=== PATIENT | male | born 1950 | race Hispanic/Latino ===

== ENCOUNTER 2018-10-30 19:54 | Emergency (ER) | payer OTHER ==
--- NOTE | 2018-10-30 20:22 | RAD REPORT ---
EXAM DESCRIPTION: CT - CTHCSPWOC - 10/30/2018 8:08 pm CLINICAL HISTORY: Trauma, head and neck injury. Headache, CVA COMPARISON: <Comparisons> TECHNIQUE: Axial 5 mm thick images of the head were obtained. Axial 2 mm thick images of the cervical spine were obtained with sagittal and coronal reconstruction images generated and reviewed. All CT scans are performed using dose optimization technique as appropriate and may include automated exposure control or mA/KV adjustment according to patient size. FINDINGS: CT HEAD WITHOUT CONTRAST: A large area of intermediate diminished density is seen in the distribution of the right middle cereb ral artery compatible with a subacute infarct. 5 mm right to left midline shift is evident. No areas of hemorrhage seen within the infarcted parenchyma.No hydrocephalus. No extra-axial fluid collection. Small amount of mucus is seen in the left sphenoid sinus. The paranasal sinuses and mastoids are othe rwise clear.The calvarium is intact. Discontinuity of the left zygomatic arch is present compatible w ith fracture, age undetermined. CT CERVICAL SPINE WITHOUT CONTRAST: No fracture or subluxation.Disc thinning with small endplate osteophytes seen lower cervical spine.No prevertebral soft tissues swelling is identified. The odontoid is normal and the lateral masses are symmetric. IMPRESSION: Large area of subacute nonhemorrhagic CVA involving the right middle cerebral artery ter ritory.5 mm right to left midline shift. No acute cervical spine fracture. Age undetermined left zygomatic arch fracture. The findings were discussed with Dr. Chicas in the emergency room on 10/30/2018 at 8:16 p.m. by tele phone.
--- NOTE | 2018-10-30 20:27 | RAD REPORT ---
EXAM DESCRIPTION: CT - Pelvis Wo Cont - 10/30/2018 8:10 pm CLINICAL HISTORY: TRAUMA Trauma, pelvic pain COMPARISON: No comparisons TECHNIQUE: All CT scans are performed using dose optimization technique as appropriate and may inclu de automated exposure control or mA/KV adjustment according to patient size. FINDINGS: No acute fracture or subluxation is seen. Symmetric sacroiliac joints are noted. No pelvic ascites or pelvic mass identified. Bilateral fat containing inguinal hernias. IMPRESSION: No acute finding evident.
--- NOTE | 2018-10-30 20:31 | RAD REPORT ---
EXAM DESCRIPTION: RAD - Chest Single View - 10/30/2018 8:26 pm CLINICAL HISTORY: weakness Chest pain. COMPARISON: CHEST SINGLE VIEW dated 07/18/2015; CHEST SINGLE VIEW dated 10/18/2013 FINDINGS: Portable technique limits examination quality. The lungs are grossly clear. The heart is normal in size. No displaced fractures.Sternotomy wires not ed. IMPRESSION: No acute intrathoracic process suspected.
[2018-10-30 20:34] LABS: Absolute Lymphocytes (CBC) 2.1 K/uL (0.7-4.9); Absolute Monocytes 1.8 K/uL (0.1-1.3); Absolute Neutrophil 17.5 K/uL (1.8-8.0); Basophils % 0.4 % (0-1.3); Lymphocytes % 9.6 % (15.3-44.8); MPV 9.3 fL (7.6-11.3); Monocytes % 8.2 % (3.3-12.3); RBC Red Blood Cell Count 5.41 M/uL (4.33-5.43)
[2018-10-30 20:37] LABS: Protime INR 1.04
[2018-10-30 21:00] LABS: Albumin 3.7 g/dL (3.4-5.0); Bilirubin Direct 0.3 mg/dL (0-0.2); Bilirubin Total 1.3 mg/dL (0.2-1.0); CKMB Creatine Kinase MB 10.8 ng/mL (0.3-3.6); Magnesium 2.5 mg/dL (1.8-2.4); Potassium 4.1 mmol/L (3.5-5.1); Protein, Total 7.6 g/dL (6.4-8.2); Troponin (Emerg Dept Use Only) 0.22 ng/mL (0.0-0.045)
[2018-10-30 21:07] LABS: Blood Morphology Comment NOT SEEN (NOT SEEN); Platelet Estimate ADEQ
[2018-10-30] MEDS ORDERED: FENTANYL CITR 100 MCG/2 ML ONE (21:28)
--- NOTE | 2018-10-30 21:39 | ER ---
Nurse's Notes [facility] Name: Zain Hope Age: 67 yrs Sex: Male : 1950 Arrival Date: 10/30/2018 Time: 19:54 Bed 2 Private MD: Diagnosis: Cerebrovascular disorders in diseases classified elsewhere;left sided CVA Presentation: 10/30 19:55 Presenting complaint: EMS states: 2 days ago pt developed a severe headache with aa1 blurred vision and fell and has been on the floor unable to get up for 2 days. Reports pt's family found him today when they came to his home and broke into his house. Pt's speech is slurred with slight droop noted to L side of face. Pt also unable to move LUE \T\ LLE. Pt c/o pain behind L eye. Clothes are saturated with urine and abrasions are noted to chest, L shoulder, and lan knees. Transition of care: patient was not received from another setting of care. Onset of symptoms was October 28, 2018. Risk Assessment: Do you want to hurt yourself or someone else? Patient reports no desire to harm self or others. Initial Sepsis Screen: Does the patient meet any 2 criteria? Altered Mental Status. HR > 90 bpm. Does the patient have a suspected source of infection? No. Patient's initial sepsis screen is negative. Care prior to arrival: Cervical collar in place. IV initiated. 20 GA, in the left antecubital area, Glucose check: 219 Oxygen administered. via nasal cannula. 19:55 Method Of Arrival: EMS: [facility] aa1 19:55 Acuity: BRYANT 1 aa1 19:55 An acute neurological deficit is present. The patients blood glucose was checked prior aa1 to arriving to the hospital and was found to be hyperglycemic. 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 - Social history:: Smoking status: Patient uses tobacco products, smokes one-half pack cigarettes per day. - Ebola Screening: : Patient negative for fever greater than or equal to 101.5 degrees Fahrenheit, and additional compatible Ebola Virus Disease symptoms. Screenin:56 Abuse screen: Denies threats or abuse. Denies injuries from another. Nutritional aa1 screening: Difficulty chewing/swallowing? Yes. Tuberculosis screening: No symptoms or risk factors identified. Fall Risk Fall in past 12 months (25 points). Secondary diagnosis (15 points) impaired mobility, IV access (20 points). Assessment: 19:57 General: Appears in no apparent distress. uncomfortable, slender, unkempt, Behavior is aa1 calm, cooperative, appropriate for age, Reports feeling ill for 2-3 days. Pain: Complains of pain in face, scalp, right leg and left leg Pain currently is 10 out of 10 on a pain scale. Pain began 2-3 days ago. Is continuous. Neuro: Level of Consciousness is awake, alert, obeys commands, Oriented to person, place, time, situation, Assistant Activities Director are weak on left Paralysis in left arm(s) leg(s) Speech is slurred, Facial droop on left, Pupils are PERRLA, Reports blurred vision headache in left since 2 days ago. Cardiovascular: Denies chest pain, palpitations, Heart tones S1 S2 present Rhythm is regular. Respiratory: Airway is patent Respiratory effort is even, unlabored, Respiratory pattern is regular, symmetrical. GI: No signs and/or symptoms were reported involving the gastrointestinal system. : No signs and/or symptoms were reported regarding the genitourinary system. EENT: No signs and/or symptoms were reported regarding the EENT system. Derm: Skin is healthy with good turgor, Skin is pink, warm \T\ dry. Musculoskeletal: Circulation, motion, and sensation intact. Capillary refill < 3 seconds. Injury Description: Abrasion sustained to anterior aspect of left upper chest, anterior aspect of left shoulder, right knee and left knee. 19:58 The patient has not been NPO before screening. The patient is currently on the aa1 following diet: regular diet at home but has not eaten or drank in 2 days The patient is alert, and able to follow commands. The patient exhibits slurred or garbled speech. The patient is exhibiting difficulty speaking. The patient does not exhibit difficulty understanding words. The patient is unable to swallow own secretions without drooling or the need for suction. Bedside swallow screening discontinued. Patient kept NPO until cleared by Speech Therapy or Physician. Provider notified of bedside swallow screening results: Dave Chicas MD. 20:01 Reassessment: Pt taken to CT at this time. aa1 20:13 Reassessment: Pt back from CT at this time. aa1 20:16 T-PA (Activase) Screening: Contraindications: Patient reports onset of signs and aa1 symptoms of stroke greater than 6 hours ago: Yes. 20:16 Reassessment: Dr. Chicas reports pt will not be candidate for TPA due to onset of aa1 symptoms outside of window. 20:39 Reassessment: Dr. Chicas at bedside discussing pt status with his family. aa1 21:15 Reassessment: Patient appears in no apparent distress at this time. No changes from aa1 previously documented assessment. Patient and/or family updated on plan of care and expected duration. Pain level reassessed. Awaiting acceptance for transfer. 22:10 Reassessment: Patient appears in no apparent distress at this time. No changes from aa1 previously documented assessment. Patient and/or family updated on plan of care and expected duration. Pain level reassessed. Attempted to call report to [facility] but transfer center was unable to contact nurse who will be receiving pt and said they will have her call back. 22:35 Reassessment: Report given to Arabella Ortiz RN at [facility]. aa1 23:05 Reassessment: Patient appears in no apparent distress at this time. No changes from aa1 previously documented assessment. [facility] present for transfer Patient states feeling better. Vital Signs: 19:55 BP 185 / 108; Pulse 109; Resp 20; Temp 97.8(A); Pulse Ox 100% on R/A; Weight 77.11 kg; aa1 Height 5 ft. 11 in. (180.34 cm); Pain 10/10; 20:29 BP 181 / 89; Pulse 82; Resp 16; Pulse Ox 99% on 2 lpm NC; aa1 20:40 BP 164 / 102; Pulse 94; Resp 18; Pulse Ox 100% on 2 lpm NC; aa1 21:20 BP 172 / 103; Pulse 95; Resp 16; Temp 97.9; Pulse Ox 100% on R/A; aa1 22:02 BP 145 / 81; Pulse 90; Resp 16; Temp 98.1; Pulse Ox 99% on R/A; Pain 7/10; aa1 22:07 Pain 7/10; aa1 23:05 BP 159 / 74; Pulse 96; Resp 16; Pulse Ox 100% on 2 lpm NC; Pain 7/10; aa1 19:55 Body Mass Index 23.71 (77.11 kg, 180.34 cm) aa1 Tawnya Coma Score: 19:55 Eye Response: spontaneous(4). Verbal Response: oriented(5). Motor Response: obeys aa1 commands(6). Total: 15. 21:20 Eye Response: spontaneous(4). Verbal Response: oriented(5). Motor Response: obeys aa1 commands(6). Total: 15. 22:02 Eye Response: spontaneous(4). Verbal Response: oriented(5). Motor Response: obeys aa1 commands(6). Total: 15. NIH Stroke Scale Scores: 19:59 NIHSS Score: 16 aa1 ED Course: 19:54 Patient arrived in ED. ds1 19:55 Dave Chicas MD is Attending Physician. tw4 19:55 Arm band placed on right wrist. Patient placed in an exam room, on a stretcher. aa1 19:56 Patient has correct armband on for positive identification. Placed in gown. Side rails aa1 up X2. gambling monitor on. Pulse ox on. NIBP on. Warm blanket given. 19:56 Maintain EMS IV. Dressing intact. Site clean \T\ dry. Gauge \T\ site: 20g LAC. aa 1 19:58 Oxygen administration via nasal cannula \T\ 2L/min. aa1 20:08 CT Head C Spine In Process Unspecified. EDMS 20:10 CT Pelvis wo Cont In Process Unspecified. EDMS 20:11 Triage completed. aa1 20:14 EKG done, by ED staff, reviewed by Dave Chicas MD. aa1 20:17 Initial lab(s) drawn, by liaison inspection laboratory assistant, sent to lab. aa1 20:26 Stroke CXR 1 View In Process Unspecified. EDMS 20:28 Nora Naranjo, RN is Primary Nurse. aa1 20:40 Notified ED physician of a critical lab result(s). WBCs 21.5. aa1 21:02 Notified ED physician of a critical lab result(s). cpk of 4013, ckmb 10.8. fc 22:16 No provider procedures requiring assistance completed. Patient transferred, IV remains aa1 in place. Removal of Cervical Collar. 22:18 Pillow given. aa1 Administered Medications: 21:23 Drug: fentaNYL (PF) 25 mcg Route: IVP; Site: left antecubital; lp1 22:07 Follow up: Pain 7/10 Adult; Response: No adverse reaction; Pain is decreased aa1 22:19 Drug: NS 0.9% 1000 ml Route: IV; Rate: 1 bolus; Site: left antecubital; aa1 Point of Care Testing: Blood Glucose: 20:14 Blood Glucose: 180 mg/dL; aa1 Ranges: Outcome: 21:39 ER care complete, transfer ordered by . tw4 23:05 Transferred by ground EMS Transfer form completed. aa1 23:05 Condition: stable 23:05 Discharge instructions given to patient, family, Instructed on the need for transfer, Demonstrated understanding of instructions. 23:10 Patient left the ED. aa1 NIH Stroke Scale - NIH Stroke Score Date: 10/30/2018 Time: 19:59 Total Score = 16 1a. Level of Consciousness (LOC) - 0(Alert) 1b. Level of Consciousness (LOC) (Year \T\ Age) - 0(Both) 1c. LOC Commands (Open \T\ Closes Eyes/Wel[employer] Apprentice [employer]) - 0(Both) 2. Best Gaze (Lateral Gaze Paresis) - 0(Normal) 3. Visual Field Loss - 0(No visual loss) 4. Facial Palsy - 2(Partial paralysis) 5a. Left Arm: Motor (10-second hold) - 4(No movement) 5b. Right Arm: Motor (10-second hold) - 0(No drift) 6a. Left Leg: Motor (5-second hold - always test supine) - 4(No movement) 6b. Right Leg: Motor (5-second hold - always test supine) - 0(No drift) 7. Limb Ataxia (finger/nose \T\ heel/mejias - test with eyes open) - 1(Present in one limb) 8. Sensory Loss (pinprick arms/legs/face) - 1(Mild to moderate loss) 9. Best Language: Aphasia (description/naming/reading) - 1(Mild to moderate aphasia) 10. Dysarthria (speech clarity - read or repeat words) - 1(Mild to Moderate) 11. Extinction and Inattention (visual/tactile/auditory/spatial/personal) - 2(Profound) Initials: aa1 Signatures: Dispatcher [employer] EDNora Meyer RN RN aa1 Sophie Wilkerson RN RN Melissa Bolivar ds1 Roma Mock RN RN lp1 Dave Chicas MD MD tw4 Corrections: (The following items were deleted from the chart) 20:42 19:59 T-PA (Activase) Screening: Contraindications: Patient reports onset of aa1 signs and symptoms of stroke greater than 6 hours ago: Yes. aa1 22:07 22:02 BP 145 / 81; Pulse 90bpm; Resp 16bpm; Pulse Ox 99% RA; aa1 aa 22:17 20:17 by liaison inspection laboratory assistant, sent to lab. aa1 aa1
--- NOTE | 2018-10-30 21:40 | EDPHYS ---
Physician Documentation [facility] Name: Zain Hope Age: 67 yrs Sex: Male : 1950 Arrival Date: 10/30/2018 Time: 19:54 Bed 2 Private MD: ED Physician Dave Chicas HPI: 10/30 21:51 This 67 yrs old Male presents to ER via EMS with complaints of Weakness, tw4 Slurred Speech. 21:51 The patient presents to the emergency department with weakness of the left upper tw4 extremity, that is severe, complete paralysis, left lower extremity, that is severe, complete paralysis, left side of the face, a speech or higher order brain function problem, aphasia. Onset: The symptoms/episode began/occurred 2 day(s) ago. Context: occurred at home. Associated signs and symptoms: The patient has no apparent associated signs or symptoms. Severity of symptoms: At their worst the symptoms were moderate in the emergency department the symptoms are unchanged. Patient's baseline: Neuro: alert and fully oriented, Motor: no deficits, Ambulation: walks without assistance. Current symptoms: Currently, the patient is not experiencing any symptoms. The patient has not experienced similar symptoms in the past. 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 - Social history:: Smoking status: Patient uses tobacco products, smokes one-half pack cigarettes per day. - Ebola Screening: : Patient negative for fever greater than or equal to 101.5 degrees Fahrenheit, and additional compatible Ebola Virus Disease symptoms. ROS: 21:51 Constitutional: Negative for fever, chills, and weight loss, Eyes: Negative for injury, tw4 pain, redness, and discharge, Cardiovascular: Negative for chest pain, palpitations, and edema, Respiratory: Negative for shortness of breath, cough, wheezing, and pleuritic chest pain, Abdomen/GI: Negative for abdominal pain, nausea, vomiting, diarrhea, and constipation, Back: Negative for injury and pain, MS/Extremity: Negative for injury and deformity. 21:51 Neuro: Positive for gait disturbance, numbness, speech changes, weakness. Exam: 21:51 Constitutional: This is a well developed, well nourished patient who is awake, alert, tw4 and in no acute distress. Head/Face: Normocephalic, atraumatic. Chest/axilla: Normal chest wall appearance and motion. Nontender with no deformity. No lesions are appreciated. Cardiovascular: Regular rate and rhythm with a normal S1 and S2. No gallops, murmurs, or rubs. Normal PMI, no JVD. No pulse deficits. Respiratory: Lungs have equal breath sounds bilaterally, clear to auscultation and percussion. No rales, rhonchi or wheezes noted. No increased work of breathing, no retractions or nasal flaring. Abdomen/GI: Soft, non-tender, with normal bowel sounds. No distension or tympany. No guarding or rebound. No evidence of tenderness throughout. Back: No spinal tenderness. No costovertebral tenderness. Full range of motion. MS/ Extremity: Pulses equal, no cyanosis. Neurovascular intact. Full, normal range of motion. 21:51 Neuro: Orientation: is normal, Mentation: is normal, Motor: complete paralysis. Vital Signs: 19:55 BP 185 / 108; Pulse 109; Resp 20; Temp 97.8(A); Pulse Ox 100% on R/A; Weight 77.11 kg; aa1 Height 5 ft. 11 in. (180.34 cm); Pain 10/10; 20:29 BP 181 / 89; Pulse 82; Resp 16; Pulse Ox 99% on 2 lpm NC; aa1 20:40 BP 164 / 102; Pulse 94; Resp 18; Pulse Ox 100% on 2 lpm NC; aa1 21:20 BP 172 / 103; Pulse 95; Resp 16; Temp 97.9; Pulse Ox 100% on R/A; aa1 22:02 BP 145 / 81; Pulse 90; Resp 16; Temp 98.1; Pulse Ox 99% on R/A; Pain 7/10; aa1 22:07 Pain 7/10; aa1 23:05 BP 159 / 74; Pulse 96; Resp 16; Pulse Ox 100% on 2 lpm NC; Pain 7/10; aa1 19:55 Body Mass Index 23.71 (77.11 kg, 180.34 cm) aa1 NIH Stroke Scale Scores: 19:59 NIHSS Score: 16 aa1 Pelham Coma Score: 19:55 Eye Response: spontaneous(4). Verbal Response: oriented(5). Motor Response: obeys aa1 commands(6). Total: 15. 21:20 Eye Response: spontaneous(4). Verbal Response: oriented(5). Motor Response: obeys aa1 commands(6). Total: 15. 22:02 Eye Response: spontaneous(4). Verbal Response: oriented(5). Motor Response: obeys aa1 commands(6). Total: 15. MDM: 19:55 Patient medically screened. tw4 21:51 Data reviewed: vital signs, nurses notes. Data interpreted: Pulse oximetry: tw4 Interpretation: normal. Test interpretation: by ED physician or midlevel provider: ECG. Counseling: I had a detailed discussion with the patient and/or guardian regarding: the historical points, exam findings, and any diagnostic results supporting the discharge/admit diagnosis, the presence of at least one elevated blood pressure reading (>120/80) during this emergency department visit. 10/30 20:00 Order name: Amylase, Serum 10/30 20:00 Order name: Hepatic Function; Complete Time: 21:29 [facility] 10/30 21:29 Interpretation: Normal except: AST 74; BILIT 1.3; BILID 0.3; GLOB 3.9; A/G 0.9. 10/30 20:00 Order name: Magnesium; Complete Time: 21:29 [facility] 10/30 21:29 Interpretation: Normal except: MG 2.5. 10/30 20:00 Order name: Troponin (emerg Dept Use Only); Complete Time: 21:29 [facility] 10/30 21:29 Interpretation: Normal except. 10/30 20:00 Order name: Lipase 10/30 20:00 Order name: CPK; Complete Time: 21:27 [facility] 10/30 20:00 Order name: Ckmb; Complete Time: 21:28 [facility] 10/30 21:28 Interpretation: Normal except: CKMB 10.8. 10/30 20:00 Order name: Basic Metabolic Panel; Complete Time: 21:27 [facility] 10/30 21:28 Interpretation: Normal except: GLUC 182; BUN 35; GFR 59. 10/30 20:00 Order name: CBC with Diff; Complete Time: 21:29 tw4 10/30 21:29 Interpretation: Normal except: WBC 21.5; MCV 85.1. tw4 10/30 20:00 Order name: Protime (+inr); Complete Time: 21:29 tw4 10/30 21:29 Interpretation: Within normal limits. tw4 10/30 20:00 Order name: Ptt, Activated; Complete Time: 21:29 tw4 10/30 21:29 Interpretation: Within normal limits: PTT 29.4. tw4 10/30 21:07 Order name: Manual Differential EDRI 10/30 22:07 Order name: Glucose, Ancillary Testing [facility]RI 10/30 20:00 Order name: Stroke CXR 1 View tw4 10/30 20:00 Order name: Accucheck; Complete Time: 20:29 tw4 10/30 20:00 Order name: Cardiac monitoring; Complete Time: 20:29 4 10/30 20:00 Order name: EKG - Nurse/Tech; Complete Time: 20:29 4 10/30 20:00 Order name: IV Saline Lock; Complete Time: 20:29 tw4 10/30 20:00 Order name: Labs collected and sent; Complete Time: 20:29 4 10/30 20:00 Order name: NPO; Complete Time: 20:29 tw4 10/30 20:00 Order name: O2 Per Protocol; Complete Time: 20:28 tw4 10/30 20:00 Order name: O2 Sat Monitoring; Complete Time: 20:28 4 10/30 20:00 Order name: CT Head C Spine; Complete Time: 20:57 tw4 10/30 20:00 Order name: CT Pelvis wo Cont tw4 10/30 20:00 Order name: Stroke Swallow Screen; Complete Time: 20:28 tw4 EC:51 Rate is 92 beats/min. Rhythm is regular, Normal Sinus Rhythm. QRS Fitzpatrick is Normal. PA tw4 interval is normal. QRS interval is normal. QT interval is normal. No Q waves. No ST changes noted. Clinical impression: NSR w/ Non-specific ST/T Changes. Interpreted by me. Reviewed by me. Administered Medications: 21:23 Drug: fentaNYL (PF) 25 mcg Route: IVP; Site: left antecubital; lp1 22:07 Follow up: Pain 02/06 Adult; Response: No adverse reaction; Pain is decreased aa1 22:19 Drug: NS 0.9% 1000 ml Route: IV; Rate: 1 bolus; Site: left antecubital; aa1 Point of Care Testing: Blood Glucose: 20:14 Blood Glucose: 180 mg/dL; aa1 Ranges: Critical Glucose Levels:Adult <50 mg/dl or >400 mg/dl <40 mg/dl or >180 mg/dl Disposition: 10/30/18 21:[address] [facility]. Diagnosis are Cerebrovascular disorders in diseases classified elsewhere, left sided CVA. - Reason for transfer: Higher level of care. - Accepting physician is Dr Herzog. - Condition is Serious. - Problem is an ongoing problem. - Symptoms are unchanged. NIH Stroke Scale - NIH Stroke Score Date: 10/30/2018 Time: 19:59 Total Score = 16 1a. Level of Consciousness (LOC) - 0(Alert) 1b. Level of Consciousness (LOC) (Year \T\ Age) - 0(Both) 1c. LOC Commands (Open \T\ Closes Eyes/Data Center Project Manager) - 0(Both) 2. Best Gaze (Lateral Gaze Paresis) - 0(Normal) 3. Visual Field Loss - 0(No visual loss) 4. Facial Palsy - 2(Partial paralysis) 5a. Left Arm: Motor (10-second hold) - 4(No movement) 5b. Right Arm: Motor (10-second hold) - 0(No drift) 6a. Left Leg: Motor (5-second hold - always test supine) - 4(No movement) 6b. Right Leg: Motor (5-second hold - always test supine) - 0(No drift) 7. Limb Ataxia (finger/nose \T\ heel/mejias - test with eyes open) - 1(Present in one limb) 8. Sensory Loss (pinprick arms/legs/face) - 1(Mild to moderate loss) 9. Best Language: Aphasia (description/naming/reading) - 1(Mild to moderate aphasia) 10. Dysarthria (speech clarity - read or repeat words) - 1(Mild to Moderate) 11. Extinction and Inattention (visual/tactile/auditory/spatial/personal) - 2(Profound) Initials: aa1 Signatures: Dispatcher [employer] Nora Saravia RN RN aa1 Roma Mock RN RN lp1 aDve Chicas MD MD tw4 Corrections: (The following items were deleted from the chart) 20:05 20:01 CT-STROKE BRAIN W/O CONTRAST+CT.RAD.BRZ ordered. EDRI EDMS 20:52 20:16 CREATINE PHOSPHOKINASE+C.LAB.BRZ ordered. EDRI EDMS 23:10 21:39 10/30/2018 21:[address] [facility]. aa1 Diagnosis is Cerebrovascular disorders in diseases classified elsewhere; left sided CVA. Reason for transfer: Higher level of care. Accepting physician is Dr Herzog. Condition is Serious. Problem is an ongoing problem. Symptoms are unchanged. tw4
== END 2018-10-30 23:10 | disposition short-term general hospital (02) ==
LOC: ER 19:54
DX: I63.9 Cerebral infarction, unspecified (principal); I10 Essential (primary) hypertension; F17.210 Nicotine dependence, cigarettes, uncomplicated; R29.716 NIHSS score 16; Z95.1 Presence of aortocoronary bypass graft
CPT/HCPCS: 85025; 80048; 36415; 82150; 83735; 82550; 85610; 82962; 80076; 85730; 84484; 82553; 83690; 70450; 72125; 72192; 71045; J3010

== ENCOUNTER 2019-04-16 02:54 | Emergency (ER) | payer OTHER ==
--- OUTSIDE RECORDS SUMMARY | 2019-04-16 02:59 | XMS REPORT | Clinical Summary ---
:1950 Author Organization [facility] Address [address] [place] [address] Care Team Providers Name Role Phone Unavailable Primary Care Provider Unavailable Allergies No Known Allergies Medications Medication Sig Dispensed Refills Start End Date Status Date metFORMIN Take 1,000 mg by 0 Active (GLUCOPHAGE) 1000 mouth 2 (two) MG tablet times daily with breakfast and dinner. levothyroxine Take 50 mcg by 0 Active (SYNTHROID, mouth Every LEVOTHROID) 50 MCG morning on an tablet empty stomach. losartan 12.5 MG Take 12.5 mg by 0 Active halftab half mouth daily. tablet rosuvastatin Take 20 mg by 0 Active (CRESTOR) 20 MG mouth daily. tablet metoprolol Take 12.5 mg by 0 Active (LOPRESSOR) 12.5 mouth 2 (two) MG halftab half times daily. tablet acetaminophen Take 2 tablets 30 tablet 0 11/15/19 Active (TYLENOL) 325 MG (650 mg total) by 9 20 tablet mouth every 4 (four) hours as needed for up to 360 days. aspirin 325 MG Take 1 tablet (325 0 11/21/19 Active tablet mg total) by mouth 9 20 daily. fLUoxetine Take 1 capsule (20 30 capsule 0 11/21/19 Active (PROZAC) 20 MG mg total) by mouth 9 20 capsule daily. senna (SENOKOT) 1 tablet (8.6 mg 0 11/20/19 Active 8.6 mg tablet total) by G-tube 9 20 route daily with lunch. ticagrelor Take 1 tablet (90 0 Active (BRILINTA) 90 mg mg total) by mouth 9 Tab tablet 2 (two) times daily. zinc oxide 20 % Apply topically as 56.7 g 0 11/20/19 Active ointment needed. 9 insulin glargine Inject 8 Units 10 mL 0 Active (LANTUS U-100 subcutaneously 2 9 INSULIN) 100 (two) times daily unit/mL injection Use as directed. clopidogrel Take 75 mg by 0 11/21/19 Discontinued (PLAVIX) 75 mg mouth daily. 19 tablet insulin degludec Inject 0 11/21/19 Discontinued 200 unit/mL (3 mL) subcutaneously. [address] 1 patch onto 30 patch 0 12/21/19 (LIDODERM) 5 % the skin daily for 04 18 patch 30 days Remove & Discard patch within 12 hours or as directed by MD. nicotine (NICODERM Place 1 patch onto 28 patch 0 12/22/19 CQ) 21 mg/24 hr the skin daily for 04 18 patch 30 days. traMADol (ULTRAM) Take 2 tablets 30 tablet 0 12/01/19 50 mg tablet (100 mg total) by 04 18 mouth every 6 (six) hours as needed for up to 10 days. Max Daily Amount: 400 mg sulfamethoxazole-t Take 10 mLs by 0 11/21/19 Discontinued rimethoprim mouth 2 (two) 9 (BACTRIM,SEPTRA) times daily for 2 200-40 mg/5 mL days. suspension amoxicillin-clavul Take 6.3 mLs (250 0 11/24/19 anate (AUGMENTIN) mg total) by mouth 04 18 200-28.5 mg/5 mL 2 (two) times suspension daily for 3 days. Active Problems Problem Noted Date Stenosis of right carotid artery 11/08/2018 History of right common carotid artery stent placement 11/08/2018 Essential hypertension 11/08/2018 Acute ischemic stroke 10/31/2018 Encounters Date Type Specialty Care Team Description 11/16/2018 Surgery Kelechi Garcia R & L CATH / MD Mathew CORONARY ANGIOS / PCI 11/16/2018 Orders Only General Internal Medicine 11/09/2018 Anesthesia Event Gastroenterology Scooter Phan 11/09/2018 Surgery Gastroenterology Arely Childs UPPER ENDOSCOPY,BEAN Irving MD 11/07/2018 Surgery Virtual, Surgeon PROCEDURE DONE OUTSIDE OR 11/07/2018 Anesthesia Event Desire Lira MD 11/05/2018 Anesthesia Event Mirlande Gonzalez MD 11/05/2018 Surgery Virtual, Surgeon PROCEDURE DONE OUTSIDE OR 11/02/2018 Anesthesia Event Vanessa Bailey MD 11/02/2018 Surgery Virtual, Surgeon Canceled PROCEDURE DONE OUTSIDE OR 10/31/2018 [facility], Cerebrovascular accident (CVA) due to occlusion of right middle cerebral artery (HCC); - Encounter Medicine Suhail Non-STEMI (non-ST elevated myocardial infarction) ([facility]); 11/20/2018 MD Garry Type 2 diabetes mellitus with complication, unspecified whether chcf insulin use ([facility]); Brooks, Essential hypertension; MD Elmer Coronary artery disease due to lipid rich plaque; Liliana Adame, Stroke due to embolism of right middle cerebral artery ([facility]); Stenosis of right carotid artery; Oropharyngeal dysphagia; Acute ischemic stroke ([facility]); History of right common carotid artery stent placement; Impaired mobility and ADLs; Debility; Physical deconditioning; 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 Last Filed Vital Signs Vital Sign Reading Time Taken Blood Pressure 151/78 11/20/2018 3:32 PM CDT Pulse 84 11/20/2018 3:32 PM CDT Temperature 35.6 C (96.1 F) 11/20/2018 3:32 PM CDT Respiratory Rate 19 11/20/2018 3:32 PM CDT Oxygen Saturation 96% 11/20/2018 3:32 PM CDT Inhaled Oxygen Concentration 21% 11/16/2018 9:22 PM CDT Weight 71 kg (156 lb 8.4 oz) 11/07/2018 8:00 PM CDT Height 180.3 cm (5' 11") 11/07/2018 8:00 PM CDT Body Mass Index 21.83 11/07/2018 8:00 PM CDT Plan of Treatment Not on file Procedures Procedure Name Priority Date/Time Associated Comments Diagnosis REPORT OF PROCEDURE - 11/22/2018 11:40 ENDOSCOPY SCAN AM CDT CARDIAC CATH REPORT - 11/22/2018 11:40 SCAN AM CDT RHYTHM STRIP - SCAN 11/22/2018 11:40 AM CDT POCT-GLUCOSE METER Routine 11/20/2018 5:09 Results for this PM CDT procedure are in the results section. POCT-GLUCOSE METER Routine 11/20/2018 12:35 Results for this PM CDT procedure are in the results section. POCT-GLUCOSE METER Routine 11/20/2018 6:15 Results for this AM CDT procedure are in the results section. CBC (HEMOGRAM ONLY) Routine 11/20/2018 4:53 Results for this AM CDT procedure are in the results section. BASIC METABOLIC PANEL Routine 11/20/2018 4:53 Results for this (7) AM CDT procedure are in the results section. POCT-GLUCOSE METER Routine 11/19/2018 11:35 Results for this PM CDT procedure are in the results section. POCT-GLUCOSE METER Routine 11/19/2018 5:44 Results for this PM CDT procedure are in the results section. URINALYSIS WITH Routine 11/19/2018 1:26 Results for this MICROSCOPIC IF PM CDT procedure are in INDICATED the results section. POCT-GLUCOSE METER Routine 11/19/2018 11:56 Results for this AM CDT procedure are in the results section. POCT-GLUCOSE METER Routine 11/19/2018 6:12 Results for this AM CDT procedure are in the results section. BASIC METABOLIC PANEL Routine 11/19/2018 4:34 Results for this (7) AM CDT procedure are in the results section. CBC (HEMOGRAM ONLY) Routine 11/19/2018 4:34 Results for this AM CDT procedure are in the results section. POCT-GLUCOSE METER Routine 11/18/2018 5:08 Results for this PM CDT procedure are in the results section. URINALYSIS W/ REFLEX Routine 11/18/2018 1:47 Results for this URINE CULTURE PM CDT procedure are in the results section. URINE CULTURE Routine 11/18/2018 1:47 Results for this PM CDT procedure are in the results section. POCT-GLUCOSE METER Routine 11/18/2018 11:33 Results for this AM CDT procedure are in the results section. POCT-GLUCOSE METER Routine 11/18/2018 9:42 Results for this AM CDT procedure are in the results section. ECG 12-LEAD STAT 11/18/2018 4:57 Results for this AM CDT procedure are in the results section. ECG 12-LEAD Routine 11/18/2018 4:56 Results for this AM CDT procedure are in the results section. TROPONIN I Routine 11/18/2018 4:42 Results for this AM CDT procedure are in the results section. BASIC METABOLIC PANEL Routine 11/18/2018 4:42 Results for this (7) AM CDT procedure are in the results section. CBC (HEMOGRAM ONLY) Routine 11/18/2018 4:42 Results for this AM CDT procedure are in the results section. POCT-GLUCOSE METER Routine 11/18/2018 1:40 Results for this AM CDT procedure are in the results section. TROPONIN I Routine 11/17/2018 10:54 Results for this PM CDT procedure are in the results section. URINALYSIS Routine 11/17/2018 10:48 Results for this MICROSCOPIC PM CDT procedure are in the results section. URINALYSIS WITH Routine 11/17/2018 10:48 Results for this MICROSCOPIC IF PM CDT procedure are in INDICATED the results section. BLOOD CULTURE Routine 11/17/2018 5:04 Results for this PM CDT procedure are in the results section. TROPONIN I Routine 11/17/2018 4:58 Results for this PM CDT procedure are in the results section. BLOOD CULTURE Routine 11/17/2018 4:57 Results for this PM CDT procedure are in the results section. POCT-GLUCOSE METER Routine 11/17/2018 4:23 Results for this PM CDT procedure are in the results section. POCT-GLUCOSE METER Routine 11/17/2018 11:18 Results for this AM CDT procedure are in the results section. TROPONIN I Routine 11/17/2018 10:17 Results for this AM CDT procedure are in the results section. POCT-GLUCOSE METER Routine 11/17/2018 5:49 Results for this AM CDT procedure are in the results section. BASIC METABOLIC PANEL Routine 11/17/2018 4:21 Results for this (7) AM CDT procedure are in the results section. CBC (HEMOGRAM ONLY) Routine 11/17/2018 4:21 Results for this AM CDT procedure are in the results section. TROPONIN I Routine 11/17/2018 4:21 Results for this AM CDT procedure are in the results section. POCT-GLUCOSE METER Routine 11/16/2018 11:36 Results for this PM CDT procedure are in the results section. ECG 12-LEAD STAT 11/16/2018 6:36 Results for this PM CDT procedure are in the results section. POCT-GLUCOSE METER Routine 11/16/2018 6:08 Results for this PM CDT procedure are in the results section. TROPONIN I STAT 11/16/2018 6:08 Results for this PM CDT procedure are in the results section. ECG 12-LEAD Routine 11/16/2018 2:24 PM CDT Procedure Note - Interface, External Ris In - 11/16/2018 3:36 PM CDT Ventricular Rate 71 BPM Atrial Rate 71 BPM P-R Interval 148 ms QRS Duration 98 ms Q-T Interval 404 ms QTC Calculation(Bazett) 439 ms P [place] 68 degrees R [place] 26 degrees T [place] 102 degrees Normal sinus rhythm with sinus arrhythmia Possible Inferior infarct (cited on or before 01-NOV-2018) Abnormal ECG When compared with ECG of 01-NOV-2018 15:31, Premature atrial complexes are no longer Present ECG 12-LEAD Routine 11/16/2018 2:24 Results for this PM CDT procedure are in the results section. R & L CATH / CORONARY 11/16/2018 11:40 Chest pain, ANGIOS / PCI AM CDT unspecified type POCT-GLUCOSE METER Routine 11/16/2018 5:52 Results for this AM CDT procedure are in the results section. BASIC METABOLIC PANEL Routine 11/16/2018 5:43 Results for this (7) AM CDT procedure are in the results section. CBC (HEMOGRAM ONLY) Routine 11/16/2018 5:43 Results for this AM CDT procedure are in the results section. POCT-GLUCOSE METER Routine 11/15/2018 11:39 Results for this PM CDT procedure are in the results section. POCT-GLUCOSE METER Routine 11/15/2018 5:32 Results for this PM CDT procedure are in the results section. POCT-GLUCOSE METER Routine 11/15/2018 12:20 Results for this PM CDT procedure are in the results section. POCT-GLUCOSE METER Routine 11/15/2018 6:30 Results for this AM CDT procedure are in the results section. BASIC METABOLIC PANEL Routine 11/15/2018 5:11 Results for this (7) AM CDT procedure are in the results section. CBC (HEMOGRAM ONLY) Routine 11/15/2018 5:11 Results for this AM CDT procedure are in the results section. POCT-GLUCOSE METER Routine 11/15/2018 2:31 Results for this AM CDT procedure are in the results section. POCT-GLUCOSE METER Routine 11/14/2018 4:49 Results for this PM CDT procedure are in the results section. POCT-GLUCOSE METER Routine 11/14/2018 12:07 Results for this PM CDT procedure are in the results section. POCT-GLUCOSE METER Routine 11/14/2018 5:34 Results for this AM CDT procedure are in the results section. CBC (HEMOGRAM ONLY) Routine 11/14/2018 4:50 Results for this AM CDT procedure are in the results section. BASIC METABOLIC PANEL Routine 11/14/2018 4:50 Results for this (7) AM CDT procedure are in the results section. POCT-GLUCOSE METER Routine 11/14/2018 12:09 Results for this AM CDT procedure are in the results section. ECHOCARDIOGRAM REPORT - 11/13/2018 9:22 SCAN PM CDT POCT-GLUCOSE METER Routine 11/13/2018 5:57 Results for this PM CDT procedure are in the results section. CT SPINE CERVICAL Routine 11/13/2018 3:14 Results for this WITHOUT IV CONTRAST PM CDT procedure are in the results section. CT BRAIN WITHOUT IV Routine 11/13/2018 3:13 Results for this CONTRAST PM CDT procedure are in the results section. POCT-GLUCOSE METER Routine 11/13/2018 12:08 Results for this PM CDT procedure are in the results section. CBC W/PLT COUNT & AUTO Routine 11/13/2018 7:21 Results for this DIFFERENTIAL AM CDT procedure are in the results section. BASIC METABOLIC PANEL Routine 11/13/2018 7:21 Results for this (7) AM CDT procedure are in the results section. CBC W/PLT COUNT & AUTO Routine 11/13/2018 7:21 Results for this DIFFERENTIAL AM CDT procedure are in the results section. POCT-GLUCOSE METER Routine 11/13/2018 5:34 Results for this AM CDT procedure are in the results section. POCT-GLUCOSE METER Routine 11/13/2018 12:23 Results for this AM CDT procedure are in the results section. POCT-GLUCOSE METER Routine 11/12/2018 6:07 Results for this PM CDT procedure are in the results section. LIMITED 2D Routine 11/12/2018 2:31 Results for this ECHOCARDIOGRAM PM CDT procedure are in the results section. POCT-GLUCOSE METER Routine 11/12/2018 12:36 Results for this PM CDT procedure are in the results section. POCT-GLUCOSE METER Routine 11/12/2018 6:31 Results for this AM CDT procedure are in the results section. BASIC METABOLIC PANEL Routine 11/12/2018 4:44 Results for this (7) AM CDT procedure are in the results section. CBC (HEMOGRAM ONLY) Routine 11/12/2018 4:44 Results for this AM CDT procedure are in the results section. POCT-GLUCOSE METER Routine 11/12/2018 12:09 Results for this AM CDT procedure are in the results section. POCT-GLUCOSE METER Routine 11/11/2018 5:01 Results for this PM CDT procedure are in the results section. POCT-GLUCOSE METER Routine 11/11/2018 12:39 Results for this PM CDT procedure are in the results section. POCT-GLUCOSE METER Routine 11/11/2018 6:01 Results for this AM CDT procedure are in the results section. BASIC METABOLIC PANEL Routine 11/11/2018 4:23 Results for this (7) AM CDT procedure are in the results section. CBC (HEMOGRAM ONLY) Routine 11/11/2018 4:23 Results for this AM CDT procedure are in the results section. POCT-GLUCOSE METER Routine 11/11/2018 12:10 Results for this AM CDT procedure are in the results section. POCT-GLUCOSE METER Routine 2018 5:42 Results for this PM CDT procedure are in the results section. POCT-GLUCOSE METER Routine 2018 12:02 Results for this PM CDT procedure are in the results section. POCT-GLUCOSE METER Routine 2018 6:06 Results for this AM CDT procedure are in the results section. BASIC METABOLIC PANEL Routine 2018 4:37 Results for this (7) AM CDT procedure are in the results section. CBC (HEMOGRAM ONLY) Routine 2018 4:37 Results for this AM CDT procedure are in the results section. POCT-GLUCOSE METER Routine 2018 1:09 Results for this AM CDT procedure are in the results section. REPORT OF PROCEDURE - 11/09/2018 3:51 ENDOSCOPY URL PM CDT UPPER ENDOSCOPY,PEG 11/09/2018 3:00 Dysphagia, PM CDT unspecified type Special Needs (REG TF) POCT-GLUCOSE METER Routine 11/09/2018 11:46 AM Results for this CDT procedure are in the results section. POCT-GLUCOSE METER Routine 11/09/2018 6:39 AM Results for this CDT procedure are in the results section. BASIC METABOLIC PANEL Routine 11/09/2018 5:14 AM Results for this (7) CDT procedure are in the results section. CBC (HEMOGRAM ONLY) Routine 11/09/2018 5:14 AM Results for this CDT procedure are in the results section. POCT-GLUCOSE METER Routine 11/08/2018 11:56 PM Results for this CDT procedure are in the results section. POCT-GLUCOSE METER Routine 11/08/2018 5:04 PM Results for this CDT procedure are in the results section. POCT-GLUCOSE METER Routine 11/08/2018 11:29 AM Results for this CDT procedure are in the results section. POCT-GLUCOSE METER Routine 11/08/2018 6:35 AM Results for this CDT procedure are in the results section. BASIC METABOLIC PANEL Routine 11/08/2018 5:14 AM Results for this (7) CDT procedure are in the results section. CBC (HEMOGRAM ONLY) Routine 11/08/2018 5:14 AM Results for this CDT procedure are in the results section. POCT-GLUCOSE METER Routine 11/08/2018 1:20 AM Results for this CDT procedure are in the results section. POCT-GLUCOSE METER Routine 11/07/2018 6:11 PM Results for this CDT procedure are in the results section. NV CAROTID ARTERY Routine 11/07/2018 4:48 PM Results for this STENT PLACEMENT W CDT procedure are in PROTECTION the results section. PROCEDURE DONE OUTSIDE 11/07/2018 4:00 PM Carotid stenosis, OR CDT right Special Needs REQ: AFTERNOON POCT-ACT Routine 11/07/2018 3:51 PM Results for this CDT procedure are in the results section. POCT-GLUCOSE METER Routine 11/07/2018 12:40 PM Results for this CDT procedure are in the results section. POCT-P2Y12 PLATELET STAT 11/07/2018 12:09 PM Results for this AGGREGATION CDT procedure are in the results section. CT BRAIN WITHOUT IV Routine 11/07/2018 9:02 AM Results for this CONTRAST CDT procedure are in the results section. POCT-GLUCOSE METER Routine 11/07/2018 6:36 AM Results for this CDT procedure are in the results section. POCT-P2Y12 PLATELET Routine 11/07/2018 5:17 AM Results for this AGGREGATION CDT procedure are in the results section. BASIC METABOLIC PANEL Routine 11/07/2018 5:17 AM Results for this (7) CDT procedure are in the results section. CBC (HEMOGRAM ONLY) Routine 11/07/2018 5:17 AM Results for this CDT procedure are in the results section. POCT-GLUCOSE METER Routine 11/06/2018 11:27 PM Results for this CDT procedure are in the results section. XR ABDOMEN 1 VIEW STAT 11/06/2018 6:45 PM Results for this CDT procedure are in the results section. POCT-GLUCOSE METER Routine 11/06/2018 6:31 PM Results for this CDT procedure are in the results section. POCT-GLUCOSE METER Routine 11/06/2018 2:32 PM Results for this CDT procedure are in the results section. XR ESOPH SWALLOW Routine 11/06/2018 1:35 PM Results for this FUNCTION W/CINE VIDEO CDT procedure are in the results section. POCT-GLUCOSE METER Routine 11/06/2018 6:13 AM Results for this CDT procedure are in the results section. BASIC METABOLIC PANEL Routine 11/06/2018 5:29 AM Results for this (7) CDT procedure are in the results section. CBC (HEMOGRAM ONLY) Routine 11/06/2018 5:29 AM Results for this CDT procedure are in the results section. POCT-GLUCOSE METER Routine 11/06/2018 1:32 AM Results for this CDT procedure are in the results section. POCT-GLUCOSE METER Routine 11/05/2018 7:10 PM Results for this CDT procedure are in the results section. NV CEREBRAL 4 VESSEL Routine 11/05/2018 6:00 PM Results for this ANGIOGRAM CDT procedure are in the results section. PROCEDURE DONE 11/05/2018 2:00 PM Occlusion of right OUTSIDE OR CDT internal carotid artery Special Needs REQ:TF POCT-GLUCOSE METER Routine 11/05/2018 11:03 AM CDT POCT-GLUCOSE METER Routine 11/05/2018 6:35 AM CDT BASIC METABOLIC PANEL (7) Routine 11/05/2018 6:13 AM CDT PT/APTT Routine 11/05/2018 4:57 AM CDT CBC (HEMOGRAM ONLY) Routine 11/05/2018 4:57 AM CDT POCT-GLUCOSE METER Routine 11/04/2018 10:52 PM CDT ECHOCARDIOGRAM REPORT - SCAN 11/04/2018 9:10 PM CDT POCT-GLUCOSE METER Routine 11/04/2018 5:42 PM CDT POCT-GLUCOSE METER Routine 11/04/2018 12:35 PM CDT BASIC METABOLIC PANEL (7) Routine 11/04/2018 7:57 AM CDT CBC (HEMOGRAM ONLY) Routine 11/04/2018 5:15 AM CDT POCT-GLUCOSE METER Routine 11/03/2018 11:41 PM CDT TRANSFUSION SERVICE REPORT - 11/03/2018 5:51 PM CDT SCAN POCT-GLUCOSE METER Routine 11/03/2018 5:28 PM CDT 2D ECHO W/ DOPPLER Routine 11/03/2018 1:30 PM CDT Results for this (CW/PW/COLOR) procedure are in the results section. POCT-GLUCOSE METER Routine 11/03/2018 12:30 PM CDT POCT-GLUCOSE METER Routine 11/03/2018 5:49 AM CDT BASIC METABOLIC PANEL (7) Routine 11/03/2018 4:41 AM CDT CBC (HEMOGRAM ONLY) Routine 11/03/2018 4:41 AM CDT POCT-GLUCOSE METER Routine 11/02/2018 10:55 PM CDT PERIPHERAL VASCULAR REPORT - 11/02/2018 9:10 PM CDT SCAN POCT-GLUCOSE METER Routine 11/02/2018 5:25 PM CDT CAROTID DOPPLER BILATERAL Routine 11/02/2018 10:55 AM CDT POCT-GLUCOSE METER Routine 11/02/2018 8:39 AM CDT ABORH, MANUAL STAT 11/02/2018 6:39 AM CDT POCT-GLUCOSE METER Routine 11/02/2018 5:22 AM CDT TYPE AND SCREEN, AUTOMATED Routine 11/02/2018 5:21 AM CDT PROTHROMBIN TIME/INR Routine 11/02/2018 5:21 AM CDT BASIC METABOLIC PANEL (7) Routine 11/02/2018 5:21 AM CDT CBC (HEMOGRAM ONLY) Routine 11/02/2018 5:21 AM CDT B-TYPE NATRIURETIC FACTOR Routine 11/02/2018 5:21 AM CDT Results for this (BNP) procedure are in the results section. TROPONIN I Routine 11/02/2018 5:21 AM CDT POCT-GLUCOSE METER Routine 11/01/2018 11:11 PM CDT XR ABDOMEN 1 VIEW STAT 11/01/2018 5:46 PM CDT POCT-GLUCOSE METER Routine 11/01/2018 5:39 PM CDT ECG 12-LEAD Routine 11/01/2018 3:31 PM CDT POCT-GLUCOSE METER Routine 11/01/2018 3:04 PM CDT CBC W/PLT COUNT & AUTO Routine 11/01/2018 5:21 AM CDT Results for this DIFFERENTIAL procedure are in the results section. MAGNESIUM Routine 11/01/2018 5:21 AM CDT CBC W/PLT COUNT & AUTO Routine 11/01/2018 5:21 AM CDT Results for this DIFFERENTIAL procedure are in the results section. COMPREHENSIVE METABOLIC Routine 11/01/2018 5:21 AM CDT Results for this PANEL procedure are in the results section. CT BRAIN WITHOUT IV CONTRAST Routine 11/01/2018 4:44 AM CDT POCT-GLUCOSE METER Routine 10/31/2018 11:[address]/CTA CAROTID Routine 10/31/2018 6:[address]/CTA BRAIN Routine 10/31/2018 6:22 PM CDT TROPONIN I Routine 10/31/2018 5:28 AM CDT C-REACTIVE PROTEIN Routine 10/31/2018 5:28 AM CDT VITAMIN B12 Routine 10/31/2018 5:28 AM CDT RPR Routine 10/31/2018 4:23 AM CDT TSH/FREE T4 IF INDICATED Routine 10/31/2018 4:23 AM CDT PT/APTT Routine 10/31/2018 4:23 AM CDT (CELLAVISION MANUAL DIFF) Routine 10/31/2018 4:16 AM CDT CBC W/PLT COUNT & AUTO Routine 10/31/2018 4:16 AM CDT Results for this DIFFERENTIAL procedure are in the results section. HEMOGLOBIN A1C Routine 10/31/2018 4:16 AM CDT LIPID PANEL Routine 10/31/2018 4:16 AM CDT COMPREHENSIVE METABOLIC Routine 10/31/2018 4:16 AM CDT Results for this PANEL procedure are in the results section. CBC W/PLT COUNT & AUTO Routine 10/31/2018 4:16 AM CDT Results for this DIFFERENTIAL procedure are in the results section. after 04/15/2018 Results EKG-SCANNED (11/22/2018 11:40 AM CDT) Narrative Performed At CARDIAC CATH REPORT - SCAN (11/22/2018 11:40 AM CDT) Narrative Performed At RHYTHM STRIP - SCAN (11/22/2018 11:40 AM CDT) Narrative Performed At POC-Glucose meter (11/20/2018 5:09 PM CDT)Only the most recent of75 resultswithin the time period is included. POC-Glucose Meter 212 (H)Comment: TESTED AT 70 - 110 mg/dL [address] [id number] Specimen Blood Performing Organization Address City/State/Zipcode Phone Number [address] [phone] CENTER CBC (Hemogram only) (11/20/2018 4:53 AM CDT)Only the most recent of18 resultswithin the time period is included. WBC 10.6 (H) 3.5 - 10.5 K/L [facility] RBC 4.30 (L) 4.63 - 6.08 M/L [facility] Hemoglobin 12.0 (L) 13.7 - 17.5 GM/DL [facility] Hematocrit 37.9 (L) 40.1 - 51.0 % [facility] MCV 88.1 79.0 - 92.2 fL [facility] MCH 27.9 25.7 - 32.2 pg [facility] MCHC 31.7 (L) 32.3 - 36.5 GM/DL [facility] RDW 15.0 (H) 11.6 - 14.4 % [facility] Platelets 339 150 - 450 K/CU MM [facility] MPV 11.5 9.4 - 12.4 fL [facility] nRBC 0 0 - 0 /100 WBC [facility] Specimen Blood Performing Organization Address City/[facility]/Zipcode Phone Number [facility] [address] [place] [address] CENTER Basic Metabolic Panel (11/20/2018 4:53 AM CDT)Only the most recent of19 resultswithin the time period is included. Sodium 140 136 - 145 meq/L [facility] Potassium 4.3 3.5 - 5.1 meq/L [facility] Chloride 106 98 - 107 meq/L [facility] CO2 27 22 - 29 meq/L [facility] BUN 35 (H) 7 - 21 mg/dL [facility] Creatinine 0.95 0.57 - 1.25 mg/dL [facility] Glucose 200 (H) 70 - 105 mg/dL [facility] Calcium 9.2 8.4 - 10.2 mg/dL [facility] EGFR 78Comment: ESTIMATED GFR IS mL/min/1.73 sq m [facility] NOT ACCURATE CREATININE [facility] CENTER CLEARANCE IN PREDICTING GLOMERULAR FILTRATION RATE. ESTIMATED GFR IS NOT APPLICABLE FOR DIALYSIS PATIENTS. Specimen Blood Performing Organization Address City/[facility]/Zipcode Phone Number [facility] [address] [place] [address] [place] Urinalysis with Microscopic If Indicated (11/19/2018 1:26 PM CDT)Only the most recent of2 resultswithin the time period is included. Color, UA Yellow [facility] Clarity, UA Hazy [facility] Specific [place], UA 1.016 1.001 - 1.035 [facility] pH, UA 7.5 5.0 - 8.0 [facility] Protein, UA Negative Negative [facility] Glucose, UA Negative Negative [facility] Ketones, UA Negative Negative [facility] Bilirubin, UA Negative Negative [facility] Blood, UA Negative Negative [facility] Nitrite, UA Negative Negative [facility] Leukocytes, UA Negative Negative [facility] Urobilinogen, UA 0.2 0.2 - 1.0 mg/dL [facility] Specimen Source [facility] Specimen Urine Performing Organization Address City/State/Zipcode Phone Number [facility] [address] [place] [address] [phone] CENTER Urinalysis w/Microscopic + Reflex to Culture (11/18/2018 1:47 PM CDT) Color, UA Yellow [facility] Clarity, UA Clear [facility] Specific [place], UA 1.018 1.001 - 1.035 [facility] pH, UA 6.5 5.0 - 8.0 [facility] Protein, UA 10 mg/dL (A) Negative [facility] Glucose, UA Negative Negative [facility] Ketones, UA Negative Negative [facility] Bilirubin, UA Negative Negative [facility] Blood, UA Negative Negative [facility] Nitrite, UA Positive (A) Negative [facility] Leukocytes, UA Moderate (A) Negative [facility] Urobilinogen, UA 0.2 0.2 - 1.0 mg/dL [facility] RBC, UA <1 /HPF [facility] WBC, UA 15 /HPF [facility] Bacteria, UA Rare [facility] Mucus Rare [facility] Yeast [facility] Specimen Source [facility] Specimen Urine Performing Organization Address City/State/Zipcode Phone Number [facility] [address] [place] [phone] [place] Urine culture (11/18/2018 1:47 PM CDT) Result 10-19,000 col/mL Enterococcus [facility] species (A) [facility] [place] Specimen Urine Narrative Performed At <10,000 col/mL skin [place] [facility] Organism Antibiotic Method Susceptibility Enterococcus species Ampicillin <=2: Susceptible Enterococcus species Linezolid 2: Susceptible Enterococcus species Nitrofurantoin <=16: Susceptible Enterococcus species Tetracycline >=16: Resistant Enterococcus species Vancomycin 1: Susceptible Performing Organization Address City/[facility] Phone Number [address] [address] [phone] [place] ECG 12 lead (11/18/2018 4:57 AM CDT)Only the most recent of5 resultswithin the time period is included. Specimen Narrative Performed At Ventricular Rate 78 BPM GE MUSE Atrial Rate 78 BPM P-R Interval 142 ms QRS Duration 98 ms Q-T Interval 374 ms QTC Calculation(Bazett) 426 ms P [place] 60 degrees R [place] -6 degrees T [place] 75 degrees Normal sinus rhythm with sinus arrhythmia Left ventricular hypertrophy with repolarization abnormality Inferior infarct , age undetermined Anterior injury pattern Abnormal ECG Confirmed by MD Guzmán Roberto ([id number]) on 11/18/2018 12:08:15 PM Procedure Note Interface, External Ris In - 11/18/2018 12:08 PM CDT Ventricular Rate 78 BPM Atrial Rate 78 BPM P-R Interval 142 ms QRS Duration 98 ms Q-T Interval 374 ms QTC Calculation(Bazett) 426 ms P [place] 60 degrees R [place] -6 degrees T [place] 75 degrees Normal sinus rhythm with sinus arrhythmia Left ventricular hypertrophy with repolarization abnormality Inferior infarct , age undetermined Anterior injury pattern Abnormal ECG Confirmed by MD Arielle, Bill ([id number]) on 11/18/2018 12:08:15 PM Performing Organization Address City/[facility] Phone Number MUSE Troponin I (11/18/2018 4:42 AM CDT)Only the most recent of8 resultswithin the time period is included. Troponin I 1.66 (HH) 0.00 - 0.03 ng/mL [facility] Specimen Blood Narrative Performed At Troponin I (TnI) levels must be interpreted [facility] in the context of the presenting symptoms and the clinical findings. Elevated TnI levels indicate myocardial damage, but are not specific for ischemic heart disease. Elevated TnI levels are seen in patients with other cardiac conditions (including myocarditis and congestive heart failure), and slight TnI elevations occur in patients with other conditions, including sepsis, renal failure, acidosis, acute neurological disease, and persistent tachyarrhythmia. Performing Organization Address [facility] Phone Number [address] [address] [phone] [place] Urinalysis Microscopic Only (11/17/2018 10:48 PM CDT) RBC, UA 1 /HPF [facility] WBC, UA 5 /HPF [facility] Bacteria, UA Rare [facility] Mucus Rare [facility] Specimen Urine Performing Organization Address [facility] Phone Number [address] [address] [place] Blood Culture - Routine (Left Venipuncture) (11/17/2018 5:04 PM CDT)Only the most recent of2 resultswithin the time period is included. Result No growth in 5 days [facility] Specimen Blood Performing Organization Address [facility] Phone Number [place] [phone] [place] [address] [phone] [place] ECHOCARDIOGRAM REPORT - SCAN (11/13/2018 9:22 PM CDT) Narrative Performed At CT spine cervical without IV contrast (11/13/2018 3:14 PM CDT) Specimen Narrative Performed At FINAL REPORT [facility] EXAM: CERVICAL SPINE CT WITHOUT CONTRAST CLINICAL INDICATION:pain COMPARISON: None TECHNIQUE:Axially oriented 3.0 mm thick images were obtained through the entire cervical spine, without contrast.Sagittal and coronal reformations are also provided in osseous and soft tissue algorithms. DOSE REDUCTION: Dose modulation, iterative reconstruction, and/or weight-based adjustment of the mA/kV was utilized to reduce the radiation dose to as low as reasonably achievable. FINDINGS: There is no fracture or traumatic malalignment. The occipital condyles are intact and normally seated. The atlantodental interval is preserved. Mild degenerative changes are present in the endplates and facets. There is no critical canal or foraminal The narrowing. Prevertebral soft tissue structures are unremarkable. Visible portions of the aerodigestive tract are clear. The thyroid gland is unremarkable. There is no apical pneumothorax. Incidental note is made of overlapping right-sided carotid stents. Patency is not assessed in the current exam. IMPRESSION: Mild degenerative changes. No critical canal of foraminal stenosis. No fracture or traumatic malalignment. Signed: JR Emil, Keenan DUKES Report Verified Date/Time:11/13/2018 15:33:48 Reading Location: [facility] Radiology Reading Room Procedure Note Interface, External Ris In - 11/13/2018 3:36 PM CDT FINAL REPORT EXAM: CERVICAL SPINE CT WITHOUT CONTRAST CLINICAL INDICATION: pain COMPARISON: None TECHNIQUE: Axially oriented 3.0 mm thick images were obtained through the entire cervical spine, without contrast. Sagittal and coronal reformations are also provided in osseous and soft tissue algorithms. DOSE REDUCTION: Dose modulation, iterative reconstruction, and/or weight-based adjustment of the mA/kV was utilized to reduce the radiation dose to as low as reasonably achievable. FINDINGS: There is no fracture or traumatic malalignment. The occipital condyles are intact and normally seated. The atlantodental interval is preserved. Mild degenerative changes are present in the endplates and facets. There is no critical canal or foraminal The narrowing. Prevertebral soft tissue structures are unremarkable. Visible portions of the aerodigestive tract are clear. The thyroid gland is unremarkable. There is no apical pneumothorax. Incidental note is made of overlapping right-sided carotid stents. Patency is not assessed in the current exam. IMPRESSION: Mild degenerative changes. No critical canal of foraminal stenosis. No fracture or traumatic malalignment. Signed: JR Stein Robert MD Report Verified Date/Time: 11/13/2018 15:33:48 Reading Location: [facility] Radiology Reading Room Performing Organization Address City/State/Zipcode Phone Number [facility] CT brain without IV contrast (11/13/2018 3:13 PM CDT)Only the most recent of3 resultswithin the time period is included. Specimen Narrative Performed At FINAL REPORT [facility] CT head without contrast. Reason for exam: cva Comparisons: November 07, 2018 Discussion: Multiple axial CT images of the head are provided without contrast evaluated in brain and bone windows. This exam was performed according to our departmental dose optimization program which includes automated exposure control, adjustment of the mA and/or kV according to patient's size and/or use of iterative reconstructive technique. There is an evolving large right MCA territory infarct, containing increased amount of petechial hemorrhage. Regional mass effect causes sulcal effacement, but there is no midline shift. No hydrocephalus, or extra-axial collection. There is mild generalized brain volume loss. The visualized orbital contents, bones and surrounding soft tissues are unremarkable.Air fluid levels in the left sphenoid sinus. Tympanomastoid cavities are clear. Impressions: Evolving large volume right MCA territory infarct, with slightly increased amount of petechial hemorrhage. Signed: Bethany Parker MD Report Verified Date/Time:11/13/2018 15:22:34 Reading Location: [facility] B1 C013W Consult Reading Room Procedure Note Interface, External Ris In - 11/13/2018 3:24 PM CDT FINAL REPORT CT head without contrast. Reason for exam: cva Comparisons: November 07, 2018 Discussion: Multiple axial CT images of the head are provided without contrast evaluated in brain and bone windows. This exam was performed according to our departmental dose optimization program which includes automated exposure control, adjustment of the mA and/or kV according to patient's size and/or use of iterative reconstructive technique. There is an evolving large right MCA territory infarct, containing increased amount of petechial hemorrhage. Regional mass effect causes sulcal effacement, but there is no midline shift. No hydrocephalus, or extra-axial collection. There is mild generalized brain volume loss. The visualized orbital contents, bones and surrounding soft tissues are unremarkable. Air fluid levels in the left sphenoid sinus. Tympanomastoid cavities are clear. Impressions: Evolving large volume right MCA territory infarct, with slightly increased amount of petechial hemorrhage. Signed: Bethany Parker MD Report Verified Date/Time: 11/13/2018 15:22:34 Reading Location: [facility] C013W Consult Reading Room Performing Organization Address City/State/Zipcode Phone Number [facility] CBC with platelet count + automated diff (11/13/2018 7:21 AM CDT)Only the most recent of3 resultswithin the time period is included. WBC 13.4 (H) 3.5 - 10.5 K/L [facility] RBC 4.20 (L) 4.63 - 6.08 M/L [facility] Hemoglobin 11.9 (L) 13.7 - 17.5 GM/DL [facility] Hematocrit 36.1 (L) 40.1 - 51.0 % [facility] MCV 86.0 79.0 - 92.2 fL [facility] MCH 28.3 25.7 - 32.2 pg [facility] MCHC 33.0 32.3 - 36.5 GM/DL [facility] RDW 14.6 (H) 11.6 - 14.4 % [facility] Platelets 333 150 - 450 K/CU MM [facility] MPV 10.3 9.4 - 12.4 fL [facility] nRBC 0 0 - 0 /100 WBC [facility] % Neutros 80 % [facility] % Lymphs 11 % [facility] % Monos 6 % [facility] % Eos 3 % [facility] % Baso 0 % [facility] # Neutros 10.63 (H) 1.78 - 5.38 K/L [facility] # Lymphs 1.52 1.32 - 3.57 K/L [facility] # Monos 0.76 0.30 - 0.82 K/L [facility] # Eos 0.35 0.04 - 0.54 K/L [facility] # Baso 0.04 0.01 - 0.08 K/L [facility] Immature 1 0 - 1 % [facility] Specimen Blood Performing Organization Address City/State/Zipcode Phone Number [address] [address] CENTER Limited 2D Echocardiogram (11/12/2018 2:31 PM CDT) Ejection Fraction [facility]CHO [facility] Specimen Narrative Performed At Transthoracic Echocardiography Report (TTE) [facility] Demographics Patient Name MERCEDEZ FERNANDES Date of Study 11/12/2018 [id number] GenderMale Visit Number [id number] Unknown [id number] Room Number [id number] Number Date of Birth1950Referring Physician Beth Bhakta Age68 year(s)Order Planner BECKI Busch MD Physician Fellow [facility] Procedure Type of Study TTE procedure:2DECHO DOPPLER W/SALINE (Routine) Indications:Shortness of breath. Clinical History CAD DM HTN HGB 11.3 HCT 33.9 % Height: 71 inches Weight: 53.07 kg (117 lbs) BSA: 1.68 m^2 BMI: 16.32 kg/m^2 HR: 66 bpm BP: 114/56 mmHg Summary The left ventricle is chamber size (by vol index) is moderately enlarged. Mild concentric LV hypertrophy. The following segment(s) appear akinetic: basal-mid inferior and inferoseptum . The other segments are mildly hypokinetic. LVEF by Corral's method of disk assessment is moderately reduced (35-39%) . Grade 1 diastolic dysfunction (impaired relaxation and low-normal LA pressure). Unable to estimate peak systolic PA pressure; inadequate TR velocity signal. No significant pericardial effusion is visualized. Signature Findings Rhythm/BPSinus bradycardia during the exam. Left Ventricle The left ventricle is chamber size (by vol index) is moderately enlarged. Mild concentric LV hy pertrophy. The following segment(s) appear ak inetic: basal-mid inferior and inferoseptum . The ot her segments are mildly hypokinetic. LVEF by Si mpson's method of disk assessment is moderately re duced (35-39%) . Grade 1 diastolic dysfunction (i mpaired relaxation and low-normal LA pressure). Left AtriumLA size is hrtkekty-jq-hqgeowp enlarged . Right VentricleRV chamber size is normal . Global RV systolic fu nction is moderately reduced . Right Atrium RA cavity size is normal . Atrial SeptumNormal interatrial septum by available views. Aortic Valve Mild AoV cusp thickening. A trace of aortic re gurgitation. No evidence of aortic stenosis. Mitral Valve Mild MV leaflet thickening. Trace mitral re gurgitation. No evidence of mitral stenosis. Tricuspid ValveNormal TV structure and function. A trace of tr icuspid regurgitation. Unable to estimate peak sy stolic PA pressure; inadequate TR velocity si gnal. Pulmonic Valve Normal PV structure and function by limited views an d Doppler. AortaAortic root size (SInus of Valsalva diameter) is no rmal . PericardiumNo significant pericardial effusion is visualized. IVC/SVC/PA/PV/PleuralPulmonary vein flow is normal . The inferior vena ca va size is normal . Hepatic Vein pulsed Doppler pa ttern is normal . The estimated RA pressure by IV C dynamics 0-5mmHg . Chambers/Structures Left Atrium LA Dimension: 3.68 cmLA Area: 21.72 cm^2 LA Volume: 68.79 ml LA Vol. Index: 41 ml/m^2 Left Ventricle LVIDd: 5.81 cm LVIDs: 4.98 cm LV Septum Diastolic: 1.21 cm LV PW Diastolic: 1.1 cm LV FS: 14.3 % LVEDV Corral's:137.64 ml LVESV Corral's:84.43 mlLVEDVI: 82 ml/m^2 LVEF Corral's: 38.7 %LVESV I: 50 ml/m^2 LVOT Diameter: 2.02 cm Right Atrium RA Vol. (Sngl Plane): 50.83 ml Right Ventricle RV Diast Dim.: 3.96 cmRV Area Systolic: 7.59 cm^2 RV Area Diastolic: 14.88 cm^2 Aorta Ao Root S of Miroslava.: 3.15 cm Doppler/Quantitative Measurements Mitral Valve MV Peak E-Wave: 0.64 m/s MV Peak A-Wave: 0.62 m/s E/A Ratio: 1.02 Peak Gradient: 1.64 mmHg MV Vahe. Peak: Tissue Doppler E' Septal Velocity: 0.05 m/s E/E': 7.52 E' Lateral Velocity: 0.09 m/s LVOT Peak Velocity: 1.22 m/s Peak Gradient: 5.97 mmHg Mean Velocity: 0.78 m/s Mean Gradient: 2.82 mmHg LVOT Diameter: 2.02 cmLVOT VTI: 25.35 cm LVOT Area: 3.2 cm^2 LVOT SV:81.2 ml LVOT CO: 5.36 l/min LVOT CI: 3.19 l/min/m^2 Procedure Note Interface, External Ris In - 11/13/2018 12:44 PM CDT Transthoracic Echocardiography Report (TTE) Demographics Patient Name MERCEDEZ FERNANDES Date of Study 11/12/2018 Gender Male Visit Number [id number] Race Unknown Room Number [id number] Number Date of 1950 Referring Physician Beth Bhakta Age 68 year(s) Order Planner Donna Subramanian, [facility] Interpreting Michael Liao MD Physician Fellow [facility] Procedure Type of Study TTE procedure:2DECHO DOPPLER W/SALINE (Routine) Indications:Shortness of breath. Clinical History CAD DM HTN HGB 11.3 HCT 33.9 % Height: 71 inches Weight: 53.07 kg (117 lbs) BSA: 1.68 m^2 BMI: 16.32 kg/m^2 HR: 66 bpm BP: 114/56 mmHg Summary The left ventricle is chamber size (by vol index) is moderately enlarged. Mild concentric LV hypertrophy. The following segment(s) appear akinetic: basal-mid inferior and inferoseptum . The other segments are mildly hypokinetic. LVEF by Corral's method of disk assessment is moderately reduced (35-39%) . Grade 1 diastolic dysfunction (impaired relaxation and low-normal LA pressure). Unable to estimate peak systolic PA pressure; inadequate TR velocity signal. No significant pericardial effusion is visualized. Signature Findings Rhythm/BP Sinus bradycardia during the exam. Left Ventricle The left ventricle is chamber size (by vol index) is moderately enlarged. Mild concentric LV hypertrophy. The following segment(s) appear akinetic: basal-mid inferior and inferoseptum . The other segments are mildly hypokinetic. LVEF by Corral's method of disk assessment is moderately reduced (35-39%) . Grade 1 diastolic dysfunction (impaired relaxation and low-normal LA pressure). Left Atrium LA size is morzojcj-gq-lgarqhj enlarged . Right Ventricle RV chamber size is normal . Global RV systolic function is moderately reduced . Right Atrium RA cavity size is normal . Atrial Septum Normal interatrial septum by available views. Aortic Valve Mild AoV cusp thickening. A trace of aortic regurgitation. No evidence of aortic stenosis. Mitral Valve Mild MV leaflet thickening. Trace mitral regurgitation. No evidence of mitral stenosis. Tricuspid Valve Normal TV structure and function. A trace of tricuspid regurgitation. Unable to estimate peak systolic PA pressure; inadequate TR velocity signal. Pulmonic Valve Normal PV structure and function by limited views and Doppler. Aorta Aortic root size (SInus of Valsalva diameter) is normal . Pericardium No significant pericardial effusion is visualized. IVC/SVC/PA/PV/Pleural Pulmonary vein flow is normal . The inferior vena cava size is normal . Hepatic Vein pulsed Doppler pattern is normal . The estimated RA pressure by IVC dynamics 0-5mmHg . Chambers/Structures Left Atrium LA Dimension: 3.68 cm LA Area: 21.72 cm^2 LA Volume: 68.79 ml LA Vol. Index: 41 ml/m^2 Left Ventricle LVIDd: 5.81 cm LVIDs: 4.98 cm LV Septum Diastolic: 1.21 cm LV PW Diastolic: 1.1 cm LV FS: 14.3 % LVEDV Corral's:137.64 ml LVESV Corral's:84.43 ml LVEDVI: 82 ml/m^2 LVEF Corral's: 38.7 % LVESVI: 50 ml/m^2 LVOT Diameter: 2.02 cm Right Atrium RA Vol. (Sngl Plane): 50.83 ml Right Ventricle RV Diast Dim.: 3.96 cm RV Area Systolic: 7.59 cm^2 RV Area Diastolic: 14.88 cm^2 Aorta Ao Root S of Miroslava.: 3.15 cm Doppler/Quantitative Measurements Mitral Valve MV Peak E-Wave: 0.64 m/s MV Peak A-Wave: 0.62 m/s E/A Ratio: 1.02 Peak Gradient: 1.64 mmHg MV Vahe. Peak: Tissue Doppler E' Septal Velocity: 0.05 m/s E/E': 7.52 E' Lateral Velocity: 0.09 m/s LVOT Peak Velocity: 1.22 m/s Peak Gradient: 5.97 mmHg Mean Velocity: 0.78 m/s Mean Gradient: 2.82 mmHg LVOT Diameter: 2.02 cm LVOT VTI: 25.35 cm LVOT Area: 3.2 cm^2 LVOT SV:81.2 ml LVOT CO: 5.36 l/min LVOT CI: 3.19 l/min/m^2 Performing Organization Address City/State/Zipcode Phone Number [facility] [place] [facility] REPORT OF PROCEDURE - ENDOSCOPY URL (11/09/2018 3:51 PM CDT) Narrative Performed At [place] Carotid Artery Stent Placement w/Protection (11/07/2018 4:48 PM CDT) Specimen Narrative Performed At FINAL REPORT [facility] DATE OF PROCEDURE: 11/07/2018 SURGEON:Garrett Echevarria M.D. ANY COMMODITY BUYER: Lon Lopez MD PREOPERATIVE DIAGNOSIS: Right hemispheric stroke with severe right carotid artery stenosis POST OPERATIVE DIAGNOSIS: Right hemispheric stroke with severe right carotid artery stenosis OPERATION: 1) Cerebral Angiogram 2) right carotid stent IMPLANTS: Precise Pro Stent 8x40 Xact stent 8-6 x 40 ANESTHESIA:Moderate sedation ESTIMATED BLOOD LOSS: Less than 30 mL COMPLICATIONS: None INDICATIONS:The patient is a 67 years old Male who presented with a right MCA distribution ischemic stroke. He was identified on tomographic imaging to have severe right carotid stenosis. He was loaded on dual antiplatelet therapy and brought back for carotid stent placement. PROCEDURE AND ENDOVASCULAR INTERVENTION:Following explanation of the benefits, risks and alternatives for the procedure, informed consent was obtained from the patient.The risks including but not limited to stroke, intracranial hemorrhage, vascular injury to the cervical or femoral vessels and groin hematoma were discussed with the patient.A time-out was performed.Both groins were prepped in the usual sterile fashion using Chloraprep, and sterilely draped. A standard access was performed using a micropuncture kit on the right side to access the right common femoral artery. Serial dilation was performed and then a 9 [place] short sheath was placed in the right common femoral artery and placed on heparinized flush. Angiography was performed via the sheath confirmed satisfactory placement. A 5 [place] diagnostic glide catheter was then used to catheterize the right common carotid artery. The catheter was then advanced into the distal external carotid artery over a 035 Glidewire. This was then exchanged to a Amplatz stiff 035 wire. The diagnostic catheter was removed and Moma Proximal Cerebral Protection System was advanced over the Amplatz into the external carotid artery and spanning the bifurcation into the common carotid artery. The patient was heparinized. The associated balloon to been a preprepared with 50% contrast in the balloons. The distal balloon was positioned in the external carotid artery near the origin of the superior thyroid artery. The common carotid artery balloon was placed proximal to the bifurcation. The balloons were then inflated under active fluoroscopy. An additional dose of heparin was given. The stenotic segment of the internal carotid artery was identified using angiography. Under roadmap guidance, the lesion was crossed with a Synchro standard wire and an SL 10 microcatheter was used to advance across the plaque and positioned in the petrous segment of the internal carotid artery. The microwire was then exchanged for a balance middleweight wire and the microcatheter was removed. A standard full length exchange was performed to advance the stent over the balance middleweight wire and into the internal carotid artery across the plaque. A Xact 8-6 x 40mm stent was deployed using standard monorail technique. The stent spanned the distal cervical internal carotid artery to the proximal part of the stenotic lesion. Further coverage of the long stenotic segment was desired. Using the maintained wire, a second 8 x 40 precise Pro carotid stent was then deployed from the distal portion of the stenotic lesion to the common carotid artery. Next we inflated a 4 x 20Viatrac 14 Plus balloon within the stent to ensure full deployment and apposition. The patient had been pretreated with glycopyrrolate and the anesthesia team had atropine on standby during this maneuver. The waist of the stenotic segment was now spanned with double coverage of the stent and far more patent following angioplasty. Aspiration was then performed via the Moma system for a total of 30cc. This aspirate was filtered and checked for plaques. Plaque was found on the first two aspirations and the third was found be completely clear. The balloons were then deflated with the external balloon first and then the common carotid artery balloon. Post stenting, an angiogram of the cervical carotid was performed demonstrating mild stenosis on the order of 40% and satisfactory positioning of the stent. A repeat whole head angiogram demonstrated no evidence of branch occlusions or slow filling branches, and no other untoward findings. FINDINGS: RIGHT COMMON FEMORAL ARTERY (DSA - PA, LATERAL - ILIAC) The sheath enters above the femoral bifurcation. There is atherosclerotic disease of the common femoral artery below the level of sheath entry. 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 The dilation measures 2.9 cm. RIGHT COMMON CAROTID ARTERY (DSA - PA, LATERAL - CERVICAL) There is severe stenosis of the right internal carotid artery proximally as well as the dorsal wall of the distal common carotid artery. The irregular segment measures 3.5 cm across. The most stenotic portion results in a string sign, 1.4 cm distal to the bifurcation. Distal to that, there is wall irregularity before reaching a normal vessel caliber. The most stenotic segment is less than 1 mm and the normal distal diameter is 6.48 mm, measuring as 85% stenosis by NASCET technique. RIGHT COMMON CAROTID ARTERY (DSA - PA, LATERAL, OBLIQUE - HEAD) There is a small size posterior communicating artery. There is no anterograde filling through the anterior cerebral artery. No vascular malformation or arteriovenous shunting is noted. No stenosis or vasospasm is observed. No significant abnormalities are seen in the capillary and venous phases. The visualized portions of the external carotid artery and its branches are normal without evidence of ulceration or stenosis. There is preferential filling through the external carotid artery branches with robust opacification of the superficial temporal artery, occipital artery, middle meningeal artery, and others. There is no evidence of arteriovenous shunting. The venous phase is normal. Following stenting, there is improved anterograde flow through the right internal carotid artery with physiological filling of the distal vessels. The small caliber right A1 GUCCI is now opacified with opacification of the right distal GUCCI territory. SUPERVISION AND INTERPRETATION: Angiographic study demonstrates: 1. Severe right carotid stenosis, successfully treated with an 8 x 40mm Precise Pro carotid stent and8-6 x 40 Xact carotid stent No immediate technical or clinical complications. Signed: Garrett Echevarria MD Report Verified Date/Time:11/12/2018 14:42:01 Reading [facility] Procedure Note Interface, External Ris In - 11/12/2018 2:44 PM CDT FINAL REPORT DATE OF PROCEDURE: 11/07/2018 SURGEON: Garrett Echevarria M.D. ANY COMMODITY BUYER: Lon Lopez MD PREOPERATIVE DIAGNOSIS: Right hemispheric stroke with severe right carotid artery stenosis POST OPERATIVE DIAGNOSIS: Right hemispheric stroke with severe right carotid artery stenosis OPERATION: 1) Cerebral Angiogram 2) right carotid stent IMPLANTS: Precise Pro Stent 8x40 Xact stent 8-6 x 40 ANESTHESIA: Moderate sedation ESTIMATED BLOOD LOSS: Less than 30 mL COMPLICATIONS: None INDICATIONS: The patient is a 67 years old Male who presented with a right MCA distribution ischemic stroke. He was identified on tomographic imaging to have severe right carotid stenosis. He was loaded on dual antiplatelet therapy and brought back for carotid stent placement. PROCEDURE AND ENDOVASCULAR INTERVENTION: Following explanation of the benefits, risks and alternatives for the procedure, informed consent was obtained from the patient. The risks including but not limited to stroke, intracranial hemorrhage, vascular injury to the cervical or femoral vessels and groin hematoma were discussed with the patient. A time-out was performed. Both groins were prepped in the usual sterile fashion using Chloraprep, and sterilely draped. A standard access was performed using a micropuncture kit on the right side to access the right common femoral artery. Serial dilation was performed and then a 9 [place] short sheath was placed in the right common femoral artery and placed on heparinized flush. Angiography was performed via the sheath confirmed satisfactory placement. A 5 [place] diagnostic glide catheter was then used to catheterize the right common carotid artery. The catheter was then advanced into the distal external carotid artery over a 035 Glidewire. This was then exchanged to a Amplatz stiff 035 wire. The diagnostic catheter was removed and Moma Proximal Cerebral Protection System was advanced over the Amplatz into the external carotid artery and spanning the bifurcation into the common carotid artery. The patient was heparinized. The associated balloon to been a preprepared with 50% contrast in the balloons. The distal balloon was positioned in the external carotid artery near the origin of the superior thyroid artery. The common carotid artery balloon was placed proximal to the bifurcation. The balloons were then inflated under active fluoroscopy. An additional dose of heparin was given. The stenotic segment of the internal carotid artery was identified using angiography. Under roadmap guidance, the lesion was crossed with a Synchro standard wire and an SL 10 microcatheter was used to advance across the plaque and positioned in the petrous segment of the internal carotid artery. The microwire was then exchanged for a balance middleweight wire and the microcatheter was removed. A standard full length exchange was performed to advance the stent over the balance middleweight wire and into the internal carotid artery across the plaque. A Xact 8-6 x 40mm stent was deployed using standard monorail technique. The stent spanned the distal cervical internal carotid artery to the proximal part of the stenotic lesion. Further coverage of the long stenotic segment was desired. Using the maintained wire, a second 8 x 40 precise Pro carotid stent was then deployed from the distal portion of the stenotic lesion to the common carotid artery. Next we inflated a 4 x 20 Viatrac 14 Plus balloon within the stent to ensure full deployment and apposition. The patient had been pretreated with glycopyrrolate and the anesthesia team had atropine on standby during this maneuver. The waist of the stenotic segment was now spanned with double coverage of the stent and far more patent following angioplasty. Aspiration was then performed via the Moma system for a total of 30cc. This aspirate was filtered and checked for plaques. Plaque was found on the first two aspirations and the third was found be completely clear. The balloons were then deflated with the external balloon first and then the common carotid artery balloon. Post stenting, an angiogram of the cervical carotid was performed demonstrating mild stenosis on the order of 40% and satisfactory positioning of the stent. A repeat whole head angiogram demonstrated no evidence of branch occlusions or slow filling branches, and no other untoward findings. FINDINGS: RIGHT COMMON FEMORAL ARTERY (DSA - PA, LATERAL - ILIAC) The sheath enters above the femoral bifurcation. There is atherosclerotic disease of the common femoral artery below the level of sheath entry. 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 The dilation measures 2.9 cm. RIGHT COMMON CAROTID ARTERY (DSA - PA, LATERAL - CERVICAL) There is severe stenosis of the right internal carotid artery proximally as well as the dorsal wall of the distal common carotid artery. The irregular segment measures 3.5 cm across. The most stenotic portion results in a string sign, 1.4 cm distal to the bifurcation. Distal to that, there is wall irregularity before reaching a normal vessel caliber. The most stenotic segment is less than 1 mm and the normal distal diameter is 6.48 mm, measuring as 85% stenosis by NASCET technique. RIGHT COMMON CAROTID ARTERY (DSA - PA, LATERAL, OBLIQUE - HEAD) There is a small size posterior communicating artery. There is no anterograde filling through the anterior cerebral artery. No vascular malformation or arteriovenous shunting is noted. No stenosis or vasospasm is observed. No significant abnormalities are seen in the capillary and venous phases. The visualized portions of the external carotid artery and its branches are normal without evidence of ulceration or stenosis. There is preferential filling through the external carotid artery branches with robust opacification of the superficial temporal artery, occipital artery, middle meningeal artery, and others. There is no evidence of arteriovenous shunting. The venous phase is normal. Following stenting, there is improved anterograde flow through the right internal carotid artery with physiological filling of the distal vessels. The small caliber right A1 GUCCI is now opacified with opacification of the right distal GUCCI territory. SUPERVISION AND INTERPRETATION: Angiographic study demonstrates: 1. Severe right carotid stenosis, successfully treated with an 8 x 40mm Precise Pro carotid stent and 8-6 x 40 Xact carotid stent No immediate technical or clinical complications. Signed: Garrett Echevarria MD Report Verified Date/Time: 11/12/2018 14:42:01 Reading Location: [facility] Reading Room Performing Organization Address City/[facility]/Zipcode Phone Number GE RIS POC ACTIVATED CLOTTING TIME (11/07/2018 3:51 PM CDT) Activated Clotting Time 252Comment: TESTED AT sec [address] [address] Specimen Blood Performing Organization Address City/[facility]/Zipcode Phone Number [address] [address] CENTER POCT-P2Y12 PLATELET AGGREGATION (11/07/2018 12:09 PM CDT)Only the most recent of2 resultswithin the time period is included. POC-P2Y12 Plt Agg 83 PRU [facility] Specimen Blood Narrative Performed At RANGE INFORMATION: PRU reference range is [facility] 194-418. Post Drug Results: Lower PRU levels are associated with expected antiplatelet effect. Values may be below the stated reference range above. The post-drug PRU values reported in the VerifyNow P2Y12 package insert are [phone]. Performing Organization Address City/[facility]/Zipcode Phone Number [facility] [address] [place], [place] [id number] [phone] CENTER XR abdomen / KUB 1 view (11/06/2018 6:45 PM CDT)Only the most recent of2 resultswithin the time period is included. Specimen Narrative Performed At FINAL REPORT [facility] EXAMINATION: SUPINE ABDOMEN CLINICAL INDICATION:FEEDING TUBE PLACEMENT IMPRESSION: Tip of the feeding tube projects over the right upper abdomen in the region of the gastric pylorus. Bowel gas pattern is overall nonspecific. Moderate to large volume of inspissated stool is noted in the colon which may reflect a component of dysmotility with constipation. Signed: Shruthi Neumann MD Report Verified Date/Time:11/06/2018 19:42:40 Reading Location: [address] Reading Room Procedure Note Interface, External Ris In - 11/06/2018 7:44 PM CDT FINAL REPORT EXAMINATION: SUPINE ABDOMEN CLINICAL INDICATION: FEEDING TUBE PLACEMENT IMPRESSION: Tip of the feeding tube projects over the right upper abdomen in the region of the gastric pylorus. Bowel gas pattern is overall nonspecific. Moderate to large volume of inspissated stool is noted in the colon which may reflect a component of dysmotility with constipation. Signed: Shruthi Neumann MD Report Verified Date/Time: 11/06/2018 19:42:40 Reading Location: [address] Reading Room Performing Organization Address City/[facility]/Zipcode Phone Number [facility] [place] esoph swallow funct with cine video (11/06/2018 1:35 PM CDT) Specimen Narrative Performed At FINAL REPORT [facility] Modified barium swallow with speech pathology History: dysphagia Technique: Modified barium swallow was performed in conjunction with speech pathology. Examination utilized various textures of barium. Fluoroscopic observation was performed during swallowing. Total fluoroscopy time: 4.9 minutes Total number of films: 1 IMPRESSION: There is laryngeal penetration with thin and nectar thick liquid barium. There is one episode of laryngeal aspiration with honey thick barium. Please refer to the speech pathology report for further details. Signed: Everton López MD Report Verified Date/Time:11/06/2018 14:10:54 Reading Location: [address] Ortho Consult Reading Room Procedure Note Interface, External Ris In - 11/06/2018 2:17 PM CDT FINAL REPORT Modified barium swallow with speech pathology History: dysphagia Technique: Modified barium swallow was performed in conjunction with speech pathology. Examination utilized various textures of barium. Fluoroscopic observation was performed during swallowing. Total fluoroscopy time: 4.9 minutes Total number of films: 1 IMPRESSION: There is laryngeal penetration with thin and nectar thick liquid barium. There is one episode of laryngeal aspiration with honey thick barium. Please refer to the speech pathology report for further details. Signed: Everton López MD Report Verified Date/Time: 11/06/2018 14:10:54 Reading Location: [address] Consult Reading Room Performing Organization Address City/State/Zipcode Phone Number [facility] [place] cerebral 4 vessel angiogram (11/05/2018 6:00 PM CDT) Specimen Narrative Performed At FINAL REPORT [facility] DATE OF PROCEDURE: November 05, 2018 SURGEON: Garrett Echevarria M.D. ANY COMMODITY BUYER:Lon Lopez MD PREOPERATIVE DIAGNOSIS: Right carotid stenosis POST OPERATIVE DIAGNOSIS: Severe right carotid stenosis PROCEDURE:Cerebral Angiogram ANESTHESIA: MAC ESTIMATED BLOOD LOSS: Minimal COMPLICATIONS: None INDICATIONS: The patient is a 67 years old Male who presented with a right MCA distribution ischemic stroke. He was identified on tomographic imaging to have severe right carotid stenosis versus occlusion. He was referred for diagnostic angiogram for further evaluation. PROCEDURE: Following explanation of the benefits, risks and alternatives for the procedure, informed consent was obtained from the patient. The risks including but not limited to stroke, intracranial hemorrhage, vascular injury to the cervical or femoral vessels and groin hematoma were discussed with the patient. A time-out was performed. Both groins were prepped in the usual sterile fashion using Chloraprep, and sterilely draped. The skin over the right femoral artery was anesthetized with 1% lidocaine. A single wall puncture of the right femoral artery was performed using a micropuncture set and dilator and a 5-Fr short sheath was inserted into the right common femoral artery and maintained on heparinized flush. Using coaxial technique, a 5-Fr Angled glide catheter was advanced into the descending aorta, back-bled, and flushed in the usual fashion. Using coaxial technique, the catheter was advanced into the aortic arch, and with the aid of the roadmapping, digital fluoroscopy, and careful guidewire manipulation the right and left common carotid arteries, and the left vertebral artery were catheterized. Upon each successive selective catheterization, digital subtraction angiography using the appropriate rate and volume of contrast in multiple projections was performed. Additional diagnostic catheters included use of a VivaRay 2 catheter. 3-dimensional angiogram was performed and processed on an independent workstation. These images were reviewed by Dr. Echevarria separately. The catheter was removed. The femoral sheath was removed and hemostasis was achieved with a 6-[place] AngioSeal closure device. The patient tolerated the procedure well and was taken to recovery in stable condition. FINDINGS: RIGHT COMMON FEMORAL ARTERY (DSA - PA, LATERAL - ILIAC) The sheath enters above the femoral bifurcation. There is atherosclerotic disease of the common femoral artery below the level of sheath entry. 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 The dilation measures 2.9 cm. LEFT VERTEBRAL ARTERY (DSA - PA, LATERAL - HEAD) The left vertebral artery is patent without significant stenotic lesion. There is a stenotic lesion of the mid basilar artery at the level of the anterior inferior cerebellar artery. The stenotic segment measures 3 mm across versus 4.38 mm for the normal distal basilar artery. This measures 30% by WASID criteria. 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 There is contrast reflux into the right vertebral artery with opacification of the right posterior inferior cerebellar artery. No aneurysms, vascular malformations, or stenotic lesions are noted in the vertebrobasilar system. The venous phase shows patent bilateral transverse and sigmoid sinuses. RIGHT COMMON CAROTID ARTERY (DSA - PA, LATERAL - CERVICAL) There is severe stenosis of the right internal carotid artery proximally as well as the dorsal wall of the distal common carotid artery. The irregular segment measures 3.5 cm across. The most stenotic portion results in a string sign, 1.4 cm distal to the bifurcation. Distal to that, there is wall irregularity before reaching a normal vessel caliber. The most stenotic segment is less than 1 mm and the normal distal diameter is 6.48 mm, measuring as 85% stenosis by NASCET technique. RIGHT COMMON CAROTID ARTERY (DSA - PA, LATERAL, OBLIQUE - HEAD) There is a small size posterior communicating artery. There is no anterograde filling through the anterior cerebral artery. No vascular malformation or arteriovenous shunting is noted. No stenosis or vasospasm is observed. No significant abnormalities are seen in the capillary and venous phases. The visualized portions of the external carotid artery and its branches are normal without evidence of ulceration or stenosis. There is preferential filling through the external carotid artery branches with robust opacification of the superficial temporal artery, occipital artery, middle meningeal artery, and others. There is no evidence of arteriovenous shunting. The venous phase is normal. LEFT COMMON CAROTID ARTERY (DSA - PA, LATERAL - CERVICAL) The origins of the left internal and external carotid arteries are widely patent without evidence of ulceration or stenosis. There is a small plaque on the anterior wall of the internal carotid artery 1 cm distal to the bifurcation. LEFT COMMON CAROTID ARTERY (DSA - PA, LATERAL, OBLIQUE - HEAD) There is spontaneous crossfilling across the anterior communicating artery with opacification of the distal right anterior cerebral artery territory. Left side supplies the majority of the right GUCCI territory and cross fills into the MCA as well. There is some antegrade flow with washout of the MCA territory. There is a large size posterior communicating artery. No vascular malformations, stenosis, or vasospasm is observed. No significant abnormalities are seen in the capillary and venous phases. The venous phase demonstrates patent transverse and sigmoid sinuses. The visualized portions of the external carotid artery and its branches are normal without evidence of ulceration or stenosis. There is no evidence of arteriovenous shunting. The venous phase is normal. SUPERVISION AND INTERPRETATION: Angiographic study demonstrates: 1. Severe right carotid stenosis, 85% 2. Collateral circulation to the right internal carotid artery via left ICA and anterior commuting artery. No immediate technical or clinical complications. Signed: Garrett Echevarria MD Report Verified Date/Time:11/12/2018 14:41:58 Reading Location: [facility] B1 [id number] Neuro Angio Reading Room Procedure Note Interface, External Ris In - 11/12/2018 2:44 PM CDT FINAL REPORT DATE OF PROCEDURE: November 05, 2018 SURGEON: Garrett Echevarria M.D. ANY COMMODITY BUYER: Lon Lopez MD PREOPERATIVE DIAGNOSIS: Right carotid stenosis POST OPERATIVE DIAGNOSIS: Severe right carotid stenosis PROCEDURE: Cerebral Angiogram ANESTHESIA: MAC ESTIMATED BLOOD LOSS: Minimal COMPLICATIONS: None INDICATIONS: The patient is a 67 years old Male who presented with a right MCA distribution ischemic stroke. He was identified on tomographic imaging to have severe right carotid stenosis versus occlusion. He was referred for diagnostic angiogram for further evaluation. PROCEDURE: Following explanation of the benefits, risks and alternatives for the procedure, informed consent was obtained from the patient. The risks including but not limited to stroke, intracranial hemorrhage, vascular injury to the cervical or femoral vessels and groin hematoma were discussed with the patient. A time-out was performed. Both groins were prepped in the usual sterile fashion using Chloraprep, and sterilely draped. The skin over the right femoral artery was anesthetized with 1% lidocaine. A single wall puncture of the right femoral artery was performed using a micropuncture set and dilator and a 5-Fr short sheath was inserted into the right common femoral artery and maintained on heparinized flush. Using coaxial technique, a 5-Fr Angled glide catheter was advanced into the descending aorta, back-bled, and flushed in the usual fashion. Using coaxial technique, the catheter was advanced into the aortic arch, and with the aid of the roadmapping, digital fluoroscopy, and careful guidewire manipulation the right and left common carotid arteries, and the left vertebral artery were catheterized. Upon each successive selective catheterization, digital subtraction angiography using the appropriate rate and volume of contrast in multiple projections was performed. Additional diagnostic catheters included use of a Schwarz 2 catheter. 3-dimensional angiogram was performed and processed on an independent workstation. These images were reviewed by Dr. Echevarria separately. The catheter was removed. The femoral sheath was removed and hemostasis was achieved with a 6-[place] AngioSeal closure device. The patient tolerated the procedure well and was taken to recovery in stable condition. FINDINGS: RIGHT COMMON FEMORAL ARTERY (DSA - PA, LATERAL - ILIAC) The sheath enters above the femoral bifurcation. There is atherosclerotic disease of the common femoral artery below the level of sheath entry. 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 The dilation measures 2.9 cm. LEFT VERTEBRAL ARTERY (DSA - PA, LATERAL - HEAD) The left vertebral artery is patent without significant stenotic lesion. There is a stenotic lesion of the mid basilar artery at the level of the anterior inferior cerebellar artery. The stenotic segment measures 3 mm across versus 4.38 mm for the normal distal basilar artery. This measures 30% by WASID criteria. 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 There is contrast reflux into the right vertebral artery with opacification of the right posterior inferior cerebellar artery. No aneurysms, vascular malformations, or stenotic lesions are noted in the vertebrobasilar system. The venous phase shows patent bilateral transverse and sigmoid sinuses. RIGHT COMMON CAROTID ARTERY (DSA - PA, LATERAL - CERVICAL) There is severe stenosis of the right internal carotid artery proximally as well as the dorsal wall of the distal common carotid artery. The irregular segment measures 3.5 cm across. The most stenotic portion results in a string sign, 1.4 cm distal to the bifurcation. Distal to that, there is wall irregularity before reaching a normal vessel caliber. The most stenotic segment is less than 1 mm and the normal distal diameter is 6.48 mm, measuring as 85% stenosis by NASCET technique. RIGHT COMMON CAROTID ARTERY (DSA - PA, LATERAL, OBLIQUE - HEAD) There is a small size posterior communicating artery. There is no anterograde filling through the anterior cerebral artery. No vascular malformation or arteriovenous shunting is noted. No stenosis or vasospasm is observed. No significant abnormalities are seen in the capillary and venous phases. The visualized portions of the external carotid artery and its branches are normal without evidence of ulceration or stenosis. There is preferential filling through the external carotid artery branches with robust opacification of the superficial temporal artery, occipital artery, middle meningeal artery, and others. There is no evidence of arteriovenous shunting. The venous phase is normal. LEFT COMMON CAROTID ARTERY (DSA - PA, LATERAL - CERVICAL) The origins of the left internal and external carotid arteries are widely patent without evidence of ulceration or stenosis. There is a small plaque on the anterior wall of the internal carotid artery 1 cm distal to the bifurcation. LEFT COMMON CAROTID ARTERY (DSA - PA, LATERAL, OBLIQUE - HEAD) There is spontaneous crossfilling across the anterior communicating artery with opacification of the distal right anterior cerebral artery territory. Left side supplies the majority of the right GUCCI territory and cross fills into the MCA as well. There is some antegrade flow with washout of the MCA territory. There is a large size posterior communicating artery. No vascular malformations, stenosis, or vasospasm is observed. No significant abnormalities are seen in the capillary and venous phases. The venous phase demonstrates patent transverse and sigmoid sinuses. The visualized portions of the external carotid artery and its branches are normal without evidence of ulceration or stenosis. There is no evidence of arteriovenous shunting. The venous phase is normal. SUPERVISION AND INTERPRETATION: Angiographic study demonstrates: 1. Severe right carotid stenosis, 85% 2. Collateral circulation to the right internal carotid artery via left ICA and anterior commuting artery. No immediate technical or clinical complications. Signed: Garrett Echevarria MD Report Verified Date/Time: 11/12/2018 14:41:58 Reading Location: [facility] Y02 Neuro Angio Reading Room Performing Organization Address City/[facility] Phone Number GE RIS PT/aPTT (11/05/2018 4:57 AM CDT)Only the most recent of2 resultswithin the time period is included. Protime 12.9 11.7 - 14.7 seconds [facility] INR 1.0 <=5.9 [facility] PTT 35.4 22.5 - 36.0 seconds [facility] Specimen Blood Narrative Performed At RECOMMENDED COUMADIN/WARFARIN INR THERAPY [facility] RANGES STANDARD DOSE: 2.0 - 3.0 Includes: PROPHYLAXIS for venous thrombosis, systemic embolization; TREATMENT for venous thrombosis and/or pulmonary embolus. HIGH RISK: Target INR is 2.5-3.5 for patients with mechanical heart valves. Performing Organization Address [facility]/Zipcode Phone Number [facility] [address] [place] [address] CENTER ECHOCARDIOGRAM REPORT - SCAN (11/04/2018 9:10 PM CDT) Narrative Performed At TRANSFUSION SERVICE REPORT - SCAN (11/03/2018 5:51 PM CDT) Narrative Performed At 2D Echo W/Doppler(CW/PW/Color) (11/03/2018 1:30 PM CDT) Ejection Fraction [facility] ECHO [facility]ART[facility] Specimen Narrative Performed At Transthoracic Echocardiography Report (TTE) [facility]ART[facility] Demographics Patient Name MERECDEZ FERNANDES Date of Study 11/03/2018 [id number] GenderMale Visit Number [id number] Unknown [id number] Room Number 2251 Number Date of Birth1950Referring Physician SUHAIL SMITH Age67 year(s)Order Planner Rhonda Rehman [facility] AnalystIzoAbrahan Mcfadden Physician Procedure Type of Study TTE procedure:2DECHO W DOPPLER(CW/PW/COLOR) (Routine) Indications:Suspected cardiac source of emboli. Clinical History CAD;DM;HTN. HGB 12.1 HCT 37 % Contrast Medium: Bubble Study. Height: 71 inches Weight: 53.07 kg (117 lbs) BSA: 1.68 m^2 BMI: 16.32 kg/m^2 HR: 74 bpm BP: 139/67 mmHg Summary The left ventricle is chamber size (by PSLAX dimension) is normal (male - LVIDd 4.2-5.8cm) . Normal LV wall thickness. The following segment(s) are akinetic: basal -mid inferior, basal inferior septum. The other segments are mildly hypokinetic. Global LV systolic function mildly reduced . LVEF by Corral's method of disk assessment is mildly reduced (40-44%) . The LVEF was measured using Corral's bi-plane method of disk . Degree of diastolic dysfunction (LAP assessment) is inconclusive due to arrhythmia . Normal (cardiac index 2-3 L/min/m2) cardiac output state at rest is noted. No significant pericardial effusion is visualized. The estimated RA pressure by IVC dynamics 5mmHg . Trace TR. Unable to estimate peak systolic PA pressure; inadequate TR velocity signal. IV saline contrast injection was negative for a PFO (patent foramen ovale) at rest and post Valsalva . Previous Study No prior exam available for comparison. Signature Findings Rhythm/BPIrregular rhythm during the exam. Left Ventricle The left ventricle is chamber size (by PSLAX di mension) is normal (male - LVIDd 4.2-5.8cm) . No rmal LV wall thickness. The following segment(s) ar e akinetic: basal -mid inferior, basal inferior se ptum. The other segments are mildly hypokinetic. Gl obal LV systolic function mildly reduced . LVEF by Corral's method of disk assessment is mildly re duced (40-44%) . The LVEF was measured using Si mpson's bi-plane method of disk . Degree of di astolic dysfunction (LAP assessment) is in conclusive due to arrhythmia . Normal (cardiac in dex 2-3 L/min/m2) cardiac output state at rest is no kristyn. Left AtriumLA size is mildly enlarged (35-41 ml/m2) . Right VentricleRV chamber size is normal . Gl obal RV systolic function is low normal . Right Atrium RA cavity size is normal . Atrial SeptumIV saline contrast injection was negative for a PFO (p atent foramen ovale) at rest and post Valsalva . Aortic Valve Mild AoV cusp thickening. A trace of aortic regurgitation. Mitral Valve Mild MV leaflet thickening. Tr latoya mitral regurgitation. Tricuspid ValveTrace TR. Unable to estimate peak systolic PA pr essure; inadequate TR velocity signal. Pulmonic Valve PV is not well visualized; function appears normal by Doppler visualized. AortaAortic root size (SInus of Valsalva diameter) is no rmal . PericardiumNo significant pericardial effusion is visualized. IVC/SVC/PA/PV/PleuralThe estimated RA pressure by IVC dynamics 5mmHg . Chambers/Structures Left Atrium LA Volume: 61.6 mlLA Area: 19.99 cm^2 LA Vol. Index: 37 ml/m^2 Left Ventricle LVIDd: 5.14 cm LV Septum Diastolic: 0.95 cm LV PW Diastolic: 0.88 cm LVEDV Corral's:145.67 ml LVESV Corral's:83.24 ml LVEF Corral's: 42.9 %LVEDV I: 87 ml/m^2 LVESVI: 50 ml/m^2 LVOT Diameter: 2.09 cm Right Atrium RA Vol. (Sngl Plane): 29.63 ml Right Ventricle TAPSE: 1.52 cm Aorta Ao Root S of Miroslava.: 3.17 cm Doppler/Quantitative Measurements Mitral Valve MV Peak E-Wave: 0.86 m/s MV Peak A-Wave: 0.92 m/s E/A Ratio: 0.93 Peak Gradient: 2.95 mmHg Deceleration Time: 178.6 msec MV Vahe. Peak: Aortic Valve Peak Velocity: 1.49 m/sMean Velocity: 1.07 m/s Peak Gradient: 8.93 mmHg Mean Gradient: 5.11 mmHg AV Area (continuity): 2.16 cm^2 AV VTI: 28.27 cm AV DVI: 0.63 LVOT Peak Velocity: 1.04 m/s Peak Gradient: 4.31 mmHg Mean Velocity: 0.67 m/s Mean Gradient: 2.16 mmHg LVOT Diameter: 2.09 cmLVOT VTI: 17.77 cm LVOT Area: 3.43 cm^2LVOT SV:60.93 ml LVOT CO: 4.51 l/min LVOT CI: 2.68 l/min/m^2 Procedure Note Interface, External Ris In - 11/04/2018 6:57 AM CDT Transthoracic Echocardiography Report (TTE) Demographics Patient Name MERCEDEZ FERNANDES Date of Study 11/03/2018 Gender Male Visit Number [id number] Race Unknown Room Number 2251 Number Date of 1950 Referring Physician SUHAIL SMITH Age 67 year(s) Order Planner Rhonda Rehman [facility] Medical Services Coordinator Mike Vargas Interpreting Abrahan Lakhani Physician Procedure Type of Study TTE procedure:2DECHO W DOPPLER(CW/PW/COLOR) (Routine) Indications:Suspected cardiac source of emboli. Clinical History CAD;DM;HTN. HGB 12.1 HCT 37 % Contrast Medium: Bubble Study. Height: 71 inches Weight: 53.07 kg (117 lbs) BSA: 1.68 m^2 BMI: 16.32 kg/m^2 HR: 74 bpm BP: 139/67 mmHg Summary The left ventricle is chamber size (by PSLAX dimension) is normal (male - LVIDd 4.2-5.8cm) . Normal LV wall thickness. The following segment(s) are akinetic: basal -mid inferior, basal inferior septum. The other segments are mildly hypokinetic. Global LV systolic function mildly reduced . LVEF by Corral's method of disk assessment is mildly reduced (40-44%) . The LVEF was measured using Corral's bi-plane method of disk . Degree of diastolic dysfunction (LAP assessment) is inconclusive due to arrhythmia . Normal (cardiac index 2-3 L/min/m2) cardiac output state at rest is noted. No significant pericardial effusion is visualized. The estimated RA pressure by IVC dynamics 5mmHg . Trace TR. Unable to estimate peak systolic PA pressure; inadequate TR velocity signal. IV saline contrast injection was negative for a PFO (patent foramen ovale) at rest and post Valsalva . Previous Study No prior exam available for comparison. Signature Findings Rhythm/BP Irregular rhythm during the exam. Left Ventricle The left ventricle is chamber size (by PSLAX dimension) is normal (male - LVIDd 4.2-5.8cm) . Normal LV wall thickness. The following segment(s) are akinetic: basal -mid inferior, basal inferior septum. The other segments are mildly hypokinetic. Global LV systolic function mildly reduced . LVEF by Corral's method of disk assessment is mildly reduced (40-44%) . The LVEF was measured using Corral's bi-plane method of disk . Degree of diastolic dysfunction (LAP assessment) is inconclusive due to arrhythmia . Normal (cardiac index 2-3 L/min/m2) cardiac output state at rest is noted. Left Atrium LA size is mildly enlarged (35-41 ml/m2) . Right Ventricle RV chamber size is normal . Global RV systolic function is low normal . Right Atrium RA cavity size is normal . Atrial Septum IV saline contrast injection was negative for a PFO (patent foramen ovale) at rest and post Valsalva . Aortic Valve Mild AoV cusp thickening. A trace of aortic regurgitation. Mitral Valve Mild MV leaflet thickening. Trace mitral regurgitation. Tricuspid Valve Trace TR. Unable to estimate peak systolic PA pressure; inadequate TR velocity signal. Pulmonic Valve PV is not well visualized; function appears normal by Doppler visualized. Aorta Aortic root size (SInus of Valsalva diameter) is normal . Pericardium No significant pericardial effusion is visualized. IVC/SVC/PA/PV/Pleural The estimated RA pressure by IVC dynamics 5mmHg . Chambers/Structures Left Atrium LA Volume: 61.6 ml LA Area: 19.99 cm^2 LA Vol. Index: 37 ml/m^2 Left Ventricle LVIDd: 5.14 cm LV Septum Diastolic: 0.95 cm LV PW Diastolic: 0.88 cm LVEDV Corral's:145.67 ml LVESV Corral's:83.24 ml LVEF Corral's: 42.9 % LVEDVI: 87 ml/m^2 LVESVI: 50 ml/m^2 LVOT Diameter: 2.09 cm Right Atrium RA Vol. (Sngl Plane): 29.63 ml Right Ventricle TAPSE: 1.52 cm Aorta Ao Root S of Miroslava.: 3.17 cm Doppler/Quantitative Measurements Mitral Valve MV Peak E-Wave: 0.86 m/s MV Peak A-Wave: 0.92 m/s E/A Ratio: 0.93 Peak Gradient: 2.95 mmHg Deceleration Time: 178.6 msec MV Vahe. Peak: Aortic Valve Peak Velocity: 1.49 m/s Mean Velocity: 1.07 m/s Peak Gradient: 8.93 mmHg Mean Gradient: 5.11 mmHg AV Area (continuity): 2.16 cm^2 AV VTI: 28.27 cm AV DVI: 0.63 LVOT Peak Velocity: 1.04 m/s Peak Gradient: 4.31 mmHg Mean Velocity: 0.67 m/s Mean Gradient: 2.16 mmHg LVOT Diameter: 2.09 cm LVOT VTI: 17.77 cm LVOT Area: 3.43 cm^2 LVOT SV:60.93 ml LVOT CO: 4.51 l/min LVOT CI: 2.68 l/min/m^2 Performing Organization Address City/State/Zipcode Phone Number [facility] PERIPHERAL [facility]ASCULAR REPORT - SCAN (11/02/2018 9:10 PM CDT) Narrative Performed At Carotid doppler bilateral (11/02/2018 10:55 AM CDT) Ejection Fraction [facility] [facility] Specimen Impressions Performed At Right Impression [facility] [employer] [facility] 1. THE DISTAL INTERNAL CAROTID ARTERY IS OCCLUDED. There is 70-99% diameter reduction (approximately 81% by 2-D measurement) in the proximal internal carotid artery and with heterogeneous plaque, a peak velocity of 733/351 cm/sec and an ICA/CCA peak systolic velocity ratio of 16.66. 2. There is non-occluding plaque in the external carotid artery. 3. There is non-occluding plaque in the common carotid artery. 4. The vertebral artery flow is antegrade and normal. 5. The subclavian artery is within normal limits where visualized. Left Impression 1. There is <50% diameter reduction (approximately 42% by 2-D measurement) in the internal carotid artery with a peak velocity of 108/31 cm/sec and heterogeneous plaque. 2. There is non-occluding plaque in the external carotid artery. 3. There is non-occluding plaque in the common carotid artery. 4. The vertebral artery flow is antegrade and normal. 5. The subclavian artery is within normal limits where visualized. Conclusions Summary Carotid duplex scanning and color flow imaging were performed bilaterally. The arteries were adequately visualized. THE RIGHT DISTAL INTERNAL CAROTID ARTERY WAS OCCLUDED. The right proximal internal carotid artery had 70-99% hemodynamically significant stenosis (approximately 81% by 2-D measurement) with heterogeneous plaque. The left internal carotid artery had <50% hemodynamically insignificant stenosis (approximately 42% by 2-D measurement) with heterogeneous plaque. Signature Velocities are measured in cm/s ; Diameters are measured in cm Carotid Right Measurements + +----+----+-----+ +---- + + !Location !PSV !EDV !Angle!%Stenosis 2D!%Stenosis Doppler!Tortuosity ! + +----+----+-----+ +---- + + !Prox CCA !49.2!12.2!58 !! ! ! + +----+----+-----+ +---- + + !Dist CCA !44!9.43!60 !! ! ! + +----+----+-----+ +---- + + !Prox ICA !733 !351 !60 !81% !70-99% ! ! + +----+----+-----+ +---- + + !Dist ICA !!! !100%!100% ! ! + +----+----+-----+ +---- + + !Prox ECA !137 !19.6!60 !! ! ! + +----+----+-----+ +---- + + !Vertebral!40.1!8.64!60 !! ! ! + +----+----+-----+ +---- + + !Prox Subclavian!131 !0 !60 !! ! ! + +----+----+-----+ +---- + + - There is antegrade vertebral flow noted on the right side. - Additional Measurements:ICAPSV/CCAPSV 16.66.ICAEDV/CCAEDV 28.77. Carotid Left Measurements + +----+----+-----+ +---- + + !Location !PSV !EDV !Angle!%Stenosis 2D!%Stenosis Doppler!Tortuosity ! + +----+----+-----+ +---- + + !Prox CCA !106 !17.3!60 !! ! ! + +----+----+-----+ +---- + + !Dist CCA !104 !21.2!60 !! ! ! + +----+----+-----+ +---- + + !Prox ICA !108 !31.4!60 !42% !<50% ! ! + +----+----+-----+ +---- + + !Dist ICA !58!18.2!60 !! ! ! + +----+----+-----+ +---- + + !Prox ECA !156 !22.3!60 !! ! ! + +----+----+-----+ +---- + + !Vertebral!86.8!19.3!60 !! ! ! + +----+----+-----+ +---- + + !Prox Subclavian!207 !15.7!60 !! ! ! + +----+----+-----+ +---- + + - There is antegrade vertebral flow noted on the left side. - Additional Measurements:ICAPSV/CCAPSV 1.04.ICAEDV/CCAEDV 1.82. Narrative Performed At LAB - Carotid Duplex Study [facility] Demographics Patient Name MERCEDEZ FERNANDES Date of Study11/02/2018 [id number] Age[age] Visit Number [id number] Male Accession Number [id number] of Birth1950 [facility] [id number] Physician SonographerMichelle SalazarInterpreting Haseeb Wild RVT PhysicianMD Procedure Type of Study: Cerebral: Carotid, CAROTID DOPPLER, BILATERAL. Indications for Study:Stenosis. Patient Status:Routine. Study Location:Vascular Lab. Technical Quality:Adequate visualization. Risk Factors History of Disease + +--- -+ + !Diagnosis !Date!Comments ! + +--- -+ + !History/Risk Factors: !!CAD, DM, HTN ! + +--- -+ + Procedure Note Interface, External Ris In - 11/02/2018 3:15 PM CDT PV LAB - Carotid Duplex Study Demographics Patient Name MERCEDEZ FERNANDES Date of Study 11/02/2018 Age 67 Visit Number [id number] Gender Male Accession Number [id number] Date of 1950 [facility] Room Number 2251 Physician Order Plannerjosiah Salazar Interpreting Haseeb Wild RVT Physician Procedure Type of Study: Cerebral: Carotid, CAROTID DOPPLER, BILATERAL. Indications for Study:Stenosis. Patient Status:Routine. Study Location:Vascular Lab. Technical Quality:Adequate visualization. Risk Factors History of Disease + +----+ + !Diagnosis !Date!Comments ! + +----+ + !History/Risk Factors: ! !CAD, DM, HTN ! + +----+ + Impressions Right Impression 1. THE DISTAL INTERNAL CAROTID ARTERY IS OCCLUDED. There is 70-99% diameter reduction (approximately 81% by 2-D measurement) in the proximal internal carotid artery and with heterogeneous plaque, a peak velocity of 733/351 cm/sec and an ICA/CCA peak systolic velocity ratio of 16.66. 2. There is non-occluding plaque in the external carotid artery. 3. There is non-occluding plaque in the common carotid artery. 4. The vertebral artery flow is antegrade and normal. 5. The subclavian artery is within normal limits where visualized. Left Impression 1. There is <50% diameter reduction (approximately 42% by 2-D measurement) in the internal carotid artery with a peak velocity of 108/31 cm/sec and heterogeneous plaque. 2. There is non-occluding plaque in the external carotid artery. 3. There is non-occluding plaque in the common carotid artery. 4. The vertebral artery flow is antegrade and normal. 5. The subclavian artery is within normal limits where visualized. Conclusions Summary Carotid duplex scanning and color flow imaging were performed bilaterally. The arteries were adequately visualized. THE RIGHT DISTAL INTERNAL CAROTID ARTERY WAS OCCLUDED. The right proximal internal carotid artery had 70-99% hemodynamically significant stenosis (approximately 81% by 2-D measurement) with heterogeneous plaque. The left internal carotid artery had <50% hemodynamically insignificant stenosis (approximately 42% by 2-D measurement) with heterogeneous plaque. Signature Velocities are measured in cm/s ; Diameters are measured in cm Carotid Right Measurements + +----+----+-----+ + + + !Location !PSV !EDV !Angle!%Stenosis 2D!%Stenosis Doppler!Tortuosity ! + +----+----+-----+ + + + !Prox CCA !49.2!12.2!58 ! ! ! ! + +----+----+-----+ + + + !Dist CCA !44 !9.43!60 ! ! ! ! + +----+----+-----+ + + + !Prox ICA !733 !351 !60 !81% !70-99% ! ! + +----+----+-----+ + + + !Dist ICA ! ! ! !100% !100% ! ! + +----+----+-----+ + + + !Prox ECA !137 !19.6!60 ! ! ! ! + +----+----+-----+ + + + !Vertebral !40.1!8.64!60 ! ! ! ! + +----+----+-----+ + + + !Prox Subclavian!131 !0 !60 ! ! ! ! + +----+----+-----+ + + + - There is antegrade vertebral flow noted on the right side. - Additional Measurements:ICAPSV/CCAPSV 16.66.ICAEDV/CCAEDV 28.77. Carotid Left Measurements + +----+----+-----+ + + + !Location !PSV !EDV !Angle!%Stenosis 2D!%Stenosis Doppler!Tortuosity ! + +----+----+-----+ + + + !Prox CCA !106 !17.3!60 ! ! ! ! + +----+----+-----+ + + + !Dist CCA !104 !21.2!60 ! ! ! ! + +----+----+-----+ + + + !Prox ICA !108 !31.4!60 !42% !<50% ! ! + +----+----+-----+ + + + !Dist ICA !58 !18.2!60 ! ! ! ! + +----+----+-----+ + + + !Prox ECA !156 !22.3!60 ! ! ! ! + +----+----+-----+ + + + !Vertebral !86.8!19.3!60 ! ! ! ! + +----+----+-----+ + + + !Prox Subclavian!207 !15.7!60 ! ! ! ! + +----+----+-----+ + + + - There is antegrade vertebral flow noted on the left side. - Additional Measurements:ICAPSV/CCAPSV 1.04.ICAEDV/CCAEDV 1.82. Performing Organization Address City/State/Zipcode Phone Number [facility], manual (11/02/2018 6:39 AM CDT) ABO Grouping AComment: strong rouleaux [facility] observed in reverse [facility] Rh Factor POS [facility] Specimen Blood Performing Organization Address City/[facility] Phone Number [address] [address] Type and screen, automated (11/02/2018 5:21 AM CDT) ABO/RH AUTOMATED (BEAKER) A POSITIVE [facility] Ab Scrn NEGATIVE [facility] Specimen Blood Performing Organization Address [facility] Phone Number [address] [address] [phone] Prothrombin time/INR (11/02/2018 5:21 AM CDT) Protime 14.3 11.7 - 14.7 seconds [facility] INR 1.1 <=5.9 [facility] Specimen Blood Narrative Performed At RECOMMENDED COUMADIN/WARFARIN INR THERAPY [facility] RANGES STANDARD DOSE: 2.0 - 3.0 Includes: PROPHYLAXIS for venous thrombosis, systemic embolization; TREATMENT for venous thrombosis and/or pulmonary embolus. HIGH RISK: Target INR is 2.5-3.5 for patients with mechanical heart valves. Performing Organization Address City/[facility] Phone Number [address] [address] [phone] CENTER B-type Natriuretic Factor (BNP) (11/02/2018 5:21 AM CDT) BNP 722 (H) 0 - 100 pg/mL [facility] Specimen Blood Performing Organization Address [facility] Phone Number [address] [address] CENTER Magnesium (11/01/2018 5:21 AM CDT) Magnesium 2.3 1.6 - 2.6 mg/dL [facility] Specimen Blood Performing Organization Address City/State/Zipcode Phone Number [facility] [address] [place] [address] CENTER Comprehensive metabolic panel (11/01/2018 5:21 AM CDT)Only the most recent of2 resultswithin the time period is included. Protein, Total 5.9 (L) 6.0 - 8.3 gm/dL [facility] Albumin 3.3 (L) 3.5 - 5.0 g/dL [facility] Alkaline Phosphatase 47 40 - 150 U/L [facility] Total Bilirubin 0.9 0.2 - 1.2 mg/dL [facility] Sodium 143 136 - 145 meq/L [facility] Potassium 3.6 3.5 - 5.1 meq/L [facility] Chloride 109 (H) 98 - 107 meq/L [facility] CO2 27 22 - 29 meq/L [facility] BUN 22 (H) 7 - 21 mg/dL [facility] Creatinine 0.89 0.57 - 1.25 mg/dL [facility] Glucose 152 (H) 70 - 105 mg/dL [facility] Calcium 8.9 8.4 - 10.2 mg/dL [facility] AST 35 (H) 5 - 34 U/L [facility] ALT 28 6 - 55 U/L [facility] EGFR 85Comment: ESTIMATED GFR mL/min/1.73 sq m [facility] IS NOT ACCURATE [facility] CREATININE CLEARANCE IN PREDICTING GLOMERULAR FILTRATION RATE. ESTIMATED GFR IS NOT APPLICABLE FOR DIALYSIS PATIENTS. Specimen Blood Performing Organization Address City/State/Zipcode Phone Number [facility] [address] [place] [address] CENTER CTA carotid (10/31/2018 6:22 PM CDT) Specimen Narrative Performed At FINAL REPORT [employer] [facility] CT, CTANGIOBRAIN, CT, CAROTID, ANGIO BRAIN CT WITHOUT CONTRAST INDICATION: Stroke COMPARISON: CT head of the same date TECHNIQUE: Rapid acquisition spiral images were obtained between the aortic arch and the cranial vertex during intravenous contrast infusion to reconstruct axial images and angiographic 3D maximum intensity projections (MIP). 3-D volumetric reformatted images were created at a dedicated workstation. Precontrast images of the brain were also obtained. Stenosis evaluation reported in compliance with NASCET criteria. DOSE REDUCTION: Dose modulation, iterative reconstruction, and/or weight-based adjustment of the mA/kV was utilized to reduce the radiation dose to as low as reasonably achievable. FINDINGS: CT BRAIN: Evolving ischemic changes in the right middle cerebral artery territory with developing encephalomalacia. No petechial hemorrhaging is evident. There is minimal edema but without mass effect or midline shift. Left hemisphere is unremarkable. Ventricular configuration is grossly normal with a small degree of effacement noted on the right. No entrapment is present. Posterior fossa is unremarkable. Osseous abnormality. Paranasal sinuses reveal polyposis versus layering fluid in the left sphenoid chamber. CTA BRAIN: Although attenuated, the middle cerebral artery branches remain perfused beyond the sylvian segments. Cortical segments are opacified, but to a lesser degree than those seen in the left hemisphere. The basilar structures are unremarkable. Intact anterior and posterior tibial arteries are present. CTA NECK: Arch anatomy is conventional with type I morphology. There is no narrowing at the origins of the great cervical vessels. Origins of the vertebral arteries are patent. The left vertebral artery is dominant throughout the cervical course. There is no flow limitation. Common carotid arteries demonstrate normal caliber. There is marked atherosclerotic disease on the right with near complete occlusion of the right internal carotid artery at the origin. Reconstitution of diminutive caliber is noted at C2 level. Left internal carotid artery is widely patent extracranially. Nonvascular findings: Zvbh-xc-ufikpeqq degenerative changes are present in the cervical spine. The skull base is intact. There is no acute osseous abnormality. No critical canal or foraminal stenosis is present. Prevertebral soft tissue structures are within normal limits. There is no pathologic cervical adenopathy. Thyroid gland is unremarkable. Included portions of the lung apices reveal no focal consolidations or pneumothoraces. 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 Minimal edema without midline shift. Ventricular effacement without entrapment. 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 Distal reconstitution by the C2 level. No occlusion of the intracranial circulation. Attenuated opacification of the distal right middle branches. Signed: JR Stein Robert MD Report Verified Date/Time:10/31/2018 18:44:42 Reading Location: [facility] C013V Neuro Reading Room Procedure Note Interface, External Ris In - 11/06/2018 1:57 PM CDT FINAL REPORT CT, CTANGIO BRAIN, CT, CAROTID, ANGIO BRAIN CT WITHOUT CONTRAST INDICATION: Stroke COMPARISON: CT head of the same date TECHNIQUE: Rapid acquisition spiral images were obtained between the aortic arch and the cranial vertex during intravenous contrast infusion to reconstruct axial images and angiographic 3D maximum intensity projections (MIP). 3-D volumetric reformatted images were created at a dedicated workstation. Precontrast images of the brain were also obtained. Stenosis evaluation reported in compliance with NASCET criteria. DOSE REDUCTION: Dose modulation, iterative reconstruction, and/or weight-based adjustment of the mA/kV was utilized to reduce the radiation dose to as low as reasonably achievable. FINDINGS: CT BRAIN: Evolving ischemic changes in the right middle cerebral artery territory with developing encephalomalacia. No petechial hemorrhaging is evident. There is minimal edema but without mass effect or midline shift. Left hemisphere is unremarkable. Ventricular configuration is grossly normal with a small degree of effacement noted on the right. No entrapment is present. Posterior fossa is unremarkable. Osseous abnormality. Paranasal sinuses reveal polyposis versus layering fluid in the left sphenoid chamber. CTA BRAIN: Although attenuated, the middle cerebral artery branches remain perfused beyond the sylvian segments. Cortical segments are opacified, but to a lesser degree than those seen in the left hemisphere. The basilar structures are unremarkable. Intact anterior and posterior tibial arteries are present. CTA NECK: Arch anatomy is conventional with type I morphology. There is no narrowing at the origins of the great cervical vessels. Origins of the vertebral arteries are patent. The left vertebral artery is dominant throughout the cervical course. There is no flow limitation. Common carotid arteries demonstrate normal caliber. There is marked atherosclerotic disease on the right with near complete occlusion of the right internal carotid artery at the origin. Reconstitution of diminutive caliber is noted at C2 level. Left internal carotid artery is widely patent extracranially. Nonvascular findings: Hsbh-gz-snjnzksf degenerative changes are present in the cervical spine. The skull base is intact. There is no acute osseous abnormality. No critical canal or foraminal stenosis is present. Prevertebral soft tissue structures are within normal limits. There is no pathologic cervical adenopathy. Thyroid gland is unremarkable. Included portions of the lung apices reveal no focal consolidations or pneumothoraces. 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 Minimal edema without midline shift. Ventricular effacement without entrapment. 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 Distal reconstitution by the C2 level. No occlusion of the intracranial circulation. Attenuated opacification of the distal right middle branches. Signed: JR Stein Robert MD Report Verified Date/Time: 10/31/2018 18:44:42 Reading Location: [address] Neuro Reading Room Performing Organization Address City/State/Zipcode Phone Number [facility] CTA brain (10/31/2018 6:22 PM CDT) Specimen Narrative Performed At FINAL REPORT [facility] CT, CTANGIOBRAIN, CT, CAROTID, ANGIO BRAIN CT WITHOUT CONTRAST INDICATION: Stroke COMPARISON: CT head of the same date TECHNIQUE: Rapid acquisition spiral images were obtained between the aortic arch and the cranial vertex during intravenous contrast infusion to reconstruct axial images and angiographic 3D maximum intensity projections (MIP). 3-D volumetric reformatted images were created at a dedicated workstation. Precontrast images of the brain were also obtained. Stenosis evaluation reported in compliance with NASCET criteria. DOSE REDUCTION: Dose modulation, iterative reconstruction, and/or weight-based adjustment of the mA/kV was utilized to reduce the radiation dose to as low as reasonably achievable. FINDINGS: CT BRAIN: Evolving ischemic changes in the right middle cerebral artery territory with developing encephalomalacia. No petechial hemorrhaging is evident. There is minimal edema but without mass effect or midline shift. Left hemisphere is unremarkable. Ventricular configuration is grossly normal with a small degree of effacement noted on the right. No entrapment is present. Posterior fossa is unremarkable. Osseous abnormality. Paranasal sinuses reveal polyposis versus layering fluid in the left sphenoid chamber. CTA BRAIN: Although attenuated, the middle cerebral artery branches remain perfused beyond the sylvian segments. Cortical segments are opacified, but to a lesser degree than those seen in the left hemisphere. The basilar structures are unremarkable. Intact anterior and posterior tibial arteries are present. CTA NECK: Arch anatomy is conventional with type I morphology. There is no narrowing at the origins of the great cervical vessels. Origins of the vertebral arteries are patent. The left vertebral artery is dominant throughout the cervical course. There is no flow limitation. Common carotid arteries demonstrate normal caliber. There is marked atherosclerotic disease on the right with near complete occlusion of the right internal carotid artery at the origin. Reconstitution of diminutive caliber is noted at C2 level. Left internal carotid artery is widely patent extracranially. Nonvascular findings: Yqeo-aj-wgjkjcpd degenerative changes are present in the cervical spine. The skull base is intact. There is no acute osseous abnormality. No critical canal or foraminal stenosis is present. Prevertebral soft tissue structures are within normal limits. There is no pathologic cervical adenopathy. Thyroid gland is unremarkable. Included portions of the lung apices reveal no focal consolidations or pneumothoraces. 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 Minimal edema without midline shift. Ventricular effacement without entrapment. 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 Distal reconstitution by the C2 level. No occlusion of the intracranial circulation. Attenuated opacification of the distal right middle branches. Signed: JR Emil, Keenan DUKES Report Verified Date/Time:10/31/2018 18:44:42 Reading Location: [facility] B1 C013V Neuro Reading Room Procedure Note Interface, External Ris In - 11/06/2018 1:57 PM CDT FINAL REPORT CT, CTANGIO BRAIN, CT, CAROTID, ANGIO BRAIN CT WITHOUT CONTRAST INDICATION: Stroke COMPARISON: CT head of the same date TECHNIQUE: Rapid acquisition spiral images were obtained between the aortic arch and the cranial vertex during intravenous contrast infusion to reconstruct axial images and angiographic 3D maximum intensity projections (MIP). 3-D volumetric reformatted images were created at a dedicated workstation. Precontrast images of the brain were also obtained. Stenosis evaluation reported in compliance with NASCET criteria. DOSE REDUCTION: Dose modulation, iterative reconstruction, and/or weight-based adjustment of the mA/kV was utilized to reduce the radiation dose to as low as reasonably achievable. FINDINGS: CT BRAIN: Evolving ischemic changes in the right middle cerebral artery territory with developing encephalomalacia. No petechial hemorrhaging is evident. There is minimal edema but without mass effect or midline shift. Left hemisphere is unremarkable. Ventricular configuration is grossly normal with a small degree of effacement noted on the right. No entrapment is present. Posterior fossa is unremarkable. Osseous abnormality. Paranasal sinuses reveal polyposis versus layering fluid in the left sphenoid chamber. CTA BRAIN: Although attenuated, the middle cerebral artery branches remain perfused beyond the sylvian segments. Cortical segments are opacified, but to a lesser degree than those seen in the left hemisphere. The basilar structures are unremarkable. Intact anterior and posterior tibial arteries are present. CTA NECK: Arch anatomy is conventional with type I morphology. There is no narrowing at the origins of the great cervical vessels. Origins of the vertebral arteries are patent. The left vertebral artery is dominant throughout the cervical course. There is no flow limitation. Common carotid arteries demonstrate normal caliber. There is marked atherosclerotic disease on the right with near complete occlusion of the right internal carotid artery at the origin. Reconstitution of diminutive caliber is noted at C2 level. Left internal carotid artery is widely patent extracranially. Nonvascular findings: Dlpy-qh-zeylorrm degenerative changes are present in the cervical spine. The skull base is intact. There is no acute osseous abnormality. No critical canal or foraminal stenosis is present. Prevertebral soft tissue structures are within normal limits. There is no pathologic cervical adenopathy. Thyroid gland is unremarkable. Included portions of the lung apices reveal no focal consolidations or pneumothoraces. 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 Minimal edema without midline shift. Ventricular effacement without entrapment. 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 Distal reconstitution by the C2 level. No occlusion of the intracranial circulation. Attenuated opacification of the distal right middle branches. Signed: JR Emil, Keenan DUKES Report Verified Date/Time: 10/31/2018 18:44:42 Reading Location: [facility] B1 C013V Neuro Reading Room Performing Organization Address City/State/Zipcode Phone Number [facility] C-Reactive Protein (10/31/2018 5:28 AM CDT) CRP 4.19 (H) 0.00 - 0.50 mg/dL [facility] Specimen Blood Performing Organization Address City/[facility] Phone Number [address] [address] CENTER Vitamin B12 (10/31/2018 5:28 AM CDT) Vitamin B12 595 213 - 816 pg/mL [facility] Specimen Blood Performing Organization Address [facility] Phone Number [address] [address] [place] TSH/Free T4 If Indicated (10/31/2018 4:23 AM CDT) TSH 2.46 0.35 - 4.94 uIU/mL [facility] Specimen Blood Performing Organization Address [facility] Phone Number [address] [address] CENTER RPR (10/31/2018 4:23 AM CDT) RPR Nonreactive Nonreactive [facility] Specimen Blood Performing Organization Address [facility] Phone Number [address] [address] CENTER Manual Differential (10/31/2018 4:16 AM CDT) % Neutros 77 % [facility] % Lymphs 15 % [facility] % Monos 4 % [facility] % Bands 3 0 - 10 % [facility] % Atypical Lymphs 1 (H) 0 - 0 % [facility] # Neutros 14.86 (H) 1.78 - 5.38 K/ul [facility] # Lymphs 2.90 1.32 - 3.57 K/ul [facility] # Monos 0.77 0.30 - 0.82 K/uL [facility] # Bands 0.58 0.00 - 0.80 K/uL [facility] # Atypical Lymphs 0.19 (H) 0.00 - 0.00 K/uL [facility] Total Counted 100 [facility] Smudge Cells Present [facility] Giant Platelet Present [facility] Polychromasia 1+ few [facility] Anisocytosis 1+ few [facility] Microcytes 1+ few [facility] Artifact Present [facility] Platelet Conc Adequate [facility] Specimen Blood Narrative Performed At Received comment: [facility] User comments: Slide comments: Performing Organization Address City/[facility] Phone Number [facility] [address] [place] [phone] [place] Hemoglobin A1c (10/31/2018 4:16 AM CDT) Hemoglobin A1C 8.4 (H) 4.3 - 6.1 % [facility] Specimen Blood Performing Organization Address City/[facility] Phone Number [facility] [address] [place] [address] [phone] [place] Lipid panel (10/31/2018 4:16 AM CDT) Triglycerides 191 mg/dL [facility] Cholesterol 115 mg/dL [facility] HDL 41 mg/dL [facility] LDL Calculated 36 mg/dL [facility] Specimen Blood Narrative Performed At Triglyceride Reference Range: [facility] Low Risk <150 [id number] High Risk 200-499 Very High Risk>=500 Cholesterol Reference Range: Low Risk <200 [id number] High Risk>240 HDL Cholesterol Reference Range: Low Risk >=60 High Risk <40 LDL Cholesterol Reference Range: Optimal<100 Near [id number] [id number] Very High >=190 Performing Organization Address City/State/Zipcode Phone Number [facility] [address] [place] [address] CENTER after 04/15/2018 Insurance Payer Benefit Plan / Group Subscriber ID Type Phone Address [facility] xxxxxxxx Maps Contracted Advance Directives For more information, please contact:[facility] [place], [place] [phone] Code Status Date Activated Date Inactivated Comments Full Code 11/16/2018 5:00 PM 11/20/2018 8:30 PM This code status was determined by: Patient Full Code 11/07/2018 8:16 PM 11/16/2018 5:00 PM This code status was determined by: Patient Full Code 10/31/2018 3:33 AM 11/07/2018 8:16 PM This code status was determined by: Patient
--- OUTSIDE RECORDS SUMMARY | 2019-04-16 03:01 | XMS REPORT ---
:1950 [facility] Organization [facility] Address [address] [place] [address] [address] [place] [address] Care Team Providers Name Role Phone SARAHELIFPOLLY VILLALBA Unavailable Unavailable Problems This patient has no known problems. Allergies, Adverse Reactions, Alerts This patient has no known allergies or adverse reactions. Medications This patient has no known medications. Results Test Description Test Time Test Comments Text Results Atomic Results Result Comments BLOOD CULTURE 2018-11-23 02:01:00 Test Item Value Reference Range Comments CULTURE (BEAKER) (test xyxz=7196) No growth in 5 days BLOOD [id number] 02:01:00 Test Item Value Reference Range Comments CULTURE (BEAKER) (test crgo=9333) No growth in 5 days POCT-GLUCOSE [id number] 17:22:00 Test Item Value Reference Range Comments POC-GLUCOSE METER (BEAKER) 212 mg/dL 70-110 TESTED AT [address] (test liwy=3856) [place] [id number] POCT-GLUCOSE [id number] 12:44:00 Test Item Value Reference Range Comments POC-GLUCOSE METER (BEAKER) 229 mg/dL 70-110 TESTED AT [address] (test nwvs=0654) [place] [id number] POCT-GLUCOSE [id number] 06:22:00 Test Item Value Reference Range Comments POC-GLUCOSE METER (BEAKER) 211 mg/dL 70-110 TESTED AT [address] (test qdzf=8897) [place] [address] BASIC METABOLIC [id number] 06:20:00 Test Item Value Reference Range Comments SODIUM (BEAKER) (test 140 meq/L 136-145 qczf=561) POTASSIUM (BEAKER) (test 4.3 meq/L 3.5-5.1 buii=018) CHLORIDE (BEAKER) (test 106 meq/L 98-107 mfyz=640) CO2 (BEAKER) (test 27 meq/L 22-29 zazp=988) BLOOD UREA NITROGEN 35 mg/dL 7-21 (BEAKER) (test uxlt=739) CREATININE (BEAKER) (test 0.95 mg/dL 0.57-1.25 mwci=191) GLUCOSE RANDOM (BEAKER) 200 mg/dL 70-105 (test pajt=271) CALCIUM (BEAKER) (test 9.2 mg/dL 8.4-10.2 oqox=795) EGFR (BEAKER) (test 78 mL/min/1.73 sq m ESTIMATED GFR IS NOT sydx=7342) ACCURATE CREATININE CLEARANCE IN PREDICTING GLOMERULAR FILTRATION RATE. ESTIMATED GFR IS NOT APPLICABLE FOR DIALYSIS PATIENTS. CBC (HEMOGRAM ONLY)2018-11-20 05:54:00 Test Item Value Reference Range Comments WHITE BLOOD CELL COUNT (BEAKER) (test htts=540) 10.6 K/ L 3.5-10.5 RED BLOOD CELL COUNT (BEAKER) (test jqar=337) 4.30 M/ L 4.63-6.08 HEMOGLOBIN (BEAKER) (test nmek=542) 12.0 GM/DL 13.7-17.5 HEMATOCRIT (BEAKER) (test lclr=080) 37.9 % 40.1-51.0 MEAN CORPUSCULAR VOLUME (BEAKER) (test rwwg=275) 88.1 fL 79.0-92.2 MEAN CORPUSCULAR HEMOGLOBIN (BEAKER) (test 27.9 pg 25.7-32.2 vbeq=036) MEAN CORPUSCULAR HEMOGLOBIN CONC (BEAKER) (test 31.7 GM/DL 32.3-36.5 voij=504) RED CELL DISTRIBUTION WIDTH (BEAKER) (test 15.0 % 11.6-14.4 fzqr=576) PLATELET COUNT (BEAKER) (test ixki=538) 339 K/CU MM 150-450 MEAN PLATELET VOLUME (BEAKER) (test iing=514) 11.5 fL 9.4-12.4 NUCLEATED RED BLOOD CELLS (BEAKER) (test 0 /100 WBC 0-0 gdeu=825) POCT-GLUCOSE [id number] 23:49:00 Test Item Value Reference Range Comments POC-GLUCOSE METER (BEAKER) 230 mg/dL 70-110 TESTED AT [address] (test efle=9468) [place] [id number] POCT-GLUCOSE [id number] 18:04:00 Test Item Value Reference Range Comments POC-GLUCOSE METER (BEAKER) 256 mg/dL 70-110 TESTED AT [address] (test nuwo=8088) [place] [address] URINALYSIS WITH MICROSCOPIC IF [id number] 14:11:00 Test Item Value Reference Range Comments COLOR (BEAKER) (test ruap=856) Yellow CLARITY (BEAKER) (test ufxn=965) Hazy SPECIFIC GRAVITY UA (BEAKER) (test hncy=302) 1.016 1.001-1.035 PH UA (BEAKER) (test xggb=852) 7.5 5.0-8.0 PROTEIN UA (BEAKER) (test hrsp=847) Negative Negative GLUCOSE UA (BEAKER) (test utpi=104) Negative Negative KETONES UA (BEAKER) (test vnrj=716) Negative Negative BILIRUBIN UA (BEAKER) (test pwzc=388) Negative Negative BLOOD UA (BEAKER) (test dhha=839) Negative Negative NITRITE UA (BEAKER) (test dzqa=879) Negative Negative LEUKOCYTE ESTERASE UA (BEAKER) (test sqfi=885) Negative Negative UROBILINOGEN UA (BEAKER) (test pkvc=326) 0.2 mg/dL 0.2-1.0 SOURCE(BEAKER) (test htzf=6450) POCT-GLUCOSE [id number] 12:12:00 Test Item Value Reference Range Comments POC-GLUCOSE METER (BEAKER) 227 mg/dL 70-110 TESTED AT [address] (test dpdr=3436) [place] [address] POCT-GLUCOSE [id number] 11:58:00 Test Item Value Reference Range Comments POC-GLUCOSE METER (BEAKER) 243 mg/dL 70-110 TESTED AT [address] (test ihqk=1223) [place] [address] BASIC METABOLIC [id number] 05:42:00 Test Item Value Reference Range Comments SODIUM (BEAKER) (test 140 meq/L 136-145 ptcz=600) POTASSIUM (BEAKER) (test 4.5 meq/L 3.5-5.1 idoz=458) CHLORIDE (BEAKER) (test 105 meq/L 98-107 gymf=126) CO2 (BEAKER) (test 27 meq/L 22-29 tuyw=481) BLOOD UREA NITROGEN 40 mg/dL 7-21 (BEAKER) (test qetr=255) CREATININE (BEAKER) (test 1.01 mg/dL 0.57-1.25 pnoe=555) GLUCOSE RANDOM (BEAKER) 231 mg/dL 70-105 (test xdza=905) CALCIUM (BEAKER) (test 9.4 mg/dL 8.4-10.2 zcpu=194) EGFR (BEAKER) (test 73 mL/min/1.73 sq m ESTIMATED GFR IS NOT weny=9613) ACCURATE CREATININE CLEARANCE IN PREDICTING GLOMERULAR FILTRATION RATE. ESTIMATED GFR IS NOT APPLICABLE FOR DIALYSIS PATIENTS. CBC (HEMOGRAM ONLY)2018-11-19 05:23:00 Test Item Value Reference Range Comments WHITE BLOOD CELL COUNT (BEAKER) (test vwtw=918) 11.9 K/ L 3.5-10.5 RED BLOOD CELL COUNT (BEAKER) (test khyt=842) 4.05 M/ L 4.63-6.08 HEMOGLOBIN (BEAKER) (test qnoi=403) 11.5 GM/DL 13.7-17.5 HEMATOCRIT (BEAKER) (test hphr=796) 35.3 % 40.1-51.0 MEAN CORPUSCULAR VOLUME (BEAKER) (test qnbf=326) 87.2 fL 79.0-92.2 MEAN CORPUSCULAR HEMOGLOBIN (BEAKER) (test 28.4 pg 25.7-32.2 gxor=536) MEAN CORPUSCULAR HEMOGLOBIN CONC (BEAKER) (test 32.6 GM/DL 32.3-36.5 odyx=220) RED CELL DISTRIBUTION WIDTH (BEAKER) (test 14.7 % 11.6-14.4 vaav=002) PLATELET COUNT (BEAKER) (test mgzo=900) 354 K/CU MM 150-450 MEAN PLATELET VOLUME (BEAKER) (test udky=812) 11.2 fL 9.4-12.4 NUCLEATED RED BLOOD CELLS (BEAKER) (test 0 /100 WBC 0-0 hiol=188) POCT-GLUCOSE [id number] 17:25:00 Test Item Value Reference Range Comments POC-GLUCOSE METER (BEAKER) 267 mg/dL 70-110 TESTED AT [address] (test dypo=2529) [place] [address] URINALYSIS W/ REFLEX URINE [id number] 14:12:00 Test Item Value Reference Range Comments COLOR (BEAKER) (test plcc=861) Yellow CLARITY (BEAKER) (test ixkq=441) Clear SPECIFIC GRAVITY UA (BEAKER) (test knpx=065) 1.018 1.001-1.035 PH UA (BEAKER) (test exgd=889) 6.5 5.0-8.0 PROTEIN UA (BEAKER) (test kuhi=804) 10 mg/dL Negative GLUCOSE UA (BEAKER) (test gbjx=980) Negative Negative KETONES UA (BEAKER) (test ewtl=901) Negative Negative BILIRUBIN UA (BEAKER) (test ievl=876) Negative Negative BLOOD UA (BEAKER) (test ytho=155) Negative Negative NITRITE UA (BEAKER) (test bggo=573) Positive Negative LEUKOCYTE ESTERASE UA (BEAKER) (test huxe=656) Moderate Negative UROBILINOGEN UA (BEAKER) (test hprz=485) 0.2 mg/dL 0.2-1.0 RBC UA (BEAKER) (test iggb=440) < /HPF WBC UA (BEAKER) (test usjw=745) 15 /HPF BACTERIA (BEAKER) (test fcrl=976) Rare MUCUS (BEAKER) (test dmqx=1022) Rare YEAST (BEAKER) (test ukfh=0816) Rare SOURCE(BEAKER) (test gqny=8608) POCT-GLUCOSE [id number] 11:51:00 Test Item Value Reference Range Comments POC-GLUCOSE METER (BEAKER) 258 mg/dL 70-110 TESTED AT [address] (test fdlk=1138) [place] [address] POCT-GLUCOSE [id number] 09:43:00 Test Item Value Reference Range Comments POC-GLUCOSE METER (BEAKER) 235 mg/dL 70-110 TESTED AT [address] (test xywi=8879) [place] [address] TROPONIN [id number] 05:55:00 Test Item Value Reference Range Comments TROPONIN I (BEAKER) (test lhjb=433) 1.66 ng/mL 0.00-0.03 Troponin I (TnI) levels must be interpreted in the context of the presenting symptoms and the clinical findings. Elevated TnI levels indicate myocardial damage, but are not specific for ischemic heart disease. Elevated TnI levels are seen in patients with other cardiac conditions (including myocarditis and congestive heart failure), and slight TnI elevations occur in patients with other conditions, including sepsis, renal failure, acidosis, acute neurological disease, and persistent tachyarrhythmia.BASIC METABOLIC [id number] 05:53:00 Test Item Value Reference Range Comments SODIUM (BEAKER) (test 139 meq/L 136-145 nflf=792) POTASSIUM (BEAKER) (test 4.5 meq/L 3.5-5.1 Specimen slightly uqlm=448) hemolyzed CHLORIDE (BEAKER) (test 104 meq/L 98-107 wjny=367) CO2 (BEAKER) (test 27 meq/L 22-29 dsys=390) BLOOD UREA NITROGEN 37 mg/dL 7-21 (BEAKER) (test dlef=168) CREATININE (BEAKER) (test 0.98 mg/dL 0.57-1.25 Specimen slightly fdzb=394) hemolyzed GLUCOSE RANDOM (BEAKER) 214 mg/dL 70-105 (test fjsr=207) CALCIUM (BEAKER) (test 9.4 mg/dL 8.4-10.2 tdgu=144) EGFR (BEAKER) (test 76 mL/min/1.73 sq m ESTIMATED GFR IS NOT ueaa=1872) ACCURATE CREATININE CLEARANCE IN PREDICTING GLOMERULAR FILTRATION RATE. ESTIMATED GFR IS NOT APPLICABLE FOR DIALYSIS PATIENTS. CBC (HEMOGRAM ONLY)2018-11-18 05:27:00 Test Item Value Reference Range Comments WHITE BLOOD CELL COUNT (BEAKER) (test fomq=154) 11.7 K/ L 3.5-10.5 RED BLOOD CELL COUNT (BEAKER) (test bggr=382) 4.10 M/ L 4.63-6.08 HEMOGLOBIN (BEAKER) (test skgv=414) 11.7 GM/DL 13.7-17.5 HEMATOCRIT (BEAKER) (test utrb=098) 35.6 % 40.1-51.0 MEAN CORPUSCULAR VOLUME (BEAKER) (test icns=313) 86.8 fL 79.0-92.2 MEAN CORPUSCULAR HEMOGLOBIN (BEAKER) (test 28.5 pg 25.7-32.2 gkbc=228) MEAN CORPUSCULAR HEMOGLOBIN CONC (BEAKER) (test 32.9 GM/DL 32.3-36.5 fafx=605) RED CELL DISTRIBUTION WIDTH (BEAKER) (test 14.6 % 11.6-14.4 pgtx=230) PLATELET COUNT (BEAKER) (test iyff=302) 361 K/CU MM 150-450 MEAN PLATELET VOLUME (BEAKER) (test gqyg=226) 11.1 fL 9.4-12.4 NUCLEATED RED BLOOD CELLS (BEAKER) (test 0 /100 WBC 0-0 kohj=969) POCT-GLUCOSE [id number] 01:42:00 Test Item Value Reference Range Comments POC-GLUCOSE METER (BEAKER) 239 mg/dL 70-110 TESTED AT [facility] [address] [facility] (test sgun=8402) [facility] [address] TROPONIN [id number] 00:15:00 Test Item Value Reference Range Comments TROPONIN I (BEAKER) (test gvfp=576) 1.73 ng/mL 0.00-0.03 Troponin I (TnI) levels must be interpreted in the context of the presenting symptoms and the clinical findings. Elevated TnI levels indicate myocardial damage, but are not specific for ischemic heart disease. Elevated TnI levels are seen in patients with other cardiac conditions (including myocarditis and congestive heart failure), and slight TnI elevations occur in patients with other conditions, including sepsis, renal failure, acidosis, acute neurological disease, and persistent tachyarrhythmia.URINALYSIS WITH MICROSCOPIC IF [id number] 00:06:00 Test Item Value Reference Range Comments COLOR (BEAKER) (test wviy=456) Yellow CLARITY (BEAKER) (test typp=363) Hazy SPECIFIC GRAVITY UA (BEAKER) (test iknz=310) 1.017 1.001-1.035 PH UA (BEAKER) (test ikom=517) 6.5 5.0-8.0 PROTEIN UA (BEAKER) (test panj=073) Negative Negative GLUCOSE UA (BEAKER) (test fjsj=731) Negative Negative KETONES UA (BEAKER) (test twth=253) Trace Negative BILIRUBIN UA (BEAKER) (test zoux=054) Negative Negative BLOOD UA (BEAKER) (test fvwl=400) Negative Negative NITRITE UA (BEAKER) (test mifp=005) Positive Negative LEUKOCYTE ESTERASE UA (BEAKER) (test akaw=046) Small Negative UROBILINOGEN UA (BEAKER) (test atuj=395) 0.2 mg/dL 0.2-1.0 SOURCE(BEAKER) (test khaw=9758) URINALYSIS [id number] 00:06:00 Test Item Value Reference Range Comments RBC UA (BEAKER) (test rfuj=522) 1 /HPF WBC UA (BEAKER) (test auux=846) 5 /HPF BACTERIA (BEAKER) (test yjbe=997) Rare MUCUS (BEAKER) (test dhsr=8837) Rare TROPONIN [id number] 18:49:00 Test Item Value Reference Range Comments TROPONIN I (BEAKER) (test vbpq=968) 1.45 ng/mL 0.00-0.03 Troponin I (TnI) levels must be interpreted in the context of the presenting symptoms and the clinical findings. Elevated TnI levels indicate myocardial damage, but are not specific for ischemic heart disease. Elevated TnI levels are seen in patients with other cardiac conditions (including myocarditis and congestive heart failure), and slight TnI elevations occur in patients with other conditions, including sepsis, renal failure, acidosis, acute neurological disease, and persistent tachyarrhythmia.POCT-GLUCOSE [id number] 16:26:00 Test Item Value Reference Range Comments POC-GLUCOSE METER (BEAKER) 316 mg/dL 70-110 Notified JACLYN DUKES/TESTED AT [facility] (test arwg=6619) [address] [facility] [address] POCT-GLUCOSE [id number] 13:27:00 Test Item Value Reference Range Comments POC-GLUCOSE METER (BEAKER) 272 mg/dL 70-110 TESTED AT [address] (test iuyp=9011) [place] [id number] TROPONIN [id number] 11:19:00 Test Item Value Reference Range Comments TROPONIN I (BEAKER) (test hlml=260) 0.84 ng/mL 0.00-0.03 Troponin I (TnI) levels must be interpreted in the context of the presenting symptoms and the clinical findings. Elevated TnI levels indicate myocardial damage, but are not specific for ischemic heart disease. Elevated TnI levels are seen in patients with other cardiac conditions (including myocarditis and congestive heart failure), and slight TnI elevations occur in patients with other conditions, including sepsis, renal failure, acidosis, acute neurological disease, and persistent tachyarrhythmia.BASIC METABOLIC [id number] 07:39:00 Test Item Value Reference Range Comments SODIUM (BEAKER) (test 137 meq/L 136-145 ryqc=917) POTASSIUM (BEAKER) (test 4.6 meq/L 3.5-5.1 byeb=516) CHLORIDE (BEAKER) (test 104 meq/L 98-107 cwbb=182) CO2 (BEAKER) (test 24 meq/L 22-29 jlwt=047) BLOOD UREA NITROGEN 35 mg/dL 7-21 (BEAKER) (test yeah=119) CREATININE (BEAKER) (test 1.02 mg/dL 0.57-1.25 yrsv=083) GLUCOSE RANDOM (BEAKER) 242 mg/dL 70-105 (test ggik=453) CALCIUM (BEAKER) (test 9.5 mg/dL 8.4-10.2 iuga=248) EGFR (BEAKER) (test 72 mL/min/1.73 sq m ESTIMATED GFR IS NOT oeyp=0459) ACCURATE CREATININE CLEARANCE IN PREDICTING GLOMERULAR FILTRATION RATE. ESTIMATED GFR IS NOT APPLICABLE FOR DIALYSIS PATIENTS. TROPONIN [id number] 06:49:00 Test Item Value Reference Range Comments TROPONIN I (BEAKER) (test tuho=554) 0.23 ng/mL 0.00-0.03 Troponin I (TnI) levels must be interpreted in the context of the presenting symptoms and the clinical findings. Elevated TnI levels indicate myocardial damage, but are not specific for ischemic heart disease. Elevated TnI levels are seen in patients with other cardiac conditions (including myocarditis and congestive heart failure), and slight TnI elevations occur in patients with other conditions, including sepsis, renal failure, acidosis, acute neurological disease, and persistent tachyarrhythmia.POCT-GLUCOSE [id number] 05:50:00 Test Item Value Reference Range Comments POC-GLUCOSE METER (BEAKER) 244 mg/dL 70-110 TESTED AT [facility] [address] [facility] (test qifw=9888) [facility] [address] CBC (HEMOGRAM ONLY)2018-11-17 04:38:00 Test Item Value Reference Range Comments WHITE BLOOD CELL COUNT (BEAKER) (test hehr=427) 13.2 K/ L 3.5-10.5 RED BLOOD CELL COUNT (BEAKER) (test uaeb=573) 4.23 M/ L 4.63-6.08 HEMOGLOBIN (BEAKER) (test rxjt=909) 11.9 GM/DL 13.7-17.5 HEMATOCRIT (BEAKER) (test razz=599) 37.0 % 40.1-51.0 MEAN CORPUSCULAR VOLUME (BEAKER) (test njku=883) 87.5 fL 79.0-92.2 MEAN CORPUSCULAR HEMOGLOBIN (BEAKER) (test 28.1 pg 25.7-32.2 hhem=720) MEAN CORPUSCULAR HEMOGLOBIN CONC (BEAKER) (test 32.2 GM/DL 32.3-36.5 halo=474) RED CELL DISTRIBUTION WIDTH (BEAKER) (test 14.8 % 11.6-14.4 ootk=708) PLATELET COUNT (BEAKER) (test lsmb=312) 391 K/CU MM 150-450 MEAN PLATELET VOLUME (BEAKER) (test qzdw=451) 10.7 fL 9.4-12.4 NUCLEATED RED BLOOD CELLS (BEAKER) (test 0 /100 WBC 0-0 zgui=784) POCT-GLUCOSE [id number] 23:38:00 Test Item Value Reference Range Comments POC-GLUCOSE METER (BEAKER) 232 mg/dL 70-110 TESTED AT [address] (test svwg=9983) [place] [address] TROPONIN [id number] 18:59:00 Test Item Value Reference Range Comments TROPONIN I (BEAKER) (test hwvn=805) 0.02 ng/mL 0.00-0.03 Troponin I (TnI) levels must be interpreted in the context of the presenting symptoms and the clinical findings. Elevated TnI levels indicate myocardial damage, but are not specific for ischemic heart disease. Elevated TnI levels are seen in patients with other cardiac conditions (including myocarditis and congestive heart failure), and slight TnI elevations occur in patients with other conditions, including sepsis, renal failure, acidosis, acute neurological disease, and persistent tachyarrhythmia.POCT-GLUCOSE [id number] 18:22:00 Test Item Value Reference Range Comments POC-GLUCOSE METER (BEAKER) 244 mg/dL 70-110 TESTED AT [address] (test wpqb=8180) [place] [address] BASIC METABOLIC [id number] 06:29:00 Test Item Value Reference Range Comments SODIUM (BEAKER) (test 135 meq/L 136-145 mndr=918) POTASSIUM (BEAKER) (test 4.5 meq/L 3.5-5.1 igyl=478) CHLORIDE (BEAKER) (test 101 meq/L 98-107 tdgi=854) CO2 (BEAKER) (test 26 meq/L 22-29 rssp=002) BLOOD UREA NITROGEN 35 mg/dL 7-21 (BEAKER) (test yjfr=760) CREATININE (BEAKER) (test 1.02 mg/dL 0.57-1.25 oszm=255) GLUCOSE RANDOM (BEAKER) 218 mg/dL 70-105 (test cwjr=021) CALCIUM (BEAKER) (test 9.6 mg/dL 8.4-10.2 hyfl=507) EGFR (BEAKER) (test 72 mL/min/1.73 sq m ESTIMATED GFR IS NOT lrad=4441) ACCURATE CREATININE CLEARANCE IN PREDICTING GLOMERULAR FILTRATION RATE. ESTIMATED GFR IS NOT APPLICABLE FOR DIALYSIS PATIENTS. CBC (HEMOGRAM ONLY)2018-11-16 06:02:00 Test Item Value Reference Range Comments WHITE BLOOD CELL COUNT (BEAKER) (test ymib=793) 11.8 K/ L 3.5-10.5 RED BLOOD CELL COUNT (BEAKER) (test hgmv=030) 4.32 M/ L 4.63-6.08 HEMOGLOBIN (BEAKER) (test fhtm=882) 12.4 GM/DL 13.7-17.5 HEMATOCRIT (BEAKER) (test gvfa=285) 37.3 % 40.1-51.0 MEAN CORPUSCULAR VOLUME (BEAKER) (test aril=477) 86.3 fL 79.0-92.2 MEAN CORPUSCULAR HEMOGLOBIN (BEAKER) (test 28.7 pg 25.7-32.2 nwog=663) MEAN CORPUSCULAR HEMOGLOBIN CONC (BEAKER) (test 33.2 GM/DL 32.3-36.5 bjbi=629) RED CELL DISTRIBUTION WIDTH (BEAKER) (test 14.6 % 11.6-14.4 byjf=010) PLATELET COUNT (BEAKER) (test sias=467) 379 K/CU MM 150-450 MEAN PLATELET VOLUME (BEAKER) (test oyfp=528) 10.6 fL 9.4-12.4 NUCLEATED RED BLOOD CELLS (BEAKER) (test 0 /100 WBC 0-0 hzca=227) POCT-GLUCOSE [id number] 05:53:00 Test Item Value Reference Range Comments POC-GLUCOSE METER (BEAKER) 208 mg/dL 70-110 TESTED AT [address] (test icxz=6602) [facility] [address] POCT-GLUCOSE [id number] 23:49:00 Test Item Value Reference Range Comments POC-GLUCOSE METER (BEAKER) 221 mg/dL 70-110 TESTED AT [address] (test ylqo=0721) [facility] [address] POCT-GLUCOSE [id number] 17:37:00 Test Item Value Reference Range Comments POC-GLUCOSE METER (BEAKER) 237 mg/dL 70-110 TESTED AT [address] (test rmyw=8076) [place] [id number] POCT-GLUCOSE [id number] 12:33:00 Test Item Value Reference Range Comments POC-GLUCOSE METER (BEAKER) 223 mg/dL 70-110 TESTED AT [address] (test fpcx=2047) [facility] [address] POCT-GLUCOSE [id number] 06:38:00 Test Item Value Reference Range Comments POC-GLUCOSE METER (BEAKER) 247 mg/dL 70-110 TESTED AT [address] (test vppi=3004) [facility] [address] BASIC METABOLIC [id number] 06:01:00 Test Item Value Reference Range Comments SODIUM (BEAKER) (test 135 meq/L 136-145 fdpf=623) POTASSIUM (BEAKER) (test 4.7 meq/L 3.5-5.1 ypvu=877) CHLORIDE (BEAKER) (test 100 meq/L 98-107 vaxz=835) CO2 (BEAKER) (test 25 meq/L 22-29 mijz=719) BLOOD UREA NITROGEN 29 mg/dL 7-21 (BEAKER) (test njvq=274) CREATININE (BEAKER) (test 0.97 mg/dL 0.57-1.25 ckcz=855) GLUCOSE RANDOM (BEAKER) 217 mg/dL 70-105 (test igav=856) CALCIUM (BEAKER) (test 9.6 mg/dL 8.4-10.2 jjgh=761) EGFR (BEAKER) (test 77 mL/min/1.73 sq m ESTIMATED GFR IS NOT bpdu=0589) ACCURATE CREATININE CLEARANCE IN PREDICTING GLOMERULAR FILTRATION RATE. ESTIMATED GFR IS NOT APPLICABLE FOR DIALYSIS PATIENTS. CBC (HEMOGRAM ONLY)2018-11-15 05:41:00 Test Item Value Reference Range Comments WHITE BLOOD CELL COUNT (BEAKER) (test uuyo=460) 12.0 K/ L 3.5-10.5 RED BLOOD CELL COUNT (BEAKER) (test hchq=916) 4.34 M/ L 4.63-6.08 HEMOGLOBIN (BEAKER) (test idkr=740) 12.4 GM/DL 13.7-17.5 HEMATOCRIT (BEAKER) (test qotz=963) 37.5 % 40.1-51.0 MEAN CORPUSCULAR VOLUME (BEAKER) (test oehv=066) 86.4 fL 79.0-92.2 MEAN CORPUSCULAR HEMOGLOBIN (BEAKER) (test 28.6 pg 25.7-32.2 jghp=586) MEAN CORPUSCULAR HEMOGLOBIN CONC (BEAKER) (test 33.1 GM/DL 32.3-36.5 iklb=238) RED CELL DISTRIBUTION WIDTH (BEAKER) (test 14.6 % 11.6-14.4 kgtx=270) PLATELET COUNT (BEAKER) (test swnr=715) 373 K/CU MM 150-450 MEAN PLATELET VOLUME (BEAKER) (test rgdg=402) 10.8 fL 9.4-12.4 NUCLEATED RED BLOOD CELLS (BEAKER) (test 0 /100 WBC 0-0 ctrb=122) POCT-GLUCOSE [id number] 02:35:00 Test Item Value Reference Range Comments POC-GLUCOSE METER (BEAKER) 220 mg/dL 70-110 TESTED AT [address] (test plrv=3942) [facility] [address] POCT-GLUCOSE [id number] 16:55:00 Test Item Value Reference Range Comments POC-GLUCOSE METER (BEAKER) 239 mg/dL 70-110 TESTED AT [address] (test egyx=0722) [facility] [address] POCT-GLUCOSE [id number] 12:09:00 Test Item Value Reference Range Comments POC-GLUCOSE METER (BEAKER) 246 mg/dL 70-110 TESTED AT [address] (test qqdi=6502) [place] [id number] BASIC METABOLIC [id number] 05:52:00 Test Item Value Reference Range Comments SODIUM (BEAKER) (test 137 meq/L 136-145 wfrm=516) POTASSIUM (BEAKER) (test 4.2 meq/L 3.5-5.1 ngos=218) CHLORIDE (BEAKER) (test 101 meq/L 98-107 wjag=512) CO2 (BEAKER) (test 29 meq/L 22-29 qxml=257) BLOOD UREA NITROGEN 26 mg/dL 7-21 (BEAKER) (test wmbj=185) CREATININE (BEAKER) (test 0.93 mg/dL 0.57-1.25 ufdf=187) GLUCOSE RANDOM (BEAKER) 209 mg/dL 70-105 (test qwho=787) CALCIUM (BEAKER) (test 9.7 mg/dL 8.4-10.2 yetw=166) EGFR (BEAKER) (test 80 mL/min/1.73 sq m ESTIMATED GFR IS NOT bhwl=2148) ACCURATE CREATININE CLEARANCE IN PREDICTING GLOMERULAR FILTRATION RATE. ESTIMATED GFR IS NOT APPLICABLE FOR DIALYSIS PATIENTS. POCT-GLUCOSE [id number] 05:37:00 Test Item Value Reference Range Comments POC-GLUCOSE METER (BEAKER) 181 mg/dL 70-110 TESTED AT [address] (test mlbu=8873) [place] [address] CBC (HEMOGRAM ONLY)2018-11-14 05:37:00 Test Item Value Reference Range Comments WHITE BLOOD CELL COUNT (BEAKER) (test fjvm=969) 10.7 K/ L 3.5-10.5 RED BLOOD CELL COUNT (BEAKER) (test wfey=834) 4.16 M/ L 4.63-6.08 HEMOGLOBIN (BEAKER) (test txqc=019) 11.8 GM/DL 13.7-17.5 HEMATOCRIT (BEAKER) (test pzom=161) 36.1 % 40.1-51.0 MEAN CORPUSCULAR VOLUME (BEAKER) (test ldea=774) 86.8 fL 79.0-92.2 MEAN CORPUSCULAR HEMOGLOBIN (BEAKER) (test 28.4 pg 25.7-32.2 ldxy=359) MEAN CORPUSCULAR HEMOGLOBIN CONC (BEAKER) (test 32.7 GM/DL 32.3-36.5 letm=428) RED CELL DISTRIBUTION WIDTH (BEAKER) (test 14.6 % 11.6-14.4 fckp=953) PLATELET COUNT (BEAKER) (test vcfo=177) 331 K/CU MM 150-450 MEAN PLATELET VOLUME (BEAKER) (test ecln=414) 10.5 fL 9.4-12.4 NUCLEATED RED BLOOD CELLS (BEAKER) (test 0 /100 WBC 0-0 wlni=145) POCT-GLUCOSE [id number] 00:10:00 Test Item Value Reference Range Comments POC-GLUCOSE METER (BEAKER) 225 mg/dL 70-110 TESTED AT [address] (test crdu=2411) [place] [address] POCT-GLUCOSE [id number] 17:58:00 Test Item Value Reference Range Comments POC-GLUCOSE METER (BEAKER) 221 mg/dL 70-110 TESTED AT [address] (test ohfx=9958) [place] [address] CT, SPINE, CERVICAL, WO [id number] 15:33:00FINAL REPORT EXAM: CERVICAL SPINE CT WITHOUT CONTRAST [...] dose to as low as reasonably achievable. FINDINGS:There is no fracture or traumatic malalignment. The occipital condyles are intact andnormally seated. The atlantodental interval is preserved. Mild [...] stenosis. No fracture or traumatic malalignment. Signed: Klinglesmith, JR, Keenan MDReport Verified Date/ Time: 11/13/2018 15:33:48 [facility] [place] [facility] Reading Room CT, BRAIN, WITHOUT [id number] 15:22:00FINAL REPORT CT head without contrast. Reason for [...] amount of petechial hemorrhage. Signed: Bethany Parker MDReport Verified Date/Time: 11/13/2018 15:22:34 Reading Location: [facility] [id number] Consult Reading Room POCT-GLUCOSE [id number] 12:10:00 Test Item Value Reference Range Comments POC-GLUCOSE METER (BEAKER) 218 mg/dL 70-110 TESTED AT [address] (test ramn=8236) [facility] [address] BASIC METABOLIC [id number] 08:05:00 Test Item Value Reference Range Comments SODIUM (BEAKER) (test 135 meq/L 136-145 vthi=078) POTASSIUM (BEAKER) (test 4.7 meq/L 3.5-5.1 qyuy=399) CHLORIDE (BEAKER) (test 101 meq/L 98-107 jdsr=810) CO2 (BEAKER) (test 28 meq/L 22-29 ohlz=360) BLOOD UREA NITROGEN 21 mg/dL 7-21 (BEAKER) (test wqqi=619) CREATININE (BEAKER) (test 0.87 mg/dL 0.57-1.25 siaf=049) GLUCOSE RANDOM (BEAKER) 206 mg/dL 70-105 (test cotx=957) CALCIUM (BEAKER) (test 9.8 mg/dL 8.4-10.2 adgw=367) EGFR (BEAKER) (test 87 mL/min/1.73 sq m ESTIMATED GFR IS NOT xoco=9916) ACCURATE CREATININE CLEARANCE IN PREDICTING GLOMERULAR FILTRATION RATE. ESTIMATED GFR IS NOT APPLICABLE FOR DIALYSIS PATIENTS. CBC W/PLT COUNT & AUTO [id number] 08:02:00 Test Item Value Reference Range Comments WHITE BLOOD CELL COUNT (BEAKER) (test dulj=949) 13.4 K/ L 3.5-10.5 RED BLOOD CELL COUNT (BEAKER) (test nebf=831) 4.20 M/ L 4.63-6.08 HEMOGLOBIN (BEAKER) (test kgoz=750) 11.9 GM/DL 13.7-17.5 HEMATOCRIT (BEAKER) (test gaay=436) 36.1 % 40.1-51.0 MEAN CORPUSCULAR VOLUME (BEAKER) (test hdag=915) 86.0 fL 79.0-92.2 MEAN CORPUSCULAR HEMOGLOBIN (BEAKER) (test 28.3 pg 25.7-32.2 xfyx=029) MEAN CORPUSCULAR HEMOGLOBIN CONC (BEAKER) (test 33.0 GM/DL 32.3-36.5 wulj=704) RED CELL DISTRIBUTION WIDTH (BEAKER) (test 14.6 % 11.6-14.4 lnaf=418) PLATELET COUNT (BEAKER) (test hpvp=582) 333 K/CU MM 150-450 MEAN PLATELET VOLUME (BEAKER) (test hrca=934) 10.3 fL 9.4-12.4 NUCLEATED RED BLOOD CELLS (BEAKER) (test 0 /100 WBC 0-0 pvae=662) NEUTROPHILS RELATIVE PERCENT (BEAKER) (test 80 % kkyj=812) LYMPHOCYTES RELATIVE PERCENT (BEAKER) (test 11 % uqsn=876) MONOCYTES RELATIVE PERCENT (BEAKER) (test 6 % klix=231) EOSINOPHILS RELATIVE PERCENT (BEAKER) (test 3 % vdmn=653) BASOPHILS RELATIVE PERCENT (BEAKER) (test 0 % uhte=790) NEUTROPHILS ABSOLUTE COUNT (BEAKER) (test 10.63 K/ L 1.78-5.38 wuil=107) LYMPHOCYTES ABSOLUTE COUNT (BEAKER) (test 1.52 K/ L 1.32-3.57 qmmd=747) MONOCYTES ABSOLUTE COUNT (BEAKER) (test 0.76 K/ L 0.30-0.82 jefv=080) EOSINOPHILS ABSOLUTE COUNT (BEAKER) (test 0.35 K/ L 0.04-0.54 iuec=315) BASOPHILS ABSOLUTE COUNT (BEAKER) (test 0.04 K/ L 0.01-0.08 paor=087) IMMATURE GRANULOCYTES-RELATIVE PERCENT (BEAKER) 1 % 0-1 (test esdm=3125) POCT-GLUCOSE [id number] 05:35:00 Test Item Value Reference Range Comments POC-GLUCOSE METER (BEAKER) 190 mg/dL 70-110 TESTED AT [address] (test cyaa=2102) [place] [id number] POCT-GLUCOSE [id number] 00:25:00 Test Item Value Reference Range Comments POC-GLUCOSE METER (BEAKER) 193 mg/dL 70-110 TESTED AT [address] (test wopi=7002) [facility] [address] POCT-GLUCOSE [id number] 18:09:00 Test Item Value Reference Range Comments POC-GLUCOSE METER (BEAKER) 204 mg/dL 70-110 TESTED AT [address] (test geap=8962) [place] [address] CORDELIA, CAROTID STENT W [id number] 14:42:00Reason for exam:->R carotid stent for carotid stenosisFINAL REPORT DATE OF PROCEDURE: 11/07/2018 SURGEON: Garrett Echevarria M.D. CONVEYOR MAN: Lon Lopez MD PREOPERATIVE DIAGNOSIS: Right hemispheric stroke with severe right carotid artery stenosis POST OPERATIVE DIAGNOSIS: Right hemispheric stroke with severe right carotid artery stenosis OPERATION: 1) Cerebral Angiogram2) right carotid stent IMPLANTS: Precise Pro Stent [id number] stent 8-6 x 40 ANESTHESIA: Moderate sedation ESTIMATED BLOOD LOSS: Less than 30 mL COMPLICATIONS: None INDICATIONS: The patient is a 67 years old Male who presented with a right MCA distribution ischemic stroke. He was identified on tomographic imaging to have severe right carotid stenosis. Hewas loaded on dual antiplatelet therapy and brought back for carotid stent placement. PROCEDURE AND ENDOVASCULAR INTERVENTION: Following explanation of the benefits, risks and alternatives for the procedure, informed consent was obtained from the patient. The risks including but not limited to stroke, intracranial hemorrhage , vascular injury to the cervical or femoral vessels and groin hematoma were discussed with the patient. A time-out was performed. Both groins were prepped in the usual sterile fashion using Chloraprep, and sterilely draped. A standard access was performed using a micropuncture kit on the right side to access the right common femoral artery. Serial dilation was performedand then a 9 Spanish short sheath was placed in the right common femoral artery and placed on heparinized flush. Angiography was performed via the sheath confirmed satisfactory placement. A 5 Spanish diagnostic glide catheter was then used to catheterize the right common carotid artery. The catheter wasthen advanced into the distal external carotid artery [...] then inflated under active fluoroscopy. An additional doseof heparin was given. The stenotic segment of the internal carotid artery was identified using angiography. Under roadmap guidance, the lesion was crossed with a Synchro standard wire and an SL 10 microcatheter was used to advance across the plaque and positioned in the petrous segment of the internalcarotid artery. The microwire was then exchanged for [...] Moma system for a total of 30cc. Thisaspirate was filtered and checked for plaques. Plaque was found on the first two aspirations and thethird was found be completely clear. The balloons were then deflated with the external balloon firstand then the common carotid artery balloon. Post stenting, an angiogram of the cervical carotid was performed demonstrating mild stenosis on the order of 40% and satisfactory positioning of the stent. A repeat whole head angiogram demonstrated no evidence of branch occlusions or slow filling branches,and no other untoward findings. FINDINGS: RIGHT COMMON FEMORAL ARTERY (DSA - PA, LATERAL - ILIAC)The sheath enters above the femoral bifurcation. There is atherosclerotic disease of the common femoral artery below the level of sheath entry. 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 The dilation measures 2.9 cm. RIGHT COMMON CAROTID ARTERY (DSA - PA, LATERAL - CERVICAL) There is severe stenosis of the right internal carotid artery proximally aswell as the dorsal wall of the distal common carotid artery. The irregular segment measures 3.5 cm across. The most stenotic portion results in a string sign, 1.4 cm distal to the bifurcation. Distal to that, there is wall irregularity before reaching a normal vessel caliber. The most stenotic segmentis less than 1 mm and the normal [...] without evidence of ulceration or stenosis. There ispreferential filling through the external carotid artery branches [...] and 8-6 x 40 Xact carotid stent Noimmediate technical or clinical complications. Signed: Garrett Echevarria MDReport Verified Date/Time: 2018 14:42:01 Reading Location: [place] [address] Neuro Angio Reading Room NV, ANGIOGRAM, [id number] 14:41:00Reason for exam:->right ICA stenosisFINAL REPORT DATE OF PROCEDURE: November 05, 2018 SURGEON: Garrett Echevarria M.D. FIRSTASSISTANT: Lon Lopez MD PREOPERATIVE DIAGNOSIS: Right carotid [...] were prepped in the usual sterile fashion usingChloraprep, and sterilely draped. The skin over the [...] carotid arteries, and the left vertebral artery werecatheterized. Upon each successive selective catheterization, digital subtraction [...] removed and hemostasis was achieved with a 6-Spanish AngioSeal closuredevice. The patient tolerated the procedure well and [...] dilation measures 2.9 cm. LEFT VERTEBRAL ARTERY ( DSA - PA, LATERAL - HEAD) The left vertebral artery is patent without significant stenotic lesion. There is a stenotic lesion of the mid basilar arteryat the level of the anterior inferior cerebellar [...] the vertebrobasilar system. The venous phase shows patentbilateral transverse and sigmoid sinuses. RIGHT COMMON CAROTID [...] There is a small size posterior communicating artery.There is no anterograde filling through the anterior cerebral artery. No vascular malformation or arteriovenous shunting is noted. No stenosis or vasospasm is observed. No significant abnormalities areseen in the capillary and venous phases. The [...] arteries are widely patent without evidence of ulcerationor stenosis. There is a small plaque on the anterior wall of the internal carotid artery 1 cm distalto the bifurcation. LEFT COMMON CAROTID ARTERY (DSA [...] phase is normal. SUPERVISION AND INTERPRETATION: Angiographic studydemonstrates: 1. Severe right carotid stenosis, 85% 2. Collateral circulation to the right internal carotid artery via left ICA and anterior commuting artery. No immediate technical or clinical complications. Signed: Garrett Echevarria MDReport Verified Date/Time: 11/12/2018 14:41 :58 Reading Location: [facility] [id number] Neuro Angio Reading Room POCT-GLUCOSE [id number] 12:37:00 Test Item Value Reference Range Comments POC-GLUCOSE METER (BEAKER) 157 mg/dL 70-110 TESTED AT [address] (test ogih=5063) [facility] [address] POCT-GLUCOSE [id number] 06:41:00 Test Item Value Reference Range Comments POC-GLUCOSE METER (BEAKER) 176 mg/dL 70-110 TESTED AT [address] (test pwac=3633) [facility] [address] BASIC METABOLIC [id number] 06:30:00 Test Item Value Reference Range Comments SODIUM (BEAKER) (test 133 meq/L 136-145 xymh=177) POTASSIUM (BEAKER) (test 4.3 meq/L 3.5-5.1 eoef=188) CHLORIDE (BEAKER) (test 101 meq/L 98-107 txax=656) CO2 (BEAKER) (test 25 meq/L 22-29 rmct=756) BLOOD UREA NITROGEN 18 mg/dL 7-21 (BEAKER) (test wmiu=877) CREATININE (BEAKER) (test 0.81 mg/dL 0.57-1.25 chsv=057) GLUCOSE RANDOM (BEAKER) 180 mg/dL 70-105 (test sgol=730) CALCIUM (BEAKER) (test 9.4 mg/dL 8.4-10.2 mdkm=828) EGFR (BEAKER) (test 94 mL/min/1.73 sq m ESTIMATED GFR IS NOT nlbh=3501) ACCURATE CREATININE CLEARANCE IN PREDICTING GLOMERULAR FILTRATION RATE. ESTIMATED GFR IS NOT APPLICABLE FOR DIALYSIS PATIENTS. CBC (HEMOGRAM ONLY)2018-11-12 05:08:00 Test Item Value Reference Range Comments WHITE BLOOD CELL COUNT (BEAKER) (test exmk=118) 13.4 K/ L 3.5-10.5 RED BLOOD CELL COUNT (BEAKER) (test pjiu=012) 3.94 M/ L 4.63-6.08 HEMOGLOBIN (BEAKER) (test wpxq=590) 11.3 GM/DL 13.7-17.5 HEMATOCRIT (BEAKER) (test xjzl=502) 33.9 % 40.1-51.0 MEAN CORPUSCULAR VOLUME (BEAKER) (test aeap=396) 86.0 fL 79.0-92.2 MEAN CORPUSCULAR HEMOGLOBIN (BEAKER) (test 28.7 pg 25.7-32.2 mgog=451) MEAN CORPUSCULAR HEMOGLOBIN CONC (BEAKER) (test 33.3 GM/DL 32.3-36.5 kyim=892) RED CELL DISTRIBUTION WIDTH (BEAKER) (test 14.6 % 11.6-14.4 ihjn=899) PLATELET COUNT (BEAKER) (test yjpt=270) 298 K/CU MM 150-450 MEAN PLATELET VOLUME (BEAKER) (test ryiv=673) 10.1 fL 9.4-12.4 NUCLEATED RED BLOOD CELLS (BEAKER) (test 0 /100 WBC 0-0 ubsv=279) POCT-GLUCOSE [id number] 00:14:00 Test Item Value Reference Range Comments POC-GLUCOSE METER (BEAKER) 199 mg/dL 70-110 TESTED AT [address] (test ybgf=2950) [place] [address] POCT-GLUCOSE [id number] 17:13:00 Test Item Value Reference Range Comments POC-GLUCOSE METER (BEAKER) 221 mg/dL 70-110 TESTED AT [address] (test wseh=7349) [place] [address] POCT-GLUCOSE [id number] 12:47:00 Test Item Value Reference Range Comments POC-GLUCOSE METER (BEAKER) 184 mg/dL 70-110 TESTED AT [address] (test klcn=2177) [place] [address] BASIC METABOLIC [id number] 06:22:00 Test Item Value Reference Range Comments SODIUM (BEAKER) (test 137 meq/L 136-145 npyh=521) POTASSIUM (BEAKER) (test 4.3 meq/L 3.5-5.1 cbua=871) CHLORIDE (BEAKER) (test 103 meq/L 98-107 pgmk=884) CO2 (BEAKER) (test 25 meq/L 22-29 fzap=244) BLOOD UREA NITROGEN 22 mg/dL 7-21 (BEAKER) (test pxyo=042) CREATININE (BEAKER) (test 0.82 mg/dL 0.57-1.25 kjlg=647) GLUCOSE RANDOM (BEAKER) 168 mg/dL 70-105 (test qrly=052) CALCIUM (BEAKER) (test 9.3 mg/dL 8.4-10.2 rtuv=815) EGFR (BEAKER) (test 93 mL/min/1.73 sq m ESTIMATED GFR IS NOT jles=2513) ACCURATE CREATININE CLEARANCE IN PREDICTING GLOMERULAR FILTRATION RATE. ESTIMATED GFR IS NOT APPLICABLE FOR DIALYSIS PATIENTS. POCT-GLUCOSE [id number] 06:07:00 Test Item Value Reference Range Comments POC-GLUCOSE METER (BEAKER) 183 mg/dL 70-110 TESTED AT [address] (test kdve=8042) [place] [address] CBC (HEMOGRAM ONLY)2018-11-11 05:13:00 Test Item Value Reference Range Comments WHITE BLOOD CELL COUNT (BEAKER) (test etse=979) 15.3 K/ L 3.5-10.5 RED BLOOD CELL COUNT (BEAKER) (test lmsv=627) 4.19 M/ L 4.63-6.08 HEMOGLOBIN (BEAKER) (test nvqs=551) 12.0 GM/DL 13.7-17.5 HEMATOCRIT (BEAKER) (test ypxm=672) 36.2 % 40.1-51.0 MEAN CORPUSCULAR VOLUME (BEAKER) (test dzhw=201) 86.4 fL 79.0-92.2 MEAN CORPUSCULAR HEMOGLOBIN (BEAKER) (test 28.6 pg 25.7-32.2 mace=541) MEAN CORPUSCULAR HEMOGLOBIN CONC (BEAKER) (test 33.1 GM/DL 32.3-36.5 rpji=236) RED CELL DISTRIBUTION WIDTH (BEAKER) (test 14.7 % 11.6-14.4 xrba=337) PLATELET COUNT (BEAKER) (test fgps=185) 287 K/CU MM 150-450 MEAN PLATELET VOLUME (BEAKER) (test vpfl=182) 10.5 fL 9.4-12.4 NUCLEATED RED BLOOD CELLS (BEAKER) (test 0 /100 WBC 0-0 vnkh=647) POCT-GLUCOSE [id number] 00:14:00 Test Item Value Reference Range Comments POC-GLUCOSE METER (BEAKER) 176 mg/dL 70-110 TESTED AT [address] (test uple=1623) [place] [id number] POCT-GLUCOSE [id number] 17:43:00 Test Item Value Reference Range Comments POC-GLUCOSE METER (BEAKER) 195 mg/dL 70-110 TESTED AT [address] (test utgh=0347) [facility] [address] POCT-GLUCOSE [id number] 12:08:00 Test Item Value Reference Range Comments POC-GLUCOSE METER (BEAKER) 170 mg/dL 70-110 TESTED AT [address] (test glot=3853) [facility] [address] BASIC METABOLIC [id number] 07:13:00 Test Item Value Reference Range Comments SODIUM (BEAKER) (test 135 meq/L 136-145 yody=526) POTASSIUM (BEAKER) (test 4.0 meq/L 3.5-5.1 dyfa=637) CHLORIDE (BEAKER) (test 105 meq/L 98-107 eypf=595) CO2 (BEAKER) (test 22 meq/L 22-29 tpie=422) BLOOD UREA NITROGEN 18 mg/dL 7-21 (BEAKER) (test uofy=077) CREATININE (BEAKER) (test 0.82 mg/dL 0.57-1.25 aeni=994) GLUCOSE RANDOM (BEAKER) 163 mg/dL 70-105 (test xccf=582) CALCIUM (BEAKER) (test 9.4 mg/dL 8.4-10.2 yaul=642) EGFR (BEAKER) (test 93 mL/min/1.73 sq m ESTIMATED GFR IS NOT nbpg=1685) ACCURATE CREATININE CLEARANCE IN PREDICTING GLOMERULAR FILTRATION RATE. ESTIMATED GFR IS NOT APPLICABLE FOR DIALYSIS PATIENTS. POCT-GLUCOSE [id number] 06:08:00 Test Item Value Reference Range Comments POC-GLUCOSE METER (BEAKER) 178 mg/dL 70-110 TESTED AT [address] (test mljz=3348) [facility] [address] CBC (HEMOGRAM ONLY)2018 05:55:00 Test Item Value Reference Range Comments WHITE BLOOD CELL COUNT (BEAKER) (test tptg=855) 15.6 K/ L 3.5-10.5 RED BLOOD CELL COUNT (BEAKER) (test mhrw=196) 4.18 M/ L 4.63-6.08 HEMOGLOBIN (BEAKER) (test kcah=887) 11.9 GM/DL 13.7-17.5 HEMATOCRIT (BEAKER) (test aehd=058) 35.8 % 40.1-51.0 MEAN CORPUSCULAR VOLUME (BEAKER) (test jtnp=500) 85.6 fL 79.0-92.2 MEAN CORPUSCULAR HEMOGLOBIN (BEAKER) (test 28.5 pg 25.7-32.2 uovc=423) MEAN CORPUSCULAR HEMOGLOBIN CONC (BEAKER) (test 33.2 GM/DL 32.3-36.5 dnnf=848) RED CELL DISTRIBUTION WIDTH (BEAKER) (test 14.6 % 11.6-14.4 ijnt=737) PLATELET COUNT (BEAKER) (test vrby=922) 292 K/CU MM 150-450 MEAN PLATELET VOLUME (BEAKER) (test buwg=934) 10.5 fL 9.4-12.4 NUCLEATED RED BLOOD CELLS (BEAKER) (test 0 /100 WBC 0-0 myhi=247) POCT-GLUCOSE [id number] 01:11:00 Test Item Value Reference Range Comments POC-GLUCOSE METER (BEAKER) 160 mg/dL 70-110 TESTED AT [address] (test bgud=9413) [facility] [address] POCT-GLUCOSE [id number] 12:18:00 Test Item Value Reference Range Comments POC-GLUCOSE METER (BEAKER) 147 mg/dL 70-110 TESTED AT [address] (test yvkd=5539) [facility] [address] POCT-GLUCOSE [id number] 08:20:00 Test Item Value Reference Range Comments POC-GLUCOSE METER (BEAKER) 155 mg/dL 70-110 TESTED AT [address] (test asvz=4117) [facility] [address] BASIC METABOLIC [id number] 06:07:00 Test Item Value Reference Range Comments SODIUM (BEAKER) (test 135 meq/L 136-145 bqmu=223) POTASSIUM (BEAKER) (test 4.3 meq/L 3.5-5.1 jbmm=746) CHLORIDE (BEAKER) (test 106 meq/L 98-107 ofwa=744) CO2 (BEAKER) (test 20 meq/L 22-29 fnkm=972) BLOOD UREA NITROGEN 18 mg/dL 7-21 (BEAKER) (test drzy=743) CREATININE (BEAKER) (test 0.82 mg/dL 0.57-1.25 vggw=784) GLUCOSE RANDOM (BEAKER) 161 mg/dL 70-105 (test vlcd=082) CALCIUM (BEAKER) (test 9.1 mg/dL 8.4-10.2 tfks=328) EGFR (BEAKER) (test 93 mL/min/1.73 sq m ESTIMATED GFR IS NOT cook=2211) ACCURATE CREATININE CLEARANCE IN PREDICTING GLOMERULAR FILTRATION RATE. ESTIMATED GFR IS NOT APPLICABLE FOR DIALYSIS PATIENTS. CBC (HEMOGRAM ONLY)2018-11-09 05:28:00 Test Item Value Reference Range Comments WHITE BLOOD CELL COUNT (BEAKER) (test bhef=538) 12.9 K/ L 3.5-10.5 RED BLOOD CELL COUNT (BEAKER) (test pony=418) 3.99 M/ L 4.63-6.08 HEMOGLOBIN (BEAKER) (test znby=318) 11.5 GM/DL 13.7-17.5 HEMATOCRIT (BEAKER) (test awqk=898) 33.8 % 40.1-51.0 MEAN CORPUSCULAR VOLUME (BEAKER) (test imyj=401) 84.7 fL 79.0-92.2 MEAN CORPUSCULAR HEMOGLOBIN (BEAKER) (test 28.8 pg 25.7-32.2 kzfw=545) MEAN CORPUSCULAR HEMOGLOBIN CONC (BEAKER) (test 34.0 GM/DL 32.3-36.5 zpeq=681) RED CELL DISTRIBUTION WIDTH (BEAKER) (test 14.3 % 11.6-14.4 qekh=202) PLATELET COUNT (BEAKER) (test dpwo=182) 252 K/CU MM 150-450 MEAN PLATELET VOLUME (BEAKER) (test xuqn=449) 10.0 fL 9.4-12.4 NUCLEATED RED BLOOD CELLS (BEAKER) (test 0 /100 WBC 0-0 nobh=248) POCT-GLUCOSE [id number] 23:57:00 Test Item Value Reference Range Comments POC-GLUCOSE METER (BEAKER) 140 mg/dL 70-110 TESTED AT [address] (test jymg=9889) [place] [id number] POCT-GLUCOSE [id number] 17:30:00 Test Item Value Reference Range Comments POC-GLUCOSE METER (BEAKER) 127 mg/dL 70-110 TESTED AT [address] (test lknw=0551) [place] [id number] POCT-GLUCOSE [id number] 11:54:00 Test Item Value Reference Range Comments POC-GLUCOSE METER (BEAKER) 133 mg/dL 70-110 TESTED AT [address] (test ciwx=8438) [place] [address] POCT-GLUCOSE [id number] 06:37:00 Test Item Value Reference Range Comments POC-GLUCOSE METER (BEAKER) 110 mg/dL 70-110 TESTED AT [address] (test ibyu=3043) [facility] [address] BASIC METABOLIC [id number] 06:28:00 Test Item Value Reference Range Comments SODIUM (BEAKER) (test 136 meq/L 136-145 qsdo=435) POTASSIUM (BEAKER) (test 4.4 meq/L 3.5-5.1 oqrb=677) CHLORIDE (BEAKER) (test 110 meq/L 98-107 fbie=043) CO2 (BEAKER) (test 20 meq/L 22-29 tfpj=929) BLOOD UREA NITROGEN 15 mg/dL 7-21 (BEAKER) (test nigk=009) CREATININE (BEAKER) (test 0.74 mg/dL 0.57-1.25 mzer=628) GLUCOSE RANDOM (BEAKER) 112 mg/dL 70-105 (test edxk=930) CALCIUM (BEAKER) (test 8.5 mg/dL 8.4-10.2 byfi=690) EGFR (BEAKER) (test 105 mL/min/1.73 sq m ESTIMATED GFR IS NOT uoyx=5026) ACCURATE CREATININE CLEARANCE IN PREDICTING GLOMERULAR FILTRATION RATE. ESTIMATED GFR IS NOT APPLICABLE FOR DIALYSIS PATIENTS. CBC (HEMOGRAM ONLY)2018-11-08 05:44:00 Test Item Value Reference Range Comments WHITE BLOOD CELL COUNT (BEAKER) (test uzlx=152) 11.0 K/ L 3.5-10.5 RED BLOOD CELL COUNT (BEAKER) (test afgl=493) 3.99 M/ L 4.63-6.08 HEMOGLOBIN (BEAKER) (test hotw=292) 11.5 GM/DL 13.7-17.5 HEMATOCRIT (BEAKER) (test yjfe=658) 34.2 % 40.1-51.0 MEAN CORPUSCULAR VOLUME (BEAKER) (test jiva=206) 85.7 fL 79.0-92.2 MEAN CORPUSCULAR HEMOGLOBIN (BEAKER) (test 28.8 pg 25.7-32.2 ajqs=472) MEAN CORPUSCULAR HEMOGLOBIN CONC (BEAKER) (test 33.6 GM/DL 32.3-36.5 eodc=197) RED CELL DISTRIBUTION WIDTH (BEAKER) (test 14.6 % 11.6-14.4 ylvg=517) PLATELET COUNT (BEAKER) (test odki=814) 256 K/CU MM 150-450 MEAN PLATELET VOLUME (BEAKER) (test feis=994) 10.4 fL 9.4-12.4 NUCLEATED RED BLOOD CELLS (BEAKER) (test 0 /100 WBC 0-0 pbej=442) POCT-GLUCOSE [id number] 01:21:00 Test Item Value Reference Range Comments POC-GLUCOSE METER (BEAKER) 131 mg/dL 70-110 TESTED AT [address] (test ufib=3538) [place] [address] POCT-GLUCOSE [id number] 18:16:00 Test Item Value Reference Range Comments POC-GLUCOSE METER (AKER) 159 mg/dL 70-110 TESTED AT [address] (test mdin=4576) [place] [address] [id number] 15:58:00 Test Item Value Reference Range Comments ACTIVATED CLOTTING TIME 252 sec TESTED AT [address] ([facility]) (test mmcp=964) [place] [address] POCT-GLUCOSE [id number] 13:49:00 Test Item Value Reference Range Comments POC-GLUCOSE METER (BEAKER) 155 mg/dL 70-110 TESTED AT [address] (test tfwq=8762) [place] [address] POCT-P2Y12 PLATELET [id number] 12:44:00 Test Item Value Reference Range Comments POC-P2Y12 PLATELET AGG (BEAKER) (test aucc=1516) 83 PRU RANGE INFORMATION: PRU reference range is 194-418. Post Drug Results: Lower PRU levels are associated with expected antiplatelet effect. Values may be below the stated reference range above. The post-drug PRU values reported in the [employer] P2Y12 package insert are [id number].CT, BRAIN, WITHOUT [id number] 09:26:00FINAL REPORT CT, BRAIN, WITHOUT CONTRAST CLINICAL INDICATION: Neuro deficit(s), subacuteafter starting DAPT in setting of acute large territory stroke - only to be done on 4/10 AM COMPARISON: October TECHNIQUE: Noncontrast axial CT imaging of the brain and skull. DOSE REDUCTION: Dose modulation, iterative reconstruction, and/or weight-based adjustment of the mA/kV was utilized to reduce the radiation dose to as low as reasonably achievable. 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 There is a moderate high degree of edema in the affected sulci creating hyperattenuation along the sulcal surfaces. Appearance is compatible with pseudosubarachnoid hemorrhage. Petechial hemorrhages are not excluded, but not definitely identified. Small right temporal hemorrhagic lesion has decreased in conspicuity since the prior examination (annotated on image 11). No new hemorrhages developed. There is no midline shift or hydrocephalus. Osseous structures are intact. IMPRESSION: Involving right MCA territory infarct. Diffuse edema with pseudocyst subarachnoidhemorrhage. Hemorrhages are not excluded. Short-term follow-up is advised. Continuing evolution of hemorrhagic lesion in the right temporal lobe without extension or expansion. If there is persistent clinical concern for intracranial pathology, MR examination is recommended for further characterization. Signed: JR Stein Robert MDReport Verified Date/Time: 11/07/2018 09:26:55 Reading Location: [address] Neuro Reading Room POCT-GLUCOSE [id number] 06:41:00 Test Item Value Reference Range Comments POC-GLUCOSE METER (BEAKER) 186 mg/dL 70-110 TESTED AT [address] (test koqc=[id number]) [facility] [address] POCT-P2Y12 PLATELET [id number] 06:16:00 Test Item Value Reference Range Comments POC-P2Y12 PLATELET AGG (BEAKER) (test cnni=9393) 247 PRU RANGE INFORMATION: PRU reference range is 194-418. Post Drug Results: Lower PRU levels are associated with expected antiplatelet effect. Values may be below the stated reference range above. The post-drug PRU values reported in the [employer] P2Y12 package insert are [id number].BASIC METABOLIC [id number] 06:01: 00 Test Item Value Reference Range Comments SODIUM (BEAKER) (test 134 meq/L 136-145 tgnb=002) POTASSIUM (BEAKER) (test 4.3 meq/L 3.5-5.1 fqxz=007) CHLORIDE (BEAKER) (test 108 meq/L 98-107 hgaf=558) CO2 (BEAKER) (test 19 meq/L 22-29 rwkd=394) BLOOD UREA NITROGEN 15 mg/dL 7-21 (BEAKER) (test yepb=343) CREATININE (BEAKER) (test 0.82 mg/dL 0.57-1.25 hvpj=453) GLUCOSE RANDOM (BEAKER) 200 mg/dL 70-105 (test pyqr=410) CALCIUM (BEAKER) (test 9.1 mg/dL 8.4-10.2 qeny=565) EGFR (BEAKER) (test 93 mL/min/1.73 sq m ESTIMATED GFR IS NOT bgvx=2655) ACCURATE CREATININE CLEARANCE IN PREDICTING GLOMERULAR FILTRATION RATE. ESTIMATED GFR IS NOT APPLICABLE FOR DIALYSIS PATIENTS. CBC (HEMOGRAM ONLY)2018-11-07 05:38:00 Test Item Value Reference Range Comments WHITE BLOOD CELL COUNT (BEAKER) (test mvma=864) 9.3 K/ L 3.5-10.5 RED BLOOD CELL COUNT (BEAKER) (test aonq=293) 4.28 M/ L 4.63-6.08 HEMOGLOBIN (BEAKER) (test afna=958) 12.3 GM/DL 13.7-17.5 HEMATOCRIT (BEAKER) (test oyht=322) 37.2 % 40.1-51.0 MEAN CORPUSCULAR VOLUME (BEAKER) (test wdtc=370) 86.9 fL 79.0-92.2 MEAN CORPUSCULAR HEMOGLOBIN (BEAKER) (test 28.7 pg 25.7-32.2 pbuh=454) MEAN CORPUSCULAR HEMOGLOBIN CONC (BEAKER) (test 33.1 GM/DL 32.3-36.5 eumq=198) RED CELL DISTRIBUTION WIDTH (BEAKER) (test 14.6 % 11.6-14.4 yyqy=040) PLATELET COUNT (BEAKER) (test cinl=404) 218 K/CU MM 150-450 MEAN PLATELET VOLUME (BEAKER) (test cmjs=114) 10.5 fL 9.4-12.4 NUCLEATED RED BLOOD CELLS (BEAKER) (test 0 /100 WBC 0-0 ckps=032) POCT-GLUCOSE [id number] 23:34:00 Test Item Value Reference Range Comments POC-GLUCOSE METER (BEAKER) 173 mg/dL 70-110 TESTED AT [facility] [address] [facility] (test uujk=0228) [place] [address] RAD, ABDOMEN/KUB, 1 VIEW [id number] 19:42:00Reason for exam:->verify corpak placementShould this be performed at the bedside?->YesFINAL REPORT EXAMINATION: SUPINE ABDOMEN CLINICAL INDICATION: FEEDING TUBE PLACEMENT IMPRESSION: Tip of the feeding tube projects over the right upper abdomen in the region of the gastric pylorus. Bowel gas pattern is overall nonspecific. Moderate to large volume of inspissatedstool is noted in the colon which may reflect a component of dysmotility with constipation. Signed : Shruthi Neumann MDReport Verified Date/Time: 11/06/2018 19:42:40 Reading Location: [address] Reading Room POCT-GLUCOSE [id number] 18:59:00 Test Item Value Reference Range Comments POC-GLUCOSE METER (BEAKER) 143 mg/dL 70-110 TESTED AT [address] (test poqh=3378) [place] [address] POCT-GLUCOSE [id number] 14:46:00 Test Item Value Reference Range Comments POC-GLUCOSE METER (BEAKER) 169 mg/dL 70-110 TESTED AT [address] (test uahi=7995) [place] [address] FL, ESOPH, SWALLOW FUNCTION, WITH CINE OR [id number] 14:10:00Reason for exam:->dysphagiaFINAL REPORT Modified barium swallow with speech pathology History: dysphagiaTechnique: Modified barium swallow was performed in conjunction with speech pathology. Examination utilized various textures of barium. Fluoroscopic observation was performed during swallowing. Total fluoroscopy time: 4.9 minutes Total number of films: 1 IMPRESSION: There is laryngeal penetration withthin and nectar thick liquid barium. There is one episode of laryngeal aspiration with honey thick barium. Please refer to the speech pathology report for further details. Signed: Everton Garces MDReport Verified Date/Time: 11/06/2018 14:10:54 Reading Location: [facility] [id number] [facility] Reading Room [facility] METABOLIC [id number] 06:28:00 Test Item Value Reference Range Comments SODIUM (BEAKER) (test 136 meq/L 136-145 qsid=829) POTASSIUM (BEAKER) (test 4.1 meq/L 3.5-5.1 gfor=741) CHLORIDE (BEAKER) (test 106 meq/L 98-107 ifge=289) CO2 (BEAKER) (test 23 meq/L 22-29 xhmr=217) BLOOD UREA NITROGEN 17 mg/dL 7-21 (BEAKER) (test bjzo=472) CREATININE (BEAKER) (test 0.77 mg/dL 0.57-1.25 lpmy=216) GLUCOSE RANDOM (BEAKER) 215 mg/dL 70-105 (test tkkj=140) CALCIUM (BEAKER) (test 8.9 mg/dL 8.4-10.2 gpff=578) EGFR (BEAKER) (test 100 mL/min/1.73 sq m ESTIMATED GFR IS NOT yekt=2249) ACCURATE CREATININE CLEARANCE IN PREDICTING GLOMERULAR FILTRATION RATE. ESTIMATED GFR IS NOT APPLICABLE FOR DIALYSIS PATIENTS. POCT-GLUCOSE [id number] 06:19:00 Test Item Value Reference Range Comments POC-GLUCOSE METER (BEAKER) 216 mg/dL 70-110 TESTED AT [facility] [address] [facility] (test rknm=1828) [facility] [address] CBC (HEMOGRAM ONLY)2018-11-06 05:54:00 Test Item Value Reference Range Comments WHITE BLOOD CELL COUNT (BEAKER) (test skqh=300) 8.1 K/ L 3.5-10.5 RED BLOOD CELL COUNT (BEAKER) (test zrah=351) 4.33 M/ L 4.63-6.08 HEMOGLOBIN (BEAKER) (test nrjt=985) 12.5 GM/DL 13.7-17.5 HEMATOCRIT (BEAKER) (test fisz=567) 37.2 % 40.1-51.0 MEAN CORPUSCULAR VOLUME (BEAKER) (test ncwr=347) 85.9 fL 79.0-92.2 MEAN CORPUSCULAR HEMOGLOBIN (BEAKER) (test 28.9 pg 25.7-32.2 jwjz=947) MEAN CORPUSCULAR HEMOGLOBIN CONC (BEAKER) (test 33.6 GM/DL 32.3-36.5 lyiv=934) RED CELL DISTRIBUTION WIDTH (BEAKER) (test 14.6 % 11.6-14.4 ulfo=644) PLATELET COUNT (BEAKER) (test qado=471) 215 K/CU MM 150-450 MEAN PLATELET VOLUME (BEAKER) (test wpdl=696) 10.7 fL 9.4-12.4 NUCLEATED RED BLOOD CELLS (BEAKER) (test 0 /100 WBC 0-0 jnqc=599) POCT-GLUCOSE [id number] 01:34:00 Test Item Value Reference Range Comments POC-GLUCOSE METER (BEAKER) 175 mg/dL 70-110 TESTED AT [address] (test yiob=5323) [place] [address] POCT-GLUCOSE [id number] 19:12:00 Test Item Value Reference Range Comments POC-GLUCOSE METER (BEAKER) 150 mg/dL 70-110 TESTED AT [address] (test gzek=3941) [place] [address] POCT-GLUCOSE [id number] 11:28:00 Test Item Value Reference Range Comments POC-GLUCOSE METER (BEAKER) 169 mg/dL 70-110 TESTED AT [address] (test krtb=9393) [place] [address] BASIC METABOLIC [id number] 07:23:00 Test Item Value Reference Range Comments SODIUM (BEAKER) (test 140 meq/L 136-145 klot=211) POTASSIUM (BEAKER) (test 4.1 meq/L 3.5-5.1 pfyl=134) CHLORIDE (BEAKER) (test 105 meq/L 98-107 txal=132) CO2 (BEAKER) (test 27 meq/L 22-29 nnse=675) BLOOD UREA NITROGEN 15 mg/dL 7-21 (BEAKER) (test okya=298) CREATININE (BEAKER) (test 0.78 mg/dL 0.57-1.25 cvby=779) GLUCOSE RANDOM (BEAKER) 156 mg/dL 70-105 (test rfuk=809) CALCIUM (BEAKER) (test 9.3 mg/dL 8.4-10.2 ysey=767) EGFR (BEAKER) (test 99 mL/min/1.73 sq m ESTIMATED GFR IS NOT brxc=1977) ACCURATE CREATININE CLEARANCE IN PREDICTING GLOMERULAR FILTRATION RATE. ESTIMATED GFR IS NOT APPLICABLE FOR DIALYSIS PATIENTS. POCT-GLUCOSE [id number] 06:37:00 Test Item Value Reference Range Comments POC-GLUCOSE METER (BEAKER) 158 mg/dL 70-110 TESTED AT [address] (test zwmz=6532) [place] [id number] 05:42:00 Test Item Value Reference Range Comments PROTIME (BEAKER) (test uczs=064) 12.9 seconds 11.7-14.7 INR (BEAKER) (test qqvf=467) 1.0 <=5.9 PARTIAL THROMBOPLASTIN TIME (BEAKER) (test 35.4 seconds 22.5-36.0 cqcg=075) RECOMMENDED COUMADIN/WARFARIN INR THERAPY RANGESSTANDARD DOSE: 2.0 - 3.0 Includes: PROPHYLAXIS forvenous thrombosis, systemic embolization; TREATMENT for venous thrombosis and/or pulmonary embolus.HIGH RISK: Target INR is 2.5-3.5 for patients with mechanical heart valves.CBC (HEMOGRAM ONLY)2018-11-05 05:29:00 Test Item Value Reference Range Comments WHITE BLOOD CELL COUNT (BEAKER) (test udfp=697) 13.2 K/ L 3.5-10.5 RED BLOOD CELL COUNT (BEAKER) (test krkv=131) 4.77 M/ L 4.63-6.08 HEMOGLOBIN (BEAKER) (test rxmz=149) 13.6 GM/DL 13.7-17.5 HEMATOCRIT (BEAKER) (test rkca=920) 41.6 % 40.1-51.0 MEAN CORPUSCULAR VOLUME (BEAKER) (test lgbf=861) 87.2 fL 79.0-92.2 MEAN CORPUSCULAR HEMOGLOBIN (BEAKER) (test 28.5 pg 25.7-32.2 jiyx=597) MEAN CORPUSCULAR HEMOGLOBIN CONC (BEAKER) (test 32.7 GM/DL 32.3-36.5 hrsu=115) RED CELL DISTRIBUTION WIDTH (BEAKER) (test 14.8 % 11.6-14.4 fmrw=829) PLATELET COUNT (BEAKER) (test yofm=865) 218 K/CU MM 150-450 MEAN PLATELET VOLUME (BEAKER) (test kbmq=461) 11.6 fL 9.4-12.4 NUCLEATED RED BLOOD CELLS (BEAKER) (test 0 /100 WBC 0-0 cuhe=974) POCT-GLUCOSE [id number] 23:19:00 Test Item Value Reference Range Comments POC-GLUCOSE METER (BEAKER) 231 mg/dL 70-110 TESTED AT [facility] [address] [facility] (test kppx=5753) [facility] [address] POCT-GLUCOSE [id number] 18:05:00 Test Item Value Reference Range Comments POC-GLUCOSE METER (BEAKER) 245 mg/dL 70-110 TESTED AT [place] [id number] [facility] (test einl=7953) [facility] [address] POCT-GLUCOSE [id number] 12:49:00 Test Item Value Reference Range Comments POC-GLUCOSE METER (BEAKER) 197 mg/dL 70-110 TESTED AT [address] (test hlqz=4019) [facility] [address] BASIC METABOLIC [id number] 09:31:00 Test Item Value Reference Range Comments SODIUM (BEAKER) (test 137 meq/L 136-145 szsk=997) POTASSIUM (BEAKER) (test 4.2 meq/L 3.5-5.1 ytbl=921) CHLORIDE (BEAKER) (test 104 meq/L 98-107 qurf=483) CO2 (BEAKER) (test 26 meq/L 22-29 uyuk=947) BLOOD UREA NITROGEN 20 mg/dL 7-21 (BEAKER) (test ydpc=574) CREATININE (BEAKER) (test 0.81 mg/dL 0.57-1.25 sadi=168) GLUCOSE RANDOM (BEAKER) 199 mg/dL 70-105 (test blcn=321) CALCIUM (BEAKER) (test 9.0 mg/dL 8.4-10.2 oeph=577) EGFR (BEAKER) (test 94 mL/min/1.73 sq m ESTIMATED GFR IS NOT gmbq=9124) ACCURATE CREATININE CLEARANCE IN PREDICTING GLOMERULAR FILTRATION RATE. ESTIMATED GFR IS NOT APPLICABLE FOR DIALYSIS PATIENTS. CBC (HEMOGRAM ONLY)2018-11-04 06:48:00 Test Item Value Reference Range Comments WHITE BLOOD CELL COUNT (BEAKER) (test deqy=689) 15.7 K/ L 3.5-10.5 RED BLOOD CELL COUNT (BEAKER) (test rsig=725) 4.69 M/ L 4.63-6.08 HEMOGLOBIN (BEAKER) (test kwej=439) 13.4 GM/DL 13.7-17.5 HEMATOCRIT (BEAKER) (test fwfp=170) 41.3 % 40.1-51.0 MEAN CORPUSCULAR VOLUME (BEAKER) (test btyr=737) 88.1 fL 79.0-92.2 MEAN CORPUSCULAR HEMOGLOBIN (BEAKER) (test 28.6 pg 25.7-32.2 dfdb=764) MEAN CORPUSCULAR HEMOGLOBIN CONC (BEAKER) (test 32.4 GM/DL 32.3-36.5 jzmv=023) RED CELL DISTRIBUTION WIDTH (BEAKER) (test 15.1 % 11.6-14.4 ixjx=987) PLATELET COUNT (BEAKER) (test ykjm=393) 180 K/CU MM 150-450 MEAN PLATELET VOLUME (BEAKER) (test uvpf=157) 11.7 fL 9.4-12.4 NUCLEATED RED BLOOD CELLS (BEAKER) (test 0 /100 WBC 0-0 dmuc=255) POCT-GLUCOSE [id number] 23:44:00 Test Item Value Reference Range Comments POC-GLUCOSE METER (BEAKER) 187 mg/dL 70-110 TESTED AT [address] (test bskl=7395) [place] [id number] POCT-GLUCOSE [id number] 17:30:00 Test Item Value Reference Range Comments POC-GLUCOSE METER (BEAKER) 231 mg/dL 70-110 TESTED AT [address] (test ijsy=7069) [facility] [address] POCT-GLUCOSE [id number] 12:40:00 Test Item Value Reference Range Comments POC-GLUCOSE METER (BEAKER) 205 mg/dL 70-110 TESTED AT [address] (test srzp=9114) [facility] [address] BASIC METABOLIC [id number] 08:48:00 Test Item Value Reference Range Comments SODIUM (BEAKER) (test 138 meq/L 136-145 qeou=461) POTASSIUM (BEAKER) (test 3.9 meq/L 3.5-5.1 rfou=071) CHLORIDE (BEAKER) (test 107 meq/L 98-107 xkbt=529) CO2 (BEAKER) (test 24 meq/L 22-29 jpaw=417) BLOOD UREA NITROGEN 19 mg/dL 7-21 (BEAKER) (test yyez=148) CREATININE (BEAKER) (test 0.80 mg/dL 0.57-1.25 hdqh=118) GLUCOSE RANDOM (BEAKER) 149 mg/dL 70-105 (test ugcp=741) CALCIUM (BEAKER) (test 8.8 mg/dL 8.4-10.2 rwue=193) EGFR (BEAKER) (test 96 mL/min/1.73 sq m ESTIMATED GFR IS NOT kbtw=1394) ACCURATE CREATININE CLEARANCE IN PREDICTING GLOMERULAR FILTRATION RATE. ESTIMATED GFR IS NOT APPLICABLE FOR DIALYSIS PATIENTS. POCT-GLUCOSE [id number] 06:30:00 Test Item Value Reference Range Comments POC-GLUCOSE METER (BEAKER) 153 mg/dL 70-110 TESTED AT [address] (test shfw=1373) [facility] [address] CBC (HEMOGRAM ONLY)2018-11-03 05:19:00 Test Item Value Reference Range Comments WHITE BLOOD CELL COUNT (BEAKER) (test pkji=587) 12.3 K/ L 3.5-10.5 RED BLOOD CELL COUNT (BEAKER) (test hrtp=548) 4.24 M/ L 4.63-6.08 HEMOGLOBIN (BEAKER) (test dgzm=415) 12.1 GM/DL 13.7-17.5 HEMATOCRIT (BEAKER) (test ogqb=322) 37.0 % 40.1-51.0 MEAN CORPUSCULAR VOLUME (BEAKER) (test nhib=610) 87.3 fL 79.0-92.2 MEAN CORPUSCULAR HEMOGLOBIN (BEAKER) (test 28.5 pg 25.7-32.2 fzzy=489) MEAN CORPUSCULAR HEMOGLOBIN CONC (BEAKER) (test 32.7 GM/DL 32.3-36.5 vjqr=381) RED CELL DISTRIBUTION WIDTH (BEAKER) (test 14.8 % 11.6-14.4 xxfx=293) PLATELET COUNT (BEAKER) (test fydn=727) 175 K/CU MM 150-450 MEAN PLATELET VOLUME (BEAKER) (test noki=941) 11.3 fL 9.4-12.4 NUCLEATED RED BLOOD CELLS (BEAKER) (test 0 /100 WBC 0-0 qspk=857) POCT-GLUCOSE [id number] 23:20:00 Test Item Value Reference Range Comments POC-GLUCOSE METER (BEAKER) 133 mg/dL 70-110 TESTED AT [address] (test edgw=0866) [place] [id number] POCT-GLUCOSE [id number] 17:27:00 Test Item Value Reference Range Comments POC-GLUCOSE METER (BEAKER) 107 mg/dL 70-110 TESTED AT [facility] [address] [facility] (test aaqs=4276) [facility] [address] POCT-GLUCOSE [id number] 09:07:00 Test Item Value Reference Range Comments POC-GLUCOSE METER (BEAKER) 101 mg/dL 70-110 TESTED AT [facility] [address] [facility] (test faro=1820) [facility] [address] TROPONIN [id number] 07:02:00 Test Item Value Reference Range Comments TROPONIN I (BEAKER) (test rrry=858) 0.04 ng/mL 0.00-0.03 Troponin I (TnI) levels must be interpreted in the context of the presenting symptoms and the clinical findings. Elevated TnI levels indicate myocardial damage, but are not specific for ischemic heart disease. Elevated TnI levels are seen in patients with other cardiac conditions (including myocarditis and congestive heart failure), and slight TnI elevations occur in patients with other conditions, including sepsis, renal failure, acidosis, acute neurological disease, and persistent tachyarrhythmia.BASIC METABOLIC [id number] 06:55:00 Test Item Value Reference Range Comments SODIUM (BEAKER) (test 142 meq/L 136-145 nokq=129) POTASSIUM (BEAKER) (test 3.7 meq/L 3.5-5.1 qent=994) CHLORIDE (BEAKER) (test 110 meq/L 98-107 zngb=855) CO2 (BEAKER) (test 23 meq/L 22-29 ceyu=709) BLOOD UREA NITROGEN 17 mg/dL 7-21 (BEAKER) (test khnj=499) CREATININE (BEAKER) (test 0.77 mg/dL 0.57-1.25 ondq=431) GLUCOSE RANDOM (BEAKER) 114 mg/dL 70-105 (test viea=391) CALCIUM (BEAKER) (test 9.1 mg/dL 8.4-10.2 tmel=911) EGFR (BEAKER) (test 100 mL/min/1.73 sq m ESTIMATED GFR IS NOT nowp=0112) ACCURATE CREATININE CLEARANCE IN PREDICTING GLOMERULAR FILTRATION RATE. ESTIMATED GFR IS NOT APPLICABLE FOR DIALYSIS PATIENTS. B-TYPE NATRIURETIC FACTOR (BNP)2018-11-02 06:46:00 Test Item Value Reference Range Comments B-TYPE NATRIURETIC PEPTIDE (BEAKER) (test 722 pg/mL 0-100 yjqr=222) PROTHROMBIN [id number] 06:35:00 Test Item Value Reference Range Comments PROTIME (BEAKER) (test ybth=056) 14.3 seconds 11.7-14.7 INR (BEAKER) (test poci=204) 1.1 <=5.9 RECOMMENDED COUMADIN/WARFARIN INR THERAPY RANGESSTANDARD DOSE: 2.0 - 3.0 Includes: PROPHYLAXIS forvenous thrombosis, systemic embolization; TREATMENT for venous thrombosis and/or pulmonary embolus.HIGH RISK: Target INR is 2.5-3.5 for patients with mechanical heart valves.CBC (HEMOGRAM ONLY)2018-11-02 06:30:00 Test Item Value Reference Range Comments WHITE BLOOD CELL COUNT (BEAKER) (test qion=385) 11.4 K/ L 3.5-10.5 RED BLOOD CELL COUNT (BEAKER) (test pwjn=149) 4.29 M/ L 4.63-6.08 HEMOGLOBIN (BEAKER) (test tbch=253) 12.2 GM/DL 13.7-17.5 HEMATOCRIT (BEAKER) (test tnwy=783) 37.9 % 40.1-51.0 MEAN CORPUSCULAR VOLUME (BEAKER) (test gkyl=937) 88.3 fL 79.0-92.2 MEAN CORPUSCULAR HEMOGLOBIN (BEAKER) (test 28.4 pg 25.7-32.2 ycld=860) MEAN CORPUSCULAR HEMOGLOBIN CONC (BEAKER) (test 32.2 GM/DL 32.3-36.5 smhu=477) RED CELL DISTRIBUTION WIDTH (BEAKER) (test 15.2 % 11.6-14.4 ftlu=121) PLATELET COUNT (BEAKER) (test chaw=074) 161 K/CU MM 150-450 MEAN PLATELET VOLUME (BEAKER) (test lfii=831) 11.4 fL 9.4-12.4 NUCLEATED RED BLOOD CELLS (BEAKER) (test 0 /100 WBC 0-0 gsil=759) POCT-GLUCOSE [id number] 05:55:00 Test Item Value Reference Range Comments POC-GLUCOSE METER (BEAKER) 114 mg/dL 70-110 TESTED AT [facility] [address] [facility] (test uiom=2500) [facility] [address] POCT-GLUCOSE [id number] 23:27:00 Test Item Value Reference Range Comments POC-GLUCOSE METER (BEAKER) 133 mg/dL 70-110 TESTED AT [address] (test ixug=1072) [facility] [address] RAD, ABDOMEN/KUB, 1 VIEW [id number] 18:35:00Reason for exam:->To check NG TUbe positionFINAL REPORT INDICATION:Confirm feeding tube placement. TECHNIQUE: Abdomen radiograph one view. FINDINGS / IMPRESSION: There is a feeding tube that follows the course of the stomach with the tip projecting over the gastric antrum. Visualized bowel gas pattern is unremarkable. Osseous structures unremarkable. Signed: Bora Hawk MDReport Verified Date/Time: 11/01/2018 18:35:02 Reading Location: [facility] C013 Consult Reading Room POCT-GLUCOSE [id number] 17:52:00 Test Item Value Reference Range Comments POC-GLUCOSE METER (BEAKER) 134 mg/dL 70-110 TESTED AT [address] (test cgbg=6959) [place] [id number] POCT-GLUCOSE [id number] 15:42:00 Test Item Value Reference Range Comments POC-GLUCOSE METER (BEAKER) 135 mg/dL 70-110 TESTED AT [address] (test vhbi=2807) [place] [id number] 06:25:00 Test Item Value Reference Range Comments MAGNESIUM (BEAKER) (test jrrz=488) 2.3 mg/dL 1.6-2.6 COMPREHENSIVE METABOLIC [id number] 06:25:00 Test Item Value Reference Range Comments TOTAL PROTEIN (BEAKER) 5.9 gm/dL 6.0-8.3 (test kgbd=814) ALBUMIN (BEAKER) (test 3.3 g/dL 3.5-5.0 hhlh=9874) ALKALINE PHOSPHATASE 47 U/L 40-150 (BEAKER) (test thdp=430) BILIRUBIN TOTAL (BEAKER) 0.9 mg/dL 0.2-1.2 (test jvwl=267) SODIUM (BEAKER) (test 143 meq/L 136-145 yiwy=368) POTASSIUM (BEAKER) (test 3.6 meq/L 3.5-5.1 xiat=349) CHLORIDE (BEAKER) (test 109 meq/L 98-107 nmum=420) CO2 (BEAKER) (test 27 meq/L 22-29 ncsk=070) BLOOD UREA NITROGEN 22 mg/dL 7-21 (BEAKER) (test ffsk=259) CREATININE (BEAKER) (test 0.89 mg/dL 0.57-1.25 ibkb=779) GLUCOSE RANDOM (BEAKER) 152 mg/dL 70-105 (test tlrl=392) CALCIUM (BEAKER) (test 8.9 mg/dL 8.4-10.2 ktrc=859) AST (SGOT) (BEAKER) (test 35 U/L 5-34 nnkf=864) ALT (SGPT) (BEAKER) (test 28 U/L 6-55 bnoc=333) EGFR (BEAKER) (test 85 mL/min/1.73 sq m ESTIMATED GFR IS NOT vzxs=5075) ACCURATE CREATININE CLEARANCE IN PREDICTING GLOMERULAR FILTRATION RATE. ESTIMATED GFR IS NOT APPLICABLE FOR DIALYSIS PATIENTS. CBC W/PLT COUNT & AUTO [id number] 06:11:00 Test Item Value Reference Range Comments WHITE BLOOD CELL COUNT (BEAKER) (test wpac=924) 11.8 K/ L 3.5-10.5 RED BLOOD CELL COUNT (BEAKER) (test afpp=933) 4.35 M/ L 4.63-6.08 HEMOGLOBIN (BEAKER) (test ehlb=530) 12.2 GM/DL 13.7-17.5 HEMATOCRIT (BEAKER) (test lpsd=261) 38.4 % 40.1-51.0 MEAN CORPUSCULAR VOLUME (BEAKER) (test nazj=202) 88.3 fL 79.0-92.2 MEAN CORPUSCULAR HEMOGLOBIN (BEAKER) (test 28.0 pg 25.7-32.2 cgud=174) MEAN CORPUSCULAR HEMOGLOBIN CONC (BEAKER) (test 31.8 GM/DL 32.3-36.5 aity=232) RED CELL DISTRIBUTION WIDTH (BEAKER) (test 15.3 % 11.6-14.4 cnza=122) PLATELET COUNT (BEAKER) (test tgev=879) 165 K/CU MM 150-450 MEAN PLATELET VOLUME (BEAKER) (test ilof=007) 11.1 fL 9.4-12.4 NUCLEATED RED BLOOD CELLS (BEAKER) (test 0 /100 WBC 0-0 gknu=940) NEUTROPHILS RELATIVE PERCENT (BEAKER) (test 74 % mgre=254) LYMPHOCYTES RELATIVE PERCENT (BEAKER) (test 17 % oybc=180) MONOCYTES RELATIVE PERCENT (BEAKER) (test 7 % htsq=170) EOSINOPHILS RELATIVE PERCENT (BEAKER) (test 1 % gmcv=000) BASOPHILS RELATIVE PERCENT (BEAKER) (test 0 % rdik=507) NEUTROPHILS ABSOLUTE COUNT (BEAKER) (test 8.68 K/ L 1.78-5.38 emvf=413) LYMPHOCYTES ABSOLUTE COUNT (BEAKER) (test 2.02 K/ L 1.32-3.57 zyaq=261) MONOCYTES ABSOLUTE COUNT (BEAKER) (test 0.87 K/ L 0.30-0.82 wkar=823) EOSINOPHILS ABSOLUTE COUNT (BEAKER) (test 0.15 K/ L 0.04-0.54 ooju=390) BASOPHILS ABSOLUTE COUNT (BEAKER) (test 0.03 K/ L 0.01-0.08 oagn=549) IMMATURE GRANULOCYTES-RELATIVE PERCENT (BEAKER) 0 % 0-1 (test bclv=9851) CT, BRAIN, WITHOUT [id number] 05:58:00FINAL REPORT EXAM: CT head without contrast. CLINICAL HISTORY: Stroke COMPARISON: TECHNIQUE: CT images of the head were obtained without intravenous contrast. This exam was performed according to our departmental dose optimization program which includes automated exposure control, adjustment of the mA and/or kV according to patient's size and/or use of iterative reconstructive technique. FINDINGS:There is mild generalized parenchymal atrophy. There is an evolving demarcated acute infarct in the right frontal and right temporal lobes and right putamen. There is mildassociated parenchymal mass effect. There is a small acute parenchymal hemorrhage with surrounding edema but no significant mass effect in the right inferior temporal lobe measuring 1.4 x 1.3 cm (image13). There is mild prominence of the left frontotemporal extra-axial space which may be due to volume loss however a thin underlying subdural hygroma or chronic subdural hematoma cannot be excluded. There is no herniation or hydrocephalus. The basal cisterns are patent. The visualized orbits are normal. The visualized paranasal sinuses and tympanomastoid cavities are clear. The skull base and calvarium are intact. IMPRESSION: Evolving right MCA territory infarct. No acute hemorrhage within the infarct core. 1.4 x 1.3 cm acute parenchymal hemorrhage in the right inferior temporal lobe in a peripheral distribution which may represent a hemorrhagic contusion. Correlate with history of recent trauma. Short-term follow-up CT is recommended. Mild prominence of the left frontotemporal extra- axial space which may be due to volume loss however a thin underlying subdural hygroma or chronic subdural hematoma cannot be excluded Signed: Brenda Pandya MDReport Verified Date/Time: 11/01/2018 05:58:05 Reading Location: [address] Body Reading Room Electronically signed by: Eugenia GLEZ 11/01/2018 05:58 AMPOCT-GLUCOSE [id number] 23:14:00 Test Item Value Reference Range Comments POC-GLUCOSE METER (BEAKER) 165 mg/dL 70-110 TESTED AT [address] (test heso=[id number]) [facility] [id number] [address], CTANGIO [id number] 18:44:00FINAL REPORT CT, CTANGIO BRAIN, CT, CAROTID, ANGIOBRAIN CT WITHOUT CONTRAST INDICATION: Stroke COMPARISON: CT head of the same date TECHNIQUE:Rapid acquisition spiral images were obtained between the aortic arch and the cranial vertex during intravenous contrast infusion to reconstruct axial images and angiographic 3D maximum intensity projections (MIP). 3-D volumetric reformatted images were created at a dedicated workstation. Precontrast images of the brain were also obtained. Stenosis evaluation reported in compliance with NASCET criteria. DOSE REDUCTION : Dose modulation, iterative reconstruction, and/or weight-based adjustment of the mA/kV was utilized to reduce the radiation dose to as low as reasonably achievable. FINDINGS:CT BRAIN: Evolving ischemic changes in the right middle cerebral artery territory with developing encephalomalacia. No petechial hemorrhaging isevident. There is minimal edema but without mass effect or midline shift. Left hemisphere is unremarkable. Ventricular configuration is grossly normal with a small degree of effacement noted on the right. No entrapment is present. Posterior fossa is unremarkable. Osseous abnormality. Paranasal sinusesreveal polyposis versus layering fluid in the left sphenoid chamber. CTA BRAIN:Although attenuated, the middle cerebral artery branches remain perfused beyond the sylvian segments. Cortical segments are opacified, but to a lesser degree than those seen in the left hemisphere. The basilar structures are unremarkable. Intact anterior and posterior tibial arteries are present. CTA NECK:Arch anatomy is conventional with type I morphology. There is no narrowing at the origins of the great cervical vessels. Origins of the vertebral arteries are patent. The left vertebral artery is dominant throughout thecervical course. There is no flow limitation. Common carotid arteries demonstrate normal caliber. There is marked atherosclerotic disease on the right with near complete occlusion of the right internalcarotid artery at the origin. Reconstitution of diminutive caliber is noted at C2 level. Left internal carotid artery is widely patent extracranially. Nonvascular findings: [id number] degenerative changes are present in the cervical [...] effacement without entrapment. Near-complete occlusion of the rightinternal carotid artery at the bifurcation. Distal reconstitution by the C2 level. No occlusion of the intracranial circulation. Attenuated opacification of the distal right middle branches. Signed: JR Stein Robert MDReport Verified Date/Time: 10/31/2018 18:44:42 Reading Location: [address] Neuro Reading Room CT, CAROTID, [id number] 18:44: 00FINAL REPORT CT, CTANGIO BRAIN, CT, CAROTID, ANGIOBRAIN CT WITHOUT CONTRAST INDICATION: Stroke COMPARISON: CT head of the same date TECHNIQUE:Rapid acquisition spiral images were obtained between the aortic arch and the cranial vertex during intravenous contrast infusion to reconstruct axial images and angiographic 3D maximum intensity projections (MIP) . 3-D volumetric reformatted images were created at a dedicated workstation. Precontrast images of the brain were also obtained. Stenosis evaluation reported in compliance with NASCET criteria. DOSE REDUCTION: Dose modulation, iterative reconstruction, and/or weight-based adjustment of the mA/kV was utilized to reduce the radiation dose to as low as reasonably achievable. FINDINGS:CT BRAIN: Evolving ischemic changes in the right middle cerebral artery territory with developing encephalomalacia. No petechial hemorrhaging isevident. There is minimal edema but without mass effect or midline shift. Left hemisphere is unremarkable. Ventricular configuration is grossly normal with a small degree of effacement noted on the right. No entrapment is present. Posterior fossa is unremarkable. Osseous abnormality. Paranasal sinusesreveal polyposis versus layering fluid in the left sphenoid chamber. CTA BRAIN: Although attenuated, the middle cerebral artery branches remain perfused beyond the sylvian segments. Cortical segments are opacified, but to a lesser degree than those seen in the left hemisphere. The basilar structures are unremarkable. Intact anterior and posterior tibial arteries are present. CTA NECK:Arch anatomy is conventional with type I morphology. There is no narrowing at the origins of the great cervical vessels. Origins of the vertebral arteries are patent. The left vertebral artery is dominant throughout thecervical course. There is no flow limitation. Common carotid arteries demonstrate normal caliber. There is marked atherosclerotic disease on the right with near complete occlusion of the right internalcarotid artery at the origin. Reconstitution of diminutive caliber is noted at C2 level. Left internal carotid artery is widely patent extracranially. Nonvascular findings:Mild-to- moderate degenerative changes are present in the cervical [...] effacement without entrapment. Near-complete occlusion of the rightinternal carotid artery at the bifurcation. Distal reconstitution by the C2 level. No occlusion of the intracranial circulation. Attenuated opacification of the distal right middle branches. Signed: JR Stein Robert MDReport Verified Date/Time: 10/31/2018 18:44:42 Reading Location: [facility] Neuro Reading Room [id number] 14:17:00 Test Item Value Reference Range Comments RPR SCREEN (BEAKER) (test yxva=517) Nonreactive Nonreactive CBC W/PLT COUNT & AUTO [id number] 12:54:00 Test Item Value Reference Range Comments WHITE BLOOD CELL COUNT (BEAKER) (test zumn=012) 19.3 K/ L 3.5-10.5 RED BLOOD CELL COUNT (BEAKER) (test shhk=428) 4.94 M/ L 4.63-6.08 HEMOGLOBIN (BEAKER) (test ufgw=097) 14.2 GM/DL 13.7-17.5 HEMATOCRIT (BEAKER) (test gfca=440) 42.3 % 40.1-51.0 MEAN CORPUSCULAR VOLUME (BEAKER) (test wnrn=111) 85.6 fL 79.0-92.2 MEAN CORPUSCULAR HEMOGLOBIN (BEAKER) (test 28.7 pg 25.7-32.2 pcku=997) MEAN CORPUSCULAR HEMOGLOBIN CONC (BEAKER) (test 33.6 GM/DL 32.3-36.5 exhr=768) RED CELL DISTRIBUTION WIDTH (BEAKER) (test 15.0 % 11.6-14.4 eqfz=608) PLATELET COUNT (BEAKER) (test atse=116) 197 K/CU MM 150-450 MEAN PLATELET VOLUME (BEAKER) (test tagm=563) 11.0 fL 9.4-12.4 NUCLEATED RED BLOOD CELLS (BEAKER) (test 0 /100 WBC 0-0 ehgq=641) (CELLAVISION MANUAL DIFF)2018-10-31 12:54:00 Test Item Value Reference Range Comments NEUTROPHILS - REL (CELLAVISION)(BEAKER) (test 77 % ffko=5148) LYMPHOCYTES - REL (CELLAVISION)(BEAKER) (test 15 % ixnp=2847) MONOCYTES - REL (CELLAVISION)(BEAKER) (test 4 % ullq=1623) BANDS - REL (CELLAVISION)(BEAKER) (test 3 % 0-10 ocib=0007) ATYPICAL LYMPHOCYTES - REL (CELLAVISION)(BEAKER) 1 % 0-0 (test yuqa=8960) NEUTROPHILS - ABS (CELLAVISION)(BEAKER) (test 14.86 K/ul 1.78-5.38 nxur=7592) LYMPHOCYTES - ABS (CELLAVISION)(BEAKER) (test 2.90 K/ul 1.32-3.57 fsky=0901) MONOCYTES - ABS (CELLAVISION)(BEAKER) (test 0.77 K/uL 0.30-0.82 ynxk=2317) BANDS - ABS (CELLAVISION)(BEAKER) (test 0.58 K/uL 0.00-0.80 wfgn=5638) ATYPICAL LYMPHOCYTES - ABS (CELLAVISION)(BEAKER) 0.19 K/uL 0.00-0.00 (test kmvl=8780) TOTAL COUNTED (BEAKER) (test jrji=9401) 100 SMUDGE CELLS (BEAKER) (test qszf=6250) Present GIANT PLATELETS (BEAKER) (test fewh=997) Present POLYCHROMATOPHILLIC RBCS(BEAKER) (test ddfs=897) 1+ few ANISOCYTOSIS (BEAKER) (test ioyh=787) 1+ few MICROCYTES (BEAKER) (test fjyb=619) 1+ few ARTIFACT (CELLAVISION)(BEAKER) (test qrnj=8437) Present PLATELET CONCENTRATION (CELLAVISION)(BEAKER) Adequate (test jpsp=5890) Received comment: User comments: Slide comments:HEMOGLOBIN [id number] 11:05: 00 Test Item Value Reference Range Comments HEMOGLOBIN A1C (BEAKER) (test gmql=555) 8.4 % 4.3-6.1 VITAMIN [id number] 07:43:00 Test Item Value Reference Range Comments VITAMIN B12 (BEAKER) (test lzto=081) 595 pg/mL 213-816 TROPONIN [id number] 07:21:00 Test Item Value Reference Range Comments TROPONIN I (BEAKER) (test oqrn=390) 0.13 ng/mL 0.00-0.03 Troponin I (TnI) levels must be interpreted in the context of the presenting symptoms and the clinical findings. Elevated TnI levels indicate myocardial damage, but are not specific for ischemic heart disease. Elevated TnI levels are seen in patients with other cardiac conditions (including myocarditis and congestive heart failure), and slight TnI elevations occur in patients with other conditions, including sepsis, renal failure, acidosis, acute neurological disease, and persistent tachyarrhythmia.C-REACTIVE [id number] 07:16:00 Test Item Value Reference Range Comments C-REACTIVE PROTEIN (BEAKER) (test elfm=995) 4.19 mg/dL 0.00-0.50 TSH/FREE T4 IF [id number] 06:15:00 Test Item Value Reference Range Comments THYROID STIMULATING HORMONE (BEAKER) (test 2.46 uIU/mL 0.35-4.94 oiyp=538) [id number] 05:54:00 Test Item Value Reference Range Comments PROTIME (BEAKER) (test uxuo=936) 14.3 seconds 11.7-14.7 INR (BEAKER) (test dxcg=898) 1.1 <=5.9 PARTIAL THROMBOPLASTIN TIME (BEAKER) (test 29.4 seconds 22.5-36.0 lchj=292) RECOMMENDED COUMADIN/WARFARIN INR THERAPY RANGESSTANDARD DOSE: 2.0 - 3.0 Includes: PROPHYLAXIS forvenous thrombosis, systemic embolization; TREATMENT for venous thrombosis and/or pulmonary embolus.HIGH RISK: Target INR is 2.5-3.5 for patients with mechanical heart valves.LIPID [id number] 05:51:00 Test Item Value Reference Range Comments TRIGLYCERIDES (BEAKER) (test qabg=966) 191 mg/dL CHOLESTEROL (BEAKER) (test vdww=519) 115 mg/dL HDL CHOLESTEROL (BEAKER) (test ypnw=182) 41 mg/dL LDL CHOLESTEROL CALCULATED (BEAKER) (test 36 mg/dL hmpa=197) Triglyceride Reference Range: Low Risk <150 Borderline 150- 199 High Risk 200-499 Very High Risk >=500Cholesterol Reference Range: Low Risk <200 Borderline 200-239 High Risk > 240HDL Cholesterol Reference Range: Low Risk >=60 High Risk <40LDL Cholesterol Reference Range: Optimal <100 Near Optimal 100-129 Borderline 130-159 High 160-189 Very High >=190COMPREHENSIVE METABOLIC [id number] 05:51:00 Test Item Value Reference Range Comments TOTAL PROTEIN (BEAKER) 6.6 gm/dL 6.0-8.3 (test oytc=354) ALBUMIN (BEAKER) (test 3.7 g/dL 3.5-5.0 gtjg=7711) ALKALINE PHOSPHATASE 51 U/L 40-150 (BEAKER) (test ryto=146) BILIRUBIN TOTAL (BEAKER) 1.5 mg/dL 0.2-1.2 (test fpyf=564) SODIUM (BEAKER) (test 141 meq/L 136-145 stca=409) POTASSIUM (BEAKER) (test 4.3 meq/L 3.5-5.1 nzas=502) CHLORIDE (BEAKER) (test 108 meq/L 98-107 uqua=853) CO2 (BEAKER) (test 25 meq/L 22-29 xpdt=372) BLOOD UREA NITROGEN 33 mg/dL 7-21 (BEAKER) (test wbyg=548) CREATININE (BEAKER) (test 1.02 mg/dL 0.57-1.25 apyk=328) GLUCOSE RANDOM (BEAKER) 160 mg/dL 70-105 (test svou=769) CALCIUM (BEAKER) (test 9.0 mg/dL 8.4-10.2 esrk=100) AST (SGOT) (BEAKER) (test 54 U/L 5-34 vouo=051) ALT (SGPT) (BEAKER) (test 32 U/L 6-55 mnga=699) EGFR (BEAKER) (test 72 mL/min/1.73 sq m ESTIMATED GFR IS NOT maju=0890) ACCURATE CREATININE CLEARANCE IN PREDICTING GLOMERULAR FILTRATION RATE. ESTIMATED GFR IS NOT APPLICABLE FOR DIALYSIS PATIENTS.
[2019-04-16 03:31] LABS: Absolute Lymphocytes (CBC) 2.8 K/uL (0.7-4.9); Basophils % 0.3 % (0-1.3); Hematocrit 34.9 % (39.6-49.0); Lymphocytes % 31.3 % (15.3-44.8); MPV 8.5 fL (7.6-11.3); RBC Red Blood Cell Count 4.15 M/uL (4.33-5.43)
[2019-04-16 03:38] LABS: Protime INR 0.93
[2019-04-16 03:50] LABS: Potassium 3.7 mmol/L (3.5-5.1)
--- NOTE | 2019-04-16 05:22 | EDPHYS ---
Physician Documentation [facility] Name: Zain Hope Age: 68 yrs Sex: Male : 1950 Arrival Date: 04/16/2019 Time: 02:57 Bed 3 Private MD: ED Physician Dave Chicas HPI: 04/16 05:41 This 68 yrs old Male presents to ER via EMS with complaints of Probable tw4 Seizure. 05:41 The patient presents after having a single isolated seizure, that lasted an unknown tw4 period of time. Character of seizure(s): Loss of consciousness: it is not known if the patient experienced loss of consciousness, Motor activity: blank stare, the motor activity is unknown. Seizure onset: just prior to arrival. Context: the seizure(s) was witnessed, by the detention staff. Seizure Hx: the patient has no previous seizure history. Associated injury: The patient did not suffer any apparent associated injury. EMS care: none. The patient has not experienced similar symptoms in the past. Historical: - Allergies: 03:11 No Known Allergies; lp1 - Home Meds: 03:11 Arginaid 4.5 gram-156 mg/9.2 gram oral pwpk twice a day [Active]; ascorbic acid lp1 (vitamin C) 500 mg tab twice a day [Active]; aspirin 81 mg Oral TbEC 1 tab once daily [Active]; fluoxetine 20 mg Oral cap 1 cap once daily [Active]; Lantus 100 unit/mL Sub-Q soln 10 unit twice a day [Active]; levothyroxine 50 mcg tab 1 tab once daily [Active]; atorvastatin 80 mg oral tab 1 tab once daily [Active]; acetaminophen 325 mg Oral tab 2 tabs every 4 hours [Active]; lidocaine 5 % topical ptmd 1 patch once daily [Active]; losartan 25 mg oral tab 0.5 tab once daily [Active]; metformin 1,000 mg Oral tab 1 tab 2 times per day [Active]; metoprolol tartrate 25 mg Oral tab 0.5 tab 2 times per day [Active]; senna 8.6 mg oral tab once daily [Active]; ticagrelor oral 90 mg oral 1 tab 2 times per day [Active]; tramadol 50 mg Oral tab 2 tabs every 6 hours [Active]; Zantac 150 mg Oral tab 1 tab once daily [Active]; - PMHx: 03:11 CVA; Hypothyroidism; Diabetes - NIDDM; Hyperlipidemia; Depression; Hypertension; GERD; lp1 Dysphagia; - PSHx: 03:11 PEG tube; lp1 - Immunization history:: Adult Immunizations unknown, Adult Immunizations up to date. - Social history:: Smoking status: Patient/guardian denies using tobacco, Smoking status: unknown. - Ebola Screening: : No symptoms or risks identified at this time No symptoms or risks identified at this time. ROS: 05:41 Constitutional: Negative for fever, chills, and weight loss, Eyes: Negative for injury, tw4 pain, redness, and discharge, Cardiovascular: Negative for chest pain, palpitations, and edema, Respiratory: Negative for shortness of breath, cough, wheezing, and pleuritic chest pain, Back: Negative for injury and pain, MS/Extremity: Negative for injury and deformity. 05:41 Neuro: Positive for altered mental status, seizure activity, Negative for dizziness, gait disturbance, headache, hearing loss, numbness, speech changes, syncope, near syncope, tinnitus, tremor, visual changes. Exam: 05:41 Constitutional: This is a well developed, well nourished patient who is awake, alert, tw4 and in no acute distress. Head/Face: Normocephalic, atraumatic. Chest/axilla: Normal chest wall appearance and motion. Nontender with no deformity. No lesions are appreciated. Cardiovascular: Regular rate and rhythm with a normal S1 and S2. No gallops, murmurs, or rubs. Normal PMI, no JVD. No pulse deficits. Respiratory: Lungs have equal breath sounds bilaterally, clear to auscultation and percussion. No rales, rhonchi or wheezes noted. No increased work of breathing, no retractions or nasal flaring. Abdomen/GI: Soft, non-tender, with normal bowel sounds. No distension or tympany. No guarding or rebound. No evidence of tenderness throughout. Back: No spinal tenderness. No costovertebral tenderness. Full range of motion. MS/ Extremity: Pulses equal, no cyanosis. Neurovascular intact. Full, normal range of motion. Neuro: Awake and alert, GCS 15, oriented to person, place, time, and situation. Cranial nerves II-XII grossly intact. Motor strength 5/5 in all extremities. Sensory grossly intact. Cerebellar exam normal. Normal gait. Vital Signs: 03:01 BP 135 / 86; Pulse 72; Resp 12; Temp 97(TE); Pulse Ox 96% on R/A; Weight 52.16 kg; Pain lp1 0/10; 04:00 BP 151 / 80; Pulse 62; Resp 12; Pulse Ox 97% on R/A; lp1 05:32 BP 177 / 97; Pulse 61; Resp 16; Temp 97.7; Pulse Ox 97% on R/A; Pain 0/10; ak1 06:08 BP 158 / 83; Pulse 57; Resp 16; Pulse Ox 97% on R/A; ak1 Tawnya Coma Score: 03:08 Eye Response: spontaneous(4). Verbal Response: oriented(5). Motor Response: obeys ak1 commands(6). Total: 15. MDM: 02:59 Patient medically screened. tw4 05:41 Differential diagnosis: cardiac arrhythmia, seizure, TIA. Data reviewed: vital signs, tw4 nurses notes, lab test result(s), CBC, white blood cell count, hemoglobin, hematocrit, platelets, electrolytes, sodium, potassium, chloride, serum bicarbonate, BUN, creatinine, serum glucose. Counseling: I had a detailed discussion with the patient and/or guardian regarding: the historical points, exam findings, and any diagnostic results supporting the discharge/admit diagnosis, lab results, radiology results. 04/16 03:04 Order name: Basic Metabolic Panel; Complete Time: 05:15 04/16 05:16 Interpretation: Normal except: GLUC 146; GFR 54; CRE 1.31. 04/16 03:04 Order name: CBC with Diff; Complete Time: 05:16 04/16 05:16 Interpretation: Normal except: RBC 4.15; HGB 11.9; HCT 34.9; RDW 18.6. 04/16 03:04 Order name: Protime (+inr); Complete Time: 05:16 04/16 05:16 Interpretation: Within normal limits: PT 11.0. 04/16 03:04 Order name: Ptt, Activated; Complete Time: 05:16 04/16 05:16 Interpretation: Within normal limits: PTT 31.3. 04/16 03:21 Order name: CT Head Brain wo Cont tw4 04/16 03:04 Order name: Cardiac monitoring; Complete Time: 03:12 04/16 03:04 Order name: IV Saline Lock; Complete Time: 03:12 04/16 03:04 Order name: Labs collected and sent; Complete Time: 03:23 4 04/16 03:04 Order name: NPO; Complete Time: 03:23 04/16 03:04 Order name: O2 Per Protocol; Complete Time: 03:12 04/16 03:04 Order name: O2 Sat Monitoring; Complete Time: 03:12 tw04/16 03:13 Order name: EKG; Complete Time: 03:13 lp1 04/16 03:13 Order name: EKG - Nurse/Tech; Complete Time: 03:24 lp1 EC:41 Rate is 72 beats/min. Rhythm is regular, Normal Sinus Rhythm. QRS [place] is Normal. QRS tw4 interval is normal. QT interval is normal. T waves are Inverted in leads II, III, aVF. ST Segment is depressed in leads I, aVL, V3, V4, V5, <1mm. Clinical impression: NSR w/ Non-specific ST/T Changes. Interpreted by me. Reviewed by me. Administered Medications: 05:32 Drug: Keppra 500 mg Route: PO; ak1 05:32 Follow up: Response: No adverse reaction ak1 Disposition: 04/16/19 05:21 Discharged to Home. Impression: Epileptic seizures related to external causes, not intractable. - Condition is Stable. - Discharge Instructions: Seizure, Adult, [id number]. - Prescriptions for Keppra 500 mg Oral Tablet - take 1 tablet by ORAL route every 12 hours; 20 tablet. - Medication Reconciliation Form, Thank You Letter, Antibiotic Education, Prescription Opioid Use form. - Follow up: Private Physician; When: Upon discharge from the Emergency Department; Reason: If symptoms return, Recheck today's complaints, Continuance of care. Follow up: Deondre Ovalles MD; When: Today; Reason: If symptoms return, Recheck today's complaints, Continuance of care. Follow up: Jeanmarie Patton MD; When: Upon discharge from the Emergency Department; Reason: If symptoms return, Recheck today's complaints, Continuance of care. - Problem is new. - Symptoms have improved. Signatures: Dispatcher [employer] EDMS Roma Mock, RN RN lp1 Cindy Red, RN RN ak1 Fan Doshi RN RN jl7 Dave Chicas MD MD tw4 Corrections: (The following items were deleted from the chart) 10:02 05:21 04/16/2019 05:21 Discharged to Home. Impression: Epileptic seizures related to jl7 external causes, not intractable. Condition is Stable. Forms are Medication Reconciliation Form, Thank You Letter, Antibiotic Education, Prescription Opioid Use. Follow up: Private Physician; When: Upon discharge from the Emergency Department; Reason: If symptoms return, Recheck today's complaints, Continuance of care. Follow up: Deondre Ovalles; When: Today; Reason: If symptoms return, Recheck today's complaints, Continuance of care. Follow up: Jeanmarie Patton; When: Upon discharge from the Emergency Department; Reason: If symptoms return, Recheck today's complaints, Continuance of care. Problem is new. Symptoms have improved. tw4
--- NOTE | 2019-04-16 05:22 | ER ---
Nurse's Notes [facility] Name: Zain Hope Age: 68 yrs Sex: Male : 1950 Arrival Date: 04/16/2019 Time: 02:57 Bed 3 Private MD: Diagnosis: Epileptic seizures related to external causes, not intractable Presentation: 04/16 02:58 Presenting complaint: EMS states: Called for patient with probable seizure like lp1 activity, lasting about 5 minutes; No history of seizures; Patient A\\T\\O x2 on arrival of EMS; Denies pain. Transition of care: patient was received from another setting of care ([facility]), [facility]. Onset of symptoms was April 16, 2019 at 02:00. Risk Assessment: Do you want to hurt yourself or someone else? Patient reports no desire to harm self or others. Initial Sepsis Screen: Does the patient meet any 2 criteria? No. Patient's initial sepsis screen is negative. Does the patient have a suspected source of infection? No. Patient's initial sepsis screen is negative. Care prior to arrival: IV initiated. 20 GA, in the left forearm, Glucose check: 151. 02:58 Method Of Arrival: EMS: [facility] lp1 02:58 Acuity: BRYANT 2 lp1 Triage Assessment: 03:08 General: Appears in no apparent distress. ak1 Historical: - Allergies: 03:11 No Known Allergies; lp1 - Home Meds: 03:11 Arginaid 4.5 gram-156 mg/9.2 gram oral pwpk twice a day [Active]; ascorbic acid lp1 (vitamin C) 500 mg tab twice a day [Active]; aspirin 81 mg Oral TbEC 1 tab once daily [Active]; fluoxetine 20 mg Oral cap 1 cap once daily [Active]; Lantus 100 unit/mL Sub-Q soln 10 unit twice a day [Active]; levothyroxine 50 mcg tab 1 tab once daily [Active]; atorvastatin 80 mg oral tab 1 tab once daily [Active]; acetaminophen 325 mg Oral tab 2 tabs every 4 hours [Active]; lidocaine 5 % topical ptmd 1 patch once daily [Active]; losartan 25 mg oral tab 0.5 tab once daily [Active]; metformin 1,000 mg Oral tab 1 tab 2 times per day [Active]; metoprolol tartrate 25 mg Oral tab 0.5 tab 2 times per day [Active]; senna 8.6 mg oral tab once daily [Active]; ticagrelor oral 90 mg oral 1 tab 2 times per day [Active]; tramadol 50 mg Oral tab 2 tabs every 6 hours [Active]; Zantac 150 mg Oral tab 1 tab once daily [Active]; - PMHx: 03:11 CVA; Hypothyroidism; Diabetes - NIDDM; Hyperlipidemia; Depression; Hypertension; GERD; lp1 Dysphagia; - PSHx: 03:11 PEG tube; lp1 - Immunization history:: Adult Immunizations unknown, Adult Immunizations up to date. - Social history:: Smoking status: Patient/guardian denies using tobacco, Smoking status: unknown. - Ebola Screening: : No symptoms or risks identified at this time No symptoms or risks identified at this time. Screenin:03 Abuse screen: Denies threats or abuse. Denies injuries from another. Nutritional ak1 screening: No deficits noted. Tuberculosis screening: No symptoms or risk factors identified. Fall Risk Ambulatory Aid- None/Bed Rest/Nurse Assist (0 pts). Assessment: 03:03 General: Appears in no apparent distress. slender, well groomed, Behavior is calm. ak1 Pain: Denies pain. Neuro: Level of Consciousness is awake, alert, obeys commands, Oriented to pt is non verbal. Gait is pt is non ambulatory due to past CVA. Speech pt is non verbal s/p CVA history. . Cardiovascular: Heart tones S1 S2 Chest pain is denied. Respiratory: Airway is patent Trachea midline Respiratory effort is even, unlabored, Respiratory pattern is regular. GI: PEG tube in place, clamped. Site clean. Bowel sounds present X 4 quads. : pt with brief in place. EENT: No signs and/or symptoms were reported regarding the EENT system. Derm: No signs and/or symptoms reported regarding the dermatologic system. Musculoskeletal: Range of motion: limited in all extremities, pt with history of CVA. 03:15 Reassessment: Patient states feeling dizzy; "What happened to me?"; Patient reoriented lp1 to time and place; Denies pain. 04:14 Reassessment: Patient appears in no apparent distress at this time. Patient resting, lp1 eyes closed, respirations unlabored. 05:24 Reassessment: Patient appears in no apparent distress at this time. No changes from ak1 previously documented assessment. Patient and/or family updated on plan of care and expected duration. Pain level reassessed. Patient is alert, oriented x 3, equal unlabored respirations, skin warm/dry/pink. pt A\\T\\OX3. pt family at bedside. care tech to contact Chandrika about transportation back to their facility. 05:30 Reassessment: Jaja Cobos contacted by [employer]. Jaja stated she called [employer], left a voicemail due to no answer. Will check back with Jaja in 30 minuets. 05:32 Reassessment: pt has not had any seizure activity while in ER3. ak1 06:07 Reassessment: Jaja with [facility] contacted again. Jaja stated she has not heard anything ak1 back from [employer] but has not attempted to contact them again. 07:19 Reassessment: Tsering at [facility] states "I didn't know he needed a ride, this is a new jl7 shift. I'll have to find out and call you back.". 08:51 Reassessment: Chandrika reports [facility]OH[facility] will be right here to pick him up. jl7 09:48 Reassessment: MANOHAR at bedside to transport pt. jl7 Vital Signs: 03:01 BP 135 / 86; Pulse 72; Resp 12; Temp 97(TE); Pulse Ox 96% on R/A; Weight 52.16 kg; Pain lp1 0/10; 04:00 BP 151 / 80; Pulse 62; Resp 12; Pulse Ox 97% on R/A; lp1 05:32 BP 177 / 97; Pulse 61; Resp 16; Temp 97.7; Pulse Ox 97% on R/A; Pain 0/10; ak1 06:08 BP 158 / 83; Pulse 57; Resp 16; Pulse Ox 97% on R/A; ak1 Tawnya Coma Score: 03:08 Eye Response: spontaneous(4). Verbal Response: oriented(5). Motor Response: obeys ak1 commands(6). Total: 15. ED Course: 02:57 Patient arrived in ED. lp1 02:59 Dave Chicas MD is Attending Physician. tw4 03:00 Triage completed. lp1 03:00 Arm band placed on left wrist. lp1 03:01 Maintain EMS IV. Dressing intact. Site clean \\T\\ dry. Gauge \\T\\ site: 20g to L FA. lp 1 03:03 Cindy Red, RN is Primary Nurse. ak1 03:03 Patient has correct armband on for positive identification. Bed in low position. Call ak1 light in reach. Side rails up X2. Seizure precautions initiated. monitor technician on. Pulse ox on. NIBP on. Visitors limited. Warm blanket given. 03:23 Initial lab(s) drawn, by me, sent to lab. lp1 03:58 CT Head Brain wo Cont In Process Unspecified. EDMS 05:20 Deondre Ovalles MD is Referral Physician. tw4 05:20 Jeanmarie Patton MD is Referral Physician. tw4 05:23 No provider procedures requiring assistance completed. ak1 09:57 IV discontinued, intact, bleeding controlled, No redness/swelling at site. Pressure jl7 dressing applied. Administered Medications: 05:32 Drug: Keppra 500 mg Route: PO; ak1 05:32 Follow up: Response: No adverse reaction ak1 Outcome: 05:21 Discharge ordered by . tw4 05:23 Condition: stable ak1 05:23 Discharge instructions given to patient, family, Instructed on discharge instructions, follow up and referral plans. Demonstrated understanding of instructions, follow-up care, medications. 05:24 Prescriptions given X 1. ak1 09:55 Discharged to senior care. [facility]OH[facility] here to transport jl7 10:02 Patient left the ED. jl7 Signatures: Dispatcher [employer] EDMO Roma Mock, JACLYN RN lp1 Cindy Red, RN JACLYN ak1 Fan Doshi RN RN jl7 Dave Chicas MD MD tw4 Corrections: (The following items were deleted from the chart) 09:57 09:55 Transferred [facility]. Note: [facility] jl7 jl7
[2019-04-16] MEDS ORDERED: levETIRAcetam 500 MG TAB ONE (05:23)
[2019-04-16 10:09] VITALS: O2SAT 97
[2019-04-16 10:10] VITALS: TEMP 97.7
[2019-04-16 10:12] VITALS: BP 158/83
--- NOTE | 2019-04-16 10:53 | RAD REPORT ---
EXAM DESCRIPTION: CT HEAD WITHOUT CONTRAST CLINICAL HISTORY: SEIZURE COMPARISON: None. TECHNIQUE: Axial [address] imaging of the brain. Reformatted coronal and sagittal images ob tained. This examination was performed according to our departmental dose optimization program, which include s automated exposure control, adjustment of the mA and/or kV according to patient size and/or use of iterative reconstruction technique. FINDINGS: There is significant right frontal temporal and parietal encephalomalacia due to remote ri ght middle cerebral artery territory infarct. There is mild generalized cortical atrophy. There is no hemorrhage, mass, or midline shift. No large acute territorial infarction. The cerebellum and vermis appear normal. Fourth ventricle is midline. Normal sella contents. Imaged facial bones are intact. Intact skull base and calvarium. Clear paranasal sinuses and mastoid air cells. The visualized intraorbital contents appear normal. Right posterior occipital mild skin th ickening with an area of soft tissue induration suggestive of remote scarring. IMPRESSION: 1. Remote right middle cerebral artery territorial infarction. No intracranial acute fin ding. 2. Mild generalized atrophy. Electronically signed by: Priya Fernandez DO 04/16/2019 4:27 AM CDT Due to temporary technical issues with the PACS/Fluency reporting system, reports are being signed by the in house radiologist as a courtesy to ensure prompt reporting. The interpreting radiologist is f amelialy responsible for the content of the report.
--- NOTE | 2019-04-16 11:34 | EKG ---
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
== END 2019-04-16 10:02 | disposition home or self-care (01) ==
LOC: ER 02:54
DX: G40.509 Epileptic seizures related to external causes, not intractable, without status epilepticus (principal); E03.9 Hypothyroidism, unspecified; E11.9 Type 2 diabetes mellitus without complications; E78.5 Hyperlipidemia, unspecified; I10 Essential (primary) hypertension; K21.9 Gastro-esophageal reflux disease without esophagitis
CPT/HCPCS: 36415; 70450; 80048; 85025; 85610; 85730; 93005; 99284

== ENCOUNTER 2019-07-18 12:54 | Emergency (ER) | payer OTHER ==
--- OUTSIDE RECORDS SUMMARY | 2019-07-18 12:59 | XMS REPORT ---
:1950 [facility] Jeff Blue [address] [place] [id number] Care Team Providers Name Role Phone SARAHDALLASLISA VILLALBA Unavailable Unavailable Problems This patient has no known problems. Allergies, Adverse Reactions, Alerts This patient has no known allergies or adverse reactions. Medications This patient has no known medications. Results Test Description Test Time Test Comments Text Results Atomic Results Result Comments BLOOD CULTURE 2018-11-23 02:01:00 Test Item Value Reference Range Comments CULTURE (BEAKER) (test xgkg=6233) No growth in 5 days BLOOD [id number] 02:01:00 Test Item Value Reference Range Comments CULTURE (BEAKER) (test ritc=6574) No growth in 5 days POCT-GLUCOSE [id number] 17:22:00 Test Item Value Reference Range Comments POC-GLUCOSE METER (BEAKER) 212 mg/dL 70-110 TESTED AT [address] (test vhnz=3111) [place] [address] POCT-GLUCOSE [id number] 12:44:00 Test Item Value Reference Range Comments POC-GLUCOSE METER (BEAKER) 229 mg/dL 70-110 TESTED AT [address] (test sypf=1535) [place] [address] POCT-GLUCOSE [id number] 06:22:00 Test Item Value Reference Range Comments POC-GLUCOSE METER (BEAKER) 211 mg/dL 70-110 TESTED AT [address] (test zjwc=7749) [place] [address] BASIC METABOLIC [id number] 06:20:00 Test Item Value Reference Range Comments SODIUM (BEAKER) (test 140 meq/L 136-145 qxwv=569) POTASSIUM (BEAKER) (test 4.3 meq/L 3.5-5.1 pmwr=297) CHLORIDE (BEAKER) (test 106 meq/L 98-107 gcpx=013) CO2 (BEAKER) (test 27 meq/L 22-29 efww=250) BLOOD UREA NITROGEN 35 mg/dL 7-21 (BEAKER) (test ecpx=195) CREATININE (BEAKER) (test 0.95 mg/dL 0.57-1.25 uydt=706) GLUCOSE RANDOM (BEAKER) 200 mg/dL 70-105 (test owjy=841) CALCIUM (BEAKER) (test 9.2 mg/dL 8.4-10.2 avna=087) EGFR (BEAKER) (test 78 mL/min/1.73 sq m ESTIMATED GFR IS NOT sezn=2448) ACCURATE CREATININE CLEARANCE IN PREDICTING GLOMERULAR FILTRATION RATE. ESTIMATED GFR IS NOT APPLICABLE FOR DIALYSIS PATIENTS. CBC (HEMOGRAM ONLY)2018-11-20 05:54:00 Test Item Value Reference Range Comments WHITE BLOOD CELL COUNT (BEAKER) (test ytyc=147) 10.6 K/ L 3.5-10.5 RED BLOOD CELL COUNT (BEAKER) (test cpdv=455) 4.30 M/ L 4.63-6.08 HEMOGLOBIN (BEAKER) (test cwyd=390) 12.0 GM/DL 13.7-17.5 HEMATOCRIT (BEAKER) (test puwg=056) 37.9 % 40.1-51.0 MEAN CORPUSCULAR VOLUME (BEAKER) (test qayv=502) 88.1 fL 79.0-92.2 MEAN CORPUSCULAR HEMOGLOBIN (BEAKER) (test 27.9 pg 25.7-32.2 xcts=824) MEAN CORPUSCULAR HEMOGLOBIN CONC (BEAKER) (test 31.7 GM/DL 32.3-36.5 fuzf=724) RED CELL DISTRIBUTION WIDTH (BEAKER) (test 15.0 % 11.6-14.4 zvhx=330) PLATELET COUNT (BEAKER) (test ztdp=633) 339 K/CU MM 150-450 MEAN PLATELET VOLUME (BEAKER) (test kduv=134) 11.5 fL 9.4-12.4 NUCLEATED RED BLOOD CELLS (BEAKER) (test 0 /100 WBC 0-0 zojs=751) POCT-GLUCOSE [id number] 23:49:00 Test Item Value Reference Range Comments POC-GLUCOSE METER (BEAKER) 230 mg/dL 70-110 TESTED AT [address] (test urwl=0556) [place] [id number] POCT-GLUCOSE [id number] 18:04:00 Test Item Value Reference Range Comments POC-GLUCOSE METER (BEAKER) 256 mg/dL 70-110 TESTED AT [address] (test nzzq=3420) [place] [address] URINALYSIS WITH MICROSCOPIC IF [id number] 14:11:00 Test Item Value Reference Range Comments COLOR (BEAKER) (test qgzd=982) Yellow CLARITY (BEAKER) (test aeyg=276) Hazy SPECIFIC GRAVITY UA (BEAKER) (test afgv=359) 1.016 1.001-1.035 PH UA (BEAKER) (test xnbi=721) 7.5 5.0-8.0 PROTEIN UA (BEAKER) (test qimv=015) Negative Negative GLUCOSE UA (BEAKER) (test netl=791) Negative Negative KETONES UA (BEAKER) (test qiea=989) Negative Negative BILIRUBIN UA (BEAKER) (test hebl=522) Negative Negative BLOOD UA (BEAKER) (test ybnt=857) Negative Negative NITRITE UA (BEAKER) (test wycr=690) Negative Negative LEUKOCYTE ESTERASE UA (BEAKER) (test sfmp=215) Negative Negative UROBILINOGEN UA (BEAKER) (test gpbh=984) 0.2 mg/dL 0.2-1.0 SOURCE(BEAKER) (test vist=9541) POCT-GLUCOSE [id number] 12:12:00 Test Item Value Reference Range Comments POC-GLUCOSE METER (BEAKER) 227 mg/dL 70-110 TESTED AT [address] (test osfb=0818) [place] [id number] POCT-GLUCOSE [id number] 11:58:00 Test Item Value Reference Range Comments POC-GLUCOSE METER (BEAKER) 243 mg/dL 70-110 TESTED AT [address] (test uehs=2858) [place] [address] BASIC METABOLIC [id number] 05:42:00 Test Item Value Reference Range Comments SODIUM (BEAKER) (test 140 meq/L 136-145 dirb=861) POTASSIUM (BEAKER) (test 4.5 meq/L 3.5-5.1 vufk=856) CHLORIDE (BEAKER) (test 105 meq/L 98-107 vdha=915) CO2 (BEAKER) (test 27 meq/L 22-29 lrvo=706) BLOOD UREA NITROGEN 40 mg/dL 7-21 (BEAKER) (test xhuv=478) CREATININE (BEAKER) (test 1.01 mg/dL 0.57-1.25 sxko=218) GLUCOSE RANDOM (BEAKER) 231 mg/dL 70-105 (test zyzb=311) CALCIUM (BEAKER) (test 9.4 mg/dL 8.4-10.2 jhoy=816) EGFR (BEAKER) (test 73 mL/min/1.73 sq m ESTIMATED GFR IS NOT pgdu=4252) ACCURATE CREATININE CLEARANCE IN PREDICTING GLOMERULAR FILTRATION RATE. ESTIMATED GFR IS NOT APPLICABLE FOR DIALYSIS PATIENTS. CBC (HEMOGRAM ONLY)2018-11-19 05:23:00 Test Item Value Reference Range Comments WHITE BLOOD CELL COUNT (BEAKER) (test tcpa=448) 11.9 K/ L 3.5-10.5 RED BLOOD CELL COUNT (BEAKER) (test wtbe=222) 4.05 M/ L 4.63-6.08 HEMOGLOBIN (BEAKER) (test xldm=983) 11.5 GM/DL 13.7-17.5 HEMATOCRIT (BEAKER) (test jpkf=459) 35.3 % 40.1-51.0 MEAN CORPUSCULAR VOLUME (BEAKER) (test rzug=347) 87.2 fL 79.0-92.2 MEAN CORPUSCULAR HEMOGLOBIN (BEAKER) (test 28.4 pg 25.7-32.2 wwaj=659) MEAN CORPUSCULAR HEMOGLOBIN CONC (BEAKER) (test 32.6 GM/DL 32.3-36.5 muib=975) RED CELL DISTRIBUTION WIDTH (BEAKER) (test 14.7 % 11.6-14.4 rjee=781) PLATELET COUNT (BEAKER) (test rfpi=600) 354 K/CU MM 150-450 MEAN PLATELET VOLUME (BEAKER) (test lpgs=753) 11.2 fL 9.4-12.4 NUCLEATED RED BLOOD CELLS (BEAKER) (test 0 /100 WBC 0-0 wqrd=971) POCT-GLUCOSE [id number] 17:25:00 Test Item Value Reference Range Comments POC-GLUCOSE METER (BEAKER) 267 mg/dL 70-110 TESTED AT [address] (test sjhc=7442) [place] [address] URINALYSIS W/ REFLEX URINE [id number] 14:12:00 Test Item Value Reference Range Comments COLOR (BEAKER) (test ftmz=748) Yellow CLARITY (BEAKER) (test agiq=193) Clear SPECIFIC GRAVITY UA (BEAKER) (test mnio=821) 1.018 1.001-1.035 PH UA (BEAKER) (test yyjm=225) 6.5 5.0-8.0 PROTEIN UA (BEAKER) (test mewa=343) 10 mg/dL Negative GLUCOSE UA (BEAKER) (test qeyo=899) Negative Negative KETONES UA (BEAKER) (test wret=962) Negative Negative BILIRUBIN UA (BEAKER) (test uoyi=520) Negative Negative BLOOD UA (BEAKER) (test hqsz=717) Negative Negative NITRITE UA (BEAKER) (test cbln=104) Positive Negative LEUKOCYTE ESTERASE UA (BEAKER) (test zkfg=929) Moderate Negative UROBILINOGEN UA (BEAKER) (test slpj=431) 0.2 mg/dL 0.2-1.0 RBC UA (BEAKER) (test qszc=069) < /HPF WBC UA (BEAKER) (test tkyc=059) 15 /HPF BACTERIA (BEAKER) (test amqp=504) Rare MUCUS (BEAKER) (test rmvu=4800) Rare YEAST (BEAKER) (test jpks=2827) Rare SOURCE(BEAKER) (test lmbe=5269) POCT-GLUCOSE [id number] 11:51:00 Test Item Value Reference Range Comments POC-GLUCOSE METER (BEAKER) 258 mg/dL 70-110 TESTED AT [address] (test eepb=1186) [place] [address] POCT-GLUCOSE [id number] 09:43:00 Test Item Value Reference Range Comments POC-GLUCOSE METER (BEAKER) 235 mg/dL 70-110 TESTED AT [address] (test vyfh=3681) [place] [address] TROPONIN [id number] 05:55:00 Test Item Value Reference Range Comments TROPONIN I (BEAKER) (test vvjw=010) 1.66 ng/mL 0.00-0.03 Troponin I (TnI) levels [...] acute neurological disease, and persistent tachyarrhythmia.BASIC METABOLIC [id number] 05:53:00 Test Item Value Reference Range Comments SODIUM (BEAKER) (test 139 meq/L 136-145 ofpc=888) POTASSIUM (BEAKER) (test 4.5 meq/L 3.5-5.1 Specimen slightly tuxt=055) hemolyzed CHLORIDE (BEAKER) (test 104 meq/L 98-107 abah=169) CO2 (BEAKER) (test 27 meq/L 22-29 lprp=811) BLOOD UREA NITROGEN 37 mg/dL 7-21 (BEAKER) (test kxvw=275) CREATININE (BEAKER) (test 0.98 mg/dL 0.57-1.25 Specimen slightly zutp=197) hemolyzed GLUCOSE RANDOM (BEAKER) 214 mg/dL 70-105 (test jors=592) CALCIUM (BEAKER) (test 9.4 mg/dL 8.4-10.2 qhal=897) EGFR (BEAKER) (test 76 mL/min/1.73 sq m ESTIMATED GFR IS NOT wzjf=9255) ACCURATE CREATININE CLEARANCE IN PREDICTING GLOMERULAR FILTRATION RATE. ESTIMATED GFR IS NOT APPLICABLE FOR DIALYSIS PATIENTS. CBC (HEMOGRAM ONLY)2018-11-18 05:27:00 Test Item Value Reference Range Comments WHITE BLOOD CELL COUNT (BEAKER) (test mpnj=296) 11.7 K/ L 3.5-10.5 RED BLOOD CELL COUNT (BEAKER) (test cohq=184) 4.10 M/ L 4.63-6.08 HEMOGLOBIN (BEAKER) (test eohs=647) 11.7 GM/DL 13.7-17.5 HEMATOCRIT (BEAKER) (test uqec=656) 35.6 % 40.1-51.0 MEAN CORPUSCULAR VOLUME (BEAKER) (test cwve=383) 86.8 fL 79.0-92.2 MEAN CORPUSCULAR HEMOGLOBIN (BEAKER) (test 28.5 pg 25.7-32.2 brbp=976) MEAN CORPUSCULAR HEMOGLOBIN CONC (BEAKER) (test 32.9 GM/DL 32.3-36.5 gynj=084) RED CELL DISTRIBUTION WIDTH (BEAKER) (test 14.6 % 11.6-14.4 zmft=962) PLATELET COUNT (BEAKER) (test auvn=489) 361 K/CU MM 150-450 MEAN PLATELET VOLUME (BEAKER) (test zntv=898) 11.1 fL 9.4-12.4 NUCLEATED RED BLOOD CELLS (BEAKER) (test 0 /100 WBC 0-0 mvvu=896) POCT-GLUCOSE [id number] 01:42:00 Test Item Value Reference Range Comments POC-GLUCOSE METER (BEAKER) 239 mg/dL 70-110 TESTED AT [facility] [address] [facility] (test cbvl=4560) [employer] [address] TROPONIN [id number] 00:15:00 Test Item Value Reference Range Comments TROPONIN I (BEAKER) (test owap=982) 1.73 ng/mL 0.00-0.03 Troponin I (TnI) levels [...] disease, and persistent tachyarrhythmia.URINALYSIS WITH MICROSCOPIC IF [id number] 00:06:00 Test Item Value Reference Range Comments COLOR (BEAKER) (test khsa=699) Yellow CLARITY (BEAKER) (test vxpg=804) Hazy SPECIFIC GRAVITY UA (BEAKER) (test lfca=317) 1.017 1.001-1.035 PH UA (BEAKER) (test fhzz=758) 6.5 5.0-8.0 PROTEIN UA (BEAKER) (test mseb=443) Negative Negative GLUCOSE UA (BEAKER) (test psag=895) Negative Negative KETONES UA (BEAKER) (test xlmi=574) Trace Negative BILIRUBIN UA (BEAKER) (test gsbr=682) Negative Negative BLOOD UA (BEAKER) (test clow=275) Negative Negative NITRITE UA (BEAKER) (test vwxj=361) Positive Negative LEUKOCYTE ESTERASE UA (BEAKER) (test bhjs=312) Small Negative UROBILINOGEN UA (BEAKER) (test osmw=550) 0.2 mg/dL 0.2-1.0 SOURCE(BEAKER) (test ooei=6694) URINALYSIS [id number] 00:06:00 Test Item Value Reference Range Comments RBC UA (BEAKER) (test qelk=955) 1 /HPF WBC UA (BEAKER) (test oxyn=621) 5 /HPF BACTERIA (BEAKER) (test szqk=503) Rare MUCUS (BEAKER) (test pwah=8463) Rare TROPONIN [id number] 18:49:00 Test Item Value Reference Range Comments TROPONIN I (BEAKER) (test kfar=155) 1.45 ng/mL 0.00-0.03 Troponin I (TnI) levels [...] acidosis, acute neurological disease, and persistent tachyarrhythmia.POCT-GLUCOSE [id number] 16:26:00 Test Item Value Reference Range Comments POC-GLUCOSE METER (BEAKER) 316 mg/dL 70-110 Notified JACLYN DUKES/TESTED AT [facility] (test kcji=4441) [address] [facility] [address] POCT-GLUCOSE [id number] 13:27:00 Test Item Value Reference Range Comments POC-GLUCOSE METER (BEAKER) 272 mg/dL 70-110 TESTED AT [address] (test wgvd=9609) [employer] [address] TROPONIN [id number] 11:19:00 Test Item Value Reference Range Comments TROPONIN I (BEAKER) (test desy=990) 0.84 ng/mL 0.00-0.03 Troponin I (TnI) levels [...] acute neurological disease, and persistent tachyarrhythmia.BASIC METABOLIC [id number] 07:39:00 Test Item Value Reference Range Comments SODIUM (BEAKER) (test 137 meq/L 136-145 vlwq=141) POTASSIUM (BEAKER) (test 4.6 meq/L 3.5-5.1 ewfw=193) CHLORIDE (BEAKER) (test 104 meq/L 98-107 sooa=842) CO2 (BEAKER) (test 24 meq/L 22-29 zegh=456) BLOOD UREA NITROGEN 35 mg/dL 7-21 (BEAKER) (test rxkj=797) CREATININE (BEAKER) (test 1.02 mg/dL 0.57-1.25 ttvl=295) GLUCOSE RANDOM (BEAKER) 242 mg/dL 70-105 (test sivb=437) CALCIUM (BEAKER) (test 9.5 mg/dL 8.4-10.2 oqov=135) EGFR (BEAKER) (test 72 mL/min/1.73 sq m ESTIMATED GFR IS NOT xoot=0124) ACCURATE CREATININE CLEARANCE IN PREDICTING GLOMERULAR FILTRATION RATE. ESTIMATED GFR IS NOT APPLICABLE FOR DIALYSIS PATIENTS. TROPONIN [id number] 06:49:00 Test Item Value Reference Range Comments TROPONIN I (BEAKER) (test ryfd=408) 0.23 ng/mL 0.00-0.03 Troponin I (TnI) levels [...] acidosis, acute neurological disease, and persistent tachyarrhythmia.POCT-GLUCOSE [id number] 05:50:00 Test Item Value Reference Range Comments POC-GLUCOSE METER (BEAKER) 244 mg/dL 70-110 TESTED AT [facility] [address] [facility] (test gddg=9697) [employer] [address] CBC (HEMOGRAM ONLY)2018-11-17 04:38:00 Test Item Value Reference Range Comments WHITE BLOOD CELL COUNT (BEAKER) (test xawx=264) 13.2 K/ L 3.5-10.5 RED BLOOD CELL COUNT (BEAKER) (test pfur=829) 4.23 M/ L 4.63-6.08 HEMOGLOBIN (BEAKER) (test lnpn=847) 11.9 GM/DL 13.7-17.5 HEMATOCRIT (BEAKER) (test fhau=948) 37.0 % 40.1-51.0 MEAN CORPUSCULAR VOLUME (BEAKER) (test mdnl=810) 87.5 fL 79.0-92.2 MEAN CORPUSCULAR HEMOGLOBIN (BEAKER) (test 28.1 pg 25.7-32.2 hmni=524) MEAN CORPUSCULAR HEMOGLOBIN CONC (BEAKER) (test 32.2 GM/DL 32.3-36.5 aafc=122) RED CELL DISTRIBUTION WIDTH (BEAKER) (test 14.8 % 11.6-14.4 dhfe=233) PLATELET COUNT (BEAKER) (test ehcm=893) 391 K/CU MM 150-450 MEAN PLATELET VOLUME (BEAKER) (test jdty=481) 10.7 fL 9.4-12.4 NUCLEATED RED BLOOD CELLS (BEAKER) (test 0 /100 WBC 0-0 uiou=957) POCT-GLUCOSE [id number] 23:38:00 Test Item Value Reference Range Comments POC-GLUCOSE METER (BEAKER) 232 mg/dL 70-110 TESTED AT [address] (test qsaf=6401) [place] [address] TROPONIN [id number] 18:59:00 Test Item Value Reference Range Comments TROPONIN I (BEAKER) (test udyy=480) 0.02 ng/mL 0.00-0.03 Troponin I (TnI) levels [...] acidosis, acute neurological disease, and persistent tachyarrhythmia.POCT-GLUCOSE [id number] 18:22:00 Test Item Value Reference Range Comments POC-GLUCOSE METER (BEAKER) 244 mg/dL 70-110 TESTED AT [address] (test xusa=0910) [place] [address] BASIC METABOLIC [id number] 06:29:00 Test Item Value Reference Range Comments SODIUM (BEAKER) (test 135 meq/L 136-145 gtgc=957) POTASSIUM (BEAKER) (test 4.5 meq/L 3.5-5.1 yhwg=903) CHLORIDE (BEAKER) (test 101 meq/L 98-107 uhfu=941) CO2 (BEAKER) (test 26 meq/L 22-29 ygcz=522) BLOOD UREA NITROGEN 35 mg/dL 7-21 (BEAKER) (test tnpw=859) CREATININE (BEAKER) (test 1.02 mg/dL 0.57-1.25 cuiy=772) GLUCOSE RANDOM (BEAKER) 218 mg/dL 70-105 (test vrzp=573) CALCIUM (BEAKER) (test 9.6 mg/dL 8.4-10.2 cwfe=542) EGFR (BEAKER) (test 72 mL/min/1.73 sq m ESTIMATED GFR IS NOT bdvl=8598) ACCURATE CREATININE CLEARANCE IN PREDICTING GLOMERULAR FILTRATION RATE. ESTIMATED GFR IS NOT APPLICABLE FOR DIALYSIS PATIENTS. CBC (HEMOGRAM ONLY)2018-11-16 06:02:00 Test Item Value Reference Range Comments WHITE BLOOD CELL COUNT (BEAKER) (test ucch=973) 11.8 K/ L 3.5-10.5 RED BLOOD CELL COUNT (BEAKER) (test ghiq=202) 4.32 M/ L 4.63-6.08 HEMOGLOBIN (BEAKER) (test dulr=813) 12.4 GM/DL 13.7-17.5 HEMATOCRIT (BEAKER) (test osxx=786) 37.3 % 40.1-51.0 MEAN CORPUSCULAR VOLUME (BEAKER) (test xbld=156) 86.3 fL 79.0-92.2 MEAN CORPUSCULAR HEMOGLOBIN (BEAKER) (test 28.7 pg 25.7-32.2 tmzv=191) MEAN CORPUSCULAR HEMOGLOBIN CONC (BEAKER) (test 33.2 GM/DL 32.3-36.5 kihn=070) RED CELL DISTRIBUTION WIDTH (BEAKER) (test 14.6 % 11.6-14.4 hzih=539) PLATELET COUNT (BEAKER) (test eiug=689) 379 K/CU MM 150-450 MEAN PLATELET VOLUME (BEAKER) (test weqj=970) 10.6 fL 9.4-12.4 NUCLEATED RED BLOOD CELLS (BEAKER) (test 0 /100 WBC 0-0 dbyz=173) POCT-GLUCOSE [id number] 05:53:00 Test Item Value Reference Range Comments POC-GLUCOSE METER (BEAKER) 208 mg/dL 70-110 TESTED AT [address] (test hamw=0183) [employer] [address] POCT-GLUCOSE [id number] 23:49:00 Test Item Value Reference Range Comments POC-GLUCOSE METER (BEAKER) 221 mg/dL 70-110 TESTED AT [address] (test mrwo=4255) [employer] [address] POCT-GLUCOSE [id number] 17:37:00 Test Item Value Reference Range Comments POC-GLUCOSE METER (BEAKER) 237 mg/dL 70-110 TESTED AT [address] (test sqez=0895) [employer] [address] POCT-GLUCOSE [id number] 12:33:00 Test Item Value Reference Range Comments POC-GLUCOSE METER (BEAKER) 223 mg/dL 70-110 TESTED AT [address] (test mwxg=7399) [employer] [address] POCT-GLUCOSE [id number] 06:38:00 Test Item Value Reference Range Comments POC-GLUCOSE METER (BEAKER) 247 mg/dL 70-110 TESTED AT [address] (test dnnz=4982) [employer] [address] BASIC METABOLIC [id number] 06:01:00 Test Item Value Reference Range Comments SODIUM (BEAKER) (test 135 meq/L 136-145 wndv=662) POTASSIUM (BEAKER) (test 4.7 meq/L 3.5-5.1 vbtf=100) CHLORIDE (BEAKER) (test 100 meq/L 98-107 gbdq=478) CO2 (BEAKER) (test 25 meq/L 22-29 tqrg=563) BLOOD UREA NITROGEN 29 mg/dL 7-21 (BEAKER) (test araa=429) CREATININE (BEAKER) (test 0.97 mg/dL 0.57-1.25 mzns=363) GLUCOSE RANDOM (BEAKER) 217 mg/dL 70-105 (test efiz=873) CALCIUM (BEAKER) (test 9.6 mg/dL 8.4-10.2 yqko=724) EGFR (BEAKER) (test 77 mL/min/1.73 sq m ESTIMATED GFR IS NOT cotl=7190) ACCURATE CREATININE CLEARANCE IN PREDICTING GLOMERULAR FILTRATION RATE. ESTIMATED GFR IS NOT APPLICABLE FOR DIALYSIS PATIENTS. CBC (HEMOGRAM ONLY)2018-11-15 05:41:00 Test Item Value Reference Range Comments WHITE BLOOD CELL COUNT (BEAKER) (test vetw=300) 12.0 K/ L 3.5-10.5 RED BLOOD CELL COUNT (BEAKER) (test gapp=228) 4.34 M/ L 4.63-6.08 HEMOGLOBIN (BEAKER) (test wvdv=755) 12.4 GM/DL 13.7-17.5 HEMATOCRIT (BEAKER) (test midv=531) 37.5 % 40.1-51.0 MEAN CORPUSCULAR VOLUME (BEAKER) (test xirb=996) 86.4 fL 79.0-92.2 MEAN CORPUSCULAR HEMOGLOBIN (BEAKER) (test 28.6 pg 25.7-32.2 zfso=006) MEAN CORPUSCULAR HEMOGLOBIN CONC (BEAKER) (test 33.1 GM/DL 32.3-36.5 rdrk=606) RED CELL DISTRIBUTION WIDTH (BEAKER) (test 14.6 % 11.6-14.4 gpmj=050) PLATELET COUNT (BEAKER) (test refv=342) 373 K/CU MM 150-450 MEAN PLATELET VOLUME (BEAKER) (test cjcp=166) 10.8 fL 9.4-12.4 NUCLEATED RED BLOOD CELLS (BEAKER) (test 0 /100 WBC 0-0 ezay=546) POCT-GLUCOSE [id number] 02:35:00 Test Item Value Reference Range Comments POC-GLUCOSE METER (BEAKER) 220 mg/dL 70-110 TESTED AT [address] (test mdxl=3811) [employer] [address] POCT-GLUCOSE [id number] 16:55:00 Test Item Value Reference Range Comments POC-GLUCOSE METER (BEAKER) 239 mg/dL 70-110 TESTED AT [address] (test cesy=6511) [employer] [address] POCT-GLUCOSE [id number] 12:09:00 Test Item Value Reference Range Comments POC-GLUCOSE METER (BEAKER) 246 mg/dL 70-110 TESTED AT [address] (test oxhg=9652) [place] [id number] BASIC METABOLIC [id number] 05:52:00 Test Item Value Reference Range Comments SODIUM (BEAKER) (test 137 meq/L 136-145 agvj=577) POTASSIUM (BEAKER) (test 4.2 meq/L 3.5-5.1 hllx=065) CHLORIDE (BEAKER) (test 101 meq/L 98-107 uenc=663) CO2 (BEAKER) (test 29 meq/L 22-29 mnvy=061) BLOOD UREA NITROGEN 26 mg/dL 7-21 (BEAKER) (test yhfu=555) CREATININE (BEAKER) (test 0.93 mg/dL 0.57-1.25 ymvh=522) GLUCOSE RANDOM (BEAKER) 209 mg/dL 70-105 (test bzwe=440) CALCIUM (BEAKER) (test 9.7 mg/dL 8.4-10.2 teqz=626) EGFR (BEAKER) (test 80 mL/min/1.73 sq m ESTIMATED GFR IS NOT ubrq=2114) ACCURATE CREATININE CLEARANCE IN PREDICTING GLOMERULAR FILTRATION RATE. ESTIMATED GFR IS NOT APPLICABLE FOR DIALYSIS PATIENTS. POCT-GLUCOSE [id number] 05:37:00 Test Item Value Reference Range Comments POC-GLUCOSE METER (BEAKER) 181 mg/dL 70-110 TESTED AT [address] (test jjrc=9917) [place] [address] CBC (HEMOGRAM ONLY)2018-11-14 05:37:00 Test Item Value Reference Range Comments WHITE BLOOD CELL COUNT (BEAKER) (test odnm=830) 10.7 K/ L 3.5-10.5 RED BLOOD CELL COUNT (BEAKER) (test napq=724) 4.16 M/ L 4.63-6.08 HEMOGLOBIN (BEAKER) (test agoh=846) 11.8 GM/DL 13.7-17.5 HEMATOCRIT (BEAKER) (test kcpz=116) 36.1 % 40.1-51.0 MEAN CORPUSCULAR VOLUME (BEAKER) (test hnkg=232) 86.8 fL 79.0-92.2 MEAN CORPUSCULAR HEMOGLOBIN (BEAKER) (test 28.4 pg 25.7-32.2 lfxg=806) MEAN CORPUSCULAR HEMOGLOBIN CONC (BEAKER) (test 32.7 GM/DL 32.3-36.5 rmvm=310) RED CELL DISTRIBUTION WIDTH (BEAKER) (test 14.6 % 11.6-14.4 nofw=054) PLATELET COUNT (BEAKER) (test qgbx=968) 331 K/CU MM 150-450 MEAN PLATELET VOLUME (BEAKER) (test cdki=784) 10.5 fL 9.4-12.4 NUCLEATED RED BLOOD CELLS (BEAKER) (test 0 /100 WBC 0-0 dxrj=450) POCT-GLUCOSE [id number] 00:10:00 Test Item Value Reference Range Comments POC-GLUCOSE METER (BEAKER) 225 mg/dL 70-110 TESTED AT [address] (test wtid=6455) [place] [address] POCT-GLUCOSE [id number] 17:58:00 Test Item Value Reference Range Comments POC-GLUCOSE METER (BEAKER) 221 mg/dL 70-110 TESTED AT [address] (test dmjt=8777) [place] [address] CT, SPINE, CERVICAL, WO [id number] 15:33:00FINAL REPORT EXAM: CERVICAL SPINE CT WITHOUT [...] or traumatic malalignment. Signed: JR Stein Robert MDReport Verified Date/ Time: 11/13/2018 15:33:48 Reading Location: [facility] Radiology Reading Room CT, BRAIN, WITHOUT [id number] 15:22:00FINAL REPORT CT head without contrast. Reason [...] amount of petechial hemorrhage. Signed: Bethany Parker Verified Date/Time: 11/13/2018 15:22:34 Reading Location: [facility] [id number] Consult Reading Room POCT-GLUCOSE [id number] 12:10:00 Test Item Value Reference Range Comments POC-GLUCOSE METER (BEAKER) 218 mg/dL 70-110 TESTED AT [address] (test appn=6563) [employer] [address] BASIC METABOLIC [id number] 08:05:00 Test Item Value Reference Range Comments SODIUM (BEAKER) (test 135 meq/L 136-145 gxek=168) POTASSIUM (BEAKER) (test 4.7 meq/L 3.5-5.1 oaws=579) CHLORIDE (BEAKER) (test 101 meq/L 98-107 ltlg=680) CO2 (BEAKER) (test 28 meq/L 22-29 okgx=838) BLOOD UREA NITROGEN 21 mg/dL 7-21 (BEAKER) (test wtpz=399) CREATININE (BEAKER) (test 0.87 mg/dL 0.57-1.25 zrxb=451) GLUCOSE RANDOM (BEAKER) 206 mg/dL 70-105 (test rpnp=355) CALCIUM (BEAKER) (test 9.8 mg/dL 8.4-10.2 hgsy=888) EGFR (BEAKER) (test 87 mL/min/1.73 sq m ESTIMATED GFR IS NOT hafc=0188) ACCURATE CREATININE CLEARANCE IN PREDICTING GLOMERULAR FILTRATION RATE. ESTIMATED GFR IS NOT APPLICABLE FOR DIALYSIS PATIENTS. CBC W/PLT COUNT & AUTO [id number] 08:02:00 Test Item Value Reference Range Comments WHITE BLOOD CELL COUNT (BEAKER) (test chja=912) 13.4 K/ L 3.5-10.5 RED BLOOD CELL COUNT (BEAKER) (test pixu=398) 4.20 M/ L 4.63-6.08 HEMOGLOBIN (BEAKER) (test nnrm=723) 11.9 GM/DL 13.7-17.5 HEMATOCRIT (BEAKER) (test sxpg=751) 36.1 % 40.1-51.0 MEAN CORPUSCULAR VOLUME (BEAKER) (test wgut=068) 86.0 fL 79.0-92.2 MEAN CORPUSCULAR HEMOGLOBIN (BEAKER) (test 28.3 pg 25.7-32.2 rcti=300) MEAN CORPUSCULAR HEMOGLOBIN CONC (BEAKER) (test 33.0 GM/DL 32.3-36.5 twjc=545) RED CELL DISTRIBUTION WIDTH (BEAKER) (test 14.6 % 11.6-14.4 lrmd=042) PLATELET COUNT (BEAKER) (test lbmu=748) 333 K/CU MM 150-450 MEAN PLATELET VOLUME (BEAKER) (test nizu=868) 10.3 fL 9.4-12.4 NUCLEATED RED BLOOD CELLS (BEAKER) (test 0 /100 WBC 0-0 onvo=922) NEUTROPHILS RELATIVE PERCENT (BEAKER) (test 80 % kgpl=032) LYMPHOCYTES RELATIVE PERCENT (BEAKER) (test 11 % eava=229) MONOCYTES RELATIVE PERCENT (BEAKER) (test 6 % kjea=013) EOSINOPHILS RELATIVE PERCENT (BEAKER) (test 3 % ogmh=058) BASOPHILS RELATIVE PERCENT (BEAKER) (test 0 % wsuk=826) NEUTROPHILS ABSOLUTE COUNT (BEAKER) (test 10.63 K/ L 1.78-5.38 ozoj=456) LYMPHOCYTES ABSOLUTE COUNT (BEAKER) (test 1.52 K/ L 1.32-3.57 axwv=396) MONOCYTES ABSOLUTE COUNT (BEAKER) (test 0.76 K/ L 0.30-0.82 dada=303) EOSINOPHILS ABSOLUTE COUNT (BEAKER) (test 0.35 K/ L 0.04-0.54 dsly=554) BASOPHILS ABSOLUTE COUNT (BEAKER) (test 0.04 K/ L 0.01-0.08 pbzb=286) IMMATURE GRANULOCYTES-RELATIVE PERCENT (BEAKER) 1 % 0-1 (test uocr=2329) POCT-GLUCOSE [id number] 05:35:00 Test Item Value Reference Range Comments POC-GLUCOSE METER (BEAKER) 190 mg/dL 70-110 TESTED AT [address] (test klfx=4401) [employer] [address] POCT-GLUCOSE [id number] 00:25:00 Test Item Value Reference Range Comments POC-GLUCOSE METER (BEAKER) 193 mg/dL 70-110 TESTED AT [address] [address] (test qifz=4306) [employer] [address] POCT-GLUCOSE [id number] 18:09:00 Test Item Value Reference Range Comments POC-GLUCOSE METER (BEAKER) 204 mg/dL 70-110 TESTED AT [address] (test kpbx=1135) [employer] [address] CORDELIA, CAROTID STENT W [id number] 14:42:00Reason for exam:->R carotid stent for carotid stenosisFINAL REPORT DATE OF PROCEDURE: 11/07/2018 SURGEON: Garrett Echevarria M.D. TREATING AND PUMPING SUPERVISOR: Lon Lopez MD PREOPERATIVE DIAGNOSIS: Right hemispheric stroke with severe right carotid artery stenosis POST OPERATIVE DIAGNOSIS: Right hemispheric stroke with severe right carotid artery stenosis OPERATION: 1) Cerebral Angiogram2) right carotid stent IMPLANTS: Precise Pro Stent [id number] stent 8-6 x 40 ANESTHESIA: Moderate sedation [...] Serial dilation was performedand then a 9 Wallisian short sheath was placed in the right common femoral artery and placed on heparinized flush. Angiography was performed via the sheath confirmed satisfactory placement. A 5 Wallisian diagnostic glide catheter was then used to [...] MDReport Verified Date/Time: 2018 14:42:01 Reading Location: [place] [address] Neuro Angio Reading Room NV, ANGIOGRAM, [id number] 14:41:00Reason for exam:->right ICA stenosisFINAL REPORT DATE [...] removed and hemostasis was achieved with a 6-Wallisian AngioSeal closuredevice. The patient tolerated the procedure [...] Verified Date/Time: 11/12/2018 14:41 :58 [facility] POCT-GLUCOSE [id number] 12:37:00 Test Item Value Reference Range Comments POC-GLUCOSE METER (BEAKER) 157 mg/dL 70-110 TESTED AT [address] (test nazo=2288) [employer] [address] POCT-GLUCOSE [id number] 06:41:00 Test Item Value Reference Range Comments POC-GLUCOSE METER (BEAKER) 176 mg/dL 70-110 TESTED AT [address] (test oddc=0407) [place] [id number] BASIC METABOLIC [id number] 06:30:00 Test Item Value Reference Range Comments SODIUM (BEAKER) (test 133 meq/L 136-145 qoau=696) POTASSIUM (BEAKER) (test 4.3 meq/L 3.5-5.1 zbys=313) CHLORIDE (BEAKER) (test 101 meq/L 98-107 cjqq=789) CO2 (BEAKER) (test 25 meq/L 22-29 naxe=685) BLOOD UREA NITROGEN 18 mg/dL 7-21 (BEAKER) (test rsnv=257) CREATININE (BEAKER) (test 0.81 mg/dL 0.57-1.25 ynng=925) GLUCOSE RANDOM (BEAKER) 180 mg/dL 70-105 (test slvs=705) CALCIUM (BEAKER) (test 9.4 mg/dL 8.4-10.2 nudk=326) EGFR (BEAKER) (test 94 mL/min/1.73 sq m ESTIMATED GFR IS NOT hlsa=9398) ACCURATE CREATININE CLEARANCE IN PREDICTING GLOMERULAR FILTRATION RATE. ESTIMATED GFR IS NOT APPLICABLE FOR DIALYSIS PATIENTS. CBC (HEMOGRAM ONLY)2018-11-12 05:08:00 Test Item Value Reference Range Comments WHITE BLOOD CELL COUNT (BEAKER) (test kvnx=406) 13.4 K/ L 3.5-10.5 RED BLOOD CELL COUNT (BEAKER) (test baav=299) 3.94 M/ L 4.63-6.08 HEMOGLOBIN (BEAKER) (test cxak=421) 11.3 GM/DL 13.7-17.5 HEMATOCRIT (BEAKER) (test kale=444) 33.9 % 40.1-51.0 MEAN CORPUSCULAR VOLUME (BEAKER) (test fzkz=151) 86.0 fL 79.0-92.2 MEAN CORPUSCULAR HEMOGLOBIN (BEAKER) (test 28.7 pg 25.7-32.2 xlsr=988) MEAN CORPUSCULAR HEMOGLOBIN CONC (BEAKER) (test 33.3 GM/DL 32.3-36.5 pgdf=684) RED CELL DISTRIBUTION WIDTH (BEAKER) (test 14.6 % 11.6-14.4 rrso=877) PLATELET COUNT (BEAKER) (test bfvs=142) 298 K/CU MM 150-450 MEAN PLATELET VOLUME (BEAKER) (test csbb=867) 10.1 fL 9.4-12.4 NUCLEATED RED BLOOD CELLS (BEAKER) (test 0 /100 WBC 0-0 sbub=038) POCT-GLUCOSE [id number] 00:14:00 Test Item Value Reference Range Comments POC-GLUCOSE METER (BEAKER) 199 mg/dL 70-110 TESTED AT [address] (test nhvy=1054) [place] [address] POCT-GLUCOSE [id number] 17:13:00 Test Item Value Reference Range Comments POC-GLUCOSE METER (BEAKER) 221 mg/dL 70-110 TESTED AT [address] (test xzlz=6352) [place] [address] POCT-GLUCOSE [id number] 12:47:00 Test Item Value Reference Range Comments POC-GLUCOSE METER (BEAKER) 184 mg/dL 70-110 TESTED AT [address] (test tpvn=0305) [place] [address] BASIC METABOLIC [id number] 06:22:00 Test Item Value Reference Range Comments SODIUM (BEAKER) (test 137 meq/L 136-145 ihsf=608) POTASSIUM (BEAKER) (test 4.3 meq/L 3.5-5.1 sggo=522) CHLORIDE (BEAKER) (test 103 meq/L 98-107 ffzq=225) CO2 (BEAKER) (test 25 meq/L 22-29 tuwr=547) BLOOD UREA NITROGEN 22 mg/dL 7-21 (BEAKER) (test fatl=662) CREATININE (BEAKER) (test 0.82 mg/dL 0.57-1.25 uqpj=913) GLUCOSE RANDOM (BEAKER) 168 mg/dL 70-105 (test fpij=437) CALCIUM (BEAKER) (test 9.3 mg/dL 8.4-10.2 ziww=907) EGFR (BEAKER) (test 93 mL/min/1.73 sq m ESTIMATED GFR IS NOT uwnk=1594) ACCURATE CREATININE CLEARANCE IN PREDICTING GLOMERULAR FILTRATION RATE. ESTIMATED GFR IS NOT APPLICABLE FOR DIALYSIS PATIENTS. POCT-GLUCOSE [id number] 06:07:00 Test Item Value Reference Range Comments POC-GLUCOSE METER (BEAKER) 183 mg/dL 70-110 TESTED AT [address] (test ukfb=0461) [place] [id number] CBC (HEMOGRAM ONLY)2018-11-11 05:13:00 Test Item Value Reference Range Comments WHITE BLOOD CELL COUNT (BEAKER) (test sjxo=162) 15.3 K/ L 3.5-10.5 RED BLOOD CELL COUNT (BEAKER) (test vkes=506) 4.19 M/ L 4.63-6.08 HEMOGLOBIN (BEAKER) (test lvub=483) 12.0 GM/DL 13.7-17.5 HEMATOCRIT (BEAKER) (test gwdy=546) 36.2 % 40.1-51.0 MEAN CORPUSCULAR VOLUME (BEAKER) (test ojce=235) 86.4 fL 79.0-92.2 MEAN CORPUSCULAR HEMOGLOBIN (BEAKER) (test 28.6 pg 25.7-32.2 zllx=510) MEAN CORPUSCULAR HEMOGLOBIN CONC (BEAKER) (test 33.1 GM/DL 32.3-36.5 kbgc=182) RED CELL DISTRIBUTION WIDTH (BEAKER) (test 14.7 % 11.6-14.4 gcyb=943) PLATELET COUNT (BEAKER) (test jtww=300) 287 K/CU MM 150-450 MEAN PLATELET VOLUME (BEAKER) (test tgjy=454) 10.5 fL 9.4-12.4 NUCLEATED RED BLOOD CELLS (BEAKER) (test 0 /100 WBC 0-0 gzfw=215) POCT-GLUCOSE [id number] 00:14:00 Test Item Value Reference Range Comments POC-GLUCOSE METER (BEAKER) 176 mg/dL 70-110 TESTED AT [address] (test hmws=2197) [place] [id number] POCT-GLUCOSE [id number] 17:43:00 Test Item Value Reference Range Comments POC-GLUCOSE METER (BEAKER) 195 mg/dL 70-110 TESTED AT [address] (test ewfp=1942) [place] [id number] POCT-GLUCOSE [id number] 12:08:00 Test Item Value Reference Range Comments POC-GLUCOSE METER (BEAKER) 170 mg/dL 70-110 TESTED AT [address] (test zrix=8770) [employer] [address] BASIC METABOLIC [id number] 07:13:00 Test Item Value Reference Range Comments SODIUM (BEAKER) (test 135 meq/L 136-145 hbjh=886) POTASSIUM (BEAKER) (test 4.0 meq/L 3.5-5.1 ovtp=552) CHLORIDE (BEAKER) (test 105 meq/L 98-107 liir=362) CO2 (BEAKER) (test 22 meq/L 22-29 vgph=985) BLOOD UREA NITROGEN 18 mg/dL 7-21 (BEAKER) (test egcd=393) CREATININE (BEAKER) (test 0.82 mg/dL 0.57-1.25 hgvn=657) GLUCOSE RANDOM (BEAKER) 163 mg/dL 70-105 (test nzyy=828) CALCIUM (BEAKER) (test 9.4 mg/dL 8.4-10.2 xuap=541) EGFR (BEAKER) (test 93 mL/min/1.73 sq m ESTIMATED GFR IS NOT tckt=8449) ACCURATE CREATININE CLEARANCE IN PREDICTING GLOMERULAR FILTRATION RATE. ESTIMATED GFR IS NOT APPLICABLE FOR DIALYSIS PATIENTS. POCT-GLUCOSE [id number] 06:08:00 Test Item Value Reference Range Comments POC-GLUCOSE METER (BEAKER) 178 mg/dL 70-110 TESTED AT [address] (test lsyy=7752) [employer] [address] CBC (HEMOGRAM ONLY)2018 05:55:00 Test Item Value Reference Range Comments WHITE BLOOD CELL COUNT (BEAKER) (test qljt=523) 15.6 K/ L 3.5-10.5 RED BLOOD CELL COUNT (BEAKER) (test wsgn=811) 4.18 M/ L 4.63-6.08 HEMOGLOBIN (BEAKER) (test cltf=398) 11.9 GM/DL 13.7-17.5 HEMATOCRIT (BEAKER) (test islw=413) 35.8 % 40.1-51.0 MEAN CORPUSCULAR VOLUME (BEAKER) (test zqco=564) 85.6 fL 79.0-92.2 MEAN CORPUSCULAR HEMOGLOBIN (BEAKER) (test 28.5 pg 25.7-32.2 kftj=460) MEAN CORPUSCULAR HEMOGLOBIN CONC (BEAKER) (test 33.2 GM/DL 32.3-36.5 dwis=911) RED CELL DISTRIBUTION WIDTH (BEAKER) (test 14.6 % 11.6-14.4 pusm=753) PLATELET COUNT (BEAKER) (test unor=937) 292 K/CU MM 150-450 MEAN PLATELET VOLUME (BEAKER) (test fvcb=046) 10.5 fL 9.4-12.4 NUCLEATED RED BLOOD CELLS (BEAKER) (test 0 /100 WBC 0-0 rdiy=642) POCT-GLUCOSE [id number] 01:11:00 Test Item Value Reference Range Comments POC-GLUCOSE METER (BEAKER) 160 mg/dL 70-110 TESTED AT [place] [id number] [facility] (test iawm=1771) [place] [address] POCT-GLUCOSE [id number] 12:18:00 Test Item Value Reference Range Comments POC-GLUCOSE METER (BEAKER) 147 mg/dL 70-110 TESTED AT [address] (test cdro=8396) [place] [address] POCT-GLUCOSE [id number] 08:20:00 Test Item Value Reference Range Comments POC-GLUCOSE METER (BEAKER) 155 mg/dL 70-110 TESTED AT [address] (test ifsk=1350) [employer] [address] BASIC METABOLIC [id number] 06:07:00 Test Item Value Reference Range Comments SODIUM (BEAKER) (test 135 meq/L 136-145 cemr=459) POTASSIUM (BEAKER) (test 4.3 meq/L 3.5-5.1 ztcl=112) CHLORIDE (BEAKER) (test 106 meq/L 98-107 bzrl=922) CO2 (BEAKER) (test 20 meq/L 22-29 xhep=337) BLOOD UREA NITROGEN 18 mg/dL 7-21 (BEAKER) (test fmzr=435) CREATININE (BEAKER) (test 0.82 mg/dL 0.57-1.25 ztym=822) GLUCOSE RANDOM (BEAKER) 161 mg/dL 70-105 (test hgtt=445) CALCIUM (BEAKER) (test 9.1 mg/dL 8.4-10.2 mxpy=131) EGFR (BEAKER) (test 93 mL/min/1.73 sq m ESTIMATED GFR IS NOT zgqe=1032) ACCURATE CREATININE CLEARANCE IN PREDICTING GLOMERULAR FILTRATION RATE. ESTIMATED GFR IS NOT APPLICABLE FOR DIALYSIS PATIENTS. CBC (HEMOGRAM ONLY)2018-11-09 05:28:00 Test Item Value Reference Range Comments WHITE BLOOD CELL COUNT (BEAKER) (test drbq=094) 12.9 K/ L 3.5-10.5 RED BLOOD CELL COUNT (BEAKER) (test yvnw=012) 3.99 M/ L 4.63-6.08 HEMOGLOBIN (BEAKER) (test nnmo=773) 11.5 GM/DL 13.7-17.5 HEMATOCRIT (BEAKER) (test bbqb=164) 33.8 % 40.1-51.0 MEAN CORPUSCULAR VOLUME (BEAKER) (test lmdh=537) 84.7 fL 79.0-92.2 MEAN CORPUSCULAR HEMOGLOBIN (BEAKER) (test 28.8 pg 25.7-32.2 qyxj=605) MEAN CORPUSCULAR HEMOGLOBIN CONC (BEAKER) (test 34.0 GM/DL 32.3-36.5 otxx=358) RED CELL DISTRIBUTION WIDTH (BEAKER) (test 14.3 % 11.6-14.4 vmdy=943) PLATELET COUNT (BEAKER) (test lwar=676) 252 K/CU MM 150-450 MEAN PLATELET VOLUME (BEAKER) (test kdnm=049) 10.0 fL 9.4-12.4 NUCLEATED RED BLOOD CELLS (BEAKER) (test 0 /100 WBC 0-0 eiey=020) POCT-GLUCOSE [id number] 23:57:00 Test Item Value Reference Range Comments POC-GLUCOSE METER (BEAKER) 140 mg/dL 70-110 TESTED AT [address] (test mqqo=9291) [place] [address] POCT-GLUCOSE [id number] 17:30:00 Test Item Value Reference Range Comments POC-GLUCOSE METER (BEAKER) 127 mg/dL 70-110 TESTED AT [address] (test puaf=8131) [place] [address] POCT-GLUCOSE [id number] 11:54:00 Test Item Value Reference Range Comments POC-GLUCOSE METER (BEAKER) 133 mg/dL 70-110 TESTED AT [address] (test idfp=1470) [place] [address] POCT-GLUCOSE [id number] 06:37:00 Test Item Value Reference Range Comments POC-GLUCOSE METER (BEAKER) 110 mg/dL 70-110 TESTED AT [address] (test ubjx=6748) [employer] [address] BASIC METABOLIC [id number] 06:28:00 Test Item Value Reference Range Comments SODIUM (BEAKER) (test 136 meq/L 136-145 cjlo=320) POTASSIUM (BEAKER) (test 4.4 meq/L 3.5-5.1 hrah=347) CHLORIDE (BEAKER) (test 110 meq/L 98-107 xaxr=647) CO2 (BEAKER) (test 20 meq/L 22-29 upce=067) BLOOD UREA NITROGEN 15 mg/dL 7-21 (BEAKER) (test frkf=571) CREATININE (BEAKER) (test 0.74 mg/dL 0.57-1.25 psuy=811) GLUCOSE RANDOM (BEAKER) 112 mg/dL 70-105 (test tbng=746) CALCIUM (BEAKER) (test 8.5 mg/dL 8.4-10.2 ybut=931) EGFR (BEAKER) (test 105 mL/min/1.73 sq m ESTIMATED GFR IS NOT xrxg=1031) ACCURATE CREATININE CLEARANCE IN PREDICTING GLOMERULAR FILTRATION RATE. ESTIMATED GFR IS NOT APPLICABLE FOR DIALYSIS PATIENTS. CBC (HEMOGRAM ONLY)2018-11-08 05:44:00 Test Item Value Reference Range Comments WHITE BLOOD CELL COUNT (BEAKER) (test mmdd=457) 11.0 K/ L 3.5-10.5 RED BLOOD CELL COUNT (BEAKER) (test qutb=626) 3.99 M/ L 4.63-6.08 HEMOGLOBIN (BEAKER) (test yizp=040) 11.5 GM/DL 13.7-17.5 HEMATOCRIT (BEAKER) (test euba=761) 34.2 % 40.1-51.0 MEAN CORPUSCULAR VOLUME (BEAKER) (test vjvz=962) 85.7 fL 79.0-92.2 MEAN CORPUSCULAR HEMOGLOBIN (BEAKER) (test 28.8 pg 25.7-32.2 lyyd=278) MEAN CORPUSCULAR HEMOGLOBIN CONC (BEAKER) (test 33.6 GM/DL 32.3-36.5 rehn=860) RED CELL DISTRIBUTION WIDTH (BEAKER) (test 14.6 % 11.6-14.4 pdxa=092) PLATELET COUNT (BEAKER) (test sqbp=177) 256 K/CU MM 150-450 MEAN PLATELET VOLUME (BEAKER) (test nqti=307) 10.4 fL 9.4-12.4 NUCLEATED RED BLOOD CELLS (BEAKER) (test 0 /100 WBC 0-0 pahj=330) POCT-GLUCOSE [id number] 01:21:00 Test Item Value Reference Range Comments POC-GLUCOSE METER (BEAKER) 131 mg/dL 70-110 TESTED AT [address] (test cwwz=3533) [place] [address] POCT-GLUCOSE [id number] 18:16:00 Test Item Value Reference Range Comments POC-GLUCOSE METER (BEAKER) 159 mg/dL 70-110 TESTED AT [address] (test jiav=8049) [place] [address] [id number] 15:58:00 Test Item Value Reference Range Comments ACTIVATED CLOTTING TIME 252 sec TESTED AT [address] (BEAKER) (test bmpl=886) [place] [address] POCT-GLUCOSE [id number] 13:49:00 Test Item Value Reference Range Comments POC-GLUCOSE METER (BEAKER) 155 mg/dL 70-110 TESTED AT [address] (test fsdh=0345) [place] [address] POCT-P2Y12 PLATELET [id number] 12:44:00 Test Item Value Reference Range Comments POC-P2Y12 PLATELET AGG (BEAKER) (test efpq=6320) 83 PRU RANGE INFORMATION: PRU reference range is 194-418. Post Drug Results: Lower PRU levels are associated with expected antiplatelet effect. Values may be below the stated reference range above. The post-drug PRU values reported in the Ver[employer]Now P2Y12 package insert are [id number].CT, BRAIN, WITHOUT [id number] 09:26:00FINAL REPORT CT, BRAIN, WITHOUT CONTRAST CLINICAL [...] is recommended for further characterization. Signed: JR Emil, Keenan Navarro Verified Date/Time: 11/07/2018 09:26:55 Reading Location: [address] Neuro Reading Room POCT-GLUCOSE [id number] 06:41:00 Test Item Value Reference Range Comments POC-GLUCOSE METER (BEAKER) 186 mg/dL 70-110 TESTED AT [address] (test rkom=3759) [employer] [address] POCT-P2Y12 PLATELET [id number] 06:16:00 Test Item Value Reference Range Comments POC-P2Y12 PLATELET AGG (BEAKER) (test fuwy=9198) 247 PRU RANGE INFORMATION: PRU reference range is 194-418. Post Drug Results: Lower PRU levels are associated with expected antiplatelet effect. Values may be below the stated reference range above. The post-drug PRU values reported in the Ver[employer]Now P2Y12 package insert are [id number].BASIC METABOLIC [id number] 06:01: 00 Test Item Value Reference Range Comments SODIUM (BEAKER) (test 134 meq/L 136-145 xshu=293) POTASSIUM (BEAKER) (test 4.3 meq/L 3.5-5.1 dder=866) CHLORIDE (BEAKER) (test 108 meq/L 98-107 emiq=038) CO2 (BEAKER) (test 19 meq/L 22-29 ldvg=594) BLOOD UREA NITROGEN 15 mg/dL 7-21 (BEAKER) (test fuqt=680) CREATININE (BEAKER) (test 0.82 mg/dL 0.57-1.25 zjpf=620) GLUCOSE RANDOM (BEAKER) 200 mg/dL 70-105 (test qfnl=052) CALCIUM (BEAKER) (test 9.1 mg/dL 8.4-10.2 ehbi=847) EGFR (BEAKER) (test 93 mL/min/1.73 sq m ESTIMATED GFR IS NOT gghq=7304) ACCURATE CREATININE CLEARANCE IN PREDICTING GLOMERULAR FILTRATION RATE. ESTIMATED GFR IS NOT APPLICABLE FOR DIALYSIS PATIENTS. CBC (HEMOGRAM ONLY)2018-11-07 05:38:00 Test Item Value Reference Range Comments WHITE BLOOD CELL COUNT (BEAKER) (test qmug=935) 9.3 K/ L 3.5-10.5 RED BLOOD CELL COUNT (BEAKER) (test somw=860) 4.28 M/ L 4.63-6.08 HEMOGLOBIN (BEAKER) (test zufj=735) 12.3 GM/DL 13.7-17.5 HEMATOCRIT (BEAKER) (test joya=015) 37.2 % 40.1-51.0 MEAN CORPUSCULAR VOLUME (BEAKER) (test vnck=134) 86.9 fL 79.0-92.2 MEAN CORPUSCULAR HEMOGLOBIN (BEAKER) (test 28.7 pg 25.7-32.2 nbez=152) MEAN CORPUSCULAR HEMOGLOBIN CONC (BEAKER) (test 33.1 GM/DL 32.3-36.5 rkqi=635) RED CELL DISTRIBUTION WIDTH (BEAKER) (test 14.6 % 11.6-14.4 bubr=255) PLATELET COUNT (BEAKER) (test odis=615) 218 K/CU MM 150-450 MEAN PLATELET VOLUME (BEAKER) (test jnzp=022) 10.5 fL 9.4-12.4 NUCLEATED RED BLOOD CELLS (BEAKER) (test 0 /100 WBC 0-0 vtoq=201) POCT-GLUCOSE [id number] 23:34:00 Test Item Value Reference Range Comments POC-GLUCOSE METER (BEAKER) 173 mg/dL 70-110 TESTED AT [facility] [address] [facility] (test npfm=4568) [employer] [address] RAD, ABDOMEN/KUB, 1 VIEW [id number] 19:42:00Reason for exam:->verify corpak placementShould this be [...] MDReport Verified Date/Time: 11/06/2018 19:42:40 Reading Location: [address] Reading Room POCT-GLUCOSE [id number] 18:59:00 Test Item Value Reference Range Comments POC-GLUCOSE METER (BEAKER) 143 mg/dL 70-110 TESTED AT [address] (test dzio=0219) [place] [address] POCT-GLUCOSE [id number] 14:46:00 Test Item Value Reference Range Comments POC-GLUCOSE METER (BEAKER) 169 mg/dL 70-110 TESTED AT [address] (test emxo=9258) [place] [address] FL, ESOPH, SWALLOW FUNCTION, WITH CINE OR [id number] 14:10:00Reason for exam:->dysphagiaFINAL REPORT Modified barium swallow [...] MDReport Verified Date/Time: 11/06/2018 14:10:54 Reading Location: [facility] C013X [facility] Reading Room [facility] METABOLIC [id number] 06:28:00 Test Item Value Reference Range Comments SODIUM (BEAKER) (test 136 meq/L 136-145 hbqe=429) POTASSIUM (BEAKER) (test 4.1 meq/L 3.5-5.1 bctd=075) CHLORIDE (BEAKER) (test 106 meq/L 98-107 hamp=697) CO2 (BEAKER) (test 23 meq/L 22-29 hyxs=355) BLOOD UREA NITROGEN 17 mg/dL 7-21 (BEAKER) (test tzkx=558) CREATININE (BEAKER) (test 0.77 mg/dL 0.57-1.25 iazr=038) GLUCOSE RANDOM (BEAKER) 215 mg/dL 70-105 (test ptcy=759) CALCIUM (BEAKER) (test 8.9 mg/dL 8.4-10.2 zuah=709) EGFR (BEAKER) (test 100 mL/min/1.73 sq m ESTIMATED GFR IS NOT jwsx=6754) ACCURATE CREATININE CLEARANCE IN PREDICTING GLOMERULAR FILTRATION RATE. ESTIMATED GFR IS NOT APPLICABLE FOR DIALYSIS PATIENTS. POCT-GLUCOSE [id number] 06:19:00 Test Item Value Reference Range Comments POC-GLUCOSE METER (BEAKER) 216 mg/dL 70-110 TESTED AT [facility] [address] [facility] (test dums=2331) [employer] [address] CBC (HEMOGRAM ONLY)2018-11-06 05:54:00 Test Item Value Reference Range Comments WHITE BLOOD CELL COUNT (BEAKER) (test saov=980) 8.1 K/ L 3.5-10.5 RED BLOOD CELL COUNT (BEAKER) (test bhot=829) 4.33 M/ L 4.63-6.08 HEMOGLOBIN (BEAKER) (test sxuw=055) 12.5 GM/DL 13.7-17.5 HEMATOCRIT (BEAKER) (test zjse=047) 37.2 % 40.1-51.0 MEAN CORPUSCULAR VOLUME (BEAKER) (test vfcr=655) 85.9 fL 79.0-92.2 MEAN CORPUSCULAR HEMOGLOBIN (BEAKER) (test 28.9 pg 25.7-32.2 wryk=467) MEAN CORPUSCULAR HEMOGLOBIN CONC (BEAKER) (test 33.6 GM/DL 32.3-36.5 dkkt=076) RED CELL DISTRIBUTION WIDTH (BEAKER) (test 14.6 % 11.6-14.4 mfur=367) PLATELET COUNT (BEAKER) (test uwiy=723) 215 K/CU MM 150-450 MEAN PLATELET VOLUME (BEAKER) (test zmks=145) 10.7 fL 9.4-12.4 NUCLEATED RED BLOOD CELLS (BEAKER) (test 0 /100 WBC 0-0 zyyd=576) POCT-GLUCOSE [id number] 01:34:00 Test Item Value Reference Range Comments POC-GLUCOSE METER (BEAKER) 175 mg/dL 70-110 TESTED AT [address] (test eopd=4881) [place] [id number] POCT-GLUCOSE [id number] 19:12:00 Test Item Value Reference Range Comments POC-GLUCOSE METER (BEAKER) 150 mg/dL 70-110 TESTED AT [address] (test uoce=7612) [place] [id number] POCT-GLUCOSE [id number] 11:28:00 Test Item Value Reference Range Comments POC-GLUCOSE METER (BEAKER) 169 mg/dL 70-110 TESTED AT [address] (test abqu=1984) [place] [id number] BASIC METABOLIC [id number] 07:23:00 Test Item Value Reference Range Comments SODIUM (BEAKER) (test 140 meq/L 136-145 rsyg=090) POTASSIUM (BEAKER) (test 4.1 meq/L 3.5-5.1 yqke=366) CHLORIDE (BEAKER) (test 105 meq/L 98-107 odpz=130) CO2 (BEAKER) (test 27 meq/L 22-29 ydas=569) BLOOD UREA NITROGEN 15 mg/dL 7-21 (BEAKER) (test hwmp=952) CREATININE (BEAKER) (test 0.78 mg/dL 0.57-1.25 yrjn=323) GLUCOSE RANDOM (BEAKER) 156 mg/dL 70-105 (test iwon=542) CALCIUM (BEAKER) (test 9.3 mg/dL 8.4-10.2 orml=825) EGFR (BEAKER) (test 99 mL/min/1.73 sq m ESTIMATED GFR IS NOT odpx=7829) ACCURATE CREATININE CLEARANCE IN PREDICTING GLOMERULAR FILTRATION RATE. ESTIMATED GFR IS NOT APPLICABLE FOR DIALYSIS PATIENTS. POCT-GLUCOSE [id number] 06:37:00 Test Item Value Reference Range Comments POC-GLUCOSE METER (BEAKER) 158 mg/dL 70-110 TESTED AT [address] (test fhwp=0315) [place] [id number] 05:42:00 Test Item Value Reference Range Comments PROTIME (BEAKER) (test hmxt=356) 12.9 seconds 11.7-14.7 INR (BEAKER) (test nkbi=381) 1.0 <=5.9 PARTIAL THROMBOPLASTIN TIME (BEAKER) (test 35.4 seconds 22.5-36.0 yhfc=439) RECOMMENDED COUMADIN/WARFARIN INR THERAPY RANGESSTANDARD DOSE: 2.0 - 3.0 Includes: PROPHYLAXIS forvenous thrombosis, systemic embolization; TREATMENT for venous thrombosis and/or pulmonary embolus.HIGH RISK: Target INR is 2.5-3.5 for patients with mechanical heart valves.CBC (HEMOGRAM ONLY)2018-11-05 05:29:00 Test Item Value Reference Range Comments WHITE BLOOD CELL COUNT (BEAKER) (test blcg=484) 13.2 K/ L 3.5-10.5 RED BLOOD CELL COUNT (BEAKER) (test rayk=072) 4.77 M/ L 4.63-6.08 HEMOGLOBIN (BEAKER) (test mxgg=189) 13.6 GM/DL 13.7-17.5 HEMATOCRIT (BEAKER) (test gogg=522) 41.6 % 40.1-51.0 MEAN CORPUSCULAR VOLUME (BEAKER) (test sfrv=791) 87.2 fL 79.0-92.2 MEAN CORPUSCULAR HEMOGLOBIN (BEAKER) (test 28.5 pg 25.7-32.2 ifez=761) MEAN CORPUSCULAR HEMOGLOBIN CONC (BEAKER) (test 32.7 GM/DL 32.3-36.5 evgm=898) RED CELL DISTRIBUTION WIDTH (BEAKER) (test 14.8 % 11.6-14.4 puky=113) PLATELET COUNT (BEAKER) (test kgiz=359) 218 K/CU MM 150-450 MEAN PLATELET VOLUME (BEAKER) (test dotp=360) 11.6 fL 9.4-12.4 NUCLEATED RED BLOOD CELLS (BEAKER) (test 0 /100 WBC 0-0 kpgy=486) POCT-GLUCOSE [id number] 23:19:00 Test Item Value Reference Range Comments POC-GLUCOSE METER (BEAKER) 231 mg/dL 70-110 TESTED AT [facility] [address] (test pzcs=8548) [employer] [address] POCT-GLUCOSE [id number] 18:05:00 Test Item Value Reference Range Comments POC-GLUCOSE METER (BEAKER) 245 mg/dL 70-110 TESTED AT [facility] [address] [facility] (test apfn=4168) [employer] [address] POCT-GLUCOSE [id number] 12:49:00 Test Item Value Reference Range Comments POC-GLUCOSE METER (BEAKER) 197 mg/dL 70-110 TESTED AT [place] [id number] [facility] (test yvox=5264) [employer] [address] BASIC METABOLIC [id number] 09:31:00 Test Item Value Reference Range Comments SODIUM (BEAKER) (test 137 meq/L 136-145 mcpw=455) POTASSIUM (BEAKER) (test 4.2 meq/L 3.5-5.1 anud=604) CHLORIDE (BEAKER) (test 104 meq/L 98-107 crvt=522) CO2 (BEAKER) (test 26 meq/L 22-29 vmtc=814) BLOOD UREA NITROGEN 20 mg/dL 7-21 (BEAKER) (test bfme=184) CREATININE (BEAKER) (test 0.81 mg/dL 0.57-1.25 dcdj=112) GLUCOSE RANDOM (BEAKER) 199 mg/dL 70-105 (test qwks=707) CALCIUM (BEAKER) (test 9.0 mg/dL 8.4-10.2 vcpb=094) EGFR (BEAKER) (test 94 mL/min/1.73 sq m ESTIMATED GFR IS NOT mfra=3209) ACCURATE CREATININE CLEARANCE IN PREDICTING GLOMERULAR FILTRATION RATE. ESTIMATED GFR IS NOT APPLICABLE FOR DIALYSIS PATIENTS. CBC (HEMOGRAM ONLY)2018-11-04 06:48:00 Test Item Value Reference Range Comments WHITE BLOOD CELL COUNT (BEAKER) (test trwx=270) 15.7 K/ L 3.5-10.5 RED BLOOD CELL COUNT (BEAKER) (test jvft=920) 4.69 M/ L 4.63-6.08 HEMOGLOBIN (BEAKER) (test iyqo=572) 13.4 GM/DL 13.7-17.5 HEMATOCRIT (BEAKER) (test nkmc=100) 41.3 % 40.1-51.0 MEAN CORPUSCULAR VOLUME (BEAKER) (test zhxf=586) 88.1 fL 79.0-92.2 MEAN CORPUSCULAR HEMOGLOBIN (BEAKER) (test 28.6 pg 25.7-32.2 qdek=489) MEAN CORPUSCULAR HEMOGLOBIN CONC (BEAKER) (test 32.4 GM/DL 32.3-36.5 yqzg=593) RED CELL DISTRIBUTION WIDTH (BEAKER) (test 15.1 % 11.6-14.4 lcwl=702) PLATELET COUNT (BEAKER) (test nqxg=732) 180 K/CU MM 150-450 MEAN PLATELET VOLUME (BEAKER) (test gdib=719) 11.7 fL 9.4-12.4 NUCLEATED RED BLOOD CELLS (BEAKER) (test 0 /100 WBC 0-0 jnyi=104) POCT-GLUCOSE [id number] 23:44:00 Test Item Value Reference Range Comments POC-GLUCOSE METER (BEAKER) 187 mg/dL 70-110 TESTED AT [address] (test nefv=8686) [employer] [address] POCT-GLUCOSE [id number] 17:30:00 Test Item Value Reference Range Comments POC-GLUCOSE METER (BEAKER) 231 mg/dL 70-110 TESTED AT [address] [address] (test docg=4182) [employer] [address] POCT-GLUCOSE [id number] 12:40:00 Test Item Value Reference Range Comments POC-GLUCOSE METER (BEAKER) 205 mg/dL 70-110 TESTED AT [address] (test dgca=8469) [employer] [address] BASIC METABOLIC [id number] 08:48:00 Test Item Value Reference Range Comments SODIUM (BEAKER) (test 138 meq/L 136-145 vadi=535) POTASSIUM (BEAKER) (test 3.9 meq/L 3.5-5.1 bwwk=169) CHLORIDE (BEAKER) (test 107 meq/L 98-107 hews=238) CO2 (BEAKER) (test 24 meq/L 22-29 twrs=567) BLOOD UREA NITROGEN 19 mg/dL 7-21 (BEAKER) (test cbdq=961) CREATININE (BEAKER) (test 0.80 mg/dL 0.57-1.25 ztgc=309) GLUCOSE RANDOM (BEAKER) 149 mg/dL 70-105 (test loqp=610) CALCIUM (BEAKER) (test 8.8 mg/dL 8.4-10.2 istr=864) EGFR (BEAKER) (test 96 mL/min/1.73 sq m ESTIMATED GFR IS NOT xkir=1782) ACCURATE CREATININE CLEARANCE IN PREDICTING GLOMERULAR FILTRATION RATE. ESTIMATED GFR IS NOT APPLICABLE FOR DIALYSIS PATIENTS. POCT-GLUCOSE [id number] 06:30:00 Test Item Value Reference Range Comments POC-GLUCOSE METER (BEAKER) 153 mg/dL 70-110 TESTED AT [address] (test lcao=8942) [employer] [address] CBC (HEMOGRAM ONLY)2018-11-03 05:19:00 Test Item Value Reference Range Comments WHITE BLOOD CELL COUNT (BEAKER) (test lmsj=428) 12.3 K/ L 3.5-10.5 RED BLOOD CELL COUNT (BEAKER) (test edfm=298) 4.24 M/ L 4.63-6.08 HEMOGLOBIN (BEAKER) (test vqry=141) 12.1 GM/DL 13.7-17.5 HEMATOCRIT (BEAKER) (test mqqe=211) 37.0 % 40.1-51.0 MEAN CORPUSCULAR VOLUME (BEAKER) (test iuvd=152) 87.3 fL 79.0-92.2 MEAN CORPUSCULAR HEMOGLOBIN (BEAKER) (test 28.5 pg 25.7-32.2 fhke=058) MEAN CORPUSCULAR HEMOGLOBIN CONC (BEAKER) (test 32.7 GM/DL 32.3-36.5 dotd=819) RED CELL DISTRIBUTION WIDTH (BEAKER) (test 14.8 % 11.6-14.4 zitk=006) PLATELET COUNT (BEAKER) (test pkdw=131) 175 K/CU MM 150-450 MEAN PLATELET VOLUME (BEAKER) (test gbis=743) 11.3 fL 9.4-12.4 NUCLEATED RED BLOOD CELLS (BEAKER) (test 0 /100 WBC 0-0 mgqw=212) POCT-GLUCOSE [id number] 23:20:00 Test Item Value Reference Range Comments POC-GLUCOSE METER (BEAKER) 133 mg/dL 70-110 TESTED AT [address] (test qrqr=5624) [place] [id number] POCT-GLUCOSE [id number] 17:27:00 Test Item Value Reference Range Comments POC-GLUCOSE METER (BEAKER) 107 mg/dL 70-110 TESTED AT [facility] [address] [facility] (test yvsz=3840) [employer] [address] POCT-GLUCOSE [id number] 09:07:00 Test Item Value Reference Range Comments POC-GLUCOSE METER (BEAKER) 101 mg/dL 70-110 TESTED AT [facility] [address] [facility] (test arjy=2990) [employer] [address] TROPONIN [id number] 07:02:00 Test Item Value Reference Range Comments TROPONIN I (BEAKER) (test gtpm=014) 0.04 ng/mL 0.00-0.03 Troponin I (TnI) levels [...] acute neurological disease, and persistent tachyarrhythmia.BASIC METABOLIC [id number] 06:55:00 Test Item Value Reference Range Comments SODIUM (BEAKER) (test 142 meq/L 136-145 xnek=223) POTASSIUM (BEAKER) (test 3.7 meq/L 3.5-5.1 brfp=651) CHLORIDE (BEAKER) (test 110 meq/L 98-107 dekh=363) CO2 (BEAKER) (test 23 meq/L 22-29 yxwi=072) BLOOD UREA NITROGEN 17 mg/dL 7-21 (BEAKER) (test bbvx=612) CREATININE (BEAKER) (test 0.77 mg/dL 0.57-1.25 zpvc=111) GLUCOSE RANDOM (BEAKER) 114 mg/dL 70-105 (test qpol=691) CALCIUM (BEAKER) (test 9.1 mg/dL 8.4-10.2 jxvt=391) EGFR (BEAKER) (test 100 mL/min/1.73 sq m ESTIMATED GFR IS NOT gyzj=4290) ACCURATE CREATININE CLEARANCE IN PREDICTING GLOMERULAR FILTRATION RATE. ESTIMATED GFR IS NOT APPLICABLE FOR DIALYSIS PATIENTS. B-TYPE NATRIURETIC FACTOR (BNP)2018-11-02 06:46:00 Test Item Value Reference Range Comments B-TYPE NATRIURETIC PEPTIDE (BEAKER) (test 722 pg/mL 0-100 fygn=408) PROTHROMBIN [id number] 06:35:00 Test Item Value Reference Range Comments PROTIME (BEAKER) (test yknr=161) 14.3 seconds 11.7-14.7 INR (BEAKER) (test epuo=210) 1.1 <=5.9 RECOMMENDED COUMADIN/WARFARIN INR THERAPY RANGESSTANDARD DOSE: 2.0 - 3.0 Includes: PROPHYLAXIS forvenous thrombosis, systemic embolization; TREATMENT for venous thrombosis and/or pulmonary embolus.HIGH RISK: Target INR is 2.5-3.5 for patients with mechanical heart valves.CBC (HEMOGRAM ONLY)2018-11-02 06:30:00 Test Item Value Reference Range Comments WHITE BLOOD CELL COUNT (BEAKER) (test giax=941) 11.4 K/ L 3.5-10.5 RED BLOOD CELL COUNT (BEAKER) (test plpp=035) 4.29 M/ L 4.63-6.08 HEMOGLOBIN (BEAKER) (test cbpq=365) 12.2 GM/DL 13.7-17.5 HEMATOCRIT (BEAKER) (test jaej=240) 37.9 % 40.1-51.0 MEAN CORPUSCULAR VOLUME (BEAKER) (test mfci=950) 88.3 fL 79.0-92.2 MEAN CORPUSCULAR HEMOGLOBIN (BEAKER) (test 28.4 pg 25.7-32.2 acnh=095) MEAN CORPUSCULAR HEMOGLOBIN CONC (BEAKER) (test 32.2 GM/DL 32.3-36.5 efnk=890) RED CELL DISTRIBUTION WIDTH (BEAKER) (test 15.2 % 11.6-14.4 surl=353) PLATELET COUNT (BEAKER) (test xwyu=177) 161 K/CU MM 150-450 MEAN PLATELET VOLUME (BEAKER) (test osle=563) 11.4 fL 9.4-12.4 NUCLEATED RED BLOOD CELLS (BEAKER) (test 0 /100 WBC 0-0 rbel=867) POCT-GLUCOSE [id number] 05:55:00 Test Item Value Reference Range Comments POC-GLUCOSE METER (BEAKER) 114 mg/dL 70-110 TESTED AT [facility] [address] [facility] (test fvfg=8283) [employer] [address] POCT-GLUCOSE [id number] 23:27:00 Test Item Value Reference Range Comments POC-GLUCOSE METER (BEAKER) 133 mg/dL 70-110 TESTED AT [address] (test vasj=7084) [employer] [address] RAD, ABDOMEN/KUB, 1 VIEW [id number] 18:35:00Reason for exam:->To check NG TUbe positionFINAL REPORT INDICATION:Confirm feeding tube placement. TECHNIQUE: Abdomen radiograph one view. FINDINGS / IMPRESSION: There is a feeding tube that follows the course of the stomach with the tip projecting over the gastric antrum. Visualized bowel gas pattern is unremarkable. Osseous structures unremarkable. Signed: Bora Hawk MDReport Verified Date/Time: 11/01/2018 18:35:02 Reading Location: [address] Consult Reading Room POCT-GLUCOSE [id number] 17:52:00 Test Item Value Reference Range Comments POC-GLUCOSE METER (BEAKER) 134 mg/dL 70-110 TESTED AT [address] (test bzlx=9478) [place] [id number] POCT-GLUCOSE [id number] 15:42:00 Test Item Value Reference Range Comments POC-GLUCOSE METER (BEAKER) 135 mg/dL 70-110 TESTED AT [address] (test zurw=6365) [employer] [address] [id number] 06:25:00 Test Item Value Reference Range Comments MAGNESIUM (BEAKER) (test hmrn=926) 2.3 mg/dL 1.6-2.6 COMPREHENSIVE METABOLIC [id number] 06:25:00 Test Item Value Reference Range Comments TOTAL PROTEIN (BEAKER) 5.9 gm/dL 6.0-8.3 (test zyfg=030) ALBUMIN (BEAKER) (test 3.3 g/dL 3.5-5.0 qebp=7282) ALKALINE PHOSPHATASE 47 U/L 40-150 (BEAKER) (test pcxh=325) BILIRUBIN TOTAL (BEAKER) 0.9 mg/dL 0.2-1.2 (test lctg=206) SODIUM (BEAKER) (test 143 meq/L 136-145 obwf=483) POTASSIUM (BEAKER) (test 3.6 meq/L 3.5-5.1 rzjj=547) CHLORIDE (BEAKER) (test 109 meq/L 98-107 axup=073) CO2 (BEAKER) (test 27 meq/L 22-29 zoua=111) BLOOD UREA NITROGEN 22 mg/dL 7-21 (BEAKER) (test cvib=599) CREATININE (BEAKER) (test 0.89 mg/dL 0.57-1.25 btap=053) GLUCOSE RANDOM (BEAKER) 152 mg/dL 70-105 (test mmsu=584) CALCIUM (BEAKER) (test 8.9 mg/dL 8.4-10.2 qrwx=991) AST (SGOT) (BEAKER) (test 35 U/L 5-34 uudm=372) ALT (SGPT) (BEAKER) (test 28 U/L 6-55 vqno=512) EGFR (BEAKER) (test 85 mL/min/1.73 sq m ESTIMATED GFR IS NOT htnr=1777) ACCURATE CREATININE CLEARANCE IN PREDICTING GLOMERULAR FILTRATION RATE. ESTIMATED GFR IS NOT APPLICABLE FOR DIALYSIS PATIENTS. CBC W/PLT COUNT & AUTO [id number] 06:11:00 Test Item Value Reference Range Comments WHITE BLOOD CELL COUNT (BEAKER) (test wnyq=606) 11.8 K/ L 3.5-10.5 RED BLOOD CELL COUNT (BEAKER) (test kzde=006) 4.35 M/ L 4.63-6.08 HEMOGLOBIN (BEAKER) (test xysh=753) 12.2 GM/DL 13.7-17.5 HEMATOCRIT (BEAKER) (test mqqo=006) 38.4 % 40.1-51.0 MEAN CORPUSCULAR VOLUME (BEAKER) (test yyki=553) 88.3 fL 79.0-92.2 MEAN CORPUSCULAR HEMOGLOBIN (BEAKER) (test 28.0 pg 25.7-32.2 ohnc=729) MEAN CORPUSCULAR HEMOGLOBIN CONC (BEAKER) (test 31.8 GM/DL 32.3-36.5 hisy=257) RED CELL DISTRIBUTION WIDTH (BEAKER) (test 15.3 % 11.6-14.4 rznv=687) PLATELET COUNT (BEAKER) (test tkbe=383) 165 K/CU MM 150-450 MEAN PLATELET VOLUME (BEAKER) (test izik=675) 11.1 fL 9.4-12.4 NUCLEATED RED BLOOD CELLS (BEAKER) (test 0 /100 WBC 0-0 asiv=291) NEUTROPHILS RELATIVE PERCENT (BEAKER) (test 74 % jzps=947) LYMPHOCYTES RELATIVE PERCENT (BEAKER) (test 17 % dsib=910) MONOCYTES RELATIVE PERCENT (BEAKER) (test 7 % ebjo=094) EOSINOPHILS RELATIVE PERCENT (BEAKER) (test 1 % mnsi=410) BASOPHILS RELATIVE PERCENT (BEAKER) (test 0 % hazx=469) NEUTROPHILS ABSOLUTE COUNT (BEAKER) (test 8.68 K/ L 1.78-5.38 gjqa=198) LYMPHOCYTES ABSOLUTE COUNT (BEAKER) (test 2.02 K/ L 1.32-3.57 xpol=541) MONOCYTES ABSOLUTE COUNT (BEAKER) (test 0.87 K/ L 0.30-0.82 fqlc=511) EOSINOPHILS ABSOLUTE COUNT (BEAKER) (test 0.15 K/ L 0.04-0.54 wogd=126) BASOPHILS ABSOLUTE COUNT (BEAKER) (test 0.03 K/ L 0.01-0.08 ksew=157) IMMATURE GRANULOCYTES-RELATIVE PERCENT (BEAKER) 0 % 0-1 (test dbwp=3264) CT, BRAIN, WITHOUT [id number] 05:58:00FINAL REPORT EXAM: CT head without contrast. [...] MDReport Verified Date/Time: 11/01/2018 05:58:05 Reading Location: [address] Body Reading Room Electronically signed by: Eugenia GLEZ 11/01/2018 05:58 AMPOCT-GLUCOSE [id number] 23:14:00 Test Item Value Reference Range Comments POC-GLUCOSE METER (BEAKER) 165 mg/dL 70-110 TESTED AT [address] (test qkpp=2048) [employer] [address] CT, CTANGIO [id number] 18:44:00FINAL REPORT CT, CTANGIO BRAIN, CT, CAROTID, [...] artery is widely patent extracranially. Nonvascular findings: Qshm-lh-hrvhgwec degenerative changes are present in the cervical [...] MDReport Verified Date/Time: 10/31/2018 18:44:42 Reading Location: [facility] C0[facility] Neuro Reading Room CT, CAROTID, [id number] 18:44: 00FINAL REPORT CT, CTANGIO BRAIN, CT, [...] MDReport Verified Date/Time: 10/31/2018 18:44:42 Reading Location: [facility] C013 Neuro Reading Room [id number] 14:17:00 Test Item Value Reference Range Comments RPR SCREEN (BEAKER) (test zcwz=782) Nonreactive Nonreactive CBC W/PLT COUNT & AUTO [id number] 12:54:00 Test Item Value Reference Range Comments WHITE BLOOD CELL COUNT (BEAKER) (test vaqo=735) 19.3 K/ L 3.5-10.5 RED BLOOD CELL COUNT (BEAKER) (test svwo=256) 4.94 M/ L 4.63-6.08 HEMOGLOBIN (BEAKER) (test kujc=106) 14.2 GM/DL 13.7-17.5 HEMATOCRIT (BEAKER) (test vrgv=193) 42.3 % 40.1-51.0 MEAN CORPUSCULAR VOLUME (BEAKER) (test ymxb=061) 85.6 fL 79.0-92.2 MEAN CORPUSCULAR HEMOGLOBIN (BEAKER) (test 28.7 pg 25.7-32.2 pwso=652) MEAN CORPUSCULAR HEMOGLOBIN CONC (BEAKER) (test 33.6 GM/DL 32.3-36.5 lwyk=485) RED CELL DISTRIBUTION WIDTH (BEAKER) (test 15.0 % 11.6-14.4 iokn=688) PLATELET COUNT (BEAKER) (test kfey=329) 197 K/CU MM 150-450 MEAN PLATELET VOLUME (BEAKER) (test irvx=312) 11.0 fL 9.4-12.4 NUCLEATED RED BLOOD CELLS (BEAKER) (test 0 /100 WBC 0-0 utrm=814) (CELLAVISION MANUAL DIFF)2018-10-31 12:54:00 Test Item Value Reference Range Comments NEUTROPHILS - REL (CELLAVISION)(BEAKER) (test 77 % jobb=0158) LYMPHOCYTES - REL (CELLAVISION)(BEAKER) (test 15 % lczb=4360) MONOCYTES - REL (CELLAVISION)(BEAKER) (test 4 % odkp=9592) BANDS - REL (CELLAVISION)(BEAKER) (test 3 % 0-10 toaj=0553) ATYPICAL LYMPHOCYTES - REL (CELLAVISION)(BEAKER) 1 % 0-0 (test wrhf=1209) NEUTROPHILS - ABS (CELLAVISION)(BEAKER) (test 14.86 K/ul 1.78-5.38 mvae=1755) LYMPHOCYTES - ABS (CELLAVISION)(BEAKER) (test 2.90 K/ul 1.32-3.57 lwca=3895) MONOCYTES - ABS (CELLAVISION)(BEAKER) (test 0.77 K/uL 0.30-0.82 yxpr=0886) BANDS - ABS (CELLAVISION)(BEAKER) (test 0.58 K/uL 0.00-0.80 vuzf=8368) ATYPICAL LYMPHOCYTES - ABS (CELLAVISION)(BEAKER) 0.19 K/uL 0.00-0.00 (test page=9015) TOTAL COUNTED (BEAKER) (test fmid=9780) 100 SMUDGE CELLS (BEAKER) (test mkaw=3129) Present GIANT PLATELETS (BEAKER) (test iomg=619) Present POLYCHROMATOPHILLIC RBCS(BEAKER) (test kvlj=181) 1+ few ANISOCYTOSIS (BEAKER) (test zdml=814) 1+ few MICROCYTES (BEAKER) (test nmpw=787) 1+ few ARTIFACT (CELLAVISION)(BEAKER) (test vfdt=5247) Present PLATELET CONCENTRATION (CELLAVISION)(BEAKER) Adequate (test wcns=4938) Received comment: User comments: Slide comments:HEMOGLOBIN [id number] 11:05: 00 Test Item Value Reference Range Comments HEMOGLOBIN A1C (BEAKER) (test qdhp=478) 8.4 % 4.3-6.1 VITAMIN [id number] 07:43:00 Test Item Value Reference Range Comments VITAMIN B12 (BEAKER) (test wtot=785) 595 pg/mL 213-816 TROPONIN [id number] 07:21:00 Test Item Value Reference Range Comments TROPONIN I (BEAKER) (test juuf=349) 0.13 ng/mL 0.00-0.03 Troponin I (TnI) levels [...] acidosis, acute neurological disease, and persistent tachyarrhythmia.C-REACTIVE [id number] 07:16:00 Test Item Value Reference Range Comments C-REACTIVE PROTEIN (BEAKER) (test vdtm=601) 4.19 mg/dL 0.00-0.50 TSH/FREE T4 IF [id number] 06:15:00 Test Item Value Reference Range Comments THYROID STIMULATING HORMONE (BEAKER) (test 2.46 uIU/mL 0.35-4.94 btdk=642) [id number] 05:54:00 Test Item Value Reference Range Comments PROTIME (BEAKER) (test tpgu=629) 14.3 seconds 11.7-14.7 INR (BEAKER) (test hzrp=276) 1.1 <=5.9 PARTIAL THROMBOPLASTIN TIME (BEAKER) (test 29.4 seconds 22.5-36.0 lpjs=161) RECOMMENDED COUMADIN/WARFARIN INR THERAPY RANGESSTANDARD DOSE: 2.0 - 3.0 Includes: PROPHYLAXIS forvenous thrombosis, systemic embolization; TREATMENT for venous thrombosis and/or pulmonary embolus.HIGH RISK: Target INR is 2.5-3.5 for patients with mechanical heart valves.LIPID [id number] 05:51:00 Test Item Value Reference Range Comments TRIGLYCERIDES (BEAKER) (test rsbv=519) 191 mg/dL CHOLESTEROL (BEAKER) (test nhjl=805) 115 mg/dL HDL CHOLESTEROL (BEAKER) (test qnql=188) 41 mg/dL LDL CHOLESTEROL CALCULATED (BEAKER) (test 36 mg/dL fscj=193) Triglyceride Reference Range: Low Risk <150 Borderline 150- 199 High Risk 200-499 Very High Risk >=500Cholesterol Reference Range: Low Risk <200 Borderline 200-239 High Risk > 240HDL Cholesterol Reference Range: Low Risk >=60 High Risk <40LDL Cholesterol Reference Range: Optimal <100 Near Optimal 100-129 Borderline 130-159 High 160-189 Very High >=190COMPREHENSIVE METABOLIC [id number] 05:51:00 Test Item Value Reference Range Comments TOTAL PROTEIN (BEAKER) 6.6 gm/dL 6.0-8.3 (test vfzr=236) ALBUMIN (BEAKER) (test 3.7 g/dL 3.5-5.0 tubg=5922) ALKALINE PHOSPHATASE 51 U/L 40-150 (BEAKER) (test saux=779) BILIRUBIN TOTAL (BEAKER) 1.5 mg/dL 0.2-1.2 (test hlqm=886) SODIUM (BEAKER) (test 141 meq/L 136-145 ncim=327) POTASSIUM (BEAKER) (test 4.3 meq/L 3.5-5.1 ifsz=675) CHLORIDE (BEAKER) (test 108 meq/L 98-107 suer=765) CO2 (BEAKER) (test 25 meq/L 22-29 bymo=655) BLOOD UREA NITROGEN 33 mg/dL 7-21 (BEAKER) (test psoi=910) CREATININE (BEAKER) (test 1.02 mg/dL 0.57-1.25 cbjb=447) GLUCOSE RANDOM (BEAKER) 160 mg/dL 70-105 (test meqm=479) CALCIUM (BEAKER) (test 9.0 mg/dL 8.4-10.2 uzga=447) AST (SGOT) (BEAKER) (test 54 U/L 5-34 stfr=783) ALT (SGPT) (BEAKER) (test 32 U/L 6-55 khpg=911) EGFR (BEAKER) (test 72 mL/min/1.73 sq m ESTIMATED GFR IS NOT uwri=7361) ACCURATE CREATININE CLEARANCE IN PREDICTING GLOMERULAR FILTRATION RATE. ESTIMATED GFR IS NOT APPLICABLE FOR DIALYSIS PATIENTS.
[2019-07-18 13:26] LABS: Basophils % 0.5 % (0-1.3); Hematocrit 33.7 % (39.6-49.0); Lymphocytes % 23.1 % (15.3-44.8); MPV 9.2 fL (7.6-11.3); RBC Red Blood Cell Count 3.93 M/uL (4.33-5.43)
[2019-07-18 13:37] LABS: Protime INR 0.96
[2019-07-18 13:41] LABS: Potassium 4.3 mmol/L (3.5-5.1)
--- NOTE | 2019-07-18 13:41 | RAD REPORT ---
EXAM DESCRIPTION: CT - Head C Spine Mpr Wo Con - 07/18/2019 1:23 pm CLINICAL HISTORY: Head and neck injury status post fall. Head and neck pain COMPARISON: October 2018 TECHNIQUE: Computed axial tomography of the head and cervical spine was obtained. Sagittal and coronal reconstruction was performed. All CT scans are performed using dose optimization technique as appropriate and may include automated exposure control or mA/KV adjustment according to patient size. 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 An intracranial bleed is not seen. The ventricles are normal in caliber. An extra-axial fluid collect ion is not noted.Fluid within the visualized sinuses and mastoids is not seen. Cerebral atrophy is no kristyn. Right carotid stent in place. A cervical fracture is not visualized. No dislocation is noted. IMPRESSION: No acute intracranial abnormality is seen. A cervical fracture is not visualized. If the patient continues to have symptoms to suggest intracra nial /spinal cord pathology then MRI would be recommended
--- NOTE | 2019-07-18 14:21 | RAD REPORT ---
EXAM DESCRIPTION: RAD - Forearm Left - 07/18/2019 2:10 pm CLINICAL HISTORY: Left forearm pain status post injury FINDINGS: No fracture is seen
--- NOTE | 2019-07-18 14:23 | RAD REPORT ---
EXAM DESCRIPTION: RAD - Elbow Left 2 View - 07/18/2019 2:10 pm CLINICAL HISTORY: Left elbow pain status fall. FINDINGS: A limited two view series A small bony/ calcific density along the medial aspect of the elbow probably chronic No acute fracture or dislocation seen
--- NOTE | 2019-07-18 14:24 | RAD REPORT ---
EXAM DESCRIPTION: RAD - Hip Left 2 View - 07/18/2019 2:10 pm CLINICAL HISTORY: Left hip pain status post injury FINDINGS: No fracture or dislocation is seen. Osteoporosis
--- NOTE | 2019-07-18 14:24 | RAD REPORT ---
EXAM DESCRIPTION: RAD - Pelvis - 07/18/2019 2:10 pm CLINICAL HISTORY: Pelvic pain status post injury FINDINGS: No fracture or dislocation is seen. Osteoporosis
--- NOTE | 2019-07-18 14:40 | RAD REPORT ---
EXAM DESCRIPTION: RAD - Humerus Left - 07/18/2019 2:10 pm CLINICAL HISTORY: Left arm pain status post fall FINDINGS: The humeral head is high riding probably secondary to a chronic rotator cuff tear Bony/calcific density lies lateral to the humeral head on one view. It is uncertain if this is a spur from the acromion, calcification or fracture fragment. If the patient has pain in this region then d edicated plain films of the left shoulder would be recommended including an axillary view. Osteoporosis Remainder the exam is unremarkable
--- NOTE | 2019-07-18 15:05 | EDPHYS ---
Physician Documentation [facility] Name: Zain Hope Age: 68 yrs Sex: Male : 1950 Arrival Date: 07/18/2019 Time: 12:57 Bed 6 Private MD: ED Physician Deejay Bazzi HPI: 07/18 13:07 This 68 yrs old Male presents to ER via EMS with complaints of Hip Pain, Neck rn Pain, <24hrs Old. 13:08 Trauma demographics: Location of Injury: The injury occurred at home. Mechanism of rn injury: Fall:. Associated injuries: The patient sustained neck injury, left hip, left arm. The patient has not experienced similar symptoms in the past. The patient has not recently seen a physician. Reports fall, trouble getting into wheelchair, reports neck hurts, left arm hurts, and left hip hurts. No LOC. . Historical: - Allergies: 13:03 No Known Allergies; ss - Home Meds: 13:03 acetaminophen 325 mg Oral tab 2 tabs every 4 hours [Active]; Arginaid 4.5 gram-156 ss mg/9.2 gram Oral pwpk twice a day [Active]; ascorbic acid (vitamin C) 500 mg tab twice a day [Active]; aspirin 81 mg Oral TbEC 1 tab once daily [Active]; atorvastatin 80 mg Oral tab 1 tab once daily [Active]; fluoxetine 20 mg Oral cap 1 cap once daily [Active]; Lantus 100 unit/mL Sub-Q soln 10 unit twice a day [Active]; levothyroxine 50 mcg tab 1 tab once daily [Active]; lidocaine 5 % Topical ptmd 1 patch once daily [Active]; losartan 25 mg Oral tab 0.5 tab once daily [Active]; metformin 1,000 mg Oral tab 1 tab 2 times per day [Active]; metoprolol tartrate 25 mg Oral tab 0.5 tab 2 times per day [Active]; senna 8.6 mg Oral tab once daily [Active]; ticagrelor 90 mg Oral 1 tab 2 times per day [Active]; tramadol 50 mg Oral tab 2 tabs every 6 hours [Active]; Zantac 150 mg Oral tab 1 tab once daily [Active]; - PMHx: 13:03 CVA; Depression; DYSPHAGIA; Diabetes - NIDDM; GERD; Hyperlipidemia; Hypertension; ss Hypothyroidism; - PSHx: 13:03 PEG tube; ss - Immunization history:: Adult Immunizations up to date. - Social history:: Smoking status: Patient/guardian denies using tobacco, the patient reports quitting approximately 1 years ago. - Ebola Screening: : Patient denies exposure to infectious person Patient denies travel to an Ebola-affected area in the 21 days before illness onset. - Family history:: not pertinent. - Hospitalizations: : No recent hospitalization is reported. ROS: 13:08 Constitutional: Negative for fever, chills, and weight loss, Eyes: Negative for injury, rn pain, redness, and discharge, ENT: Negative for injury, pain, and discharge, Neck: + mild neck pain Cardiovascular: Negative for chest pain, palpitations, and edema, Respiratory: Negative for shortness of breath, cough, wheezing, and pleuritic chest pain, Abdomen/GI: Negative for abdominal pain, nausea, vomiting, diarrhea, and constipation, Back: Negative for injury and pain, MS/Extremity: + left hip pain, left arm pain Neuro: Negative for new weakness, numbness, tingling, and seizure. Exam: 13:08 Constitutional: This is a well developed, well nourished patient who is awake, alert, rn and in no acute distress. Head/Face: Normocephalic, atraumatic. Neck: In ccollar, no midline tenderness Cardiovascular: Regular rate and rhythm. No pulse deficits. Respiratory: No increased work of breathing, no retractions or nasal flaring. Abdomen/GI: soft, non-tender Back: No spinal tenderness. MS/ Extremity: Pulses equal, no cyanosis. + mild tenderness diffuse left arm without focal point tenderness, + mild painful ROm left hip but able to range without assistance. Neuro: Awake and alert, GCS 15, oriented to person, place, time, and situation. Vital Signs: 13:03 BP 157 / 91; Pulse 85; Resp 16; Temp 98.2(TE); Pulse Ox 99% on R/A; Weight 77.11 kg; ss 14:09 BP 164 / 88; Pulse 84; Resp 16; Pulse Ox 100% ; sv MDM: 12:59 Patient medically screened. rn 15:04 Differential diagnosis: extremity fracture, C spine fracture. Data reviewed: vital rn signs, nurses notes, radiologic studies, CT scan, plain films, and as a result, I will discharge patient. Counseling: I had a detailed discussion with the patient and/or guardian regarding: the historical points, exam findings, and any diagnostic results supporting the discharge/admit diagnosis, lab results, radiology results, the need for outpatient follow up, to return to the emergency department if symptoms worsen or persist or if there are any questions or concerns that arise at home. Special discussion: I discussed with the patient/guardian in detail that at this point there is no indication for admission to the hospital. It is understood, however, that if the symptoms persist or worsen the patient needs to return immediately for re-evaluation. 07/18 13:06 Order name: CBC with Diff; Complete Time: 14:58 rn 07/18 13:06 Order name: Basic Metabolic Panel; Complete Time: 14:58 rn 07/18 13:06 Order name: CT Head C Spine; Complete Time: 14:58 rn 07/18 13:06 Order name: Protime (+inr); Complete Time: 14:58 rn 07/18 13:06 Order name: Ptt, Activated; Complete Time: 14:58 rn 07/18 13:06 Order name: XRAY Humerus LEFT; Complete Time: 14:58 rn 07/18 13:06 Order name: IV Start; Complete Time: 13:34 rn 07/18 13:06 Order name: XRAY Elbow LEFT 2 view; Complete Time: 14:58 rn 07/18 13:06 Order name: XRAY Forearm LEFT; Complete Time: 14:58 rn 07/18 13:06 Order name: XRAY Hip LEFT 2 view; Complete Time: 14:58 rn 07/18 13:06 Order name: XRAY Pelvis; Complete Time: 14:58 rn Administered Medications: No medications were administered Disposition: 07/18/19 15:04 Discharged to Home. Impression: Contusion of left upper arm, Contusion of right forearm, Strain of muscle, fascia and tendon at neck level, Contusion of left hip. - Condition is Stable. - Discharge Instructions: Contusion, Cervical Sprain, [id number]. - Medication Reconciliation Form, Thank You Letter, Antibiotic Education, Prescription Opioid Use form. - Follow up: Private Physician; When: As needed; Reason: Recheck today's complaints, Re-evaluation by your physician. - Problem is new. - Symptoms have improved. Signatures: Dispatcher [employer] Sara Pickens RN RN sv Deejay Bazzi MD MD rn Smirch, Shelby, RN RN ss Corrections: (The following items were deleted from the chart) 15:19 15:04 07/18/2019 15:04 Discharged to Home. Impression: Contusion of left upper arm; sv Contusion of right forearm; Strain of muscle, fascia and tendon at neck level; Contusion of left hip. Condition is Stable. Forms are Medication Reconciliation Form, Thank You Letter, Antibiotic Education, Prescription Opioid Use. Follow up: Private Physician; When: As needed; Reason: Recheck today's complaints, Re-evaluation by your physician. Problem is new. Symptoms have improved. rn
--- NOTE | 2019-07-18 15:05 | ER ---
Nurse's Notes [facility] Name: Zain Hope Age: 68 yrs Sex: Male : 1950 Arrival Date: 07/18/2019 Time: 12:57 Bed 6 Private MD: Diagnosis: Contusion of left upper arm;Contusion of right forearm;Strain of muscle, fascia and tendon at neck level;Contusion of left hip Presentation: 07/18 12:57 Presenting complaint: Patient states: L hip pain and neck pain after falling out of bed ss while attempting to transfer into wheelchair. Denies LOC. 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 Transition of care: [facility]. Onset of symptoms was July 18, 2019. Risk Assessment: Do you want to hurt yourself or someone else? Patient reports no desire to harm self or others. Initial Sepsis Screen: Does the patient meet any 2 criteria? No. Patient's initial sepsis screen is negative. Does the patient have a suspected source of infection? No. Patient's initial sepsis screen is negative. Care prior to arrival: Cervical collar in place. IV initiated. 20 GA, in the right antecubital area, Glucose check: 160. 12:57 Method Of Arrival: EMS: [facility] 12:57 Acuity: BRYANT 3 ss Historical: - Allergies: 13:03 No Known Allergies; ss - Home Meds: 13:03 acetaminophen 325 mg Oral tab 2 tabs every 4 hours [Active]; Arginaid 4.5 gram-156 ss mg/9.2 gram Oral pwpk twice a day [Active]; ascorbic acid (vitamin C) 500 mg tab twice a day [Active]; aspirin 81 mg Oral TbEC 1 tab once daily [Active]; atorvastatin 80 mg Oral tab 1 tab once daily [Active]; fluoxetine 20 mg Oral cap 1 cap once daily [Active]; Lantus 100 unit/mL Sub-Q soln 10 unit twice a day [Active]; levothyroxine 50 mcg tab 1 tab once daily [Active]; lidocaine 5 % Topical ptmd 1 patch once daily [Active]; losartan 25 mg Oral tab 0.5 tab once daily [Active]; metformin 1,000 mg Oral tab 1 tab 2 times per day [Active]; metoprolol tartrate 25 mg Oral tab 0.5 tab 2 times per day [Active]; senna 8.6 mg Oral tab once daily [Active]; ticagrelor 90 mg Oral 1 tab 2 times per day [Active]; tramadol 50 mg Oral tab 2 tabs every 6 hours [Active]; Zantac 150 mg Oral tab 1 tab once daily [Active]; - PMHx: 13:03 CVA; Depression; DYSPHAGIA; Diabetes - NIDDM; GERD; Hyperlipidemia; Hypertension; ss Hypothyroidism; - PSHx: 13:03 PEG tube; ss - Immunization history:: Adult Immunizations up to date. - Social history:: Smoking status: Patient/guardian denies using tobacco, the patient reports quitting approximately 1 years ago. - Ebola Screening: : Patient denies exposure to infectious person Patient denies travel to an Ebola-affected area in the 21 days before illness onset. - Family history:: not pertinent. - Hospitalizations: : No recent hospitalization is reported. Screenin:15 Abuse screen: Denies threats or abuse. Denies injuries from another. Nutritional sv screening: No deficits noted. Tuberculosis screening: No symptoms or risk factors identified. Fall Risk None identified. Assessment: 13:15 General: Appears in no apparent distress. uncomfortable, Behavior is cooperative, sv appropriate for age. Pain: Complains of pain in left hip and back of neck. Neuro: Level of Consciousness is awake, alert, obeys commands, Moves all extremities. Respiratory: Airway is patent Respiratory effort is even, unlabored, Respiratory pattern is regular, symmetrical. GI: PEG tube in place, clamped. Derm: Skin is normal. 13:34 Reassessment: Pt currently in radiology. sv 14:08 Reassessment: Patient appears in no apparent distress at this time. No changes from sv previously documented assessment. Patient and/or family updated on plan of care and expected duration. Pain level reassessed. 15:05 Reassessment: Attempted to call report, placed on hold and then phone kept ringing. sv 15:11 Reassessment: Pt's spouse taking pt back to the [place]. sv Vital Signs: 13:03 BP 157 / 91; Pulse 85; Resp 16; Temp 98.2(TE); Pulse Ox 99% on R/A; Weight 77.11 kg; ss 14:09 BP 164 / 88; Pulse 84; Resp 16; Pulse Ox 100% ; sv ED Course: 12:57 Patient arrived in ED. ss 12:58 Deejay Bazzi MD is Attending Physician. rn 12:59 Triage completed. ss 13:00 Maintain EMS IV. Dressing intact. Good blood return noted. Site clean \T\ dry. Gauge \T\ sv site: 20G R AC. 13:03 Arm band placed on right wrist. ss 13:14 Sara Méndez RN is Primary Nurse. sv 13:15 Patient has correct armband on for positive identification. Bed in low position. Call sv light in reach. Side rails up X2. Pulse ox on. NIBP on. Door closed. Head of bed elevated. 13:15 Initial lab(s) drawn, by me, sent to lab. sv 13:23 CT Head C Spine In Process Unspecified. EDMS 13:52 Patient moved back from radiology. sg 14:12 XRAY Humerus LEFT In Process Unspecified. EDMS 14:12 XRAY Elbow LEFT 2 view In Process Unspecified. EDMS 14:12 XRAY Forearm LEFT In Process Unspecified. EDMS 14:12 XRAY Hip LEFT 2 view In Process Unspecified. EDMS 14:12 XRAY Pelvis In Process Unspecified. EDMS 15:10 No provider procedures requiring assistance completed. IV discontinued, intact, sv bleeding controlled, No redness/swelling at site. Pressure dressing applied. Administered Medications: No medications were administered Outcome: 15:04 Discharge ordered by . rn 15:[facility] Report called to Cindy ANAYA sv 15:10 Condition: stable 15:10 Discharge instructions given to family, jail, Instructed on discharge instructions, follow up and referral plans. Demonstrated understanding of instructions, follow-up care. 15:19 Patient left the ED. sv Signatures: Dispatcher [employer] EDSD Sara Méndez, Humberto Diana RN, RN RN Deejay Bazzi MD MD rn Smirch, Shelby, RN RN Corrections: (The following items were deleted from the chart) 13:06 12:57 Care prior to arrival: IV initiated. 20 GA, in the right antecubital area, ss Glucose check: 160 ss 15:19 15:10 Discharged to jail. sv sv 15:19 15:10 Discharge instructions given to family, jail, Instructed on discharge sv instructions, follow up and referral plans. Demonstrated understanding of instructions, follow-up care, sv
[2019-07-18 17:04] VITALS: BP 164/88; O2SAT 100
[2019-07-18 17:06] VITALS: TEMP 98.2
== END 2019-07-18 15:19 | disposition home or self-care (01) ==
LOC: ER 12:54
DX: S16.1XXA Strain of muscle, fascia and tendon at neck level, initial encounter (principal); S70.02XA Contusion of left hip, initial encounter; S40.022A Contusion of left upper arm, initial encounter; S50.11XA Contusion of right forearm, initial encounter; W05.0XXA Fall from non-moving wheelchair, initial encounter; Y93.89 Activity, other specified; Y92.009 Unspecified place in unspecified non-institutional (private) residence as the place of occurrence of the external cause; Z79.82 Long term (current) use of aspirin; Z79.4 Long term (current) use of insulin; I10 Essential (primary) hypertension; E11.9 Type 2 diabetes mellitus without complications
CPT/HCPCS: 36415; 70450; 72125; 72170; 80048; 85025; 85610; 85730; 99284

== ENCOUNTER 2019-08-28 17:26 | Emergency (ER) | payer OTHER ==
--- OUTSIDE RECORDS SUMMARY | 2019-08-28 17:33 | XMS REPORT ---
:1950 [facility] Jeff Blue [address] [place] [id number] Care Team Providers Name Role Phone SARAHDALLASLISA VILLALBA Unavailable Unavailable Problems This patient has no known problems. Allergies, Adverse Reactions, Alerts This patient has no known allergies or adverse reactions. Medications This patient has no known medications. Results Test Description Test Time Test Comments Text Results Atomic Results Result Comments BLOOD CULTURE 2018-11-23 02:01:00 Test Item Value Reference Range Comments CULTURE (BEAKER) (test thxe=4862) No growth in 5 days BLOOD [id number] 02:01:00 Test Item Value Reference Range Comments CULTURE (BEAKER) (test cjkx=4999) No growth in 5 days POCT-GLUCOSE [id number] 17:22:00 Test Item Value Reference Range Comments POC-GLUCOSE METER (BEAKER) 212 mg/dL 70-110 TESTED AT [address] (test azgj=3539) [place] [address] POCT-GLUCOSE [id number] 12:44:00 Test Item Value Reference Range Comments POC-GLUCOSE METER (BEAKER) 229 mg/dL 70-110 TESTED AT [address] (test iqrv=0892) [place] [address] POCT-GLUCOSE [id number] 06:22:00 Test Item Value Reference Range Comments POC-GLUCOSE METER (BEAKER) 211 mg/dL 70-110 TESTED AT [address] (test chjt=4898) [place] [address] BASIC METABOLIC [id number] 06:20:00 Test Item Value Reference Range Comments SODIUM (BEAKER) (test 140 meq/L 136-145 smtw=897) POTASSIUM (BEAKER) (test 4.3 meq/L 3.5-5.1 bmcb=960) CHLORIDE (BEAKER) (test 106 meq/L 98-107 nzqo=706) CO2 (BEAKER) (test 27 meq/L 22-29 ehed=757) BLOOD UREA NITROGEN 35 mg/dL 7-21 (BEAKER) (test uclx=862) CREATININE (BEAKER) (test 0.95 mg/dL 0.57-1.25 cabk=724) GLUCOSE RANDOM (BEAKER) 200 mg/dL 70-105 (test xyyv=957) CALCIUM (BEAKER) (test 9.2 mg/dL 8.4-10.2 wewv=571) EGFR (BEAKER) (test 78 mL/min/1.73 sq m ESTIMATED GFR IS NOT cjqn=1397) ACCURATE CREATININE CLEARANCE IN PREDICTING GLOMERULAR FILTRATION RATE. ESTIMATED GFR IS NOT APPLICABLE FOR DIALYSIS PATIENTS. CBC (HEMOGRAM ONLY)2018-11-20 05:54:00 Test Item Value Reference Range Comments WHITE BLOOD CELL COUNT (BEAKER) (test qtvf=921) 10.6 K/ L 3.5-10.5 RED BLOOD CELL COUNT (BEAKER) (test spev=824) 4.30 M/ L 4.63-6.08 HEMOGLOBIN (BEAKER) (test obja=448) 12.0 GM/DL 13.7-17.5 HEMATOCRIT (BEAKER) (test ethb=004) 37.9 % 40.1-51.0 MEAN CORPUSCULAR VOLUME (BEAKER) (test bvhx=450) 88.1 fL 79.0-92.2 MEAN CORPUSCULAR HEMOGLOBIN (BEAKER) (test 27.9 pg 25.7-32.2 nrkg=518) MEAN CORPUSCULAR HEMOGLOBIN CONC (BEAKER) (test 31.7 GM/DL 32.3-36.5 xfnl=598) RED CELL DISTRIBUTION WIDTH (BEAKER) (test 15.0 % 11.6-14.4 kloa=624) PLATELET COUNT (BEAKER) (test eoqn=198) 339 K/CU MM 150-450 MEAN PLATELET VOLUME (BEAKER) (test zzjy=389) 11.5 fL 9.4-12.4 NUCLEATED RED BLOOD CELLS (BEAKER) (test 0 /100 WBC 0-0 wgwe=320) POCT-GLUCOSE [id number] 23:49:00 Test Item Value Reference Range Comments POC-GLUCOSE METER (BEAKER) 230 mg/dL 70-110 TESTED AT [address] (test jckr=0587) [place] [id number] POCT-GLUCOSE [id number] 18:04:00 Test Item Value Reference Range Comments POC-GLUCOSE METER (BEAKER) 256 mg/dL 70-110 TESTED AT [address] (test gyml=9719) [place] [address] URINALYSIS WITH MICROSCOPIC IF [id number] 14:11:00 Test Item Value Reference Range Comments COLOR (BEAKER) (test zqhf=504) Yellow CLARITY (BEAKER) (test piux=157) Hazy SPECIFIC GRAVITY UA (BEAKER) (test fakt=930) 1.016 1.001-1.035 PH UA (BEAKER) (test cdwe=799) 7.5 5.0-8.0 PROTEIN UA (BEAKER) (test ajrb=904) Negative Negative GLUCOSE UA (BEAKER) (test wkcd=359) Negative Negative KETONES UA (BEAKER) (test bxvb=964) Negative Negative BILIRUBIN UA (BEAKER) (test papo=586) Negative Negative BLOOD UA (BEAKER) (test emlw=981) Negative Negative NITRITE UA (BEAKER) (test yedq=298) Negative Negative LEUKOCYTE ESTERASE UA (BEAKER) (test ismv=424) Negative Negative UROBILINOGEN UA (BEAKER) (test rgfu=391) 0.2 mg/dL 0.2-1.0 SOURCE(BEAKER) (test guzo=9283) POCT-GLUCOSE [id number] 12:12:00 Test Item Value Reference Range Comments POC-GLUCOSE METER (BEAKER) 227 mg/dL 70-110 TESTED AT [address] (test htym=1118) [place] [id number] POCT-GLUCOSE [id number] 11:58:00 Test Item Value Reference Range Comments POC-GLUCOSE METER (BEAKER) 243 mg/dL 70-110 TESTED AT [address] (test ozvx=8383) [place] [address] BASIC METABOLIC [id number] 05:42:00 Test Item Value Reference Range Comments SODIUM (BEAKER) (test 140 meq/L 136-145 ipwo=180) POTASSIUM (BEAKER) (test 4.5 meq/L 3.5-5.1 jsyi=512) CHLORIDE (BEAKER) (test 105 meq/L 98-107 hvri=805) CO2 (BEAKER) (test 27 meq/L 22-29 bcgk=059) BLOOD UREA NITROGEN 40 mg/dL 7-21 (BEAKER) (test lnqm=674) CREATININE (BEAKER) (test 1.01 mg/dL 0.57-1.25 hiab=506) GLUCOSE RANDOM (BEAKER) 231 mg/dL 70-105 (test ytkv=216) CALCIUM (BEAKER) (test 9.4 mg/dL 8.4-10.2 ilbz=702) EGFR (BEAKER) (test 73 mL/min/1.73 sq m ESTIMATED GFR IS NOT fvcp=3326) ACCURATE CREATININE CLEARANCE IN PREDICTING GLOMERULAR FILTRATION RATE. ESTIMATED GFR IS NOT APPLICABLE FOR DIALYSIS PATIENTS. CBC (HEMOGRAM ONLY)2018-11-19 05:23:00 Test Item Value Reference Range Comments WHITE BLOOD CELL COUNT (BEAKER) (test agtl=525) 11.9 K/ L 3.5-10.5 RED BLOOD CELL COUNT (BEAKER) (test qswe=350) 4.05 M/ L 4.63-6.08 HEMOGLOBIN (BEAKER) (test lrdm=444) 11.5 GM/DL 13.7-17.5 HEMATOCRIT (BEAKER) (test tprp=960) 35.3 % 40.1-51.0 MEAN CORPUSCULAR VOLUME (BEAKER) (test blrp=432) 87.2 fL 79.0-92.2 MEAN CORPUSCULAR HEMOGLOBIN (BEAKER) (test 28.4 pg 25.7-32.2 jixr=014) MEAN CORPUSCULAR HEMOGLOBIN CONC (BEAKER) (test 32.6 GM/DL 32.3-36.5 rqtg=105) RED CELL DISTRIBUTION WIDTH (BEAKER) (test 14.7 % 11.6-14.4 zoon=001) PLATELET COUNT (BEAKER) (test tzqs=975) 354 K/CU MM 150-450 MEAN PLATELET VOLUME (BEAKER) (test ouni=844) 11.2 fL 9.4-12.4 NUCLEATED RED BLOOD CELLS (BEAKER) (test 0 /100 WBC 0-0 mens=012) POCT-GLUCOSE [id number] 17:25:00 Test Item Value Reference Range Comments POC-GLUCOSE METER (BEAKER) 267 mg/dL 70-110 TESTED AT [address] (test zmwi=7842) [place] [address] URINALYSIS W/ REFLEX URINE [id number] 14:12:00 Test Item Value Reference Range Comments COLOR (BEAKER) (test nnxx=032) Yellow CLARITY (BEAKER) (test lder=981) Clear SPECIFIC GRAVITY UA (BEAKER) (test hisd=227) 1.018 1.001-1.035 PH UA (BEAKER) (test gsnh=656) 6.5 5.0-8.0 PROTEIN UA (BEAKER) (test nfnq=593) 10 mg/dL Negative GLUCOSE UA (BEAKER) (test pyjt=896) Negative Negative KETONES UA (BEAKER) (test lsmm=381) Negative Negative BILIRUBIN UA (BEAKER) (test kixf=678) Negative Negative BLOOD UA (BEAKER) (test mwch=165) Negative Negative NITRITE UA (BEAKER) (test lcrp=223) Positive Negative LEUKOCYTE ESTERASE UA (BEAKER) (test dtzv=540) Moderate Negative UROBILINOGEN UA (BEAKER) (test aent=617) 0.2 mg/dL 0.2-1.0 RBC UA (BEAKER) (test vswa=447) < /HPF WBC UA (BEAKER) (test gbij=244) 15 /HPF BACTERIA (BEAKER) (test ezak=829) Rare MUCUS (BEAKER) (test kmsm=4372) Rare YEAST (BEAKER) (test olof=8778) Rare SOURCE(BEAKER) (test bfop=4549) POCT-GLUCOSE [id number] 11:51:00 Test Item Value Reference Range Comments POC-GLUCOSE METER (BEAKER) 258 mg/dL 70-110 TESTED AT [address] (test ctin=5034) [place] [address] POCT-GLUCOSE [id number] 09:43:00 Test Item Value Reference Range Comments POC-GLUCOSE METER (BEAKER) 235 mg/dL 70-110 TESTED AT [address] (test vlwe=9502) [place] [address] TROPONIN [id number] 05:55:00 Test Item Value Reference Range Comments TROPONIN I (BEAKER) (test sxph=094) 1.66 ng/mL 0.00-0.03 Troponin I (TnI) levels [...] acute neurological disease, and persistent tachyarrhythmia.BASIC METABOLIC [id number] 05:53:00 Test Item Value Reference Range Comments SODIUM (BEAKER) (test 139 meq/L 136-145 tjih=182) POTASSIUM (BEAKER) (test 4.5 meq/L 3.5-5.1 Specimen slightly vnoo=525) hemolyzed CHLORIDE (BEAKER) (test 104 meq/L 98-107 nryf=192) CO2 (BEAKER) (test 27 meq/L 22-29 rsxp=636) BLOOD UREA NITROGEN 37 mg/dL 7-21 (BEAKER) (test oxtu=757) CREATININE (BEAKER) (test 0.98 mg/dL 0.57-1.25 Specimen slightly qtow=538) hemolyzed GLUCOSE RANDOM (BEAKER) 214 mg/dL 70-105 (test wgej=126) CALCIUM (BEAKER) (test 9.4 mg/dL 8.4-10.2 sleq=920) EGFR (BEAKER) (test 76 mL/min/1.73 sq m ESTIMATED GFR IS NOT hlkp=8670) ACCURATE CREATININE CLEARANCE IN PREDICTING GLOMERULAR FILTRATION RATE. ESTIMATED GFR IS NOT APPLICABLE FOR DIALYSIS PATIENTS. CBC (HEMOGRAM ONLY)2018-11-18 05:27:00 Test Item Value Reference Range Comments WHITE BLOOD CELL COUNT (BEAKER) (test rdht=302) 11.7 K/ L 3.5-10.5 RED BLOOD CELL COUNT (BEAKER) (test slrt=614) 4.10 M/ L 4.63-6.08 HEMOGLOBIN (BEAKER) (test fflj=039) 11.7 GM/DL 13.7-17.5 HEMATOCRIT (BEAKER) (test tvgt=263) 35.6 % 40.1-51.0 MEAN CORPUSCULAR VOLUME (BEAKER) (test dgzw=829) 86.8 fL 79.0-92.2 MEAN CORPUSCULAR HEMOGLOBIN (BEAKER) (test 28.5 pg 25.7-32.2 kazh=483) MEAN CORPUSCULAR HEMOGLOBIN CONC (BEAKER) (test 32.9 GM/DL 32.3-36.5 idpz=504) RED CELL DISTRIBUTION WIDTH (BEAKER) (test 14.6 % 11.6-14.4 siev=355) PLATELET COUNT (BEAKER) (test jeps=521) 361 K/CU MM 150-450 MEAN PLATELET VOLUME (BEAKER) (test tnwu=737) 11.1 fL 9.4-12.4 NUCLEATED RED BLOOD CELLS (BEAKER) (test 0 /100 WBC 0-0 wquf=609) POCT-GLUCOSE [id number] 01:42:00 Test Item Value Reference Range Comments POC-GLUCOSE METER (BEAKER) 239 mg/dL 70-110 TESTED AT [facility] [address] [facility] (test otws=8430) [facility] [address] TROPONIN [id number] 00:15:00 Test Item Value Reference Range Comments TROPONIN I (BEAKER) (test qhdy=262) 1.73 ng/mL 0.00-0.03 Troponin I (TnI) levels [...] disease, and persistent tachyarrhythmia.URINALYSIS WITH MICROSCOPIC IF [id number] 00:06:00 Test Item Value Reference Range Comments COLOR (BEAKER) (test xcfp=432) Yellow CLARITY (BEAKER) (test szqx=064) Hazy SPECIFIC GRAVITY UA (BEAKER) (test yzvy=438) 1.017 1.001-1.035 PH UA (BEAKER) (test dlao=781) 6.5 5.0-8.0 PROTEIN UA (BEAKER) (test hvfg=269) Negative Negative GLUCOSE UA (BEAKER) (test szlf=877) Negative Negative KETONES UA (BEAKER) (test njix=816) Trace Negative BILIRUBIN UA (BEAKER) (test mndc=629) Negative Negative BLOOD UA (BEAKER) (test char=291) Negative Negative NITRITE UA (BEAKER) (test wjns=848) Positive Negative LEUKOCYTE ESTERASE UA (BEAKER) (test pncw=854) Small Negative UROBILINOGEN UA (BEAKER) (test yjjy=088) 0.2 mg/dL 0.2-1.0 SOURCE(BEAKER) (test nmwy=3205) URINALYSIS [id number] 00:06:00 Test Item Value Reference Range Comments RBC UA (BEAKER) (test yspd=508) 1 /HPF WBC UA (BEAKER) (test juna=171) 5 /HPF BACTERIA (BEAKER) (test rmir=470) Rare MUCUS (BEAKER) (test trig=5831) Rare TROPONIN [id number] 18:49:00 Test Item Value Reference Range Comments TROPONIN I (BEAKER) (test cqih=638) 1.45 ng/mL 0.00-0.03 Troponin I (TnI) levels [...] acidosis, acute neurological disease, and persistent tachyarrhythmia.POCT-GLUCOSE [id number] 16:26:00 Test Item Value Reference Range Comments POC-GLUCOSE METER (BEAKER) 316 mg/dL 70-110 Notified JACLYN DUKES/TESTED AT [facility] (test loyy=1848) [address] [facility] [address] POCT-GLUCOSE [id number] 13:27:00 Test Item Value Reference Range Comments POC-GLUCOSE METER (BEAKER) 272 mg/dL 70-110 TESTED AT [address] (test ujyc=8593) [facility] [address] TROPONIN [id number] 11:19:00 Test Item Value Reference Range Comments TROPONIN I (BEAKER) (test ubfi=176) 0.84 ng/mL 0.00-0.03 Troponin I (TnI) levels [...] acute neurological disease, and persistent tachyarrhythmia.BASIC METABOLIC [id number] 07:39:00 Test Item Value Reference Range Comments SODIUM (BEAKER) (test 137 meq/L 136-145 qswh=499) POTASSIUM (BEAKER) (test 4.6 meq/L 3.5-5.1 amoj=304) CHLORIDE (BEAKER) (test 104 meq/L 98-107 ymea=092) CO2 (BEAKER) (test 24 meq/L 22-29 euqj=286) BLOOD UREA NITROGEN 35 mg/dL 7-21 (BEAKER) (test kyzh=648) CREATININE (BEAKER) (test 1.02 mg/dL 0.57-1.25 rlwl=944) GLUCOSE RANDOM (BEAKER) 242 mg/dL 70-105 (test prvk=011) CALCIUM (BEAKER) (test 9.5 mg/dL 8.4-10.2 rvzd=697) EGFR (BEAKER) (test 72 mL/min/1.73 sq m ESTIMATED GFR IS NOT iqox=9852) ACCURATE CREATININE CLEARANCE IN PREDICTING GLOMERULAR FILTRATION RATE. ESTIMATED GFR IS NOT APPLICABLE FOR DIALYSIS PATIENTS. TROPONIN [id number] 06:49:00 Test Item Value Reference Range Comments TROPONIN I (BEAKER) (test wcnq=852) 0.23 ng/mL 0.00-0.03 Troponin I (TnI) levels [...] acidosis, acute neurological disease, and persistent tachyarrhythmia.POCT-GLUCOSE [id number] 05:50:00 Test Item Value Reference Range Comments POC-GLUCOSE METER (BEAKER) 244 mg/dL 70-110 TESTED AT [facility] [address] [facility] (test rvwg=9764) [facility] [address] CBC (HEMOGRAM ONLY)2018-11-17 04:38:00 Test Item Value Reference Range Comments WHITE BLOOD CELL COUNT (BEAKER) (test ezaz=617) 13.2 K/ L 3.5-10.5 RED BLOOD CELL COUNT (BEAKER) (test iuwq=946) 4.23 M/ L 4.63-6.08 HEMOGLOBIN (BEAKER) (test xoqy=568) 11.9 GM/DL 13.7-17.5 HEMATOCRIT (BEAKER) (test ijib=593) 37.0 % 40.1-51.0 MEAN CORPUSCULAR VOLUME (BEAKER) (test aavk=243) 87.5 fL 79.0-92.2 MEAN CORPUSCULAR HEMOGLOBIN (BEAKER) (test 28.1 pg 25.7-32.2 rpey=251) MEAN CORPUSCULAR HEMOGLOBIN CONC (BEAKER) (test 32.2 GM/DL 32.3-36.5 gisw=233) RED CELL DISTRIBUTION WIDTH (BEAKER) (test 14.8 % 11.6-14.4 jqcl=960) PLATELET COUNT (BEAKER) (test uvxm=020) 391 K/CU MM 150-450 MEAN PLATELET VOLUME (BEAKER) (test yrbv=679) 10.7 fL 9.4-12.4 NUCLEATED RED BLOOD CELLS (BEAKER) (test 0 /100 WBC 0-0 cudm=559) POCT-GLUCOSE [id number] 23:38:00 Test Item Value Reference Range Comments POC-GLUCOSE METER (BEAKER) 232 mg/dL 70-110 TESTED AT [address] (test wvcz=8355) [place] [address] TROPONIN [id number] 18:59:00 Test Item Value Reference Range Comments TROPONIN I (BEAKER) (test xehj=898) 0.02 ng/mL 0.00-0.03 Troponin I (TnI) levels [...] acidosis, acute neurological disease, and persistent tachyarrhythmia.POCT-GLUCOSE [id number] 18:22:00 Test Item Value Reference Range Comments POC-GLUCOSE METER (BEAKER) 244 mg/dL 70-110 TESTED AT [address] (test ewoq=9742) [place] [address] BASIC METABOLIC [id number] 06:29:00 Test Item Value Reference Range Comments SODIUM (BEAKER) (test 135 meq/L 136-145 pofo=976) POTASSIUM (BEAKER) (test 4.5 meq/L 3.5-5.1 xwrq=109) CHLORIDE (BEAKER) (test 101 meq/L 98-107 akgf=441) CO2 (BEAKER) (test 26 meq/L 22-29 lilk=870) BLOOD UREA NITROGEN 35 mg/dL 7-21 (BEAKER) (test reqh=655) CREATININE (BEAKER) (test 1.02 mg/dL 0.57-1.25 gtoc=922) GLUCOSE RANDOM (BEAKER) 218 mg/dL 70-105 (test blxb=562) CALCIUM (BEAKER) (test 9.6 mg/dL 8.4-10.2 knip=566) EGFR (BEAKER) (test 72 mL/min/1.73 sq m ESTIMATED GFR IS NOT lovl=7144) ACCURATE CREATININE CLEARANCE IN PREDICTING GLOMERULAR FILTRATION RATE. ESTIMATED GFR IS NOT APPLICABLE FOR DIALYSIS PATIENTS. CBC (HEMOGRAM ONLY)2018-11-16 06:02:00 Test Item Value Reference Range Comments WHITE BLOOD CELL COUNT (BEAKER) (test nzsi=653) 11.8 K/ L 3.5-10.5 RED BLOOD CELL COUNT (BEAKER) (test rfep=768) 4.32 M/ L 4.63-6.08 HEMOGLOBIN (BEAKER) (test akaa=171) 12.4 GM/DL 13.7-17.5 HEMATOCRIT (BEAKER) (test ivag=546) 37.3 % 40.1-51.0 MEAN CORPUSCULAR VOLUME (BEAKER) (test xike=002) 86.3 fL 79.0-92.2 MEAN CORPUSCULAR HEMOGLOBIN (BEAKER) (test 28.7 pg 25.7-32.2 qxdz=949) MEAN CORPUSCULAR HEMOGLOBIN CONC (BEAKER) (test 33.2 GM/DL 32.3-36.5 aylh=164) RED CELL DISTRIBUTION WIDTH (BEAKER) (test 14.6 % 11.6-14.4 ehxs=141) PLATELET COUNT (BEAKER) (test mrzr=668) 379 K/CU MM 150-450 MEAN PLATELET VOLUME (BEAKER) (test qwlq=322) 10.6 fL 9.4-12.4 NUCLEATED RED BLOOD CELLS (BEAKER) (test 0 /100 WBC 0-0 lkyh=198) POCT-GLUCOSE [id number] 05:53:00 Test Item Value Reference Range Comments POC-GLUCOSE METER (BEAKER) 208 mg/dL 70-110 TESTED AT [address] (test urvn=1069) [facility] [address] POCT-GLUCOSE [id number] 23:49:00 Test Item Value Reference Range Comments POC-GLUCOSE METER (BEAKER) 221 mg/dL 70-110 TESTED AT [address] (test mpko=1629) [facility] [address] POCT-GLUCOSE [id number] 17:37:00 Test Item Value Reference Range Comments POC-GLUCOSE METER (BEAKER) 237 mg/dL 70-110 TESTED AT [address] (test frhr=1711) [facility] [address] POCT-GLUCOSE [id number] 12:33:00 Test Item Value Reference Range Comments POC-GLUCOSE METER (BEAKER) 223 mg/dL 70-110 TESTED AT [address] (test rumk=9853) [facility] [address] POCT-GLUCOSE [id number] 06:38:00 Test Item Value Reference Range Comments POC-GLUCOSE METER (BEAKER) 247 mg/dL 70-110 TESTED AT [address] (test lseu=5789) [facility] [address] BASIC METABOLIC [id number] 06:01:00 Test Item Value Reference Range Comments SODIUM (BEAKER) (test 135 meq/L 136-145 nhoa=214) POTASSIUM (BEAKER) (test 4.7 meq/L 3.5-5.1 cqpu=643) CHLORIDE (BEAKER) (test 100 meq/L 98-107 sylx=820) CO2 (BEAKER) (test 25 meq/L 22-29 ydxg=370) BLOOD UREA NITROGEN 29 mg/dL 7-21 (BEAKER) (test peor=074) CREATININE (BEAKER) (test 0.97 mg/dL 0.57-1.25 vrnf=562) GLUCOSE RANDOM (BEAKER) 217 mg/dL 70-105 (test qdbl=650) CALCIUM (BEAKER) (test 9.6 mg/dL 8.4-10.2 ixue=064) EGFR (BEAKER) (test 77 mL/min/1.73 sq m ESTIMATED GFR IS NOT nwwx=2554) ACCURATE CREATININE CLEARANCE IN PREDICTING GLOMERULAR FILTRATION RATE. ESTIMATED GFR IS NOT APPLICABLE FOR DIALYSIS PATIENTS. CBC (HEMOGRAM ONLY)2018-11-15 05:41:00 Test Item Value Reference Range Comments WHITE BLOOD CELL COUNT (BEAKER) (test zbfj=310) 12.0 K/ L 3.5-10.5 RED BLOOD CELL COUNT (BEAKER) (test bvwu=555) 4.34 M/ L 4.63-6.08 HEMOGLOBIN (BEAKER) (test jyqo=697) 12.4 GM/DL 13.7-17.5 HEMATOCRIT (BEAKER) (test hpjk=757) 37.5 % 40.1-51.0 MEAN CORPUSCULAR VOLUME (BEAKER) (test vodx=413) 86.4 fL 79.0-92.2 MEAN CORPUSCULAR HEMOGLOBIN (BEAKER) (test 28.6 pg 25.7-32.2 alvg=003) MEAN CORPUSCULAR HEMOGLOBIN CONC (BEAKER) (test 33.1 GM/DL 32.3-36.5 hdob=835) RED CELL DISTRIBUTION WIDTH (BEAKER) (test 14.6 % 11.6-14.4 eohj=166) PLATELET COUNT (BEAKER) (test jliu=570) 373 K/CU MM 150-450 MEAN PLATELET VOLUME (BEAKER) (test owfz=993) 10.8 fL 9.4-12.4 NUCLEATED RED BLOOD CELLS (BEAKER) (test 0 /100 WBC 0-0 wrjc=137) POCT-GLUCOSE [id number] 02:35:00 Test Item Value Reference Range Comments POC-GLUCOSE METER (BEAKER) 220 mg/dL 70-110 TESTED AT [address] (test uugo=4661) [facility] [address] POCT-GLUCOSE [id number] 16:55:00 Test Item Value Reference Range Comments POC-GLUCOSE METER (BEAKER) 239 mg/dL 70-110 TESTED AT [address] (test rfeh=5539) [facility] [address] POCT-GLUCOSE [id number] 12:09:00 Test Item Value Reference Range Comments POC-GLUCOSE METER (BEAKER) 246 mg/dL 70-110 TESTED AT [address] (test tmix=7400) [place] [id number] BASIC METABOLIC [id number] 05:52:00 Test Item Value Reference Range Comments SODIUM (BEAKER) (test 137 meq/L 136-145 vaxn=063) POTASSIUM (BEAKER) (test 4.2 meq/L 3.5-5.1 xcbl=945) CHLORIDE (BEAKER) (test 101 meq/L 98-107 iyex=550) CO2 (BEAKER) (test 29 meq/L 22-29 lcsi=406) BLOOD UREA NITROGEN 26 mg/dL 7-21 (BEAKER) (test zwex=532) CREATININE (BEAKER) (test 0.93 mg/dL 0.57-1.25 twdc=453) GLUCOSE RANDOM (BEAKER) 209 mg/dL 70-105 (test ugzk=475) CALCIUM (BEAKER) (test 9.7 mg/dL 8.4-10.2 mzgo=148) EGFR (BEAKER) (test 80 mL/min/1.73 sq m ESTIMATED GFR IS NOT avms=6872) ACCURATE CREATININE CLEARANCE IN PREDICTING GLOMERULAR FILTRATION RATE. ESTIMATED GFR IS NOT APPLICABLE FOR DIALYSIS PATIENTS. POCT-GLUCOSE [id number] 05:37:00 Test Item Value Reference Range Comments POC-GLUCOSE METER (BEAKER) 181 mg/dL 70-110 TESTED AT [address] (test ibuf=1634) [place] [address] CBC (HEMOGRAM ONLY)2018-11-14 05:37:00 Test Item Value Reference Range Comments WHITE BLOOD CELL COUNT (BEAKER) (test nhmk=866) 10.7 K/ L 3.5-10.5 RED BLOOD CELL COUNT (BEAKER) (test lkrc=151) 4.16 M/ L 4.63-6.08 HEMOGLOBIN (BEAKER) (test sxuz=303) 11.8 GM/DL 13.7-17.5 HEMATOCRIT (BEAKER) (test vupg=272) 36.1 % 40.1-51.0 MEAN CORPUSCULAR VOLUME (BEAKER) (test kxdk=061) 86.8 fL 79.0-92.2 MEAN CORPUSCULAR HEMOGLOBIN (BEAKER) (test 28.4 pg 25.7-32.2 swqy=362) MEAN CORPUSCULAR HEMOGLOBIN CONC (BEAKER) (test 32.7 GM/DL 32.3-36.5 bvox=724) RED CELL DISTRIBUTION WIDTH (BEAKER) (test 14.6 % 11.6-14.4 mcyo=851) PLATELET COUNT (BEAKER) (test pooe=462) 331 K/CU MM 150-450 MEAN PLATELET VOLUME (BEAKER) (test nbgr=088) 10.5 fL 9.4-12.4 NUCLEATED RED BLOOD CELLS (BEAKER) (test 0 /100 WBC 0-0 balr=458) POCT-GLUCOSE [id number] 00:10:00 Test Item Value Reference Range Comments POC-GLUCOSE METER (BEAKER) 225 mg/dL 70-110 TESTED AT [address] (test nkhh=6152) [place] [address] POCT-GLUCOSE [id number] 17:58:00 Test Item Value Reference Range Comments POC-GLUCOSE METER (BEAKER) 221 mg/dL 70-110 TESTED AT [address] (test ydni=4257) [place] [address] CT, SPINE, CERVICAL, WO [id number] 15:33:00FINAL REPORT EXAM: CERVICAL SPINE CT WITHOUT [...] Verified Date/ Time: 11/13/2018 15:33:48 Reading Location: [facility] Radiology Reading Room CT, BRAIN, WITHOUT [id number] 15:22:00FINAL REPORT CT head without contrast. Reason [...] Parker Verified Date/Time: 11/13/2018 15:22:34 Reading Location: [facility] [id number] Consult Reading Room POCT-GLUCOSE [id number] 12:10:00 Test Item Value Reference Range Comments POC-GLUCOSE METER (BEAKER) 218 mg/dL 70-110 TESTED AT [address] (test gghl=5717) [facility] [address] BASIC METABOLIC [id number] 08:05:00 Test Item Value Reference Range Comments SODIUM (BEAKER) (test 135 meq/L 136-145 iend=557) POTASSIUM (BEAKER) (test 4.7 meq/L 3.5-5.1 hsdc=164) CHLORIDE (BEAKER) (test 101 meq/L 98-107 hlcw=226) CO2 (BEAKER) (test 28 meq/L 22-29 flvk=809) BLOOD UREA NITROGEN 21 mg/dL 7-21 (BEAKER) (test sdao=773) CREATININE (BEAKER) (test 0.87 mg/dL 0.57-1.25 khbf=927) GLUCOSE RANDOM (BEAKER) 206 mg/dL 70-105 (test qciw=665) CALCIUM (BEAKER) (test 9.8 mg/dL 8.4-10.2 dzty=035) EGFR (BEAKER) (test 87 mL/min/1.73 sq m ESTIMATED GFR IS NOT abey=5512) ACCURATE CREATININE CLEARANCE IN PREDICTING GLOMERULAR FILTRATION RATE. ESTIMATED GFR IS NOT APPLICABLE FOR DIALYSIS PATIENTS. CBC W/PLT COUNT & AUTO [id number] 08:02:00 Test Item Value Reference Range Comments WHITE BLOOD CELL COUNT (BEAKER) (test snms=666) 13.4 K/ L 3.5-10.5 RED BLOOD CELL COUNT (BEAKER) (test xniz=375) 4.20 M/ L 4.63-6.08 HEMOGLOBIN (BEAKER) (test qeli=487) 11.9 GM/DL 13.7-17.5 HEMATOCRIT (BEAKER) (test aixa=158) 36.1 % 40.1-51.0 MEAN CORPUSCULAR VOLUME (BEAKER) (test gmpr=798) 86.0 fL 79.0-92.2 MEAN CORPUSCULAR HEMOGLOBIN (BEAKER) (test 28.3 pg 25.7-32.2 joxg=441) MEAN CORPUSCULAR HEMOGLOBIN CONC (BEAKER) (test 33.0 GM/DL 32.3-36.5 fyrp=004) RED CELL DISTRIBUTION WIDTH (BEAKER) (test 14.6 % 11.6-14.4 dmus=728) PLATELET COUNT (BEAKER) (test ccoz=204) 333 K/CU MM 150-450 MEAN PLATELET VOLUME (BEAKER) (test kekm=387) 10.3 fL 9.4-12.4 NUCLEATED RED BLOOD CELLS (BEAKER) (test 0 /100 WBC 0-0 ndrx=726) NEUTROPHILS RELATIVE PERCENT (BEAKER) (test 80 % pfwn=996) LYMPHOCYTES RELATIVE PERCENT (BEAKER) (test 11 % cwul=549) MONOCYTES RELATIVE PERCENT (BEAKER) (test 6 % ibph=230) EOSINOPHILS RELATIVE PERCENT (BEAKER) (test 3 % tjqg=988) BASOPHILS RELATIVE PERCENT (BEAKER) (test 0 % yvou=937) NEUTROPHILS ABSOLUTE COUNT (BEAKER) (test 10.63 K/ L 1.78-5.38 qzzj=453) LYMPHOCYTES ABSOLUTE COUNT (BEAKER) (test 1.52 K/ L 1.32-3.57 esjv=975) MONOCYTES ABSOLUTE COUNT (BEAKER) (test 0.76 K/ L 0.30-0.82 kzay=369) EOSINOPHILS ABSOLUTE COUNT (BEAKER) (test 0.35 K/ L 0.04-0.54 jtry=744) BASOPHILS ABSOLUTE COUNT (BEAKER) (test 0.04 K/ L 0.01-0.08 rrga=839) IMMATURE GRANULOCYTES-RELATIVE PERCENT (BEAKER) 1 % 0-1 (test asxm=3843) POCT-GLUCOSE [id number] 05:35:00 Test Item Value Reference Range Comments POC-GLUCOSE METER (BEAKER) 190 mg/dL 70-110 TESTED AT [address] (test rqpn=3270) [facility] [facility] [address] POCT-GLUCOSE [id number] 00:25:00 Test Item Value Reference Range Comments POC-GLUCOSE METER (BEAKER) 193 mg/dL 70-110 TESTED AT [address] (test ubac=6196) [facility] [address] POCT-GLUCOSE [id number] 18:09:00 Test Item Value Reference Range Comments POC-GLUCOSE METER (BEAKER) 204 mg/dL 70-110 TESTED AT [address] (test ojmn=3130) [facility] [address] [place], CAROTID STENT W [id number] 14:42:00Reason for exam:->R carotid stent for carotid stenosisFINAL REPORT DATE OF PROCEDURE: 11/07/2018 SURGEON: Garrett Echevarria M.D. KNITTING MACHINE MECHANIC: Lon Lopez MD PREOPERATIVE DIAGNOSIS: Right hemispheric stroke with severe right carotid artery stenosis POST OPERATIVE DIAGNOSIS: Right hemispheric stroke with severe right carotid artery stenosis OPERATION: 1) Cerebral Angiogram2) right carotid stent IMPLANTS: Precise Pro Stent [id number] stent 8-6 x 40 ANESTHESIA: Moderate sedation [...] Serial dilation was performedand then a 9 [place] short sheath was placed in the right common femoral artery and placed on heparinized flush. Angiography was performed via the sheath confirmed satisfactory placement. A 5 [place] diagnostic glide catheter was then used to [...] MDReport Verified Date/Time: 2018 14:42:01 Reading Location: [place] [address] Neuro Angio Reading Room [place], ANGIOGRAM, [id number] 14:41:00Reason for exam:->right ICA stenosisFINAL REPORT DATE [...] removed and hemostasis was achieved with a 6-[place] AngioSeal closuredevice. The patient tolerated the procedure [...] Verified Date/Time: 11/12/2018 14:41 :58 [facility] POCT-GLUCOSE [id number] 12:37:00 Test Item Value Reference Range Comments POC-GLUCOSE METER (BEAKER) 157 mg/dL 70-110 TESTED AT [address] (test hzxk=6277) [facility] [address] POCT-GLUCOSE [id number] 06:41:00 Test Item Value Reference Range Comments POC-GLUCOSE METER (BEAKER) 176 mg/dL 70-110 TESTED AT [address] (test lkta=4473) [place] [id number] BASIC METABOLIC [id number] 06:30:00 Test Item Value Reference Range Comments SODIUM (BEAKER) (test 133 meq/L 136-145 xcnh=555) POTASSIUM (BEAKER) (test 4.3 meq/L 3.5-5.1 wwzh=800) CHLORIDE (BEAKER) (test 101 meq/L 98-107 xvom=553) CO2 (BEAKER) (test 25 meq/L 22-29 qxut=777) BLOOD UREA NITROGEN 18 mg/dL 7-21 (BEAKER) (test ucuv=516) CREATININE (BEAKER) (test 0.81 mg/dL 0.57-1.25 djkq=665) GLUCOSE RANDOM (BEAKER) 180 mg/dL 70-105 (test vigh=754) CALCIUM (BEAKER) (test 9.4 mg/dL 8.4-10.2 stlc=408) EGFR (BEAKER) (test 94 mL/min/1.73 sq m ESTIMATED GFR IS NOT ofzo=2723) ACCURATE CREATININE CLEARANCE IN PREDICTING GLOMERULAR FILTRATION RATE. ESTIMATED GFR IS NOT APPLICABLE FOR DIALYSIS PATIENTS. CBC (HEMOGRAM ONLY)2018-11-12 05:08:00 Test Item Value Reference Range Comments WHITE BLOOD CELL COUNT (BEAKER) (test zwga=659) 13.4 K/ L 3.5-10.5 RED BLOOD CELL COUNT (BEAKER) (test znsd=474) 3.94 M/ L 4.63-6.08 HEMOGLOBIN (BEAKER) (test hlvj=522) 11.3 GM/DL 13.7-17.5 HEMATOCRIT (BEAKER) (test thqq=747) 33.9 % 40.1-51.0 MEAN CORPUSCULAR VOLUME (BEAKER) (test jhry=381) 86.0 fL 79.0-92.2 MEAN CORPUSCULAR HEMOGLOBIN (BEAKER) (test 28.7 pg 25.7-32.2 siqt=686) MEAN CORPUSCULAR HEMOGLOBIN CONC (BEAKER) (test 33.3 GM/DL 32.3-36.5 jucr=526) RED CELL DISTRIBUTION WIDTH (BEAKER) (test 14.6 % 11.6-14.4 eqjf=066) PLATELET COUNT (BEAKER) (test hjzq=434) 298 K/CU MM 150-450 MEAN PLATELET VOLUME (BEAKER) (test jzzy=665) 10.1 fL 9.4-12.4 NUCLEATED RED BLOOD CELLS (BEAKER) (test 0 /100 WBC 0-0 hfap=535) POCT-GLUCOSE [id number] 00:14:00 Test Item Value Reference Range Comments POC-GLUCOSE METER (BEAKER) 199 mg/dL 70-110 TESTED AT [address] (test iwnm=6320) [place] [address] POCT-GLUCOSE [id number] 17:13:00 Test Item Value Reference Range Comments POC-GLUCOSE METER (BEAKER) 221 mg/dL 70-110 TESTED AT [address] (test fmqg=0968) [place] [address] POCT-GLUCOSE [id number] 12:47:00 Test Item Value Reference Range Comments POC-GLUCOSE METER (BEAKER) 184 mg/dL 70-110 TESTED AT [address] (test cjjq=1676) [place] [address] BASIC METABOLIC [id number] 06:22:00 Test Item Value Reference Range Comments SODIUM (BEAKER) (test 137 meq/L 136-145 esuq=491) POTASSIUM (BEAKER) (test 4.3 meq/L 3.5-5.1 xfad=329) CHLORIDE (BEAKER) (test 103 meq/L 98-107 rafg=704) CO2 (BEAKER) (test 25 meq/L 22-29 uuqg=424) BLOOD UREA NITROGEN 22 mg/dL 7-21 (BEAKER) (test fbly=075) CREATININE (BEAKER) (test 0.82 mg/dL 0.57-1.25 vrto=451) GLUCOSE RANDOM (BEAKER) 168 mg/dL 70-105 (test clgb=870) CALCIUM (BEAKER) (test 9.3 mg/dL 8.4-10.2 eegm=772) EGFR (BEAKER) (test 93 mL/min/1.73 sq m ESTIMATED GFR IS NOT ahrq=7143) ACCURATE CREATININE CLEARANCE IN PREDICTING GLOMERULAR FILTRATION RATE. ESTIMATED GFR IS NOT APPLICABLE FOR DIALYSIS PATIENTS. POCT-GLUCOSE [id number] 06:07:00 Test Item Value Reference Range Comments POC-GLUCOSE METER (BEAKER) 183 mg/dL 70-110 TESTED AT [address] (test exha=4225) [place] [id number] CBC (HEMOGRAM ONLY)2018-11-11 05:13:00 Test Item Value Reference Range Comments WHITE BLOOD CELL COUNT (BEAKER) (test dfpt=024) 15.3 K/ L 3.5-10.5 RED BLOOD CELL COUNT (BEAKER) (test onln=758) 4.19 M/ L 4.63-6.08 HEMOGLOBIN (BEAKER) (test ycts=829) 12.0 GM/DL 13.7-17.5 HEMATOCRIT (BEAKER) (test ugbk=558) 36.2 % 40.1-51.0 MEAN CORPUSCULAR VOLUME (BEAKER) (test aqon=808) 86.4 fL 79.0-92.2 MEAN CORPUSCULAR HEMOGLOBIN (BEAKER) (test 28.6 pg 25.7-32.2 qhub=744) MEAN CORPUSCULAR HEMOGLOBIN CONC (BEAKER) (test 33.1 GM/DL 32.3-36.5 wykb=988) RED CELL DISTRIBUTION WIDTH (BEAKER) (test 14.7 % 11.6-14.4 azsb=834) PLATELET COUNT (BEAKER) (test tqgq=793) 287 K/CU MM 150-450 MEAN PLATELET VOLUME (BEAKER) (test bgun=583) 10.5 fL 9.4-12.4 NUCLEATED RED BLOOD CELLS (BEAKER) (test 0 /100 WBC 0-0 drmw=599) POCT-GLUCOSE [id number] 00:14:00 Test Item Value Reference Range Comments POC-GLUCOSE METER (BEAKER) 176 mg/dL 70-110 TESTED AT [address] (test hvth=3535) [place] [id number] POCT-GLUCOSE [id number] 17:43:00 Test Item Value Reference Range Comments POC-GLUCOSE METER (BEAKER) 195 mg/dL 70-110 TESTED AT [address] (test wpfb=2690) [place] [id number] POCT-GLUCOSE [id number] 12:08:00 Test Item Value Reference Range Comments POC-GLUCOSE METER (BEAKER) 170 mg/dL 70-110 TESTED AT [address] (test vezo=5994) [facility] [address] BASIC METABOLIC [id number] 07:13:00 Test Item Value Reference Range Comments SODIUM (BEAKER) (test 135 meq/L 136-145 wgjo=179) POTASSIUM (BEAKER) (test 4.0 meq/L 3.5-5.1 flaq=576) CHLORIDE (BEAKER) (test 105 meq/L 98-107 sija=213) CO2 (BEAKER) (test 22 meq/L 22-29 pruh=050) BLOOD UREA NITROGEN 18 mg/dL 7-21 (BEAKER) (test irwd=629) CREATININE (BEAKER) (test 0.82 mg/dL 0.57-1.25 udbm=751) GLUCOSE RANDOM (BEAKER) 163 mg/dL 70-105 (test xauu=034) CALCIUM (BEAKER) (test 9.4 mg/dL 8.4-10.2 dvjd=392) EGFR (BEAKER) (test 93 mL/min/1.73 sq m ESTIMATED GFR IS NOT ymkp=6872) ACCURATE CREATININE CLEARANCE IN PREDICTING GLOMERULAR FILTRATION RATE. ESTIMATED GFR IS NOT APPLICABLE FOR DIALYSIS PATIENTS. POCT-GLUCOSE [id number] 06:08:00 Test Item Value Reference Range Comments POC-GLUCOSE METER (BEAKER) 178 mg/dL 70-110 TESTED AT [address] (test hrjv=9762) [facility] [address] CBC (HEMOGRAM ONLY)2018 05:55:00 Test Item Value Reference Range Comments WHITE BLOOD CELL COUNT (BEAKER) (test wuym=570) 15.6 K/ L 3.5-10.5 RED BLOOD CELL COUNT (BEAKER) (test xssi=158) 4.18 M/ L 4.63-6.08 HEMOGLOBIN (BEAKER) (test qxpe=401) 11.9 GM/DL 13.7-17.5 HEMATOCRIT (BEAKER) (test yvtb=605) 35.8 % 40.1-51.0 MEAN CORPUSCULAR VOLUME (BEAKER) (test kxcq=033) 85.6 fL 79.0-92.2 MEAN CORPUSCULAR HEMOGLOBIN (BEAKER) (test 28.5 pg 25.7-32.2 mqva=824) MEAN CORPUSCULAR HEMOGLOBIN CONC (BEAKER) (test 33.2 GM/DL 32.3-36.5 vsok=980) RED CELL DISTRIBUTION WIDTH (BEAKER) (test 14.6 % 11.6-14.4 jlfs=179) PLATELET COUNT (BEAKER) (test tien=615) 292 K/CU MM 150-450 MEAN PLATELET VOLUME (BEAKER) (test duxh=994) 10.5 fL 9.4-12.4 NUCLEATED RED BLOOD CELLS (BEAKER) (test 0 /100 WBC 0-0 pnwv=395) POCT-GLUCOSE [id number] 01:11:00 Test Item Value Reference Range Comments POC-GLUCOSE METER (BEAKER) 160 mg/dL 70-110 TESTED AT [place] [id number] [facility] (test xzev=7633) [place] [address] POCT-GLUCOSE [id number] 12:18:00 Test Item Value Reference Range Comments POC-GLUCOSE METER (BEAKER) 147 mg/dL 70-110 TESTED AT [address] (test xoiw=9978) [place] [address] POCT-GLUCOSE [id number] 08:20:00 Test Item Value Reference Range Comments POC-GLUCOSE METER (BEAKER) 155 mg/dL 70-110 TESTED AT [address] (test fuxo=1612) [facility] [address] BASIC METABOLIC [id number] 06:07:00 Test Item Value Reference Range Comments SODIUM (BEAKER) (test 135 meq/L 136-145 ifef=160) POTASSIUM (BEAKER) (test 4.3 meq/L 3.5-5.1 zamz=175) CHLORIDE (BEAKER) (test 106 meq/L 98-107 gojm=993) CO2 (BEAKER) (test 20 meq/L 22-29 krmf=223) BLOOD UREA NITROGEN 18 mg/dL 7-21 (BEAKER) (test unuc=463) CREATININE (BEAKER) (test 0.82 mg/dL 0.57-1.25 hhve=743) GLUCOSE RANDOM (BEAKER) 161 mg/dL 70-105 (test eiig=707) CALCIUM (BEAKER) (test 9.1 mg/dL 8.4-10.2 gqye=240) EGFR (BEAKER) (test 93 mL/min/1.73 sq m ESTIMATED GFR IS NOT kspo=8877) ACCURATE CREATININE CLEARANCE IN PREDICTING GLOMERULAR FILTRATION RATE. ESTIMATED GFR IS NOT APPLICABLE FOR DIALYSIS PATIENTS. CBC (HEMOGRAM ONLY)2018-11-09 05:28:00 Test Item Value Reference Range Comments WHITE BLOOD CELL COUNT (BEAKER) (test cwkv=310) 12.9 K/ L 3.5-10.5 RED BLOOD CELL COUNT (BEAKER) (test afmo=820) 3.99 M/ L 4.63-6.08 HEMOGLOBIN (BEAKER) (test cxvj=715) 11.5 GM/DL 13.7-17.5 HEMATOCRIT (BEAKER) (test gcig=616) 33.8 % 40.1-51.0 MEAN CORPUSCULAR VOLUME (BEAKER) (test vtps=813) 84.7 fL 79.0-92.2 MEAN CORPUSCULAR HEMOGLOBIN (BEAKER) (test 28.8 pg 25.7-32.2 tnxl=084) MEAN CORPUSCULAR HEMOGLOBIN CONC (BEAKER) (test 34.0 GM/DL 32.3-36.5 kfbh=522) RED CELL DISTRIBUTION WIDTH (BEAKER) (test 14.3 % 11.6-14.4 dimd=882) PLATELET COUNT (BEAKER) (test sjyn=917) 252 K/CU MM 150-450 MEAN PLATELET VOLUME (BEAKER) (test lfjr=372) 10.0 fL 9.4-12.4 NUCLEATED RED BLOOD CELLS (BEAKER) (test 0 /100 WBC 0-0 zgok=112) POCT-GLUCOSE [id number] 23:57:00 Test Item Value Reference Range Comments POC-GLUCOSE METER (BEAKER) 140 mg/dL 70-110 TESTED AT [address] (test tuxw=4010) [place] [address] POCT-GLUCOSE [id number] 17:30:00 Test Item Value Reference Range Comments POC-GLUCOSE METER (BEAKER) 127 mg/dL 70-110 TESTED AT [address] (test lzvb=1529) [place] [address] POCT-GLUCOSE [id number] 11:54:00 Test Item Value Reference Range Comments POC-GLUCOSE METER (BEAKER) 133 mg/dL 70-110 TESTED AT [address] (test bdvr=2471) [place] [address] POCT-GLUCOSE [id number] 06:37:00 Test Item Value Reference Range Comments POC-GLUCOSE METER (BEAKER) 110 mg/dL 70-110 TESTED AT [address] (test cboa=8888) [facility] [address] BASIC METABOLIC [id number] 06:28:00 Test Item Value Reference Range Comments SODIUM (BEAKER) (test 136 meq/L 136-145 bbrn=811) POTASSIUM (BEAKER) (test 4.4 meq/L 3.5-5.1 xtip=968) CHLORIDE (BEAKER) (test 110 meq/L 98-107 edzo=668) CO2 (BEAKER) (test 20 meq/L 22-29 ivli=659) BLOOD UREA NITROGEN 15 mg/dL 7-21 (BEAKER) (test avyg=381) CREATININE (BEAKER) (test 0.74 mg/dL 0.57-1.25 npko=356) GLUCOSE RANDOM (BEAKER) 112 mg/dL 70-105 (test kxhy=286) CALCIUM (BEAKER) (test 8.5 mg/dL 8.4-10.2 otrb=850) EGFR (BEAKER) (test 105 mL/min/1.73 sq m ESTIMATED GFR IS NOT sgxz=2817) ACCURATE CREATININE CLEARANCE IN PREDICTING GLOMERULAR FILTRATION RATE. ESTIMATED GFR IS NOT APPLICABLE FOR DIALYSIS PATIENTS. CBC (HEMOGRAM ONLY)2018-11-08 05:44:00 Test Item Value Reference Range Comments WHITE BLOOD CELL COUNT (BEAKER) (test nxdq=507) 11.0 K/ L 3.5-10.5 RED BLOOD CELL COUNT (BEAKER) (test zhxw=573) 3.99 M/ L 4.63-6.08 HEMOGLOBIN (BEAKER) (test kpwr=289) 11.5 GM/DL 13.7-17.5 HEMATOCRIT (BEAKER) (test xsbf=993) 34.2 % 40.1-51.0 MEAN CORPUSCULAR VOLUME (BEAKER) (test gvou=037) 85.7 fL 79.0-92.2 MEAN CORPUSCULAR HEMOGLOBIN (BEAKER) (test 28.8 pg 25.7-32.2 lfvo=684) MEAN CORPUSCULAR HEMOGLOBIN CONC (BEAKER) (test 33.6 GM/DL 32.3-36.5 qxce=987) RED CELL DISTRIBUTION WIDTH (BEAKER) (test 14.6 % 11.6-14.4 caoj=983) PLATELET COUNT (BEAKER) (test jarx=543) 256 K/CU MM 150-450 MEAN PLATELET VOLUME (BEAKER) (test kxjy=011) 10.4 fL 9.4-12.4 NUCLEATED RED BLOOD CELLS (BEAKER) (test 0 /100 WBC 0-0 fhdv=358) POCT-GLUCOSE [id number] 01:21:00 Test Item Value Reference Range Comments POC-GLUCOSE METER (BEAKER) 131 mg/dL 70-110 TESTED AT [address] (test aahd=4919) [place] [address] POCT-GLUCOSE [id number] 18:16:00 Test Item Value Reference Range Comments POC-GLUCOSE METER (BEAKER) 159 mg/dL 70-110 TESTED AT [address] (test txlx=6458) [place] [address] [id number] 15:58:00 Test Item Value Reference Range Comments ACTIVATED CLOTTING TIME 252 sec TESTED AT [address] (BEAKER) (test lnbp=493) [place] [address] POCT-GLUCOSE [id number] 13:49:00 Test Item Value Reference Range Comments POC-GLUCOSE METER (BEAKER) 155 mg/dL 70-110 TESTED AT [address] (test djjs=2938) [place] [address] POCT-P2Y12 PLATELET [id number] 12:44:00 Test Item Value Reference Range Comments POC-P2Y12 PLATELET AGG (BEAKER) (test okrn=8644) 83 PRU RANGE INFORMATION: PRU reference range is 194-418. Post Drug Results: Lower PRU levels are associated with expected antiplatelet effect. Values may be below the stated reference range above. The post-drug PRU values reported in the [employer] P2Y12 package insert are [id number].CT, BRAIN, WITHOUT [id number] 09:26:00FINAL REPORT CT, BRAIN, WITHOUT CONTRAST CLINICAL [...] Navarro Verified Date/Time: 11/07/2018 09:26:55 Reading Location: [address] Neuro Reading Room POCT-GLUCOSE [id number] 06:41:00 Test Item Value Reference Range Comments POC-GLUCOSE METER (BEAKER) 186 mg/dL 70-110 TESTED AT [address] (test ymzt=7066) [facility] [address] POCT-P2Y12 PLATELET [id number] 06:16:00 Test Item Value Reference Range Comments POC-P2Y12 PLATELET AGG (BEAKER) (test wivv=5869) 247 PRU RANGE INFORMATION: PRU reference range is 194-418. Post Drug Results: Lower PRU levels are associated with expected antiplatelet effect. Values may be below the stated reference range above. The post-drug PRU values reported in the [employer] P2Y12 package insert are [id number].BASIC METABOLIC [id number] 06:01: 00 Test Item Value Reference Range Comments SODIUM (BEAKER) (test 134 meq/L 136-145 frsn=753) POTASSIUM (BEAKER) (test 4.3 meq/L 3.5-5.1 rnqj=690) CHLORIDE (BEAKER) (test 108 meq/L 98-107 pvui=864) CO2 (BEAKER) (test 19 meq/L 22-29 dwjv=654) BLOOD UREA NITROGEN 15 mg/dL 7-21 (BEAKER) (test qnau=610) CREATININE (BEAKER) (test 0.82 mg/dL 0.57-1.25 izeu=128) GLUCOSE RANDOM (BEAKER) 200 mg/dL 70-105 (test edmp=036) CALCIUM (BEAKER) (test 9.1 mg/dL 8.4-10.2 cajb=712) EGFR (BEAKER) (test 93 mL/min/1.73 sq m ESTIMATED GFR IS NOT gyaq=9637) ACCURATE CREATININE CLEARANCE IN PREDICTING GLOMERULAR FILTRATION RATE. ESTIMATED GFR IS NOT APPLICABLE FOR DIALYSIS PATIENTS. CBC (HEMOGRAM ONLY)2018-11-07 05:38:00 Test Item Value Reference Range Comments WHITE BLOOD CELL COUNT (BEAKER) (test gasx=158) 9.3 K/ L 3.5-10.5 RED BLOOD CELL COUNT (BEAKER) (test plac=672) 4.28 M/ L 4.63-6.08 HEMOGLOBIN (BEAKER) (test ydcf=307) 12.3 GM/DL 13.7-17.5 HEMATOCRIT (BEAKER) (test wkud=022) 37.2 % 40.1-51.0 MEAN CORPUSCULAR VOLUME (BEAKER) (test mgae=707) 86.9 fL 79.0-92.2 MEAN CORPUSCULAR HEMOGLOBIN (BEAKER) (test 28.7 pg 25.7-32.2 mrxx=981) MEAN CORPUSCULAR HEMOGLOBIN CONC (BEAKER) (test 33.1 GM/DL 32.3-36.5 zrcp=192) RED CELL DISTRIBUTION WIDTH (BEAKER) (test 14.6 % 11.6-14.4 illq=420) PLATELET COUNT (BEAKER) (test ozzr=025) 218 K/CU MM 150-450 MEAN PLATELET VOLUME (BEAKER) (test cwxs=215) 10.5 fL 9.4-12.4 NUCLEATED RED BLOOD CELLS (BEAKER) (test 0 /100 WBC 0-0 zltj=842) POCT-GLUCOSE [id number] 23:34:00 Test Item Value Reference Range Comments POC-GLUCOSE METER (BEAKER) 173 mg/dL 70-110 TESTED AT [facility] [address] [facility] (test kehu=0209) [facility] [address] RAD, ABDOMEN/KUB, [id number] 19:42:00Reason for exam:->verify corpak placementShould this be [...] MDReport Verified Date/Time: 11/06/2018 19:42:40 Reading Location: [address] Reading Room POCT-GLUCOSE [id number] 18:59:00 Test Item Value Reference Range Comments POC-GLUCOSE METER (BEAKER) 143 mg/dL 70-110 TESTED AT [address] (test kmld=5012) [place] [address] POCT-GLUCOSE [id number] 14:46:00 Test Item Value Reference Range Comments POC-GLUCOSE METER (BEAKER) 169 mg/dL 70-110 TESTED AT [address] (test iwnb=3178) [place] [address] FL, ESOPH, SWALLOW FUNCTION, WITH CINE OR [id number] 14:10:00Reason for exam:->dysphagiaFINAL REPORT Modified barium swallow [...] MDReport Verified Date/Time: 11/06/2018 14:10:54 Reading Location: [facility] [id number] [facility] Reading Room [facility] METABOLIC [id number] 06:28:00 Test Item Value Reference Range Comments SODIUM (BEAKER) (test 136 meq/L 136-145 byku=458) POTASSIUM (BEAKER) (test 4.1 meq/L 3.5-5.1 ilfi=194) CHLORIDE (BEAKER) (test 106 meq/L 98-107 mznr=283) CO2 (BEAKER) (test 23 meq/L 22-29 cbln=864) BLOOD UREA NITROGEN 17 mg/dL 7-21 (BEAKER) (test csri=636) CREATININE (BEAKER) (test 0.77 mg/dL 0.57-1.25 ggcp=465) GLUCOSE RANDOM (BEAKER) 215 mg/dL 70-105 (test dwru=828) CALCIUM (BEAKER) (test 8.9 mg/dL 8.4-10.2 gepn=199) EGFR (BEAKER) (test 100 mL/min/1.73 sq m ESTIMATED GFR IS NOT dqxk=7020) ACCURATE CREATININE CLEARANCE IN PREDICTING GLOMERULAR FILTRATION RATE. ESTIMATED GFR IS NOT APPLICABLE FOR DIALYSIS PATIENTS. POCT-GLUCOSE [id number] 06:19:00 Test Item Value Reference Range Comments POC-GLUCOSE METER (BEAKER) 216 mg/dL 70-110 TESTED AT [facility] [address] [facility] (test rera=4566) [facility] [address] CBC (HEMOGRAM ONLY)2018-11-06 05:54:00 Test Item Value Reference Range Comments WHITE BLOOD CELL COUNT (BEAKER) (test bqne=439) 8.1 K/ L 3.5-10.5 RED BLOOD CELL COUNT (BEAKER) (test amgh=568) 4.33 M/ L 4.63-6.08 HEMOGLOBIN (BEAKER) (test nhxq=987) 12.5 GM/DL 13.7-17.5 HEMATOCRIT (BEAKER) (test rsdi=752) 37.2 % 40.1-51.0 MEAN CORPUSCULAR VOLUME (BEAKER) (test uteh=430) 85.9 fL 79.0-92.2 MEAN CORPUSCULAR HEMOGLOBIN (BEAKER) (test 28.9 pg 25.7-32.2 qyxw=440) MEAN CORPUSCULAR HEMOGLOBIN CONC (BEAKER) (test 33.6 GM/DL 32.3-36.5 xsjg=322) RED CELL DISTRIBUTION WIDTH (BEAKER) (test 14.6 % 11.6-14.4 tbnh=029) PLATELET COUNT (BEAKER) (test piqz=537) 215 K/CU MM 150-450 MEAN PLATELET VOLUME (BEAKER) (test zyqi=004) 10.7 fL 9.4-12.4 NUCLEATED RED BLOOD CELLS (BEAKER) (test 0 /100 WBC 0-0 lsnz=920) POCT-GLUCOSE [id number] 01:34:00 Test Item Value Reference Range Comments POC-GLUCOSE METER (BEAKER) 175 mg/dL 70-110 TESTED AT [address] (test uzfm=2091) [place] [id number] POCT-GLUCOSE [id number] 19:12:00 Test Item Value Reference Range Comments POC-GLUCOSE METER (BEAKER) 150 mg/dL 70-110 TESTED AT [address] (test msqb=9863) [place] [id number] POCT-GLUCOSE [id number] 11:28:00 Test Item Value Reference Range Comments POC-GLUCOSE METER (BEAKER) 169 mg/dL 70-110 TESTED AT [address] (test bcbg=6933) [place] [id number] BASIC METABOLIC [id number] 07:23:00 Test Item Value Reference Range Comments SODIUM (BEAKER) (test 140 meq/L 136-145 onjr=600) POTASSIUM (BEAKER) (test 4.1 meq/L 3.5-5.1 xbtv=356) CHLORIDE (BEAKER) (test 105 meq/L 98-107 nxbs=786) CO2 (BEAKER) (test 27 meq/L 22-29 rfeq=806) BLOOD UREA NITROGEN 15 mg/dL 7-21 (BEAKER) (test hupq=073) CREATININE (BEAKER) (test 0.78 mg/dL 0.57-1.25 pgqi=422) GLUCOSE RANDOM (BEAKER) 156 mg/dL 70-105 (test cocp=031) CALCIUM (BEAKER) (test 9.3 mg/dL 8.4-10.2 hutg=657) EGFR (BEAKER) (test 99 mL/min/1.73 sq m ESTIMATED GFR IS NOT qrla=0353) ACCURATE CREATININE CLEARANCE IN PREDICTING GLOMERULAR FILTRATION RATE. ESTIMATED GFR IS NOT APPLICABLE FOR DIALYSIS PATIENTS. POCT-GLUCOSE [id number] 06:37:00 Test Item Value Reference Range Comments POC-GLUCOSE METER (BEAKER) 158 mg/dL 70-110 TESTED AT [address] (test pemb=3001) [place] [id number] 05:42:00 Test Item Value Reference Range Comments PROTIME (BEAKER) (test coop=748) 12.9 seconds 11.7-14.7 INR (BEAKER) (test hwsp=638) 1.0 <=5.9 PARTIAL THROMBOPLASTIN TIME (BEAKER) (test 35.4 seconds 22.5-36.0 trlf=575) RECOMMENDED COUMADIN/WARFARIN INR THERAPY RANGESSTANDARD DOSE: 2.0 - 3.0 Includes: PROPHYLAXIS forvenous thrombosis, systemic embolization; TREATMENT for venous thrombosis and/or pulmonary embolus.HIGH RISK: Target INR is 2.5-3.5 for patients with mechanical heart valves.CBC (HEMOGRAM ONLY)2018-11-05 05:29:00 Test Item Value Reference Range Comments WHITE BLOOD CELL COUNT (BEAKER) (test qwax=046) 13.2 K/ L 3.5-10.5 RED BLOOD CELL COUNT (BEAKER) (test psry=238) 4.77 M/ L 4.63-6.08 HEMOGLOBIN (BEAKER) (test texa=981) 13.6 GM/DL 13.7-17.5 HEMATOCRIT (BEAKER) (test ujes=493) 41.6 % 40.1-51.0 MEAN CORPUSCULAR VOLUME (BEAKER) (test lkpu=465) 87.2 fL 79.0-92.2 MEAN CORPUSCULAR HEMOGLOBIN (BEAKER) (test 28.5 pg 25.7-32.2 lknq=820) MEAN CORPUSCULAR HEMOGLOBIN CONC (BEAKER) (test 32.7 GM/DL 32.3-36.5 vuzx=881) RED CELL DISTRIBUTION WIDTH (BEAKER) (test 14.8 % 11.6-14.4 qbcv=107) PLATELET COUNT (BEAKER) (test isbb=299) 218 K/CU MM 150-450 MEAN PLATELET VOLUME (BEAKER) (test hlbl=967) 11.6 fL 9.4-12.4 NUCLEATED RED BLOOD CELLS (BEAKER) (test 0 /100 WBC 0-0 hdsq=199) POCT-GLUCOSE [id number] 23:19:00 Test Item Value Reference Range Comments POC-GLUCOSE METER (BEAKER) 231 mg/dL 70-110 TESTED AT [facility] [address] (test xvax=7345) [facility] [address] POCT-GLUCOSE [id number] 18:05:00 Test Item Value Reference Range Comments POC-GLUCOSE METER (BEAKER) 245 mg/dL 70-110 TESTED AT [facility] [address] [facility] (test jgst=5651) [facility] [address] POCT-GLUCOSE [id number] 12:49:00 Test Item Value Reference Range Comments POC-GLUCOSE METER (BEAKER) 197 mg/dL 70-110 TESTED AT [place] [id number] [facility] (test zzjs=6722) [facility] [address] BASIC METABOLIC [id number] 09:31:00 Test Item Value Reference Range Comments SODIUM (BEAKER) (test 137 meq/L 136-145 bhxd=332) POTASSIUM (BEAKER) (test 4.2 meq/L 3.5-5.1 qacs=133) CHLORIDE (BEAKER) (test 104 meq/L 98-107 kdmm=747) CO2 (BEAKER) (test 26 meq/L 22-29 hyfa=813) BLOOD UREA NITROGEN 20 mg/dL 7-21 (BEAKER) (test apbk=049) CREATININE (BEAKER) (test 0.81 mg/dL 0.57-1.25 nrqn=780) GLUCOSE RANDOM (BEAKER) 199 mg/dL 70-105 (test nfjb=297) CALCIUM (BEAKER) (test 9.0 mg/dL 8.4-10.2 hmhk=543) EGFR (BEAKER) (test 94 mL/min/1.73 sq m ESTIMATED GFR IS NOT rebc=0556) ACCURATE CREATININE CLEARANCE IN PREDICTING GLOMERULAR FILTRATION RATE. ESTIMATED GFR IS NOT APPLICABLE FOR DIALYSIS PATIENTS. CBC (HEMOGRAM ONLY)2018-11-04 06:48:00 Test Item Value Reference Range Comments WHITE BLOOD CELL COUNT (BEAKER) (test uorw=509) 15.7 K/ L 3.5-10.5 RED BLOOD CELL COUNT (BEAKER) (test lhag=632) 4.69 M/ L 4.63-6.08 HEMOGLOBIN (BEAKER) (test ivds=669) 13.4 GM/DL 13.7-17.5 HEMATOCRIT (BEAKER) (test enon=762) 41.3 % 40.1-51.0 MEAN CORPUSCULAR VOLUME (BEAKER) (test nrej=208) 88.1 fL 79.0-92.2 MEAN CORPUSCULAR HEMOGLOBIN (BEAKER) (test 28.6 pg 25.7-32.2 ubde=131) MEAN CORPUSCULAR HEMOGLOBIN CONC (BEAKER) (test 32.4 GM/DL 32.3-36.5 rhor=129) RED CELL DISTRIBUTION WIDTH (BEAKER) (test 15.1 % 11.6-14.4 qhza=222) PLATELET COUNT (BEAKER) (test fkcr=256) 180 K/CU MM 150-450 MEAN PLATELET VOLUME (BEAKER) (test wovb=197) 11.7 fL 9.4-12.4 NUCLEATED RED BLOOD CELLS (BEAKER) (test 0 /100 WBC 0-0 jand=801) POCT-GLUCOSE [id number] 23:44:00 Test Item Value Reference Range Comments POC-GLUCOSE METER (BEAKER) 187 mg/dL 70-110 TESTED AT [address] (test fwrt=4877) [facility] [address] POCT-GLUCOSE [id number] 17:30:00 Test Item Value Reference Range Comments POC-GLUCOSE METER (BEAKER) 231 mg/dL 70-110 TESTED AT [address] (test umsy=6860) [facility] [address] POCT-GLUCOSE [id number] 12:40:00 Test Item Value Reference Range Comments POC-GLUCOSE METER (BEAKER) 205 mg/dL 70-110 TESTED AT [address] (test ghki=9084) [facility] [address] BASIC METABOLIC [id number] 08:48:00 Test Item Value Reference Range Comments SODIUM (BEAKER) (test 138 meq/L 136-145 pgkr=427) POTASSIUM (BEAKER) (test 3.9 meq/L 3.5-5.1 iiiu=869) CHLORIDE (BEAKER) (test 107 meq/L 98-107 ewhe=760) CO2 (BEAKER) (test 24 meq/L 22-29 yrnb=002) BLOOD UREA NITROGEN 19 mg/dL 7-21 (BEAKER) (test jmvn=676) CREATININE (BEAKER) (test 0.80 mg/dL 0.57-1.25 wizk=084) GLUCOSE RANDOM (BEAKER) 149 mg/dL 70-105 (test whvc=267) CALCIUM (BEAKER) (test 8.8 mg/dL 8.4-10.2 enaz=706) EGFR (BEAKER) (test 96 mL/min/1.73 sq m ESTIMATED GFR IS NOT kfbh=5653) ACCURATE CREATININE CLEARANCE IN PREDICTING GLOMERULAR FILTRATION RATE. ESTIMATED GFR IS NOT APPLICABLE FOR DIALYSIS PATIENTS. POCT-GLUCOSE [id number] 06:30:00 Test Item Value Reference Range Comments POC-GLUCOSE METER (BEAKER) 153 mg/dL 70-110 TESTED AT [address] (test tssh=0639) [facility] [address] CBC (HEMOGRAM ONLY)2018-11-03 05:19:00 Test Item Value Reference Range Comments WHITE BLOOD CELL COUNT (BEAKER) (test brkb=088) 12.3 K/ L 3.5-10.5 RED BLOOD CELL COUNT (BEAKER) (test pacv=256) 4.24 M/ L 4.63-6.08 HEMOGLOBIN (BEAKER) (test wqlo=398) 12.1 GM/DL 13.7-17.5 HEMATOCRIT (BEAKER) (test aegt=551) 37.0 % 40.1-51.0 MEAN CORPUSCULAR VOLUME (BEAKER) (test qqcx=329) 87.3 fL 79.0-92.2 MEAN CORPUSCULAR HEMOGLOBIN (BEAKER) (test 28.5 pg 25.7-32.2 klhe=041) MEAN CORPUSCULAR HEMOGLOBIN CONC (BEAKER) (test 32.7 GM/DL 32.3-36.5 nssb=088) RED CELL DISTRIBUTION WIDTH (BEAKER) (test 14.8 % 11.6-14.4 myxd=500) PLATELET COUNT (BEAKER) (test ikrf=587) 175 K/CU MM 150-450 MEAN PLATELET VOLUME (BEAKER) (test ouys=725) 11.3 fL 9.4-12.4 NUCLEATED RED BLOOD CELLS (BEAKER) (test 0 /100 WBC 0-0 ujww=945) POCT-GLUCOSE [id number] 23:20:00 Test Item Value Reference Range Comments POC-GLUCOSE METER (BEAKER) 133 mg/dL 70-110 TESTED AT [address] (test iyma=8279) [place] [id number] POCT-GLUCOSE [id number] 17:27:00 Test Item Value Reference Range Comments POC-GLUCOSE METER (BEAKER) 107 mg/dL 70-110 TESTED AT [facility] [address] [facility] (test xmta=9841) [facility] [address] POCT-GLUCOSE [id number] 09:07:00 Test Item Value Reference Range Comments POC-GLUCOSE METER (BEAKER) 101 mg/dL 70-110 TESTED AT [facility] [address] [facility] (test mhig=4535) [facility] [address] TROPONIN [id number] 07:02:00 Test Item Value Reference Range Comments TROPONIN I (BEAKER) (test lprt=150) 0.04 ng/mL 0.00-0.03 Troponin I (TnI) levels [...] acute neurological disease, and persistent tachyarrhythmia.BASIC METABOLIC [id number] 06:55:00 Test Item Value Reference Range Comments SODIUM (BEAKER) (test 142 meq/L 136-145 ikiz=194) POTASSIUM (BEAKER) (test 3.7 meq/L 3.5-5.1 grno=067) CHLORIDE (BEAKER) (test 110 meq/L 98-107 xmkr=297) CO2 (BEAKER) (test 23 meq/L 22-29 wmzt=614) BLOOD UREA NITROGEN 17 mg/dL 7-21 (BEAKER) (test xxhm=942) CREATININE (BEAKER) (test 0.77 mg/dL 0.57-1.25 yofv=817) GLUCOSE RANDOM (BEAKER) 114 mg/dL 70-105 (test anso=085) CALCIUM (BEAKER) (test 9.1 mg/dL 8.4-10.2 cahs=667) EGFR (BEAKER) (test 100 mL/min/1.73 sq m ESTIMATED GFR IS NOT hado=9211) ACCURATE CREATININE CLEARANCE IN PREDICTING GLOMERULAR FILTRATION RATE. ESTIMATED GFR IS NOT APPLICABLE FOR DIALYSIS PATIENTS. B-TYPE NATRIURETIC FACTOR (BNP)2018-11-02 06:46:00 Test Item Value Reference Range Comments B-TYPE NATRIURETIC PEPTIDE (BEAKER) (test 722 pg/mL 0-100 skdi=798) PROTHROMBIN [id number] 06:35:00 Test Item Value Reference Range Comments PROTIME (BEAKER) (test puks=656) 14.3 seconds 11.7-14.7 INR (BEAKER) (test mhsn=624) 1.1 <=5.9 RECOMMENDED COUMADIN/WARFARIN INR THERAPY RANGESSTANDARD DOSE: 2.0 - 3.0 Includes: PROPHYLAXIS forvenous thrombosis, systemic embolization; TREATMENT for venous thrombosis and/or pulmonary embolus.HIGH RISK: Target INR is 2.5-3.5 for patients with mechanical heart valves.CBC (HEMOGRAM ONLY)2018-11-02 06:30:00 Test Item Value Reference Range Comments WHITE BLOOD CELL COUNT (BEAKER) (test fmll=966) 11.4 K/ L 3.5-10.5 RED BLOOD CELL COUNT (BEAKER) (test mvbr=462) 4.29 M/ L 4.63-6.08 HEMOGLOBIN (BEAKER) (test utvd=383) 12.2 GM/DL 13.7-17.5 HEMATOCRIT (BEAKER) (test uckt=454) 37.9 % 40.1-51.0 MEAN CORPUSCULAR VOLUME (BEAKER) (test fqpo=731) 88.3 fL 79.0-92.2 MEAN CORPUSCULAR HEMOGLOBIN (BEAKER) (test 28.4 pg 25.7-32.2 svta=322) MEAN CORPUSCULAR HEMOGLOBIN CONC (BEAKER) (test 32.2 GM/DL 32.3-36.5 eiit=511) RED CELL DISTRIBUTION WIDTH (BEAKER) (test 15.2 % 11.6-14.4 hosh=152) PLATELET COUNT (BEAKER) (test qgbu=158) 161 K/CU MM 150-450 MEAN PLATELET VOLUME (BEAKER) (test qise=954) 11.4 fL 9.4-12.4 NUCLEATED RED BLOOD CELLS (BEAKER) (test 0 /100 WBC 0-0 asxq=836) POCT-GLUCOSE [id number] 05:55:00 Test Item Value Reference Range Comments POC-GLUCOSE METER (BEAKER) 114 mg/dL 70-110 TESTED AT [facility] [address] [facility] (test nequ=0172) [facility] [address] POCT-GLUCOSE [id number] 23:27:00 Test Item Value Reference Range Comments POC-GLUCOSE METER (BEAKER) 133 mg/dL 70-110 TESTED AT [address] (test jven=8400) [facility] [address] RAD, ABDOMEN/KUB, 1 VIEW [id number] 18:35:00Reason for exam:->To check NG TUbe positionFINAL REPORT INDICATION:Confirm feeding tube placement. TECHNIQUE: Abdomen radiograph one view. FINDINGS / IMPRESSION: There is a feeding tube that follows the course of the stomach with the tip projecting over the gastric antrum. Visualized bowel gas pattern is unremarkable. Osseous structures unremarkable. Signed: Bora Hawk MDReport Verified Date/Time: 11/01/2018 18:35:02 Reading Location: [address] Consult Reading Room POCT-GLUCOSE [id number] 17:52:00 Test Item Value Reference Range Comments POC-GLUCOSE METER (BEAKER) 134 mg/dL 70-110 TESTED AT [address] (test hmfi=2831) [place] [id number] POCT-GLUCOSE [id number] 15:42:00 Test Item Value Reference Range Comments POC-GLUCOSE METER (BEAKER) 135 mg/dL 70-110 TESTED AT [address] (test uxcq=1470) [facility] [address] [id number] 06:25:00 Test Item Value Reference Range Comments MAGNESIUM (BEAKER) (test orsv=738) 2.3 mg/dL 1.6-2.6 COMPREHENSIVE METABOLIC [id number] 06:25:00 Test Item Value Reference Range Comments TOTAL PROTEIN (BEAKER) 5.9 gm/dL 6.0-8.3 (test eevn=964) ALBUMIN (BEAKER) (test 3.3 g/dL 3.5-5.0 gart=3368) ALKALINE PHOSPHATASE 47 U/L 40-150 (BEAKER) (test qzcn=361) BILIRUBIN TOTAL (BEAKER) 0.9 mg/dL 0.2-1.2 (test ydfb=051) SODIUM (BEAKER) (test 143 meq/L 136-145 vdjv=835) POTASSIUM (BEAKER) (test 3.6 meq/L 3.5-5.1 cryc=664) CHLORIDE (BEAKER) (test 109 meq/L 98-107 gtxs=954) CO2 (BEAKER) (test 27 meq/L 22-29 yysp=963) BLOOD UREA NITROGEN 22 mg/dL 7-21 (BEAKER) (test adrt=866) CREATININE (BEAKER) (test 0.89 mg/dL 0.57-1.25 ddws=255) GLUCOSE RANDOM (BEAKER) 152 mg/dL 70-105 (test zxjn=871) CALCIUM (BEAKER) (test 8.9 mg/dL 8.4-10.2 fvvd=653) AST (SGOT) (BEAKER) (test 35 U/L 5-34 yean=155) ALT (SGPT) (BEAKER) (test 28 U/L 6-55 nean=118) EGFR (BEAKER) (test 85 mL/min/1.73 sq m ESTIMATED GFR IS NOT dsig=2801) ACCURATE CREATININE CLEARANCE IN PREDICTING GLOMERULAR FILTRATION RATE. ESTIMATED GFR IS NOT APPLICABLE FOR DIALYSIS PATIENTS. CBC W/PLT COUNT & AUTO [id number] 06:11:00 Test Item Value Reference Range Comments WHITE BLOOD CELL COUNT (BEAKER) (test rfse=105) 11.8 K/ L 3.5-10.5 RED BLOOD CELL COUNT (BEAKER) (test cdqc=622) 4.35 M/ L 4.63-6.08 HEMOGLOBIN (BEAKER) (test kngo=481) 12.2 GM/DL 13.7-17.5 HEMATOCRIT (BEAKER) (test atby=649) 38.4 % 40.1-51.0 MEAN CORPUSCULAR VOLUME (BEAKER) (test gtea=535) 88.3 fL 79.0-92.2 MEAN CORPUSCULAR HEMOGLOBIN (BEAKER) (test 28.0 pg 25.7-32.2 sigd=852) MEAN CORPUSCULAR HEMOGLOBIN CONC (BEAKER) (test 31.8 GM/DL 32.3-36.5 wted=393) RED CELL DISTRIBUTION WIDTH (BEAKER) (test 15.3 % 11.6-14.4 enms=846) PLATELET COUNT (BEAKER) (test qwgv=679) 165 K/CU MM 150-450 MEAN PLATELET VOLUME (BEAKER) (test gkbh=434) 11.1 fL 9.4-12.4 NUCLEATED RED BLOOD CELLS (BEAKER) (test 0 /100 WBC 0-0 uuoj=681) NEUTROPHILS RELATIVE PERCENT (BEAKER) (test 74 % yprn=870) LYMPHOCYTES RELATIVE PERCENT (BEAKER) (test 17 % yeps=628) MONOCYTES RELATIVE PERCENT (BEAKER) (test 7 % knjz=435) EOSINOPHILS RELATIVE PERCENT (BEAKER) (test 1 % zjes=082) BASOPHILS RELATIVE PERCENT (BEAKER) (test 0 % fhgo=814) NEUTROPHILS ABSOLUTE COUNT (BEAKER) (test 8.68 K/ L 1.78-5.38 fcnp=043) LYMPHOCYTES ABSOLUTE COUNT (BEAKER) (test 2.02 K/ L 1.32-3.57 ekwa=818) MONOCYTES ABSOLUTE COUNT (BEAKER) (test 0.87 K/ L 0.30-0.82 eudi=450) EOSINOPHILS ABSOLUTE COUNT (BEAKER) (test 0.15 K/ L 0.04-0.54 abrn=741) BASOPHILS ABSOLUTE COUNT (BEAKER) (test 0.03 K/ L 0.01-0.08 rtmw=678) IMMATURE GRANULOCYTES-RELATIVE PERCENT (BEAKER) 0 % 0-1 (test ohhv=6878) CT, BRAIN, WITHOUT [id number] 05:58:00FINAL REPORT EXAM: CT head without contrast. [...] MDReport Verified Date/Time: 11/01/2018 05:58:05 Reading Location: [address] Body Reading Room Electronically signed by: Eugenia GLEZ 11/01/2018 05:58 AMPOCT-GLUCOSE [id number] 23:14:00 Test Item Value Reference Range Comments POC-GLUCOSE METER (BEAKER) 165 mg/dL 70-110 TESTED AT [address] (test zmsm=6007) [facility] [address] CT, CTANGIO [id number] 18:44:00FINAL REPORT CT, CTANGIO BRAIN, CT, CAROTID, [...] artery is widely patent extracranially. Nonvascular findings: Nhdh-ms-jyfapknq degenerative changes are present in the cervical [...] MDReport Verified Date/Time: 10/31/2018 18:44:42 Reading Location: [facility] C0[facility] Neuro Reading Room CT, CAROTID, [id number] 18:44: 00FINAL REPORT CT, CTANGIO BRAIN, CT, [...] MDReport Verified Date/Time: 10/31/2018 18:44:42 Reading Location: [facility] C013 Neuro Reading Room [id number] 14:17:00 Test Item Value Reference Range Comments RPR SCREEN (BEAKER) (test plax=437) Nonreactive Nonreactive CBC W/PLT COUNT & AUTO [id number] 12:54:00 Test Item Value Reference Range Comments WHITE BLOOD CELL COUNT (BEAKER) (test beue=132) 19.3 K/ L 3.5-10.5 RED BLOOD CELL COUNT (BEAKER) (test ymoj=102) 4.94 M/ L 4.63-6.08 HEMOGLOBIN (BEAKER) (test hsmj=290) 14.2 GM/DL 13.7-17.5 HEMATOCRIT (BEAKER) (test pdjp=178) 42.3 % 40.1-51.0 MEAN CORPUSCULAR VOLUME (BEAKER) (test zdlq=332) 85.6 fL 79.0-92.2 MEAN CORPUSCULAR HEMOGLOBIN (BEAKER) (test 28.7 pg 25.7-32.2 pxhp=601) MEAN CORPUSCULAR HEMOGLOBIN CONC (BEAKER) (test 33.6 GM/DL 32.3-36.5 teif=472) RED CELL DISTRIBUTION WIDTH (BEAKER) (test 15.0 % 11.6-14.4 kgdf=196) PLATELET COUNT (BEAKER) (test ubxe=403) 197 K/CU MM 150-450 MEAN PLATELET VOLUME (BEAKER) (test uaho=252) 11.0 fL 9.4-12.4 NUCLEATED RED BLOOD CELLS (BEAKER) (test 0 /100 WBC 0-0 qbcs=583) (CELLAVISION MANUAL DIFF)2018-10-31 12:54:00 Test Item Value Reference Range Comments NEUTROPHILS - REL (CELLAVISION)(BEAKER) (test 77 % pqwf=3756) LYMPHOCYTES - REL (CELLAVISION)(BEAKER) (test 15 % pqic=0707) MONOCYTES - REL (CELLAVISION)(BEAKER) (test 4 % mjqj=2715) BANDS - REL (CELLAVISION)(BEAKER) (test 3 % 0-10 wsyu=1104) ATYPICAL LYMPHOCYTES - REL (CELLAVISION)(BEAKER) 1 % 0-0 (test ntvb=6285) NEUTROPHILS - ABS (CELLAVISION)(BEAKER) (test 14.86 K/ul 1.78-5.38 qgqm=7151) LYMPHOCYTES - ABS (CELLAVISION)(BEAKER) (test 2.90 K/ul 1.32-3.57 llon=8227) MONOCYTES - ABS (CELLAVISION)(BEAKER) (test 0.77 K/uL 0.30-0.82 oxai=9865) BANDS - ABS (CELLAVISION)(BEAKER) (test 0.58 K/uL 0.00-0.80 ysjm=2194) ATYPICAL LYMPHOCYTES - ABS (CELLAVISION)(BEAKER) 0.19 K/uL 0.00-0.00 (test fyiw=0072) TOTAL COUNTED (BEAKER) (test food=2123) 100 SMUDGE CELLS (BEAKER) (test iafc=9518) Present GIANT PLATELETS (BEAKER) (test hbdk=847) Present POLYCHROMATOPHILLIC RBCS(BEAKER) (test lyii=336) 1+ few ANISOCYTOSIS (BEAKER) (test smtq=915) 1+ few MICROCYTES (BEAKER) (test pdae=815) 1+ few ARTIFACT (CELLAVISION)(BEAKER) (test ginl=1975) Present PLATELET CONCENTRATION (CELLAVISION)(BEAKER) Adequate (test myis=2790) Received comment: User comments: Slide comments:HEMOGLOBIN [id number] 11:05: 00 Test Item Value Reference Range Comments HEMOGLOBIN A1C (BEAKER) (test fkvd=746) 8.4 % 4.3-6.1 VITAMIN [id number] 07:43:00 Test Item Value Reference Range Comments VITAMIN B12 (BEAKER) (test loky=474) 595 pg/mL 213-816 TROPONIN [id number] 07:21:00 Test Item Value Reference Range Comments TROPONIN I (BEAKER) (test utvq=138) 0.13 ng/mL 0.00-0.03 Troponin I (TnI) levels [...] acidosis, acute neurological disease, and persistent tachyarrhythmia.C-REACTIVE [id number] 07:16:00 Test Item Value Reference Range Comments C-REACTIVE PROTEIN (BEAKER) (test fgmn=920) 4.19 mg/dL 0.00-0.50 TSH/FREE T4 IF [id number] 06:15:00 Test Item Value Reference Range Comments THYROID STIMULATING HORMONE (BEAKER) (test 2.46 uIU/mL 0.35-4.94 oasp=350) [id number] 05:54:00 Test Item Value Reference Range Comments PROTIME (BEAKER) (test weja=938) 14.3 seconds 11.7-14.7 INR (BEAKER) (test syfj=134) 1.1 <=5.9 PARTIAL THROMBOPLASTIN TIME (BEAKER) (test 29.4 seconds 22.5-36.0 hlyq=182) RECOMMENDED COUMADIN/WARFARIN INR THERAPY RANGESSTANDARD DOSE: 2.0 - 3.0 Includes: PROPHYLAXIS forvenous thrombosis, systemic embolization; TREATMENT for venous thrombosis and/or pulmonary embolus.HIGH RISK: Target INR is 2.5-3.5 for patients with mechanical heart valves.LIPID [id number] 05:51:00 Test Item Value Reference Range Comments TRIGLYCERIDES (BEAKER) (test ceot=291) 191 mg/dL CHOLESTEROL (BEAKER) (test aycs=708) 115 mg/dL HDL CHOLESTEROL (BEAKER) (test xfhx=664) 41 mg/dL LDL CHOLESTEROL CALCULATED (BEAKER) (test 36 mg/dL msoh=076) Triglyceride Reference Range: Low Risk <150 Borderline 150- 199 High Risk 200-499 Very High Risk >=500Cholesterol Reference Range: Low Risk <200 Borderline 200-239 High Risk > 240HDL Cholesterol Reference Range: Low Risk >=60 High Risk <40LDL Cholesterol Reference Range: Optimal <100 Near Optimal 100-129 Borderline 130-159 High 160-189 Very High >=190COMPREHENSIVE METABOLIC [id number] 05:51:00 Test Item Value Reference Range Comments TOTAL PROTEIN (BEAKER) 6.6 gm/dL 6.0-8.3 (test fwlp=342) ALBUMIN (BEAKER) (test 3.7 g/dL 3.5-5.0 tsyi=0706) ALKALINE PHOSPHATASE 51 U/L 40-150 (BEAKER) (test ysay=325) BILIRUBIN TOTAL (BEAKER) 1.5 mg/dL 0.2-1.2 (test lgvz=027) SODIUM (BEAKER) (test 141 meq/L 136-145 xnyn=460) POTASSIUM (BEAKER) (test 4.3 meq/L 3.5-5.1 eqxf=642) CHLORIDE (BEAKER) (test 108 meq/L 98-107 klkh=161) CO2 (BEAKER) (test 25 meq/L 22-29 qeld=783) BLOOD UREA NITROGEN 33 mg/dL 7-21 (BEAKER) (test kvje=626) CREATININE (BEAKER) (test 1.02 mg/dL 0.57-1.25 ckbk=143) GLUCOSE RANDOM (BEAKER) 160 mg/dL 70-105 (test xvgw=261) CALCIUM (BEAKER) (test 9.0 mg/dL 8.4-10.2 joab=622) AST (SGOT) (BEAKER) (test 54 U/L 5-34 yjpa=076) ALT (SGPT) (BEAKER) (test 32 U/L 6-55 tfpo=839) EGFR (BEAKER) (test 72 mL/min/1.73 sq m ESTIMATED GFR IS NOT twye=4932) ACCURATE CREATININE CLEARANCE IN PREDICTING GLOMERULAR FILTRATION RATE. ESTIMATED GFR IS NOT APPLICABLE FOR DIALYSIS PATIENTS.
[2019-08-28 17:55] LABS: Absolute Lymphocytes (CBC) 2.7 K/uL (0.7-4.9); Basophils % 0.4 % (0-1.3); Hematocrit 33.3 % (39.6-49.0); Lymphocytes % 27.1 % (15.3-44.8); MPV 8.6 fL (7.6-11.3); RBC Red Blood Cell Count 3.87 M/uL (4.33-5.43)
[2019-08-28 18:16] LABS: Albumin 3.6 g/dL (3.4-5.0); Bilirubin Direct 0.2 mg/dL (0-0.2); Bilirubin Total 0.5 mg/dL (0.2-1.0); Potassium 4.6 mmol/L (3.5-5.1); Protein, Total 7.3 g/dL (6.4-8.2)
--- NOTE | 2019-08-28 19:01 | RAD REPORT ---
EXAM DESCRIPTION: CT - Abdomen Pelvis Wo Contrast - 08/28/2019 6:44 pm CLINICAL HISTORY: Abdominal pain. ABD PAIN COMPARISON: No comparisons TECHNIQUE: CT imaging of the abdomen and pelvis was performed without contrast. Solid organ, bowel a nd vascular assessment is limited due to lack of IV and oral contrast. All CT scans are performed using dose optimization technique as appropriate and may include automated exposure control or mA/KV adjustment according to patient size. FINDINGS: The lower lung hill are clear.Gastrostomy tube. The liver, spleen, pancreas, adrenal glands and kidneys are within normal limits for a limited non-co ntrast examination.Small benign right renal cyst. No bowel obstruction, free air, free fluid or abscess. Sigmoid diverticulosis without diverticulitis. The appendix is normal. The osseous structures are within normal limits.Small bilateral fat containing inguinal hernias. IMPRESSION: No acute intra-abdominal or pelvic findings. A limited non-contrast examination was performed as detailed.
--- NOTE | 2019-08-28 19:10 | EDPHYS ---
Physician Documentation [facility] Name: Zain Hope Age: 68 yrs Sex: Male : 1950 Arrival Date: 08/28/2019 Time: 17:28 Bed 15 Private MD: MARYAN Physician John Cline HPI: 08/28 17:54 This 68 yrs old Male presents to ER via EMS with complaints of abdominal pain. jr8 17:54 The patient presents with abdominal pain in the upper abdomen. Onset: The jr8 symptoms/episode began/occurred gradually, 1 day(s) ago. The symptoms do not radiate. Associated signs and symptoms: none. The symptoms are described as vague. Modifying factors: The symptoms are alleviated by nothing, the symptoms are aggravated by nothing. Severity of pain: At its worst the pain was mild. The patient has not experienced similar symptoms in the past. The patient has not recently seen a physician. Patient stated that he has had abdominal pain since yesterday. While getting changed accidently tugged on G-tube. Now it feels worse. No longer using gastrostomy tube though since he has been able to eat by mouth . Historical: - Allergies: 17:36 No Known Allergies; ca1 - PMHx: 17:36 CVA; Depression; Diabetes - NIDDM; DYSPHAGIA; GERD; Hyperlipidemia; Hypertension; ca1 Hypothyroidism; CAD; - PSHx: 17:36 PEG tube; G tube; CABG; ca1 - Immunization history:: Adult Immunizations up to date. - Coronavirus screen:: The patient has NOT traveled to [place], [place], or [place] in the past 14 days. The patient has NOT had contact with known/suspected case of Coronavirus?. - Social history:: Smoking status: Patient/guardian denies using tobacco, the patient reports quitting approximately 1 years ago. - Ebola Screening: : Patient negative for fever greater than or equal to 101.5 degrees Fahrenheit, and additional compatible Ebola Virus Disease symptoms Patient denies exposure to infectious person Patient denies travel to an Ebola-affected area in the 21 days before illness onset No symptoms or risks identified at this time. ROS: 18:05 Eyes: Negative for injury, pain, redness, and discharge, ENT: Negative for injury, jr8 pain, and discharge, Neck: Negative for injury, pain, and swelling, Cardiovascular: Negative for chest pain, palpitations, and edema, Respiratory: Negative for shortness of breath, cough, wheezing, and pleuritic chest pain, Back: Negative for injury and pain, MS/Extremity: Negative for injury and deformity, Skin: Negative for injury, rash, and discoloration, Neuro: Negative for headache, weakness, numbness, tingling, and seizure. 18:05 Abdomen/GI: Positive for abdominal pain, Negative for nausea, vomiting, and diarrhea, abdominal cramps, abdominal distension, hematemesis, black/tarry stool, rectal bleeding, bowel incontinence, flatulence. Exam: 18:05 Eyes: Pupils equal round and reactive to light, extra-ocular motions intact. Lids and jr8 lashes normal. Conjunctiva and sclera are non-icteric and not injected. Cornea within normal limits. Periorbital areas with no swelling, redness, or edema. ENT: Nares patent. No nasal discharge, no septal abnormalities noted. Tympanic membranes are normal and external auditory canals are clear. Oropharynx with no redness, swelling, or masses, exudates, or evidence of obstruction, uvula midline. Mucous membranes moist. Neck: Trachea midline, no thyromegaly or masses palpated, and no cervical lymphadenopathy. Supple, full range of motion without nuchal rigidity, or vertebral point tenderness. No Meningismus. Cardiovascular: Regular rate and rhythm with a normal S1 and S2. No gallops, murmurs, or rubs. Normal PMI, no JVD. No pulse deficits. Respiratory: Lungs have equal breath sounds bilaterally, clear to auscultation and percussion. No rales, rhonchi or wheezes noted. No increased work of breathing, no retractions or nasal flaring. Back: No spinal tenderness. No costovertebral tenderness. Full range of motion. Skin: Warm, dry with normal turgor. Normal color with no rashes, no lesions, and no evidence of cellulitis. MS/ Extremity: Pulses equal, no cyanosis. Neurovascular intact. Full, normal range of motion. Neuro: Awake and alert, GCS 15, oriented to person, place, time, and situation. Cranial nerves II-XII grossly intact. Motor strength 5/5 in all extremities. Sensory grossly intact. Cerebellar exam normal. Normal gait. 18:05 Abdomen/GI: Inspection: gastrostomy stoma noted with mild erythema surrounding it. Tube in place. No discharge noted at this time , Bowel sounds: active, all quadrants, Palpation: soft, in all quadrants, mild abdominal tenderness, in the mid abdomen, mass, is not appreciated, rebound tenderness, is not appreciated, voluntary guarding, is not appreciated, involuntary guarding, is not appreciated, no appreciated organomegaly, Indicators: McBurney's point is not tender, Meléndez's sign is negative, Rovsing's sign is negative, Liver: no appreciated palpable abnormalities, tenderness, is not appreciated. Vital Signs: 17:36 BP 150 / 78; Pulse 77; Resp 14 S; Temp 98.6(O); Pulse Ox 99% on R/A; Weight 57.61 kg ca1 (R); Height 5 ft. 11 in. (180.34 cm) (R); Pain 9/10; 18:09 BP 124 / 72; Pulse 75; Resp 15 S; Pulse Ox 100% on R/A; ca1 19:00 BP 134 / 79; Pulse 73; Resp 16; Pulse Ox 100% on R/A; jb4 17:36 Body Mass Index 17.71 (57.61 kg, 180.34 cm) ca1 MDM: 17:28 Patient medically screened. jr8 19:08 Differential diagnosis: bowel obstruction, gastritis, gastroesophageal reflux disease, jr8 GI Bleed, non-specific abd pain, pancreatitis, Peptic Ulcer Disease. Data reviewed: vital signs, nurses notes, lab test result(s), radiologic studies, CT scan. Data interpreted: Pulse oximetry: on room air is 100 %. Interpretation: normal. Counseling: I had a detailed discussion with the patient and/or guardian regarding: the historical points, exam findings, and any diagnostic results supporting the discharge/admit diagnosis, lab results, radiology results, the need for outpatient follow up, a family practitioner, a fish hatchery inspector, to return to the emergency department if symptoms worsen or persist or if there are any questions or concerns that arise at home. Special discussion: Based on the patient's Hx, exam, and Dx evaluation, there is no indication for emergent surgery or inpatient Tx. It is understood by the patient/guardian that if the Sx's persist or worsen they need to return immediately for re-evaluation. ED course: No specific cause for abdominal pain. Does have local skin infection around gastrostomy site. Will put on Abx for that and to f/u with FM and GI . 08/28 17:29 Order name: Basic Metabolic Panel; Complete Time: 18:25 08/28 17: Order name: CBC with Diff; Complete Time: 18:07 08/28 17:29 Order name: Creatinine for Radiology; Complete Time: 18:25 08/28 17:29 Order name: Hepatic Function; Complete Time: 18:25 08/28 17:29 Order name: Lipase; Complete Time: 18:25 08/28 18:25 Order name: CT Abd/Pelvis - Without Contrast; Complete Time: 19:06 08/28 17:29 Order name: IV Saline Lock; Complete Time: 17:50 08/28 17: Order name: Labs collected and sent; Complete Time: 17:51 Administered Medications: No medications were administered Disposition: 08/29 07:37 Co-signature as Attending Physician, John Cline MD I agree with the assessment and agapito plan of care. Disposition: 08/28/19 19:10 Discharged to Home. Impression: Local infection of the skin and subcutaneous tissue, unspecified, Unspecified abdominal pain. - Condition is Stable. - Discharge Instructions: Abdominal Pain, Adult, Cellulitis, Adult. - Prescriptions for Keflex 500 mg Oral Capsule - take 1 capsule by ORAL route every 6 hours for 7 days; 28 capsule. - Medication Reconciliation Form, Thank You Letter, Antibiotic Education, Prescription Opioid Use form. - Follow up: Private Physician; When: 2 - 3 days; Reason: Wound Recheck, Recheck today's complaints, Continuance of care, Re-evaluation by your physician. - Problem is new. - Symptoms are unchanged. Signatures: Dispatcher [employer] [facility] John Cline MD MD cha Roszak, Josh, PA PA jr8 Erik Wise RN RN jb4 Lesly Hall RN RN ca1 Corrections: (The following items were deleted from the chart) 08/28 19:38 19:10 08/28/2019 19:10 Discharged to Home. Impression: Local infection of the skin and jb4 subcutaneous tissue, unspecified; Unspecified abdominal pain. Condition is Stable. Forms are Medication Reconciliation Form, Thank You Letter, Antibiotic Education, Prescription Opioid Use. Follow up: Private Physician; When: 2 - 3 days; Reason: Wound Recheck, Recheck today's complaints, Continuance of care, Re-evaluation by your physician. Problem is new. Symptoms are unchanged. jr8
--- NOTE | 2019-08-28 19:10 | ER ---
Nurse's Notes [facility] Name: Zain Hope Age: 68 yrs Sex: Male : 1950 Arrival Date: 08/28/2019 Time: 17:28 Bed 15 Private MD: Diagnosis: Local infection of the skin and subcutaneous tissue, unspecified;Unspecified abdominal pain Presentation: 08/28 17:30 Presenting complaint: EMS states: Pt is from [facility], c/o abdominal pain. Pt has a G ca1 tube and reports that it has been accidentally yanked last night. They said this G tube hasn't been used anymore and that pt takes meds and food by mouth. Denies N/V at this time. Denies fever. Transition of care: patient was received from another setting of care (long-term care facility), [facility]. Onset of symptoms was August 28, 2019. Risk Assessment: Do you want to hurt yourself or someone else? Patient reports no desire to harm self or others. Initial Sepsis Screen: Does the patient meet any 2 criteria? No. Patient's initial sepsis screen is negative. Does the patient have a suspected source of infection? No. Patient's initial sepsis screen is negative. Care prior to arrival: None. 17:30 Method Of Arrival: EMS: [facility] ca1 17:30 Acuity: BRYANT 3 ca1 Historical: - Allergies: 17:36 No Known Allergies; ca1 - PMHx: 17:36 CVA; Depression; Diabetes - NIDDM; DYSPHAGIA; GERD; Hyperlipidemia; Hypertension; ca1 Hypothyroidism; CAD; - PSHx: 17:36 PEG tube; G tube; CABG; ca1 - Immunization history:: Adult Immunizations up to date. - Coronavirus screen:: The patient has NOT traveled to [place], [place], or [place] in the past 14 days. The patient has NOT had contact with known/suspected case of Coronavirus?. - Social history:: Smoking status: Patient/guardian denies using tobacco, the patient reports quitting approximately 1 years ago. - Ebola Screening: : Patient negative for fever greater than or equal to 101.5 degrees Fahrenheit, and additional compatible Ebola Virus Disease symptoms Patient denies exposure to infectious person Patient denies travel to an Ebola-affected area in the 21 days before illness onset No symptoms or risks identified at this time. Screenin:35 Abuse screen: Denies threats or abuse. Denies injuries from another. Nutritional ca1 screening: No deficits noted. Tuberculosis screening: No symptoms or risk factors identified. Fall Risk Fall in past 12 months (25 points). Secondary diagnosis (15 points) CVA, IV access (20 points). Ambulatory Aid- Crutches/Cane/Walker (15 pts). Total Chandler Fall Scale indicates High Risk Score (45 or more points). Fall prevention measures have been instituted. Side Rails Up X 2 Frequent Obs/Assessments Occuring Family Present and informed to notify staff if the need to leave the bedside As available patient and family educated on Fall Prevention Program and Strategies. Assessment: 17:35 General: Appears in no apparent distress. comfortable, Behavior is calm, cooperative, ca1 appropriate for age. Pain: Complains of pain in epigastric area Pain does not radiate. Pain currently is 9 out of 10 on a pain scale. Pain began 1 day ago. Neuro: Level of Consciousness is awake, alert, obeys commands, Oriented to person, place, time, situation, Appropriate for age. Cardiovascular: Heart tones S1 S2 present Capillary refill < 3 seconds Patient's skin is warm and dry. Respiratory: Airway is patent Respiratory effort is even, unlabored, Respiratory pattern is regular, symmetrical, Breath sounds are clear bilaterally. GI: Abdomen is flat, non-distended, Enteral feeding tube in place, clamped. Site with drainage. Bowel sounds present X 4 quads. Abd is soft and non tender X 4 quads. : No signs and/or symptoms were reported regarding the genitourinary system. EENT: No signs and/or symptoms were reported regarding the EENT system. Derm: Skin is intact, is healthy with good turgor, Skin is pink, warm \T\ dry. Musculoskeletal: Capillary refill < 3 seconds. 19:30 Reassessment: Patient appears in no apparent distress at this time. Patient and/or jb4 family updated on plan of care and expected duration. Pain level reassessed. Patient is alert, oriented x 3, equal unlabored respirations, skin warm/dry/pink. Report called to receiving nurse at [facility]. Vital Signs: 17:36 BP 150 / 78; Pulse 77; Resp 14 S; Temp 98.6(O); Pulse Ox 99% on R/A; Weight 57.61 kg ca1 (R); Height 5 ft. 11 in. (180.34 cm) (R); Pain 9/10; 18:09 BP 124 / 72; Pulse 75; Resp 15 S; Pulse Ox 100% on R/A; ca1 19:00 BP 134 / 79; Pulse 73; Resp 16; Pulse Ox 100% on R/A; jb4 17:36 Body Mass Index 17.71 (57.61 kg, 180.34 cm) ca1 ED Course: 17:28 Patient arrived in ED. bd 17:28 Sunil Camacho PA is PHCP. jr8 17:28 John Cline MD is Attending Physician. jr8 17:30 Lesly Hall, RN is Primary Nurse. ca1 17:34 Triage completed. ca1 17:36 Arm band placed on right wrist. ca1 17:36 Patient has correct armband on for positive identification. Placed in gown. Bed in low ca1 position. Call light in reach. Side rails up X2. 17:36 monitoring engineer on. Pulse ox on. NIBP on. Warm blanket given. ca1 17:36 No provider procedures requiring assistance completed. ca1 17:45 Initial lab(s) drawn, by me, sent to lab. Inserted saline lock: 20 gauge in right dh3 antecubital area, using aseptic technique. Blood collected. 18:44 CT Abd/Pelvis - Without Contrast In Process Unspecified. EDMS 19:37 IV discontinued, intact, bleeding controlled, No redness/swelling at site. Pressure jb4 dressing applied. Administered Medications: No medications were administered Outcome: 19:10 Discharge ordered by . jr8 19:37 [facility] to prison. jb4 19:37 Condition: stable 19:37 Discharge instructions given to patient, family, prison, Instructed on discharge instructions, follow up and referral plans. medication usage, Demonstrated understanding of instructions, follow-up care, medications, Prescriptions given X 1. 19:38 Patient left the ED. jb4 Signatures: Dispatcher [employer] EDMS Lyndsay Wallace Sunil Camacho PA PA jr8 Erik Wise, RN RN jb4 Landy Patel [facility] Lesly Hall RN RN ca1
[2019-08-29 09:55] VITALS: O2SAT 100
[2019-08-29 09:57] VITALS: TEMP 98.6
[2019-08-29 09:58] VITALS: BP 134/79
== END 2019-08-28 19:38 | disposition home or self-care (01) ==
LOC: ER 17:26
DX: L08.9 Local infection of the skin and subcutaneous tissue, unspecified (principal); I10 Essential (primary) hypertension; Z95.1 Presence of aortocoronary bypass graft
CPT/HCPCS: 36415; 74176; 80048; 80076; 83690; 85025; 99284

== ENCOUNTER 2020-12-17 20:18 | Inpatient (IN) | payer OTHER ==
--- OUTSIDE RECORDS SUMMARY | 2020-12-17 20:22 | XMS REPORT | Continuity of Care Document ---
:1950 Author Organization [facility] t Address [address] [place] [address] Care Team Providers Name Role Phone ORLY SMITH Attending Clinician Unavailable ORLY SMITH Admitting Clinician Unavailable Problems Condition Condition Condition Status Onset Resolution Last Treating Co mments Source Name Details Category Date Date Treatment Clinician Date Stenosis Stenosis Disease [facility] - carotid carotid 00:00: Medical artery artery 00 Center History of History of Disease Active [facility] common common 00:00: Medical carotid carotid 00 Center artery artery stent stent placement placement Essential Essential Disease Active [facility] hypertensi hypertensi 4-11 [facility] - on on 00:00: Medical 00 [place] Acute Acute Disease Active [facility] ischemic ischemic 4-03 [facility] - stroke stroke 00:00: Medical 00 [place] Allergies, Adverse Reactions, Alerts This patient has no known allergies or adverse reactions. Social History Social Habit Start Date Stop Date Quantity Comments Source Sex Assigned At [facility] Smoking Status Start Date Stop Date Source Current every day smoker 2018-11-19 00:00:00 [facility] Medications Ordered Filled Start Stop Current Ordering Indication Dosage Frequency Signature Comments Components Source Medication Medication Date Date Medication? Clinician (SIG) Name Name levothyroxi Yes 50ug Take 50 [facility] ne 4-23 mcg by [facility] - (SYNTHROID, 18:30: mouth Medic al LEVOTHROID) 02 Every Center 50 MCG morning on tablet an empty stomach. losartan Yes 12.5mg QD Take 12.[address] 12.5 MG 4-23 mg by [facility] - halftab 18:30: mouth Medical half tablet 02 daily. Center rosuvastati Yes 20mg QD Take [address] [facility] (CRESTOR) 4-23 by mouth Luke s - 20 MG 18:30: daily. Medical tablet 02 Center metoprolol Yes 12.5mg Q.5D Take 12.[address] (LOPRESSOR) 4-23 mg by [facility] - 12.5 MG 18:30: mouth 2 Medical halftab 02 (two) Center half tablet times daily. metFORMIN Yes 1000mg Take 1,[address] (GLUCOPHAGE 4-23 mg by [facility] - ) 1000 MG 18:30: mouth 2 Medic al tablet 02 (two) Center times daily with breakfast and dinner. ticagrelor Yes 90mg Q.5D Take 1 [facility] (BRILINTA) 4-23 tablet (90 Ree es - 90 mg Tab 00:00: mg total) Med ical tablet 00 by mouth 2 Center (two) times daily. insulin Yes 8U Q.5D Inject [address] glargine 4-23 Units [facility] - (LANTUS 00:00: subcutaneo Medi arabella U-100 00 usly 2 Center INSULIN) (two) 100 unit/mL times injection daily Use as directed. Procedures This patient has no known procedures. Plan of Care Planned Activity Planned Date Details Comments Source Future Scheduled 2020-03-31 INFLUENZA VACCINE (#1) [facility] Test 00:00:00 [code = INFLUENZA Medical Ce nter VACCINE (#1)] Future Scheduled 2019-05-[address] [address] [facility] - Test 00:00:00 [facility] Center (procedure) [code = 04912506] Future Scheduled 2014-10-[address] [facility] - Test 00:00:00 WELLNESS (YEAR 2 or Medical Center FIRST YEAR if no IPPE) [code = MEDICARE ANNUAL WELLNESS (YEAR 2 or FIRST YEAR if no IPPE)] Future Scheduled 2013 PNEUMOCOCCAL 65+ YRS [facility] - Test 00:00:00 (1 of 1 - Medical Center [id number] PCV13) [code = PNEUMOCOCCAL 65+ YRS (1 of 1 - [id number] PCV13)] Future Scheduled 1958 DIABETIC EYE EXAM [facility] - Test 00:00:00 [code = DIABETIC EYE Medical Center EXAM] Future Scheduled 1958 Urine screening for [facility] - Test 00:00:00 protein (procedure) Medical Center [code = 975309775] Future Scheduled [address] [facility] - Test 00:00:00 malignant neoplasm of Medica l Center colon (procedure) [code = 633981113] Results Test Description Test Time Test Comments Results Result Comments Source BLOOD CULTURE 2018-11-23 02:01:00 Test Item Value Reference Range Interpretation Comme nts CULTURE (BEAKER) (test code = 1095) No growth in 5 days BLOOD [id number] 02:01:00 Test Item Value Reference Range Interpretation Comments CULTURE (BEAKER) (test No growth in 5 days code = 1095) POCT-GLUCOSE [id number] 17:22:00 Test Item Value Reference Range Interpretation Comments POC-GLUCOSE METER 212 mg/dL 70-110 H TESTED AT [place] [id number] (BEAKER) (test code = [facility] 1538) [address] POCT-GLUCOSE [id number] 12:44:00 Test Item Value Reference Range Interpretation Comments POC-GLUCOSE METER 229 mg/dL 70-110 H TESTED AT [place] [address] [facility] (test code = [facility] 1538) [address] POCT-GLUCOSE [id number] 06:22:00 Test Item Value Reference Range Interpretation Comments POC-GLUCOSE METER 211 mg/dL 70-110 H TESTED AT [place] [address] ([facility] (test code = [facility] 1538) [address] BASIC METABOLIC [id number] 06:20:00 Test Item Value Reference Range Interpretation Comments SODIUM (BEAKER) 140 meq/L 136-145 (test code = 381) POTASSIUM (BEAKER) 4.3 meq/L 3.5-5.1 (test code = 379) CHLORIDE (BEAKER) 106 meq/L 98-107 (test code = 382) CO2 (BEAKER) (test 27 meq/L 22-29 code = 355) BLOOD UREA NITROGEN 35 mg/dL 7-21 H (BEAKER) (test code = 354) CREATININE (BEAKER) 0.95 mg/dL 0.57-1.25 (test code = 358) GLUCOSE RANDOM 200 mg/dL 70-105 H (BEAKER) (test code = 652) CALCIUM (BEAKER) 9.2 mg/dL 8.4-10.2 (test code = 697) EGFR (BEAKER) (test 78 mL/min/1.73 ESTIMA CEDRICK GFR IS code = 1092) sq m NOT ACCURATE CREATININE CLEARANCE IN PREDICTING GLOMERULAR FILTRATION RATE . ESTIMATED GFR I S NOT APPLICABLE FOR DIALYSIS PATIEN TS. CBC (HEMOGRAM ONLY)2018-11-20 05:54:00 Test Item Value Reference Range Interpretation Comments WHITE BLOOD CELL COUNT (BEAKER) 10.6 K/ L 3.5-10.5 H (test code = 775) RED BLOOD CELL COUNT (BEAKER) 4.30 M/ L 4.63-6.08 L (test code = 761) HEMOGLOBIN (BEAKER) (test code = 12.0 GM/DL 13.7-17.5 L 410) HEMATOCRIT (BEAKER) (test code = 37.9 % 40.1-51.0 L 411) MEAN CORPUSCULAR VOLUME (BEAKER) 88.1 fL 79.0-92.2 (test code = 753) MEAN CORPUSCULAR HEMOGLOBIN 27.9 pg 25.7-32.2 (BEAKER) (test code = 751) MEAN CORPUSCULAR HEMOGLOBIN CONC 31.7 GM/DL 32.3-36.5 L (BEAKER) (test code = 752) RED CELL DISTRIBUTION WIDTH 15.0 % 11.6-14.4 H (BEAKER) (test code = 412) PLATELET COUNT (BEAKER) (test 339 K/CU MM 150-450 code = 756) MEAN PLATELET VOLUME (BEAKER) 11.5 fL 9.4-12.4 (test code = 754) NUCLEATED RED BLOOD CELLS 0 /100 WBC 0-0 (BEAKER) (test code = 413) POCT-GLUCOSE [id number] 23:49:00 Test Item Value Reference Range Interpretation Comments POC-GLUCOSE METER 230 mg/dL 70-110 H TESTED AT [facility] 6720 (BEAKER) (test code = [facility] 1538) [address] POCT-GLUCOSE [id number] 18:04:00 Test Item Value Reference Range Interpretation Comments POC-GLUCOSE METER 256 mg/dL 70-110 H TESTED AT [place] [address] (BEAKER) (test code = KWASI Rowe [facility] 1538) [address] URINALYSIS WITH MICROSCOPIC IF [id number] 14:11:00 Test Item Value Reference Range Interpretation Comments COLOR (BEAKER) (test code = 470) Yellow CLARITY (BEAKER) (test code = 469) Hazy SPECIFIC GRAVITY UA (BEAKER) (test 1.016 1.001-1.035 code = 468) PH UA (BEAKER) (test code = 467) 7.5 5.0-8.0 PROTEIN UA (BEAKER) (test code = Negative Negative 464) GLUCOSE UA (BEAKER) (test code = Negative Negative 365) KETONES UA (BEAKER) (test code = Negative Negative 371) BILIRUBIN UA (BEAKER) (test code = Negative Negative 462) BLOOD UA (BEAKER) (test code = 461) Negative Negative NITRITE UA (BEAKER) (test code = Negative Negative 465) LEUKOCYTE ESTERASE UA (BEAKER) Negative Negative (test code = 466) UROBILINOGEN UA (BEAKER) (test code 0.2 mg/dL 0.2-1.0 = 463) SOURCE(BEAKER) (test code = 2795) POCT-GLUCOSE [id number] 12:12:00 Test Item Value Reference Range Interpretation Comments POC-GLUCOSE METER 227 mg/dL 70-110 H TESTED AT [place] [address] (BEAKER) (test code = KWASI Rowe [facility] 1538) [address] POCT-GLUCOSE [id number] 11:58:00 Test Item Value Reference Range Interpretation Comments POC-GLUCOSE METER 243 mg/dL 70-110 H TESTED AT [place] [address] (BEAKER) ([facility] = [facility] 1538) [address] BASIC METABOLIC [id number] 05:42:00 Test Item Value Reference Range Interpretation Comments SODIUM (BEAKER) 140 meq/L 136-145 (test code = 381) POTASSIUM (BEAKER) 4.5 meq/L 3.5-5.1 (test code = 379) CHLORIDE (BEAKER) 105 meq/L 98-107 (test code = 382) CO2 (BEAKER) (test 27 meq/L 22-29 code = 355) BLOOD UREA NITROGEN 40 mg/dL 7-21 H (BEAKER) (test code = 354) CREATININE (BEAKER) 1.01 mg/dL 0.57-1.25 (test code = 358) GLUCOSE RANDOM 231 mg/dL 70-105 H (BEAKER) (test code = 652) CALCIUM (BEAKER) 9.4 mg/dL 8.4-10.2 (test code = 697) EGFR (BEAKER) (test 73 mL/min/1.73 ESTIMA CEDRICK GFR IS code = 1092) sq m NOT ACCURATE CREATININE CLEARANCE IN PREDICTING GLOMERULAR FILTRATION RATE . ESTIMATED GFR I S NOT APPLICABLE FOR DIALYSIS PATIEN TS. CBC (HEMOGRAM ONLY)2018-11-19 05:23:00 Test Item Value Reference Range Interpretation Comments WHITE BLOOD CELL COUNT (BEAKER) 11.9 K/ L 3.5-10.5 H (test code = 775) RED BLOOD CELL COUNT (BEAKER) 4.05 M/ L 4.63-6.08 L (test code = 761) HEMOGLOBIN (BEAKER) (test code = 11.5 GM/DL 13.7-17.5 L 410) HEMATOCRIT (BEAKER) (test code = 35.3 % 40.1-51.0 L 411) MEAN CORPUSCULAR VOLUME (BEAKER) 87.2 fL 79.0-92.2 (test code = 753) MEAN CORPUSCULAR HEMOGLOBIN 28.4 pg 25.7-32.2 (BEAKER) (test code = 751) MEAN CORPUSCULAR HEMOGLOBIN CONC 32.6 GM/DL 32.3-36.5 (BEAKER) (test code = 752) RED CELL DISTRIBUTION WIDTH 14.7 % 11.6-14.4 H (BEAKER) (test code = 412) PLATELET COUNT (BEAKER) (test 354 K/CU MM 150-450 code = 756) MEAN PLATELET VOLUME (BEAKER) 11.2 fL 9.4-12.4 (test code = 754) NUCLEATED RED BLOOD CELLS 0 /100 WBC 0-0 (BEAKER) (test code = 413) POCT-GLUCOSE [id number] 17:25:00 Test Item Value Reference Range Interpretation Comments POC-GLUCOSE METER 267 mg/dL 70-110 H TESTED AT [place] [address] (BEAKER) (test code = [facility] Soledad [facility] 1538) [address] URINALYSIS W/ REFLEX URINE [id number] 14:12:00 Test Item Value Reference Range Interpretation Comments COLOR (BEAKER) (test code = 470) Yellow CLARITY (BEAKER) (test code = 469) Clear SPECIFIC GRAVITY UA (BEAKER) (test 1.018 1.001-1.035 code = 468) PH UA (BEAKER) (test code = 467) 6.5 5.0-8.0 PROTEIN UA (BEAKER) (test code = 10 mg/dL Negative A 464) GLUCOSE UA (BEAKER) (test code = Negative Negative 365) KETONES UA (BEAKER) (test code = Negative Negative 371) BILIRUBIN UA (BEAKER) (test code = Negative Negative 462) BLOOD UA (BEAKER) (test code = 461) Negative Negative NITRITE UA (BEAKER) (test code = Positive Negative A 465) LEUKOCYTE ESTERASE UA (BEAKER) Moderate Negative A (test code = 466) UROBILINOGEN UA (BEAKER) (test code 0.2 mg/dL 0.2-1.0 = 463) RBC UA (BEAKER) (test code = 519) < /HPF WBC UA (BEAKER) (test code = 520) 15 /HPF BACTERIA (BEAKER) (test code = 517) Rare MUCUS (BEAKER) (test code = 1574) Rare YEAST (BEAKER) (test code = 1585) Rare SOURCE(BEAKER) (test code = 2795) POCT-GLUCOSE [id number] 11:51:00 Test Item Value Reference Range Interpretation Comments POC-GLUCOSE METER 258 mg/dL 70-110 H TESTED AT [place] [address] (BEAKER) (test code = [facility] 1538) [address] POCT-GLUCOSE [id number] 09:43:00 Test Item Value Reference Range Interpretation Comments POC-GLUCOSE METER 235 mg/dL 70-110 H TESTED AT [place] [address] (BEAKER) (test code = [facility] [place] 1538) [id number] TROPONIN [id number] 05:55:00 Test Item Value Reference Range Interpretation Comments TROPONIN I (BEAKER) (test code = 1.66 ng/mL 0.00-0.03 HH 397) Troponin I (TnI) levels must be interpreted [...] acute neurological disease, and persistent tachyarrhythmia.BASIC METABOLIC [id number] 05:53:00 Test Item Value Reference Range Interpretation Comments SODIUM (BEAKER) 139 meq/L 136-145 (test code = 381) POTASSIUM (BEAKER) 4.5 meq/L 3.5-5.1 Specimen slightly (test code = 379) hemolyzed CHLORIDE (BEAKER) 104 meq/L 98-107 (test code = 382) CO2 (BEAKER) (test 27 meq/L 22-29 code = 355) BLOOD UREA NITROGEN 37 mg/dL 7-21 H (BEAKER) (test code = 354) CREATININE (BEAKER) 0.98 mg/dL 0.57-1.25 Specimen slightly (test code = 358) hemolyzed GLUCOSE RANDOM 214 mg/dL 70-105 H (BEAKER) (test code = 652) CALCIUM (BEAKER) 9.4 mg/dL 8.4-10.2 (test code = 697) EGFR (BEAKER) (test 76 mL/min/1.73 ESTIMA CEDRICK GFR IS code = 1092) sq m NOT ACCURATE CREATININE CLEARANCE IN PREDICTING GLOMERULAR FILTRATION RATE . ESTIMATED GFR I S NOT APPLICABLE FOR DIALYSIS PATIEN TS. CBC (HEMOGRAM ONLY)2018-11-18 05:27:00 Test Item Value Reference Range Interpretation Comments WHITE BLOOD CELL COUNT (BEAKER) 11.7 K/ L 3.5-10.5 H (test code = 775) RED BLOOD CELL COUNT (BEAKER) 4.10 M/ L 4.63-6.08 L (test code = 761) HEMOGLOBIN (BEAKER) (test code = 11.7 GM/DL 13.7-17.5 L 410) HEMATOCRIT (BEAKER) (test code = 35.6 % 40.1-51.0 L 411) MEAN CORPUSCULAR VOLUME (BEAKER) 86.8 fL 79.0-92.2 (test code = 753) MEAN CORPUSCULAR HEMOGLOBIN 28.5 pg 25.7-32.2 (BEAKER) (test code = 751) MEAN CORPUSCULAR HEMOGLOBIN CONC 32.9 GM/DL 32.3-36.5 (BEAKER) (test code = 752) RED CELL DISTRIBUTION WIDTH 14.6 % 11.6-14.4 H (BEAKER) (test code = 412) PLATELET COUNT (BEAKER) (test 361 K/CU MM 150-450 code = 756) MEAN PLATELET VOLUME (BEAKER) 11.1 fL 9.4-12.4 (test code = 754) NUCLEATED RED BLOOD CELLS 0 /100 WBC 0-0 (BEAKER) (test code = 413) POCT-GLUCOSE [id number] 01:42:00 Test Item Value Reference Range Interpretation Comments POC-GLUCOSE METER 239 mg/dL 70-110 H TESTED AT [facility] 6720 (BEAKER) (test code = KWASI Rowe [facility] 1538) [address] TROPONIN [id number] 00:15:00 Test Item Value Reference Range Interpretation Comments TROPONIN I (BEAKER) (test code = 1.73 ng/mL 0.00-0.03 HH 397) Troponin I (TnI) levels must be interpreted [...] disease, and persistent tachyarrhythmia.URINALYSIS WITH MICROSCOPIC IF INDICATED 2018-11-18 00:06:00 Test Item Value Reference Range Interpretation Comments COLOR (BEAKER) (test code = 470) Yellow CLARITY (BEAKER) (test code = 469) Hazy SPECIFIC GRAVITY UA (BEAKER) (test 1.017 1.001-1.035 code = 468) PH UA (BEAKER) (test code = 467) 6.5 5.0-8.0 PROTEIN UA (BEAKER) (test code = Negative Negative 464) GLUCOSE UA (BEAKER) (test code = Negative Negative 365) KETONES UA (BEAKER) (test code = Trace Negative A 371) BILIRUBIN UA (BEAKER) (test code = Negative Negative 462) BLOOD UA (BEAKER) (test code = 461) Negative Negative NITRITE UA (BEAKER) (test code = Positive Negative A 465) LEUKOCYTE ESTERASE UA (BEAKER) Small Negative A (test code = 466) UROBILINOGEN UA (BEAKER) (test code 0.2 mg/dL 0.2-1.0 = 463) SOURCE(BEAKER) (test code = 2795) URINALYSIS [id number] 00:06:00 Test Item Value Reference Range Interpretation Comments RBC UA (BEAKER) (test code = 519) 1 /HPF WBC UA (BEAKER) (test code = 520) 5 /HPF BACTERIA (BEAKER) (test code = 517) Rare MUCUS (BEAKER) (test code = 1574) Rare TROPONIN [id number] 18:49:00 Test Item Value Reference Range Interpretation Comments TROPONIN I (BEAKER) (test code = 1.45 ng/mL 0.00-0.03 397) Troponin I (TnI) levels must be interpreted [...] acidosis, acute neurological disease, and persistent tachyarrhythmia.POCT-GLUCOSE [id number] 16:26:00 Test Item Value Reference Range Interpretation Comments POC-GLUCOSE METER 316 mg/dL 70-110 H Notified R Xenia DUKES/TESTED (EDWIN) (test code = AT [facility] [address] 1538) [facility] 7[address] 0 POCT-GLUCOSE [id number] 13:27:00 Test Item Value Reference Range Interpretation Comments POC-GLUCOSE METER 272 mg/dL 70-110 H TESTED AT [place] [address] (EDWIN) (test code = KWASI Rowe [place] [address]78) [address] TROPONIN [id number] 11:19:00 Test Item Value Reference Range Interpretation Comments TROPONIN I (BEAKER) (test code = 0.84 ng/mL 0.00-0.03 397) Troponin I (TnI) levels must be interpreted [...] acute neurological disease, and persistent tachyarrhythmia.BASIC METABOLIC [id number] 07:39:00 Test Item Value Reference Range Interpretation Comments SODIUM (BEAKER) 137 meq/L 136-145 (test code = 381) POTASSIUM (BEAKER) 4.6 meq/L 3.5-5.1 (test code = 379) CHLORIDE (BEAKER) 104 meq/L 98-107 (test code = 382) CO2 (BEAKER) (test 24 meq/L 22-29 code = 355) BLOOD UREA NITROGEN 35 mg/dL 7-21 H (BEAKER) (test code = 354) CREATININE (BEAKER) 1.02 mg/dL 0.57-1.25 (test code = 358) GLUCOSE RANDOM 242 mg/dL 70-105 H (BEAKER) (test code = 652) CALCIUM (BEAKER) 9.5 mg/dL 8.4-10.2 (test code = 697) EGFR (BEAKER) (test 72 mL/min/1.73 ESTIMA CEDRICK GFR IS code = 1092) sq m NOT ACCURATE CREATININE CLEARANCE IN PREDICTING GLOMERULAR FILTRATION RATE . ESTIMATED GFR I S NOT APPLICABLE FOR DIALYSIS PATIEN TS. TROPONIN [id number] 06:49:00 Test Item Value Reference Range Interpretation Comments TROPONIN I (BEAKER) (test code = 0.23 ng/mL 0.00-0.03 397) Troponin I (TnI) levels must be interpreted [...] acidosis, acute neurological disease, and persistent tachyarrhythmia.POCT-GLUCOSE [id number] 05:50:00 Test Item Value Reference Range Interpretation Comments POC-GLUCOSE METER 244 mg/dL 70-110 H TESTED AT [facility] 6720 (BEAKER) (test code = KWASI Rowe [facility] 1538) [id number] CBC (HEMOGRAM ONLY)2018-11-17 04:38:00 Test Item Value Reference Range Interpretation Comments WHITE BLOOD CELL COUNT (BEAKER) 13.2 K/ L 3.5-10.5 H (test code = 775) RED BLOOD CELL COUNT (BEAKER) 4.23 M/ L 4.63-6.08 L (test code = 761) HEMOGLOBIN (BEAKER) (test code = 11.9 GM/DL 13.7-17.5 L 410) HEMATOCRIT (BEAKER) (test code = 37.0 % 40.1-51.0 L 411) MEAN CORPUSCULAR VOLUME (BEAKER) 87.5 fL 79.0-92.2 (test code = 753) MEAN CORPUSCULAR HEMOGLOBIN 28.1 pg 25.7-32.2 (BEAKER) (test code = 751) MEAN CORPUSCULAR HEMOGLOBIN CONC 32.2 GM/DL 32.3-36.5 L (BEAKER) (test code = 752) RED CELL DISTRIBUTION WIDTH 14.8 % 11.6-14.4 H (BEAKER) (test code = 412) PLATELET COUNT (BEAKER) (test 391 K/CU MM 150-450 code = 756) MEAN PLATELET VOLUME (BEAKER) 10.7 fL 9.4-12.4 (test code = 754) NUCLEATED RED BLOOD CELLS 0 /100 WBC 0-0 (BEAKER) (test code = 413) POCT-GLUCOSE [id number] 23:38:00 Test Item Value Reference Range Interpretation Comments POC-GLUCOSE METER 232 mg/dL 70-110 H TESTED AT [place] [address] ([facility]) (test code = [facility] 1538) [id number] TROPONIN [id number] 18:59:00 Test Item Value Reference Range Interpretation Comments TROPONIN I ([facility]) (test code = 0.02 ng/mL 0.00-0.03 397) Troponin I (TnI) levels must be interpreted [...] acidosis, acute neurological disease, and persistent tachyarrhythmia.POCT-GLUCOSE [id number] 18:22:00 Test Item Value Reference Range Interpretation Comments POC-GLUCOSE METER 244 mg/dL 70-110 H TESTED AT [facility] 6720 (BEAKER) (test code = [facility] [place] 1538) [address] BASIC METABOLIC [id number] 06:29:00 Test Item Value Reference Range Interpretation Comments SODIUM (BEAKER) 135 meq/L 136-145 L (test code = 381) POTASSIUM (BEAKER) 4.5 meq/L 3.5-5.1 (test code = 379) CHLORIDE (BEAKER) 101 meq/L 98-107 (test code = 382) CO2 (BEAKER) (test 26 meq/L 22-29 code = 355) BLOOD UREA NITROGEN 35 mg/dL 7-21 H (BEAKER) (test code = 354) CREATININE (BEAKER) 1.02 mg/dL 0.57-1.25 (test code = 358) GLUCOSE RANDOM 218 mg/dL 70-105 H (BEAKER) (test code = 652) CALCIUM (BEAKER) 9.6 mg/dL 8.4-10.2 (test code = 697) EGFR (BEAKER) (test 72 mL/min/1.73 ESTIMA CEDRICK GFR IS code = 1092) sq m NOT ACCURATE CREATININE CLEARANCE IN PREDICTING GLOMERULAR FILTRATION RATE . ESTIMATED GFR I S NOT APPLICABLE FOR DIALYSIS PATIEN TS. CBC (HEMOGRAM ONLY)2018-11-16 06:02:00 Test Item Value Reference Range Interpretation Comments WHITE BLOOD CELL COUNT (BEAKER) 11.8 K/ L 3.5-10.5 H (test code = 775) RED BLOOD CELL COUNT (BEAKER) 4.32 M/ L 4.63-6.08 L (test code = 761) HEMOGLOBIN (BEAKER) (test code = 12.4 GM/DL 13.7-17.5 L 410) HEMATOCRIT (BEAKER) (test code = 37.3 % 40.1-51.0 L 411) MEAN CORPUSCULAR VOLUME (BEAKER) 86.3 fL 79.0-92.2 (test code = 753) MEAN CORPUSCULAR HEMOGLOBIN 28.7 pg 25.7-32.2 (BEAKER) (test code = 751) MEAN CORPUSCULAR HEMOGLOBIN CONC 33.2 GM/DL 32.3-36.5 ([facility]) (test code = 752) RED CELL DISTRIBUTION WIDTH 14.6 % 11.6-14.4 H ([facility]) (test code = 412) PLATELET COUNT ([facility]) (test 379 K/CU MM 150-450 code = 756) MEAN PLATELET VOLUME (AKER) 10.6 fL 9.4-12.4 (test code = 754) NUCLEATED RED BLOOD CELLS 0 /100 WBC 0-0 ([facility]) (test code = 413) POCT-GLUCOSE [id number] 05:53:00 Test Item Value Reference Range Interpretation Comments POC-GLUCOSE METER 208 mg/dL 70-110 H TESTED AT [place] [address] ([facility]) (test code = [facility] Soledad [facility] 1538) [id number] POCT-GLUCOSE [id number] 23:49:00 Test Item Value Reference Range Interpretation Comments POC-GLUCOSE METER 221 mg/dL 70-110 H TESTED AT [place] [address] ([facility]) (test code = [facility] 1538) [address] POCT-GLUCOSE [id number] 17:37:00 Test Item Value Reference Range Interpretation Comments POC-GLUCOSE METER 237 mg/dL 70-110 H TESTED AT [place] [address] ([facility]) (test code = [facility] 1538) [id number] POCT-GLUCOSE [id number] 12:33:00 Test Item Value Reference Range Interpretation Comments POC-GLUCOSE METER 223 mg/dL 70-110 H TESTED AT [place] [address] ([facility]) (test code = [facility] 1538) [id number] POCT-GLUCOSE [id number] 06:38:00 Test Item Value Reference Range Interpretation Comments POC-GLUCOSE METER 247 mg/dL 70-110 H TESTED AT [place] [address] ([facility]) (test code = [facility] 1538) [id number] BASIC METABOLIC [id number] 06:01:00 Test Item Value Reference Range Interpretation Comments SODIUM ([facility]) 135 meq/L 136-145 L (test code = 381) POTASSIUM (AKER) 4.7 meq/L 3.5-5.1 (test code = 379) CHLORIDE (BEAKER) 100 meq/L 98-107 (test code = 382) CO2 (BEAKER) (test 25 meq/L 22-29 code = 355) BLOOD UREA NITROGEN 29 mg/dL 7-21 H (BEAKER) (test code = 354) CREATININE (BEAKER) 0.97 mg/dL 0.57-1.25 (test code = 358) GLUCOSE RANDOM 217 mg/dL 70-105 H (BEAKER) (test code = 652) CALCIUM (BEAKER) 9.6 mg/dL 8.4-10.2 (test code = 697) EGFR (BEAKER) (test 77 mL/min/1.73 ESTIMA CEDRICK GFR IS code = 1092) sq m NOT ACCURATE CREATININE CLEARANCE IN PREDICTING GLOMERULAR FILTRATION RATE . ESTIMATED GFR I S NOT APPLICABLE FOR DIALYSIS PATIEN TS. CBC (HEMOGRAM ONLY)2018-11-15 05:41:00 Test Item Value Reference Range Interpretation Comments WHITE BLOOD CELL COUNT (BEAKER) 12.0 K/ L 3.5-10.5 H (test code = 775) RED BLOOD CELL COUNT (BEAKER) 4.34 M/ L 4.63-6.08 L (test code = 761) HEMOGLOBIN (BEAKER) (test code = 12.4 GM/DL 13.7-17.5 L 410) HEMATOCRIT (BEAKER) (test code = 37.5 % 40.1-51.0 L 411) MEAN CORPUSCULAR VOLUME (BEAKER) 86.4 fL 79.0-92.2 (test code = 753) MEAN CORPUSCULAR HEMOGLOBIN 28.6 pg 25.7-32.2 (BEAKER) (test code = 751) MEAN CORPUSCULAR HEMOGLOBIN CONC 33.1 GM/DL 32.3-36.5 (BEAKER) (test code = 752) RED CELL DISTRIBUTION WIDTH 14.6 % 11.6-14.4 H (BEAKER) (test code = 412) PLATELET COUNT (BEAKER) (test 373 K/CU MM 150-450 code = 756) MEAN PLATELET VOLUME (BEAKER) 10.8 fL 9.4-12.4 (test code = 754) NUCLEATED RED BLOOD CELLS 0 /100 WBC 0-0 (BEAKER) (test code = 413) POCT-GLUCOSE [id number] 02:35:00 Test Item Value Reference Range Interpretation Comments POC-GLUCOSE METER 220 mg/dL 70-110 H TESTED [place] [place] [address] (BEAKER) (test code = KWASI Rowe [place] 1538) [id number] POCT-GLUCOSE [id number] 16:55:00 Test Item Value Reference Range Interpretation Comments POC-GLUCOSE METER 239 mg/dL 70-110 H TESTED AT [place] [address] (BEAKER) (test code = KWASI Rowe [place] 1538) [id number] POCT-GLUCOSE [id number] 12:09:00 Test Item Value Reference Range Interpretation Comments POC-GLUCOSE METER 246 mg/dL 70-110 H TESTED AT [place] [address] (BEAKER) (test code = KWASI Rowe [facility] 1538) [address] BASIC METABOLIC [id number] 05:52:00 Test Item Value Reference Range Interpretation Comments SODIUM (BEAKER) 137 meq/L 136-145 (test code = 381) POTASSIUM (BEAKER) 4.2 meq/L 3.5-5.1 (test code = 379) CHLORIDE (BEAKER) 101 meq/L 98-107 (test code = 382) CO2 (BEAKER) (test 29 meq/L 22-29 code = 355) BLOOD UREA NITROGEN 26 mg/dL 7-21 H (BEAKER) (test code = 354) CREATININE (BEAKER) 0.93 mg/dL 0.57-1.25 (test code = 358) GLUCOSE RANDOM 209 mg/dL 70-105 H (BEAKER) (test code = 652) CALCIUM (BEAKER) 9.7 mg/dL 8.4-10.2 (test code = 697) EGFR (BEAKER) (test 80 mL/min/1.73 ESTIMA CEDRICK GFR IS code = 1092) sq m NOT ACCURATE CREATININE CLEARANCE IN PREDICTING GLOMERULAR FILTRATION RATE . ESTIMATED GFR I S NOT APPLICABLE FOR DIALYSIS PATIEN TS. POCT-GLUCOSE [id number] 05:37:00 Test Item Value Reference Range Interpretation Comments POC-GLUCOSE METER 181 mg/dL 70-110 H TESTED AT [place] [address] (BEAKER) (test code = [place]ASI Row[place] 1538) [id number] CBC (HEMOGRAM ONLY)2018-11-14 05:37:00 Test Item Value Reference Range Interpretation Comments WHITE BLOOD CELL COUNT (BEAKER) 10.7 K/ L 3.5-10.5 H (test code = 775) RED BLOOD CELL COUNT (BEAKER) 4.16 M/ L 4.63-6.08 L (test code = 761) HEMOGLOBIN (BEAKER) (test code = 11.8 GM/DL 13.7-17.5 L 410) HEMATOCRIT (BEAKER) (test code = 36.1 % 40.1-51.0 L 411) MEAN CORPUSCULAR VOLUME (BEAKER) 86.8 fL 79.0-92.2 (test code = 753) MEAN CORPUSCULAR HEMOGLOBIN 28.4 pg 25.7-32.2 (BEAKER) (test code = 751) MEAN CORPUSCULAR HEMOGLOBIN CONC 32.7 GM/DL 32.3-36.5 (BEAKER) (test code = 752) RED CELL DISTRIBUTION WIDTH 14.6 % 11.6-14.4 H (BEAKER) (test code = 412) PLATELET COUNT (BEAKER) (test 331 K/CU MM 150-450 code = 756) MEAN PLATELET VOLUME (BEAKER) 10.5 fL 9.4-12.4 (test code = 754) NUCLEATED RED BLOOD CELLS 0 /100 WBC 0-0 (BEAKER) (test code = 413) POCT-GLUCOSE [id number] 00:10:00 Test Item Value Reference Range Interpretation Comments POC-GLUCOSE METER 225 mg/dL 70-110 H TESTED [place] [address] ([facility]) (test code = KWASI Rowe [facility] 1538) [address] POCT-GLUCOSE [id number] 17:58:00 Test Item Value Reference Range Interpretation Comments POC-GLUCOSE METER 221 mg/dL 70-110 H TESTED [place] [address] ([facility]) (test code = [facility] [place] [facility] 1538) [address] CT, SPINE, CERVICAL, WO [id number] 15:33:00FINAL REPORT EXAM: CERVICAL SPINE CT WITHOUT [...] malalignment. Signed: JR Stein Robert MDReport Verified Date/Time: 11/13/2018 15:33:48 Reading Location: [facility] Radiology Reading Room CT, BRAIN, WITHOUT [id number] 15:22:00FINAL REPORT CT head without contrast. Reason [...] Parker Verified Date/Time: 11/13/2018 15:22:34 Reading Location: [facility] B1 [id number] Consult Reading Room POCT-GLUCOSE [id number] 12:10:00 Test Item Value Reference Range Interpretation Comments POC-GLUCOSE METER 218 mg/dL 70-110 H TESTED AT [facility] 6720 (BEAKER) (test code = [place] 1538) [address] BASIC METABOLIC [id number] 08:05:00 Test Item Value Reference Range Interpretation Comments SODIUM (BEAKER) 135 meq/L 136-145 L (test code = 381) POTASSIUM (BEAKER) 4.7 meq/L 3.5-5.1 (test code = 379) CHLORIDE (BEAKER) 101 meq/L 98-107 (test code = 382) CO2 (BEAKER) (test 28 meq/L 22-29 code = 355) BLOOD UREA NITROGEN 21 mg/dL 7-21 (BEAKER) (test code = 354) CREATININE (BEAKER) 0.87 mg/dL 0.57-1.25 (test code = 358) GLUCOSE RANDOM 206 mg/dL 70-105 H (BEAKER) (test code = 652) CALCIUM (BEAKER) 9.8 mg/dL 8.4-10.2 (test code = 697) EGFR (BEAKER) (test 87 mL/min/1.73 ESTIMA CEDRICK GFR IS code = 1092) sq m NOT ACCURATE CREATININE CLEARANCE IN PREDICTING GLOMERULAR FILTRATION RATE . ESTIMATED GFR I S NOT APPLICABLE FOR DIALYSIS PATIEN TS. CBC W/PLT COUNT & AUTO [id number] 08:02:00 Test Item Value Reference Range Interpretation Comments WHITE BLOOD CELL COUNT (BEAKER) 13.4 K/ L 3.5-10.5 H (test code = 775) RED BLOOD CELL COUNT (BEAKER) 4.20 M/ L 4.63-6.08 L (test code = 761) HEMOGLOBIN (BEAKER) (test code = 11.9 GM/DL 13.7-17.5 L 410) HEMATOCRIT (BEAKER) (test code = 36.1 % 40.1-51.0 L 411) MEAN CORPUSCULAR VOLUME (BEAKER) 86.0 fL 79.0-92.2 (test code = 753) MEAN CORPUSCULAR HEMOGLOBIN 28.3 pg 25.7-32.2 (BEAKER) (test code = 751) MEAN CORPUSCULAR HEMOGLOBIN CONC 33.0 GM/DL 32.3-36.5 (BEAKER) (test code = 752) RED CELL DISTRIBUTION WIDTH 14.6 % 11.6-14.4 H (BEAKER) (test code = 412) PLATELET COUNT (BEAKER) (test 333 K/CU MM 150-450 code = 756) MEAN PLATELET VOLUME (BEAKER) 10.3 fL 9.4-12.4 (test code = 754) NUCLEATED RED BLOOD CELLS 0 /100 WBC 0-0 (BEAKER) (test code = 413) NEUTROPHILS RELATIVE PERCENT 80 % (BEAKER) (test code = 429) LYMPHOCYTES RELATIVE PERCENT 11 % (BEAKER) (test code = 430) MONOCYTES RELATIVE PERCENT 6 % (BEAKER) (test code = 431) EOSINOPHILS RELATIVE PERCENT 3 % (BEAKER) (test code = 432) BASOPHILS RELATIVE PERCENT 0 % (BEAKER) (test code = 437) NEUTROPHILS ABSOLUTE COUNT 10.63 K/ L 1.78-5.38 H (BEAKER) (test code = 670) LYMPHOCYTES ABSOLUTE COUNT 1.52 K/ L 1.32-3.57 (BEAKER) (test code = 414) MONOCYTES ABSOLUTE COUNT (BEAKER) 0.76 K/ L 0.30-0.82 (test code = 415) EOSINOPHILS ABSOLUTE COUNT 0.35 K/ L 0.04-0.54 (BEAKER) (test code = 416) BASOPHILS ABSOLUTE COUNT (BEAKER) 0.04 K/ L 0.01-0.08 (test code = 417) IMMATURE GRANULOCYTES-RELATIVE 1 % 0-1 PERCENT (BEAKER) (test code = 1201) POCT-GLUCOSE [id number] 05:35:00 Test Item Value Reference Range Interpretation Comments POC-GLUCOSE METER 190 mg/dL 70-110 H TESTED [place] [address] ([facility]) (test code = [facility] 1538) [address] POCT-GLUCOSE [id number] 00:25:00 Test Item Value Reference Range Interpretation Comments POC-GLUCOSE METER 193 mg/dL 70-110 H TESTED AT [place] [address] ([facility]) (test code = [facility] 1538) [address] POCT-GLUCOSE [id number] 18:09:00 Test Item Value Reference Range Interpretation Comments POC-GLUCOSE METER 204 mg/dL 70-110 H TESTED AT [place] [address] ([facility]) (test code = [facility] 1538) [address] CORDELIA, CAROTID STENT W [id number] 14:42:00Reason for exam:->R carotid stent for carotid stenosisFINAL REPORT DATE OF PROCEDURE: 11/07/2018 SURGEON: Garrett Echevarria M.D. CLINICAL TRAINER: Lon Lopez MD PREOPERATIVE DIAGNOSIS: Right hemispheric stroke with severe right carotid artery stenosis POST OPERATIVE DIAGNOSIS: Right hemispheric stroke with severe right carotid artery stenosis OPERATION: 1) Cerebral Angiogram2) right carotid stent IMPLANTS: Precise Pro Stent [id number] stent 8-6 x 40 ANESTHESIA: Moderate sedation ESTIMATED BLOOD LOSS: Less than 30 mL COMPLICATIO NS: None INDICATIONS: The patient is a 67 [...] Both groins were prepped in the usual ster ile fashion using Chloraprep, and sterilely draped. A standard access was performed using a micropuncture kit on the right side to access the right common femoral artery. Serial dilation was performedand then a 9 [place] short sheath was placed in the right common femoral artery and placed on heparinized flush. Angiography was performed via the sheath confirmed satisfactory placement. A 5 [place] diagnostic glide catheter was then used to [...] to advance the stent over the balance mi ddleweight wire and into the internal carotid artery [...] angioplasty. Aspiration was then performed via the [employer] system for a total of 30cc. Thisaspirate [...] Signed: Garrett Echevarria MDReport Verified Date/Time: 11/12/2018 14:42:01 Reading [facility] [place], ANGIOGRAM, [id number] 14:41:00Reason for exam:->right ICA stenosisFINAL REPORT DATE OF PROCEDURE: November 05, 2018 SURGEON: Garrett Echevarria M.D. CLINICAL TRAINER: Lon Lopez MD PREOPERATIVE DIAGNOSIS: Right carotid [...] right femoral artery was anesthetized with 1% lid ocaine. A single wall puncture of the right [...] Additional diagnostic catheters included use of a [employer] 2 catheter. 3-dimensional angiogram was performed and processed on an independent workstation. These images were reviewed by Dr. Echevarria separately. The catheter was removed. The femoral sheath was removed and hemostasis was achieved with a 6- [place] AngioSeal closuredevice. The patient tolerated the procedure [...] anterior cerebral artery. No vascular malformation or art eriovenous shunting is noted. No stenosis or vasospasm is observed. No significant abnormalities areseen in the capillary and venous phases. The visualized portions of the external carotid artery and its branches are normal without evidence of ulceration or stenosis. There is preferential filling thro ugh the external carotid artery branches with robust [...] Signed: Garrett Echevarria MDReport Verified Date/Time: 11/12/2018 14:41:58 Reading Location: [facility] [id number] Neuro Angio Reading Room POCT- GLUCOSE [id number] 12:37:00 Test Item Value Reference Range Interpretation Comments POC-GLUCOSE METER 157 mg/dL 70-110 H TESTED AT [facility] 6720 (BEAKER) (test code = [facility] [place] 1538) [address] POCT-GLUCOSE [id number] 06:41:00 Test Item Value Reference Range Interpretation Comments POC-GLUCOSE METER 176 mg/dL 70-110 H TESTED [place] [address] [facility] (test code = [facility] 1538) [address] BASIC METABOLIC [id number] 06:30:00 Test Item Value Reference Range Interpretation Comments SODIUM (BEAKER) 133 meq/L 136-145 L (test code = 381) POTASSIUM (BEAKER) 4.3 meq/L 3.5-5.1 (test code = 379) CHLORIDE (BEAKER) 101 meq/L 98-107 (test code = 382) CO2 (BEAKER) (test 25 meq/L 22-29 code = 355) BLOOD UREA NITROGEN 18 mg/dL 7-21 (BEAKER) (test code = 354) CREATININE (BEAKER) 0.81 mg/dL 0.57-1.25 (test code = 358) GLUCOSE RANDOM 180 mg/dL 70-105 H (BEAKER) (test code = 652) CALCIUM (BEAKER) 9.4 mg/dL 8.4-10.2 (test code = 697) EGFR (BEAKER) (test 94 mL/min/1.73 ESTIMA CEDRICK GFR IS code = 1092) sq m NOT ACCURATE CREATININE CLEARANCE IN PREDICTING GLOMERULAR FILTRATION RATE . ESTIMATED GFR I S NOT APPLICABLE FOR DIALYSIS PATIEN TS. CBC (HEMOGRAM ONLY)2018-11-12 05:08:00 Test Item Value Reference Range Interpretation Comments WHITE BLOOD CELL COUNT (BEAKER) 13.4 K/ L 3.5-10.5 H (test code = 775) RED BLOOD CELL COUNT (BEAKER) 3.94 M/ L 4.63-6.08 L (test code = 761) HEMOGLOBIN (BEAKER) (test code = 11.3 GM/DL 13.7-17.5 L 410) HEMATOCRIT (BEAKER) (test code = 33.9 % 40.1-51.0 L 411) MEAN CORPUSCULAR VOLUME (BEAKER) 86.0 fL 79.0-92.2 (test code = 753) MEAN CORPUSCULAR HEMOGLOBIN 28.7 pg 25.7-32.2 (BEAKER) (test code = 751) MEAN CORPUSCULAR HEMOGLOBIN CONC 33.3 GM/DL 32.3-36.5 (BEAKER) (test code = 752) RED CELL DISTRIBUTION WIDTH 14.6 % 11.6-14.4 H (BEAKER) (test code = 412) PLATELET COUNT (BEAKER) (test 298 K/CU MM 150-450 code = 756) MEAN PLATELET VOLUME (BEAKER) 10.1 fL 9.4-12.4 (test code = 754) NUCLEATED RED BLOOD CELLS 0 /100 WBC 0-0 (BEAKER) (test code = 413) POCT-GLUCOSE [id number] 00:14:00 Test Item Value Reference Range Interpretation Comments POC-GLUCOSE METER 199 mg/dL 70-110 H TESTED AT [place] [address] ([facility]) (test code = KWASI Rowe [facility] 1538) [address] POCT-GLUCOSE [id number] 17:13:00 Test Item Value Reference Range Interpretation Comments POC-GLUCOSE METER 221 mg/dL 70-110 H TESTED AT [place] [address] ([facility]) (test [facility] = [facility] 1538) [address] POCT-GLUCOSE [id number] 12:47:00 Test Item Value Reference Range Interpretation Comments POC-GLUCOSE METER 184 mg/dL 70-110 H TESTED AT [place] [address] ([facility]) (test code = [facility] 1538) [id number] BASIC METABOLIC [id number] 06:22:00 Test Item Value Reference Range Interpretation Comments SODIUM (BEAKER) 137 meq/L 136-145 (test code = 381) POTASSIUM (BEAKER) 4.3 meq/L 3.5-5.1 (test code = 379) CHLORIDE (BEAKER) 103 meq/L 98-107 (test code = 382) CO2 (BEAKER) (test 25 meq/L 22-29 code = 355) BLOOD UREA NITROGEN 22 mg/dL 7-21 H (BEAKER) (test code = 354) CREATININE (BEAKER) 0.82 mg/dL 0.57-1.25 (test code = 358) GLUCOSE RANDOM 168 mg/dL 70-105 H (BEAKER) (test code = 652) CALCIUM (BEAKER) 9.3 mg/dL 8.4-10.2 (test code = 697) EGFR (BEAKER) (test 93 mL/min/1.73 ESTIMA CEDRICK GFR IS code = 1092) sq m NOT ACCURATE CREATININE CLEARANCE IN PREDICTING GLOMERULAR FILTRATION RATE . ESTIMATED GFR I S NOT APPLICABLE FOR DIALYSIS PATIEN TS. POCT-GLUCOSE [id number] 06:07:00 Test Item Value Reference Range Interpretation Comments POC-GLUCOSE METER 183 mg/dL 70-110 H TESTED AT [facility] 6720 (AKER) (test code = [place] 1538) [id number] CBC (HEMOGRAM ONLY)2018-11-11 05:13:00 Test Item Value Reference Range Interpretation Comments WHITE BLOOD CELL COUNT (BEAKER) 15.3 K/ L 3.5-10.5 H (test code = 775) RED BLOOD CELL COUNT (BEAKER) 4.19 M/ L 4.63-6.08 L (test code = 761) HEMOGLOBIN (BEAKER) (test code = 12.0 GM/DL 13.7-17.5 L 410) HEMATOCRIT (BEAKER) (test code = 36.2 % 40.1-51.0 L 411) MEAN CORPUSCULAR VOLUME (BEAKER) 86.4 fL 79.0-92.2 (test code = 753) MEAN CORPUSCULAR HEMOGLOBIN 28.6 pg 25.7-32.2 (BEAKER) (test code = 751) MEAN CORPUSCULAR HEMOGLOBIN CONC 33.1 GM/DL 32.3-36.5 (BEAKER) (test code = 752) RED CELL DISTRIBUTION WIDTH 14.7 % 11.6-14.4 H (BEAKER) (test code = 412) PLATELET COUNT (BEAKER) (test 287 K/CU MM 150-450 code = 756) MEAN PLATELET VOLUME (BEAKER) 10.5 fL 9.4-12.4 (test code = 754) NUCLEATED RED BLOOD CELLS 0 /100 WBC 0-0 (BEAKER) (test code = 413) POCT-GLUCOSE [id number] 00:14:00 Test Item Value Reference Range Interpretation Comments POC-GLUCOSE METER 176 mg/dL 70-110 H TESTED AT [place] [address] (BEAKER) (test code = [facility] 1538) [address] POCT-GLUCOSE [id number] 17:43:00 Test Item Value Reference Range Interpretation Comments POC-GLUCOSE METER 195 mg/dL 70-110 H TESTED [place] [address] ([facility] (test code = [facility] 1538) [id number] POCT-GLUCOSE [id number] 12:08:00 Test Item Value Reference Range Interpretation Comments POC-GLUCOSE METER 170 mg/dL 70-110 H TESTED AT [place] [address] ([facility] (test code = [facility] 1538) [address] BASIC METABOLIC [id number] 07:13:00 Test Item Value Reference Range Interpretation Comments SODIUM (BEAKER) 135 meq/L 136-145 L (test code = 381) POTASSIUM (BEAKER) 4.0 meq/L 3.5-5.1 (test code = 379) CHLORIDE (BEAKER) 105 meq/L 98-107 (test code = 382) CO2 (BEAKER) (test 22 meq/L 22-29 code = 355) BLOOD UREA NITROGEN 18 mg/dL 7-21 (BEAKER) (test code = 354) CREATININE (BEAKER) 0.82 mg/dL 0.57-1.25 (test code = 358) GLUCOSE RANDOM 163 mg/dL 70-105 H (BEAKER) (test code = 652) CALCIUM (BEAKER) 9.4 mg/dL 8.4-10.2 (test code = 697) EGFR (BEAKER) (test 93 mL/min/1.73 ESTIMA CEDRICK GFR IS code = 1092) sq m NOT ACCURATE CREATININE CLEARANCE IN PREDICTING GLOMERULAR FILTRATION RATE . ESTIMATED GFR I S NOT APPLICABLE FOR DIALYSIS PATIEN TS. POCT-GLUCOSE [id number] 06:08:00 Test Item Value Reference Range Interpretation Comments POC-GLUCOSE METER 178 mg/dL 70-110 H TESTED [place] [address] ([facility] (test code = [facility] 1538) [id number] CBC (HEMOGRAM ONLY)2018 05:55:00 Test Item Value Reference Range Interpretation Comments WHITE BLOOD CELL COUNT (BEAKER) 15.6 K/ L 3.5-10.5 H (test code = 775) RED BLOOD CELL COUNT (BEAKER) 4.18 M/ L 4.63-6.08 L (test code = 761) HEMOGLOBIN (BEAKER) (test code = 11.9 GM/DL 13.7-17.5 L 410) HEMATOCRIT (BEAKER) (test code = 35.8 % 40.1-51.0 L 411) MEAN CORPUSCULAR VOLUME (BEAKER) 85.6 fL 79.0-92.2 (test code = 753) MEAN CORPUSCULAR HEMOGLOBIN 28.5 pg 25.7-32.2 (BEAKER) (test code = 751) MEAN CORPUSCULAR HEMOGLOBIN CONC 33.2 GM/DL 32.3-36.5 (BEAKER) (test code = 752) RED CELL DISTRIBUTION WIDTH 14.6 % 11.6-14.4 H (BEAKER) (test code = 412) PLATELET COUNT (BEAKER) (test 292 K/CU MM 150-450 code = 756) MEAN PLATELET VOLUME (BEAKER) 10.5 fL 9.4-12.4 (test code = 754) NUCLEATED RED BLOOD CELLS 0 /100 WBC 0-0 (BEAKER) (test code = 413) POCT-GLUCOSE [id number] 01:11:00 Test Item Value Reference Range Interpretation Comments POC-GLUCOSE METER 160 mg/dL 70-110 H TESTED AT [place] [address] ([facility]) (test code = [facility] [place] [facility] 1538) [id number] POCT-GLUCOSE [id number] 12:18:00 Test Item Value Reference Range Interpretation Comments POC-GLUCOSE METER 147 mg/dL 70-110 H TESTED AT [place] [address] ([facility]) (test code = [facility] 1538) [address]255 POCT-GLUCOSE [id number] 08:20:00 Test Item Value Reference Range Interpretation Comments POC-GLUCOSE METER 155 mg/dL 70-110 H TESTED AT [place] [address] ([facility]) (test code = [facility] 1538) [address] BASIC METABOLIC [id number] 06:07:00 Test Item Value Reference Range Interpretation Comments SODIUM (BEAKER) 135 meq/L 136-145 L (test code = 381) POTASSIUM (BEAKER) 4.3 meq/L 3.5-5.1 (test code = 379) CHLORIDE (BEAKER) 106 meq/L 98-107 (test code = 382) CO2 (BEAKER) (test 20 meq/L 22-29 L code = 355) BLOOD UREA NITROGEN 18 mg/dL 7-21 (BEAKER) (test code = 354) CREATININE (BEAKER) 0.82 mg/dL 0.57-1.25 (test code = 358) GLUCOSE RANDOM 161 mg/dL 70-105 H (BEAKER) (test code = 652) CALCIUM (BEAKER) 9.1 mg/dL 8.4-10.2 (test code = 697) EGFR (BEAKER) (test 93 mL/min/1.73 ESTIMA CEDRICK GFR IS code = 1092) sq m NOT ACCURATE CREATININE CLEARANCE IN PREDICTING GLOMERULAR FILTRATION RATE . ESTIMATED GFR I S NOT APPLICABLE FOR DIALYSIS PATIEN TS. CBC (HEMOGRAM ONLY)2018-11-09 05:28:00 Test Item Value Reference Range Interpretation Comments WHITE BLOOD CELL COUNT (BEAKER) 12.9 K/ L 3.5-10.5 H (test code = 775) RED BLOOD CELL COUNT (BEAKER) 3.99 M/ L 4.63-6.08 L (test code = 761) HEMOGLOBIN (BEAKER) (test code = 11.5 GM/DL 13.7-17.5 L 410) HEMATOCRIT (BEAKER) (test code = 33.8 % 40.1-51.0 L 411) MEAN CORPUSCULAR VOLUME (BEAKER) 84.7 fL 79.0-92.2 (test code = 753) MEAN CORPUSCULAR HEMOGLOBIN 28.8 pg 25.7-32.2 (BEAKER) (test code = 751) MEAN CORPUSCULAR HEMOGLOBIN CONC 34.0 GM/DL 32.3-36.5 (BEAKER) (test code = 752) RED CELL DISTRIBUTION WIDTH 14.3 % 11.6-14.4 (BEAKER) (test code = 412) PLATELET COUNT (BEAKER) (test 252 K/CU MM 150-450 code = 756) MEAN PLATELET VOLUME (BEAKER) 10.0 fL 9.4-12.4 (test code = 754) NUCLEATED RED BLOOD CELLS 0 /100 WBC 0-0 (AKER) (test code = 413) POCT-GLUCOSE [id number] 23:57:00 Test Item Value Reference Range Interpretation Comments POC-GLUCOSE METER 140 mg/dL 70-110 H TESTED AT [place] [address] ([facility]) (test [facility] = [facility] 1538) [address] POCT-GLUCOSE [id number] 17:30:00 Test Item Value Reference Range Interpretation Comments POC-GLUCOSE METER 127 mg/dL 70-110 H TESTED AT [place] [address] ([facility]) (test code = [facility] 1538) [id number] POCT-GLUCOSE [id number] 11:54:00 Test Item Value Reference Range Interpretation Comments POC-GLUCOSE METER 133 mg/dL 70-110 H TESTED AT [place] [address] ([facility]) (test code = [facility] 1538) [id number] POCT-GLUCOSE [id number] 06:37:00 Test Item Value Reference Range Interpretation Comments POC-GLUCOSE METER 110 mg/dL 70-110 TESTED AT [place] [address] ([facility]) (test code = [facility] 1538) [address] BASIC METABOLIC [id number] 06:28:00 Test Item Value Reference Range Interpretation Comments SODIUM (BEAKER) 136 meq/L 136-145 (test code = 381) POTASSIUM (BEAKER) 4.4 meq/L 3.5-5.1 (test code = 379) CHLORIDE (BEAKER) 110 meq/L 98-107 H (test code = 382) CO2 (BEAKER) (test 20 meq/L 22-29 L code = 355) BLOOD UREA NITROGEN 15 mg/dL 7-21 (BEAKER) (test code = 354) CREATININE (BEAKER) 0.74 mg/dL 0.57-1.25 (test code = 358) GLUCOSE RANDOM 112 mg/dL 70-105 H (BEAKER) (test code = 652) CALCIUM (BEAKER) 8.5 mg/dL 8.4-10.2 (test code = 697) EGFR (BEAKER) (test 105 mL/min/1.73 ESTIM ATED GFR IS code = 1092) sq m NOT ACCURATE CREATININE CLEARANCE IN PREDICTING GLOMERULAR FILTRATION RATE . ESTIMATED GFR I S NOT APPLICABLE FOR DIALYSIS PATIEN TS. CBC (HEMOGRAM ONLY)2018-11-08 05:44:00 Test Item Value Reference Range Interpretation Comments WHITE BLOOD CELL COUNT (BEAKER) 11.0 K/ L 3.5-10.5 H (test code = 775) RED BLOOD CELL COUNT (BEAKER) 3.99 M/ L 4.63-6.08 L (test code = 761) HEMOGLOBIN (BEAKER) (test code = 11.5 GM/DL 13.7-17.5 L 410) HEMATOCRIT (BEAKER) (test code = 34.2 % 40.1-51.0 L 411) MEAN CORPUSCULAR VOLUME (BEAKER) 85.7 fL 79.0-92.2 (test code = 753) MEAN CORPUSCULAR HEMOGLOBIN 28.8 pg 25.7-32.2 (BEAKER) (test code = 751) MEAN CORPUSCULAR HEMOGLOBIN CONC 33.6 GM/DL 32.3-36.5 (BEAKER) (test code = 752) RED CELL DISTRIBUTION WIDTH 14.6 % 11.6-14.4 H (BEAKER) (test code = 412) PLATELET COUNT (BEAKER) (test 256 K/CU MM 150-450 code = 756) MEAN PLATELET VOLUME (BEAKER) 10.4 fL 9.4-12.4 (test code = 754) NUCLEATED RED BLOOD CELLS 0 /100 WBC 0-0 (BEAKER) (test code = 413) POCT-GLUCOSE [id number] 01:21:00 Test Item Value Reference Range Interpretation Comments POC-GLUCOSE METER 131 mg/dL 70-110 H TESTED AT [place] [address] ([facility]) (test code = [place] 1538) [id number] POCT-GLUCOSE [id number] 18:16:00 Test Item Value Reference Range Interpretation Comments POC-GLUCOSE METER 159 mg/dL 70-110 H TESTED AT [place] [address] ([facility]) (test code = [place] 1538) [id number] 15:58:00 Test Item Value Reference Range Interpretation Comments ACTIVATED CLOTTING TIME 252 sec TEST ED AT [place] [address] ([facility]) (test code = [place] 441) [id number] POCT-GLUCOSE [id number] 13:49:00 Test Item Value Reference Range Interpretation Comments POC-GLUCOSE METER 155 mg/dL 70-110 H TESTED AT [facility] 67[facility] ([facility]) (test code = [place] 1538) [address] POCT-P2Y12 PLATELET [id number] 12:44:00 Test Item Value Reference Range Interpretation Comments POC-P2Y12 PLATELET AGG ([facility]) (test 83 PRU code = 2303) RANGE INFORMATION: PRU reference range is 194-418. Post Drug Results: Lower PRU levels are associated with expected antiplatelet effect. Values may be below the stated reference range above. The post-drug PRU values reported in the [employer] P2Y12 package insert are [id number].CT, BRAIN, WITHOUT [id number] 09:26:[address], BRAIN, WITHOUT CONTRAST CLINICAL INDICATION: Neuro deficit(s), subacuteafter starting DAPT in setting of acute large territory stroke - only to be done on 4/10 AM COMPARISON: November 01, 2018 TECHNIQUE: Noncontrast axial CT imaging of the brain and skull. DOSE RE DUCTION: Dose modulation, iterative reconstruction, and/or weight-based adjustment of the mA/kV was utilized to reduce the radiation dose to as low as reasonably achievable. 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 There is a moderate high degree of edema in the affected sulci cr eating hyperattenuation along the sulcal surfaces. Appearance is [...] MDReport Verified Date/Time: 11/07/2018 09:26:55 Reading Location: [facility] C0[facility] Neuro Reading Room POCT-GLUCOSE [id number] 06:41:00 Test Item Value Reference Range Interpretation Comments POC-GLUCOSE METER 186 mg/dL 70-110 H TESTED AT [facility] 6720 (BEAKER) (test code = [place] 1538) [id number] POCT-P2Y12 PLATELET [id number] 06:16:00 Test Item Value Reference Range Interpretation Comments POC-P2Y12 PLATELET AGG (BEAKER) (test 247 PRU code = 2303) RANGE INFORMATION: PRU reference range is 194-418. Post Drug Results: Lower PRU levels are associated with expected antiplatelet effect. Values may be below the stated reference range above. The post-drug PRU values reported in the [employer]Now P2Y12 package insert are [id number].BASIC METABOLIC [id number] 06:01:00 Test Item Value Reference Range Interpretation Comments SODIUM (BEAKER) 134 meq/L 136-145 L (test code = 381) POTASSIUM (BEAKER) 4.3 meq/L 3.5-5.1 (test code = 379) CHLORIDE (BEAKER) 108 meq/L 98-107 H (test code = 382) CO2 (BEAKER) (test 19 meq/L 22-29 L code = 355) BLOOD UREA NITROGEN 15 mg/dL 7-21 (BEAKER) (test code = 354) CREATININE (BEAKER) 0.82 mg/dL 0.57-1.25 (test code = 358) GLUCOSE RANDOM 200 mg/dL 70-105 H (BEAKER) (test code = 652) CALCIUM (BEAKER) 9.1 mg/dL 8.4-10.2 (test code = 697) EGFR (BEAKER) (test 93 mL/min/1.73 ESTIMA CEDRICK GFR IS code = 1092) sq m NOT ACCURATE CREATININE CLEARANCE IN PREDICTING GLOMERULAR FILTRATION RATE . ESTIMATED GFR I S NOT APPLICABLE FOR DIALYSIS PATIEN TS. CBC (HEMOGRAM ONLY)2018-11-07 05:38:00 Test Item Value Reference Range Interpretation Comments WHITE BLOOD CELL COUNT (BEAKER) 9.3 K/ L 3.5-10.5 (test code = 775) RED BLOOD CELL COUNT (BEAKER) 4.28 M/ L 4.63-6.08 L (test code = 761) HEMOGLOBIN (BEAKER) (test code = 12.3 GM/DL 13.7-17.5 L 410) HEMATOCRIT (BEAKER) (test code = 37.2 % 40.1-51.0 L 411) MEAN CORPUSCULAR VOLUME (BEAKER) 86.9 fL 79.0-92.2 (test code = 753) MEAN CORPUSCULAR HEMOGLOBIN 28.7 pg 25.7-32.2 (BEAKER) (test code = 751) MEAN CORPUSCULAR HEMOGLOBIN CONC 33.1 GM/DL 32.3-36.5 (BEAKER) (test code = 752) RED CELL DISTRIBUTION WIDTH 14.6 % 11.6-14.4 H (BEAKER) (test code = 412) PLATELET COUNT (BEAKER) (test 218 K/CU MM 150-450 code = 756) MEAN PLATELET VOLUME (BEAKER) 10.5 fL 9.4-12.4 (test code = 754) NUCLEATED RED BLOOD CELLS 0 /100 WBC 0-0 (BEAKER) (test code = 413) POCT-GLUCOSE [id number] 23:34:00 Test Item Value Reference Range Interpretation Comments POC-GLUCOSE METER 173 mg/dL 70-110 H TESTED AT [facility] 6720 ([facility]) (test code = KWASI [place] 1538) [address] RAD, ABDOMEN/KUB, 1 VIEW [id number] 19:42:00Reason for exam:->verify corpak placementShould this be performed at the bedside?->YesFINAL REPORT EXAMINATION: SUPINE ABDOMEN CLINICAL INDICATION: FEEDING TUBE PL ACEMENT IMPRESSION: Tip of the feeding tube projects over the right upper abdomen in the region of the gastric pylorus. Bowel gas pattern is overall nonspecific. Moderate to large volume of inspissatedstool is noted in the colon which may reflect a component of dysmotility with constipation. Signed: Shruthi Neumann Verified Date/Time: 11/06/2018 19:42:40 Reading Location: [address] Reading Room POCT-GLUCOSE [id number] 18:59:00 Test Item Value Reference Range Interpretation Comments POC-GLUCOSE METER 143 mg/dL 70-110 H TESTED AT [facility] 6720 (BEAKER) (test code = [place] 1538) [id number] POCT-GLUCOSE [id number] 14:46:00 Test Item Value Reference Range Interpretation Comments POC-GLUCOSE METER 169 mg/dL 70-110 H TESTED AT [facility] 6720 (BEAKER) (test code = [place] 1538) [id number] FL, ESOPH, SWALLOW FUNCTION, WITH CINE OR [id number] 14:10:00Reason for exam:->dysphagiaFINAL REPORT Modified barium swallow [...] for further details. Signed: Everton Garces MDReport Ve rified Date/Time: 11/06/2018 14:10:54 Reading Location: [address] Consult Reading Room [facility] METABOLIC [id number] 06:28:00 Test Item Value Reference Range Interpretation Comments SODIUM (BEAKER) 136 meq/L 136-145 (test code = 381) POTASSIUM (BEAKER) 4.1 meq/L 3.5-5.1 (test code = 379) CHLORIDE (BEAKER) 106 meq/L 98-107 (test code = 382) CO2 (BEAKER) (test 23 meq/L 22-29 code = 355) BLOOD UREA NITROGEN 17 mg/dL 7-21 (BEAKER) (test code = 354) CREATININE (BEAKER) 0.77 mg/dL 0.57-1.25 (test code = 358) GLUCOSE RANDOM 215 mg/dL 70-105 H (BEAKER) (test code = 652) CALCIUM (BEAKER) 8.9 mg/dL 8.4-10.2 (test code = 697) EGFR (BEAKER) (test 100 mL/min/1.73 ESTIM ATED GFR IS code = 1092) sq m NOT ACCURATE CREATININE CLEARANCE IN PREDICTING GLOMERULAR FILTRATION RATE . ESTIMATED GFR I S NOT APPLICABLE FOR DIALYSIS PATIEN TS. POCT-GLUCOSE [id number] 06:19:00 Test Item Value Reference Range Interpretation Comments POC-GLUCOSE METER 216 mg/dL 70-110 H TESTED AT [place] [address] ([facility]) (test code = KWASI Row[place] 1538) [id number] CBC (HEMOGRAM ONLY)2018-11-06 05:54:00 Test Item Value Reference Range Interpretation Comments WHITE BLOOD CELL COUNT (BEAKER) 8.1 K/ L 3.5-10.5 (test code = 775) RED BLOOD CELL COUNT (BEAKER) 4.33 M/ L 4.63-6.08 L (test code = 761) HEMOGLOBIN (BEAKER) (test code = 12.5 GM/DL 13.7-17.5 L 410) HEMATOCRIT (BEAKER) (test code = 37.2 % 40.1-51.0 L 411) MEAN CORPUSCULAR VOLUME (BEAKER) 85.9 fL 79.0-92.2 (test code = 753) MEAN CORPUSCULAR HEMOGLOBIN 28.9 pg 25.7-32.2 (BEAKER) (test code = 751) MEAN CORPUSCULAR HEMOGLOBIN CONC 33.6 GM/DL 32.3-36.5 (BEAKER) (test code = 752) RED CELL DISTRIBUTION WIDTH 14.6 % 11.6-14.4 H (BEAKER) (test code = 412) PLATELET COUNT (BEAKER) (test 215 K/CU MM 150-450 code = 756) MEAN PLATELET VOLUME (BEAKER) 10.7 fL 9.4-12.4 (test code = 754) NUCLEATED RED BLOOD CELLS 0 /100 WBC 0-0 (BEAKER) (test code = 413) POCT-GLUCOSE [id number] 01:34:00 Test Item Value Reference Range Interpretation Comments POC-GLUCOSE METER 175 mg/dL 70-110 H TESTED AT [place] [address] ([facility]) (test code = KWASI [place] 1538) [address] POCT-GLUCOSE [id number] 19:12:00 Test Item Value Reference Range Interpretation Comments POC-GLUCOSE METER 150 mg/dL 70-110 H TESTED AT [facility] 6720 [facility] (test code = KWASI [place] 1538) [address] POCT-GLUCOSE [id number] 11:28:00 Test Item Value Reference Range Interpretation Comments POC-GLUCOSE METER 169 mg/dL 70-110 H TESTED AT [facility] 6720 ([facility] (test code = [facility] [place] 1538) [address] BASIC METABOLIC [id number] 07:23:00 Test Item Value Reference Range Interpretation Comments SODIUM (BEAKER) 140 meq/L 136-145 (test code = 381) POTASSIUM (BEAKER) 4.1 meq/L 3.5-5.1 (test code = 379) CHLORIDE (BEAKER) 105 meq/L 98-107 (test code = 382) CO2 (BEAKER) (test 27 meq/L 22-29 code = 355) BLOOD UREA NITROGEN 15 mg/dL 7-21 (BEAKER) (test code = 354) CREATININE (BEAKER) 0.78 mg/dL 0.57-1.25 (test code = 358) GLUCOSE RANDOM 156 mg/dL 70-105 H (BEAKER) (test code = 652) CALCIUM (BEAKER) 9.3 mg/dL 8.4-10.2 (test code = 697) EGFR (BEAKER) (test 99 mL/min/1.73 ESTIMA CEDRICK GFR IS code = 1092) sq m NOT ACCURATE CREATININE CLEARANCE IN PREDICTING GLOMERULAR FILTRATION RATE . ESTIMATED GFR I S NOT APPLICABLE FOR DIALYSIS PATIEN TS. POCT-GLUCOSE [id number] 06:37:00 Test Item Value Reference Range Interpretation Comments POC-GLUCOSE METER 158 mg/dL 70-110 H TESTED AT [facility] 6720 (BEAKER) (test code = [facility] [place] 1538) [id number] 05:42:00 Test Item Value Reference Range Interpretation Comments PROTIME (BEAKER) (test code = 12.9 seconds 11.7-14.7 759) INR (BEAKER) (test code = 370) 1.0 <=5.9 PARTIAL THROMBOPLASTIN TIME 35.4 seconds 22.5-36.0 (BEAKER) (test code = 760) RECOMMENDED COUMADIN/WARFARIN INR THERAPY RANGESSTANDARD DOSE: 2.0 - 3.0 Includes: PROPHYLAXIS forvenous thrombosis, systemic embolization; TREATMENT for venous thrombosis and/or pulmonary embolus.HIGH RISK: Target INR is 2.5-3.5 for patients with mechanical heart valves.CBC (HEMOGRAM ONLY)2018-11-05 05:29:00 Test Item Value Reference Range Interpretation Comments WHITE BLOOD CELL COUNT (BEAKER) 13.2 K/ L 3.5-10.5 H (test code = 775) RED BLOOD CELL COUNT (BEAKER) 4.77 M/ L 4.63-6.08 (test code = 761) HEMOGLOBIN (BEAKER) (test code = 13.6 GM/DL 13.7-17.5 L 410) HEMATOCRIT (BEAKER) (test code = 41.6 % 40.1-51.0 411) MEAN CORPUSCULAR VOLUME (BEAKER) 87.2 fL 79.0-92.2 (test code = 753) MEAN CORPUSCULAR HEMOGLOBIN 28.5 pg 25.7-32.2 (BEAKER) (test code = 751) MEAN CORPUSCULAR HEMOGLOBIN CONC 32.7 GM/DL 32.3-36.5 (BEAKER) (test code = 752) RED CELL DISTRIBUTION WIDTH 14.8 % 11.6-14.4 H (BEAKER) (test code = 412) PLATELET COUNT (BEAKER) (test 218 K/CU MM 150-450 code = 756) MEAN PLATELET VOLUME (BEAKER) 11.6 fL 9.4-12.4 (test code = 754) NUCLEATED RED BLOOD CELLS 0 /100 WBC 0-0 (BEAKER) (test code = 413) POCT-GLUCOSE [id number] 23:19:00 Test Item Value Reference Range Interpretation Comments POC-GLUCOSE METER 231 mg/dL 70-110 H TESTED AT [facility] 6720 ([facility]) (test code = [place] 1538) [id number] POCT-GLUCOSE [id number] 18:05:00 Test Item Value Reference Range Interpretation Comments POC-GLUCOSE METER 245 mg/dL 70-110 H TESTED AT [facility] 6720 ([facility]) (test code = [place] 1538) [address] POCT-GLUCOSE [id number] 12:49:00 Test Item Value Reference Range Interpretation Comments POC-GLUCOSE METER 197 mg/dL 70-110 H TESTED AT [facility] 6720 (BEAKER) (test code = [place] 1536) [address] BASIC METABOLIC [id number] 09:31:00 Test Item Value Reference Range Interpretation Comments SODIUM (BEAKER) 137 meq/L 136-145 (test code = 381) POTASSIUM (BEAKER) 4.2 meq/L 3.5-5.1 (test code = 379) CHLORIDE (BEAKER) 104 meq/L 98-107 (test code = 382) CO2 (BEAKER) (test 26 meq/L 22-29 code = 355) BLOOD UREA NITROGEN 20 mg/dL 7-21 (BEAKER) (test code = 354) CREATININE (BEAKER) 0.81 mg/dL 0.57-1.25 (test code = 358) GLUCOSE RANDOM 199 mg/dL 70-105 H (BEAKER) (test code = 652) CALCIUM (BEAKER) 9.0 mg/dL 8.4-10.2 (test code = 697) EGFR (BEAKER) (test 94 mL/min/1.73 ESTIMA CEDRICK GFR IS code = 1092) sq m NOT ACCURATE CREATININE CLEARANCE IN PREDICTING GLOMERULAR FILTRATION RATE . ESTIMATED GFR I S NOT APPLICABLE FOR DIALYSIS PATIEN TS. CBC (HEMOGRAM ONLY)2018-11-04 06:48:00 Test Item Value Reference Range Interpretation Comments WHITE BLOOD CELL COUNT (BEAKER) 15.7 K/ L 3.5-10.5 H (test code = 775) RED BLOOD CELL COUNT (BEAKER) 4.69 M/ L 4.63-6.08 (test code = 761) HEMOGLOBIN (BEAKER) (test code = 13.4 GM/DL 13.7-17.5 L 410) HEMATOCRIT (BEAKER) (test code = 41.3 % 40.1-51.0 411) MEAN CORPUSCULAR VOLUME (BEAKER) 88.1 fL 79.0-92.2 (test code = 753) MEAN CORPUSCULAR HEMOGLOBIN 28.6 pg 25.7-32.2 (BEAKER) (test code = 751) MEAN CORPUSCULAR HEMOGLOBIN CONC 32.4 GM/DL 32.3-36.5 (BEAKER) (test code = 752) RED CELL DISTRIBUTION WIDTH 15.1 % 11.6-14.4 H (BEAKER) (test code = 412) PLATELET COUNT (BEAKER) (test 180 K/CU MM 150-450 code = 756) MEAN PLATELET VOLUME (BEAKER) 11.7 fL 9.4-12.4 (test code = 754) NUCLEATED RED BLOOD CELLS 0 /100 WBC 0-0 (BEAKER) (test code = 413) POCT-GLUCOSE [id number] 23:44:00 Test Item Value Reference Range Interpretation Comments POC-GLUCOSE METER 187 mg/dL 70-110 H TESTED AT [place] [address] ([facility]) (test code = [facility] [place] [facility] 1538) [id number] POCT-GLUCOSE [id number] 17:30:00 Test Item Value Reference Range Interpretation Comments POC-GLUCOSE METER 231 mg/dL 70-110 H TESTED AT [place] [address] ([facility]) (test code = [facility] [place] [facility] 1538) [address] POCT-GLUCOSE [id number] 12:40:00 Test Item Value Reference Range Interpretation Comments POC-GLUCOSE METER 205 mg/dL 70-110 H TESTED AT [place] [address] ([facility]) (test code = [facility] 1538) [address] BASIC METABOLIC [id number] 08:48:00 Test Item Value Reference Range Interpretation Comments SODIUM (BEAKER) 138 meq/L 136-145 (test code = 381) POTASSIUM (BEAKER) 3.9 meq/L 3.5-5.1 (test code = 379) CHLORIDE (BEAKER) 107 meq/L 98-107 (test code = 382) CO2 (BEAKER) (test 24 meq/L 22-29 code = 355) BLOOD UREA NITROGEN 19 mg/dL 7-21 (BEAKER) (test code = 354) CREATININE (BEAKER) 0.80 mg/dL 0.57-1.25 (test code = 358) GLUCOSE RANDOM 149 mg/dL 70-105 H (BEAKER) (test code = 652) CALCIUM (BEAKER) 8.8 mg/dL 8.4-10.2 (test code = 697) EGFR (BEAKER) (test 96 mL/min/1.73 ESTIMA CEDRCIK GFR IS code = 1092) sq m NOT ACCURATE CREATININE CLEARANCE IN PREDICTING GLOMERULAR FILTRATION RATE . ESTIMATED GFR I S NOT APPLICABLE FOR DIALYSIS PATIEN TS. POCT-GLUCOSE [id number] 06:30:00 Test Item Value Reference Range Interpretation Comments POC-GLUCOSE METER 153 mg/dL 70-110 H TESTED AT [place] [address] ([facility]) (test code = KWASI [place] 1538) [id number] CBC (HEMOGRAM ONLY)2018-11-03 05:19:00 Test Item Value Reference Range Interpretation Comments WHITE BLOOD CELL COUNT (BEAKER) 12.3 K/ L 3.5-10.5 H (test code = 775) RED BLOOD CELL COUNT (BEAKER) 4.24 M/ L 4.63-6.08 L (test code = 761) HEMOGLOBIN (BEAKER) (test code = 12.1 GM/DL 13.7-17.5 L 410) HEMATOCRIT (BEAKER) (test code = 37.0 % 40.1-51.0 L 411) MEAN CORPUSCULAR VOLUME (BEAKER) 87.3 fL 79.0-92.2 (test code = 753) MEAN CORPUSCULAR HEMOGLOBIN 28.5 pg 25.7-32.2 (BEAKER) (test code = 751) MEAN CORPUSCULAR HEMOGLOBIN CONC 32.7 GM/DL 32.3-36.5 (BEAKER) (test code = 752) RED CELL DISTRIBUTION WIDTH 14.8 % 11.6-14.4 H (BEAKER) (test code = 412) PLATELET COUNT (BEAKER) (test 175 K/CU MM 150-450 code = 756) MEAN PLATELET VOLUME (BEAKER) 11.3 fL 9.4-12.4 (test code = 754) NUCLEATED RED BLOOD CELLS 0 /100 WBC 0-0 (BEAKER) (test code = 413) POCT-GLUCOSE [id number] 23:20:00 Test Item Value Reference Range Interpretation Comments POC-GLUCOSE METER 133 mg/dL 70-110 H TESTED AT [place] [address] ([facility]) (test code = [facility] [place] [facility] 1538) [id number] POCT-GLUCOSE [id number] 17:27:00 Test Item Value Reference Range Interpretation Comments POC-GLUCOSE METER 107 mg/dL 70-110 TESTED AT [place] [address] ([facility]) (test code = [facility] [place] 1538) [address] POCT-GLUCOSE [id number] 09:07:00 Test Item Value Reference Range Interpretation Comments POC-GLUCOSE METER 101 mg/dL 70-110 TESTED AT [facility] 6720 (BEAKER) (test code = [place] 1538) [address] TROPONIN [id number] 07:02:00 Test Item Value Reference Range Interpretation Comments TROPONIN I (BEAKER) (test code = 0.04 ng/mL 0.00-0.03 H 397) Troponin I (TnI) levels must be interpreted [...] acute neurological disease, and persistent tachyarrhythmia.BASIC METABOLIC [id number] 06:55:00 Test Item Value Reference Range Interpretation Comments SODIUM (BEAKER) 142 meq/L 136-145 (test code = 381) POTASSIUM (BEAKER) 3.7 meq/L 3.5-5.1 (test code = 379) CHLORIDE (BEAKER) 110 meq/L 98-107 H (test code = 382) CO2 (BEAKER) (test 23 meq/L 22-29 code = 355) BLOOD UREA NITROGEN 17 mg/dL 7-21 (BEAKER) (test code = 354) CREATININE (BEAKER) 0.77 mg/dL 0.57-1.25 (test code = 358) GLUCOSE RANDOM 114 mg/dL 70-105 H (BEAKER) (test code = 652) CALCIUM (BEAKER) 9.1 mg/dL 8.4-10.2 (test code = 697) EGFR (BEAKER) (test 100 mL/min/1.73 ESTIM ATED GFR IS code = 1092) sq m NOT ACCURATE CREATININE CLEARANCE IN PREDICTING GLOMERULAR FILTRATION RATE . ESTIMATED GFR I S NOT APPLICABLE FOR DIALYSIS PATIEN TS. B-TYPE NATRIURETIC FACTOR (BNP)2018-11-02 06:46:00 Test Item Value Reference Range Interpretation Comments B-TYPE NATRIURETIC PEPTIDE (BEAKER) 722 pg/mL 0-100 H (test code = 700) PROTHROMBIN [id number] 06:35:00 Test Item Value Reference Range Interpretation Comments PROTIME (BEAKER) (test code = 14.3 seconds 11.7-14.7 759) INR (BEAKER) (test code = 370) 1.1 <=5.9 RECOMMENDED COUMADIN/WARFARIN INR THERAPY RANGESSTANDARD DOSE: 2.0 - 3.0 Includes: PROPHYLAXIS forvenous thrombosis, systemic embolization; TREATMENT for venous thrombosis and/or pulmonary embolus.HIGH RISK: Target INR is 2.5-3.5 for patients with mechanical heart valves.CBC (HEMOGRAM ONLY)2018-11-02 06:30:00 Test Item Value Reference Range Interpretation Comments WHITE BLOOD CELL COUNT (BEAKER) 11.4 K/ L 3.5-10.5 H (test code = 775) RED BLOOD CELL COUNT (BEAKER) 4.29 M/ L 4.63-6.08 L (test code = 761) HEMOGLOBIN (BEAKER) (test code = 12.2 GM/DL 13.7-17.5 L 410) HEMATOCRIT (BEAKER) (test code = 37.9 % 40.1-51.0 L 411) MEAN CORPUSCULAR VOLUME (BEAKER) 88.3 fL 79.0-92.2 (test code = 753) MEAN CORPUSCULAR HEMOGLOBIN 28.4 pg 25.7-32.2 (BEAKER) (test code = 751) MEAN CORPUSCULAR HEMOGLOBIN CONC 32.2 GM/DL 32.3-36.5 L (BEAKER) (test code = 752) RED CELL DISTRIBUTION WIDTH 15.2 % 11.6-14.4 H (BEAKER) (test code = 412) PLATELET COUNT (BEAKER) (test 161 K/CU MM 150-450 code = 756) MEAN PLATELET VOLUME (BEAKER) 11.4 fL 9.4-12.4 (test code = 754) NUCLEATED RED BLOOD CELLS 0 /100 WBC 0-0 (BEAKER) (test code = 413) POCT-GLUCOSE [id number] 05:55:00 Test Item Value Reference Range Interpretation Comments POC-GLUCOSE METER 114 mg/dL 70-110 H TESTED AT [facility] 6720 (AKER) (test code = KWASI [place] 1538) [id number] POCT-GLUCOSE [id number] 23:27:00 Test Item Value Reference Range Interpretation Comments POC-GLUCOSE METER 133 mg/dL 70-110 H TESTED AT [place] [address] ([facility]) (test code = KWASI Rowe [facility] 1538) [address] RAD, ABDOMEN/KUB, 1 VIEW [id number] 18:35:00Reason for exam:->To check NG TUbe positionFINAL REPORT INDICATION:Confirm feeding tube placement. TECHNIQUE: Abdomen radiograph one view. FINDINGS / IMPRESSION:There is a feeding tube that follows the course of the stomach with the tip projecting over the gastric antrum. Visualized bowel gas pattern is unremarkable. Osseous structures unremarkable. Signed: Bora Hawk MDReport Verified Date/Time: 11/01/2018 18:35:02 Reading Location: [address] Consult Reading Room -GLUCOSE [id number] 17:52:00 Test Item Value Reference Range Interpretation Comments POC-GLUCOSE METER 134 mg/dL 70-110 H TESTED AT [place] [address] ([facility]) (test code = KWASI Rowe [facility] 1538) [id number] POCT-GLUCOSE [id number] 15:42:00 Test Item Value Reference Range Interpretation Comments POC-GLUCOSE METER 135 mg/dL 70-110 H TESTED AT [place] [address] ([facility]) (test code = KWASI Rowe [facility] 1538) [id number] 06:25:00 Test Item Value Reference Range Interpretation Comments MAGNESIUM (BEAKER) (test code = 2.3 mg/dL 1.6-2.6 627) COMPREHENSIVE METABOLIC [id number] 06:25:00 Test Item Value Reference Range Interpretation Comments TOTAL PROTEIN 5.9 gm/dL 6.0-8.3 L (BEAKER) (test code = 770) ALBUMIN (BEAKER) 3.3 g/dL 3.5-5.0 L (test code = 1145) ALKALINE PHOSPHATASE 47 U/L 40-150 (BEAKER) (test code = 346) BILIRUBIN TOTAL 0.9 mg/dL 0.2-1.2 (BEAKER) (test code = 377) SODIUM (BEAKER) (test 143 meq/L 136-145 code = 381) POTASSIUM (BEAKER) 3.6 meq/L 3.5-5.1 (test code = 379) CHLORIDE (BEAKER) 109 meq/L 98-107 H (test code = 382) CO2 (BEAKER) (test 27 meq/L 22-29 code = 355) BLOOD UREA NITROGEN 22 mg/dL 7-21 H (BEAKER) (test code = 354) CREATININE (BEAKER) 0.89 mg/dL 0.57-1.25 (test code = 358) GLUCOSE RANDOM 152 mg/dL 70-105 H (BEAKER) (test code = 652) CALCIUM (BEAKER) 8.9 mg/dL 8.4-10.2 (test code = 697) AST (SGOT) (BEAKER) 35 U/L 5-34 H (test code = 353) ALT (SGPT) (BEAKER) 28 U/L 6-55 (test code = 347) EGFR (BEAKER) (test 85 mL/min/1.73 ESTIMA CEDRICK GFR IS code = 1092) sq m NOT ACCURATE CREATININE CLEARANCE IN PREDICTING GLOMERULAR FILTRATION RATE . ESTIMATED GFR I S NOT APPLICABLE FOR DIALYSIS PATIEN TS. CBC W/PLT COUNT & AUTO [id number] 06:11:00 Test Item Value Reference Range Interpretation Comments WHITE BLOOD CELL COUNT (BEAKER) 11.8 K/ L 3.5-10.5 H (test code = 775) RED BLOOD CELL COUNT (BEAKER) 4.35 M/ L 4.63-6.08 L (test code = 761) HEMOGLOBIN (BEAKER) (test code = 12.2 GM/DL 13.7-17.5 L 410) HEMATOCRIT (BEAKER) (test code = 38.4 % 40.1-51.0 L 411) MEAN CORPUSCULAR VOLUME (BEAKER) 88.3 fL 79.0-92.2 (test code = 753) MEAN CORPUSCULAR HEMOGLOBIN 28.0 pg 25.7-32.2 (BEAKER) (test code = 751) MEAN CORPUSCULAR HEMOGLOBIN CONC 31.8 GM/DL 32.3-36.5 L (BEAKER) (test code = 752) RED CELL DISTRIBUTION WIDTH 15.3 % 11.6-14.4 H (BEAKER) (test code = 412) PLATELET COUNT (BEAKER) (test 165 K/CU MM 150-450 code = 756) MEAN PLATELET VOLUME (BEAKER) 11.1 fL 9.4-12.4 (test code = 754) NUCLEATED RED BLOOD CELLS 0 /100 WBC 0-0 (BEAKER) (test code = 413) NEUTROPHILS RELATIVE PERCENT 74 % (BEAKER) (test code = 429) LYMPHOCYTES RELATIVE PERCENT 17 % (BEAKER) (test code = 430) MONOCYTES RELATIVE PERCENT 7 % (BEAKER) (test code = 431) EOSINOPHILS RELATIVE PERCENT 1 % (BEAKER) (test code = 432) BASOPHILS RELATIVE PERCENT 0 % (BEAKER) (test code = 437) NEUTROPHILS ABSOLUTE COUNT 8.68 K/ L 1.78-5.38 H (BEAKER) (test code = 670) LYMPHOCYTES ABSOLUTE COUNT 2.02 K/ L 1.32-3.57 (BEAKER) (test code = 414) MONOCYTES ABSOLUTE COUNT (BEAKER) 0.87 K/ L 0.30-0.82 H (test code = 415) EOSINOPHILS ABSOLUTE COUNT 0.15 K/ L 0.04-0.54 (BEAKER) (test code = 416) BASOPHILS ABSOLUTE COUNT (BEAKER) 0.03 K/ L 0.01-0.08 (test code = 417) IMMATURE GRANULOCYTES-RELATIVE 0 % 0-1 PERCENT (BEAKER) (test code = 2801) CT, BRAIN, WITHOUT [id number] 05:58:00FINAL REPORT EXAM: CT head without contrast. CLINICAL HISTORY: Stroke COMPARISON: 10/31/2018 TECHNIQUE: CT images of the head were obtained without intravenous contrast. This exam was performed according to our departmental dose optimization program which includes automated exposure control, adjustment of the mA and/or kV according to patient's size and/or use of iterative recon structive technique. FINDINGS:There is mild generalized parenchymal atrophy. [...] is mild prominence of the left frontotemporal extra- axial [...] recommended. Mild prominence of the left frontotemporal extra-axial space which may be due to volume loss however a thin underlying subdural hygroma or chronic subdural hematoma cannot be excluded Signed: Brenda Pandya MDReport Verified Date/Time: 11/01/2018 05:58:05 Reading Location: [facility] C013Y CT Body Reading Room Electronically signed by: Eugenia GLEZ 11/01/2018 05:58 AMPOCT-GLUCOSE [id number] 23:14:00 Test Item Value Reference Range Interpretation Comments POC-GLUCOSE METER 165 mg/dL 70-110 H TESTED AT [place] [address] ([facility]) (test code = KWASI STORM [place] 1538) [id number] CT, CTANGIO [id number] 18:44:00FINAL REPORT CT, CTANGIO BRAIN, CT, CAROTID, [...] carotid artery is widely patent extracranially. Nonvascular findings:Lnho-op-tiwdzlcu degenerative changes are present in the cervical [...] of the distal right middle branches. Signed: Elpidio lynn JR, Robert MDReport Verified Date/Time: 10/31/2018 18:44:42 Reading Location: [facility] C013V Neuro Reading Room CT, CAROTID, [id number] 18:44:00FINAL REPORT CT, CTANGIO BRAIN, CT, CAROTID, [...] carotid artery is widely patent extracranially. Nonvascular findings:Mtcm-ch-dxyewzgi degenerative changes are present in the cervical [...] of the distal right middle branches. Signed: Elpidio lynn JR, Robert MDRsaint [facility] Verified Date/Time: 10/31/2018 18:44:42 Reading Location: [facility] C013V Neuro Reading Room [id number] 14:17:00 Test Item Value Reference Range Interpretation Comments RPR SCREEN (BEAKER) (test code = Nonreactive Nonreactive 420) CBC W/PLT COUNT & AUTO [id number] 12:54:00 Test Item Value Reference Range Interpretation Comments WHITE BLOOD CELL COUNT (BEAKER) 19.3 K/ L 3.5-10.5 H (test code = 775) RED BLOOD CELL COUNT (BEAKER) 4.94 M/ L 4.63-6.08 (test code = 761) HEMOGLOBIN (BEAKER) (test code = 14.2 GM/DL 13.7-17.5 410) HEMATOCRIT (BEAKER) (test code = 42.3 % 40.1-51.0 411) MEAN CORPUSCULAR VOLUME (BEAKER) 85.6 fL 79.0-92.2 (test code = 753) MEAN CORPUSCULAR HEMOGLOBIN 28.7 pg 25.7-32.2 (BEAKER) (test code = 751) MEAN CORPUSCULAR HEMOGLOBIN CONC 33.6 GM/DL 32.3-36.5 (BEAKER) (test code = 752) RED CELL DISTRIBUTION WIDTH 15.0 % 11.6-14.4 H (BEAKER) (test code = 412) PLATELET COUNT (BEAKER) (test 197 K/CU MM 150-450 code = 756) MEAN PLATELET VOLUME (BEAKER) 11.0 fL 9.4-12.4 (test code = 754) NUCLEATED RED BLOOD CELLS 0 /100 WBC 0-0 (BEAKER) (test code = 413) (CELLAVISION MANUAL DIFF)2018-10-31 12:54:00 Test Item Value Reference Range Interpretation Comments NEUTROPHILS - REL 77 % (CELLAVISION)(BEAKER) (test code = 2816) LYMPHOCYTES - REL 15 % (CELLAVISION)(BEAKER) (test code = 2817) MONOCYTES - REL 4 % (CELLAVISION)(BEAKER) (test code = 2818) BANDS - REL (CELLAVISION)(BEAKER) 3 % 0-10 (test code = 2826) ATYPICAL LYMPHOCYTES - REL 1 % 0-0 H (CELLAVISION)(BEAKER) (test code = 2829) NEUTROPHILS - ABS 14.86 K/ul 1.78-5.38 H (CELLAVISION)(BEAKER) (test code = 2830) LYMPHOCYTES - ABS 2.90 K/ul 1.32-3.57 (CELLAVISION)(BEAKER) (test code = 2831) MONOCYTES - ABS 0.77 K/uL 0.30-0.82 (CELLAVISION)(BEAKER) (test code = 2832) BANDS - ABS (CELLAVISION)(BEAKER) 0.58 K/uL 0.00-0.80 (test code = 2840) ATYPICAL LYMPHOCYTES - ABS 0.19 K/uL 0.00-0.00 H (CELLAVISION)(BEAKER) (test code = 2858) TOTAL COUNTED (BEAKER) (test code 100 = 1351) SMUDGE CELLS (BEAKER) (test code = Present 1371) GIANT PLATELETS (BEAKER) (test Present code = 313) POLYCHROMATOPHILLIC RBCS(BEAKER) 1+ few (test code = 478) ANISOCYTOSIS (BEAKER) (test code = 1+ few 961) MICROCYTES (BEAKER) (test code = 1+ few 965) ARTIFACT (CELLAVISION)(BEAKER) Present (test code = 3432) PLATELET CONCENTRATION Adequate (CELLAVISION)(BEAKER) (test code = 3438) Received comment: User comments: Slide comments:HEMOGLOBIN [id number] 11:05:00 Test Item Value Reference Range Interpretation Comments HEMOGLOBIN A1C (BEAKER) (test code = 8.4 % 4.3-6.1 H 368) VITAMIN [id number] 07:43:00 Test Item Value Reference Range Interpretation Comments VITAMIN B12 (BEAKER) (test code = 595 pg/mL 213-816 774) TROPONIN [id number] 07:21:00 Test Item Value Reference Range Interpretation Comments TROPONIN I (BEAKER) (test code = 0.13 ng/mL 0.00-0.03 H 397) Troponin I (TnI) levels must be interpreted [...] acidosis, acute neurological disease, and persistent tachyarrhythmia.C-REACTIVE [id number] 07:16:00 Test Item Value Reference Range Interpretation Comments C-REACTIVE PROTEIN (BEAKER) (test 4.19 mg/dL 0.00-0.50 H code = 676) TSH/FREE T4 IF [id number] 06:15:00 Test Item Value Reference Range Interpretation Comments THYROID STIMULATING HORMONE 2.46 uIU/mL 0.35-4.94 (BEAKER) (test code = 772) [id number] 05:54:00 Test Item Value Reference Range Interpretation Comments PROTIME (BEAKER) (test code = 14.3 seconds 11.7-14.7 759) INR (BEAKER) (test code = 370) 1.1 <=5.9 PARTIAL THROMBOPLASTIN TIME 29.4 seconds 22.5-36.0 (BEAKER) (test code = 760) RECOMMENDED COUMADIN/WARFARIN INR THERAPY RANGESSTANDARD DOSE: 2.0 - 3.0 Includes: PROPHYLAXIS forvenous thrombosis, systemic embolization; TREATMENT for venous thrombosis and/or pulmonary embolus.HIGH RISK: Target INR is 2.5-3.5 for patients with mechanical heart valves.LIPID [id number] 05:51:00 Test Item Value Reference Range Interpretation Comments TRIGLYCERIDES (BEAKER) (test code = 191 mg/dL 540) CHOLESTEROL (BEAKER) (test code = 115 mg/dL 631) HDL CHOLESTEROL (BEAKER) (test code 41 mg/dL = 976) LDL CHOLESTEROL CALCULATED (BEAKER) 36 mg/dL (test code = 633) Triglyceride Reference Range: Low Risk <150 Borderline 150-199 High Risk 200-499 Very High Risk >=500Cholesterol Reference Range: Low Risk <200 Borderline 200-239 High Risk >240HDL Cholesterol Reference Range: Low Risk >=60 High Risk <40LDL Cholesterol Reference Range: Optimal <100 Near Optimal 100-129 Borderline 130-159 High 160-189 Very High >=190COMPREHENSIVE METABOLIC [id number] 05:51:00 Test Item Value Reference Range Interpretation Comments TOTAL PROTEIN 6.6 gm/dL 6.0-8.3 (BEAKER) (test code = 770) ALBUMIN (BEAKER) 3.7 g/dL 3.5-5.0 (test code = 1145) ALKALINE PHOSPHATASE 51 U/L 40-150 (BEAKER) (test code = 346) BILIRUBIN TOTAL 1.5 mg/dL 0.2-1.2 H (BEAKER) (test code = 377) SODIUM (BEAKER) (test 141 meq/L 136-145 code = 381) POTASSIUM (BEAKER) 4.3 meq/L 3.5-5.1 (test code = 379) CHLORIDE (BEAKER) 108 meq/L 98-107 H (test code = 382) CO2 (BEAKER) (test 25 meq/L 22-29 code = 355) BLOOD UREA NITROGEN 33 mg/dL 7-21 H (BEAKER) (test code = 354) CREATININE (BEAKER) 1.02 mg/dL 0.57-1.25 (test code = 358) GLUCOSE RANDOM 160 mg/dL 70-105 H (BEAKER) (test code = 652) CALCIUM (BEAKER) 9.0 mg/dL 8.4-10.2 (test code = 697) AST (SGOT) (BEAKER) 54 U/L 5-34 H (test code = 353) ALT (SGPT) (BEAKER) 32 U/L 6-55 (test code = 347) EGFR (BEAKER) (test 72 mL/min/1.73 ESTIMA CEDRICK GFR IS code = 1092) sq m NOT ACCURATE CREATININE CLEARANCE IN PREDICTING GLOMERULAR FILTRATION RATE . ESTIMATED GFR I S NOT APPLICABLE FOR DIALYSIS PATIEN TS.
[2020-12-17 20:48] LABS: Absolute Lymphocytes (CBC) 1.5 K/uL (0.7-4.9); Basophils % 0.4 % (0-1.3); Hematocrit 36.8 % (39.6-49.0); Lymphocytes % 14.7 % (15.3-44.8); MPV 8.3 fL (7.6-11.3); RBC Red Blood Cell Count 4.21 M/uL (4.33-5.43)
[2020-12-17 20:54] LABS: Protime INR 0.95
--- NOTE | 2020-12-17 21:00 | RAD REPORT ---
EXAM DESCRIPTION: RAD - Chest Single View - 12/17/2020 8:53 pm CLINICAL HISTORY: CHEST PAIN COMPARISON: Portable October 2018 TECHNIQUE: AP portable chest image was obtained 12/17/2020 8:53 pm . FINDINGS: No focal lung parenchymal process. Interstitial pattern matches comparison. Sternotomy wir es are in place. Heart and vasculature are normal. No measurable pleural effusion and no pneumothorax . No acute bony abnormality seen. No acute aortic findings suspected. IMPRESSION: No acute cardiopulmonary process. No significant change from comparison study.
--- NOTE | 2020-12-17 21:07 | EDPHYS ---
Physician Documentation [facility] Name: Zain Hope Age: 70 yrs Sex: Male : 1950 Arrival Date: 12/17/2020 Time: 20:[address] Private MD: ED Physician John Cline HPI: 12/17 20:57 This 70 yrs old Male presents to ER via EMS with complaints of Chest Pain, agapito Nausea, Shortness Of Breath. 20:57 The patient or guardian reports chest pain that is located primarily in the substernal agapito area, anterior chest wall, bilaterally. Onset: this morning. The pain does not radiate. Associated signs and symptoms: Pertinent positives: shortness of breath. The chest pain is described as a pressure. Duration: The patient or guardian reports multiple episodes, with no pattern. Modifying factors: The symptoms are alleviated by nothing. the symptoms are aggravated by nothing. Severity of pain: At its worst the pain was mild in the emergency department the pain has improved mildly. The patient has not experienced similar symptoms in the past. Historical: - Allergies: 20:32 No Known Allergies; zb - Home Meds: 20:32 acetaminophen 325 mg Oral tab 1 tab every 4 hours [Active]; aspirin 81 mg Oral chew 1 zb tab once daily [Active]; atorvastatin 80 mg oral tab 1 tab once daily [Active]; famotidine 20 mg Oral tab [Active]; Keppra 500 mg Oral tab 1 tab 2 times per day [Active]; Lantus 100 unit/mL Sub-Q soln 20 unit [Active]; losartan 25 mg oral tab 1 tab 2 times per day [Active]; metformin 1,000 mg Oral tab 1 tab 2 times per day [Active]; ticagrelor oral oral 1 tab 2 times per day [Active]; tramadol 50 mg Oral tab 2 tabs 12 hours [Active]; Zofran (as hydrochloride) 4 mg Oral tab 1 tabs every 8 hours [Active]; - PMHx: 20:32 CAD; CVA; Depression; Diabetes - NIDDM; DYSPHAGIA; GERD; Hyperlipidemia; Hypertension; zb Hypothyroidism; - PSHx: 20:32 CABG; zb - Immunization history:: Adult Immunizations up to date. - Social history:: Smoking status: Patient/guardian denies using tobacco, but has a distant history of tobacco abuse. - Family history:: not pertinent. ROS: 20:57 Constitutional: Negative for fever, chills, and weight loss, Eyes: Negative for injury, agapito pain, redness, and discharge, ENT: Negative for injury, pain, and discharge, Neck: Negative for injury, pain, and swelling, Respiratory: Negative for shortness of breath, cough, wheezing, and pleuritic chest pain, Abdomen/GI: Negative for abdominal pain, nausea, vomiting, diarrhea, and constipation, Back: Negative for injury and pain, : Negative for injury, bleeding, discharge, and swelling, MS/Extremity: Negative for injury and deformity, Skin: Negative for injury, rash, and discoloration, Neuro: Negative for headache, weakness, numbness, tingling, and seizure, Psych: Negative for depression, anxiety, suicide ideation, homicidal ideation, and hallucinations, Allergy/Immunology: Negative for hives, rash, and allergies, Endocrine: Negative for neck swelling, polydipsia, polyuria, polyphagia, and marked weight changes, Hematologic/Lymphatic: Negative for swollen nodes, abnormal bleeding, and unusual bruising. 20:57 Cardiovascular: Positive for chest pain, of the chest. Exam: 20:57 Constitutional: This is a well developed, well nourished patient who is awake, alert, agapito and in no acute distress. Head/Face: Normocephalic, atraumatic. Eyes: Pupils equal round and reactive to light, extra-ocular motions intact. Lids and lashes normal. Conjunctiva and sclera are non-icteric and not injected. Cornea within normal limits. Periorbital areas with no swelling, redness, or edema. ENT: Nares patent. No nasal discharge, no septal abnormalities noted. Tympanic membranes are normal and external auditory canals are clear. Oropharynx with no redness, swelling, or masses, exudates, or evidence of obstruction, uvula midline. Mucous membranes moist. Neck: Trachea midline, no thyromegaly or masses palpated, and no cervical lymphadenopathy. Supple, full range of motion without nuchal rigidity, or vertebral point tenderness. No Meningismus. Chest/axilla: Normal chest wall appearance and motion. Nontender with no deformity. No lesions are appreciated. Cardiovascular: Regular rate and rhythm with a normal S1 and S2. No gallops, murmurs, or rubs. Normal PMI, no JVD. No pulse deficits. Respiratory: Lungs have equal breath sounds bilaterally, clear to auscultation and percussion. No rales, rhonchi or wheezes noted. No increased work of breathing, no retractions or nasal flaring. Abdomen/GI: Soft, non-tender, with normal bowel sounds. No distension or tympany. No guarding or rebound. No evidence of tenderness throughout. Back: No spinal tenderness. No costovertebral tenderness. Full range of motion. Male : Normal genitalia with no discharge or lesions. Skin: Warm, dry with normal turgor. Normal color with no rashes, no lesions, and no evidence of cellulitis. MS/ Extremity: Pulses equal, no cyanosis. Neurovascular intact. Full, normal range of motion. Neuro: Awake and alert, GCS 15, oriented to person, place, time, and situation. Cranial nerves II-XII grossly intact. Motor strength 5/5 in all extremities. Sensory grossly intact. Cerebellar exam normal. Normal gait. Psych: Awake, alert, with orientation to person, place and time. Behavior, mood, and affect are within normal limits. 21:07 ECG was reviewed by the Attending Physician. [facility] Vital Signs: 20:19 BP 134 / 78; Pulse 72; Resp 18; Temp 98.6(O); Pulse Ox 100% on R/A; Weight 60.78 kg zb (R); Height 5 ft. 11 in. (180.34 cm); Pain 6/10; 21:30 BP 149 / 86; Pulse 65; Resp 16; Pulse Ox 99% on R/A; zb 22:45 BP 156 / 92; Pulse 67; Resp 18; Pulse Ox 99% on R/A; zb 23:30 BP 138 / 88; Pulse 62; Resp 16; Pulse Ox 99% on R/A; zb 12/18 00:08 BP 159 / 85; Pulse 59; Resp 16; Pulse Ox 100% on R/A; zb 01:25 BP 149 / 80; Pulse 62; Resp 18; Pulse Ox 99% on R/A; ea 12/17 20:19 Body Mass Index 18.69 (60.78 kg, 180.34 cm) z MDM: 12/17 20:21 Patient medically screened. [facility] 20:58 Differential diagnosis: abnormal EKG, acute myocardial infarction, chest wall pain, agapito Cholelithiasis esophagitis, hiatal hernia, pancreatitis, pneumonia, stable angina, unstable angina. HEART Score: History: Moderately Suspicious (1), ECG: Non specific repolarization disturbance / LBTB / PM (1), Age: > or = 65 years (2), Risk Factors: > or = 3 Risk factors for atherosclerotic disease (2), [Hypercholesterolemia] [Hypertension] [DM] [+ Family HX] Troponin: < or = 1 x Normal Limit (0). The patient was given aspirin in the Emergency Department. The patient's deep vein thrombosis risk score was calculated as follows: Total Score: 0. This patient was found to be at low risk for a deep vein thrombosis by using the Well's assessment criteria. The patient's pulmonary embolism risk score was calculated as follows: Total Score: 0-2 points. This patient was found to be at low risk for a pulmonary embolism by using the Well's assessment criteria. LORI Risk Score: 1 - patient's age is greater or equal to 65 years, 1 - Three or more CAD risk factors, 1- Known CAD, 1 - ASA use in past 7 days, TOTAL SCORE = 4. Data reviewed: vital signs, nurses notes, lab test result(s), EKG, radiologic studies, plain films. 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 Test interpretation: by ED physician or midlevel provider: ECG, plain radiologic studies. Counseling: I had a detailed discussion with the patient and/or guardian regarding: the historical points, exam findings, and any diagnostic results supporting the discharge/admit diagnosis, lab results, radiology results, the need for further work-up and treatment in the hospital. 12/17 20:29 Order name: Basic Metabolic Panel; Complete Time: 21:37 iw 12/17 20:29 Order name: CBC with Diff; Complete Time: 21:01 iw 12/17 20:29 Order name: LFT's; Complete Time: 21:37 iw 12/17 20:29 Order name: Magnesium; Complete Time: 21:37 iw 12/17 20:29 Order name: NT PRO-BNP; Complete Time: 21:37 iw 12/17 20:29 Order name: PT-INR; Complete Time: 21:22 12/17 20: Order name: Troponin (emerg Dept Use Only); Complete Time: 21:37 iw 12/17 20:29 Order name: XRAY Chest (1 view); Complete Time: 21:22 iw 12/17 23:19 Order name: CT Stone Protocol agapito 12/17 23:24 Order name: SARS-COV-2 RT PCR; Complete Time: 23:40 EDMS 12/17 20:29 Order name: EKG; Complete Time: 20:32 iw 12/17 20:29 Order name: Cardiac monitoring; Complete Time: 20:31 iw 12/17 20:29 Order name: EKG - Nurse/Tech; Complete Time: 20:31 iw 12/17 20:29 Order name: IV Saline Lock; Complete Time: 20:42 iw 12/17 20:29 Order name: Labs collected and sent; Complete Time: 20:42 iw 12/17 20:29 Order name: O2 Per Protocol; Complete Time: 20:42 iw 12/17 20:29 Order name: O2 Sat Monitoring; Complete Time: 20:42 iw 12/17 23:39 Order name: CONS Physician Consult EDMS EC:07 Rate is 79 beats/min. Rhythm is regular. QRS [place] is Normal. [place] interval is normal. QRS agapito interval is normal. QT interval is normal. No Q waves. T waves are Normal. No ST changes noted. Clinical impression: NSR w/ Non-specific ST/T Changes and No evidence of ischemia. Interpreted by me. Reviewed by me. Administered Medications: 21:17 Drug: Lopressor (metoprolol TARTRATE)) 25 mg Route: PO; zb 23:29 Follow up: Response: No adverse reaction zb 21:18 Drug: Pepcid (famotidine) 20 mg Route: IVP; Site: right forearm; zb 23:29 Follow up: Response: No adverse reaction zb 21:18 Drug: Lovenox (enoxaparin) 60 mg Route: Sub-Q; Site: left lower abdomen; zb 23:29 Follow up: Response: No adverse reaction zb 23:44 Drug: Keppra (levETIRAcetam) 500 mg Route: PO; zb 12/18 00:06 Follow up: Response: No adverse reaction zb 00:00 Drug: NS 0.9% 1000 ml Route: IV; Rate: 75 ml/hr; Site: right antecubital; zb 01:39 Follow up: Response: No adverse reaction; IV Status: Infusion continued upon admission ea 00:00 Drug: NS 0.9% 500 ml Route: IV; Rate: bolus; Site: right antecubital; zb 01:30 Follow up: Response: No adverse reaction; IV Status: Completed infusion; IV Intake: ea 500ml Disposition: 12/17/20 21:06 Hospitalization ordered by Cipriano Anaya for Observation. Preliminary diagnosis are Chest pain, unspecified, Type 2 diabetes mellitus, Acute kidney failure - acute on chronic renal insufficency. - Bed requested for Telemetry/MedSurg (observation). - Status is Observation. ea - Condition is Stable. - Problem is new. - Symptoms have improved. Signatures: Dispatcher [employer] EDNJ John Cline MD MD cha Williams, Irene, RN JACLYN iw Veena Hopper RN RN tl1 Mary Watson RN RN ea Brown, Zipporah, RN RN zb Johnson, Evan, PA PA ej Corrections: (The following items were deleted from the chart) 12/17 21:39 21:06 Hospitalization Ordered by Cipriano Anaya MD for Observation. Preliminary agapito diagnosis is Chest pain, unspecified; Type 2 diabetes mellitus. Bed requested for Telemetry/MedSurg (observation). Status is Observation. Condition is Stable. Problem is new. Symptoms have improved. agapito 21:49 21:39 12/17/2020 21:06 Hospitalization Ordered by Cipriano Anaya MD for Observation. agapito Preliminary diagnosis is Chest pain, unspecified; Type 2 diabetes mellitus; Unspecified kidney failure - chronic. Bed requested for Telemetry/MedSurg (observation). Status is Observation. Condition is Stable. Problem is new. Symptoms have improved. agapito 22:29 21:27 CORONAVIRUS+MR.LAB.BRZ ordered. [facility] EDNJ 12/18 01:00 12/17 21:49 12/17/2020 21:06 Hospitalization Ordered by Cipriano Anaya MD for tl1 Observation. Preliminary diagnosis is Chest pain, unspecified; Type 2 diabetes mellitus; Acute kidney failure - acute on chronic renal insufficency. Bed requested for Telemetry/MedSurg (observation). Status is Observation. Condition is Stable. Problem is new. Symptoms have improved. agapito 12/18 01:39 01:00 12/17/2020 21:06 Hospitalization Ordered by Cipriano Anaya MD for Observation. ea Preliminary diagnosis is Chest pain, unspecified; Type 2 diabetes mellitus; Acute kidney failure - acute on chronic renal insufficency. Bed requested for Telemetry/MedSurg (observation). Status is Observation. Condition is Stable. Problem is new. Symptoms have improved. tl1
--- NOTE | 2020-12-17 21:07 | ER ---
Nurse's Notes [facility] Name: Zain Hope Age: 70 yrs Sex: Male : 1950 Arrival Date: 12/17/2020 Time: 20:[address] Private MD: Diagnosis: Chest pain, unspecified;Type 2 diabetes mellitus;Acute kidney failure-acute on chronic renal insufficency Presentation: 12/17 20:19 Chief complaint: EMS states: Pt is coming from [place] reported having chest pain zb earlier this morning. He was given a " heart medication" and some aspirin. When family arrived patient reported he was still having chest pain. Family also stated that patient seemed "loopy " to them. EMS was called.. Coronavirus screen: Client presents with at least one sign or symptom that may indicate coronavirus-19. Ebola Screen: No symptoms or risks identified at this time. Initial Sepsis Screen: Does the patient meet any 2 criteria? No. Patient's initial sepsis screen is negative. Does the patient have a suspected source of infection? No. Patient's initial sepsis screen is negative. Risk Assessment: Do you want to hurt yourself or someone else? Patient reports no desire to harm self or others. Onset of symptoms was December 17, 2020. 20:19 Acuity: BRYANT 2 zb 20:19 Method Of Arrival: EMS: [facility] zb Triage Assessment: 20:38 General: Appears in no apparent distress. uncomfortable, Behavior is calm, cooperative, zb appropriate for age. Pain: Complains of pain in right yarsani, left yarsani, anterior aspect of right upper chest and abdomen Pain does not radiate. Pain currently is 6 out of 10 on a pain scale. Quality of pain is described as aching, throbbing. Neuro: Level of Consciousness is awake, alert, obeys commands, Oriented to person, place, situation, Nutrition Aide are weak on left Weakness in left arm(s) chronic history of CVA . Cardiovascular: Reports chest pain, nausea, shortness of breath, Heart tones S1 S2 present Capillary refill < 3 seconds Patient's skin is warm and dry. Rhythm is irregular. Respiratory: Reports shortness of breath at rest Airway is patent Respiratory effort is even, unlabored, Respiratory pattern is regular, symmetrical, Breath sounds are clear bilaterally. Onset: The symptoms/episode began/occurred today, the patient has mild shortness of breath. GI: Abdomen is flat, Abdomen is tender to palpation X 4 quads. Reports nausea. Derm: Skin is fragile, is thin, Skin is dry, Skin is normal. Musculoskeletal: Range of motion: limited in Left arm. Historical: - Allergies: 20:32 No Known Allergies; zb - Home Meds: 20:32 acetaminophen 325 mg Oral tab 1 tab every 4 hours [Active]; aspirin 81 mg Oral chew 1 zb tab once daily [Active]; atorvastatin 80 mg oral tab 1 tab once daily [Active]; famotidine 20 mg Oral tab [Active]; Keppra 500 mg Oral tab 1 tab 2 times per day [Active]; Lantus 100 unit/mL Sub-Q soln 20 unit [Active]; losartan 25 mg oral tab 1 tab 2 times per day [Active]; metformin 1,000 mg Oral tab 1 tab 2 times per day [Active]; ticagrelor oral oral 1 tab 2 times per day [Active]; tramadol 50 mg Oral tab 2 tabs 12 hours [Active]; Zofran (as hydrochloride) 4 mg Oral tab 1 tabs every 8 hours [Active]; - PMHx: 20:32 CAD; CVA; Depression; Diabetes - NIDDM; DYSPHAGIA; GERD; Hyperlipidemia; Hypertension; zb Hypothyroidism; - PSHx: 20:32 CABG; zb - Immunization history:: Adult Immunizations up to date. - Social history:: Smoking status: Patient/guardian denies using tobacco, but has a distant history of tobacco abuse. - Family history:: not pertinent. Screenin:34 Abuse screen: Denies threats or abuse. Denies injuries from another. Nutritional zb screening: No deficits noted. Tuberculosis screening: No symptoms or risk factors identified. Fall Risk None identified. Assessment: 20:33 Reassessment: See triage assessment ECP at bedside. zb 21:33 Reassessment: Patient appears in no apparent distress at this time. Patient and/or zb family updated on plan of care and expected duration. Pain level reassessed. Patient is alert, oriented x 3, equal unlabored respirations, skin warm/dry/pink. family at bedside. 22:33 Reassessment: Patient appears in no apparent distress at this time. Patient and/or zb family updated on plan of care and expected duration. Pain level reassessed. Patient is alert, oriented x 3, equal unlabored respirations, skin warm/dry/pink. family at bedside. 23:30 Reassessment: Patient appears in no apparent distress at this time. Patient and/or zb family updated on plan of care and expected duration. Pain level reassessed. Patient is alert, oriented x 3, equal unlabored respirations, skin warm/dry/pink. IV fluid infusing. 12/18 00:12 Reassessment: Patient appears in no apparent distress at this time. Patient and/or zb family updated on plan of care and expected duration. Pain level reassessed. Patient is alert, oriented x 3, equal unlabored respirations, skin warm/dry/pink. IV fluid infusing. 01:24 Reassessment: Patient and/or family updated on plan of care and expected duration. Pain ea level reassessed. Patient is alert, oriented x 3, equal unlabored respirations, skin warm/dry/pink. 01:38 Reassessment: Patient and/or family updated on plan of care and expected duration. Pain ea level reassessed. Patient is alert, oriented x 3, equal unlabored respirations, skin warm/dry/pink. Pt admitted to second floor, left ED via stretcher per radiological technician. Pt tolerating well. No s/s of pain or discomfort noted at this time. Vital Signs: 12/17 20:19 BP 134 / 78; Pulse 72; Resp 18; Temp 98.6(O); Pulse Ox 100% on R/A; Weight 60.78 kg zb (R); Height 5 ft. 11 in. (180.34 cm); Pain 6/10; 21:30 BP 149 / 86; Pulse 65; Resp 16; Pulse Ox 99% on R/A; zb 22:45 BP 156 / 92; Pulse 67; Resp 18; Pulse Ox 99% on R/A; zb 23:30 BP 138 / 88; Pulse 62; Resp 16; Pulse Ox 99% on R/A; zb 12/18 00:08 BP 159 / 85; Pulse 59; Resp 16; Pulse Ox 100% on R/A; zb 01:25 BP 149 / 80; Pulse 62; Resp 18; Pulse Ox 99% on R/A; ea 12/17 20:19 Body Mass Index 18.69 (60.78 kg, 180.34 cm) zb ED Course: 12/17 20:19 Patient arrived in ED. zb 20:21 John Cline MD is Attending Physician. [facility] 20:23 Triage completed. zb 20:34 Patient has correct armband on for positive identification. Bed in low position. Call zb light in reach. court monitor on. Pulse ox on. NIBP on. Door closed. Noise minimized. 20:41 Maintain EMS IV. Dressing intact. Site clean \\T\\ dry. Gauge \\T\\ site: 20G RFA . zb 20:42 Lakia Corea RN is Primary Nurse. zb 20:42 Initial lab(s) drawn, by ED staff, sent to lab. EKG done, by ED staff, reviewed by rebeca Cline MD. 20:53 XRAY Chest (1 view) In Process Unspecified. EDMS 21:05 Cipriano Anaya MD is Hospitalizing Provider. [facility] 12/18 01:19 Arm band placed on right wrist. Patient placed in an exam room, on a stretcher, on ea pulse oximetry. 01:19 No provider procedures requiring assistance completed. Patient admitted, IV remains in ea place. Administered Medications: 12/17 21:17 Drug: Lopressor (metoprolol TARTRATE)) 25 mg Route: PO; zb 23:29 Follow up: Response: No adverse reaction zb 21:18 Drug: Pepcid (famotidine) 20 mg Route: IVP; Site: right forearm; zb 23:29 Follow up: Response: No adverse reaction zb 21:18 Drug: Lovenox (enoxaparin) 60 mg Route: Sub-Q; Site: left lower abdomen; zb 23:29 Follow up: Response: No adverse reaction zb 23:44 Drug: Keppra (levETIRAcetam) 500 mg Route: PO; zb 12/18 00:06 Follow up: Response: No adverse reaction zb 00:00 Drug: NS 0.9% 1000 ml Route: IV; Rate: 75 ml/hr; Site: right antecubital; zb 01:39 Follow up: Response: No adverse reaction; IV Status: Infusion continued upon admission ea 00:00 Drug: NS 0.9% 500 ml Route: IV; Rate: bolus; Site: right antecubital; rebeca 01:30 Follow up: Response: No adverse reaction; IV Status: Completed infusion; IV Intake: ea 500ml Intake: 12/17 20:00 IV: 200ml; Total: 200ml. zbabita 12/18 01:30 IV: 500ml; Total: 700ml. ea Outcome: 12/17 21:06 Decision to Hospitalize by Provider. agapito 12/18 01:24 Instructed on the need for admit, Demonstrated understanding of instructions. cirilo 01:37 Admitted to Med/surg accompanied by tech, via stretcher, room 225, with chart, Report ea called to Receiving nurse 01:37 Condition: stable 01:39 Patient left the ED. ea Signatures: Dispatcher [employer] EDJohn Toro MD MD cha Antunez, Elena, RN RN Lakia Dias RN RN zb
[2020-12-17 21:11] LABS: ALT/SGPT 17 U/L (12-78); AST/SGOT 13 U/L (15-37); Albumin 3.8 g/dL (3.4-5.0); Alkaline Phosphatase 75 U/L (45-117); BUN Blood Urea Nitrogen 21 mg/dL (7-18); Bicarbonate 27 mmol/L (21-32); Bilirubin Direct 0.2 mg/dL (0-0.2); Bilirubin Total 0.8 mg/dL (0.2-1.0); Glucose Level 131 mg/dL (74-106); Magnesium 1.9 mg/dL (1.8-2.4); NT PRO-BNP 1261 pg/mL (<125); Protein, Total 7.7 g/dL (6.4-8.2); Sodium Level 136 mmol/L (136-145); Troponin (Emerg Dept Use Only) < 0.02 ng/mL (0.0-0.045)
[2020-12-17] MEDS ORDERED: METOPROLOL TAR 25 MG TAB ONE (21:29)
[2020-12-17] MEDS ORDERED: ENOXAPARIN 60 MG/0.6 ML SQ ONE (21:30)
[2020-12-17] MEDS ORDERED: FAMOTIDINE 20 MG/2 ML VIAL IV ONE (21:30)
[2020-12-18] MEDS ORDERED: levETIRAcetam 500 MG TAB ONE (00:01)
[2020-12-18] MEDS ORDERED: NA CHLORIDE 0.9% 1,000 ML ONE (00:02)
[2020-12-18] MEDS ORDERED: NA CHLORIDE 0.9% 500 ML ONE (00:02)
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
[2020-12-18] MEDS ORDERED: ACETAMINOPHEN 500 MG TAB PO PRN (01:54)
[2020-12-18] MEDS ORDERED: NITROGLYCERIN 0.4 MG/TAB SL PRN (01:54)
[2020-12-18] MEDS: HEPARIN 5000 UNIT/ML 1 ML VIAL SQ SCH ×3 (01:54→17:40)
[2020-12-18] MEDS ORDERED: HYDRALAZINE HCL 20 MG/ML VIAL IV PRN (01:54)
[2020-12-18] MEDS ORDERED: ONDANSETRON 4 MG/2 ML VIAL IV PRN (01:54)
[2020-12-18] MEDS ORDERED: MORPHINE 2 MG/ML SYR IV PRN (01:54)
[2020-12-18] MEDS: NA CHLORIDE 0.9% 1,000 ML IV SCH ×2 (04:15→18:20)
[2020-12-18 05:35] VITALS: BMI 17.8
[2020-12-18] MEDS ORDERED: METOPROLOL TAR 25 MG TAB PO SCH (06:00)
[2020-12-18 06:26] LABS: Absolute Lymphocytes (CBC) 2.3 K/uL (0.7-4.9); Basophils % 0.4 % (0-1.3); Hematocrit 34.6 % (39.6-49.0); Lymphocytes % 28.1 % (15.3-44.8); MPV 8.7 fL (7.6-11.3); RBC Red Blood Cell Count 3.95 M/uL (4.33-5.43)
[2020-12-18 06:47] LABS: Albumin 3.4 g/dL (3.4-5.0); Bilirubin Total 0.7 mg/dL (0.2-1.0); Magnesium 1.9 mg/dL (1.8-2.4); Phosphorus 3.2 mg/dL (2.5-4.9); Potassium 4.6 mmol/L (3.5-5.1); Protein, Total 6.9 g/dL (6.4-8.2); Thyroid Stimulating Hormone 2.6 uIU/mL (0.360-3.740)
[2020-12-18] MEDS: INSULIN -REGULAR HUMAN 50 UNIT/0.5 ML ML SQ SCH ×4 (07:30→20:33)
[2020-12-18] MEDS: ASPIRIN EC 81 MG TAB PO SCH (08:23)
--- NOTE | 2020-12-18 08:54 | P.CNS ---
Date of Consult: 12/18/20 Reason for Consult: evaluation of ckd stage 3 vs VONNIE Requesting Physician: Silviano Ramirez Chief Complaint: ACS r/o History of Present Illness: 70 y o male pt with hx of CABG due to CAD, HTN, DM 2, HLD admitted for work up of chest pain. he had c/ chest pain and he was subsequently admitted for work up. He denies any new symptoms today. he denied any issues with loss of appetite, fevr, chills, rigor, n/v or diarrhea. he had left sided hemiplegia. his creatinine was 1.87 on admission and after hydration, it trended down to 1.60. he does not have a hx of chronic NSAID use. Allergies NK Allergy (Uncoded 07/18/15 07:07) Unknown Home Medications: Acetaminophen 325 mg PO Q4H PRN 12/18/20 Aspirin 81 mg PO DAILY 12/18/20 Atorvastatin Calcium [Lipitor] 80 mg PO BEDTIME 12/18/20 Famotidine 20 mg PO DAILY 12/18/20 Fluoxetine HCl 10 mg PO DAILY 12/18/20 Insulin Glargine,Hum.rec.anlog [Lantus Solostar] 10 units SQ BID 12/18/20 Levetiracetam [Keppra] 1 tab BID 12/18/20 Levothyroxine Sodium [Levothyroxine] 25 mcg PO DAILY 12/18/20 Losartan Potassium 0.5 tab DAILY 12/18/20 Metformin HCl 1 tab DAILY 12/18/20 Ondansetron HCl [Zofran] 1 tab Q8H PRN 12/18/20 Sennosides [Senna] 8.6 mg PO DAILY 12/18/20 Ticagrelor [Brilinta*] 1 tab BID 12/18/20 Tramadol HCl [Ultram] 2 tab Q12H PRN 12/18/20 - Past Medical/Surgical History -: T2DM -: CAD MIx2 -: CVA -: HTN -: HLD -: hypothyroidism -: CABG x 2 - Social History Smoking Status: Former smoker Alcohol use: No CD- Drugs: No Caffeine use: No Place of Residence: Home Review of Systems General: Unremarkable Eyes: Unremarkable ENT: Unremarkable Respiratory: Unremarkable Cardiovascular: Chest Pain Gastrointestinal: Unremarkable Musculoskeletal: Unremarkable Integumentary: Unremarkable Neurological: Unremarkable Physical Examination Temp Pulse Resp BP Pulse Ox 98.4 F 72 16 162/72 H 99 12/18/20 04:00 12/18/20 04:00 12/18/20 04:00 12/18/20 04:00 12/18/20 04:00 General: Alert, Oriented x3 HEENT: Atraumatic, Normocephalic Neck: Supple Respiratory: Normal air movement Cardiovascular: Regular rate/rhythm, Normal S1 S2 Gastrointestinal: Soft and benign Musculoskeletal: No swelling Neurological: Normal speech, Cranial nerves 3-12 intact Laboratory Data (last 24 hrs) 12/17/20 20:37: PT 10.9, INR 0.95 12/17/20 20:37: WBC 10.00, Hgb 12.4 L, Hct 36.8 L, Plt Count 234 12/17/20 20:37: Sodium 136, Potassium 5.0, BUN 21 H, Creatinine 1.82 H, Glucose 131 H, Magnesium 1.9 D, Total Bilirubin 0.8, AST 13 L, ALT 17, Alkaline Lenora sphatase 75 Conclusions/Impression: Chest pain-ACS r/o started. troponin and ckmb trended. aspirin therapy started. Hx of CAD s/p CABG x2 vessel-management as per cardiology. Hypertension-Vitals per unit protocol and antihypertension. hyperlipidemia-statin therapy to be continued. DM type 2-SSI and carb restricted diet to be continued. CKD stage 3a- His creatinine and eGFR puts him at CKD stage 3. we will obtain renal US and urine protein/creatinine. we will follow trend of his renal function and dose meds for eGFR.
--- NOTE | 2020-12-18 09:02 | RAD REPORT ---
EXAM DESCRIPTION: CT Abdomen and Pelvis With Intravenous Contrast CLINICAL HISTORY: The patient is 70 years old and is Male; Abd pain;Flank pain TECHNIQUE: Axial computed tomography images of the abdomen and pelvis with intravenous contrast. S agittal and coronal reformatted images were created and reviewed. This CT exam was performed using one or more of the following dose reduction techniques: automated exposure control, adjustment of t he mA and/or kV according to patient size, and/or use of iterative reconstruction technique. COMPARISON: CT abdomen and pelvis 08/28/2019. FINDINGS: Lung bases: Unremarkable. No mass. No consolidation. ABDOMEN: Liver: Unremarkable. No mass. Gallbladder and bile ducts: Unremarkable. No calcified stones. No ductal dilation. Pancreas: Unremarkable. No mass. No ductal dilation. Spleen: Unremarkable. No splenomegaly. Adrenals: Unremarkable. No mass. Kidneys and ureters: Bilateral perinephric stranding which is likely chronic. 1.5 cm right renal cyst. ACR White Paper guidelines (Herbasia, et al. JACR 2018; 15(2):264-273) suggest no follow-up is necessary. No hydronephrosis. Stomach and bowel: Scattered colonic diverticula without evidence of diverticulitis. No obstruction. PELVIS: Appendix: No findings to suggest acute appendicitis. Bladder: Unremarkable. No mass. Reproductive: Unremarkable as visualized. ABDOMEN and PELVIS: Intraperitoneal space: Unremarkable. No free air. No significant fluid collection. Bones/joints: No acute fracture. No dislocation. Soft tissues: Subcutaneous emphysema and fat stranding along the lower left abdominal wall. Vasculature: Scattered atherosclerotic vascular calcifications. No abdominal aortic aneurysm. Lymph nodes: Unremarkable. No enlarged lymph nodes. IMPRESSION: Subcutaneous emphysema and fat stranding along the lower left abdominal wall. Correlat e with any history of subcutaneous injection, trauma, or surgery. No acute intra-abdominal finding. Electronically signed by: Prabhu Bucio MD 12/18/2020 12:37 AM CDT Due to temporary technical issues with the PACS/Fluency reporting system, reports are being signed by the in house radiologist without review as a courtesy to ensure prompt reporting. The interpreting r adiologist is fully responsible for the content of the report.
[2020-12-18 10:13] LABS: Urine Protein/Creatinine Ratio 0.18 ratio (<0.15)
[2020-12-18 10:50] LABS: Urine Appearance CLEAR (Clear); Urine Bilirubin NEGATIVE (Negative); Urine Blood NEGATIVE (Negative); Urine Color YELLOW (Yellow); Urine Glucose NEGATIVE (Negative); Urine Protein NEGATIVE (Negative); Urine Specific Gravity 1.015 (1.005-1.030); Urine pH 5.5 (5.0-7.0)
[2020-12-18 10:51] LABS: Urine Microscopic Reflex NO UMIC
--- NOTE | 2020-12-18 15:47 | CON ---
Date of Consultation: 12/18/2020 Reason For Consultation: Chest pain. History Of Present Illness: A 70-year-old male with history of coronary artery disease, post 2-vesse l CABG; history of hypertension; CVA; diabetes; and dyslipidemia, presented with chest pain, substern al while he was eating, vomited once with nausea. No shortness of breath. He is chest pain free at the present time. Very poor historian. Past Medical History: As outlined above. Medications: Refer to reconciliation sheet for detailed list. Allergies: NO KNOWN DRUG ALLERGIES. Family History: No premature coronary artery disease or cancer. Social History: He does not smoke or drink. Does not use any drugs. Review of Systems: All systems reviewed and they were negative except for what is mentioned in HPI. Physical Examination: Vital Signs: Temperature is 98.4, pulse 72, breathing at 16, blood pressure is 134/76, satting 97% o n room air. General: Pleasant elderly male, in no apparent distress. Head and Neck: Pupils are equal, reactive to light. Intact eye movements. No JVD. No cervical lym phadenopathy. Neck: Supple. Thyroid is not enlarged. Lungs: Clear to auscultation bilaterally. No rhonchi, rales, or crackles. No accessory muscle use. Heart: Regular rate and rhythm. No extra sounds. Abdomen: Soft, nontender. Bowel sounds positive. No organomegaly. No masses or hernia. No rigidi ty or rebound. Extremities: No edema, clubbing, or cyanosis. Intact pulses. Skin: No rash noted. Neurologic: Alert, awake, oriented x3. No acute focal deficits appreciated. Investigations: Creatinine is 1.62. Troponin less than 0.02. White blood cell count is 8.2, hemogl obin 11.6. CT scan of the abdomen showed subcutaneous emphysema suggestive of possible trauma. Ches t x-ray, no acute abnormalities. Assessment, Plan And Recommendations: Chest pain with known history of coronary artery disease. Car diac enzymes are negative. Please obtain a nuclear stress test and echocardiogram and further recomm endations accordingly. Continue aspirin and high-dose statin and I will follow the patient with you. If the stress test is abnormal, we will plan for further investigations with coronary angiogram. /TEDDY Voice ID: [id number] Report ID: [id number]
--- NOTE | 2020-12-18 17:05 | RAD REPORT ---
EXAM DESCRIPTION: MRI - Brain Wo Cont - 12/18/2020 4:35 pm CLINICAL HISTORY: Vertigo/h/o of CVA COMPARISON: No comparisons TECHNIQUE: Sagittal T1-weighted images were obtained along with axial PD, heavily T2-weighted and T2 -FLAIR images. Axial DWI and ADC mapping sequences were also obtained along with coronal heavily T2-w eighted images. FINDINGS: No intracranial hemorrhage, mass or acute infarction. There is no edema or shift of midlin e structures. There is a large area of encephalomalacia involving the right MCA supply portions of th e frontal and parietal lobes. There remains a thin rim of cortical tissue with gliosis of the subcort ical white matter and some gliosis of the cortex. Hypointense T1 and hyperintense T2 signal present a long the margins of this old CVA. CVA changes involve the external capsule and insular cortex. Huynh m atter - white matter junction is otherwise preserved. Atrophy changes are mild. Ventricles are in pro portion to volume loss. Scattered chronic ischemic changes are present in the cerebral white matter. Signal voids are seen as a normal finding in the major intracranial vessels. Post infarction volume l oss is present in the right cerebral peduncle and there is chronic ischemic signal extending into the right-side of the rod. No globe or orbital content abnormality. No sella or supra sella abnormality. Mastoid air cells and paranasal sinuses are clear. IMPRESSION: Large old right cerebral hemisphere CVA as detailed. No acute infarction changes are present. Patient has underlying mild atrophy and mild chronic ischemi c change.
--- NOTE | 2020-12-18 19:42 | RAD REPORT ---
EXAM DESCRIPTION: US - CP - 12/18/2020 5:59 pm CLINICAL HISTORY: Vertigo COMPARISON: No relevant comparison TECHNIQUE: Real-time sonographic evaluation of bilateral carotid and vertebral systems was performed . Huynh scale and Doppler interrogation were performed with waveform tracing bilaterally. FINDINGS: Normal high resistance waveforms are noted in both external carotid arteries. The common c arotid arteries and internal carotid arteries show normal low resistance waveforms. Mild plaquing changes are present with no significant degree of luminal narrowing seen. Patent stent is present distal CCA/bulb region on the right. Peak systolic and end diastolic velocity values and t he ICA/CCA ratios are in the non-hemodynamically significant range. Antegrade flow seen in the left vertebral artery. Right vertebral artery could not be adequately visu alized to allow assessment. Velocity values and ratios were recorded and are retained in the patient's imaging records. IMPRESSION: Mild plaquing changes are present not resulting in hemodynamically significant stenoses.
--- NOTE | 2020-12-18 19:44 | RAD REPORT ---
EXAM DESCRIPTION: US - Renal Ultrasound-Complete - 12/18/2020 5:59 pm CLINICAL HISTORY: eval of ckd stage 3 COMPARISON: Stone Protocol dated 12/17/2020 FINDINGS: The right kidney measures approximately 10.0 x 4.8. The left kidney measures approximatel y 9.4 x 5.8. Renal cortical thickness and echogenicity are normal. No hydronephrosis or suspicious re nal mass. A 16 millimeter upper pole right renal cyst is present. No bladder wall thickening or mass. No intraluminal stone or mass. IMPRESSION: No hydronephrosis or suspicious renal mass. No other significant findings.
[2020-12-18] MEDS ORDERED: ATORVASTATIN 40 MG TAB PO SCH (21:00)
[2020-12-19] MEDS: NA CHLORIDE 0.9% 1,000 ML IV SCH (00:39)
[2020-12-19] MEDS: HEPARIN 5000 UNIT/ML 1 ML VIAL SQ SCH ×3 (00:40→16:57)
[2020-12-19] MEDS: INSULIN -REGULAR HUMAN 50 UNIT/0.5 ML ML SQ SCH ×3 (07:30→16:57)
[2020-12-19] MEDS: ASPIRIN EC 81 MG TAB PO SCH (09:22)
[2020-12-19 11:17] VITALS: O2SAT 96
[2020-12-19 17:33] VITALS: BP 117/70; TEMP 98.1
--- NOTE | 2020-12-21 02:49 | P.DS ---
Discharge Date: 12/19/20 Disposition: ROUTINE DISCHARGE Discharge Condition: GOOD Reason for Admission: Chest pain rule out acute coronary syndrome Consultations: Cardiology Brief History of Present Illness: Mr. Hope is a 70 yo M with history of CAD (MIx2, s/pCABGx2), CVA, HTN, HLD, T2DM, hypothyroidism here today for 6/10 constant sternal chest pain that began this morning while he was eating. He feels back to baseline now. He reports nausea, vomiting and dizziness. Denies palpitations and vision changes. 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 Initial troponin wnl. BUN 21, Cr 1.82, GFR 37. Glu 131. BNP 1261. Hospital Course: Patient has done well during hospitalization. Patient will be followed by Cardiology. They recommended outpatient workup. Patient is clinically doing well. At this time, patient is stable for discharge home. Patient will follow up as an outpatient. Vital Signs/Physical Exam: Temp Pulse Resp BP Pulse Ox 98.1 F 78 16 117/70 98 12/19/20 16:00 12/19/20 16:00 12/19/20 16:00 12/19/20 16:00 12/19/20 16:00 General: Alert, In no apparent distress, Oriented x3 Laboratory Data at Discharge: WBC 8.20 K/uL (4.3-10.9) D 12/18/20 05:28 Hgb 11.6 g/dL (13.6-17.9) L 12/18/20 05:28 Hct 34.6 % (39.6-49.0) L 12/18/20 05:28 Plt Count 222 K/uL (152-406) 12/18/20 05:28 PT 10.9 SECONDS (9.5-12.5) 12/17/20 20:37 INR 0.95 12/17/20 20:37 Sodium 137 mmol/L (136-145) 12/18/20 05:28 Potassium 4.6 mmol/L (3.5-5.1) 12/18/20 05:28 BUN 22 mg/dL (7-18) H 12/18/20 05:28 Creatinine 1.62 mg/dL (0.55-1.3) H 12/18/20 05:28 Glucose 75 mg/dL (74-106) 12/18/20 05:28 Phosphorus 3.2 mg/dL (2.5-4.9) 12/18/20 05:28 Magnesium 1.9 mg/dL (1.8-2.4) 12/18/20 05:28 Total Bilirubin 0.7 mg/dL (0.2-1.0) 12/18/20 05:28 AST 13 U/L (15-37) L 12/18/20 05:28 ALT 15 U/L (12-78) 12/18/20 05:28 Alkaline Phosphatase 67 U/L (45-117) 12/18/20 05:28 Troponin I 0.02 ng/mL (0.0-0.045) 12/18/20 05:28 Triglycerides 156 mg/dL (<150) H 12/18/20 05:28 Cholesterol 97 mg/dL (<200) 12/18/20 05:28 HDL Cholesterol 48 mg/dL (40-60) 12/18/20 05:28 Cholesterol/HDL Ratio 2.02 12/18/20 05:28 Home Medications: Acetaminophen 325 mg PO Q4H PRN 12/18/20 Aspirin 81 mg PO DAILY 12/18/20 Atorvastatin Calcium [Lipitor] 80 mg PO BEDTIME 12/18/20 Famotidine 20 mg PO DAILY 12/18/20 Fluoxetine HCl 10 mg PO DAILY 12/18/20 Insulin Glargine,Hum.rec.anlog [Lantus Solostar] 10 units SQ BID 12/18/20 Levetiracetam [Keppra] 1 tab BID 12/18/20 Levothyroxine Sodium [Levothyroxine] 25 mcg PO DAILY 12/18/20 Losartan Potassium 0.5 tab DAILY 12/18/20 Metformin HCl 1 tab DAILY 12/18/20 Ondansetron HCl [Zofran] 1 tab Q8H PRN 12/18/20 Sennosides [Senna] 8.6 mg PO DAILY 12/18/20 Ticagrelor [Brilinta*] 1 tab BID 12/18/20 Tramadol HCl [Ultram] 2 tab Q12H PRN 12/18/20 Atorvastatin Calcium [Lipitor] 40 mg PO BEDTIME #30 tab 12/19/20 New Medications: Atorvastatin Calcium [Lipitor] 40 mg PO BEDTIME #30 tab Physician Discharge Instructions: PROBLEM: Acute coronary syndrome GOAL: Clear understanding of disease process INSTRUCTIONS: Diet: heart healthy Activity: Fall precautions OK TO DC IV AND DC HOME FOLLOW-UP WITH PRIMARY CARE PROVIDER IN 1-2 WEEKS FOLLOW-UP WITH CARDIOLOGY IN 1-2 WEEKS RETURN TO THE ER IF symptoms worsens CALL or TEXT DR. LEROY AT [phone] IF ANY QUESTIONS REGARDING HOSPITAL STAY. PLEASE CALL THE FLOOR AT [phone] IF ANY MEDICATION OR NURSING QUESTIONS. Diet: AHA Activity: Fall precautions Followup: Wai Aquino MD [ACTIVE - CAN ADMIT] - Unknown,U [Primary Care Provider] - Time spent managing pt's care (in minutes): 35
== END 2020-12-19 17:57 | disposition home or self-care (01) | DRG 313 ==
LOC: ER 20:18 → ERHOLD 23:41 → 2ND 12-18 01:16 → OBSVTOIN 12-19 10:01
PROVIDERS: ADMIT Hospitalist; ATTEND Hospitalist
DX: R07.9 Chest pain, unspecified (principal); G81.94 Hemiplegia, unspecified affecting left nondominant side; I25.700 Atherosclerosis of coronary artery bypass graft(s), unspecified, with unstable angina pectoris; K21.9 Gastro-esophageal reflux disease without esophagitis; E03.9 Hypothyroidism, unspecified; E78.5 Hyperlipidemia, unspecified; I12.9 Hypertensive chronic kidney disease with stage 1 through stage 4 chronic kidney disease, or unspecified chronic kidney disease; N18.31 Chronic kidney disease, stage 3a; E11.22 Type 2 diabetes mellitus with diabetic chronic kidney disease; I25.2 Old myocardial infarction; Z79.82 Long term (current) use of aspirin; Z79.4 Long term (current) use of insulin; Z79.899 Other long term (current) drug therapy; Z95.1 Presence of aortocoronary bypass graft; Z87.891 Personal history of nicotine dependence; Z79.890 Hormone replacement therapy; Z86.73 Personal history of transient ischemic attack (TIA), and cerebral infarction without residual deficits; Z20.822 Contact with and (suspected) exposure to COVID-19
CPT/HCPCS: 36415; 70551; 71045; 74176; 76377; 76770; 80048; 80053; 80061; 80076; 81003; 82570; 82947; 83036; 83735; 83880; 84100; 84156; 84439; 84443; 84484; 85025; 85610; 93005; 93880; 94760; 96361; 96372; 96374; 99285; G0378; J1644; J1650; J7030; J7040; U0003

== ENCOUNTER 2021-10-06 14:05 | Emergency (ER) | payer OTHER ==
--- OUTSIDE RECORDS SUMMARY | 2021-10-06 14:10 | XMS REPORT | Continuity of Care Document ---
:1950 Author Organization [facility] t Address [address] [place] [address] Care Team Providers Name Role Phone ORLY SMITH Attending Clinician Unavailable ORLY SMITH Admitting Clinician Unavailable Problems This patient has no known problems. Allergies, Adverse Reactions, Alerts Allergy Allergy Status Severity Reaction(s) Onset Inactive Treating Comm ents Source Name Type Date Date Clinician NO KNOWN Allergy Active [facility] Medications This patient has no known medications. Procedures This patient has no known procedures. Results Test Description Test Time Test Comments Results Result Comments Source BLOOD CULTURE 2018-11-23 02:01:00 Test Item Value Reference Range Interpretation Comme nts CULTURE (BEAKER) (test code = 1095) No growth in 5 days BLOOD [id number] 02:01:00 Test Item Value Reference Range Interpretation Comments CULTURE (BEAKER) (test No growth in 5 days code = 1095) POCT-GLUCOSE [id number] 17:22:00 Test Item Value Reference Range Interpretation Comments POC-GLUCOSE METER 212 mg/dL 70-110 H TESTED AT [facility] 6720 ([facility]) (test code = KLARISSAMALCOLM Rowe [facility] 1538) [address] POCT-GLUCOSE [id number] 12:44:00 Test Item Value Reference Range Interpretation Comments POC-GLUCOSE METER 229 mg/dL 70-110 H TESTED AT [facility] 6720 ([facility]) (test code = KWASI Rowe [facility] 1538) [address] POCT-GLUCOSE [id number] 06:22:00 Test Item Value Reference Range Interpretation Comments POC-GLUCOSE METER 211 mg/dL 70-110 H TESTED AT [facility] 6720 ([facility]) (test code = [facility] Soledad [facility] 1538) [address] BASIC METABOLIC [id number] 06:20:00 Test Item Value Reference Range Interpretation [...] 0-0 (BEAKER) (test code = 413) POCT-GLUCOSE [id number] 23:49:00 Test Item Value Reference Range Interpretation Comments POC-GLUCOSE METER 230 mg/dL 70-110 H TESTED AT [place] [address] (BEAKER) (test code = [facility] [place] 1538) [address] POCT-GLUCOSE [id number] 18:04:00 Test Item Value Reference Range Interpretation Comments POC-GLUCOSE METER 256 mg/dL 70-110 H TESTED AT [place] [address] (BEAKER) (test code = [facility] 1538) [address] URINALYSIS WITH MICROSCOPIC IF [id number] 14:11:00 Test Item Value Reference Range Interpretation [...] 463) SOURCE(BEAKER) (test code = 2795) POCT-GLUCOSE [id number] 12:12:00 Test Item Value Reference Range Interpretation Comments POC-GLUCOSE METER 227 mg/dL 70-110 H TESTED AT [place] [address] (BEAKER) (test code = [facility] 1538) [address] POCT-GLUCOSE [id number] 11:58:00 Test Item Value Reference Range Interpretation Comments POC-GLUCOSE METER 243 mg/dL 70-110 H TESTED AT [place] [address] (BEAKER) (test code = [facility] 1538) [address] BASIC METABOLIC [id number] 05:42:00 Test Item Value Reference Range Interpretation [...] 0-0 (BEAKER) (test code = 413) POCT-GLUCOSE [id number] 17:25:00 Test Item Value Reference Range Interpretation Comments POC-GLUCOSE METER 267 mg/dL 70-110 H TESTED AT [place] [address] (BEAKER) (test code = KWASI ACKERMAN 1538) 17483 URINALYSIS W/ REFLEX URINE [id number] 14:12:00 Test Item Value Reference Range Interpretation [...] Rare SOURCE(BEAKER) (test code = 2795) POCT-GLUCOSE [id number] 11:51:00 Test Item Value Reference Range Interpretation Comments POC-GLUCOSE METER 258 mg/dL 70-110 H TESTED AT [place] [address] (BEAKER) (test code = KWASI ACKERMAN 1538) [address] POCT-GLUCOSE [id number] 09:43:00 Test Item Value Reference Range Interpretation Comments POC-GLUCOSE METER 235 mg/dL 70-110 H TESTED AT [facility] [address] [facility] (test code = [place] 1538) [address] TROPONIN [id number] 05:55:00 Test Item Value Reference Range Interpretation Comments TROPONIN I (BEAKER) (test code = 1.66 ng/mL 0.00-0.03 397) Troponin I (TnI) levels [...] acute neurological disease, and persistent tachyarrhythmia.BASIC METABOLIC [id number] 05:53:00 Test Item Value Reference Range Interpretation [...] 0-0 (BEAKER) (test code = 413) POCT-GLUCOSE [id number] 01:42:00 Test Item Value Reference Range Interpretation Comments POC-GLUCOSE METER 239 mg/dL 70-110 H TESTED AT [facility] 6720 ([facility]) (test code = KWASI Rowe [place] 1538) [address] TROPONIN [id number] 00:15:00 Test Item Value Reference Range Interpretation Comments TROPONIN I (BEAKER) (test code = 1.73 ng/mL 0.00-0.03 397) Troponin I (TnI) levels [...] 463) SOURCE(BEAKER) (test code = 2795) URINALYSIS [id number] 00:06:00 Test Item Value Reference Range Interpretation Comments RBC UA (BEAKER) (test code = 519) 1 /HPF WBC UA (BEAKER) (test code = 520) 5 /HPF BACTERIA (BEAKER) (test code = 517) Rare MUCUS (BEAKER) (test code = 1574) Rare TROPONIN [id number] 18:49:00 Test Item Value Reference Range Interpretation Comments TROPONIN I (BEAKER) (test code = 1.45 ng/mL 0.00-0.03 HH 397) Troponin I (TnI) [...] acidosis, acute neurological disease, and persistent tachyarrhythmia.POCT-GLUCOSE [id number] 16:26:00 Test Item Value Reference Range Interpretation Comments POC-GLUCOSE METER 316 mg/dL 70-110 H Notified Soledad Michaels MD/TESTED (BEAKER) (test code = AT [facility] 6720 [place] 1538) [facility] 7703 0 POCT-GLUCOSE [id number] 13:27:00 Test Item Value Reference Range Interpretation Comments POC-GLUCOSE METER 272 mg/dL 70-110 H TESTED AT [facility] 6720 (BEAKER) (test code = [place] 1533) [address] TROPONIN [id number] 11:19:00 Test Item Value Reference Range Interpretation [...] acute neurological disease, and persistent tachyarrhythmia.BASIC METABOLIC [id number] 07:39:00 Test Item Value Reference Range Interpretation [...] NOT APPLICABLE FOR DIALYSIS PATIEN TS. TROPONIN [id number] 06:49:00 Test Item Value Reference Range Interpretation [...] acidosis, acute neurological disease, and persistent tachyarrhythmia.POCT-GLUCOSE [id number] 05:50:00 Test Item Value Reference Range Interpretation Comments POC-GLUCOSE METER 244 mg/dL 70-110 H TESTED AT [place] [address] (BEAKER) (test code = KWASI Rowe [place] 1538) [address] CBC (HEMOGRAM ONLY)2018-11-17 04:38:00 Test Item Value [...] 0-0 (BEAKER) (test code = 413) POCT-GLUCOSE [id number] 23:38:00 Test Item Value Reference Range Interpretation Comments POC-GLUCOSE METER 232 mg/dL 70-110 H TESTED AT [place] [address] (BEAKER) (test code = KWASI Rowe [place] 1538) [address] TROPONIN [id number] 18:59:00 Test Item Value Reference Range Interpretation Comments TROPONIN I (BEAKER) (test code = 0.02 ng/mL 0.00-0.03 397) [...] acidosis, acute neurological disease, and persistent tachyarrhythmia.POCT-GLUCOSE [id number] 18:22:00 Test Item Value Reference Range Interpretation Comments POC-GLUCOSE METER 244 mg/dL 70-110 H TESTED AT [facility] 6720 (BEAKER) (test code = KWASI Rowe [place] 1538) [address] BASIC METABOLIC [id number] 06:29:00 Test Item Value Reference Range Interpretation [...] (BEAKER) (test code = 412) PLATELET COUNT ([facility]) (test 379 K/CU MM 150-450 code = 756) MEAN PLATELET VOLUME (AKER) 10.6 fL 9.4-12.4 (test code = 754) NUCLEATED RED BLOOD CELLS 0 /100 WBC 0-0 ([facility]) (test code = 413) POCT-GLUCOSE [id number] 05:53:00 Test Item Value Reference Range Interpretation Comments POC-GLUCOSE METER 208 mg/dL 70-110 H TESTED AT [place] [address] ([facility]) (test code = KWASI Rowe [place] 1538) [address] POCT-GLUCOSE [id number] 23:49:00 Test Item Value Reference Range Interpretation Comments POC-GLUCOSE METER 221 mg/dL 70-110 H TESTED AT [place] [address] ([facility]) (test code = KWASI Rowe [place] 1538) [address] POCT-GLUCOSE [id number] 17:37:00 Test Item Value Reference Range Interpretation Comments POC-GLUCOSE METER 237 mg/dL 70-110 H TESTED AT [place] [address] ([facility]) (test code = KWASI Rowe [place] 1538) [address] POCT-GLUCOSE [id number] 12:33:00 Test Item Value Reference Range Interpretation Comments POC-GLUCOSE METER 223 mg/dL 70-110 H TESTED AT [place] [address] ([facility]) (test code = KWASI Rowe [place] 1538) [address] POCT-GLUCOSE [id number] 06:38:00 Test Item Value Reference Range Interpretation Comments POC-GLUCOSE METER 247 mg/dL 70-110 H TESTED AT [facility] 6720 (BEAKER) (test code = [place] 1538) [address] BASIC METABOLIC [id number] 06:01:00 Test Item Value Reference Range Interpretation [...] 0-0 (BEAKER) (test code = 413) POCT-GLUCOSE [id number] 02:35:00 Test Item Value Reference Range Interpretation Comments POC-GLUCOSE METER 220 mg/dL 70-110 H TESTED AT [place] [address] (BEAKER) (test code = [facility] 1538) 15812 POCT-GLUCOSE [id number] 16:55:00 Test Item Value Reference Range Interpretation Comments POC-GLUCOSE METER 239 mg/dL 70-110 H TESTED AT [place] [address] ([facility]) (test code = [facility] 1538) [address]36 POCT-GLUCOSE [id number] 12:09:00 Test Item Value Reference Range Interpretation Comments POC-GLUCOSE METER 246 mg/dL 70-110 H TESTED AT [place] [address] ([facility]) (test code = [facility] 1538) 78773 BASIC METABOLIC [id number] 05:52:00 Test Item Value Reference Range Interpretation [...] NOT APPLICABLE FOR DIALYSIS PATIEN TS. POCT-GLUCOSE [id number] 05:37:00 Test Item Value Reference Range Interpretation Comments POC-GLUCOSE METER 181 mg/dL 70-110 H TESTED AT [place] [address] ([facility]) (test code = KWASI Rowe [place] 1538) [address] CBC (HEMOGRAM ONLY)2018-11-14 05:37:00 Test Item Value [...] 0-0 (BEAKER) (test code = 413) POCT-GLUCOSE [id number] 00:10:00 Test Item Value Reference Range Interpretation Comments POC-GLUCOSE METER 225 mg/dL 70-110 H TESTED AT [place] [address] ([facility]) (test code = KWASI Rowe [place] 1538) [address] POCT-GLUCOSE [id number] 17:58:00 Test Item Value Reference Range Interpretation Comments POC-GLUCOSE METER 221 mg/dL 70-110 H TESTED AT [place] [address] ([facility]) (test code = KWASI Rowe [place] 1538) [address] CT, SPINE, CERVICAL, WO [id number] 15:33:00FINAL REPORT EXAM: CERVICAL SPINE CT WITHOUT [...] MDReport Verified Date/Time: 11/13/2018 15:33:48 Reading Location: [facility] Radiology Reading Room CT, BRAIN, WITHOUT [id number] 15:22:00FINAL REPORT CT head without contrast. Reason [...] increased amount of petechial hemorrhage. Signed: Bethany Parkereport Verified Date/Time: 11/13/2018 15:22:34 Reading Location: [address] Consult Reading Room POCT-GLUCOSE [id number] 12:10:00 Test Item Value Reference Range Interpretation Comments POC-GLUCOSE METER 218 mg/dL 70-110 H TESTED AT [facility] 6720 (BEAKER) (test code = [place] 1538) [address] BASIC METABOLIC [id number] 08:05:00 Test Item Value Reference Range Interpretation [...] PATIEN TS. CBC W/PLT COUNT & AUTO [id number] 08:02:00 Test Item Value Reference Range Interpretation [...] % 0-1 PERCENT (BEAKER) (test code = 2805) POCT-GLUCOSE [id number] 05:35:00 Test Item Value Reference Range Interpretation Comments POC-GLUCOSE METER 190 mg/dL 70-110 H TESTED AT [facility] 6720 (BEAKER) (test code = KWASI ACKERMAN 1538) [address] POCT-GLUCOSE [id number] 00:25:00 Test Item Value Reference Range Interpretation Comments POC-GLUCOSE METER 193 mg/dL 70-110 H TESTED AT [facility] 6720 ([facility]) (test code = [place] 1538) [address] POCT-GLUCOSE [id number] 18:09:00 Test Item Value Reference Range Interpretation Comments POC-GLUCOSE METER 204 mg/dL 70-110 H TESTED AT [facility] 6720 ([facility]) (test code = [place] 1538) [address] CORDELIA, CAROTID STENT W [id number] 14:42:00Reason for exam:->R carotid stent for carotid stenosisFINAL REPORT DATE OF PROCEDURE: 11/07/2018 SURGEON: Garrett Echevarria M.D. ART GLASS SETTER: Lon Lopez MD PREOPERATIVE DIAGNOSIS: Right hemispheric stroke with severe right carotid artery stenosis POST OPERATIVE DIAGNOSIS: Right hemispheric stroke with severe right carotid artery stenosis OPERATION: 1) Cerebral Angiogram2) right carotid stent IMPLANTS: Precise Pro Stent 1q73Jsot stent 8-6 x 40 ANESTHESIA: Moderate sedation [...] Serial dilation was performedand then a 9 Samoan short sheath was placed in the right common femoral artery and placed on heparinized flush. Angiography was performed via the sheath confirmed satisfactory placement. A 5 Samoan diagnostic glide catheter was then used to [...] MDReport Verified Date/Time: 11/12/2018 14:42:01 Reading Location: [facility] Y026 Neuro Angio Reading Room [place], ANGIOGRAM, [id number] 14:41:00Reason for exam:->right ICA stenosisFINAL REPORT DATE OF PROCEDURE: November 05, 2018 SURGEON: Garrett Echevarria M.D. ART GLASS SETTER: Lon Lopez MD PREOPERATIVE DIAGNOSIS: Right carotid [...] and hemostasis was achieved with a 6- Samoan AngioSeal closuredevice. The patient tolerated the procedure [...] MDReport Verified Date/Time: 11/12/2018 14:41:58 Reading Location: [facility] [id number] Neuro Angio Reading Room POCT- GLUCOSE [id number] 12:37:00 Test Item Value Reference Range Interpretation Comments POC-GLUCOSE METER 157 mg/dL 70-110 H TESTED AT [place] [address] [facility] (test code = [facility] 1538) [address] POCT-GLUCOSE [id number] 06:41:00 Test Item Value Reference Range Interpretation Comments POC-GLUCOSE METER 176 mg/dL 70-110 H TESTED AT [place] [address] (BEAKER) (test code = [facility] 1538) 14241 BASIC METABOLIC [id number] 06:30:00 Test Item Value Reference Range Interpretation [...] 0-0 (BEAKER) (test code = 413) POCT-GLUCOSE [id number] 00:14:00 Test Item Value Reference Range Interpretation Comments POC-GLUCOSE METER 199 mg/dL 70-110 H TESTED AT [place] [address] ([facility]) ([facility] 1538) [address] POCT-GLUCOSE [id number] 17:13:00 Test Item Value Reference Range Interpretation Comments POC-GLUCOSE METER 221 mg/dL 70-110 H TESTED AT [place] [address] ([facility]) (test code = KWASI Rowe [facility] 1538) [address] POCT-GLUCOSE [id number] 12:47:00 Test Item Value Reference Range Interpretation Comments POC-GLUCOSE METER 184 mg/dL 70-110 H TESTED AT [place] [address] ([facility]) (test code = KWASI Rowe [facility] 1538) [address] BASIC METABOLIC [id number] 06:22:00 Test Item Value Reference Range Interpretation [...] NOT APPLICABLE FOR DIALYSIS PATIEN TS. POCT-GLUCOSE [id number] 06:07:00 Test Item Value Reference Range Interpretation Comments POC-GLUCOSE METER 183 mg/dL 70-110 H TESTED AT [facility] 6720 ([facility]) (test code = [facility] Soledad [facility] 1538) [address]34 CBC (HEMOGRAM ONLY)2018-11-11 05:13:00 Test Item Value [...] MEAN CORPUSCULAR HEMOGLOBIN CONC 33.1 GM/DL 32.3-36.5 (AKER) (test code = 752) RED CELL DISTRIBUTION WIDTH 14.7 % 11.6-14.4 H (BEAKER) (test code = 412) PLATELET COUNT (AKER) (test 287 K/CU MM 150-450 code = 756) MEAN PLATELET VOLUME (AKER) 10.5 fL 9.4-12.4 (test code = 754) NUCLEATED RED BLOOD CELLS 0 /100 WBC 0-0 (BEAKER) (test code = 413) POCT-GLUCOSE [id number] 00:14:00 Test Item Value Reference Range Interpretation Comments POC-GLUCOSE METER 176 mg/dL 70-110 H TESTED AT [place] [address] ([facility]) (test code = [facility] 1538) [address] POCT-GLUCOSE [id number] 17:43:00 Test Item Value Reference Range Interpretation Comments POC-GLUCOSE METER 195 mg/dL 70-110 H TESTED AT [place] [address] ([facility]) (test code = [facility] 1538) [address] POCT-GLUCOSE [id number] 12:08:00 Test Item Value Reference Range Interpretation Comments POC-GLUCOSE METER 170 mg/dL 70-110 H TESTED AT [place] [address] ([facility]) (test code = [facility] 1538) [address] BASIC METABOLIC [id number] 07:13:00 Test Item Value Reference Range Interpretation [...] NOT APPLICABLE FOR DIALYSIS PATIEN TS. POCT-GLUCOSE [id number] 06:08:00 Test Item Value Reference Range Interpretation Comments POC-GLUCOSE METER 178 mg/dL 70-110 H TESTED AT [facility] 67 (BEAKER) (test code = KWASI Rowe [place] 1538) [address] CBC (HEMOGRAM ONLY)2018 05:55:00 Test Item Value [...] 0-0 (BEAKER) (test code = 413) POCT-GLUCOSE [id number] 01:11:00 Test Item Value Reference Range Interpretation Comments POC-GLUCOSE METER 160 mg/dL 70-110 H TESTED AT [facility] 6720 (BEAKER) (test code = KWASI Rowe [place] 1538) [address] POCT-GLUCOSE [id number] 12:18:00 Test Item Value Reference Range Interpretation Comments POC-GLUCOSE METER 147 mg/dL 70-110 H TESTED AT [facility] 6720 (BEAKER) (test code = KWASI Rowe [place] 1538) [address] POCT-GLUCOSE [id number] 08:20:00 Test Item Value Reference Range Interpretation Comments POC-GLUCOSE METER 155 mg/dL 70-110 H TESTED AT [facility] 6720 (BEAKER) (test code = KWASI Rowe [place] 1538) [address] BASIC METABOLIC [id number] 06:07:00 Test Item Value Reference Range Interpretation [...] MEAN CORPUSCULAR HEMOGLOBIN CONC 34.0 GM/DL 32.3-36.5 ([facility]) (test code = 752) RED CELL DISTRIBUTION WIDTH 14.3 % 11.6-14.4 ([facility]) (test code = 412) PLATELET COUNT ([facility]) (test 252 K/CU MM 150-450 code = 756) MEAN PLATELET VOLUME (AKER) 10.0 fL 9.4-12.4 (test code = 754) NUCLEATED RED BLOOD CELLS 0 /100 WBC 0-0 ([facility]) (test code = 413) POCT-GLUCOSE [id number] 23:57:00 Test Item Value Reference Range Interpretation Comments POC-GLUCOSE METER 140 mg/dL 70-110 H TESTED AT [place] [address] ([facility]) (test code = [facility] 1538) 12735 POCT-GLUCOSE [id number] 17:30:00 Test Item Value Reference Range Interpretation Comments POC-GLUCOSE METER 127 mg/dL 70-110 H TESTED AT [place] [address] ([facility]) (test code = [facility] 1538) 39609 POCT-GLUCOSE [id number] 11:54:00 Test Item Value Reference Range Interpretation Comments POC-GLUCOSE METER 133 mg/dL 70-110 H TESTED AT [place] [address] ([facility]) (test code = [facility] 1538) 8[address]73 POCT-GLUCOSE [id number] 06:37:00 Test Item Value Reference Range Interpretation Comments POC-GLUCOSE METER 110 mg/dL 70-110 TESTED AT [place] [address] ([facility]) (test code = [facility] 1538) [address] BASIC METABOLIC [id number] 06:28:00 Test Item Value Reference Range Interpretation Comments SODIUM (BEAKER) 136 meq/L 136-145 (test code = 381) POTASSIUM (BEAKER) 4.4 meq/L 3.5-5.1 (test code = 379) CHLORIDE (BEAKER) 110 meq/L 98-107 H (test code = 382) CO2 (AKER) (test 20 meq/L 22-29 L code = 355) BLOOD UREA NITROGEN 15 mg/dL 7-21 ([facility]) (test code = 354) CREATININE (BEAKER) 0.74 [...] 0-0 (BEAKER) (test code = 413) POCT-GLUCOSE [id number] 01:21:00 Test Item Value Reference Range Interpretation Comments POC-GLUCOSE METER 131 mg/dL 70-110 H TESTED AT [facility] 6720 (BEAKER) (test code = KWASI A[place] 1538) [address] POCT-GLUCOSE [id number] 18:16:00 Test Item Value Reference Range Interpretation Comments POC-GLUCOSE METER 159 mg/dL 70-110 H TESTED AT [place] [address] ([facility]) (test code = [place] 1538) [address] [id number] 15:58:00 Test Item Value Reference Range Interpretation Comments ACTIVATED CLOTTING TIME 252 sec TEST ED AT [place] [address] ([facility]) (test code = [place] 441) [address] POCT-GLUCOSE [id number] 13:49:00 Test Item Value Reference Range Interpretation Comments POC-GLUCOSE METER 155 mg/dL 70-110 H TESTED AT [facility] 67 ([facility]) (test code = [place] 1538) [address] POCT-P2Y12 PLATELET [id number] 12:44:00 Test Item Value Reference Range Interpretation Comments POC-P2Y12 PLATELET AGG ([facility]) (test 83 PRU code = 2303) RANGE INFORMATION: PRU reference range is 194-418. Post Drug Results: Lower PRU levels are associated with expected antiplatelet effect. Values may be below the stated reference range above. The post-drug PRU values reported in the [employer]Now P2Y12 package insert are [id number].CT, BRAIN, WITHOUT [id number] 09:26:[address], BRAIN, WITHOUT CONTRAST [...] MDReport Verified Date/Time: 11/07/2018 09:26:55 Reading Location: [address] Neuro Reading Room POCT-GLUCOSE [id number] 06:41:00 Test Item Value Reference Range Interpretation Comments POC-GLUCOSE METER 186 mg/dL 70-110 H TESTED AT [facility] 6720 ([facility]) (test code = KLARISSAMALCOLM [place] 1538) [address] POCT-P2Y12 PLATELET [id number] 06:16:00 Test Item Value Reference Range Interpretation Comments POC-P2Y12 PLATELET AGG (BEAKER) (test 247 PRU code = 2303) RANGE INFORMATION: PRU reference range is 194-418. Post Drug Results: Lower PRU levels are associated with expected antiplatelet effect. Values may be below the stated reference range above. The post-drug PRU values reported in the [employer] P2Y12 package insert are [id number].BASIC METABOLIC [id number] 06:01:00 Test Item Value Reference Range Interpretation [...] 0-0 (BEAKER) (test code = 413) POCT-GLUCOSE [id number] 23:34:00 Test Item Value Reference Range Interpretation Comments POC-GLUCOSE METER 173 mg/dL 70-110 H TESTED AT [facility] 6720 (BEAKER) (test code = KWASI Rowe [facility] 1538) [address] RAD, ABDOMEN/KUB, 1 VIEW [id number] 19:42:00Reason for exam:->verify corpak placementShould this be [...] component of dysmotility with constipation. Signed: Shruthi Neumannort Verified Date/Time: 11/06/2018 19:42:40 Reading Location: [address] Reading Room POCT-GLUCOSE [id number] 18:59:00 Test Item Value Reference Range Interpretation Comments POC-GLUCOSE METER 143 mg/dL 70-110 H TESTED AT [place] [address] ([facility]) (test code = [facility] 1538) [address] POCT-GLUCOSE [id number] 14:46:00 Test Item Value Reference Range Interpretation Comments POC-GLUCOSE METER 169 mg/dL 70-110 H TESTED AT [place] [address] ([facility]) (test code = [facility] 1538) [address] FL, ESOPH, SWALLOW FUNCTION, WITH CINE OR [id number] 14:10:00Reason for exam:->dysphagiaFINAL REPORT Modified barium swallow [...] pathology report for further details. Signed: Everton Garcesort Ve rified Date/Time: 11/06/2018 14:10:54 Reading Location: [facility] C013X [facility] [id number] 06:28:00 Test Item Value Reference Range Interpretation [...] NOT APPLICABLE FOR DIALYSIS PATIEN TS. POCT-GLUCOSE [id number] 06:19:00 Test Item Value Reference Range Interpretation Comments POC-GLUCOSE METER 216 mg/dL 70-110 H TESTED AT [facility] 6720 ([facility]) (test code = KWASI STORM [place] 1538) [id number] CBC (HEMOGRAM ONLY)2018-11-06 05:54:00 Test Item Value [...] 0-0 (BEAKER) (test code = 413) POCT-GLUCOSE [id number] 01:34:00 Test Item Value Reference Range Interpretation Comments POC-GLUCOSE METER 175 mg/dL 70-110 H TESTED AT [place] [address] ([facility]) ([facility] 1538) [id number] POCT-GLUCOSE [id number] 19:12:00 Test Item Value Reference Range Interpretation Comments POC-GLUCOSE METER 150 mg/dL 70-110 H TESTED AT [place] [address] ([facility]) (test code = [facility] 1538) [id number] POCT-GLUCOSE [id number] 11:28:00 Test Item Value Reference Range Interpretation Comments POC-GLUCOSE METER 169 mg/dL 70-110 H TESTED AT [place] [address] ([facility]) (test code = [facility] 1538) [address] BASIC METABOLIC [id number] 07:23:00 Test Item Value Reference Range Interpretation [...] 358) GLUCOSE RANDOM 156 mg/dL 70-105 H [facility] (test code = 652) CALCIUM (BEAKER) 9.3 mg/dL 8.4-10.2 (test code = 697) EGFR (BEAKER) (test 99 mL/min/1.73 ESTIMA CEDRICK GFR IS code = 1092) sq m NOT ACCURATE CREATININE CLEARANCE IN PREDICTING GLOMERULAR FILTRATION RATE . ESTIMATED GFR I S NOT APPLICABLE FOR DIALYSIS PATIEN TS. POCT-GLUCOSE [id number] 06:37:00 Test Item Value Reference Range Interpretation Comments POC-GLUCOSE METER 158 mg/dL 70-110 H TESTED AT [place] [address] ([facility]) (test code = [facility] 1538) [id number] 05:42:00 Test Item Value Reference Range Interpretation [...] 0-0 (BEAKER) (test code = 413) POCT-GLUCOSE [id number] 23:19:00 Test Item Value Reference Range Interpretation Comments POC-GLUCOSE METER 231 mg/dL 70-110 H TESTED AT [facility] 6720 (BEAKER) (test code = [place] 1532) [id number] POCT-GLUCOSE [id number] 18:05:00 Test Item Value Reference Range Interpretation Comments POC-GLUCOSE METER 245 mg/dL 70-110 H TESTED AT [facility] 6720 (BEAKER) (test code = KWASI Rowe [facility] 1538) [address] POCT-GLUCOSE [id number] 12:49:00 Test Item Value Reference Range Interpretation Comments POC-GLUCOSE METER 197 mg/dL 70-110 H TESTED AT [facility] 6720 (BEAKER) (test code = KLARISSAMS [place] [facility] 1538) [address] BASIC METABOLIC [id number] 09:31:00 Test Item Value Reference Range Interpretation [...] (BEAKER) (test code = 412) PLATELET COUNT (AKER) (test 180 K/CU MM 150-450 code = 756) MEAN PLATELET VOLUME (BEAKER) 11.7 fL 9.4-12.4 (test code = 754) NUCLEATED RED BLOOD CELLS 0 /100 WBC 0-0 (AKER) (test code = 413) POCT-GLUCOSE [id number] 23:44:00 Test Item Value Reference Range Interpretation Comments POC-GLUCOSE METER 187 mg/dL 70-110 H TESTED AT [place] [address] ([facility]) (test code = [place] 1538) [id number] POCT-GLUCOSE [id number] 17:30:00 Test Item Value Reference Range Interpretation Comments POC-GLUCOSE METER 231 mg/dL 70-110 H TESTED AT [place] [address] ([facility]) (test code = KWASI Rowe [facility] 1538) [id number] POCT-GLUCOSE [id number] 12:40:00 Test Item Value Reference Range Interpretation Comments POC-GLUCOSE METER 205 mg/dL 70-110 H TESTED AT [place] [address] ([facility]) (test code = KWASI Rowe [facility] 1538) [address] BASIC METABOLIC [id number] 08:48:00 Test Item Value Reference Range Interpretation [...] 697) EGFR (BEAKER) (test 96 mL/min/1.73 ESTIMA CEDRICK GFR IS code = 1092) sq m NOT ACCURATE CREATININE CLEARANCE IN PREDICTING GLOMERULAR FILTRATION RATE . ESTIMATED GFR I S NOT APPLICABLE FOR DIALYSIS PATIEN TS. POCT-GLUCOSE [id number] 06:30:00 Test Item Value Reference Range Interpretation Comments POC-GLUCOSE METER 153 mg/dL 70-110 H TESTED AT [facility] 6720 (BEAKER) (test code = [place] 1538) [address] CBC (HEMOGRAM ONLY)2018-11-03 05:19:00 Test Item Value [...] 0-0 (BEAKER) (test code = 413) POCT-GLUCOSE [id number] 23:20:00 Test Item Value Reference Range Interpretation Comments POC-GLUCOSE METER 133 mg/dL 70-110 H TESTED AT [facility] 6720 (BEAKER) (test code = [place] 1538) [id number] POCT-GLUCOSE [id number] 17:27:00 Test Item Value Reference Range Interpretation Comments POC-GLUCOSE METER 107 mg/dL 70-110 TESTED AT [facility] 6720 (BEAKER) (test code = KWAS[place] Row[place] 1538) [id number] POCT-GLUCOSE [id number] 09:07:00 Test Item Value Reference Range Interpretation Comments POC-GLUCOSE METER 101 mg/dL 70-110 TESTED AT [place] [address] (BEAKER) (test code = KWASI Rowe [facility] 1538) [address]101 TROPONIN [id number] 07:02:00 Test Item Value Reference Range Interpretation [...] acute neurological disease, and persistent tachyarrhythmia.BASIC METABOLIC [id number] 06:55:00 Test Item Value Reference Range Interpretation [...] 0-100 H (test code = 700) PROTHROMBIN [id number] 06:35:00 Test Item Value Reference Range Interpretation [...] 0-0 (BEAKER) (test code = 413) POCT-GLUCOSE [id number] 05:55:00 Test Item Value Reference Range Interpretation Comments POC-GLUCOSE METER 114 mg/dL 70-110 H TESTED AT [place] [address] ([facility]) (test code = KWASI Rowe [facility] 1538) [id number] POCT-GLUCOSE [id number] 23:27:00 Test Item Value Reference Range Interpretation Comments POC-GLUCOSE METER 133 mg/dL 70-110 H TESTED AT [place] [address] ([facility]) (test code = KWASI Rowe [facility] 1538) [address] RAD, ABDOMEN/KUB, 1 VIEW [id number] 18:35:00Reason for exam:->To check NG TUbe positionFINAL REPORT INDICATION:Confirm feeding tube placement. TECHNIQUE: Abdomen radiograph one view. FINDINGS / IMPRESSION:There is a feeding tube that follows the course of the stomach with the tip projecting over the gastric antrum. Visualized bowel gas pattern is unremarkable. Osseous structures unremarkable. Signed: Bora Hawk MDReport Verified Date/Time: 11/01/2018 18:35:02 Reading Location: [facility] C013W Consult Reading Room -GLUCOSE [id number] 17:52:00 Test Item Value Reference Range Interpretation Comments POC-GLUCOSE METER 134 mg/dL 70-110 H TESTED AT [place] [address] ([facility]) (test code = KWASI Rowe [facility] 1538) [address] POCT-GLUCOSE [id number] 15:42:00 Test Item Value Reference Range Interpretation Comments POC-GLUCOSE METER 135 mg/dL 70-110 H TESTED AT [place] [address] ([facility]) (test code = KWASI Rowe [facility] 1538) [address] [id number] 06:25:00 Test Item Value Reference Range Interpretation Comments MAGNESIUM [facility] (test code = 2.3 mg/dL 1.6-2.6 627) COMPREHENSIVE METABOLIC [id number] 06:25:00 Test Item Value Reference Range Interpretation Comments TOTAL PROTEIN 5.9 gm/dL 6.0-8.3 L ([facility]) (test code = 770) ALBUMIN (BEAKER) 3.3 [...] PATIEN TS. CBC W/PLT COUNT & AUTO [id number] 06:11:00 Test Item Value Reference Range Interpretation [...] (test code = 2801) CT, BRAIN, WITHOUT [id number] 05:58:00FINAL REPORT EXAM: CT head without contrast. [...] hematoma cannot be excluded Signed: Brenda Pandya [facility] Verified Date/Time: 11/01/2018 05:58:05 Reading Location: [address] Body Reading Room Electronically signed by: Eugenia GLEZ 11/01/2018 05:58 AMPOCT-GLUCOSE [id number] 23:14:00 Test Item Value Reference Range Interpretation Comments POC-GLUCOSE METER 165 mg/dL 70-110 H TESTED AT [place] [address] ([facility]) (test code = KWASI Rowe [place] [address]) [address] [address], CTANGIO [id number] 18:44:00FINAL REPORT CT, CTANGIO BRAIN, CT, CAROTID, [...] carotid artery is widely patent extracranially. Nonvascular findings:Qofm-vc-bgzfkcme degenerative changes are present in the cervical [...] MDReport Verified Date/Time: 10/31/2018 18:44:42 Reading Location: [address] Neuro Reading Room CT, CAROTID, [id number] 18:44:00FINAL REPORT CT, CTANGIO BRAIN, CT, CAROTID, [...] carotid artery is widely patent extracranially. Nonvascular findings:Hdnv-gi-xfetifuu degenerative changes are present in the cervical [...] right middle branches. Signed: Elpidio lynn JR, Keenan Navarro Verified Date/Time: 10/31/2018 18:44:42 Reading Location: [address] Neuro Reading Room [id number] 14:17:00 Test Item Value Reference Range Interpretation Comments RPR SCREEN (BEAKER) (test code = Nonreactive Nonreactive 420) CBC W/PLT COUNT & AUTO [id number] 12:54:00 Test Item Value Reference Range Interpretation [...] 3438) Received comment: User comments: Slide comments:HEMOGLOBIN [id number] 11:05:00 Test Item Value Reference Range Interpretation Comments HEMOGLOBIN A1C (BEAKER) (test code = 8.4 % 4.3-6.1 H 368) VITAMIN [id number] 07:43:00 Test Item Value Reference Range Interpretation Comments VITAMIN B12 (BEAKER) (test code = 595 pg/mL 213-816 774) TROPONIN [id number] 07:21:00 Test Item Value Reference Range Interpretation [...] acidosis, acute neurological disease, and persistent tachyarrhythmia.C-REACTIVE [id number] 07:16:00 Test Item Value Reference Range Interpretation Comments C-REACTIVE PROTEIN (BEAKER) (test 4.19 mg/dL 0.00-0.50 H code = 676) TSH/FREE T4 IF [id number] 06:15:00 Test Item Value Reference Range Interpretation Comments THYROID STIMULATING HORMONE 2.46 uIU/mL 0.35-4.94 (BEAKER) (test code = 772) [id number] 05:54:00 Test Item Value Reference Range Interpretation [...] 2.5-3.5 for patients with mechanical heart valves.LIPID [id number] 05:51:00 Test Item Value Reference Range Interpretation [...] 130-159 High 160-189 Very High >=190COMPREHENSIVE METABOLIC [id number] 05:51:00 Test Item Value Reference Range Interpretation [...]
[2021-10-06] MEDS ORDERED: ACETAMINOPHEN 325 MG TABLET ONE (14:55)
--- NOTE | 2021-10-06 14:56 | RAD REPORT ---
EXAM DESCRIPTION: CT - CTHCSPWOC - 10/06/2021 2:39 pm CLINICAL HISTORY: head injury, fall, headache, neck pain COMPARISON: Head C Spine Mpr Wo Con dated 07/18/2019 TECHNIQUE: Axial 5 mm thick images of the head were obtained. Axial 2 mm thick images of the cervic al spine were obtained with sagittal and coronal reconstruction images generated and reviewed. All CT scans are performed using dose optimization technique as appropriate and may include automated exposure control or mA/KV adjustment according to patient size. FINDINGS: No intracranial hemorrhage, mass, edema or acute intracranial finding. No acute cortical b ased infarction. No cortical edema or sulcal effacement. 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 This is a stable presentation. Ventricles are in proporti on to volume loss. Mastoid air cells are clear. Air-fluid level seen in the sphenoid sinus. No globe or orbital content abnormality. Cervical bodies are normal in height. There is slight retrolisthesis of C5-C6. Significant degenerati ve disc disease present C4-5, C5-6 and C6-7. This has progressed since 2019 comparison. Posterior end plate spurring changes are present. Uncovertebral joint and facet joint degenerative changes are pres ent causing moderate right foraminal stenosis at C4-5, moderate left foraminal stenosis at C5-6 advan araceli bilateral foraminal stenosis C6-7. No fracture or acute bony abnormality. Central canal detail i s inherently limited. No paraspinal mass or hematoma. Right carotid stent is in place from bulb the skullbase. IMPRESSION: No acute intracranial finding above detailed 2019 imaging. Advanced cervical spine degenerative changes are present progressive from 2019. No acute findings see n.
--- NOTE | 2021-10-06 15:06 | EDPHYS ---
Physician Documentation [facility] Name: Zain Hope Age: 70 yrs Sex: Male : 1950 Arrival Date: 10/06/2021 Time: 14:12 Bed 14 Private MD: ED Physician John Cline HPI: 10/06 14:17 This 70 yrs old Male presents to ER via EMS with complaints of Fall Injury. [facility] 14:17 Details of fall: The patient fell from an upright position. Onset: The symptoms/episode jmm began/occurred acutely, just prior to arrival. Associated injuries: The patient sustained injury to the head. Severity of symptoms: At their worst the symptoms were mild. It is unknown whether or not the patient has had similar symptoms in the past. Patient also complains of neck pain. Denies loss consciousness, nausea. Patient states he does take anticoagulants.. Historical: - PMHx: 14:26 CAD; CVA; Depression; GERD; Hypertension; Diabetes - NIDDM; Hyperlipidemia; DYSPHAGIA; cb5 Hypothyroidism; - Immunization history:: Adult Immunizations up to date. - Social history:: Smoking status: . ROS: 14:26 Constitutional: Negative for fever, chills, and weight loss. jmm 14:26 Cardiovascular: Negative for chest pain, palpitations, and edema, Respiratory: Negative for shortness of breath, cough, wheezing, and pleuritic chest pain. 14:26 Neck: Positive for pain at rest. 14:26 Abdomen/GI: Negative for nausea and vomiting. 14:26 Neuro: Positive for headache. 14:26 All other systems are negative. Exam: 14:26 Constitutional: This is a well developed, well nourished patient who is awake, alert, jmm and in no acute distress. 14:26 Eyes: EOMI, no conjunctival erythema appreciated ENT: Moist Mucus Membranes Neck: Trachea midline, Supple Chest/axilla: Normal chest wall appearance and motion. Cardiovascular: Regular rate and rhythm. No edema appreciated Respiratory: Normal respirations, no respiratory distress appreciated Abdomen/GI: Non distended, soft Back: Normal ROM Skin: General appearance color normal MS/ Extremity: Moves all extremities, no obvious deformities appreciated, no edema noted to the lower extremities Neuro: Awake and alert Psych: Behavior is normal, Mood is normal, Patient is cooperative and pleasant 14:26 Head/face: Noted is tenderness, that is mild, of the right occipital area. Vital Signs: 14:13 BP 126 / 75; Pulse 82; Resp 18; Temp 98.6; Pulse Ox 99% ; Weight 64.41 kg; Height 5 ft. cb5 8 in. (172.72 cm); Pain 2/10; 14:28 BP 144 / 62; Pulse 80; Resp 16; Pulse Ox 98% ; Pain 2/10; cb5 14:13 Body Mass Index 21.59 (64.41 kg, 172.72 cm) cb5 MDM: 14:17 Patient medically screened. [facility] 15:05 Data reviewed: vital signs, nurses notes. Counseling: I had a detailed discussion with [facility] the patient and/or guardian regarding: the historical points, exam findings, and any diagnostic results supporting the discharge/admit diagnosis, the need for outpatient follow up, to return to the emergency department if symptoms worsen or persist or if there are any questions or concerns that arise at home. 10/06 14:17 Order name: CT Head C Spine; Complete Time: 15:05 [facility] Administered Medications: 14:50 Drug: Tylenol 650 mg Route: PO; cb5 Disposition Summary: 10/06/21 15:05 Discharge Ordered Location: Home [facility] Condition: Stable [facility] Diagnosis - Unspecified superficial injury of other part of head, initial encounter [facility] Followup: [facility] - With: Private Physician - When: 2 - 3 days - Reason: Recheck today's complaints, Continuance of care, Re-evaluation by your physician Discharge Instructions: - Discharge Summary Sheet [facility] - Head Injury, Adult [facility] Forms: - Medication Reconciliation Form [facility] - Thank You Letter [facility] - Antibiotic Education [facility] - Prescription Opioid Use [facility] Addendum: 10/10/2021 18:20 Co-signature as Attending Physician, John Cline MD I agree with the assessment and c hernandez plan of care. Signatures: Dispatcher [employer] John Brown MD MD cha Mickail, Joel, PA PA Daphne Perez, RN RN cb5
--- NOTE | 2021-10-06 15:06 | ER ---
Nurse's Notes [facility] Name: Zain Hope Age: 70 yrs Sex: Male : 1950 Arrival Date: 10/06/2021 Time: 14:12 Bed 14 Private MD: Diagnosis: Unspecified superficial injury of other part of head, initial encounter Presentation: 10/06 14:13 Chief complaint: Patient states: fell, hit head, no L.O.C. Coronavirus screen: Client cb5 denies travel out of the [place] in the last 14 days. Client indicates they have traveled out of the [place] in the last 14 days. Ebola Screen: Patient negative for fever greater than or equal to 101.5 degrees Fahrenheit, and additional compatible Ebola Virus Disease symptoms Patient denies exposure to infectious person. Initial Sepsis Screen: Does the patient meet any 2 criteria? No. Patient's initial sepsis screen is negative. Does the patient have a suspected source of infection? No. Patient's initial sepsis screen is negative. Risk Assessment: Do you want to hurt yourself or someone else? Patient reports no desire to harm self or others. 14:13 Method Of Arrival: EMS: [facility] cb5 14:13 Acuity: BRYANT 4 cb5 Triage Assessment: 14:14 General: Appears in no apparent distress. comfortable, slender, well groomed, Behavior cb5 is calm, cooperative, appropriate for age. Pain: Complains of pain in scalp Pain currently is 2 out of 10 on a pain scale. Historical: - PMHx: 14:26 CAD; CVA; Depression; GERD; Hypertension; Diabetes - NIDDM; Hyperlipidemia; DYSPHAGIA; cb5 Hypothyroidism; - Immunization history:: Adult Immunizations up to date. - Social history:: Smoking status: . Screenin:24 Abuse screen: Denies threats or abuse. Denies injuries from another. Nutritional cb5 screening: No deficits noted. Tuberculosis screening: No symptoms or risk factors identified. 14:29 Fall Risk Fall in past 12 months (25 points). Secondary diagnosis (15 points) Gait- cb5 Normal/Bed Rest/Wheelchair (0 pts) Mental Status- Oriented to own ability (0 pts). Assessment: 14:15 General: Appears in no apparent distress. comfortable, slender, well groomed, Behavior cb5 is calm, cooperative, appropriate for age. Pain: Complains of pain in back of head Pain currently is 2 out of 10 on a pain scale. Neuro: Level of Consciousness is awake, alert, obeys commands, Oriented to person, place, time, situation, Appropriate for age. Cardiovascular: No deficits noted. Respiratory: No deficits noted. GI: No deficits noted. : No deficits noted. Musculoskeletal: Reports weakness in leftarm from previous stroke. 15:30 General: called report to Brandi Rowley [phone] , they are providing transportatin [facility] back to facility, will be within the next hour. . Vital Signs: 14:13 BP 126 / 75; Pulse 82; Resp 18; Temp 98.6; Pulse Ox 99% ; Weight 64.41 kg; Height 5 ft. cb5 8 in. (172.72 cm); Pain 2/10; 14:28 BP 144 / 62; Pulse 80; Resp 16; Pulse Ox 98% ; Pain 2/10; cb5 14:13 Body Mass Index 21.59 (64.41 kg, 172.72 cm) [facility] ED Course: 14:12 Patient arrived in ED. [facility] 14:13 Daphne Faith, RN is Primary Nurse. [facility] 14:13 Wang Hubbard PA is PHCP. [facility] 14:13 John Cline MD is Attending Physician. [facility] 14:14 Triage completed. [facility] 14:14 Arm band placed on. 5 14:23 No provider procedures requiring assistance completed. [facility] 14:26 Bed in low position. Call light in reach. Side rails up X 1. 5 14:38 CT Head C Spine In Process Unspecified. EDMS Administered Medications: 14:50 Drug: Tylenol 650 mg Route: PO; [facility] Outcome: 15:05 Discharge ordered by . kaity 16:27 Patient left the ED. ab2 Signatures: Dispatcher [employer] EDMS Wang Hubbard PA PA jmm Boman, Colleen, RN RN [facility] Alfonzo Rivera ab2
[2021-10-06 16:34] VITALS: TEMP 98.6
[2021-10-06 16:36] VITALS: BP 144/62; O2SAT 98
== END 2021-10-06 16:27 | disposition home or self-care (01) ==
LOC: ER 14:05
DX: S09.8XXA Other specified injuries of head, initial encounter (principal); M54.2 Cervicalgia; R51.9 Headache, unspecified; W19.XXXA Unspecified fall, initial encounter; E11.9 Type 2 diabetes mellitus without complications; I10 Essential (primary) hypertension; Z86.73 Personal history of transient ischemic attack (TIA), and cerebral infarction without residual deficits
CPT/HCPCS: 70450; 72125; 99283

== ENCOUNTER 2022-02-19 15:31 | Emergency (ER) | payer OTHER ==
--- OUTSIDE RECORDS SUMMARY | 2022-02-19 15:36 | XMS REPORT | Continuity of Care Document ---
:1950 Author Organization [facility] t Address [address] [place] [address] Care Team Providers Name Role Phone ORLY SMITH Attending Clinician Unavailable ORLY SMITH Admitting Clinician Unavailable Problems This patient has no known problems. Allergies, Adverse Reactions, Alerts Allergy Allergy Status Severity Reaction(s) Onset Inactive Treating Comm ents Source Name Type Date Date Clinician NO KNOWN Allergy Active [facility] Medications This patient has no known medications. Procedures This patient has no known procedures. Results Test Description Test Time Test Comments Results Result Comments Source BLOOD CULTURE 2018-11-23 02:01:00 Test Item Value Reference Range Interpretation Comme nts CULTURE (BEAKER) (test code = 1095) No growth in 5 days BLOOD [id number] 02:01:00 Test Item Value Reference Range Interpretation Comments CULTURE (BEAKER) (test No growth in 5 days code = 1095) POCT-GLUCOSE [id number] 17:22:00 Test Item Value Reference Range Interpretation Comments POC-GLUCOSE METER 212 mg/dL 70-110 H TESTED AT [facility] 6720 ([facility]) (test code = KWASI Rowe [facility] 1538) 28620 POCT-GLUCOSE [id number] 12:44:00 Test Item Value Reference Range Interpretation Comments POC-GLUCOSE METER 229 mg/dL 70-110 H TESTED AT [facility] 6720 ([facility]) (test code = KWASI Rowe [facility] 1538) 34521 POCT-GLUCOSE [id number] 06:22:00 Test Item Value Reference Range Interpretation Comments POC-GLUCOSE METER 211 mg/dL 70-110 H TESTED AT [facility] 6720 ([facility]) (test code = [facility] Soledad [facility] 1538) [address] BASIC METABOLIC [id number] 06:20:00 Test Item Value Reference Range Interpretation [...] 0-0 (BEAKER) (test code = 413) POCT-GLUCOSE [id number] 23:49:00 Test Item Value Reference Range Interpretation Comments POC-GLUCOSE METER 230 mg/dL 70-110 H TESTED AT [place] [address] (BEAKER) (test code = [facility] 1538) 98265 POCT-GLUCOSE [id number] 18:04:00 Test Item Value Reference Range Interpretation Comments POC-GLUCOSE METER 256 mg/dL 70-110 H TESTED AT [place] [address] (BEAKER) (test code = [facility] 1538) 98698 URINALYSIS WITH MICROSCOPIC IF [id number] 14:11:00 Test Item Value Reference Range Interpretation [...] 463) SOURCE(BEAKER) (test code = 2795) POCT-GLUCOSE [id number] 12:12:00 Test Item Value Reference Range Interpretation Comments POC-GLUCOSE METER 227 mg/dL 70-110 H TESTED AT [place] [address] (BEAKER) (test code = [facility] 1538) 43703 POCT-GLUCOSE [id number] 11:58:00 Test Item Value Reference Range Interpretation Comments POC-GLUCOSE METER 243 mg/dL 70-110 H TESTED AT [place] [address] (BEAKER) (test code = [facility] 1538) 10692 BASIC METABOLIC [id number] 05:42:00 Test Item Value Reference Range Interpretation [...] 0-0 (BEAKER) (test code = 413) POCT-GLUCOSE [id number] 17:25:00 Test Item Value Reference Range Interpretation Comments POC-GLUCOSE METER 267 mg/dL 70-110 H TESTED AT [place] [address] (BEAKER) (test code = KWASI ACKERMAN 1538) 09826 URINALYSIS W/ REFLEX URINE [id number] 14:12:00 Test Item Value Reference Range Interpretation [...] Rare SOURCE(BEAKER) (test code = 2795) POCT-GLUCOSE [id number] 11:51:00 Test Item Value Reference Range Interpretation Comments POC-GLUCOSE METER 258 mg/dL 70-110 H TESTED AT [place] [id number] (BEAKER) (test code = KWASI ACKERMAN 1538) 49116 POCT-GLUCOSE [id number] 09:43:00 Test Item Value Reference Range Interpretation Comments POC-GLUCOSE METER 235 mg/dL 70-110 H TESTED AT [facility] 6720 [facility] (test code = [place] 1538) [address] TROPONIN [id number] 05:55:00 Test Item Value Reference Range Interpretation [...] acute neurological disease, and persistent tachyarrhythmia.BASIC METABOLIC [id number] 05:53:00 Test Item Value Reference Range Interpretation [...] 0-0 (BEAKER) (test code = 413) POCT-GLUCOSE [id number] 01:42:00 Test Item Value Reference Range Interpretation Comments POC-GLUCOSE METER 239 mg/dL 70-110 H TESTED AT [facility] 6720 ([facility]) (test code = KWASI Rowe [place] 1538) [address] TROPONIN [id number] 00:15:00 Test Item Value Reference Range Interpretation [...] 463) SOURCE(BEAKER) (test code = 2795) URINALYSIS [id number] 00:06:00 Test Item Value Reference Range Interpretation Comments RBC UA (BEAKER) (test code = 519) 1 /HPF WBC UA (BEAKER) (test code = 520) 5 /HPF BACTERIA (BEAKER) (test code = 517) Rare MUCUS (BEAKER) (test code = 1574) Rare TROPONIN [id number] 18:49:00 Test Item Value Reference Range Interpretation [...] acidosis, acute neurological disease, and persistent tachyarrhythmia.POCT-GLUCOSE [id number] 16:26:00 Test Item Value Reference Range Interpretation Comments POC-GLUCOSE METER 316 mg/dL 70-110 H Notified Sol[place] Michaels MD/TESTED (EDWIN) (test code = AT [facility] 6720 [place] 7700) [facility] 7703 0 POCT-GLUCOSE [id number] 13:27:00 Test Item Value Reference Range Interpretation Comments POC-GLUCOSE METER 272 mg/dL 70-110 H TESTED AT [facility] 6720 (BEAKER) (test code = [place] 5929) [address] TROPONIN [id number] 11:19:00 Test Item Value Reference Range Interpretation [...] acute neurological disease, and persistent tachyarrhythmia.BASIC METABOLIC [id number] 07:39:00 Test Item Value Reference Range Interpretation [...] NOT APPLICABLE FOR DIALYSIS PATIEN TS. TROPONIN [id number] 06:49:00 Test Item Value Reference Range Interpretation [...] acidosis, acute neurological disease, and persistent tachyarrhythmia.POCT-GLUCOSE [id number] 05:50:00 Test Item Value Reference Range Interpretation Comments POC-GLUCOSE METER 244 mg/dL 70-110 H TESTED AT [place] [address] (BEAKER) (test code = KWASI Row[place] 1538) [address] CBC (HEMOGRAM ONLY)2018-11-17 04:38:00 Test Item Value [...] 0-0 (BEAKER) (test code = 413) POCT-GLUCOSE [id number] 23:38:00 Test Item Value Reference Range Interpretation Comments POC-GLUCOSE METER 232 mg/dL 70-110 H TESTED AT [place] [address] (BEAKER) (test code = KWASI Row[place] 1538) [address] TROPONIN [id number] 18:59:00 Test Item Value Reference Range Interpretation [...] acidosis, acute neurological disease, and persistent tachyarrhythmia.POCT-GLUCOSE [id number] 18:22:00 Test Item Value Reference Range Interpretation Comments POC-GLUCOSE METER 244 mg/dL 70-110 H TESTED AT [facility] 6720 (BEAKER) (test code = [place] 1538) [address] BASIC METABOLIC [id number] 06:29:00 Test Item Value Reference Range Interpretation [...] % 40.1-51.0 L 411) MEAN CORPUSCULAR VOLUME (AKER) 86.3 fL 79.0-92.2 (test code = 753) MEAN CORPUSCULAR HEMOGLOBIN 28.7 pg 25.7-32.2 (BEAKER) (test code = 751) MEAN CORPUSCULAR HEMOGLOBIN CONC 33.2 GM/DL 32.3-36.5 (AKER) (test code = 752) RED CELL DISTRIBUTION WIDTH 14.6 % 11.6-14.4 H (AKER) (test code = 412) PLATELET COUNT ([facility]) (test 379 K/CU MM 150-450 code = 756) MEAN PLATELET VOLUME ([facility]) 10.6 fL 9.4-12.4 (test code = 754) NUCLEATED RED BLOOD CELLS 0 /100 WBC 0-0 ([facility]) (test code = 413) POCT-GLUCOSE [id number] 05:53:00 Test Item Value Reference Range Interpretation Comments POC-GLUCOSE METER 208 mg/dL 70-110 H TESTED AT [place] [address] ([facility]) (test code = KL[place] Row[place] 1538) [address] POCT-GLUCOSE [id number] 23:49:00 Test Item Value Reference Range Interpretation Comments POC-GLUCOSE METER 221 mg/dL 70-110 H TESTED AT [place] [address] ([facility]) (test code = [place] Row[place] 1538) [address] POCT-GLUCOSE [id number] 17:37:00 Test Item Value Reference Range Interpretation Comments POC-GLUCOSE METER 237 mg/dL 70-110 H TESTED AT [place] [address] ([facility]) (test code = [place] 1538) [address]33[address] POCT-GLUCOSE [id number] 12:33:00 Test Item Value Reference Range Interpretation Comments POC-GLUCOSE METER 223 mg/dL 70-110 H TESTED AT [place] [address] ([facility]) (test code = [place] 1538) [address] POCT-GLUCOSE [id number] 06:38:00 Test Item Value Reference Range Interpretation Comments POC-GLUCOSE METER 247 mg/dL 70-110 H TESTED AT [facility] 6720 (BEAKER) (test code = [place] 1538) [address] BASIC METABOLIC [id number] 06:01:00 Test Item Value Reference Range Interpretation [...] 0-0 (BEAKER) (test code = 413) POCT-GLUCOSE [id number] 02:35:00 Test Item Value Reference Range Interpretation Comments POC-GLUCOSE METER 220 mg/dL 70-110 H TESTED AT [place] [address] ([facility] (test code = [facility] 1538) 54601 POCT-GLUCOSE [id number] 16:55:00 Test Item Value Reference Range Interpretation Comments POC-GLUCOSE METER 239 mg/dL 70-110 H TESTED AT [place] [address] ([facility]) (test code = [facility] 1538) 50093 POCT-GLUCOSE [id number] 12:09:00 Test Item Value Reference Range Interpretation Comments POC-GLUCOSE METER 246 mg/dL 70-110 H TESTED AT [place] [address] ([facility]) (test code = [facility] 1538) 04470 BASIC METABOLIC [id number] 05:52:00 Test Item Value Reference Range Interpretation [...] NOT APPLICABLE FOR DIALYSIS PATIEN TS. POCT-GLUCOSE [id number] 05:37:00 Test Item Value Reference Range Interpretation Comments POC-GLUCOSE METER 181 mg/dL 70-110 H TESTED AT [place] [address] ([facility]) (test code = KWASI Rowe [place] 1538) [address] CBC (HEMOGRAM ONLY)2018-11-14 05:37:00 Test Item Value [...] 0-0 (BEAKER) (test code = 413) POCT-GLUCOSE [id number] 00:10:00 Test Item Value Reference Range Interpretation Comments POC-GLUCOSE METER 225 mg/dL 70-110 H TESTED AT [place] [address] ([facility] (test code = KWASI Row[place] 1538) [address] POCT-GLUCOSE [id number] 17:58:00 Test Item Value Reference Range Interpretation Comments POC-GLUCOSE METER 221 mg/dL 70-110 H TESTED AT [place] [address] ([facility] (test code = KWASI Rowe [place] 1538) [address] CT, SPINE, CERVICAL, WO [id number] 15:33:00FINAL REPORT EXAM: CERVICAL SPINE CT WITHOUT [...] MDReport Verified Date/Time: 11/13/2018 15:33:48 Reading Location: [facility] Radiology Reading Room CT, BRAIN, WITHOUT [id number] 15:22:00FINAL REPORT CT head without contrast. Reason [...] MDReport Verified Date/Time: 11/13/2018 15:22:34 Reading Location: [address] Consult Reading Room POCT-GLUCOSE [id number] 12:10:00 Test Item Value Reference Range Interpretation Comments POC-GLUCOSE METER 218 mg/dL 70-110 H TESTED AT [facility] 6720 (BEAKER) (test code = [place] 1538) [address] BASIC METABOLIC [id number] 08:05:00 Test Item Value Reference Range Interpretation [...] PATIEN TS. CBC W/PLT COUNT & AUTO [id number] 08:02:00 Test Item Value Reference Range Interpretation [...] PERCENT (BEAKER) (test code = 2805) POCT-GLUCOSE [id number] 05:35:00 Test Item Value Reference Range Interpretation Comments POC-GLUCOSE METER 190 mg/dL 70-110 H TESTED AT [facility] 6720 (BEAKER) (test code = KWASI ACKERMAN 1538) 78425 POCT-GLUCOSE [id number] 00:25:00 Test Item Value Reference Range Interpretation Comments POC-GLUCOSE METER 193 mg/dL 70-110 H TESTED AT [facility] 6720 (MAAME) (test code = [place] 1538) 14872 POCT-GLUCOSE [id number] 18:09:00 Test Item Value Reference Range Interpretation Comments POC-GLUCOSE METER 204 mg/dL 70-110 H TESTED AT [facility] 6720 ([facility]) (test code = [place] 1538) [address] CORDELIA, CAROTID STENT W [id number] 14:42:00Reason for exam:->R carotid stent for carotid stenosisFINAL REPORT DATE OF PROCEDURE: 11/07/2018 SURGEON: Garrett Echevarria M.D. COSMETIC CHEMIST: Lon Lopez MD PREOPERATIVE DIAGNOSIS: Right hemispheric stroke with severe right carotid artery stenosis POST OPERATIVE DIAGNOSIS: Right hemispheric stroke with severe right carotid artery stenosis OPERATION: 1) Cerebral Angiogram2) right carotid stent IMPLANTS: Precise Pro Stent 3b46Acoz stent 8-6 x 40 ANESTHESIA: Moderate sedation [...] Serial dilation was performedand then a 9 Latvian short sheath was placed in the right common femoral artery and placed on heparinized flush. Angiography was performed via the sheath confirmed satisfactory placement. A 5 Latvian diagnostic glide catheter was then used to [...] MDReport Verified Date/Time: 11/12/2018 14:42:01 Reading Location: [facility] Y026 Neuro Angio Reading Room [place], ANGIOGRAM, [id number] 14:41:00Reason for exam:->right ICA stenosisFINAL REPORT DATE OF PROCEDURE: November 05, 2018 SURGEON: Garrett Echevarria M.D. COSMETIC CHEMIST: Lon Lopez MD PREOPERATIVE DIAGNOSIS: Right carotid [...] and hemostasis was achieved with a 6- Latvian AngioSeal closuredevice. The patient tolerated the procedure [...] MDReport Verified Date/Time: 11/12/2018 14:41:58 Reading Location: [facility] L1G273 Neuro Angio Reading Room POCT- GLUCOSE [id number] 12:37:00 Test Item Value Reference Range Interpretation Comments POC-GLUCOSE METER 157 mg/dL 70-110 H TESTED AT [place] [address] (BEAKER) (test code = [facility] 1538) 79447 POCT-GLUCOSE [id number] 06:41:00 Test Item Value Reference Range Interpretation Comments POC-GLUCOSE METER 176 mg/dL 70-110 H TESTED AT [place] [address] (BEAKER) (test code = [facility] 1538) 20011 BASIC METABOLIC [id number] 06:30:00 Test Item Value Reference Range Interpretation [...] 0-0 (BEAKER) (test code = 413) POCT-GLUCOSE [id number] 00:14:00 Test Item Value Reference Range Interpretation Comments POC-GLUCOSE METER 199 mg/dL 70-110 H TESTED AT [place] [address] ([facility]) (test code = KWASI Rowe [facility] 1538) 00968 POCT-GLUCOSE [id number] 17:13:00 Test Item Value Reference Range Interpretation Comments POC-GLUCOSE METER 221 mg/dL 70-110 H TESTED AT [place] [address] ([facility]) (test code = [place] 1538) [address] POCT-GLUCOSE [id number] 12:47:00 Test Item Value Reference Range Interpretation Comments POC-GLUCOSE METER 184 mg/dL 70-110 H TESTED AT [place] [address] ([facility]) (test code = [place] 1538) [address] BASIC METABOLIC [id number] 06:22:00 Test Item Value Reference Range Interpretation [...] NOT APPLICABLE FOR DIALYSIS PATIEN TS. POCT-GLUCOSE [id number] 06:07:00 Test Item Value Reference Range Interpretation Comments POC-GLUCOSE METER 183 mg/dL 70-110 H TESTED AT [facility] 6720 ([facility]) (test code = [facility] 1538) 31139 CBC (HEMOGRAM ONLY)2018-11-11 05:13:00 Test Item Value [...] 0-0 (BEAKER) (test code = 413) POCT-GLUCOSE [id number] 00:14:00 Test Item Value Reference Range Interpretation Comments POC-GLUCOSE METER 176 mg/dL 70-110 H TESTED AT [place] [address] ([facility]) (test code = [facility] 1538) 77460 POCT-GLUCOSE [id number] 17:43:00 Test Item Value Reference Range Interpretation Comments POC-GLUCOSE METER 195 mg/dL 70-110 H TESTED AT [place] [address] ([facility]) (test code = [facility] 1538) 59809 POCT-GLUCOSE [id number] 12:08:00 Test Item Value Reference Range Interpretation Comments POC-GLUCOSE METER 170 mg/dL 70-110 H TESTED AT [place] [address] ([facility]) (test code = [facility] 1538) 82519 BASIC METABOLIC [id number] 07:13:00 Test Item Value Reference Range Interpretation [...] NOT APPLICABLE FOR DIALYSIS PATIEN TS. POCT-GLUCOSE [id number] 06:08:00 Test Item Value Reference Range Interpretation Comments POC-GLUCOSE METER 178 mg/dL 70-110 H TESTED AT [place] [address] ([facility] (test code = KWASI Rowe [place] 1538) 40392 CBC (HEMOGRAM ONLY)2018 05:55:00 Test Item Value [...] 0-0 (BEAKER) (test code = 413) POCT-GLUCOSE [id number] 01:11:00 Test Item Value Reference Range Interpretation Comments POC-GLUCOSE METER 160 mg/dL 70-110 H TESTED AT [place] [address] (BEAKER) (test code = KWASI Row[place] 1538) [address] POCT-GLUCOSE [id number] 12:18:00 Test Item Value Reference Range Interpretation Comments POC-GLUCOSE METER 147 mg/dL 70-110 H TESTED AT [facility] 6720 (BEAKER) (test code = KWASI Rowe [place] 1538) [address] POCT-GLUCOSE [id number] 08:20:00 Test Item Value Reference Range Interpretation Comments POC-GLUCOSE METER 155 mg/dL 70-110 H TESTED AT [facility] 6720 (BEAKER) (test code = KWASI Row[place] 1538) [address] BASIC METABOLIC [id number] 06:07:00 Test Item Value Reference Range Interpretation [...] MEAN CORPUSCULAR HEMOGLOBIN CONC 34.0 GM/DL 32.3-36.5 ([facility]) (test code = 752) RED CELL DISTRIBUTION WIDTH 14.3 % 11.6-14.4 (AKER) (test code = 412) PLATELET COUNT ([facility]) (test 252 K/CU MM 150-450 code = 756) MEAN PLATELET VOLUME (AKER) 10.0 fL 9.4-12.4 (test code = 754) NUCLEATED RED BLOOD CELLS 0 /100 WBC 0-0 ([facility]) (test code = 413) POCT-GLUCOSE [id number] 23:57:00 Test Item Value Reference Range Interpretation Comments POC-GLUCOSE METER 140 mg/dL 70-110 H TESTED AT [place] [address] ([facility]) (test code = [facility] 1538) 26319 POCT-GLUCOSE [id number] 17:30:00 Test Item Value Reference Range Interpretation Comments POC-GLUCOSE METER 127 mg/dL 70-110 H TESTED AT [place] [address] ([facility]) (test code = [facility] 1538) 40622 POCT-GLUCOSE [id number] 11:54:00 Test Item Value Reference Range Interpretation Comments POC-GLUCOSE METER 133 mg/dL 70-110 H TESTED AT [place] [address] ([facility]) (test code = [facility] 1538) 40031 POCT-GLUCOSE [id number] 06:37:00 Test Item Value Reference Range Interpretation Comments POC-GLUCOSE METER 110 mg/dL 70-110 TESTED AT [place] [address] ([facility]) (test code = [facility] 1538) 34935 BASIC METABOLIC [id number] 06:28:00 Test Item Value Reference Range Interpretation Comments SODIUM (BEAKER) 136 meq/L 136-145 (test code = 381) POTASSIUM (BEAKER) 4.4 meq/L 3.5-5.1 (test code = 379) CHLORIDE (BEAKER) 110 meq/L 98-107 H (test code = 382) CO2 (AKER) (test 20 meq/L 22-29 L code = 355) BLOOD UREA NITROGEN 15 mg/dL 7-21 ([facility]) (test code = 354) CREATININE (BEAKER) 0.74 [...] 0-0 (BEAKER) (test code = 413) POCT-GLUCOSE [id number] 01:21:00 Test Item Value Reference Range Interpretation Comments POC-GLUCOSE METER 131 mg/dL 70-110 H TESTED AT [facility] 6720 (BEAKER) (test code = KWASI A[place] 1538) 8[address]58 POCT-GLUCOSE [id number] 18:16:00 Test Item Value Reference Range Interpretation Comments POC-GLUCOSE METER 159 mg/dL 70-110 H TESTED AT [place] [address] ([facility]) (test code = [place] 1538) [address] [id number] 15:58:00 Test Item Value Reference Range Interpretation Comments ACTIVATED CLOTTING TIME 252 sec TEST ED AT [place] [address] ([facility]) (test code = [place] 441) [address] POCT-GLUCOSE [id number] 13:49:00 Test Item Value Reference Range Interpretation Comments POC-GLUCOSE METER 155 mg/dL 70-110 H TESTED AT [place] [address] ([facility]) (test code = KWASI Row[place] 1538) [address] POCT-P2Y12 PLATELET [id number] 12:44:00 Test Item Value Reference Range Interpretation Comments POC-P2Y12 PLATELET AGG ([facility]) (test 83 PRU code = 2303) RANGE INFORMATION: PRU reference range is 194-418. Post Drug Results: Lower PRU levels are associated with expected antiplatelet effect. Values may be below the stated reference range above. The post-drug PRU values reported in the [employer] P2Y12 package insert are [id number].CT, BRAIN, WITHOUT [id number] 09:26:[address], BRAIN, WITHOUT CONTRAST [...] MDReport Verified Date/Time: 11/07/2018 09:26:55 Reading Location: [address] Neuro Reading Room POCT-GLUCOSE [id number] 06:41:00 Test Item Value Reference Range Interpretation Comments POC-GLUCOSE METER 186 mg/dL 70-110 H TESTED AT [facility] 6720 ([facility]) (test code = [place] 1538) [address] POCT-P2Y12 PLATELET [id number] 06:16:00 Test Item Value Reference Range Interpretation Comments POC-P2Y12 PLATELET AGG (BEAKER) (test 247 PRU code = 2303) RANGE INFORMATION: PRU reference range is 194-418. Post Drug Results: Lower PRU levels are associated with expected antiplatelet effect. Values may be below the stated reference range above. The post-drug PRU values reported in the [employer] P2Y12 package insert are [id number].BASIC METABOLIC [id number] 06:01:00 Test Item Value Reference Range Interpretation [...] 0-0 (BEAKER) (test code = 413) POCT-GLUCOSE [id number] 23:34:00 Test Item Value Reference Range Interpretation Comments POC-GLUCOSE METER 173 mg/dL 70-110 H TESTED AT [facility] 6720 (BEAKER) (test code = KWASI Rowe [facility] 1538) [address] RAD, ABDOMEN/KUB, 1 VIEW [id number] 19:42:00Reason for exam:->verify corpak placementShould this be [...] of dysmotility with constipation. Signed: Shruthi Neumann MDReport Verified Date/Time: 11/06/2018 19:42:40 Reading Location: [address] Reading Room POCT-GLUCOSE [id number] 18:59:00 Test Item Value Reference Range Interpretation Comments POC-GLUCOSE METER 143 mg/dL 70-110 H TESTED AT [place] [address] ([facility]) (test code = [facility] 1538) 09874 POCT-GLUCOSE [id number] 14:46:00 Test Item Value Reference Range Interpretation Comments POC-GLUCOSE METER 169 mg/dL 70-110 H TESTED AT [place] [address] ([facility]) (test code = [facility] 1538) [address] FL, ESOPH, SWALLOW FUNCTION, WITH CINE OR [id number] 14:10:00Reason for exam:->dysphagiaFINAL REPORT Modified barium swallow [...] Ve rified Date/Time: 11/06/2018 14:10:54 Reading Location: [facility] [id number] [facility] Reading Room BASI METABOLIC [id number] 06:28:00 Test Item Value Reference Range Interpretation [...] NOT APPLICABLE FOR DIALYSIS PATIEN TS. POCT-GLUCOSE [id number] 06:19:00 Test Item Value Reference Range Interpretation Comments POC-GLUCOSE METER 216 mg/dL 70-110 H TESTED AT [facility] 67[facility] ([facility]) (test code = [place] 1538) [address] CBC (HEMOGRAM ONLY)2018-11-06 05:54:00 Test Item Value [...] 0-0 (BEAKER) (test code = 413) POCT-GLUCOSE [id number] 01:34:00 Test Item Value Reference Range Interpretation Comments POC-GLUCOSE METER 175 mg/dL 70-110 H TESTED AT [place] [address] [facility] (test code = [facility] 1538) [address] POCT-GLUCOSE [id number] 19:12:00 Test Item Value Reference Range Interpretation Comments POC-GLUCOSE METER 150 mg/dL 70-110 H TESTED AT [place] [address] ([facility]) [facility] = [facility] [facility] 1538) [id number] POCT-GLUCOSE [id number] 11:28:00 Test Item Value Reference Range Interpretation Comments POC-GLUCOSE METER 169 mg/dL 70-110 H TESTED AT [place] [address] ([facility]) (test code = [facility] 1538) [id number] BASIC METABOLIC [id number] 07:23:00 Test Item Value Reference Range Interpretation [...] NOT APPLICABLE FOR DIALYSIS PATIEN TS. POCT-GLUCOSE [id number] 06:37:00 Test Item Value Reference Range Interpretation Comments POC-GLUCOSE METER 158 mg/dL 70-110 H TESTED AT [place] [address] ([facility]) (test code = [facility] 1538) [id number] 05:42:00 Test Item Value Reference Range Interpretation [...] 0-0 (BEAKER) (test code = 413) POCT-GLUCOSE [id number] 23:19:00 Test Item Value Reference Range Interpretation Comments POC-GLUCOSE METER 231 mg/dL 70-110 H TESTED AT [facility] 6720 (BEAKER) (test code = [facility] [place] 1538) [id number] POCT-GLUCOSE [id number] 18:05:00 Test Item Value Reference Range Interpretation Comments POC-GLUCOSE METER 245 mg/dL 70-110 H TESTED AT [facility] 6720 (BEAKER) (test code = KWASI Rowe [facility] 1538) [id number] POCT-GLUCOSE [id number] 12:49:00 Test Item Value Reference Range Interpretation Comments POC-GLUCOSE METER 197 mg/dL 70-110 H TESTED AT [facility] 6720 (BEAKER) (test code = KLARISSAVT Soled[place] [facility] 1538) [address]278 BASIC METABOLIC [id number] 09:31:00 Test Item Value Reference Range Interpretation [...] (BEAKER) (test code = 412) PLATELET COUNT ([facility]) (test 180 K/CU MM 150-450 code = 756) MEAN PLATELET VOLUME (BEAKER) 11.7 fL 9.4-12.4 (test code = 754) NUCLEATED RED BLOOD CELLS 0 /100 WBC 0-0 (AKER) (test code = 413) POCT-GLUCOSE [id number] 23:44:00 Test Item Value Reference Range Interpretation Comments POC-GLUCOSE METER 187 mg/dL 70-110 H TESTED AT [place] [address] ([facility]) (test code = [facility] [place] 1538) [id number] POCT-GLUCOSE [id number] 17:30:00 Test Item Value Reference Range Interpretation Comments POC-GLUCOSE METER 231 mg/dL 70-110 H TESTED AT [place] [address] ([facility]) (test code = [facility] [place] 1538) [id number] POCT-GLUCOSE [id number] 12:40:00 Test Item Value Reference Range Interpretation Comments POC-GLUCOSE METER 205 mg/dL 70-110 H TESTED AT [place] [address] ([facility]) (test code = [facility] [place] 1538) [address] BASIC METABOLIC [id number] 08:48:00 Test Item Value Reference Range Interpretation [...] NOT APPLICABLE FOR DIALYSIS PATIEN TS. POCT-GLUCOSE [id number] 06:30:00 Test Item Value Reference Range Interpretation Comments POC-GLUCOSE METER 153 mg/dL 70-110 H TESTED AT [place] [address] ([facility]) (test code = [facility] 1538) [id number] CBC (HEMOGRAM ONLY)2018-11-03 05:19:00 Test Item Value [...] 0-0 (BEAKER) (test code = 413) POCT-GLUCOSE [id number] 23:20:00 Test Item Value Reference Range Interpretation Comments POC-GLUCOSE METER 133 mg/dL 70-110 H TESTED AT [place] [address] [facility] (test code = KWASI Rowe [facility] 1538) [address]21 POCT-GLUCOSE [id number] 17:27:00 Test Item Value Reference Range Interpretation Comments POC-GLUCOSE METER 107 mg/dL 70-110 TESTED AT [place] [id number] (BEAKER) (test code = [facility]ASI Rowe [facility] 1538) [address] POCT-GLUCOSE [id number] 09:07:00 Test Item Value Reference Range Interpretation Comments POC-GLUCOSE METER 101 mg/dL 70-110 TESTED AT [place] [address] ([facility]) (test code = [facility]AS[facility] Rowe [facility] 1538) 15029 TROPONIN [id number] 07:02:00 Test Item Value Reference Range Interpretation Comments TROPONIN I (AKER) (test code = 0.04 ng/mL 0.00-0.03 H [...] acute neurological disease, and persistent tachyarrhythmia.BASIC METABOLIC [id number] 06:55:00 Test Item Value Reference Range Interpretation [...] 0-100 H (test code = 700) PROTHROMBIN [id number] 06:35:00 Test Item Value Reference Range Interpretation [...] 0-0 (BEAKER) (test code = 413) POCT-GLUCOSE [id number] 05:55:00 Test Item Value Reference Range Interpretation Comments POC-GLUCOSE METER 114 mg/dL 70-110 H TESTED AT [place] [address] ([facility]) (test code = [place] 1538) 17330 POCT-GLUCOSE [id number] 23:27:00 Test Item Value Reference Range Interpretation Comments POC-GLUCOSE METER 133 mg/dL 70-110 H TESTED AT [place] [address] ([facility]) (test code = [facility]WASI Rowe [facility] 1538) 13096 RAD, ABDOMEN/KUB, 1 VIEW [id number] 18:35:00Reason for exam:->To check NG TUbe positionFINAL REPORT INDICATION:Confirm feeding tube placement. TECHNIQUE: Abdomen radiograph one view. FINDINGS / IMPRESSION:There is a feeding tube that follows the course of the stomach with the tip projecting over the gastric antrum. Visualized bowel gas pattern is unremarkable. Osseous structures unremarkable. Signed: Bora Hawk MDRort Verified Date/Time: 11/01/2018 18:35:02 Reading Location: [facility] C013W Consult Reading Room -GLUCOSE [id number] 17:52:00 Test Item Value Reference Range Interpretation Comments POC-GLUCOSE METER 134 mg/dL 70-110 H TESTED AT [place] [address] ([facility]) (test code = KWASI Rowe [facility] 1538) [id number] POCT-GLUCOSE [id number] 15:42:00 Test Item Value Reference Range Interpretation Comments POC-GLUCOSE METER 135 mg/dL 70-110 H TESTED AT [place] [address] ([facility]) (test code = [facility]WASI Rowe [facility] 1538) 28383 [id number] 06:25:00 Test Item Value Reference Range Interpretation Comments MAGNESIUM (BEAKER) (test code = 2.3 mg/dL 1.6-2.6 627) COMPREHENSIVE METABOLIC [id number] 06:25:00 Test Item Value Reference Range Interpretation Comments TOTAL PROTEIN 5.9 gm/dL 6.0-8.3 L ([facility]) (test code = 770) ALBUMIN (BEAKER) 3.3 [...] PATIEN TS. CBC W/PLT COUNT & AUTO [id number] 06:11:00 Test Item Value Reference Range Interpretation [...] (test code = 2801) CT, BRAIN, WITHOUT [id number] 05:58:00FINAL REPORT EXAM: CT head without contrast. [...] hematoma cannot be excluded Signed: Brenda Pandya [facility] Verified Date/Time: 11/01/2018 05:58:05 Reading Location: [address] Body Reading Room Electronically signed by: Eugenia GLEZ 11/01/2018 05:58 AMPOCT-GLUCOSE [id number] 23:14:00 Test Item Value Reference Range Interpretation Comments POC-GLUCOSE METER 165 mg/dL 70-110 H TESTED AT [place] [address] ([facility]) (test code = KWASI Rowe [address] [address] [address], CTANGIO [id number] 18:44:00FINAL REPORT CT, CTANGIO BRAIN, CT, CAROTID, [...] carotid artery is widely patent extracranially. Nonvascular findings:Mgsn-hg-xgeprtnl degenerative changes are present in the cervical [...] MDReport Verified Date/Time: 10/31/2018 18:44:42 Reading Location: [address] Neuro Reading Room CT, CAROTID, [id number] 18:44:00FINAL REPORT CT, CTANGIO BRAIN, CT, CAROTID, [...] carotid artery is widely patent extracranially. Nonvascular findings:Deba-ek-nkncncpa degenerative changes are present in the cervical [...] Navarro Verified Date/Time: 10/31/2018 18:44:42 Reading Location: [address] Neuro Reading Room [id number] 14:17:00 Test Item Value Reference Range Interpretation Comments RPR SCREEN (BEAKER) (test code = Nonreactive Nonreactive 420) CBC W/PLT COUNT & AUTO [id number] 12:54:00 Test Item Value Reference Range Interpretation [...] 3438) Received comment: User comments: Slide comments:HEMOGLOBIN [id number] 11:05:00 Test Item Value Reference Range Interpretation Comments HEMOGLOBIN A1C (BEAKER) (test code = 8.4 % 4.3-6.1 H 368) VITAMIN [id number] 07:43:00 Test Item Value Reference Range Interpretation Comments VITAMIN B12 (BEAKER) (test code = 595 pg/mL 213-816 774) TROPONIN [id number] 07:21:00 Test Item Value Reference Range Interpretation [...] acidosis, acute neurological disease, and persistent tachyarrhythmia.C-REACTIVE [id number] 07:16:00 Test Item Value Reference Range Interpretation Comments C-REACTIVE PROTEIN (BEAKER) (test 4.19 mg/dL 0.00-0.50 H code = 676) TSH/FREE T4 IF [id number] 06:15:00 Test Item Value Reference Range Interpretation Comments THYROID STIMULATING HORMONE 2.46 uIU/mL 0.35-4.94 (BEAKER) (test code = 772) [id number] 05:54:00 Test Item Value Reference Range Interpretation [...] 2.5-3.5 for patients with mechanical heart valves.LIPID [id number] 05:51:00 Test Item Value Reference Range Interpretation [...] 130-159 High 160-189 Very High >=190COMPREHENSIVE METABOLIC [id number] 05:51:00 Test Item Value Reference Range Interpretation [...]
[2022-02-19] MEDS ORDERED: NA CHLORIDE 0.9% 1,000 ML ONE (15:55)
[2022-02-19 16:05] LABS: Absolute Lymphocytes (CBC) 1.6 K/uL (0.7-4.9); Hematocrit 29.4 % (39.6-49.0); Lymphocytes % 23.2 % (15.3-44.8); MCV 85.3 fL (80-100); MPV 8.2 fL (7.6-11.3); RBC Red Blood Cell Count 3.45 M/uL (4.33-5.43)
[2022-02-19 16:21] LABS: Albumin 2.9 g/dL (3.4-5.0); Bilirubin Total 0.3 mg/dL (0.2-1.0); Magnesium 1.9 mg/dL (1.8-2.4); Potassium 4.8 mmol/L (3.5-5.1)
[2022-02-19 18:41] LABS: Urine Blood Negative (Negative); Urine Glucose Trace (Negative); Urine Protein 1+ (Negative)
--- NOTE | 2022-02-19 18:57 | ER ---
Nurse's Notes [facility] Name: Zain Hope Age: 71 yrs Sex: Male : 1950 Arrival Date: 02/19/2022 Time: 15:32 Bed 17 Private MD: Diagnosis: Exposure to excessive natural heat, initial encounter;Dehydration Presentation: 02/19 15:33 Chief complaint: EMS states: Patient was at his daughters house working on a van in the [facility] heat all day when he started c/o dizziness, nausea, weakness, patient was so weak EMS had to carry him to the cart. Patient reports to drinking very little water-family tried to encourage patient to go inside but he would not listen. Ebola Screen: Patient negative for fever greater than or equal to 101.5 degrees Fahrenheit, and additional compatible Ebola Virus Disease symptoms Patient denies exposure to infectious person. Patient denies travel to an Ebola-affected area in the 21 days before illness onset. 15:33 Method Of Arrival: EMS: [facility] 9 15:33 Note provider at bedside at this time. tw2 15:34 Initial Sepsis Screen: Does the patient meet any 2 criteria? No. Patient's initial 9 sepsis screen is negative. Does the patient have a suspected source of infection? No. Patient's initial sepsis screen is negative. Risk Assessment: Do you want to hurt yourself or someone else? Patient reports no desire to harm self or others. Onset of symptoms is unknown. 15:34 Acuity: BRYANT 3 jg9 15:36 Coronavirus screen: Vaccine status: unknown. jg9 Triage Assessment: 15:30 General: Appears in no apparent distress. Behavior is calm, cooperative. Pain: Denies jg9 pain. Derm: Skin is intact, Skin is dry, Skin is pink, warm \T\ dry. Skin temperature is warm. Historical: - Allergies: 15:35 No Known Allergies; jg9 - PMHx: 15:35 CAD; CVA; Depression; Diabetes - NIDDM; DYSPHAGIA; GERD; Hyperlipidemia; Hypertension; jg9 Hypothyroidism; - Immunization history:: Adult Immunizations unknown. - Social history:: Smoking status: Patient denies any tobacco usage or history of. Screenin:35 Abuse screen: Denies threats or abuse. Nutritional screening: No deficits noted. tw2 Tuberculosis screening: No symptoms or risk factors identified. Fall Risk Secondary diagnosis (15 points) impaired mobility, CVA. Assessment: 17:02 Reassessment: Patient appears in no apparent distress at this time. No changes from tw2 previously documented assessment. Patient and/or family updated on plan of care and expected duration. Pain level reassessed. Patient is alert, oriented x 3, equal unlabored respirations, skin warm/dry/pink. 18:00 Reassessment: Patient appears in no apparent distress at this time. No changes from tw2 previously documented assessment. Patient and/or family updated on plan of care and expected duration. Pain level reassessed. Patient is alert, oriented x 3, equal unlabored respirations, skin warm/dry/pink. 18:55 Reassessment: Patient appears in no apparent distress at this time. No changes from tw2 previously documented assessment. Patient and/or family updated on plan of care and expected duration. Pain level reassessed. Patient is alert, oriented x 3, equal unlabored respirations, skin warm/dry/pink. Vital Signs: 15:34 BP 82 / 55; Pulse 63; Resp 18 S; Temp 99.1(TE); Pulse Ox 97% on R/A; Weight 79.38 kg jg9 (R); Height 5 ft. 6 in. (167.64 cm) (R); Pain 0/10; 15:35 BP 98 / 59; Pulse 72; Resp 17; Pulse Ox 97% on R/A; tw2 17:02 BP 110 / 59; Pulse 71; Resp 17; Pulse Ox 99% on R/A; tw2 18:00 BP 144 / 71; Pulse 70; Resp 17; Pulse Ox 99% on R/A; tw2 18:55 BP 138 / 65; Pulse 65; Resp 17; Pulse Ox 99% on R/A; tw2 15:34 Body Mass Index 28.25 (79.38 kg, 167.64 cm) jg9 ED Course: 15:32 Patient arrived in ED. eb 15:32 Sara Ross is Attending Physician. sd2 15:32 Bed in low position. Call light in reach. Side rails up X2. 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 Pulse tw2 ox on. NIBP on. 15:33 Arianna Jang, JACLYN is Primary Nurse. tw2 15:34 Arm band placed on. tw2 15:35 Triage completed. jg9 15:36 Maintain EMS IV. Dressing intact. Good blood return noted. Site clean \T\ dry. Gauge \T\ tw 2 site: 18 g RIGHT AC. 15:57 Procalcitonin Sent. tw2 15:57 Troponin High Sensitivity Sent. tw2 15:57 CMP Sent. tw2 15:57 Magnesium Sent. tw2 15:57 CBC with Diff Sent. tw2 16:07 EKG done, by ED staff, reviewed by Sara Ross. em1 19:23 No provider procedures requiring assistance completed. IV discontinued, intact, lg3 bleeding controlled, No redness/swelling at site. Pressure dressing applied. Administered Medications: 15:57 Drug: NS 0.9% 1000 ml Route: IV; Rate: 125 ml/hr; Site: right antecubital; tw2 19:39 Follow up: Response: No adverse reaction; IV Status: Completed infusion lg3 Medication: 15:36 VIS not applicable for this client. tw2 Outcome: 18:56 Discharge ordered by . sd2 19:24 Discharged to home ambulatory, with family. lg3 19:24 Condition: stable 19:24 Discharge instructions given to patient, family, Instructed on discharge instructions, Demonstrated understanding of instructions. 19:56 Patient left the ED. 5 Signatures: Juan Carlos Valladares em1 Arianna Jang, RN RN tw2 Salina Valladares 5 Aliyah Green Lacie RN RN lg3 Stephy Hsieh RN RN jg9 Sara Ross
--- NOTE | 2022-02-19 18:57 | EDPHYS ---
Physician Documentation [facility] Name: Zain Hope Age: 71 yrs Sex: Male : 1950 Arrival Date: 02/19/2022 Time: 15:32 Bed 17 Private MD: ED Physician Sara Ross HPI: 02/19 15:38 This 71 yrs old Male presents to ER via EMS with complaints of Heat Exposure. sd2 15:38 71 yo M with a hx of CAD s/p CABG, HTN, hypothyroidism presents via EMS with CC of heat sd2 exposure and hypotension. EMS reports patient was outside of his halfway home for approximately an hour and then came back inside due to feeling lightheaded with generalized weakness. BP 80/50s upon EMS arrival. 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 Denies any associated recent illness, fever, CP, SOB, n/v/d. Denies any urinary symptoms.. Historical: - Allergies: 15:35 No Known Allergies; jg9 - PMHx: 15:35 CAD; CVA; Depression; Diabetes - NIDDM; DYSPHAGIA; GERD; Hyperlipidemia; Hypertension; jg9 Hypothyroidism; - Immunization history:: Adult Immunizations unknown. - Social history:: Smoking status: Patient denies any tobacco usage or history of. ROS: 15:38 Constitutional: Negative for fever, chills, and weight loss, Eyes: Negative for injury, sd2 pain, redness, and discharge, Cardiovascular: Negative for chest pain, palpitations, and edema. Positive for lightheadedness. Respiratory: Negative for shortness of breath, cough, wheezing. Abdomen/GI: Negative for abdominal pain, nausea, vomiting, diarrhea. MS/Extremity: Negative for injury and deformity, Skin: Negative for injury, rash, and discoloration, Neuro: Negative for headache, numbness and tingling. Positive for dizziness. Hematologic/Lymphatic: Negative for swollen nodes, abnormal bleeding, and unusual bruising. Exam: 15:38 Constitutional: This is a well developed, well nourished patient who is awake, alert, sd2 and in no acute distress. Head/Face: Normocephalic, atraumatic. Eyes: EOMI, normal conjunctiva bilaterally Chest/axilla: Normal chest wall appearance and motion. Nontender with no deformity. Cardiovascular: Regular rate and rhythm with a normal S1 and S2. No gallops, murmurs, or rubs. 2+ distal pulses. Respiratory: Lungs have equal breath sounds bilaterally, clear to auscultation and percussion. No rales, rhonchi or wheezes noted. No increased work of breathing, no retractions or nasal flaring. Abdomen/GI: Soft, non-tender, with normal bowel sounds. No guarding or rebound. No evidence of tenderness throughout. Skin: Warm, dry with normal turgor. Normal color with no rashes, no lesions, and no evidence of cellulitis. MS/ Extremity: Pulses equal, no cyanosis. Neurovascular intact. Full, normal range of motion. Ambulatory without difficulty. Psych: Awake, alert, with orientation to person, place and time. Behavior, mood, and affect are within normal limits. 18:12 ECG was reviewed by the Attending Physician. NSR, rate 72, sinus arrhythmia, wandering sd2 baseline, no STEMI criteria, TWI in inferior and lateral leads Vital Signs: 15:34 BP 82 / 55; Pulse 63; Resp 18 S; Temp 99.1(TE); Pulse Ox 97% on R/A; Weight 79.38 kg jg9 (R); Height 5 ft. 6 in. (167.64 cm) (R); Pain 0/10; 15:35 BP 98 / 59; Pulse 72; Resp 17; Pulse Ox 97% on R/A; tw2 17:02 BP 110 / 59; Pulse 71; Resp 17; Pulse Ox 99% on R/A; tw2 18:00 BP 144 / 71; Pulse 70; Resp 17; Pulse Ox 99% on R/A; tw2 18:55 BP 138 / 65; Pulse 65; Resp 17; Pulse Ox 99% on R/A; tw2 15:34 Body Mass Index 28.25 (79.38 kg, 167.64 cm) jg9 MDM: 15:32 Patient medically screened. sd2 15:38 Differential Diagnosis Heat exposure, dehydration, electrolyte abnormality, sepsis, UTI sd2 among others. Data reviewed: vital signs, nurses notes. 18:53 Data reviewed: lab test result(s). Counseling: I had a detailed discussion with the sd2 patient and/or guardian regarding: the historical points, exam findings, and any diagnostic results supporting the discharge/admit diagnosis, lab results, the need for outpatient follow up, to return to the emergency department if symptoms worsen or persist or if there are any questions or concerns that arise at home. Medical screen evaluation completed. EMTALA emergency medical condition absent. ED course: Labs reviewed. Labs grossly WNCL aside from creatinine which is mildly elevated compared to patient's baseline likely 2/2 dehydration and heat exposure. CK normal. Doubt rhabdo at this time. BP has improved and remained stable. pt making urine and feeling much improved. He will follow up next week with his PCP for a recheck of his kidney function and verbalizes understanding of discharge plan and strict return precautions.. 02/19 15:38 Order name: CBC with Diff; Complete Time: 17:16 02/19 15:38 Order name: CMP; Complete Time: 17:16 02/19 15:38 Order name: Magnesium; Complete Time: 17:16 02/19 15:38 Order name: Troponin High Sensitivity; Complete Time: 17:16 02/19 15:38 Order name: CK; Complete Time: 17:16 02/19 15:38 Order name: Procalcitonin; Complete Time: 17:16 02/19 15:38 Order name: EKG - Nurse/Tech; Complete Time: 16:07 02/19 15:38 Order name: Urine Dipstick-Ancillary (obtain specimen); Complete Time: 19:10 02/19 15:38 Order name: Urine Microscopic Only; Complete Time: 19:15 02/19 18:41 Order name: Urine Dipstick-Ancillary; Complete Time: 18:51 EDMS Administered Medications: 15:57 Drug: NS 0.9% 1000 ml Route: IV; Rate: 125 ml/hr; Site: right antecubital; tw2 19:39 Follow up: Response: No adverse reaction; IV Status: Completed infusion lg3 Disposition Summary: 02/19/22 18:56 Discharge Ordered Location: Home sd2 Problem: new sd2 Symptoms: have improved sd2 Condition: Stable sd2 Diagnosis - Exposure to excessive natural heat, initial encounter sd2 - Dehydration sd2 Followup: sd2 - With: Private Physician - When: 2 - 3 days - Reason: Recheck today's complaints, Continuance of care, Re-evaluation by your physician, Recheck of kidney function levels Followup: sd2 - With: Emergency Department - When: As needed - Reason: Discharge Instructions: - Discharge Summary Sheet sd2 - Dehydration, Elderly sd2 - Heat Exhaustion sd2 Forms: - Medication Reconciliation Form sd2 - Thank You Letter sd2 - Antibiotic Education sd2 - Prescription Opioid Use sd2 Signatures: Dispatcher [employer] Arianna Awad RN RN tw2 Stephy Hsieh RN RN jg9 Sara Ross sd2 Lucero Cook RN lg3
[2022-02-19 19:08] LABS: Urine Bacteria <20 /HPF (<20); Urine RBC <5 /HPF (None Seen)
[2022-02-19 20:22] VITALS: TEMP 99.1
[2022-02-19 20:28] VITALS: O2SAT 99
[2022-02-19 20:31] VITALS: BP 138/65
--- NOTE | 2022-02-21 09:30 | EKG ---
Test Date: 2022-02-19 Test Time: 16:01:44 Bilingual Sales Consultant: PRINCESS MEASUREMENT RESULTS: Intervals: Rate: 72 TX: 162 QRSD: 92 QT: 408 QTc: 446 [place]: P: 67 TX: 162 QRS: 32 T: -31 INTERPRETIVE STATEMENTS: Normal sinus rhythm with sinus arrhythmia Inferior infarct, age undetermined ST & T wave abnormality, consider lateral ischemia Abnormal ECG Compared to ECG 12/17/2020 20:24:51 ST (T wave) deviation now present Possible ischemia now present Myocardial infarct finding still present Electronically Signed On 02-21-22 09:25:07 CDT by Wai Aquino
== END 2022-02-19 19:56 | disposition home or self-care (01) ==
LOC: ER 15:31
DX: E86.0 Dehydration (principal); X30.XXXA Exposure to excessive natural heat, initial encounter; Y93.9 Activity, unspecified; I10 Essential (primary) hypertension; E11.9 Type 2 diabetes mellitus without complications; Z95.1 Presence of aortocoronary bypass graft
CPT/HCPCS: 96361; 93005; 85025; 36415; 83735; 82550; 84484; 80053; 84145; 96360; 99284; J7030; 81003; 81015

== ENCOUNTER 2022-05-14 18:39 | Emergency (ER) | payer OTHER ==
--- OUTSIDE RECORDS SUMMARY | 2022-05-14 18:48 | XMS REPORT | Continuity of Care Document ---
:1950 Author Organization [facility] Address [address] [place] [address] Dr. Blue [address] [place] [id number] Care Team Providers Name Role Phone SUHAIL SMITH Attending Clinician Unavailable SUHAIL SMITH Admitting Clinician Unavailable Problems This patient has no known problems. Allergies, Adverse Reactions, Alerts Allergy Allergy Status Severity Reaction(s) Onset Inactive Treating Comm ents Source Name Type Date Date Clinician NO KNOWN Allergy Active [facility] Medications This patient has no known medications. Procedures This patient has no known procedures. Results Test Description Test Time Test Comments Results Result Comments Source BLOOD CULTURE 2018-11-23 02:01:00 Test Item Value Reference Range Interpretation Comme nts CULTURE (BEAKER) (test code = 1095) No growth in 5 days BLOOD [id number] 02:01:00 Test Item Value Reference Range Interpretation Comments CULTURE (BEAKER) (test No growth in 5 days code = 1095) POCT-GLUCOSE [id number] 17:22:00 Test Item Value Reference Range Interpretation Comments POC-GLUCOSE METER 212 mg/dL 70-[address] [facility] ([facility]) (test code = [facility] 1538) [address] POCT-GLUCOSE [id number] 12:44:00 Test Item Value Reference Range Interpretation Comments POC-GLUCOSE METER 229 mg/dL 70-[address] [facility] ([facility]) (test code = [facility] 1538) 134[address] POCT-GLUCOSE [id number] 06:22:00 Test Item Value Reference Range Interpretation Comments POC-GLUCOSE METER 211 mg/dL 70-[address] [facility] [address] ([facility]) (test code = [facility] [place] [facility] 1538) [address] BASIC METABOLIC [id number] 06:20:00 Test Item Value Reference Range Interpretation [...] 0-0 (BEAKER) (test code = 413) POCT-GLUCOSE [id number] 23:49:00 Test Item Value Reference Range Interpretation Comments POC-GLUCOSE METER 230 mg/dL 70-110 H TESTED AT [place] [address] (BEAKER) ([facility] = [facility] [place] 1538[facility] [address] POCT-GLUCOSE [id number] 18:04:00 Test Item Value Reference Range Interpretation Comments POC-GLUCOSE METER 256 mg/dL 70-110 H TESTED AT [place] [address] (BEAKER) (test code = [facility] 1538) [address] URINALYSIS WITH MICROSCOPIC IF [id number] 14:11:00 Test Item Value Reference Range Interpretation [...] 463) SOURCE(BEAKER) (test code = 2795) POCT-GLUCOSE [id number] 12:12:00 Test Item Value Reference Range Interpretation Comments POC-GLUCOSE METER 227 mg/dL 70-110 H TESTED AT [place] [address] (BEAKER) (test code = [facility] 1538) [address] POCT-GLUCOSE [id number] 11:58:00 Test Item Value Reference Range Interpretation Comments POC-GLUCOSE METER 243 mg/dL 70-110 H TESTED AT [place] [address] (BEAKER) (test code = [facility] 1538) [address] BASIC METABOLIC [id number] 05:42:00 Test Item Value Reference Range Interpretation [...] 0-0 (BEAKER) (test code = 413) POCT-GLUCOSE [id number] 17:25:00 Test Item Value Reference Range Interpretation Comments POC-GLUCOSE METER 267 mg/dL 70-110 H TESTED AT [place] [address] (BEAKER) (test code = [facility] [place] 1538) [address] URINALYSIS W/ REFLEX URINE [id number] 14:12:00 Test Item Value Reference Range Interpretation [...] Rare SOURCE(BEAKER) (test code = 2795) POCT-GLUCOSE [id number] 11:51:00 Test Item Value Reference Range Interpretation Comments POC-GLUCOSE METER 258 mg/dL 70-110 H TESTED AT [place] [address] (BEAKER) (test code = [facility] [place] 1538) [address] POCT-GLUCOSE [id number] 09:43:00 Test Item Value Reference Range Interpretation Comments POC-GLUCOSE METER 235 mg/dL 70-[address] [facility] [address] (BEAKER) (test code = [facility] [place] 1538) [address] TROPONIN [id number] 05:55:00 Test Item Value Reference Range Interpretation [...] acute neurological disease, and persistent tachyarrhythmia.BASIC METABOLIC [id number] 05:53:00 Test Item Value Reference Range Interpretation [...] 0-0 (BEAKER) (test code = 413) POCT-GLUCOSE [id number] 01:42:00 Test Item Value Reference Range Interpretation Comments POC-GLUCOSE METER 239 mg/dL 70-[address] [facility] [address] ([facility]) (test code = [facility] [place] 1538) [address] TROPONIN [id number] 00:15:00 Test Item Value Reference Range Interpretation [...] 463) SOURCE(BEAKER) (test code = 2795) URINALYSIS [id number] 00:06:00 Test Item Value Reference Range Interpretation Comments RBC UA (BEAKER) (test code = 519) 1 /HPF WBC UA (BEAKER) (test code = 520) 5 /HPF BACTERIA (BEAKER) (test code = 517) Rare MUCUS (BEAKER) (test code = 1574) Rare TROPONIN [id number] 18:49:00 Test Item Value Reference Range Interpretation [...] acidosis, acute neurological disease, and persistent tachyarrhythmia.POCT-GLUCOSE [id number] 16:26:00 Test Item Value Reference Range Interpretation Comments POC-GLUCOSE METER 316 mg/dL 70-110 H Notified [place] Michaels MD/TESTED (BEAKER) (test code = AT [facility] 67[address] [place] 1538) [facility] 7703 0 POCT-GLUCOSE [id number] 13:27:00 Test Item Value Reference Range Interpretation Comments POC-GLUCOSE METER 272 mg/dL 70-[address] [facility] [address] (BEAKER) (test code = [facility] [place] 6732) [address] TROPONIN [id number] 11:19:00 Test Item Value Reference Range Interpretation [...] acute neurological disease, and persistent tachyarrhythmia.BASIC METABOLIC [id number] 07:39:00 Test Item Value Reference Range Interpretation [...] NOT APPLICABLE FOR DIALYSIS PATIEN TS. TROPONIN [id number] 06:49:00 Test Item Value Reference Range Interpretation [...] acidosis, acute neurological disease, and persistent tachyarrhythmia.POCT-GLUCOSE [id number] 05:50:00 Test Item Value Reference Range Interpretation Comments POC-GLUCOSE METER 244 mg/dL 70-110 H TESTED AT [place] [address] (BEAKER) (test code = [facility] [place] 1538) [address] CBC (HEMOGRAM ONLY)2018-11-17 04:38:00 Test Item Value [...] 0-0 (BEAKER) (test code = 413) POCT-GLUCOSE [id number] 23:38:00 Test Item Value Reference Range Interpretation Comments POC-GLUCOSE METER 232 mg/dL 70-110 H TESTED AT [place] [id number] (BEAKER) (test code = [place] 1538) [address] TROPONIN [id number] 18:59:00 Test Item Value Reference Range Interpretation [...] acidosis, acute neurological disease, and persistent tachyarrhythmia.POCT-GLUCOSE [id number] 18:22:00 Test Item Value Reference Range Interpretation Comments POC-GLUCOSE METER 244 mg/dL 70-[address] [facility] [address] (BEAKER) (test code = [facility] [place] 1538) [address] BASIC METABOLIC [id number] 06:29:00 Test Item Value Reference Range Interpretation [...] (AKER) (test code = 412) PLATELET COUNT ([facility]) (test 379 K/CU MM 150-450 code = 756) MEAN PLATELET VOLUME (AKER) 10.6 fL 9.4-12.4 (test code = 754) NUCLEATED RED BLOOD CELLS 0 /100 WBC 0-0 ([facility]) (test code = 413) POCT-GLUCOSE [id number] 05:53:00 Test Item Value Reference Range Interpretation Comments POC-GLUCOSE METER 208 mg/dL 70-110 H TESTED AT [place] [address] ([facility]) (test code = [place] 1538) [address] POCT-GLUCOSE [id number] 23:49:00 Test Item Value Reference Range Interpretation Comments POC-GLUCOSE METER 221 mg/dL 70-110 H TESTED AT [place] [address] ([facility]) (test code = [place] 1538) [address] POCT-GLUCOSE [id number] 17:37:00 Test Item Value Reference Range Interpretation Comments POC-GLUCOSE METER 237 mg/dL 70-110 H TESTED AT [place] [address] ([facility]) (test code = [place] 1538) [address] POCT-GLUCOSE [id number] 12:33:00 Test Item Value Reference Range Interpretation Comments POC-GLUCOSE METER 223 mg/dL 70-110 H TESTED AT [place] [address] ([facility]) (test code = [place] 1538) [address] POCT-GLUCOSE [id number] 06:38:00 Test Item Value Reference Range Interpretation Comments POC-GLUCOSE METER 247 mg/dL 70-[address] [facility] [address] (BEAKER) (test code = [facility] [place] 1538) [address] BASIC METABOLIC [id number] 06:01:00 Test Item Value Reference Range Interpretation [...] 0-0 (BEAKER) (test code = 413) POCT-GLUCOSE [id number] 02:35:00 Test Item Value Reference Range Interpretation Comments POC-GLUCOSE METER 220 mg/dL 70-110 H TESTED AT [place] [address] ([facility]) (test code = [facility] 1538) [address] POCT-GLUCOSE [id number] 16:55:00 Test Item Value Reference Range Interpretation Comments POC-GLUCOSE METER 239 mg/dL 70-110 H TESTED AT [place] [address] ([facility]) (test code = [facility] 1538) [address] POCT-GLUCOSE [id number] 12:09:00 Test Item Value Reference Range Interpretation Comments POC-GLUCOSE METER 246 mg/dL 70-110 H TESTED AT [place] [address] ([facility]) (test code = [facility] 1538) [address] BASIC METABOLIC [id number] 05:52:00 Test Item Value Reference Range Interpretation [...] NOT APPLICABLE FOR DIALYSIS PATIEN TS. POCT-GLUCOSE [id number] 05:37:00 Test Item Value Reference Range Interpretation Comments POC-GLUCOSE METER 181 mg/dL 70-110 H TESTED AT [place] [address] ([facility]) (test code = [facility] [place] 1538) [address] CBC (HEMOGRAM ONLY)2018-11-14 05:37:00 Test Item Value [...] 0-0 (BEAKER) (test code = 413) POCT-GLUCOSE [id number] 00:10:00 Test Item Value Reference Range Interpretation Comments POC-GLUCOSE METER 225 mg/dL 70-110 H TESTED AT [place] [address] ([facility]) (test code = [facility] [place] [facility] 1538) [address] POCT-GLUCOSE [id number] 17:58:00 Test Item Value Reference Range Interpretation Comments POC-GLUCOSE METER 221 mg/dL 70-110 H TESTED AT [place] [address] ([facility]) (test code = [facility] [place] 1538) [address] CT, SPINE, CERVICAL, WO [id number] 15:33:00FINAL REPORT EXAM: CERVICAL SPINE CT WITHOUT CONTRAST CLINICAL INDICATION: pain COMPARISON: None TECHNIQUE: Axially oriented 3.0 mm thick images were obtained through the entire cervical spine, without contrast. Sagittal and coronal reformations are also provided in osseous and soft tissue algorithms. DOSE REDUCTION: Dose modulation, iterative reconstruction, and/or weight-based a djustment of the mA/kV was utilized to reduce the radiation dose to as low as reasonably achievable.FINDINGS:There is no fracture or traumatic malalignment. The [...] the current exam. IMPRESSION: Mild degenerative changes. Nocritical canal of foraminal stenosis. No fracture or traumatic malalignment. Signed: JR Stein Robert MDReport Verified Date/Time: 11/13/2018 15:33:48 Reading Location: [facility] Radiology Reading Room CT, BRAIN, WITHOUT [id number] 15:22:00FINAL REPORT CT head without contrast. Reason [...] contents, bones and surrounding soft tissues are un remarkable. Air fluid levels in the left sphenoid sinus. Tympanomastoid cavities are clear. Impressions: Evolving large volume right MCA territory infarct, with slightly increased amount of petechial hemorrhage. Signed: Bethany Parker MDReport Verified Date/Time: 11/13/2018 15:22:34 Reading Location: [address] Consult Reading Room -GLUCOSE [id number] 12:10:00 Test Item Value Reference Range Interpretation Comments POC-GLUCOSE METER 218 mg/dL 70-[address] [facility] [address] (BEAKER) (test code = [facility] 1538) [address] BASIC METABOLIC [id number] 08:05:00 Test Item Value Reference Range Interpretation [...] PATIEN TS. CBC W/PLT COUNT & AUTO [id number] 08:02:00 Test Item Value Reference Range Interpretation [...] % 0-1 PERCENT (BEAKER) (test code = 0393) POCT-GLUCOSE [id number] 05:35:00 Test Item Value Reference Range Interpretation Comments POC-GLUCOSE METER 190 mg/dL 70-[address] [facility] [address] (BEAKER) (test code = [place] [place] 1538) [address] POCT-GLUCOSE [id number] 00:25:00 Test Item Value Reference Range Interpretation Comments POC-GLUCOSE METER 193 mg/dL 70-[address] [facility] [address] ([facility]) (test code = [place] 1538) [address] POCT-GLUCOSE [id number] 18:09:00 Test Item Value Reference Range Interpretation Comments POC-GLUCOSE METER 204 mg/dL 70-[address] [facility] [address] ([facility]) (test code = [place] 1538) [address] CORDELIA, CAROTID STENT W [id number] 14:42:00Reason for exam:->R carotid stent for carotid stenosisFINAL REPORT DATE OF PROCEDURE: 11/07/2018 SURGEON: Garrett Echevarria M.D. SLATE CUTTER: Lon Lopez MD PREOPERATIVE DIAGNOSIS: Right hemispheric stroke with severe right carotid artery stenosis POST OPERATIVE DIAGNOSIS: Right hemispheric stroke with severe right carotid artery stenosis OPERATION: 1) Cerebral Angiogram2) right carotid stent IMPLANTS: Precise Pro Stent 3e42Tcer stent 8-6 x 40 ANESTHESIA: Moderate sedation [...] dilation was performed and then a 9 Gabonese short sheath was placed in the right common femoral artery and placed on heparinized flush. Angiography was performed via the sheath confirmed satisfactory placement. A 5 Gabonese diagnostic glide catheter was then used to catheterize the right common carotid artery. The catheter was then advancedinto the distal external carotid artery over a [...] wire and an SL 10 microcatheter was u sed to advance across the plaque and positioned [...] Xact 8-6 x 40mm stent was deployed usingstandard monorail technique. The stent spanned the distal [...] and apposition. The patient had been pretreated withglycopyrrolate and the anesthesia team had atropine on [...] - PA, LATERAL - ILIAC) The sheath entersabove the femoral bifurcation. There is atherosclerotic disease [...] most stenotic segment is less than 1 mmand the normal distal diameter is 6.48 mm, measuring as 85% stenosis by NASCET technique. RIGHT COMMON CAROTID ARTERY (DSA - PA, LATERAL, OBLIQUE - HEAD) There is a small size posterior communicating artery. There is no anterograde filling through the anterior cerebral artery. No vascular malformationor arteriovenous shunting is noted. No stenosis or vasospasm is observed. No significant abnormalities are seen in the capillary and venous phases. The visualized portions of the external carotid artery and its branches are normal without evidence of ulceration or stenosis. There is preferential filling through the external carotid artery branches with robust opacification of the superficial temporalartery, occipital artery, middle meningeal artery, and others. There is no evidence of arteriovenousshunting. The venous phase is normal. Following stenting, there is improved anterograde flow throughthe right internal carotid artery with physiological filling of the distal vessels. The small caliber right A1 GUCCI is now opacified with opacification of the right distal GUCCI territory. SUPERVISION ANDINTERPRETATION: Angiographic study demonstrates: 1. Severe right carotid stenosis, successfully treated with an 8 x 40mm Precise Pro carotid stent and 8-6 x 40 Xact carotid stent No immediate technicalor clinical complications. Signed: Garrett Echevarria MDReport Verified Date/Time: 11/12/2018 14:42:01 Reading Location: [facility] Y026 Neuro Angio Reading Room Electronically signed by: GARRETT ECHEVARRIA MD on 0 11/12/2018 02:42 PMNV, ANGIOGRAM, [id number] 14:41:00Reason for exam:- >right ICA stenosisFINAL REPORT DATE OF PROCEDURE: November 05, 2018 SURGEON: Garrett Echevarria M.D. SLATE CUTTER: Lon Lopez MD PREOPERATIVE DIAGNOSIS: Right carotid [...] referred for diagnostic angiogram for further evaluation. ND OCEDURE: Following explanation of the benefits, risks and [...] right common femoral artery and maintained on hepa rinized flush. Using coaxial technique, a 5-Fr Angled [...] catheter. 3-dimensional angiogram was performed and processed jhonathan independent workstation. These images were reviewed by Dr. Echevarria separately. The catheter was removed. The femoral sheath was removed and hemostasis was achieved with a 6-Gabonese AngioSeal closure device. The patient tolerated the procedure well and was taken to recovery in stable condition. FINDINGS:RIGHT COMMON FEMORAL ARTERY (DSA - PA, LATERAL - ILIAC) The sheath enters above the femoral bifurcation. There is atherosclerotic disease of the common femoral artery below the level of sheath entry. 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 The dila tion measures 2.9 cm. LEFT VERTEBRAL ARTERY (DSA - PA, LATERAL - HEAD) The left vertebral artery is patent without significant stenotic lesion. There is a stenotic lesion of the mid basilar artery at the level of the anterior inferior cerebellar artery. The stenotic segment measures 3 mm across versus4.38 mm for the normal distal basilar artery. [...] is a small size posterior communicating artery. Thereis no anterograde filling through the anterior cerebral [...] LATERAL, OBLIQUE - HEAD) There is spontaneous adult crossing guard ssfilling across the anterior communicating artery with opacification of the distal right anterior cerebral artery territory. Left side supplies the majority of the right GUCCI territory and cross fills into the MCA as well. There is some antegrade flow with washout of the MCA territory. There is a large size posterior communicating artery. No vascular malformations, stenosis, or vasospasm is observed.No significant abnormalities are seen in the capillary and venous phases. The venous phase demonstrates patent transverse and sigmoid sinuses. The visualized portions of the external carotid artery andits branches are normal without evidence of ulceration or stenosis. There is no evidence of arteriovenous shunting. The venous phase is normal. SUPERVISION AND INTERPRETATION: Angiographic study demonstrates: 1. Severe right carotid stenosis, 85% 2. Collateral circulation to the right internal carotidartery via left ICA and anterior commuting artery. No immediate technical or clinical complications.Signed: Garrett Echevarria MDReport Verified Date/Time: 11/12/2018 14:41:58 Reading Location: [facility] Y026 Neuro Angio Reading Room POCT-GLUCOSE METER 2018-11-12 12:37:00 Test Item Value Reference Range Interpretation Comments POC-GLUCOSE METER 157 mg/dL 70-110 H TESTED AT [place] [address] ([facility]) (test code = [facility] 1538) [address] POCT-GLUCOSE [id number] 06:41:00 Test Item Value Reference Range Interpretation Comments POC-GLUCOSE METER 176 mg/dL 70-110 H TESTED AT [place] [address] ([facility]) (test code = [facility] 1538) [address] BASIC METABOLIC [id number] 06:30:00 Test Item Value Reference Range Interpretation [...] 0-0 (BEAKER) (test code = 413) POCT-GLUCOSE [id number] 00:14:00 Test Item Value Reference Range Interpretation Comments POC-GLUCOSE METER 199 mg/dL 70-110 H TESTED AT [place] [address] ([facility]) ([facility] 1538) [address] POCT-GLUCOSE [id number] 17:13:00 Test Item Value Reference Range Interpretation Comments POC-GLUCOSE METER 221 mg/dL 70-110 H TESTED AT [place] [address] ([facility]) (test [facility] = [facility] 1538) [address] POCT-GLUCOSE [id number] 12:47:00 Test Item Value Reference Range Interpretation Comments POC-GLUCOSE METER 184 mg/dL 70-110 H TESTED AT [place] [address] ([facility]) (test [facility] = [facility] 1538) [address] BASIC METABOLIC [id number] 06:22:00 Test Item Value Reference Range Interpretation [...] NOT APPLICABLE FOR DIALYSIS PATIEN TS. POCT-GLUCOSE [id number] 06:07:00 Test Item Value Reference Range Interpretation Comments POC-GLUCOSE METER 183 mg/dL 70-[address] [facility] [address] (BEAKER) (test code = [facility] [place] 1538) [id number] CBC (HEMOGRAM ONLY)2018-11-11 05:13:00 Test Item Value [...] 0-0 (BEAKER) (test code = 413) POCT-GLUCOSE [id number] 00:14:00 Test Item Value Reference Range Interpretation Comments POC-GLUCOSE METER 176 mg/dL 70-[address] [facility] ([facility]) (test code = [place] 1538) [address] POCT-GLUCOSE [id number] 17:43:00 Test Item Value Reference Range Interpretation Comments POC-GLUCOSE METER 195 mg/dL 70-110 H TESTED AT [place] [address] ([facility]) (test code = [place] 1538) [address] POCT-GLUCOSE [id number] 12:08:00 Test Item Value Reference Range Interpretation Comments POC-GLUCOSE METER 170 mg/dL 70-110 H TESTED AT [place] [address] ([facility]) (test code = [place] [place] 1538) [address] BASIC METABOLIC [id number] 07:13:00 Test Item Value Reference Range Interpretation [...] NOT APPLICABLE FOR DIALYSIS PATIEN TS. POCT-GLUCOSE [id number] 06:08:00 Test Item Value Reference Range Interpretation Comments POC-GLUCOSE METER 178 mg/dL 70-110 H TESTED AT [place] [address] ([facility]) (test code = [place] 1538) [address] CBC (HEMOGRAM ONLY)2018 05:55:00 Test Item Value [...] 0-0 (BEAKER) (test code = 413) POCT-GLUCOSE [id number] 01:11:00 Test Item Value Reference Range Interpretation Comments POC-GLUCOSE METER 160 mg/dL 70-110 H TESTED AT [place] [address] ([facility]) (test code = [place] 1538) [address] POCT-GLUCOSE [id number] 12:18:00 Test Item Value Reference Range Interpretation Comments POC-GLUCOSE METER 147 mg/dL 70-110 H TESTED AT [facility] 6720 (BEAKER) (test code = [place] 1538) [address] POCT-GLUCOSE [id number] 08:20:00 Test Item Value Reference Range Interpretation Comments POC-GLUCOSE METER 155 mg/dL 70-[address] [facility] 67[address] (BEAKER) (test code = [facility] 1538) 17149 BASIC METABOLIC [id number] 06:07:00 Test Item Value Reference Range Interpretation [...] MEAN CORPUSCULAR HEMOGLOBIN CONC 34.0 GM/DL 32.3-36.5 (AKER) (test code = 752) RED CELL DISTRIBUTION WIDTH 14.3 % 11.6-14.4 (AKER) (test code = 412) PLATELET COUNT ([facility]) (test 252 K/CU MM 150-450 code = 756) MEAN PLATELET VOLUME (AKER) 10.0 fL 9.4-12.4 (test code = 754) NUCLEATED RED BLOOD CELLS 0 /100 WBC 0-0 (AKER) (test code = 413) POCT-GLUCOSE [id number] 23:57:00 Test Item Value Reference Range Interpretation Comments POC-GLUCOSE METER 140 mg/dL 70-110 H TESTED AT [place] [address] ([facility]) (test code = [facility] 1538) [address] POCT-GLUCOSE [id number] 17:30:00 Test Item Value Reference Range Interpretation Comments POC-GLUCOSE METER 127 mg/dL 70-110 H TESTED AT [place] [address] ([facility]) (test code = [facility] 1538) [address] POCT-GLUCOSE [id number] 11:54:00 Test Item Value Reference Range Interpretation Comments POC-GLUCOSE METER 133 mg/dL 70-110 H TESTED AT [place] [address] ([facility]) (test code = [facility] 1538) [address]62 POCT-GLUCOSE [id number] 06:37:00 Test Item Value Reference Range Interpretation Comments POC-GLUCOSE METER 110 mg/dL 70-110 TESTED AT [place] [address] ([facility]) (test code = [facility] 1538) [address] BASIC METABOLIC [id number] 06:28:00 Test Item Value Reference Range Interpretation [...] 0-0 (BEAKER) (test code = 413) POCT-GLUCOSE [id number] 01:21:00 Test Item Value Reference Range Interpretation Comments POC-GLUCOSE METER 131 mg/dL 70-[address] [facility] 67[address] (BEAKER) (test code = [place] [place] 1538) [address] POCT-GLUCOSE [id number] 18:16:00 Test Item Value Reference Range Interpretation Comments POC-GLUCOSE METER 159 mg/dL 70-110 H TESTED AT [place] [address] ([facility]) (test code = [place] 1538) [id number] 15:58:00 Test Item Value Reference Range Interpretation Comments ACTIVATED CLOTTING TIME 252 sec TEST ED AT [place] [address] ([facility]) (test code = [place] 441) [address] POCT-GLUCOSE [id number] 13:49:00 Test Item Value Reference Range Interpretation Comments POC-GLUCOSE METER 155 mg/dL 70-110 H TESTED AT [place] [address] ([facility]) (test code = [place] 1538) [id number] POCT-P2Y12 PLATELET [id number] 12:44:00 Test Item Value Reference Range Interpretation Comments POC-P2Y12 PLATELET AGG ([facility]) (test 83 PRU code = 2303) RANGE INFORMATION: PRU reference range is 194-418. Post Drug Results: Lower PRU levels are associated with expected antiplatelet effect. Values may be below the stated reference range above. The post-drug PRU values reported in the Ver[employer]Now P2Y12 package insert are [id number].CT, BRAIN, WITHOUT [id number] 09:26:[address], BRAIN, WITHOUT CONTRAST CLINICAL INDICATION: Neuro deficit(s),subacuteafter starting DAPT in setting of acute large [...] the prior examination (annotated on image 11). Nonew hemorrhages developed. There is no midline shift or hydrocephalus. Osseous structures are intact. IMPRESSION: Involving right MCA territory infarct. Diffuse edema with pseudocyst subarachnoid hemorrhage. Hemorrhages are not excluded. Short-term follow-up is advised. Continuing evolution of hemorrhagic lesion in the right temporal lobe without extension or expansion. If there is persistent clinical concern for intracranial pathology, MR examination is recommended for further characterization. Signed: JR Stein Robert MDReport Verified Date/Time: 11/07/2018 09:26:55 Reading Location: [facility] C013V Neuro Reading Room POCT-GLUCOSE [id number] 06:41:00 Test Item Value Reference Range Interpretation Comments POC-GLUCOSE METER 186 mg/dL 70-[address] [facility] [address] (BEAKER) (test code = [place] 1538) [address] POCT-P2Y12 PLATELET [id number] 06:16:00 Test Item Value Reference Range Interpretation Comments POC-P2Y12 PLATELET AGG (BEAKER) (test 247 PRU code = 2303) RANGE INFORMATION: PRU reference range is 194-418. Post Drug Results: Lower PRU levels are associated with expected antiplatelet effect. Values may be below the stated reference range above. The post-drug PRU values reported in the Ver[employer]Now P2Y12 package insert are [id number].BASIC METABOLIC [id number] 06:01:00 Test Item Value Reference Range Interpretation [...] 0-0 (BEAKER) (test code = 413) POCT-GLUCOSE [id number] 23:34:00 Test Item Value Reference Range Interpretation Comments POC-GLUCOSE METER 173 mg/dL 70-[address] [facility] [address] (BEAKER) (test code = [place] 1538) [id number] RAD, ABDOMEN/KUB, 1 VIEW [id number] 19:42:00Reason for exam:->verify corpak placementShould this be performed at the bedside?->YesFINAL REPORT EXAMINATION: SUPINE ABDOMEN CLINICAL INDICATION: FEEDING TUBE PLACE MENT IMPRESSION: Tip of the feeding tube projects over the right upper abdomen in the region of the gastric pylorus. Bowel gas pattern is overall nonspecific. Moderate to large volume of inspissated stool is noted in the colon which may reflect a component of dysmotility with constipation. Signed: Shruthi Neumann MDReport Verified Date/Time: 11/06/2018 19:42:40 Reading Location: [address] Reading Room POCT-GLUCOSE [id number] 18:59:00 Test Item Value Reference Range Interpretation Comments POC-GLUCOSE METER 143 mg/dL 70-[address] [facility] [address] ([facility]) (test code = KWASI Rowe [facility] 1538) [id number] POCT-GLUCOSE [id number] 14:46:00 Test Item Value Reference Range Interpretation Comments POC-GLUCOSE METER 169 mg/dL 70-110 H TESTED AT [place] [address] ([facility]) (test code = [facility] 1538) [address] FL, ESOPH, SWALLOW FUNCTION, WITH CINE OR [id number] 14:10:00Reason for exam:->dysphagiaFINAL REPORT Modified barium swallow [...] for further details. Signed: Everton Garces MDReport Veri fied Date/Time: 11/06/2018 14:10:54 Reading Location: [facility] C013X [facility] Reading Room C METABOLIC [id number] 06:28:00 Test Item Value Reference Range Interpretation [...] NOT APPLICABLE FOR DIALYSIS PATIEN TS. POCT-GLUCOSE [id number] 06:19:00 Test Item Value Reference Range Interpretation Comments POC-GLUCOSE METER 216 mg/dL 70-[address] [facility] [address] (AKER) (test code = [place] 1538) [id number] CBC (HEMOGRAM ONLY)2018-11-06 05:54:00 Test Item Value [...] 0-0 (BEAKER) (test code = 413) POCT-GLUCOSE [id number] 01:34:00 Test Item Value Reference Range Interpretation Comments POC-GLUCOSE METER 175 mg/dL 70-110 H TESTED AT [place] [address] (BEAKER) (test code = KWASI Rowe [facility] 1538) [id number] POCT-GLUCOSE [id number] 19:12:00 Test Item Value Reference Range Interpretation Comments POC-GLUCOSE METER 150 mg/dL 70-110 H TESTED AT [place] [address] (BEAKER) (test code = KWASI Rowe [facility] 1538) [address] POCT-GLUCOSE [id number] 11:28:00 Test Item Value Reference Range Interpretation Comments POC-GLUCOSE METER 169 mg/dL 70-110 H TESTED AT [place] [address] (BEAKER) (test code = KLARISSAIA Soledad [facility] 1538) [address] BASIC METABOLIC [id number] 07:23:00 Test Item Value Reference Range Interpretation [...] NOT APPLICABLE FOR DIALYSIS PATIEN TS. POCT-GLUCOSE [id number] 06:37:00 Test Item Value Reference Range Interpretation Comments POC-GLUCOSE METER 158 mg/dL 70-110 H TESTED AT [place] [id number] (BEAKER) (test code = KWASI Rowe [facility] 1538) [id number] 05:42:00 Test Item Value Reference Range Interpretation Comments PROTIME (BEAKER) (test code = 12.9 seconds 11.7-14.7 759) INR (BEAKER) (test code = 370) 1.0 <=5.9 PARTIAL THROMBOPLASTIN TIME 35.4 seconds 22.5-36.0 (BEAKER) (test code = 760) RECOMMENDED COUMADIN/WARFARIN INR THERAPY RANGESSTANDARD DOSE: 2.0 - 3.0 Includes: PROPHYLAXIS for [...] 0-0 (BEAKER) (test code = 413) POCT-GLUCOSE [id number] 23:19:00 Test Item Value Reference Range Interpretation Comments POC-GLUCOSE METER 231 mg/dL 70-[address] [facility] [address] ([facility]) (test code = KWASI [place] 1538) [id number] POCT-GLUCOSE [id number] 18:05:00 Test Item Value Reference Range Interpretation Comments POC-GLUCOSE METER 245 mg/dL 70-[address] [facility] [address] (BEAKER) (test code = [place] 1538) [address] POCT-GLUCOSE [id number] 12:49:00 Test Item Value Reference Range Interpretation Comments POC-GLUCOSE METER 197 mg/dL 70-[address] [facility] [address] (BEAKER) (test code = [place] 1538) [address] BASIC METABOLIC [id number] 09:31:00 Test Item Value Reference Range Interpretation [...] 0-0 (BEAKER) (test code = 413) POCT-GLUCOSE [id number] 23:44:00 Test Item Value Reference Range Interpretation Comments POC-GLUCOSE METER 187 mg/dL 70-110 H TESTED AT [place] [address] ([facility]) (test code = KWASI Rowe [facility] 1538) [address] POCT-GLUCOSE [id number] 17:30:00 Test Item Value Reference Range Interpretation Comments POC-GLUCOSE METER 231 mg/dL 70-110 H TESTED AT [place] [address] ([facility]) ([facility] 1538) [address] POCT-GLUCOSE [id number] 12:40:00 Test Item Value Reference Range Interpretation Comments POC-GLUCOSE METER 205 mg/dL 70-110 H TESTED AT [place] [address] ([facility]) (test code = KWASI Rowe [facility] 1538) [address] BASIC METABOLIC [id number] 08:48:00 Test Item Value Reference Range Interpretation [...] NOT APPLICABLE FOR DIALYSIS PATIEN TS. POCT-GLUCOSE [id number] 06:30:00 Test Item Value Reference Range Interpretation Comments POC-GLUCOSE METER 153 mg/dL 70-110 H TESTED AT [place] [address] ([facility]) (test code = [facility] 1538) [address] CBC (HEMOGRAM ONLY)2018-11-03 05:19:00 Test Item Value [...] 0-0 (BEAKER) (test code = 413) POCT-GLUCOSE [id number] 23:20:00 Test Item Value Reference Range Interpretation Comments POC-GLUCOSE METER 133 mg/dL 70-110 H TESTED AT [place] [address] ([facility]) (test code = [facility] 1538) [address] POCT-GLUCOSE [id number] 17:27:00 Test Item Value Reference Range Interpretation Comments POC-GLUCOSE METER 107 mg/dL 70-[address] [facility] [address] (BEAKER) (test code = [place] 1538) [address] POCT-GLUCOSE [id number] 09:07:00 Test Item Value Reference Range Interpretation Comments POC-GLUCOSE METER 101 mg/dL 70-[address] [facility] [address] ([facility]) (test code = KWASI Rowe [facility] 1538) [address] TROPONIN [id number] 07:02:00 Test Item Value Reference Range Interpretation [...] acute neurological disease, and persistent tachyarrhythmia.BASIC METABOLIC [id number] 06:55:00 Test Item Value Reference Range Interpretation [...] 0-100 H (test code = 700) PROTHROMBIN [id number] 06:35:00 Test Item Value Reference Range Interpretation Comments PROTIME (BEAKER) (test code = 14.3 seconds 11.7-14.7 759) INR (BEAKER) (test code = 370) 1.1 <=5.9 RECOMMENDED COUMADIN/WARFARIN INR THERAPY RANGESSTANDARD DOSE: 2.0 - 3.0 Includes: PROPHYLAXIS for [...] 0-0 (BEAKER) (test code = 413) POCT-GLUCOSE [id number] 05:55:00 Test Item Value Reference Range Interpretation Comments POC-GLUCOSE METER 114 mg/dL 70-[address] [facility] [address] ([facility]) (test code = KWASI Rowe [facility] 1538) [address] POCT-GLUCOSE [id number] 23:27:00 Test Item Value Reference Range Interpretation Comments POC-GLUCOSE METER 133 mg/dL 70-110 H TESTED AT [place] [address] ([facility]) (test code = KWASI Rowe [facility] 1538) [address] RAD, ABDOMEN/KUB, 1 VIEW [id number] 18:35:00Reason for exam:->To check NG TUbe positionFINAL REPORT INDICATION:Confirm feeding tube placement. TECHNIQUE: Abdomen radiograph one view. FINDINGS / IMPRESSION:There is a feeding tube that follows the course of the stomachwith the tip projecting over the gastric antrum. Visualized bowel gas pattern is unremarkable. Osseous structures unremarkable. Signed: Bora Hawk MDReport Verified Date/Time: 11/01/2018 18:35:02Reading Location: [address] Consult Reading Room -GLUCOSE [id number] 17:52:00 Test Item Value Reference Range Interpretation Comments POC-GLUCOSE METER 134 mg/dL 70-110 H TESTED AT [place] [address] ([facility]) (test code = KWASI Rowe [facility] 1538) [address] POCT-GLUCOSE [id number] 15:42:00 Test Item Value Reference Range Interpretation Comments POC-GLUCOSE METER 135 mg/dL 70-110 H TESTED AT [place] [address] ([facility]) (test code = KWASI Rowe [facility] 1538) [address] [id number] 06:25:00 Test Item Value Reference Range Interpretation Comments MAGNESIUM ([facility]) (test code = 2.3 mg/dL 1.6-2.6 627) COMPREHENSIVE METABOLIC [id number] 06:25:00 Test Item Value Reference Range Interpretation Comments TOTAL PROTEIN 5.9 gm/dL 6.0-8.3 L ([facility]) (test code = 770) ALBUMIN ([facility]) 3.3 g/dL 3.5-5.0 L (test code = [...] PATIEN TS. CBC W/PLT COUNT & AUTO [id number] 06:11:00 Test Item Value Reference Range Interpretation [...] (test code = 2801) CT, BRAIN, WITHOUT [id number] 05:58:00FINAL REPORT EXAM: CT head without contrast. CLINICAL HISTORY: Stroke COMPARISON: 10/31/2018 TECHNIQUE: CT images of the head were obtained without intravenous contrast. This exam was performed according to our departmental dose optimization program which includes automated exposurecontrol, adjustment of the mA and/or kV according to patient's size and/or use of iterative reconstructive technique. FINDINGS:There is mild generalized parenchymal atrophy. There is an evolving demarcated acute infarct in the right frontal and right temporal lobes and right putamen. There is mild associated parenchymal mass effect. There is a small acute parenchymal hemorrhage with surrounding edemabut no significant mass effect in the right inferior temporal lobe measuring 1.4 x 1.3 cm (image 13). There is mild prominence of the left [...] chronic subdural hematoma cannot be excluded Signed: Barron Jeffrey MDReport Verified Date/Time: 11/01/2018 05:58:05 Reading Location: [facility] C0Y CT Body Reading Room POCT-GLUCOSE [id number] 23:14:00 Test Item Value Reference Range Interpretation Comments POC-GLUCOSE METER 165 mg/dL 70-110 H TESTED AT [place] [address] ([facility]) (test code = [place] 1538) [address] CT, CTANGIO [id number] 18:44:00FINAL REPORT CT, CTANGIO BRAIN, CT, CAROTID, [...] carotid artery is widely patent extracranially. Nonvascular findings:Aoma-hj-qvkyrrvj degenerative changes are present in the cervical [...] of the distal right middle branches. Signed: Edgard white JR, Robert MDReport Verified Date/Time: 10/31/2018 18:44:42 Reading Location: [facility] B1 C013V NeuroReading Room CT, CAROTID, [id number] 18:44:00FINAL REPORT CT, CTANGIO BRAIN, CT, CAROTID, [...] Precontrast images of the brain were also obtained.Stenosis evaluation reported in compliance with NASCET criteria. [...] carotid artery is widely patent extracranially. Nonvascular findings:Fcdc-ow-izwolscz degenerative changes are present in the cervical [...] of the distal right middle branches. Signed: Edgard white JR, Keenan ALEJANDRAeport Verified Date/Time: 10/31/2018 18:44:42 Reading Location: [facility] C013V NeuroReading Room [id number] 14:17:00 Test Item Value Reference Range Interpretation Comments RPR SCREEN (BEAKER) (test code = Nonreactive Nonreactive 420) CBC W/PLT COUNT & AUTO [id number] 12:54:00 Test Item Value Reference Range Interpretation [...] 3438) Received comment: User comments: Slide comments:HEMOGLOBIN [id number] 11:05:00 Test Item Value Reference Range Interpretation Comments HEMOGLOBIN A1C (BEAKER) (test code = 8.4 % 4.3-6.1 H 368) VITAMIN [id number] 07:43:00 Test Item Value Reference Range Interpretation Comments VITAMIN B12 (BEAKER) (test code = 595 pg/mL 213816 774) TROPONIN [id number] 07:21:00 Test Item Value Reference Range Interpretation [...] acidosis, acute neurological disease, and persistent tachyarrhythmia.C-REACTIVE [id number] 07:16:00 Test Item Value Reference Range Interpretation Comments C-REACTIVE PROTEIN (BEAKER) (test 4.19 mg/dL 0.00-0.50 H code = 676) TSH/FREE T4 IF [id number] 06:15:00 Test Item Value Reference Range Interpretation Comments THYROID STIMULATING HORMONE 2.46 uIU/mL 0.35-4.94 (BEAKER) (test code = 772) [id number] 05:54:00 Test Item Value Reference Range Interpretation Comments PROTIME (BEAKER) (test code = 14.3 seconds 11.7-14.7 759) INR (BEAKER) (test code = 370) 1.1 <=5.9 PARTIAL THROMBOPLASTIN TIME 29.4 seconds 22.5-36.0 (BEAKER) (test code = 760) RECOMMENDED COUMADIN/WARFARIN INR THERAPY RANGESSTANDARD DOSE: 2.0 - 3.0 Includes: PROPHYLAXIS for venous thrombosis, systemic embolization; TREATMENT for venous thrombosis and/or pulmonary embolus.HIGH RISK: Target INR is 2.5-3.5 for patients with mechanical heart valves.LIPID [id number] 05:51:00 Test Item Value Reference Range Interpretation Comments TRIGLYCERIDES (BEAKER) (test code = 191 mg/dL 540) CHOLESTEROL (BEAKER) (test code = 115 mg/dL 631) HDL CHOLESTEROL (BEAKER) (test code 41 mg/dL = 976) LDL CHOLESTEROL CALCULATED (BEAKER) 36 mg/dL (test code = 633) Triglyceride Reference Range: Low Risk <150 Borderline 150-199 High Risk 200- 499 Very High Risk >=500Cholesterol Reference Range: Low Risk <200 Borderline 200-239 High Risk >240HDL Cholesterol Reference Range: Low Risk >=60 High Risk <40LDL Cholesterol Reference Range: Optimal <100 Near Optimal 100-129 Borderline 130-159 High 160-189 Very High >=190COMPREHENSIVE METABOLIC [id number] 05:51:00 Test Item Value Reference Range Interpretation [...]
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
[2022-05-15 02:39] VITALS: O2SAT 99
[2022-05-15 02:41] VITALS: BP 117/76; TEMP 97.4
== END 2022-05-15 02:24 | disposition home or self-care (01) ==
LOC: ER 18:39
DX: R04.0 Epistaxis (principal); S00.33XA Contusion of nose, initial encounter
CPT/HCPCS: 70486; 99284

== ENCOUNTER 2022-12-06 03:23 | Emergency (ER) | payer OTHER ==
--- OUTSIDE RECORDS SUMMARY | 2022-12-06 03:28 | XMS REPORT | Continuity of Care Document ---
:1950 Author Organization [facility] t Address [address] [place] [address] Care Team Providers Name Role Phone SUAHIL SMITH Attending Clinician Unavailable SUHAIL SMITH Admitting Clinician Unavailable Problems Condition Condition Condition Status Onset Resolution Last Treating Co mments Source Name Details Category Date Date Treatment Clinician Date Stenosis Stenosis Disease Recurre [facility] of right of right nce 4-11 [facility] carotid carotid 00:00: Medical artery artery 00 Center History of History of Disease Recurre [facility] right right nce 4-11 kes common common 00:00: Medical carotid carotid 00 Center artery artery stent stent placement placement Essential Essential Disease Recurre [facility] hypertensi hypertensi coe 4-11 [facility] kes on on 00:00: [address] Acute Acute Disease Recur[facility] ischemic ischemic coe 4-03 [facility] stroke stroke 00:00: [address] Allergies, Adverse Reactions, Alerts Allergy Allergy Status Severity Reaction(s) Onset Inactive Treating Comm ents Source Name Type Date Date Clinician NO KNOWN Allergy Active [facility] Social History Social Habit Start Date Stop Date Quantity Comments Source History of Smokes tobacco [facility] tobacco use daily [facility] Sex Assigned At [birth year] [facility] 00:00:00 00:00:[address] [facility] Smoking Status Start Date Stop Date Source Smokes tobacco daily 2018-10-31 00:00:00 [facility] Medications Ordered Filled Start Stop Current Ordering Indication Dosage Frequency Signature Comments Components Source Medication Medication Date Date Medication? Clinician (SIG) Name Name levothyroxi Yes 50ug Take [address] ne 4-23 mcg by [facility] (SYNTHROID, 18:30: mouth Medic al LEVOTHROID) 02 Every Center 50 MCG morning on tablet an empty stomach. losartan Yes 12.5mg QD Take 12.[address] 12.5 MG 4-23 mg by [facility] halftab 18:30: mouth Medical half tablet 02 daily. [place] rosuvastati Yes 20mg QD Take [address] n (CRESTOR) 4-23 by mouth [facility] 20 MG 18:30: daily. Medical tablet 02 Center metoprolol Yes 12.5mg Q.5D Take 12.[address] (LOPRESSOR) 4-23 mg by [facility] 12.5 MG 18:30: mouth 2 Medical halftab 02 (two) Center half tablet times daily. metFORMIN Yes 1000mg Take 1,[address] (GLUCOPHAGE 4-23 mg by [facility] ) 1000 MG 18:30: mouth 2 Medic al tablet 02 (two) Center times daily with breakfast and dinner. ticagrelor Yes 90mg Q.5D Take 1 [facility] (BRILINTA) 4-23 tablet (90 Ree es 90 mg Tab 00:00: mg total) Med ical tablet 00 by mouth 2 Center (two) times daily. insulin Yes 8U Q.5D Inject [address] glargine 4-23 Units [facility] (LANTUS 00:00: subcutaneo Medi arabella U-100 00 usly 2 Center INSULIN) (two) 100 unit/mL times injection daily Use as directed. Procedures This patient has no known procedures. Results Test Description Test Time Test Comments Results Result Comments Source BLOOD CULTURE 2018-11-23 02:01:00 Test Item Value Reference Range Interpretation Comme nts CULTURE (BEAKER) (test code = 1095) No growth in 5 days BLOOD [id number] 02:01:00 Test Item Value Reference Range Interpretation Comments CULTURE (BEAKER) (test No growth in 5 days code = 1095) POCT-GLUCOSE [id number] 17:22:00 Test Item Value Reference Range Interpretation Comments POC-GLUCOSE METER 212 mg/dL 70-110 H TESTED AT [facility] 6720 (BEAKER) (test code = KWASI [place] 1538) [id number] POCT-GLUCOSE [id number] 12:44:00 Test Item Value Reference Range Interpretation Comments POC-GLUCOSE METER 229 mg/dL 70-110 H TESTED AT [facility] 6720 (BEAKER) (test code = KWASI Row[place] 1538) [address] POCT-GLUCOSE [id number] 06:22:00 Test Item Value Reference Range Interpretation Comments POC-GLUCOSE METER 211 mg/dL 70-110 H TESTED AT [facility] 6720 (BEAKER) (test code = [facility] [employer] [facility] 1538) [address] BASIC METABOLIC [id number] 06:20:00 Test Item Value Reference Range Interpretation [...] 0-0 (BEAKER) (test code = 413) POCT-GLUCOSE [id number] 23:49:00 Test Item Value Reference Range Interpretation Comments POC-GLUCOSE METER 230 mg/dL 70-110 H TESTED AT [place] [address] [facility] (test code = KWASI Rowe [facility] 1538) [address] POCT-GLUCOSE [id number] 18:04:00 Test Item Value Reference Range Interpretation Comments POC-GLUCOSE METER 256 mg/dL 70-110 H TESTED AT [place] [address] ([facility]) (test code = KLARISSAWA [place] [facility] 1538) [address] URINALYSIS WITH MICROSCOPIC IF [id number] 14:11:00 Test Item Value Reference Range Interpretation [...] 463) SOURCE(BEAKER) (test code = 2795) POCT-GLUCOSE [id number] 12:12:00 Test Item Value Reference Range Interpretation Comments POC-GLUCOSE METER 227 mg/dL 70-110 H TESTED AT [place] [address] [facility] (test code = [facility] [place] 1538) [address] POCT-GLUCOSE [id number] 11:58:00 Test Item Value Reference Range Interpretation Comments POC-GLUCOSE METER 243 mg/dL 70-110 H TESTED AT [place] [address] ([facility]) (test code = [facility] 1538) [address] BASIC METABOLIC [id number] 05:42:00 Test Item Value Reference Range Interpretation [...] 0-0 (BEAKER) (test code = 413) POCT-GLUCOSE [id number] 17:25:00 Test Item Value Reference Range Interpretation Comments POC-GLUCOSE METER 267 mg/dL 70-110 H TESTED AT [facility] 6720 (BEAKER) (test code = KWASI [place] 1538) [id number] URINALYSIS W/ REFLEX URINE [id number] 14:12:00 Test Item Value Reference Range Interpretation [...] Rare SOURCE(BEAKER) (test code = 2795) POCT-GLUCOSE [id number] 11:51:00 Test Item Value Reference Range Interpretation Comments POC-GLUCOSE METER 258 mg/dL 70-110 H TESTED AT [facility] 6720 (BEAKER) (test code = [facility] 1538) 87145 POCT-GLUCOSE [id number] 09:43:00 Test Item Value Reference Range Interpretation Comments POC-GLUCOSE METER 235 mg/dL 70-110 H TESTED AT [place] [id number] (BEAKER) (test code = [facility] 1538) [address] TROPONIN [id number] 05:55:00 Test Item Value Reference Range Interpretation [...] acute neurological disease, and persistent tachyarrhythmia.BASIC METABOLIC [id number] 05:53:00 Test Item Value Reference Range Interpretation [...] 0-0 (BEAKER) (test code = 413) POCT-GLUCOSE [id number] 01:42:00 Test Item Value Reference Range Interpretation Comments POC-GLUCOSE METER 239 mg/dL 70-110 H TESTED AT [facility] 6720 ([facility]) (test code = KWASI [place] 1538) [address] TROPONIN [id number] 00:15:00 Test Item Value Reference Range Interpretation [...] 463) SOURCE(BEAKER) (test code = 2795) URINALYSIS [id number] 00:06:00 Test Item Value Reference Range Interpretation Comments RBC UA (BEAKER) (test code = 519) 1 /HPF WBC UA (BEAKER) (test code = 520) 5 /HPF BACTERIA (BEAKER) (test code = 517) Rare MUCUS (BEAKER) (test code = 1574) Rare TROPONIN [id number] 18:49:00 Test Item Value Reference Range Interpretation [...] acidosis, acute neurological disease, and persistent tachyarrhythmia.POCT-GLUCOSE [id number] 16:26:00 Test Item Value Reference Range Interpretation Comments POC-GLUCOSE METER 316 mg/dL 70-110 H Notified R Xenia DUKES/TESTED ([facility]) (test code = AT [facility] 67[address] [facility] 1538) [facility] 7703 0 POCT-GLUCOSE [id number] 13:27:00 Test Item Value Reference Range Interpretation Comments POC-GLUCOSE METER 272 mg/dL 70-110 H TESTED AT [facility] 6720 ([facility]) (test code = KWASI Rowe [facility] 1538) 62[address] TROPONIN [id number] 11:19:00 Test Item Value Reference Range Interpretation [...] acute neurological disease, and persistent tachyarrhythmia.BASIC METABOLIC [id number] 07:39:00 Test Item Value Reference Range Interpretation [...] NOT APPLICABLE FOR DIALYSIS PATIEN TS. TROPONIN [id number] 06:49:00 Test Item Value Reference Range Interpretation Comments TROPONIN I (BEAKER) (test code = 0.23 ng/mL 0.00-0.03 HH 397) Troponin I (TnI) [...] acidosis, acute neurological disease, and persistent tachyarrhythmia.POCT-GLUCOSE [id number] 05:50:00 Test Item Value Reference Range Interpretation Comments POC-GLUCOSE METER 244 mg/dL 70-110 H TESTED AT [facility] 6720 ([facility]) (test code = KWASI [place] 1538) [id number] CBC (HEMOGRAM ONLY)2018-11-17 04:38:00 Test Item Value Reference Range Interpretation Comments WHITE BLOOD CELL COUNT (AKER) 13.2 K/ L 3.5-10.5 H (test code = 775) RED BLOOD CELL COUNT (BEAKER) 4.23 M/ L 4.63-6.08 L (test code = 761) HEMOGLOBIN (BEAKER) (test code = 11.9 GM/DL 13.7-17.5 L 410) HEMATOCRIT (AKER) (test code = 37.0 % 40.1-51.0 L 411) MEAN CORPUSCULAR VOLUME (AKER) 87.5 fL 79.0-92.2 (test code = 753) [...] 0-0 (BEAKER) (test code = 413) POCT-GLUCOSE [id number] 23:38:00 Test Item Value Reference Range Interpretation Comments POC-GLUCOSE METER 232 mg/dL 70-110 H TESTED AT [place] [address] ([facility]) (test code = [facility] 1538) [address] TROPONIN [id number] 18:59:00 Test Item Value Reference Range Interpretation [...] acidosis, acute neurological disease, and persistent tachyarrhythmia.POCT-GLUCOSE [id number] 18:22:00 Test Item Value Reference Range Interpretation Comments POC-GLUCOSE METER 244 mg/dL 70-110 H TESTED AT [place] [address] ([facility]) (test code = [facility] 1538) [address] BASIC METABOLIC [id number] 06:29:00 Test Item Value Reference Range Interpretation [...] code = 412) PLATELET COUNT (BEAKER) (test 379 K/CU MM 150-450 code = 756) MEAN PLATELET VOLUME (BEAKER) 10.6 fL 9.4-12.4 (test code = 754) NUCLEATED RED BLOOD CELLS 0 /100 WBC 0-0 (BEAKER) (test code = 413) POCT-GLUCOSE [id number] 05:53:00 Test Item Value Reference Range Interpretation Comments POC-GLUCOSE METER 208 mg/dL 70-110 H TESTED AT [facility] 6720 (BEAKER) (test code = KWASI [place] 1538) [address] POCT-GLUCOSE [id number] 23:49:00 Test Item Value Reference Range Interpretation Comments POC-GLUCOSE METER 221 mg/dL 70-110 H TESTED AT [place] [address] (BEAKER) (test code = KWASI Rowe [facility] 1538) [address] POCT-GLUCOSE [id number] 17:37:00 Test Item Value Reference Range Interpretation Comments POC-GLUCOSE METER 237 mg/dL 70-110 H TESTED AT [place] [address] (BEAKER) (test code = [facility] [place] [facility] 1538) [address] POCT-GLUCOSE [id number] 12:33:00 Test Item Value Reference Range Interpretation Comments POC-GLUCOSE METER 223 mg/dL 70-110 H TESTED AT [place] [address] (BEAKER) (test code = [facility] [place] [facility] 1538) 68206 POCT-GLUCOSE [id number] 06:38:00 Test Item Value Reference Range Interpretation Comments POC-GLUCOSE METER 247 mg/dL 70-110 H TESTED AT [place] [address] (BEAKER) (test code = [facility] [place] [facility] 1538) [address] BASIC METABOLIC [id number] 06:01:00 Test Item Value Reference Range Interpretation [...] 0-0 (BEAKER) (test code = 413) POCT-GLUCOSE [id number] 02:35:00 Test Item Value Reference Range Interpretation Comments POC-GLUCOSE METER 220 mg/dL 70-110 H TESTED AT [place] [address] ([facility]) (test code = [facility] 1538) [id number] POCT-GLUCOSE [id number] 16:55:00 Test Item Value Reference Range Interpretation Comments POC-GLUCOSE METER 239 mg/dL 70-110 H TESTED AT [place] [address] ([facility]) (test code = [facility] 1538) 543[address] POCT-GLUCOSE [id number] 12:09:00 Test Item Value Reference Range Interpretation Comments POC-GLUCOSE METER 246 mg/dL 70-110 H TESTED AT [place] [address] ([facility]) (test code = [facility] 1538) [address] BASIC METABOLIC [id number] 05:52:00 Test Item Value Reference Range Interpretation [...] NOT APPLICABLE FOR DIALYSIS PATIEN TS. POCT-GLUCOSE [id number] 05:37:00 Test Item Value Reference Range Interpretation Comments POC-GLUCOSE METER 181 mg/dL 70-110 H TESTED AT [facility] 6720 ([facility]) (test code = K[place]I [place] 1538) [address] CBC (HEMOGRAM ONLY)2018-11-14 05:37:00 Test Item Value [...] 150-450 code = 756) MEAN PLATELET VOLUME ([facility]) 10.5 fL 9.4-12.4 (test code = 754) NUCLEATED RED BLOOD CELLS 0 /100 WBC 0-0 ([facility]) (test code = 413) POCT-GLUCOSE [id number] 00:10:00 Test Item Value Reference Range Interpretation Comments POC-GLUCOSE METER 225 mg/dL 70-110 H TESTED AT [facility] 6720 ([facility]) (test code = KWASI Row[place] 1538) [address] POCT-GLUCOSE [id number] 17:58:00 Test Item Value Reference Range Interpretation Comments POC-GLUCOSE METER 221 mg/dL 70-110 H TESTED AT [facility] 6720 ([facility]) (test code = KWASI Rowe [facility] 1538) [address] CT, SPINE, CERVICAL, WO [id number] 15:33:00FINAL REPORT EXAM: CERVICAL SPINE CT WITHOUT [...] MDReport Verified Date/Time: 11/13/2018 15:33:48 Reading Location: [facility] Radiology Reading Room CT, BRAIN, WITHOUT [id number] 15:22:00FINAL REPORT CT head without contrast. Reason [...] increased amount of petechial hemorrhage. Signed: Bethany Parkre Verified Date/Time: 11/13/2018 15:22:34 Reading Location: [address] Consult Reading Room -GLUCOSE [id number] 12:10:00 Test Item Value Reference Range Interpretation Comments POC-GLUCOSE METER 218 mg/dL 70-110 H TESTED AT [facility] 6720 ([facility]) (test code = KWASI Rowe [facility] 1538) [address]87 BASIC METABOLIC [id number] 08:05:00 Test Item Value Reference Range Interpretation [...] PATIEN TS. CBC W/PLT COUNT & AUTO [id number] 08:02:00 Test Item Value Reference Range Interpretation [...] 0-1 PERCENT (BEAKER) (test code = 2801) POCT-GLUCOSE [id number] 05:35:00 Test Item Value Reference Range Interpretation Comments POC-GLUCOSE METER 190 mg/dL 70-110 H TESTED AT [facility] 6720 ([facility]) (test code = [facility] [employer] [facility] 1538) 26295 POCT-GLUCOSE [id number] 00:25:00 Test Item Value Reference Range Interpretation Comments POC-GLUCOSE METER 193 mg/dL 70-110 H TESTED AT [facility] 67 ([facility]) (test code = [employer] [facility] 1538) 03183 POCT-GLUCOSE [id number] 18:09:00 Test Item Value Reference Range Interpretation Comments POC-GLUCOSE METER 204 mg/dL 70-110 H TESTED AT [facility] 67 ([facility]) (test code = [facility] [employer] [facility] 1538) [address] CORDELIA, CAROTID STENT W [id number] 14:42:00Reason for exam:->R carotid stent for carotid stenosisFINAL REPORT DATE OF PROCEDURE: 11/07/2018 SURGEON: Garrett Echevarria M.D. BUSINESS DEVELOPMENT COORDINATOR: Lon Lopez MD PREOPERATIVE DIAGNOSIS: Right hemispheric stroke with severe right carotid artery stenosis POST OPERATIVE DIAGNOSIS: Right hemispheric stroke with severe right carotid artery stenosis OPERATION: 1) Cerebral Angiogram2) right carotid stent IMPLANTS: Precise Pro Stent 8f38Rigk stent 8-6 x 40 ANESTHESIA: Moderate sedation [...] dilation was performed and then a 9 Iranian short sheath was placed in the right common femoral artery and placed on heparinized flush. Angiography was performed via the sheath confirmed satisfactory placement. A 5 Iranian diagnostic glide catheter was then used to [...] MDReport Verified Date/Time: 11/12/2018 14:42:01 Reading Location: [facility] Y026 Neuro Angio Reading Room Electronically signed by: GARRETT ECHEVARRIA MD on 0 11/12/2018 02:42 PMNV, ANGIOGRAM, [id number] 14:41:00Reason for exam:- >right ICA stenosisFINAL REPORT DATE OF PROCEDURE: November 05, 2018 SURGEON: Garrett Echevarria M.D. BUSINESS DEVELOPMENT COORDINATOR: Lon Lopez MD PREOPERATIVE DIAGNOSIS: Right carotid [...] referred for diagnostic angiogram for further evaluation. RI OCEDURE: Following explanation of the benefits, risks [...] removed and hemostasis was achieved with a 6-Iranian AngioSeal closure device. The patient tolerated the [...] LATERAL, OBLIQUE - HEAD) There is spontaneous core microarchitect ssfilling across the anterior communicating artery with [...] immediate technical or clinical complications.Signed: Garrett Echevarria Verified Date/Time: 11/12/2018 14:41:58 Reading Location: [facility] Y026 Neuro Angio Reading Room POCT-GLUCOSE METER 2018-11-12 12:37:00 Test Item Value Reference Range Interpretation Comments POC-GLUCOSE METER 157 mg/dL 70-110 H TESTED AT [place] [address] ([facility]) (test code = KLARISSAMALCOLM Rowe [facility] 1538) [id number] POCT-GLUCOSE [id number] 06:41:00 Test Item Value Reference Range Interpretation Comments POC-GLUCOSE METER 176 mg/dL 70-110 H TESTED AT [place] [address] ([facility]) (test code = KLARISSAWA [place] [facility] 1538) [address] BASIC METABOLIC [id number] 06:30:00 Test Item Value Reference Range Interpretation Comments SODIUM ([facility]) 133 meq/L 136-145 L (test code = 381) POTASSIUM ([facility]) 4.3 meq/L 3.5-5.1 (test code = 379) [...] 0-0 (BEAKER) (test code = 413) POCT-GLUCOSE [id number] 00:14:00 Test Item Value Reference Range Interpretation Comments POC-GLUCOSE METER 199 mg/dL 70-110 H TESTED AT [place] [address] [facility] (test code = KWASI Row[place] 1538) [address] POCT-GLUCOSE [id number] 17:13:00 Test Item Value Reference Range Interpretation Comments POC-GLUCOSE METER 221 mg/dL 70-110 H TESTED AT [place] [address] [facility] (test code = KWASI Row[place] 1538) [address] POCT-GLUCOSE [id number] 12:47:00 Test Item Value Reference Range Interpretation Comments POC-GLUCOSE METER 184 mg/dL 70-110 H TESTED AT [place] [address] [facility] (test code = KLARISSAWA [place] [facility] 1538) 28885 BASIC METABOLIC [id number] 06:22:00 Test Item Value Reference Range Interpretation [...] NOT APPLICABLE FOR DIALYSIS PATIEN TS. POCT-GLUCOSE [id number] 06:07:00 Test Item Value Reference Range Interpretation Comments POC-GLUCOSE METER 183 mg/dL 70-110 H TESTED AT [place] [address] [facility] (test code = K[place]I Row[place] 1538) 15216 CBC (HEMOGRAM ONLY)2018-11-11 05:13:00 Test Item Value [...] 0-0 (BEAKER) (test code = 413) POCT-GLUCOSE [id number] 00:14:00 Test Item Value Reference Range Interpretation Comments POC-GLUCOSE METER 176 mg/dL 70-110 H TESTED AT [place] [address] ([facility]) (test code = [place] 1538) [address] POCT-GLUCOSE [id number] 17:43:00 Test Item Value Reference Range Interpretation Comments POC-GLUCOSE METER 195 mg/dL 70-110 H TESTED AT [place] [address] ([facility]) (test code = [place] 1538) 8[address] POCT-GLUCOSE [id number] 12:08:00 Test Item Value Reference Range Interpretation Comments POC-GLUCOSE METER 170 mg/dL 70-110 H TESTED AT [place] [address] ([facility]) (test code = [place] 1538) [address] BASIC METABOLIC [id number] 07:13:00 Test Item Value Reference Range Interpretation [...] NOT APPLICABLE FOR DIALYSIS PATIEN TS. POCT-GLUCOSE [id number] 06:08:00 Test Item Value Reference Range Interpretation Comments POC-GLUCOSE METER 178 mg/dL 70-110 H TESTED AT [facility] 6720 (BEAKER) (test code = [place] 1538) [address] CBC (HEMOGRAM ONLY)2018 05:55:00 Test Item Value [...] 0-0 (BEAKER) (test code = 413) POCT-GLUCOSE [id number] 01:11:00 Test Item Value Reference Range Interpretation Comments POC-GLUCOSE METER 160 mg/dL 70-110 H TESTED AT [place] [address] ([facility]) (test code = [facility] 1538) 53075 POCT-GLUCOSE [id number] 12:18:00 Test Item Value Reference Range Interpretation Comments POC-GLUCOSE METER 147 mg/dL 70-110 H TESTED AT [place] [address] ([facility]) (test code = [facility] 1538) 04405 POCT-GLUCOSE [id number] 08:20:00 Test Item Value Reference Range Interpretation Comments POC-GLUCOSE METER 155 mg/dL 70-110 H TESTED AT [place] [address] ([facility]) (test code = [facility] 1538) [address] BASIC METABOLIC [id number] 06:07:00 Test Item Value Reference Range Interpretation [...] 0-0 (BEAKER) (test code = 413) POCT-GLUCOSE [id number] 23:57:00 Test Item Value Reference Range Interpretation Comments POC-GLUCOSE METER 140 mg/dL 70-110 H TESTED AT [place] [address] ([facility]) (test code = [place] 1538) [address] POCT-GLUCOSE [id number] 17:30:00 Test Item Value Reference Range Interpretation Comments POC-GLUCOSE METER 127 mg/dL 70-110 H TESTED AT [place] [address] ([facility]) (test code = [place] 1538) [address] POCT-GLUCOSE [id number] 11:54:00 Test Item Value Reference Range Interpretation Comments POC-GLUCOSE METER 133 mg/dL 70-110 H TESTED AT [place] [address] ([facility]) (test code = [place] 1538) 63148 POCT-GLUCOSE [id number] 06:37:00 Test Item Value Reference Range Interpretation Comments POC-GLUCOSE METER 110 mg/dL 70-110 TESTED AT [facility] 6720 (BEAKER) (test code = [place] 1538) 25254 BASIC METABOLIC [id number] 06:28:00 Test Item Value Reference Range Interpretation [...] CELL DISTRIBUTION WIDTH 14.6 % 11.6-14.4 H ([facility]) (test code = 412) PLATELET COUNT ([facility]) (test 256 K/CU MM 150-450 code = 756) MEAN PLATELET VOLUME ([facility]) 10.4 fL 9.4-12.4 (test code = 754) NUCLEATED RED BLOOD CELLS 0 /100 WBC 0-0 ([facility]) (test code = 413) POCT-GLUCOSE [id number] 01:21:00 Test Item Value Reference Range Interpretation Comments POC-GLUCOSE METER 131 mg/dL 70-110 H TESTED AT [place] [address] ([facility]) (test code = [place] 1538) [id number] POCT-GLUCOSE [id number] 18:16:00 Test Item Value Reference Range Interpretation Comments POC-GLUCOSE METER 159 mg/dL 70-110 H TESTED AT [place] [address] ([facility]) (test code = [place] 1538) [id number] 15:58:00 Test Item Value Reference Range Interpretation Comments ACTIVATED CLOTTING TIME 252 sec TEST ED AT [place] [address] ([facility]) (test code = [place] 441) [id number] POCT-GLUCOSE [id number] 13:49:00 Test Item Value Reference Range Interpretation Comments POC-GLUCOSE METER 155 mg/dL 70-110 H TESTED AT [place] [address] ([facility]) (test code = KWASI Rowe [place] 1538) [id number] POCT-P2Y12 PLATELET [id number] 12:44:00 Test Item Value Reference Range Interpretation Comments POC-P2Y12 PLATELET AGG ([facility]) (test 83 PRU code = 2303) RANGE INFORMATION: PRU reference range is 194-418. Post Drug Results: Lower PRU levels are associated with expected antiplatelet effect. Values may be below the stated reference range above. The post-drug PRU values reported in the VerifyNow P2Y12 package insert are [id number].CT, BRAIN, WITHOUT [id number] 09:26:[address], BRAIN, WITHOUT CONTRAST [...] MDReport Verified Date/Time: 11/07/2018 09:26:55 Reading Location: [facility] C0[facility] Neuro Reading Room POCT-GLUCOSE [id number] 06:41:00 Test Item Value Reference Range Interpretation Comments POC-GLUCOSE METER 186 mg/dL 70-110 H TESTED AT [facility] 6720 ([facility]) (test code = KWASI Rowe [facility] 1538) [address] POCT-P2Y12 PLATELET [id number] 06:16:00 Test Item Value Reference Range Interpretation Comments POC-P2Y12 PLATELET AGG ([facility]) (test 247 PRU code = 2303) RANGE INFORMATION: PRU reference range is 194-418. Post Drug Results: Lower PRU levels are associated with expected antiplatelet effect. Values may be below the stated reference range above. The post-drug PRU values reported in the VerifyNow P2Y12 package insert are [id number].BASIC METABOLIC [id number] 06:01:00 Test Item Value Reference Range Interpretation [...] 0-0 (BEAKER) (test code = 413) POCT-GLUCOSE [id number] 23:34:00 Test Item Value Reference Range Interpretation Comments POC-GLUCOSE METER 173 mg/dL 70-110 H TESTED AT [place] [address] ([facility]) (test code = KWASI Rowe [facility] 1538) [address] RAD, ABDOMEN/KUB, 1 VIEW [id number] 19:42:00Reason for exam:->verify corpak placementShould this be [...] MDReport Verified Date/Time: 11/06/2018 19:42:40 Reading Location: [address] Reading Room POCT-GLUCOSE [id number] 18:59:00 Test Item Value Reference Range Interpretation Comments POC-GLUCOSE METER 143 mg/dL 70-110 H TESTED AT [place] [address] ([facility]) (test code = KWASI Rowe [facility] 1538) [address] POCT-GLUCOSE [id number] 14:46:00 Test Item Value Reference Range Interpretation Comments POC-GLUCOSE METER 169 mg/dL 70-110 H TESTED AT [place] [address] ([facility]) (test code = KWASI Rowe [facility] 1538) [address] FL, ESOPH, SWALLOW FUNCTION, WITH CINE OR [id number] 14:10:00Reason for exam:->dysphagiaFINAL REPORT Modified barium swallow [...] Veri fied Date/Time: 11/06/2018 14:10:54 Reading Location: [facility] C013X Ortho Consult Reading Room C METABOLIC [id number] 06:28:00 Test Item Value Reference Range Interpretation [...] NOT APPLICABLE FOR DIALYSIS PATIEN TS. POCT-GLUCOSE [id number] 06:19:00 Test Item Value Reference Range Interpretation Comments POC-GLUCOSE METER 216 mg/dL 70-110 H TESTED AT [facility] 6720 (BEAKER) (test code = KWASI Rowe [facility] 1538) [id number] CBC (HEMOGRAM ONLY)2018-11-06 05:54:00 Test Item Value [...] code = 412) PLATELET COUNT (AKER) (test 215 K/CU MM 150-450 code = 756) MEAN PLATELET VOLUME (BEAKER) 10.7 fL 9.4-12.4 (test code = 754) NUCLEATED RED BLOOD CELLS 0 /100 WBC 0-0 (AKER) (test code = 413) POCT-GLUCOSE [id number] 01:34:00 Test Item Value Reference Range Interpretation Comments POC-GLUCOSE METER 175 mg/dL 70-110 H TESTED AT [place] [address] ([facility]) (test code = [place] 1538) [address] POCT-GLUCOSE [id number] 19:12:00 Test Item Value Reference Range Interpretation Comments POC-GLUCOSE METER 150 mg/dL 70-110 H TESTED AT [place] [address] ([facility]) (test code = [place] 1538) [address] POCT-GLUCOSE [id number] 11:28:00 Test Item Value Reference Range Interpretation Comments POC-GLUCOSE METER 169 mg/dL 70-110 H TESTED AT [place] [address] ([facility]) (test code = [place] 1538) [address] BASIC METABOLIC [id number] 07:23:00 Test Item Value Reference Range Interpretation [...] NOT APPLICABLE FOR DIALYSIS PATIEN TS. POCT-GLUCOSE [id number] 06:37:00 Test Item Value Reference Range Interpretation Comments POC-GLUCOSE METER 158 mg/dL 70-110 H TESTED AT [facility] 6720 (AKER) (test code = [place] 1538) [address] [id number] 05:42:00 Test Item Value Reference Range Interpretation [...] 0-0 (BEAKER) (test code = 413) POCT-GLUCOSE [id number] 23:19:00 Test Item Value Reference Range Interpretation Comments POC-GLUCOSE METER 231 mg/dL 70-110 H TESTED AT [place] [address] ([facility]) (test code = KWASI Rowe [facility] 1538) [address] POCT-GLUCOSE [id number] 18:05:00 Test Item Value Reference Range Interpretation Comments POC-GLUCOSE METER 245 mg/dL 70-110 H TESTED AT [place] [address] ([facility]) (test code = [employer] [facility]e [facility] 1538) [address] POCT-GLUCOSE [id number] 12:49:00 Test Item Value Reference Range Interpretation Comments POC-GLUCOSE METER 197 mg/dL 70-110 H TESTED AT [place] [address] ([facility]) (test code = [facility] 1538) [id number] BASIC METABOLIC [id number] 09:31:00 Test Item Value Reference Range Interpretation [...] 0-0 (BEAKER) (test code = 413) POCT-GLUCOSE [id number] 23:44:00 Test Item Value Reference Range Interpretation Comments POC-GLUCOSE METER 187 mg/dL 70-110 H TESTED AT [place] [address] ([facility]) (test code = KWASI Rowe [place] 1538) [id number] POCT-GLUCOSE [id number] 17:30:00 Test Item Value Reference Range Interpretation Comments POC-GLUCOSE METER 231 mg/dL 70-110 H TESTED AT [place] [address] ([facility]) (test code = KWASI Rowe [place] 1538) [address] POCT-GLUCOSE [id number] 12:40:00 Test Item Value Reference Range Interpretation Comments POC-GLUCOSE METER 205 mg/dL 70-110 H TESTED AT [place] [address] ([facility]) (test code = KWASI Rowe [facility] 1538) [address] BASIC METABOLIC [id number] 08:48:00 Test Item Value Reference Range Interpretation [...] NOT APPLICABLE FOR DIALYSIS PATIEN TS. POCT-GLUCOSE [id number] 06:30:00 Test Item Value Reference Range Interpretation Comments POC-GLUCOSE METER 153 mg/dL 70-110 H TESTED AT [place] [address] ([facility]) (test code = [facility] 1538) [address] CBC (HEMOGRAM ONLY)2018-11-03 05:19:00 Test Item Value [...] MEAN CORPUSCULAR HEMOGLOBIN CONC 32.7 GM/DL 32.3-36.5 ([facility]) (test code = 752) RED CELL DISTRIBUTION WIDTH 14.8 % 11.6-14.4 H ([facility]) (test code = 412) PLATELET COUNT ([facility]) (test 175 K/CU MM 150-450 code = 756) MEAN PLATELET VOLUME ([facility]) 11.3 fL 9.4-12.4 (test code = 754) NUCLEATED RED BLOOD CELLS 0 /100 WBC 0-0 ([facility]) (test code = 413) POCT-GLUCOSE [id number] 23:20:00 Test Item Value Reference Range Interpretation Comments POC-GLUCOSE METER 133 mg/dL 70-110 H TESTED AT [place] [address] ([facility]) (test code = KWASI Rowe [facility] 1538) [id number] POCT-GLUCOSE [id number] 17:27:00 Test Item Value Reference Range Interpretation Comments POC-GLUCOSE METER 107 mg/dL 70-110 TESTED AT [place] [address] ([facility]) (test code = KWASI Rowe [facility] 1538) [address] POCT-GLUCOSE [id number] 09:07:00 Test Item Value Reference Range Interpretation Comments POC-GLUCOSE METER 101 mg/dL 70-110 TESTED AT [place] [address] ([facility]) (test code = KWASI Rowe [facility] 1538) [address] TROPONIN [id number] 07:02:00 Test Item Value Reference Range Interpretation Comments TROPONIN I ([facility]) (test code = 0.04 ng/mL 0.00-0.03 H [...] acute neurological disease, and persistent tachyarrhythmia.BASIC METABOLIC [id number] 06:55:00 Test Item Value Reference Range Interpretation Comments SODIUM (AKER) 142 meq/L 136-145 (test code = 381) POTASSIUM (AKER) 3.7 meq/L 3.5-5.1 (test code = 379) [...] 0-100 H (test code = 700) PROTHROMBIN [id number] 06:35:00 Test Item Value Reference Range Interpretation [...] CELL DISTRIBUTION WIDTH 15.2 % 11.6-14.4 H (AKER) (test code = 412) PLATELET COUNT ([facility]) (test 161 K/CU MM 150-450 code = 756) MEAN PLATELET VOLUME (AKER) 11.4 fL 9.4-12.4 (test code = 754) NUCLEATED RED BLOOD CELLS 0 /100 WBC 0-0 ([facility]) (test code = 413) POCT-GLUCOSE [id number] 05:55:00 Test Item Value Reference Range Interpretation Comments POC-GLUCOSE METER 114 mg/dL 70-110 H TESTED AT [place] [address] ([facility]) (test code = KWASI Rowe [facility] 1538) [address] POCT-GLUCOSE [id number] 23:27:00 Test Item Value Reference Range Interpretation Comments POC-GLUCOSE METER 133 mg/dL 70-110 H TESTED AT [place] [address] ([facility]) (test code = KWASI Rowe [place] 1538) [address] RAD, ABDOMEN/KUB, 1 VIEW [id number] 18:35:00Reason for exam:->To check NG TUbe positionFINAL REPORT INDICATION:Confirm feeding tube placement. TECHNIQUE: Abdomen radiograph one view. FINDINGS / IMPRESSION:There is a feeding tube that follows the course of the stomachwith the tip projecting over the gastric antrum. Visualized bowel gas pattern is unremarkable. Osseous structures unremarkable. Signed: Bora Hawk MDReport Verified Date/Time: 11/01/2018 18:35:02Reading Location: [address] Consult Reading Room -GLUCOSE [id number] 17:52:00 Test Item Value Reference Range Interpretation Comments POC-GLUCOSE METER 134 mg/dL 70-110 H TESTED AT [place] [address] ([facility]) (test code = [place] 1538) [id number] POCT-GLUCOSE [id number] 15:42:00 Test Item Value Reference Range Interpretation Comments POC-GLUCOSE METER 135 mg/dL 70-110 H TESTED AT [facility] 6720 (BEAKER) (test code = [place] 1538) [address] [id number] 06:25:00 Test Item Value Reference Range Interpretation Comments MAGNESIUM (BEAKER) (test code = 2.3 mg/dL 1.6-2.6 627) COMPREHENSIVE METABOLIC [id number] 06:25:00 Test Item Value Reference Range Interpretation [...] PATIEN TS. CBC W/PLT COUNT & AUTO [id number] 06:11:00 Test Item Value Reference Range Interpretation [...] 417) IMMATURE GRANULOCYTES-RELATIVE 0 % 0-1 PERCENT (EDWIN) (test code = 2801) CT, BRAIN, WITHOUT [id number] 05:58:00FINAL REPORT EXAM: CT head without contrast. [...] MDReport Verified Date/Time: 11/01/2018 05:58:05 Reading Location: [facility] Body Reading Room POCT-GLUCOSE [id number] 23:14:00 Test Item Value Reference Range Interpretation Comments POC-GLUCOSE METER 165 mg/dL 70-110 H TESTED AT [facility] 6720 (EDWIN) (test code = KWASI [place]CK[place] 1538) [address] CT, CTANGIO [id number] 18:44:00FINAL REPORT CT, CTANGIO BRAIN, CT, CAROTID, [...] carotid artery is widely patent extracranially. Nonvascular findings:Tavv-kc-phewbhdu degenerative changes are present in the cervical [...] MDReport Verified Date/Time: 10/31/2018 18:44:42 Reading Location: [facility] C013V NeuroReading Room CT, CAROTID, [id number] 18:44:00FINAL REPORT CT, CTANGIO BRAIN, CT, CAROTID, [...] carotid artery is widely patent extracranially. Nonvascular findings:Alqd-ce-vbvuxkmj degenerative changes are present in the cervical [...] middle branches. Signed: Edgard white JR, Robert [facility] Verified Date/Time: 10/31/2018 18:44:42 Reading Location: [address] NeuroReading Room [id number] 14:17:00 Test Item Value Reference Range Interpretation Comments RPR SCREEN (BEAKER) (test code = Nonreactive Nonreactive 420) CBC W/PLT COUNT & AUTO [id number] 12:54:00 Test Item Value Reference Range Interpretation [...] PLATELET CONCENTRATION Adequate (CELLAVISION)(BEAKER) (test code = 3437) Received comment: User comments: Slide comments:HEMOGLOBIN [id number] 11:05:00 Test Item Value Reference Range Interpretation Comments HEMOGLOBIN A1C (BEAKER) (test code = 8.4 % 4.3-6.1 H 368) VITAMIN [id number] 07:43:00 Test Item Value Reference Range Interpretation Comments VITAMIN B12 (BEAKER) (test code = 595 pg/mL 213-816 774) TROPONIN [id number] 07:21:00 Test Item Value Reference Range Interpretation [...] acidosis, acute neurological disease, and persistent tachyarrhythmia.C-REACTIVE [id number] 07:16:00 Test Item Value Reference Range Interpretation Comments C-REACTIVE PROTEIN (BEAKER) (test 4.19 mg/dL 0.00-0.50 H code = 676) TSH/FREE T4 IF [id number] 06:15:00 Test Item Value Reference Range Interpretation Comments THYROID STIMULATING HORMONE 2.46 uIU/mL 0.35-4.94 (BEAKER) (test code = 772) [id number] 05:54:00 Test Item Value Reference Range Interpretation [...] 2.5-3.5 for patients with mechanical heart valves.LIPID [id number] 05:51:00 Test Item Value Reference Range Interpretation [...] 130-159 High 160-189 Very High >=190COMPREHENSIVE METABOLIC [id number] 05:51:00 Test Item Value Reference Range Interpretation [...]
[2022-12-06] MEDS ORDERED: LIDOCAINE 2% W/EPI 1:200,000 MPF 20 ML VIAL IM ONE (04:08)
[2022-12-06 05:14] LABS: Absolute Lymphocytes (CBC) 2.5 K/uL (0.7-4.9); Hematocrit 29.2 % (39.6-49.0); Lymphocytes % 30.2 % (15.3-44.8); MCV 81.6 fL (80-100); RBC Red Blood Cell Count 3.57 M/uL (4.33-5.43)
[2022-12-06 05:22] LABS: Potassium 5.1 mEq/L (3.5-5.1)
[2022-12-06 06:38] LABS: Protime INR 0.9
--- NOTE | 2022-12-06 07:21 | EDPHYS ---
Physician Documentation [facility] Name: Zain Hope Age: 72 yrs Sex: Male : 1950 Arrival Date: 12/06/2022 Time: 03:23 Bed 15 Private MD: ED Physician Sea Jimenez HPI: 12/06 07:08 This 72 yrs old Male presents to ER via EMS with complaints of bleeding gums . sp4 07:08 72-year-old male jail resident presents with acute bleeding from the right sp4 upper gingiva at the site of a dental extraction. Patient underwent dental extraction of the tooth #3 on 12/03/2022 by the local dentist. This morning patient has developed acute moderate bleeding from the dental extraction site in the jail and was brought here by EMS. Patient has moderate dementia and not able to provide any history. Past medical history includes left shoulder contractures, history of CVA, history of immobility, generalized muscle weakness, coronary artery disease patient was not on daily Brilinta 90 mg twice daily additional history includes cognitive decline, dysphagia, chronic ischemic heart disease, chronic kidney disease stage III, epileptic seizures, hemiplegia hemiparesis secondary to prior CVA, type 2 diabetes mellitus, hypothyroidism, hyperlipidemia, major depressive disorder, hypertension, and GERD. . Historical: - Allergies: 03:28 No Known Allergies; as6 - PMHx: 03:28 CAD; CVA; Depression; Diabetes - NIDDM; DYSPHAGIA; GERD; Hyperlipidemia; Hypertension; as6 Hypothyroidism; 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 - Social history:: Smoking status: Patient/guardian denies using tobacco. - Family history:: not pertinent. ROS: 07:08 Constitutional: Negative for fever, chills, and weight loss, Eyes: Negative for injury, sp4 pain, redness, and discharge, ENT: Negative for injury, pain, and discharge, positive for recent dental extraction tooth #3, positive for moderate bleeding from the dental extraction site. Neck: Negative for injury, pain, and swelling, Cardiovascular: Negative for chest pain, palpitations, and edema, Respiratory: Negative for shortness of breath, cough, wheezing, and pleuritic chest pain, Abdomen/GI: Negative for abdominal pain, nausea, vomiting, diarrhea, and constipation, Back: Negative for injury and pain, : Negative for injury, bleeding, discharge, and swelling, MS/Extremity: Negative for injury and deformity, Skin: Negative for injury, rash, and discoloration, Neuro: Negative for headache, weakness, numbness, tingling, and seizure, Allergy/Immunology: Negative for hives, rash, and allergies Endocrine: Negative for neck swelling, polydipsia, polyuria, polyphagia, and weight changes Hematologic/Lymphatic: Negative for swollen nodes, abnormal bleeding, and unusual bruising 07:08 All other systems are negative. sp4 Exam: 07:08 Constitutional: This is a well developed, well nourished patient elderly sp4 debilitated male, chronic ill appearance, nontoxic-appearing male, nonambulatory, moderate dementia on exam. Head/Face: Normocephalic, atraumatic. Eyes: Pupils equal round and reactive to light, extra-ocular motions intact. Lids and lashes normal. Conjunctiva and sclera are not injected. Cornea within normal limits. Periorbital areas with no swelling, redness, or edema. ENT: Nares patent. No nasal discharge, no septal abnormalities noted. Tympanic membranes are normal and external auditory canals are clear. Right upper gingiva tooth #3 dental extraction site with active bleeding just posterior to the extraction site from possibly a small arteriole patient has a rag in the mouth to attempt to control the bleeding but the bleeding is not being. Neck: Trachea midline, no thyromegaly or masses palpated, and no cervical lymphadenopathy. Supple, full range of motion without nuchal rigidity, or vertebral point tenderness. No Meningismus. Chest/axilla: Normal chest wall appearance and motion. Nontender with no deformity. No lesions are appreciated. Cardiovascular: Regular rate and rhythm with a normal S1 and S2. No gallops, murmurs, or rubs. Normal PMI, no JVD. No pulse deficits. Respiratory: Lungs have equal breath sounds bilaterally, clear to auscultation and percussion. No rales, rhonchi or wheezes noted. No increased work of breathing, no retractions or nasal flaring. Abdomen/GI: Soft, non-tender, with normal bowel sounds. No distension or tympany. No guarding or rebound. No evidence of tenderness throughout. Back: No spinal tenderness. No costovertebral tenderness. Skin: Warm, dry with normal turgor. Normal color with no rashes, no lesions, and no evidence of cellulitis. MS/ Extremity: Pulses equal, no cyanosis. Neurovascular intact. Full, normal range of motion. Neuro: Awake and alert, GCS 15, oriented to person, place, time, and situation. Cranial nerves II-XII grossly intact. Motor strength 5/5 in all extremities. Sensory grossly intact. Vital Signs: 03:29 BP 179 / 87; Pulse 80; Resp 18 S; Temp 98.1(O); Pulse Ox 100% on R/A; Weight 68.04 kg; as6 05:11 BP 182 / 88; Pulse 66; Resp 18 S; Pulse Ox 100% on R/A; as6 06:00 BP 160 / 88; Pulse 58; Resp 18 S; Pulse Ox 100% on R/A; as6 06:48 BP 175 / 80; Pulse 61; Resp 16 S; Pulse Ox 100% on R/A; as6 Procedures: 07:08 Performed Management of oral/gingival bleeding. . Right upper gingival dental sp4 extraction site active bleeding that is moderate, possibly from small arteriole. Patient's gingiva was anesthetized with lidocaine with epinephrine and patient was suctioned. Compression and epinephrine would not stop the bleeding, but the bleeding did improve. Hot cautery was used to attempt to cauterize bleeding blood vessel. The bleeding did not subside. Silk suture was used to put through the gingiva soft tissue to attempt to stop the bleeding and it has improved to some extent but the bleeding persists. The extent of bleeding did improve and the remaining bleeding is controlled with pressure. Soon as the gauze taken away the bleeding continues at this time patient warrants transfer for OMFS attention and further measures to stop the bleed. . MDM: 04:13 Patient medically screened. sp4 07:08 Differential diagnosis: vascular injury, Bleeding from dental extraction site. Data sp4 reviewed: vital signs, EMS record, jail records, old medical records, lab test result(s), CBC, electrolytes, hepatic panel. Consideration of Admission/Observation Escalation of care including admission/observation considered. Management of patient was discussed with the following: Sweatband Separator: OMFS attending physician at [facility]. ED course: There is persistent bleeding from the dental extraction site and patient is on Brilinta twice a day. Patient was discussed with OMFS attending MD at the [facility] and accepted for transfer. Will ask patient to continue to compress bleeding site with the gauze to control the bleeding until he can arrive to [facility]. . 12/06 04:13 Order name: PT-INR; Complete Time: 06:47 sp4 12/06 05:05 Order name: Basic Metabolic Panel; Complete Time: 06:22 EDMS 12/06 05:05 Order name: CBC with Automated Diff; Complete Time: 06:22 EDMS 12/06 06:22 Order name: Troponin High Sensitivity; Complete Time: 07:08 sp4 12/06 04:13 Order name: IV Saline Lock; Complete Time: 04:45 sp4 12/06 04:13 Order name: Labs collected and sent; Complete Time: 04:45 sp4 12/06 04:13 Order name: O2 Per Protocol; Complete Time: 04:13 sp4 12/06 04:13 Order name: O2 Sat Monitoring; Complete Time: 04:13 sp4 Administered Medications: 04:12 Drug: Lidocaine-Epinephrine Infiltration -1%: (1:100,000) 20 ml {Note: administered by as6 provider .} Volume: 20 ml; Route: Infiltration; Disposition Summary: 12/06/22 07:21 Transfer Ordered Transfer Location: [facility] sp4 Reason: Higher level of care sp4 Condition: Stable sp4 Problem: new sp4 Symptoms: have improved sp4 Accepting Physician: [facility] OMFS Attending (12/06/22 08:37) ko1 Diagnosis - Hemorrhage from the dental extraction site, coagulopathy, on chronic anticoagulationsp4 Discharge Instructions: - Discharge Summary Sheet rv1 Forms: - SBAR form rv1 - Medication Reconciliation Form sp4 Signatures: Dispatcher [employer] Alexi Fatima RN RN as6 Domenica Morris RN RN ko1 Sea Jimenez MD MD sp4 Corrections: (The following items were deleted from the chart) 06:31 06:05 BASIC METABOLIC PANEL+C.LAB.BRZ ordered. EDMS EDMS 06:31 06:05 CBC+H.LAB.BRZ ordered. EDMS EDMS 08:37 07:21 [facility] OMFS Attending sp4 ko1
--- NOTE | 2022-12-06 07:21 | ER ---
Nurse's Notes [facility] [place] Name: Zain Hope Age: 72 yrs Sex: Male : 1950 Arrival Date: 12/06/2022 Time: 03:23 Bed 15 Private MD: Diagnosis: Hemorrhage from the dental extraction site, coagulopathy, on chronic anticoagulation Presentation: 12/06 03:29 Chief complaint: EMS states: pt had some teeth removed on 12/03 to the lower right side as6 and the long-term nurse noticed tonight that his mouth was bleeding. Coronavirus screen: At this time, the client does not indicate any symptoms associated with coronavirus-19. Ebola Screen: No symptoms or risks identified at this time. Initial Sepsis Screen: Does the patient meet any 2 criteria? No. Patient's initial sepsis screen is negative. Does the patient have a suspected source of infection? No. Patient's initial sepsis screen is negative. Risk Assessment: Do you want to hurt yourself or someone else? Patient reports no desire to harm self or others. Onset of symptoms was December 06, 2022. 03:29 Acuity: BRYANT 4 as6 03:29 Method Of Arrival: EMS: [facility] as6 Historical: - Allergies: 03:28 No Known Allergies; as6 - PMHx: 03:28 CAD; CVA; Depression; Diabetes - NIDDM; DYSPHAGIA; GERD; Hyperlipidemia; Hypertension; as6 Hypothyroidism; 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 - Social history:: Smoking status: Patient/guardian denies using tobacco. - Family history:: not pertinent. Screenin:33 [facility] ED Fall Risk Assessment (Adult) Score/Fall Risk Level 0 - 2 = Low Risk. Abuse as6 screen: Denies threats or abuse. Denies injuries from another. Nutritional screening: No deficits noted. Tuberculosis screening: No symptoms or risk factors identified. Assessment: 03:30 General: Appears in no apparent distress. Behavior is calm, cooperative. Pain: as6 Complains of pain in mouth. Neuro: Level of Consciousness is awake, alert, obeys commands, Oriented to person, place, time, situation. Cardiovascular: Capillary refill < 3 seconds Patient's skin is warm and dry. Respiratory: Respiratory effort is even, unlabored. EENT: Absence of teeth noted - upper right third molar (#1), upper right second molar (#2), upper right first molar (#3), upper right second bicuspid (#4), upper right first bicuspid (#5), upper right cuspid (#6), upper right lateral incisor (#7), upper right central incisor (#8), upper left central incisor (#9), upper left lateral incisor (#10), upper left cuspid (#11), upper left first bicuspid (#12), upper left second bicuspid (#13), upper left first molar (#14), upper left second molar (#15), upper left third molar (#16), lower left third molar (#17), lower left second molar (#18), lower left first molar (#19), lower left second bicuspid (#20), lower left first bicuspid (#21), lower left lateral incisor (#23), lower left central incisor (#24), lower right central incisor (#25), lower right lateral incisor (#26), lower right cuspid (#27), lower right first bicuspid (#28), lower right second bicuspid (#29), lower right first molar (#30), lower right second molar (#31) and lower right third molar (#32) bleeding gums. 05:10 General: attempted to call [place] to obtain where pt got teeth removed, no answer . as6 06:48 General: bleeding has slowed . as6 08:10 Reassessment: Patient appears in no apparent distress at this time. No changes from ko1 previously documented assessment. Patient and/or family updated on plan of care and expected duration. Pain level reassessed. Patient is alert, oriented x 3, equal unlabored respirations, skin warm/dry/pink. Vital Signs: 03:29 BP 179 / 87; Pulse 80; Resp 18 S; Temp 98.1(O); Pulse Ox 100% on R/A; Weight 68.04 kg; as6 05:11 BP 182 / 88; Pulse 66; Resp 18 S; Pulse Ox 100% on R/A; as6 06:00 BP 160 / 88; Pulse 58; Resp 18 S; Pulse Ox 100% on R/A; as6 06:48 BP 175 / 80; Pulse 61; Resp 16 S; Pulse Ox 100% on R/A; as6 ED Course: 03:28 Patient arrived in ED. as6 03:28 Arm band placed on. as6 03:33 Triage completed. as6 03:33 Placed in gown. Bed in low position. Call light in reach. Side rails up X2. as6 03:52 Sea Jimenez MD is Attending Physician. sp4 04:12 Alexi Espana, RN is Primary Nurse. as6 04:45 Inserted saline lock: 22 gauge in right antecubital area, using aseptic technique. as6 Blood collected. 06:34 Initiated transfer with [facility] with Tasneem Cartagena. rv1 06:[address] Petersen at [facility] ER. rv1 08:35 No provider procedures requiring assistance completed. Patient transferred, IV remains ko1 in place. Administered Medications: 04:12 Drug: Lidocaine-Epinephrine Infiltration -1%: (1:100,000) 20 ml {Note: administered by as6 provider .} Volume: 20 ml; Route: Infiltration; Medication: 03:33 VIS not applicable for this client. as6 Outcome: 07:21 ER care complete, transfer ordered by . sp4 08:35 Transferred by ground EMS [facility]. Transfer form completed. X-rays sent w/ ko1 patient. 08:35 Condition: stable 08:35 Instructed on the need for transfer, Demonstrated understanding of instructions. 08:37 Patient left the ED. ko1 Signatures: Alexi Espana RN RN as6 Domenica Morris RN RN ko1 Radha Ren rv1 Sea Jimenez MD MD sp4
[2022-12-06 08:56] VITALS: TEMP 98.1; O2SAT 100
[2022-12-06 09:13] VITALS: BP 175/80
== END 2022-12-06 08:37 | disposition short-term general hospital (02) ==
LOC: ER 03:23
DX: K91.840 Postprocedural hemorrhage of a digestive system organ or structure following a digestive system procedure (principal); Z79.01 Long term (current) use of anticoagulants; I10 Essential (primary) hypertension; E11.9 Type 2 diabetes mellitus without complications
CPT/HCPCS: 36415; 80048; 84484; 85025; 85610; 99285

== ENCOUNTER 2023-03-01 23:37 | Emergency (ER) | payer OTHER ==
--- OUTSIDE RECORDS SUMMARY | 2023-03-01 23:42 | XMS REPORT | Continuity of Care Document ---
:1950 Author Organization [facility] t Address [address] [place] [address] Care Team Providers Name Role Phone PCP, PATIENT DOES NOT HAVE A Primary Care Physician Unavaila ble Doctor Unassigned, [place] Attending Clinician Unavailable ROHIT PETERSEN Attending Clinician Unavailable Rohit Petersen DDS Attending Clinician SUHAIL SMITH Attending Clinician Unavailable ROHIT PETERSEN Admitting Clinician Unavailable Rohit Petersen DDS Admitting Clinician SUHAIL SMITH Admitting Clinician Unavailable Payers Payer Name Policy Type Policy Number Effective Date Expiration Date S ource Problems Condition Condition Condition Status Onset Resolution Last Treating Co mments Source Name Details Category Date Date Treatment Clinician Date Stenosis Stenosis Disease Recurre [facility] carotid carotid 00:00: Medical artery artery 00 Center History of History of Disease Recur[facility] right right nce 4-[address] [facility] common common 00:00: Medical carotid carotid 00 Center artery artery stent stent placement placement Essential Essential Disease Recurre [facility] hypertensi hypertensi nce 4-11 Joi kes on on 00:00: Medical 00 [place] Acute Acute Disease Recurre [facility] ischemic ischemic nce 03 [facility] stroke stroke 00:00: Medical 00 [place] Allergies, Adverse Reactions, Alerts Allergy Allergy Status Severity Reaction(s) Onset Inactive Treating Comm ents Source Name Type Date Date Clinician NO KNOWN Allergy [facility] Social History Social Habit Start Date Stop Date Quantity Comments Source History of Smokes tobacco [facility] Ree es tobacco use daily [facility] Exposure to 2022-11-26 2022-12-06 Not sure [facility] of SARS-CoV-2 00:00:00 09:54:00 [facility] (event) Branch Sex Assigned At [birth year] [facility] 00:00:00 00:00:00 [facility] Smoking Status Start Date Stop Date Source Tobacco smoking consumption [facility] unknown Branch Smokes tobacco daily 2018-10-31 00:00:00 [facility] Medications Ordered Filled Start Stop Current Ordering Indication Dosage Frequency Signature Comments Components Source Medication Medication Date Date Medication? Clinician (SIG) Name Name levothyroxi Yes 50ug Take [address] ne 4-23 mcg by [facility] (SYNTHROID, 18:30: mouth Medic al LEVOTHROID) 02 Every Center 50 MCG morning on tablet an empty stomach. losartan Yes 12.5mg QD Take 12.[address] 12.5 MG 4-23 mg by [facility] halftab 18:30: mouth Medical half tablet 02 daily. [place] rosuvastati Yes 20mg QD Take [address] n (CRESTOR) 4-23 by mouth Luke s 20 MG 18:30: daily. Medical tablet 02 Center metoprolol Yes 12.5mg Q.5D Take 12.[address] (LOPRESSOR) 4-23 mg by [facility] 12.5 MG 18:30: mouth 2 Medical halftab 02 (two) Center half tablet times daily. metFORMIN 2019-0 Yes 1000mg Take 1,[address] (GLUCOPHAGE 4-23 mg by [facility] ) 1000 MG 18:30: mouth 2 Medic al tablet 02 (two) Center times daily with breakfast and dinner. levothyroxi 2019-0 Yes 50ug Take [address] ne 4-23 mcg by [facility]ukes (SYNTHROID, 18:30: mouth Medic al LEVOTHROID) 02 Every Center 50 MCG morning on tablet an empty stomach. losartan 2019-0 Yes 12.5mg QD Take 12.[address] 12.5 MG 4-23 mg by [facility] halftab 18:30: mouth Medical half tablet 02 [...] [facility] (GLUCOPHAGE 4-23 mg by [facility] ) 1000 MG 18:30: mouth 2 Medic al tablet 02 (two) Center times daily with breakfast and dinner. ticagrelor 2019 Yes 90mg Q.5D Take 1 [facility] (BRILINTA) 4-23 tablet (90 Ree es 90 mg Tab 00:00: mg total) Med ical tablet 00 by mouth 2 Center (two) times daily. insulin 20190 Yes 8U Q.5D Inject [address] glargine 4-23 Units [facility] (LANTUS 00:00: subcutaneo Medi arabella U-100 00 us 2 Center INSULIN) (two) 100 unit/mL times injection daily Use as directed. ticagrelor 2019-0 Yes 90mg Q.5D Take 1 [facility] (BRILINTA) 4-23 tablet (90 Ree es 90 mg Tab 00:00: mg total) Med ical tablet 00 by mouth 2 Center (two) times daily. insulin 2019-0 Yes 8U Q.5D Inject [address] glargine 4-23 Units [facility] (LANTUS 00:00: subcutaneo [facility] U-100 00 usly 2 Center INSULIN) (two) 100 unit/mL times injection daily Use as directed. Vital Signs Vital Name Observation Time Observation Value Comments Source Systolic blood 2022-12-06 19:38:00 138 mm[Hg] Univer sity of pressure [facility] Diastolic blood 2022-12-06 19:38:00 89 mm[Hg] Unive rsity of [facility] Heart rate 2022-12-06 19:38:00 69 /min [facility] Respiratory rate 2022-12-06 19:38:00 16 /min [facility] Oxygen saturation in 2022-12-06 19:38:00 98 /min [facility] Arterial blood by [facility] Pulse oximetry Novinger Body temperature 2022-12-06 14:54:00 36.72 Anila [facility] Body weight 2022-12-06 14:54:00 65.772 kg [facility] Procedures Procedure Date / Time Performed Performing Clinician Sour e EXTERNAL PROVIDER 2022-12-15 05:01:00 Doctor Unassigned, No Univ [facility] RECORDS Name [facility] Encounters Start End Encounter Admission Attending Care Care Encounter Source Date/Time Date/Time Type Type Clinicians Facility Department ID 2022-12-15 2022-12-15 Orders Doctor CHARLOTTE [id number] Univers 00:00:00 00:00:00 Only Unassigned, LISA [id number] ity of [place] [facility] [id number] Tawanda as [id number] [facility] 009 Branch 2022-12-06 2022-12-06 Emergency X MARWAN, [facility] ERT [id number] Univers 09:55:00 14:43:00 [facility] ity [facility] 2022-12-06 2022-12-06 Emergency Marwan, TRAUMA [id number] Univers 09:55:00 14:43:[address] [facility] [id number] it [id number] [id number] [facility] 014 Branch Results Test Description Test Time Test Comments Results Result Comments Source BLOOD CULTURE 2018-11-23 02:01:00 Test Item Value Reference Range Interpretation Comme nts CULTURE (BEAKER) (test code = 1095) No growth in 5 days BLOOD [id number] 02:01:00 Test Item Value Reference Range Interpretation Comments CULTURE (BEAKER) (test No growth in 5 days code = 1095) POCT-GLUCOSE [id number] 17:22:00 Test Item Value Reference Range Interpretation Comments POC-GLUCOSE METER 212 mg/dL 70-110 H TESTED AT [place] [address] [facility] (test code = [facility] 1538) [id number] POCT-GLUCOSE [id number] 12:44:00 Test Item Value Reference Range Interpretation Comments POC-GLUCOSE METER 229 mg/dL 70-110 H TESTED AT [place] [address] ([facility] (test code = [facility] 1538) 72678 POCT-GLUCOSE [id number] 06:22:00 Test Item Value Reference Range Interpretation Comments POC-GLUCOSE METER 211 mg/dL 70-110 H TESTED AT [place] [address] ([facility] (test code = [facility] 1538) 73396 BASIC METABOLIC [id number] 06:20:00 Test Item Value Reference Range Interpretation [...] 0-0 (BEAKER) (test code = 413) POCT-GLUCOSE [id number] 23:49:00 Test Item Value Reference Range Interpretation Comments POC-GLUCOSE METER 230 mg/dL 70-110 H TESTED AT [place] [address] (BEAKER) (test code = [place] 1538) [address] POCT-GLUCOSE [id number] 18:04:00 Test Item Value Reference Range Interpretation Comments POC-GLUCOSE METER 256 mg/dL 70-110 H TESTED AT [facility] 6720 (BEAKER) (test code = [place] 1538) [address] URINALYSIS WITH MICROSCOPIC IF [id number] 14:11:00 Test Item Value Reference Range Interpretation [...] 463) SOURCE(BEAKER) (test code = 2795) POCT-GLUCOSE [id number] 12:12:00 Test Item Value Reference Range Interpretation Comments POC-GLUCOSE METER 227 mg/dL 70-110 H TESTED AT [place] [address] ([facility]) (test code = [place] 1538) 57394 POCT-GLUCOSE [id number] 11:58:00 Test Item Value Reference Range Interpretation Comments POC-GLUCOSE METER 243 mg/dL 70-110 H TESTED AT [place] [address] ([facility]) (test code = [facility] 1538) 12278 BASIC METABOLIC [id number] 05:42:00 Test Item Value Reference Range Interpretation [...] 0-0 (BEAKER) (test code = 413) POCT-GLUCOSE [id number] 17:25:00 Test Item Value Reference Range Interpretation Comments POC-GLUCOSE METER 267 mg/dL 70-110 H TESTED AT [facility] 6720 (BEAKER) (test code = [place] 1532) [address] URINALYSIS W/ REFLEX URINE [id number] 14:12:00 Test Item Value Reference Range Interpretation [...] Rare SOURCE(BEAKER) (test code = 2795) POCT-GLUCOSE [id number] 11:51:00 Test Item Value Reference Range Interpretation Comments POC-GLUCOSE METER 258 mg/dL 70-110 H TESTED AT [place] [address] (BEAKER) (test code = [facility] 1538) 58326 POCT-GLUCOSE [id number] 09:43:00 Test Item Value Reference Range Interpretation Comments POC-GLUCOSE METER 235 mg/dL 70-110 H TESTED AT [place] [address] (BEAKER) (test code = [facility] 1538) 26862 TROPONIN [id number] 05:55:00 Test Item Value Reference Range Interpretation [...] acute neurological disease, and persistent tachyarrhythmia.BASIC METABOLIC [id number] 05:53:00 Test Item Value Reference Range Interpretation [...] 0-0 (BEAKER) (test code = 413) POCT-GLUCOSE [id number] 01:42:00 Test Item Value Reference Range Interpretation Comments POC-GLUCOSE METER 239 mg/dL 70-110 H TESTED AT [facility] 6720 (BEAKER) (test code = [place] 1538) [address] TROPONIN [id number] 00:15:00 Test Item Value Reference Range Interpretation [...] 463) SOURCE(BEAKER) (test code = 2795) URINALYSIS [id number] 00:06:00 Test Item Value Reference Range Interpretation Comments RBC UA (BEAKER) (test code = 519) 1 /HPF WBC UA (BEAKER) (test code = 520) 5 /HPF BACTERIA (BEAKER) (test code = 517) Rare MUCUS (BEAKER) (test code = 1574) Rare TROPONIN [id number] 18:49:00 Test Item Value Reference Range Interpretation [...] acidosis, acute neurological disease, and persistent tachyarrhythmia.POCT-GLUCOSE [id number] 16:26:00 Test Item Value Reference Range Interpretation Comments POC-GLUCOSE METER 316 mg/dL 70-110 H Notified Soledad Micahels MD/TESTED (EDWIN) (test code = AT [place] [address]) [facility] 7703 0 POCT-GLUCOSE [id number] 13:27:00 Test Item Value Reference Range Interpretation Comments POC-GLUCOSE METER 272 mg/dL 70-110 H TESTED AT [place] [address] ([facility]WIN) (test code = [place] [address]) [address] TROPONIN [id number] 11:19:00 Test Item Value Reference Range Interpretation [...] acute neurological disease, and persistent tachyarrhythmia.BASIC METABOLIC [id number] 07:39:00 Test Item Value Reference Range Interpretation [...] NOT APPLICABLE FOR DIALYSIS PATIEN TS. TROPONIN [id number] 06:49:00 Test Item Value Reference Range Interpretation [...] acidosis, acute neurological disease, and persistent tachyarrhythmia.POCT-GLUCOSE [id number] 05:50:00 Test Item Value Reference Range Interpretation Comments POC-GLUCOSE METER 244 mg/dL 70-110 H TESTED AT [facility] 6720 (BEAKER) (test code = [place] 1538) 608[address] CBC (HEMOGRAM ONLY)2018-11-17 04:38:00 Test Item Value [...] code = 412) PLATELET COUNT (AKER) (test 391 K/CU MM 150-450 code = 756) MEAN PLATELET VOLUME (BEAKER) 10.7 fL 9.4-12.4 (test code = 754) NUCLEATED RED BLOOD CELLS 0 /100 WBC 0-0 (AKER) (test code = 413) POCT-GLUCOSE [id number] 23:38:00 Test Item Value Reference Range Interpretation Comments POC-GLUCOSE METER 232 mg/dL 70-110 H TESTED AT [place] [address] ([facility]) (test code = [facility] 1538) [address]40 TROPONIN [id number] 18:59:00 Test Item Value Reference Range Interpretation Comments TROPONIN I (AKER) (test code = 0.02 ng/mL 0.00-0.03 397) [...] acidosis, acute neurological disease, and persistent tachyarrhythmia.POCT-GLUCOSE [id number] 18:22:00 Test Item Value Reference Range Interpretation Comments POC-GLUCOSE METER 244 mg/dL 70-110 H TESTED AT [facility] 6720 ([facility]) (test code = [facility] 1538) 923[address] BASIC METABOLIC [id number] 06:29:00 Test Item Value Reference Range Interpretation [...] 0-0 (BEAKER) (test code = 413) POCT-GLUCOSE [id number] 05:53:00 Test Item Value Reference Range Interpretation Comments POC-GLUCOSE METER 208 mg/dL 70-110 H TESTED AT [place] [address] ([facility]) ([facility] [id number] POCT-GLUCOSE [id number] 23:49:00 Test Item Value Reference Range Interpretation Comments POC-GLUCOSE METER 221 mg/dL 70-110 H TESTED AT [place] [address] ([facility]) (test code = [facility] 1538) 02780 POCT-GLUCOSE [id number] 17:37:00 Test Item Value Reference Range Interpretation Comments POC-GLUCOSE METER 237 mg/dL 70-110 H TESTED AT [place] [address] ([facility]) (test code = [facility] 1538) 29709 POCT-GLUCOSE [id number] 12:33:00 Test Item Value Reference Range Interpretation Comments POC-GLUCOSE METER 223 mg/dL 70-110 H TESTED AT [place] [address] ([facility]) (test code = [facility] 1538) 50871 POCT-GLUCOSE [id number] 06:38:00 Test Item Value Reference Range Interpretation Comments POC-GLUCOSE METER 247 mg/dL 70-110 H TESTED AT [place] [address] ([facility]) (test code = [facility] 1538) 97285 BASIC METABOLIC [id number] 06:01:00 Test Item Value Reference Range Interpretation [...] 358) GLUCOSE RANDOM 217 mg/dL 70-105 H [facility] (test code = 652) CALCIUM (BEAKER) 9.6 [...] 0-0 (BEAKER) (test code = 413) POCT-GLUCOSE [id number] 02:35:00 Test Item Value Reference Range Interpretation Comments POC-GLUCOSE METER 220 mg/dL 70-110 H TESTED AT [facility] 6720 ([facility]) (test code = [place] 1538) [address] POCT-GLUCOSE [id number] 16:55:00 Test Item Value Reference Range Interpretation Comments POC-GLUCOSE METER 239 mg/dL 70-110 H TESTED AT [facility] 6720 ([facility]) (test code = [place] 1538) [address] POCT-GLUCOSE [id number] 12:09:00 Test Item Value Reference Range Interpretation Comments POC-GLUCOSE METER 246 mg/dL 70-110 H TESTED AT [facility] 6720 ([facility]) (test code = [place] 1538) [address] BASIC METABOLIC [id number] 05:52:00 Test Item Value Reference Range Interpretation [...] NOT APPLICABLE FOR DIALYSIS PATIEN TS. POCT-GLUCOSE [id number] 05:37:00 Test Item Value Reference Range Interpretation Comments POC-GLUCOSE METER 181 mg/dL 70-110 H TESTED AT [facility] 6720 ([facility]) (test code = [place] 1538) [id number] CBC (HEMOGRAM ONLY)2018-11-14 05:37:00 Test Item Value [...] 753) MEAN CORPUSCULAR HEMOGLOBIN 28.4 pg 25.7-32.2 ([facility]) (test code = 751) MEAN CORPUSCULAR HEMOGLOBIN CONC 32.7 GM/DL 32.3-36.5 ([facility]) (test code = 752) RED CELL DISTRIBUTION WIDTH 14.6 % 11.6-14.4 H ([facility]) (test code = 412) PLATELET COUNT ([facility]) (test 331 K/CU MM 150-450 code = 756) MEAN PLATELET VOLUME ([facility]) 10.5 fL 9.4-12.4 (test code = 754) NUCLEATED RED BLOOD CELLS 0 /100 WBC 0-0 ([facility]) (test code = 413) POCT-GLUCOSE [id number] 00:10:00 Test Item Value Reference Range Interpretation Comments POC-GLUCOSE METER 225 mg/dL 70-110 H TESTED AT [facility] 67 ([facility]) (test code = [place] [facility] 1538) [id number] POCT-GLUCOSE [id number] 17:58:00 Test Item Value Reference Range Interpretation Comments POC-GLUCOSE METER 221 mg/dL 70-110 H TESTED AT [place] [address] ([facility]) (test code = [place] [facility] 1538) [address] CT, SPINE, CERVICAL, WO [id number] 15:33:00FINAL REPORT EXAM: CERVICAL SPINE CT WITHOUT [...] MDReport Verified Date/Time: 11/13/2018 15:33:48 Reading Location: [facility] Radiology Reading Room CT, BRAIN, WITHOUT [id number] 15:22:00FINAL REPORT CT head without contrast. Reason [...] Parker Verified Date/Time: 11/13/2018 15:22:34 Reading Location: [address] Consult Reading Room POCT-GLUCOSE [id number] 12:10:00 Test Item Value Reference Range Interpretation Comments POC-GLUCOSE METER 218 mg/dL 70-110 H TESTED AT [facility] 6720 (BEAKER) (test code = [place] [facility] 5448) [address] BASIC METABOLIC [id number] 08:05:00 Test Item Value Reference Range Interpretation [...] PATIEN TS. CBC W/PLT COUNT & AUTO [id number] 08:02:00 Test Item Value Reference Range Interpretation [...] PERCENT (BEAKER) (test code = 2801) POCT-GLUCOSE [id number] 05:35:00 Test Item Value Reference Range Interpretation Comments POC-GLUCOSE METER 190 mg/dL 70-110 H TESTED AT [place] [address] ([facility]) (test code = [place] [address]) [address] POCT-GLUCOSE [id number] 00:25:00 Test Item Value Reference Range Interpretation Comments POC-GLUCOSE METER 193 mg/dL 70-110 H TESTED AT [place] [address] ([facility]) (test code = [facility] 1538) 52444 POCT-GLUCOSE [id number] 18:09:00 Test Item Value Reference Range Interpretation Comments POC-GLUCOSE METER 204 mg/dL 70-110 H TESTED AT [place] [address] ([facility]) (test code = [place] [address]) [address] CORDELIA, CAROTID STENT W [id number] 14:42:00Reason for exam:->R carotid stent for carotid stenosisFINAL REPORT DATE OF PROCEDURE: 11/07/2018 SURGEON: Garrett Echevarria M.D. STRUCTURAL IRON WORKER: Lon Lopez MD PREOPERATIVE DIAGNOSIS: Right hemispheric stroke with severe right carotid artery stenosis POST OPERATIVE DIAGNOSIS: Right hemispheric stroke with severe right carotid artery stenosis OPERATION: 1) Cerebral Angiogram2) right carotid stent IMPLANTS: Precise Pro Stent 2o48Rmlz stent 8-6 x 40 ANESTHESIA: Moderate sedation [...] dilation was performed and then a 9 [place] short sheath was placed in the right common femoral artery and placed on heparinized flush. Angiography was performed via the sheath confirmed satisfactory placement. A 5 [place] diagnostic glide catheter was then used to [...] MDReport Verified Date/Time: 11/12/2018 14:42:01 Reading [facility] Electronically signed by: GARRETT ECHEVARRIA MD on 0 11/12/2018 02:42 PMNV, ANGIOGRAM, [id number] 14:41:00Reason for exam:- >right ICA stenosisFINAL REPORT DATE OF PROCEDURE: November 05, 2018 SURGEON: Garrett Echevarria M.D. STRUCTURAL IRON WORKER: Lon Lopez MD PREOPERATIVE DIAGNOSIS: Right carotid [...] referred for diagnostic angiogram for further evaluation. [place] OCEDURE: Following explanation of the benefits, risks [...] removed and hemostasis was achieved with a 6-[place] AngioSeal closure device. The patient tolerated the [...] LATERAL, OBLIQUE - HEAD) There is spontaneous farmer tree fruit and nut crops ssfilling across the anterior communicating artery with [...] MDReport Verified Date/Time: 11/12/2018 14:41:58 Reading Location: [facility] POCT-GLUCOSE METER 2018-11-12 12:37:00 Test Item Value Reference Range Interpretation Comments POC-GLUCOSE METER 157 mg/dL 70-110 H TESTED AT [facility] 67 [facility] (test code = [place] 1538) [id number] POCT-GLUCOSE [id number] 06:41:00 Test Item Value Reference Range Interpretation Comments POC-GLUCOSE METER 176 mg/dL 70-110 H TESTED AT [facility] 6720 (BEAKER) (test code = [place] 1538) [address] BASIC METABOLIC [id number] 06:30:00 Test Item Value Reference Range Interpretation [...] 0-0 (BEAKER) (test code = 413) POCT-GLUCOSE [id number] 00:14:00 Test Item Value Reference Range Interpretation Comments POC-GLUCOSE METER 199 mg/dL 70-110 H TESTED AT [facility] 67 [facility] (test code = [facility] 1538) 73851 POCT-GLUCOSE [id number] 17:13:00 Test Item Value Reference Range Interpretation Comments POC-GLUCOSE METER 221 mg/dL 70-110 H TESTED AT [place] [address] ([facility] (test code = [facility] 1538) 07046 POCT-GLUCOSE [id number] 12:47:00 Test Item Value Reference Range Interpretation Comments POC-GLUCOSE METER 184 mg/dL 70-110 H TESTED AT [place] [address] ([facility]) (test code = [facility] 1538) 45315 BASIC METABOLIC [id number] 06:22:00 Test Item Value Reference Range Interpretation [...] NOT APPLICABLE FOR DIALYSIS PATIEN TS. POCT-GLUCOSE [id number] 06:07:00 Test Item Value Reference Range Interpretation Comments POC-GLUCOSE METER 183 mg/dL 70-110 H TESTED AT [facility] 6720 ([facility]) (test code = [place] [facility] 1538) 48561 CBC (HEMOGRAM ONLY)2018-11-11 05:13:00 Test Item Value [...] 0-0 (BEAKER) (test code = 413) POCT-GLUCOSE [id number] 00:14:00 Test Item Value Reference Range Interpretation Comments POC-GLUCOSE METER 176 mg/dL 70-110 H TESTED AT [place] [address] ([facility]) (test code = [facility] 1538) 33014 POCT-GLUCOSE [id number] 17:43:00 Test Item Value Reference Range Interpretation Comments POC-GLUCOSE METER 195 mg/dL 70-110 H TESTED AT [place] [address] ([facility]) (test code = [facility] 1538) 62957 POCT-GLUCOSE [id number] 12:08:00 Test Item Value Reference Range Interpretation Comments POC-GLUCOSE METER 170 mg/dL 70-110 H TESTED AT [place] [address] ([facility]) (test code = [place] [facility] 1538) [address]997 BASIC METABOLIC [id number] 07:13:00 Test Item Value Reference Range Interpretation [...] NOT APPLICABLE FOR DIALYSIS PATIEN TS. POCT-GLUCOSE [id number] 06:08:00 Test Item Value Reference Range Interpretation Comments POC-GLUCOSE METER 178 mg/dL 70-110 H TESTED AT [place] [address] ([facility]) (test code = [facility] Soledad [facility] 1538) 26009 CBC (HEMOGRAM ONLY)2018 05:55:00 Test Item Value [...] code = 412) PLATELET COUNT (AKER) (test 292 K/CU MM 150-450 code = 756) MEAN PLATELET VOLUME (AKER) 10.5 fL 9.4-12.4 (test code = 754) NUCLEATED RED BLOOD CELLS 0 /100 WBC 0-0 (AKER) (test code = 413) POCT-GLUCOSE [id number] 01:11:00 Test Item Value Reference Range Interpretation Comments POC-GLUCOSE METER 160 mg/dL 70-110 H TESTED AT [place] [address] ([facility]) (test [facility] = [facility] [facility] 1538[facility] [id number] POCT-GLUCOSE [id number] 12:18:00 Test Item Value Reference Range Interpretation Comments POC-GLUCOSE METER 147 mg/dL 70-110 H TESTED AT [place] [address] ([facility]) (test code = [facility] 1538) 10195 POCT-GLUCOSE [id number] 08:20:00 Test Item Value Reference Range Interpretation Comments POC-GLUCOSE METER 155 mg/dL 70-110 H TESTED AT [place] [address] ([facility]) (test code = [facility] 1538) 82278 BASIC METABOLIC [id number] 06:07:00 Test Item Value Reference Range Interpretation [...] 0-0 (BEAKER) (test code = 413) POCT-GLUCOSE [id number] 23:57:00 Test Item Value Reference Range Interpretation Comments POC-GLUCOSE METER 140 mg/dL 70-110 H TESTED AT [facility] 6720 (BEAKER) (test code = [place] 1538) [address] POCT-GLUCOSE [id number] 17:30:00 Test Item Value Reference Range Interpretation Comments POC-GLUCOSE METER 127 mg/dL 70-110 H TESTED AT [place] [address] (BEAKER) (test code = [facility] [place] 1538) 94991 POCT-GLUCOSE [id number] 11:54:00 Test Item Value Reference Range Interpretation Comments POC-GLUCOSE METER 133 mg/dL 70-110 H TESTED AT [place] [address] (BEAKER) (test code = [facility] 1538) 6[address]68 POCT-GLUCOSE [id number] 06:37:00 Test Item Value Reference Range Interpretation Comments POC-GLUCOSE METER 110 mg/dL 70-110 TESTED AT [place] [address] (BEAKER) (test code = [facility] 1538) 098[address] BASIC METABOLIC [id number] 06:28:00 Test Item Value Reference Range Interpretation [...] % 40.1-51.0 L 411) MEAN CORPUSCULAR VOLUME ([facility]) 85.7 fL 79.0-92.2 (test code = 753) MEAN CORPUSCULAR HEMOGLOBIN 28.8 pg 25.7-32.2 ([facility]) (test code = 751) MEAN CORPUSCULAR HEMOGLOBIN CONC 33.6 GM/DL 32.3-36.5 ([facility]) (test code = 752) RED CELL DISTRIBUTION WIDTH 14.6 % 11.6-14.4 H ([facility]) (test code = 412) PLATELET COUNT ([facility]) (test 256 K/CU MM 150-450 code = 756) MEAN PLATELET VOLUME ([facility]) 10.4 fL 9.4-12.4 (test code = 754) NUCLEATED RED BLOOD CELLS 0 /100 WBC 0-0 ([facility]) (test code = 413) POCT-GLUCOSE [id number] 01:21:00 Test Item Value Reference Range Interpretation Comments POC-GLUCOSE METER 131 mg/dL 70-110 H TESTED AT [place] [address] ([facility]) (test code = [facility] 1538) 56924 POCT-GLUCOSE [id number] 18:16:00 Test Item Value Reference Range Interpretation Comments POC-GLUCOSE METER 159 mg/dL 70-110 H TESTED AT [place] [address] ([facility]) (test code = [facility] [place] [facility] 1538) 34665 [id number] 15:58:00 Test Item Value Reference Range Interpretation Comments ACTIVATED CLOTTING TIME 252 sec TEST ED AT [place] [address] ([facility]) (test code = [facility] [place] 441) [address] POCT-GLUCOSE [id number] 13:49:00 Test Item Value Reference Range Interpretation Comments POC-GLUCOSE METER 155 mg/dL 70-110 H TESTED AT [place] [address] ([facility]) (test code = [facility] 1538) 50499 POCT-P2Y12 PLATELET [id number] 12:44:00 Test Item Value Reference Range Interpretation Comments POC-P2Y12 PLATELET AGG ([facility]) (test 83 PRU code = 2303) RANGE INFORMATION: PRU reference range is 194-418. Post Drug Results: Lower PRU levels are associated with expected antiplatelet effect. Values may be below the stated reference range above. The post-drug PRU values reported in the [employer] P2Y12 package insert are [id number].CT, BRAIN, WITHOUT [id number] 09:26:00FINAL REPORT CT, BRAIN, WITHOUT CONTRAST CLINICAL [...] MDReport Verified Date/Time: 11/07/2018 09:26:55 Reading Location: [address] Neuro Reading Room POCT-GLUCOSE [id number] 06:41:00 Test Item Value Reference Range Interpretation Comments POC-GLUCOSE METER 186 mg/dL 70-110 H TESTED AT [facility] 6720 [facility] (test code = [place] 1538) [address] POCT-P2Y12 PLATELET [id number] 06:16:00 Test Item Value Reference Range Interpretation Comments POC-P2Y12 PLATELET AGG ([facility]) (test 247 PRU code = 2303) RANGE INFORMATION: PRU reference range is 194-418. Post Drug Results: Lower PRU levels are associated with expected antiplatelet effect. Values may be below the stated reference range above. The post-drug PRU values reported in the [employer] P2Y12 package insert are [id number].BASIC METABOLIC [id number] 06:01:00 Test Item Value Reference Range Interpretation [...] code = 412) PLATELET COUNT (AKER) (test 218 K/CU MM 150-450 code = 756) MEAN PLATELET VOLUME (AKER) 10.5 fL 9.4-12.4 (test code = 754) NUCLEATED RED BLOOD CELLS 0 /100 WBC 0-0 (AKER) (test code = 413) POCT-GLUCOSE [id number] 23:34:00 Test Item Value Reference Range Interpretation Comments POC-GLUCOSE METER 173 mg/dL 70-110 H TESTED AT [place] [address] ([facility]) (test code = [facility] 1538) [address] RAD, ABDOMEN/KUB, 1 VIEW [id number] 19:42:00Reason for exam:->verify corpak placementShould this be [...] component of dysmotility with constipation. Signed: [facility] Verified Date/Time: 11/06/2018 19:42:40 Reading Location: [address] Reading Room POCT-GLUCOSE [id number] 18:59:00 Test Item Value Reference Range Interpretation Comments POC-GLUCOSE METER 143 mg/dL 70-110 H TESTED AT [facility] 67 ([facility]) (test code = [facility] [place] [facility] 1538) 95389 POCT-GLUCOSE [id number] 14:46:00 Test Item Value Reference Range Interpretation Comments POC-GLUCOSE METER 169 mg/dL 70-110 H TESTED AT [facility] 6720 ([facility]) (test code = [facility] [place] [facility] 1538) [address] FL, ESOPH, SWALLOW FUNCTION, WITH CINE OR [id number] 14:10:00Reason for exam:->dysphagiaFINAL REPORT Modified barium swallow [...] Veri fied Date/Time: 11/06/2018 14:10:54 Reading Location: [facility] B1 C013X Ortho Consult Reading Room C METABOLIC [id number] 06:28:00 Test Item Value Reference Range Interpretation [...] NOT APPLICABLE FOR DIALYSIS PATIEN TS. POCT-GLUCOSE [id number] 06:19:00 Test Item Value Reference Range Interpretation Comments POC-GLUCOSE METER 216 mg/dL 70-110 H TESTED AT [facility] 6720 (BEAKER) (test code = [place] 1538) [address] CBC (HEMOGRAM ONLY)2018-11-06 05:54:00 Test Item Value [...] 0-0 (BEAKER) (test code = 413) POCT-GLUCOSE [id number] 01:34:00 Test Item Value Reference Range Interpretation Comments POC-GLUCOSE METER 175 mg/dL 70-110 H TESTED AT [place] [address] ([facility]) (test code = [facility] [place] [facility] 1538) [address] POCT-GLUCOSE [id number] 19:12:00 Test Item Value Reference Range Interpretation Comments POC-GLUCOSE METER 150 mg/dL 70-110 H TESTED AT [place] [address] ([facility]) (test code = [facility] [place] [facility] 1538) 6[address] POCT-GLUCOSE [id number] 11:28:00 Test Item Value Reference Range Interpretation Comments POC-GLUCOSE METER 169 mg/dL 70-110 H TESTED AT [place] [address] ([facility]) ([facility] = [facility] 1538) [address] BASIC METABOLIC [id number] 07:23:00 Test Item Value Reference Range Interpretation [...] NOT APPLICABLE FOR DIALYSIS PATIEN TS. POCT-GLUCOSE [id number] 06:37:00 Test Item Value Reference Range Interpretation Comments POC-GLUCOSE METER 158 mg/dL 70-110 H TESTED AT [facility] 6720 ([facility]) (test code = [place] 1538) [address] [id number] 05:42:00 Test Item Value Reference Range Interpretation [...] 0-0 (AKER) (test code = 413) POCT-GLUCOSE [id number] 23:19:00 Test Item Value Reference Range Interpretation Comments POC-GLUCOSE METER 231 mg/dL 70-110 H TESTED AT [place] [address] ([facility]) (test code = [facility] 1538) 21571 POCT-GLUCOSE [id number] 18:05:00 Test Item Value Reference Range Interpretation Comments POC-GLUCOSE METER 245 mg/dL 70-110 H TESTED AT [place] [address] ([facility]) (test code = [facility] [place] [facility] 1538) 64766 POCT-GLUCOSE [id number] 12:49:00 Test Item Value Reference Range Interpretation Comments POC-GLUCOSE METER 197 mg/dL 70-110 H TESTED AT [place] [address] ([facility]) (test code = [facility] 1538) 01811 BASIC METABOLIC [id number] 09:31:00 Test Item Value Reference Range Interpretation [...] 0-0 (BEAKER) (test code = 413) POCT-GLUCOSE [id number] 23:44:00 Test Item Value Reference Range Interpretation Comments POC-GLUCOSE METER 187 mg/dL 70-110 H TESTED AT [facility] 6720 ([facility]) (test code = [facility] [place] 1538) 71228 POCT-GLUCOSE [id number] 17:30:00 Test Item Value Reference Range Interpretation Comments POC-GLUCOSE METER 231 mg/dL 70-110 H TESTED AT [facility] 6720 (BEAKER) (test code = [facility] 1538) 75427 POCT-GLUCOSE [id number] 12:40:00 Test Item Value Reference Range Interpretation Comments POC-GLUCOSE METER 205 mg/dL 70-110 H TESTED AT [place] [address] (BEAKER) (test code = [facility] 1538) 40928 BASIC METABOLIC [id number] 08:48:00 Test Item Value Reference Range Interpretation [...] NOT APPLICABLE FOR DIALYSIS PATIEN TS. POCT-GLUCOSE [id number] 06:30:00 Test Item Value Reference Range Interpretation Comments POC-GLUCOSE METER 153 mg/dL 70-110 H TESTED AT [facility] 6720 (BEAKER) (test code = [facility] 1538) 76238 CBC (HEMOGRAM ONLY)2018-11-03 05:19:00 Test Item Value Reference Range Interpretation Comments WHITE BLOOD CELL COUNT (BEAKER) 12.3 K/ L 3.5-10.5 H (test code = 775) RED BLOOD CELL COUNT (BEAKER) 4.24 M/ L 4.63-6.08 L (test code = 761) HEMOGLOBIN (BEAKER) (test code = 12.1 GM/DL 13.7-17.5 L 410) HEMATOCRIT (BEAKER) (test code = 37.0 % 40.1-51.0 L 411) MEAN CORPUSCULAR VOLUME (AKER) 87.3 fL 79.0-92.2 (test code = 753) MEAN CORPUSCULAR HEMOGLOBIN 28.5 pg 25.7-32.2 (AKER) (test code = 751) MEAN CORPUSCULAR HEMOGLOBIN CONC 32.7 GM/DL 32.3-36.5 (AKER) (test code = 752) RED CELL DISTRIBUTION WIDTH 14.8 % 11.6-14.4 H (AKER) (test code = 412) PLATELET COUNT ([facility]) (test 175 K/CU MM 150-450 code = 756) MEAN PLATELET VOLUME ([facility]) 11.3 fL 9.4-12.4 (test code = 754) NUCLEATED RED BLOOD CELLS 0 /100 WBC 0-0 ([facility]) (test code = 413) POCT-GLUCOSE [id number] 23:20:00 Test Item Value Reference Range Interpretation Comments POC-GLUCOSE METER 133 mg/dL 70-110 H TESTED AT [place] [address] ([facility]) (test code = [facility] 1538) 31601 POCT-GLUCOSE [id number] 17:27:00 Test Item Value Reference Range Interpretation Comments POC-GLUCOSE METER 107 mg/dL 70-110 TESTED AT [place] [address] ([facility]) (test code = [facility] 1538) 60415 POCT-GLUCOSE [id number] 09:07:00 Test Item Value Reference Range Interpretation Comments POC-GLUCOSE METER 101 mg/dL 70-110 TESTED AT [place] [address] ([facility]) (test code = [facility] [place] [facility] 1538) 55073 TROPONIN [id number] 07:02:00 Test Item Value Reference Range Interpretation Comments TROPONIN I ([facility]) (test code = 0.04 ng/mL 0.00-0.03 H [...] acute neurological disease, and persistent tachyarrhythmia.BASIC METABOLIC [id number] 06:55:00 Test Item Value Reference Range Interpretation [...] 0-100 H (test code = 700) PROTHROMBIN [id number] 06:35:00 Test Item Value Reference Range Interpretation [...] 0-0 (BEAKER) (test code = 413) POCT-GLUCOSE [id number] 05:55:00 Test Item Value Reference Range Interpretation Comments POC-GLUCOSE METER 114 mg/dL 70-110 H TESTED AT [place] [address] ([facility]) (test code = [facility] 1538) 20784 POCT-GLUCOSE [id number] 23:27:00 Test Item Value Reference Range Interpretation Comments POC-GLUCOSE METER 133 mg/dL 70-110 H TESTED AT [place] [address] ([facility]) (test code = [facility] 1538) 70624 RAD, ABDOMEN/KUB, 1 VIEW [id number] 18:35:00Reason for exam:->To check NG TUbe positionFINAL REPORT INDICATION:Confirm feeding tube placement. TECHNIQUE: Abdomen radiograph one view. FINDINGS / IMPRESSION:There is a feeding tube that follows the course of the stomachwith the tip projecting over the gastric antrum. Visualized bowel gas pattern is unremarkable. Osseous structures unremarkable. Signed: Bora Hawk MDReport Verified Date/Time: 11/01/2018 18:35:02Reading Location: [facility] B1 C013W Consult Reading Room -GLUCOSE [id number] 17:52:00 Test Item Value Reference Range Interpretation Comments POC-GLUCOSE METER 134 mg/dL 70-110 H TESTED AT [facility] 6720 (BEAKER) (test code = [place] 1538) [address] POCT-GLUCOSE [id number] 15:42:00 Test Item Value Reference Range Interpretation Comments POC-GLUCOSE METER 135 mg/dL 70-110 H TESTED AT [facility] 6720 (BEAKER) (test code = [place] [place] 1538) [address] [id number] 06:25:00 Test Item Value Reference Range Interpretation Comments MAGNESIUM (BEAKER) (test code = 2.3 mg/dL 1.6-2.6 627) COMPREHENSIVE METABOLIC [id number] 06:25:00 Test Item Value Reference Range Interpretation [...] PATIEN TS. CBC W/PLT COUNT & AUTO [id number] 06:11:00 Test Item Value Reference Range Interpretation [...] (test code = 2801) CT, BRAIN, WITHOUT [id number] 05:58:00FINAL REPORT EXAM: CT head without contrast. [...] hematoma cannot be excluded Signed: [facility]ron [facility] Verified Date/Time: 11/01/2018 05:58:05 Reading Location: [facility] B1 C013Y CT Body Reading Room POCT-GLUCOSE [id number] 23:14:00 Test Item Value Reference Range Interpretation Comments POC-GLUCOSE METER 165 mg/dL 70-110 H TESTED AT [place] [address] ([facility]) (test code = [place] 1538) [address] CT, CTANGIO [id number] 18:44:00FINAL REPORT CT, CTANGIO BRAIN, CT, CAROTID, [...] carotid artery is widely patent extracranially. Nonvascular findings:Jpnk-yw-uiifopnn degenerative changes are present in the cervical [...] MDReport Verified Date/Time: 10/31/2018 18:44:42 Reading Location: [address] Neuro Reading Room CT, CAROTID, [id number] 18:44:00FINAL REPORT CT, CTANGIO BRAIN, CT, CAROTID, [...] carotid artery is widely patent extracranially. Nonvascular findings:Uutz-pa-vruguxsy degenerative changes are present in the cervical [...] MDReport Verified Date/Time: 10/31/2018 18:44:42 Reading Location: [address] NeuroReading Room [id number] 14:17:00 Test Item Value Reference Range Interpretation Comments RPR SCREEN (BEAKER) (test code = Nonreactive Nonreactive 420) CBC W/PLT COUNT & AUTO [id number] 12:54:00 Test Item Value Reference Range Interpretation [...] 3438) Received comment: User comments: Slide comments:HEMOGLOBIN [id number] 11:05:00 Test Item Value Reference Range Interpretation Comments HEMOGLOBIN A1C (BEAKER) (test code = 8.4 % 4.3-6.1 H 368) VITAMIN [id number] 07:43:00 Test Item Value Reference Range Interpretation Comments VITAMIN B12 (BEAKER) (test code = 595 pg/mL 213-816 774) TROPONIN [id number] 07:21:00 Test Item Value Reference Range Interpretation [...] acidosis, acute neurological disease, and persistent tachyarrhythmia.C-REACTIVE [id number] 07:16:00 Test Item Value Reference Range Interpretation Comments C-REACTIVE PROTEIN (BEAKER) (test 4.19 mg/dL 0.00-0.50 H code = 676) TSH/FREE T4 IF [id number] 06:15:00 Test Item Value Reference Range Interpretation Comments THYROID STIMULATING HORMONE 2.46 uIU/mL 0.35-4.94 (BEAKER) (test code = 772) [id number] 05:54:00 Test Item Value Reference Range Interpretation [...] 2.5-3.5 for patients with mechanical heart valves.LIPID [id number] 05:51:00 Test Item Value Reference Range Interpretation [...] 130-159 High 160-189 Very High >=190COMPREHENSIVE METABOLIC [id number] 05:51:00 Test Item Value Reference Range Interpretation [...]
--- NOTE | 2023-03-02 00:53 | ER ---
Nurse's Notes [facility] Name: Zain Hope Age: 72 yrs Sex: Male : 1950 Arrival Date: 03/01/2023 Time: 23:37 Bed 5 Private MD: Diagnosis: Contusion of forehead;Skin tear to right hand Presentation: 03/01 23:42 Chief complaint: EMS states: Pt is from [facility] and was trying to put kd3 his shoes on and he fell down and he hit his head on the floor. Hematoma noted to the left forehead and scrapes on the right knuckles. pt is A\T\O x 3 and denies Loc. Pt has a history of left sided weakness. Coronavirus screen: Vaccine status: Patient reports receiving the 2nd dose of the covid vaccine. Ebola Screen: No symptoms or risks identified at this time. Initial Sepsis Screen: Does the patient meet any 2 criteria? No. Patient's initial sepsis screen is negative. Does the patient have a suspected source of infection? No. Patient's initial sepsis screen is negative. Risk Assessment: Do you want to hurt yourself or someone else? Patient reports no desire to harm self or others. Onset of symptoms was March 01, 2023. 23:42 Method Of Arrival: EMS: [facility] kd3 23:42 Acuity: BRYANT 3 kd3 Triage Assessment: 23:44 General: Appears in no apparent distress. Behavior is calm, cooperative. Pain: kd3 Complains of pain in forehead. 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 - Social history:: Smoking status: unknown. - Family history:: not pertinent. Screenin/03 01:02 [facility] ED Fall Risk Assessment (Adult) History of falling in the last 3 months, kd3 including since admission Yes- single mechanical fall (1 pt) Confusion or Disorientation No (0 pts) Intoxicated or Sedated No (0 pts) Impaired Gait Yes (1 pt) Mobility Assist Device Used No (0 pt) Altered Elimination No (0 pt) Score/Fall Risk Level 0 - 2 = Low Risk Maintained a safe environment. Abuse screen: Denies threats or abuse. Denies injuries from another. Nutritional screening: No deficits noted. Tuberculosis screening: No symptoms or risk factors identified. Assessment: 01:01 General: Appears in no apparent distress. Behavior is calm, cooperative. Pain: kd3 Complains of pain in forehead. Neuro: Level of Consciousness is awake, alert, obeys commands, Oriented to person, place, time, situation. Cardiovascular: Patient's skin is warm and dry. Respiratory: Airway is patent Trachea midline Respiratory effort is even, unlabored, Respiratory pattern is regular, symmetrical. 01:29 Reassessment: No changes from previously documented assessment. Patient and/or family kd3 updated on plan of care and expected duration. Pain level reassessed. Patient is alert, oriented x 3, equal unlabored respirations, skin warm/dry/pink. Patient states feeling better. Vital Signs: 03/01 23:42 BP 173 / 97; Pulse 58; Resp 18; Temp 98.1(O); Pulse Ox 100% on R/A; Weight 65.77 kg; rv1 Height 5 ft. 10 in. ; Pain 6/10; 03/02 00:47 BP 166 / 80; Pulse 55; Resp 17; Pulse Ox 98% on R/A; rv1 01:01 BP 172 / 91; Pulse 53; Resp 16; Pulse Ox 98% on R/A; kd3 03/01 23:42 Body Mass Index 20.81 (65.77 kg, 177.8 cm) rv1 03/01 23:42 Pain Scale: Adult rv1 ED Course: 03/01 23:41 Patient arrived in ED. la1 23:41 Tanner Hodge MD is Attending Physician. rt 23:42 Samina Rodriguez, JACLYN is Primary Nurse. kd3 23:44 Triage completed. kd3 23:44 Arm band placed on right wrist. kd3 03/02 00:15 Hand Right 3 View XRAY In Process Unspecified. EDMS 00:27 CT Head C Spine In Process Unspecified. EDMS 01:20 No provider procedures requiring assistance completed. Patient did not have IV access ll3 during this emergency room visit. 01:21 Patient has correct armband on for positive identification. Bed in low position. Call ll3 light in reach. Side rails up X 1. 01:29 Provided Education on: . kd3 01:29 Door closed. Noise minimized. Lights dimmed. Warm blanket given. PO fluids given. kd3 Repositioned patient. Bath given. Cleaned of incontinence. Linen changed. Administered Medications: 01:01 Drug: Acetaminophen PO 1000 mg Route: PO; kd3 01:02 Follow up: Response: No adverse reaction kd3 Medication: 01:21 VIS not applicable for this client. ll3 Outcome: 00:53 Discharge ordered by . rt 01:20 Discharged to retirement. Report called to JACLYN Diggs 3 01:20 Condition: stable 01:20 Discharge instructions given to patient, retirement, Instructed on discharge instructions, follow up and referral plans. Demonstrated understanding of instructions, follow-up care. 01:55 Patient left the ED. kd3 Signatures: Dispatcher [employer] EDMS Sukhdeep Jorge, VAMP MAKER-C VAMP MAKER-Cla1 Magalie Bean RN RN 3 Samina Rodriguez RN RN kd3 Tanner Hodge MD MD rt Villegas, Rebecca 1
--- NOTE | 2023-03-02 00:53 | EDPHYS ---
Physician Documentation [facility] Name: Zain Hope Age: 72 yrs Sex: Male : 1950 Arrival Date: 03/01/2023 Time: 23:37 Bed 5 Private MD: ED Physician Tanner Hodge HPI: 03/02 02:02 This 72 yrs old Male presents to ER via EMS with complaints of Fall Injury. rt 02:02 Patient presents to the ED with head injury after falling while he was trying to put on rt his shoes. He denies any preceding symptoms including syncope. He does have a skin tear to the right hand as well as bruising noted to the forehead. Denies other acute complaints at this time. Symptoms are mild in severity, no other aggravating alleviating factors.. 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 - Social history:: Smoking status: unknown. - Family history:: not pertinent. ROS: 03/02 02:02 Constitutional: Negative for fever, chills, and weight loss, Neck: Negative for injury, rt pain, and swelling, Cardiovascular: Negative for chest pain, palpitations, and edema, Respiratory: Negative for shortness of breath, cough, wheezing, and pleuritic chest pain, Abdomen/GI: Negative for abdominal pain, nausea, vomiting, diarrhea, and constipation. Skin: Positive for Skin care tear. Neuro: Positive for headache, Negative for loss of consciousness. Exam: 02:02 Constitutional: This is a well developed, well nourished patient who is awake, alert, rt and in no acute distress. Neck: Trachea midline, no thyromegaly or masses palpated, and no cervical lymphadenopathy. Supple, full range of motion without nuchal rigidity, or vertebral point tenderness. No Meningismus. Chest/axilla: Normal chest wall appearance and motion. Nontender with no deformity. No lesions are appreciated. Cardiovascular: Regular rate and rhythm with a normal S1 and S2. No gallops, murmurs, or rubs. Normal PMI, no JVD. No pulse deficits. Respiratory: Lungs have equal breath sounds bilaterally, clear to auscultation and percussion. No rales, rhonchi or wheezes noted. No increased work of breathing, no retractions or nasal flaring. Abdomen/GI: Soft, non-tender, with normal bowel sounds. No distension or tympany. No guarding or rebound. No evidence of tenderness throughout. 02:02 Head/face: Hematoma noted to forehead, no other external evidence of trauma. 02:02 Musculoskeletal/extremity: Small skin tear noted to the right hand, no focal areas of tenderness. Vital Signs: 03/01 23:42 BP 173 / 97; Pulse 58; Resp 18; Temp 98.1(O); Pulse Ox 100% on R/A; Weight 65.77 kg; rv1 Height 5 ft. 10 in. ; Pain 6/10; 03/02 00:47 BP 166 / 80; Pulse 55; Resp 17; Pulse Ox 98% on R/A; rv1 01:01 BP 172 / 91; Pulse 53; Resp 16; Pulse Ox 98% on R/A; kd3 03/01 23:42 Body Mass Index 20.81 (65.77 kg, 177.8 cm) rv1 03/01 23:42 Pain Scale: Adult rv1 MDM: 03/01 23:43 Patient medically screened. rt 03/02 02:02 Differential Diagnosis Contusion, intracranial hemorrhage, skull fracture. Data rt reviewed: vital signs, nurses notes, radiologic studies. Independent interpretation of the following test(s) in the Emergency Department CT Scan: My interpretation is No hemorrhage seen on my interpretation of CT scan images. Care significantly affected by the following chronic conditions: Diabetes. Counseling: I had a detailed discussion with the patient and/or guardian regarding: the historical points, exam findings, and any diagnostic results supporting the discharge/admit diagnosis, radiology results, the need for outpatient follow up. 03/01 23:42 Order name: CT Head C Spine rt 03/01 23:42 Order name: Hand Right 3 View XRAY rt Administered Medications: : Drug: Acetaminophen PO 1000 mg Route: PO; kd3 01:02 Follow up: Response: No adverse reaction kd3 Disposition Summary: 03/02/23 00:53 Discharge Ordered Location: Home rt Problem: new rt Symptoms: have improved rt Condition: Stable rt Diagnosis - Contusion of forehead rt - Skin tear to right hand rt Followup: rt - With: Private Physician - When: 2 - 3 days - Reason: Discharge Instructions: - Discharge Summary Sheet rt - Facial or Scalp Contusion rt - Skin Tear rt Forms: - Medication Reconciliation Form rt - Thank You Letter rt - Antibiotic Education rt - Prescription Opioid Use rt - Patient Portal Instructions rt Signatures: Dispatcher [employer] Samina Marie RN RN kd3 Tanner Hodge MD MD rt
[2023-03-02] MEDS ORDERED: ACETAMINOPHEN 500 MG TAB ONE (01:04)
[2023-03-02 02:21] VITALS: TEMP 98.1
[2023-03-02 02:22] VITALS: O2SAT 98
[2023-03-02 02:24] VITALS: BP 172/91
--- NOTE | 2023-03-02 12:04 | RAD REPORT ---
EXAM DESCRIPTION: CT - Head C Spine Mpr Wo Con - 03/02/2023 1:21 am CLINICAL HISTORY: Fall COMPARISON: 05/05/2022 TECHNIQUE: Axial CT of the head obtained from the skull apex to the skull base without contrast. Axi al CT images of the cervical spine obtained from the skull base through the thoracic inlet. Sagittal and coronal reformatted images available. This exam was performed according to our departmental dose- optimization program, which includes automated exposure control, adjustment of the mA and/or kV accor ding to patient size and/or use of iterative reconstruction technique. FINDINGS: CT head: No acute intracranial hemorrhage identified. No mass, mass effect, shift of the midline, abnormal ext ra-axial fluid collection or CT evidence of acute ischemic change identified. The ventricular system and sulcal spaces are mildly enlarged compatible with mild cerebral atrophy. Confluent areas of hyp odensity throughout the supratentorial white matter are nonspecific and may be related to chronic sma ll vessel ischemic change. Large region of encephalomalacia in the right MCA distribution compatible with remote infarction. The visualized paranasal sinuses and mastoid air cells are well aerated. No skull fracture identifi ed. Visualized orbits and globes are unremarkable. Atherosclerotic calcification of the intracranial internal carotid arteries. Contusion in the left frontal scalp soft tissues. Remote left zygomatic ar ch fracture. Cervical CT: Shortening of the cervical lordosis may be secondary to patient position. The atlantoaxial, atlanto dental, and occipitoatlantal intervals are preserved. No fracture identified. Vertebral body height preserved. Prevertebral soft tissues are unremarkable. Mild to moderate multilevel loss of intervertebral disc height with endplate spondylosis, facet arthr opathy, and uncovertebral spurring. Posterior disc osteophyte complex at multiple levels mildly encro ach on the anterior spinal canal. Mild multilevel neural foraminal narrowing. Visualized skull base is intact. No fracture of the visualized facial bones. Visualized mastoid air c ells and paranasal sinuses are well aerated. Visualized thyroid is unremarkable. No cervical lymphadenopathy. No pneumothorax in the visualized lung apices. Right carotid artery stent. Atherosclerotic vascular disease. IMPRESSION: 1. No acute intracranial abnormality identified. 2. No acute fracture or subluxation of the cervical spine. 3. Moderate multilevel degenerative change of the cervical spine. Electronically signed by: Ba Mccollum 03/02/2023 12:42 AM CDT Due to temporary technical issues with the PACS/Fluency reporting system, reports are being signed by the in house radiologist without review as a courtesy to ensure prompt reporting. The interpreting r adiologist is fully responsible for the content of the report.
--- NOTE | 2023-03-02 12:06 | RAD REPORT ---
EXAM DESCRIPTION: RAD - Hand Right 3 View - 03/02/2023 12:14 am CLINICAL HISTORY: PAIN COMPARISON: None. FINDINGS: 3 views of the right hand. No acute fracture or dislocation. Osteopenia. Postoperative agapito nge of the right. Proximal interphalangeal joint. Atherosclerotic vascular calcification. IMPRESSION: 1. No acute fracture or dislocation. Electronically signed by: Ba Mccollum 03/02/2023 12:32 AM CDT Due to temporary technical issues with the PACS/Fluency reporting system, reports are being signed by the in house radiologist without review as a courtesy to ensure prompt reporting. The interpreting r adiologist is fully responsible for the content of the report.
== END 2023-03-02 01:55 | disposition home or self-care (01) ==
LOC: ER 23:37
DX: S00.83XA Contusion of other part of head, initial encounter (principal); S61.411A Laceration without foreign body of right hand, initial encounter; R51.9 Headache, unspecified
CPT/HCPCS: 70450; 72125; 99284

== ENCOUNTER 2024-02-20 12:31 | Emergency (ER) | payer OTHER ==
--- NOTE | 2024-02-20 14:53 | RAD REPORT ---
EXAM DESCRIPTION: CT - CTHCSPWOC - 02/20/2024 12:53 pm CLINICAL HISTORY: fall COMPARISON: Head C Spine Mpr Wo Con dated 03/02/2023; Head C Spine Mpr Wo Con dated 05/05/2022; Head C Spine Mpr Wo Con dated 10/06/2021; Head C Spine Mpr Wo Con dated 07/18/2019 TECHNIQUE: Axial thin cut noncontrast CT images of the head were obtained. Axial thin cut noncontrast CT images of the cervical spine were obtained. Multiplanar reformatted images were generated and reviewed. All CT scans are performed using dose optimization technique as appropriate and may include automated exposure control or mA/KV adjustment according to patient size. FINDINGS: CT HEAD WITHOUT CONTRAST: No acute hemorrhage, hydrocephalus or extra-axial collection is identified.Stable right MCA territory region of cystic encephalomalacia. No areas of brain edema or midline shift. The paranasal sinuses and mastoids are clear.The calvarium is intact. CT CERVICAL SPINE WITHOUT CONTRAST: No fracture or subluxation. Up to moderate spondylotic changes, with xhky-[id number] disc height los s at C4-5 and C5-6. Moderate degrees of neural foraminal narrowing at C5-6 and C6-7 bilaterally. No p revertebral soft tissues swelling is identified. Right carotid stent in place. IMPRESSION: No acute traumatic intracranial or cervical spine findings. Stable chronic findings as above.
--- NOTE | 2024-02-20 16:02 | RAD REPORT ---
EXAM DESCRIPTION: RAD - Ribs Unil W/CXR - 02/20/2024 1:21 pm CLINICAL HISTORY: PAIN COMPARISON: Chest Single View dated 12/17/2020 TECHNIQUE: PA chest x-ray, one-view. Left ribs, 3 views. FINDINGS: Mildly displaced left fourth- seventh rib fractures. No aggressive rib lesion. No underlying pneumothorax, effusion, infiltrate or pulmonary contusion. 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 IMPRESSION: Mildly displaced left fourth- seventh rib fractures.
--- NOTE | 2024-02-20 16:22 | ER ---
Nurse's Notes [facility] Name: Zain Hope Age: 73 yrs Sex: Male : 1950 Arrival Date: 02/20/2024 Time: 12:31 Bed 7 Private MD: Diagnosis: Multiple fractures of ribs, left side Presentation: 02/19 12:33 Chief complaint: EMS states: patient fell yesterday, complaining of left rib pain. ko1 Coronavirus screen: At this time, the client does not indicate any symptoms associated with coronavirus-19. Ebola Screen: No symptoms or risks identified at this time. Initial Sepsis Screen: Does the patient meet any 2 criteria? No. Patient's initial sepsis screen is negative. Does the patient have a suspected source of infection? No. Patient's initial sepsis screen is negative. Risk Assessment: Do you want to hurt yourself or someone else? Patient reports no desire to harm self or others. Onset of symptoms was February 20, 2024. Care prior to arrival: Medication(s) given: Tylenol, 650 mg. Mechanism of Injury: Fall from standing position. Transition of care: patient was received from another setting of care (long-term care facility), [facility]. 12:33 Method Of Arrival: EMS: [facility] ko1 12:33 Acuity: BRYANT 3 ko1 Triage Assessment: 12:35 General: Appears in no apparent distress. uncomfortable, Behavior is calm, cooperative, ko1 appropriate for age. Pain: Complains of pain in left lateral anterior chest. EENT: No deficits noted. Neuro: Level of Consciousness is awake, alert, obeys commands. Cardiovascular: No deficits noted. Respiratory: No deficits noted. GI: No deficits noted. : No deficits noted. Derm: No deficits noted. Musculoskeletal: Reports pain in left ribs. Historical: - Allergies: 12:35 No Known Allergies; ko1 - Home Meds: 12:39 fluoxetine 10 mg Oral capsule 1 cap daily [Active]; fluoxetine 20 mg Oral capsule 1 cap ko1 daily [Active]; hydralazine 25 mg Oral tablet 2 tabs 3 times per day for hypertension [Active]; Keppra 500 mg Oral tablet 1 tabs 2 times per day [Active]; levothyroxine 25 mcg capsule 1 cap daily for hypothyroidism [Active]; losartan 100 mg oral tablet 1 tab daily for hypertension [Active]; metformin 1,000 mg Oral tablet 1 tab 2 times per day for type 2 diabetes mellitus [Active]; metoprolol tartrate 50 mg Oral tablet 1 tab 2 times per day for hypertension [Active]; senna 8.6 mg oral capsule 1 cap once for constipation [Active]; ticagrelor 90 mg oral tablet 1 tab 2 times per day [Active]; - PMHx: 12:35 CAD; CVA; Depression; Diabetes - NIDDM; DYSPHAGIA; GERD; Hyperlipidemia; Hypertension; ko1 Hypothyroidism; 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 - Infectious Disease History:: Denies. - Social history:: Smoking status: Patient denies any tobacco usage or history of. Screenin:37 [facility] ED Fall Risk Assessment (Adult) History of falling in the last 3 months, ko1 including since admission Yes- single mechanical fall (1 pt) Confusion or Disorientation Yes (5 pts) Intoxicated or Sedated No (0 pts) Impaired Gait Yes (1 pt) Mobility Assist Device Used Yes (1 pt) Altered Elimination Yes (1 pt) Score/Fall Risk Level 3 or more points = High Risk Oriented to surroundings, Maintained a safe environment, Educated pt \T\ family on fall prevention, incl call for assistance when getting out of bed, Assessed \T\ reinforced patient's understanding of fall precautions, Provided non-skid footwear, Hourly rounding (assess needs \T\ fall precautionary measures) done, Used ambulatory aids as needed (educated on \T\ assisted with), Used gait belt as appropriate Implemented a Fall Risk Plan of Care, Apply high fall risk patient identification: yellow non skid footwear/ fall signage, Remained w/in arm's length of patient and in sight while toileting, Offered frequent toileting (1:1 observation), Remained with patient while ambulating, Utilized family, sitter, or virtual hydroelectric powerplant supervisor as indicated. Abuse screen: Denies threats or abuse. Denies injuries from another. Nutritional screening: No deficits noted. Tuberculosis screening: No symptoms or risk factors identified. Assessment: 12:37 Reassessment: see triage note. ko1 Vital Signs: 12:33 BP 126 / 72; Pulse 75; Resp 16; Temp 97; Pulse Ox 99% ; ko1 ED Course: 12:33 Patient arrived in ED. ko1 12:33 Domenica Morris, RN is Primary Nurse. ko1 12:35 Jose Maria Malcolm DO is Attending Physician. ms3 12:35 Triage completed. ko1 12:35 Arm band placed on right wrist. Patient placed in an exam room, on a stretcher, on ko1 pulse oximetry, Patient notified of wait time. 12:37 Patient has correct armband on for positive identification. Fall risk band placed. Bed ko1 in low position. Call light in reach. Side rails up X2. Provided Education on: call light, xrays. Pulse ox on. NIBP on. Door closed. Noise minimized. Lights dimmed. Warm blanket given. Pillow given. 12:52 CT Head C Spine In Process Unspecified. EDMS 13:22 Ribs Unil W/CXR In Process Unspecified. EDMS 16:21 Junior Griggs DO is Referral Physician. ms3 Administered Medications: No medications were administered Medication: 12:37 VIS not applicable for this client. ko1 Outcome: 16:21 Discharge ordered by . ms3 Signatures: Dispatcher [employer] EDMS Jose Maria Malcolm DO DO ms3 Domenica Morris, RN RN ko1
--- NOTE | 2024-02-20 16:22 | EDPHYS ---
Physician Documentation [facility] Name: Zain Hope Age: 73 yrs Sex: Male : 1950 Arrival Date: 02/20/2024 Time: 12:31 Bed 7 Private MD: ED Physician Jose Maria Malcolm HPI: 02/19 12:36 This 73 yrs old Male presents to ER via EMS with complaints of fall. ms3 12:36 73-year-old male with past medical history of CVA, coronary artery disease, ms3 hypertension, hyperlipidemia, depression, dysphagia, GERD, diabetes presents to the emergency department for left rib pain status post fall yesterday [facility]. Patient states his pain is a 9/10. Patient denies any alleviating or inciting factors. Historical: - Allergies: 12:35 No Known Allergies; ko1 - Home Meds: 12:39 fluoxetine 10 mg Oral capsule 1 cap daily [Active]; fluoxetine 20 mg Oral capsule 1 cap ko1 daily [Active]; hydralazine 25 mg Oral tablet 2 tabs 3 times per day for hypertension [Active]; Keppra 500 mg Oral tablet 1 tabs 2 times per day [Active]; levothyroxine 25 mcg capsule 1 cap daily for hypothyroidism [Active]; losartan 100 mg oral tablet 1 tab daily for hypertension [Active]; metformin 1,000 mg Oral tablet 1 tab 2 times per day for type 2 diabetes mellitus [Active]; metoprolol tartrate 50 mg Oral tablet 1 tab 2 times per day for hypertension [Active]; senna 8.6 mg oral capsule 1 cap once for constipation [Active]; ticagrelor 90 mg oral tablet 1 tab 2 times per day [Active]; - PMHx: 12:35 CAD; CVA; Depression; Diabetes - NIDDM; DYSPHAGIA; GERD; Hyperlipidemia; Hypertension; ko1 Hypothyroidism; 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 - Infectious Disease History:: Denies. - Social history:: Smoking status: Patient denies any tobacco usage or history of. ROS: 12:36 Constitutional: Negative for fever, and chills. Neck: Negative for injury, pain, and ms3 swelling, Cardiovascular: Negative for chest pain, and palpitations. Respiratory: Negative for shortness of breath, cough, wheezing, and pleuritic chest pain, Abdomen/GI: Negative for abdominal pain, nausea, vomiting, diarrhea, and constipation, 12:36 MS/extremity: Positive for Left-sided rib pain, Exam: 12:36 Constitutional: This is a well developed, well nourished patient who is awake, alert, ms3 and in no acute distress. Chest/axilla: Normal chest wall appearance and motion. Nontender with no deformity. Cardiovascular: Regular rate and rhythm with a normal S1 and S2. No gallops, murmurs, or rubs. Normal PMI, no JVD. No pulse deficits. Respiratory: Lungs have equal breath sounds bilaterally, clear to auscultation and percussion. No rales, rhonchi or wheezes noted. No increased work of breathing, no retractions or nasal flaring. Abdomen/GI: Soft, non-tender, with normal bowel sounds. No distension or tympany. No guarding or rebound. No evidence of tenderness throughout. Vital Signs: 12:33 BP 126 / 72; Pulse 75; Resp 16; Temp 97; Pulse Ox 99% ; ko1 13:30 BP 124 / 78; Pulse 72; Resp 18; Pulse Ox 99% ; ko1 15:30 BP 132 / 74; Pulse 70; Resp 16; Pulse Ox 97% on R/A; ko1 16:30 BP 130 / 72; Pulse 70; Resp 14; Pulse Ox 99% ; ko1 17:52 BP 128 / 74; Pulse 74; Resp 18; Pulse Ox 98% ; ko1 MDM: 12:35 Patient medically screened. ms3 12:36 Differential diagnosis: closed head injury, contusion, fracture, sprain, strain. ms3 17:37 Data reviewed: vital signs, nurses notes, radiologic studies, CT scan, plain films, and ms3 as a result, I will discharge patient. Historians other than the Patient: EMS: [facility]. Care significantly affected by the following chronic conditions: Diabetes, Hypertension. Counseling: I had a detailed discussion with the patient and/or guardian regarding the historical points, exam findings, and any diagnostic results supporting the discharge/admit diagnosis, radiology results, the need for outpatient follow up, to return to the emergency department if symptoms worsen or persist or if there are any questions or concerns that arise at home. Special discussion: I discussed with the patient/guardian in detail that at this point there is no indication for admission to the hospital. It is understood, however, that if the symptoms persist or worsen the patient needs to return immediately for re-evaluation. ED course: Discussed fractures with patient. Patient given incentive spirometer and instruction on use. Patient to follow up with PMD in 2-3 days. All questions answered. Return precautions given to include worsening symptoms, or any other concerns.. 02/19 12:36 Order name: CT Head C Spine; Complete Time: 16:20 ms3 02/19 13:07 Order name: Ribs Unil W/CXR; Complete Time: 16:20 EDMS Administered Medications: No medications were administered Disposition Summary: 02/20/24 16:21 Discharge Ordered Notes: Location: Home ms3 Condition: Stable ms3 Diagnosis - Multiple fractures of ribs, left side ms3 - Fall on same level, unspecified ms3 Followup: ms3 - With: Junior Griggs DO - When: 2 - 3 days - Reason: Recheck today's complaints Discharge Instructions: - Discharge Summary Sheet ms3 - Fall Prevention in the Home, Adult ms3 - Rib Fracture, [id number] ms3 Forms: - Medication Reconciliation Form ms3 - Antibiotic Education ms3 - Prescription Opioid Use ms3 - Patient Portal Instructions ms3 - Leadership Thank You Letter ms3 Prescriptions: - Tramadol 50 mg Oral Tablet - take 1 tablet ORAL route every 8 hours as needed; 12 tablet; Refills: 0, ms3 Product Selection Permitted Signatures: Dispatcher [employer] EDMS Jose Maria Malcolm DO DO ms3 Domenica Morris RN RN ko1 Corrections: (The following items were deleted from the chart) 13:07 12:36 Ribs Left+RAD.[email or web address] ordered. EDMS EDMS 13:23 12:36 Chest Single View+RAD.RAD.BRZ ordered. EDMS EDMS 16:30 16:30 IS+RC.RAD.BRZ ordered. EDMS EDMS
--- NOTE | 2024-02-20 16:22 | ER ---
Nurse's Notes [facility] Name: Zain Hope Age: 73 yrs Sex: Male : 1950 Arrival Date: 02/20/2024 Time: 12:31 Bed 7 Private MD: Diagnosis: Multiple fractures of ribs, left side;Fall on same level, unspecified Presentation: 02/19 12:33 Chief complaint: EMS states: patient fell yesterday, complaining of left rib pain. ko1 Coronavirus screen: At this time, the client does not indicate any symptoms associated with coronavirus-19. Ebola Screen: No symptoms or risks identified at this time. Initial Sepsis Screen: Does the patient meet any 2 criteria? No. Patient's initial sepsis screen is negative. Does the patient have a suspected source of infection? No. Patient's initial sepsis screen is negative. Risk Assessment: Do you want to hurt yourself or someone else? Patient reports no desire to harm self or others. Onset of symptoms was February 20, 2024. Care prior to arrival: Medication(s) given: Tylenol, 650 mg. Mechanism of Injury: Fall from standing position. Transition of care: patient was received from another setting of care (long-term care facility), [facility]. 12:33 Method Of Arrival: EMS: [facility] ko1 12:33 Acuity: BRYANT 3 ko1 Triage Assessment: 12:35 General: Appears in no apparent distress. uncomfortable, Behavior is calm, cooperative, ko1 appropriate for age. Pain: Complains of pain in left lateral anterior chest. EENT: No deficits noted. Neuro: Level of Consciousness is awake, alert, obeys commands. Cardiovascular: No deficits noted. Respiratory: No deficits noted. GI: No deficits noted. : No deficits noted. Derm: No deficits noted. Musculoskeletal: Reports pain in left ribs. Historical: - Allergies: 12:35 No Known Allergies; ko1 - Home Meds: 12:39 fluoxetine 10 mg Oral capsule 1 cap daily [Active]; fluoxetine 20 mg Oral capsule 1 cap ko1 daily [Active]; hydralazine 25 mg Oral tablet 2 tabs 3 times per day for hypertension [Active]; Keppra 500 mg Oral tablet 1 tabs 2 times per day [Active]; levothyroxine 25 mcg capsule 1 cap daily for hypothyroidism [Active]; losartan 100 mg oral tablet 1 tab daily for hypertension [Active]; metformin 1,000 mg Oral tablet 1 tab 2 times per day for type 2 diabetes mellitus [Active]; metoprolol tartrate 50 mg Oral tablet 1 tab 2 times per day for hypertension [Active]; senna 8.6 mg oral capsule 1 cap once for constipation [Active]; ticagrelor 90 mg oral tablet 1 tab 2 times per day [Active]; - PMHx: 12:35 CAD; CVA; Depression; Diabetes - NIDDM; DYSPHAGIA; GERD; Hyperlipidemia; Hypertension; ko1 Hypothyroidism; 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 - Infectious Disease History:: Denies. - Social history:: Smoking status: Patient denies any tobacco usage or history of. Screenin:37 [facility] ED Fall Risk Assessment (Adult) History of falling in the last 3 months, ko1 including since admission Yes- single mechanical fall (1 pt) Confusion or Disorientation Yes (5 pts) Intoxicated or Sedated No (0 pts) Impaired Gait Yes (1 pt) Mobility Assist Device Used Yes (1 pt) Altered Elimination Yes (1 pt) Score/Fall Risk Level 3 or more points = High Risk Oriented to surroundings, Maintained a safe environment, Educated pt \T\ family on fall prevention, incl call for assistance when getting out of bed, Assessed \T\ reinforced patient's understanding of fall precautions, Provided non-skid footwear, Hourly rounding (assess needs \T\ fall precautionary measures) done, Used ambulatory aids as needed (educated on \T\ assisted with), Used gait belt as appropriate Implemented a Fall Risk Plan of Care, Apply high fall risk patient identification: yellow non skid footwear/ fall signage, Remained w/in arm's length of patient and in sight while toileting, Offered frequent toileting (1:1 observation), Remained with patient while ambulating, Utilized family, sitter, or virtual dye range operator as indicated. Abuse screen: Denies threats or abuse. Denies injuries from another. Nutritional screening: No deficits noted. Tuberculosis screening: No symptoms or risk factors identified. Assessment: 12:37 Reassessment: see triage note. ko1 16:48 Reassessment: awaiting transportation from [place]. ko1 Vital Signs: 12:33 BP 126 / 72; Pulse 75; Resp 16; Temp 97; Pulse Ox 99% ; ko1 13:30 BP 124 / 78; Pulse 72; Resp 18; Pulse Ox 99% ; ko1 15:30 BP 132 / 74; Pulse 70; Resp 16; Pulse Ox 97% on R/A; ko1 16:30 BP 130 / 72; Pulse 70; Resp 14; Pulse Ox 99% ; ko1 17:52 BP 128 / 74; Pulse 74; Resp 18; Pulse Ox 98% ; ko1 ED Course: 12:33 Patient arrived in ED. ko1 12:33 Domenica Morris, RN is Primary Nurse. ko1 12:35 Jose Maria Malcolm DO is Attending Physician. ms3 12:35 Triage completed. ko1 12:35 Arm band placed on right wrist. Patient placed in an exam room, on a stretcher, on ko1 pulse oximetry, Patient notified of wait time. 12:37 Patient has correct armband on for positive identification. Fall risk band placed. Bed [facility] in low position. Call light in reach. Side rails up X2. Provided Education on: call light, xrays. Pulse ox on. NIBP on. Door closed. Noise minimized. Lights dimmed. Warm blanket given. Pillow given. 12:52 CT Head C Spine In Process Unspecified. EDMS 13:22 Ribs Unil W/CXR In Process Unspecified. EDMS 16:21 Junior Griggs DO is Referral Physician. ms3 16:30 No provider procedures requiring assistance completed. Patient did not have IV access [facility] during this emergency room visit. 17:30 Awaiting transportation, Awaiting: called [facility]ando, the transportation is coming from [address] and they said it would be about an hour. Administered Medications: No medications were administered Medication: 12:37 VIS not applicable for this client. ko1 Outcome: 16:21 Discharge ordered by . ms3 17:56 Discharged to [facility]. Report called to Christina burnett 17:57 Condition: stable ko1 17:57 Discharge instructions given to patient, penitentiary, Instructed on discharge instructions, follow up and referral plans. medication usage, IS Demonstrated understanding of instructions, follow-up care, medications, IS Prescriptions given X 1, 17:57 Patient left the ED. ko1 Signatures: Dispatcher [employer] EDMS Jose Maria Malcolm DO DO ms3 Domenica Morris, RN RN ko1 Corrections: (The following items were deleted from the chart) : 16:37 Discharged to penitentiary. Report called to Christina lex ko1 16:37 Condition: stable ko1 ko1 16:37 Discharge instructions given to patient, penitentiary, Instructed on discharge ko1 instructions, follow up and referral plans. medication usage, IS Demonstrated understanding of instructions, follow-up care, medications, IS Prescriptions given X 1, ko1
[2024-02-22 17:41] VITALS: BP 128/74; TEMP 97; O2SAT 98
== END 2024-02-20 17:57 | disposition home or self-care (01) ==
LOC: ER 12:31
DX: S22.32XA Fracture of one rib, left side, initial encounter for closed fracture (principal); W18.30XA Fall on same level, unspecified, initial encounter; Y92.129 Unspecified place in nursing home as the place of occurrence of the external cause; E11.9 Type 2 diabetes mellitus without complications; I10 Essential (primary) hypertension; E78.5 Hyperlipidemia, unspecified; Z79.899 Other long term (current) drug therapy
CPT/HCPCS: 70450; 71101; 72125; 99284

== ENCOUNTER 2024-03-01 17:06 | Inpatient (IN) | payer OTHER ==
[2024-03-01] MEDS ORDERED: NA CHLORIDE 0.9% 1,000 ML ONE (17:28)
--- NOTE | 2024-03-01 18:38 | RAD REPORT ---
EXAM DESCRIPTION: CT - Chest For Pe Angio - 03/01/2024 5:59 pm CLINICAL HISTORY: HEMOPTYSIS COMPARISON: Chest Single View dated 03/01/2024; Ribs Unil W/CXR dated 02/20/2024; Stone Protocol dated 12/17/2020 TECHNIQUE: Thin axial CT images of the chest were obtained following administration of 100 mL Isovue 370 IV contrast. Multiplanar reconstructions, and maximum intensity projection reconstructions were generated and reviewed. Exam utilizes a protocol for optimal evaluation of pulmonary arterial tree. All CT scans are performed using dose optimization technique as appropriate and may include automated exposure control or mA/KV adjustment according to patient size. FINDINGS: Pulmonary arteries are normal. No emboli or other suspicious finding. No acute or signific ant aorta findings. No mass or infiltrate in the lung parenchyma. Trace layering left pleural fluid. No pneumothorax. Sequelae of CABG. The heart is not enlarged. Mild hiatal hernia. No abnormal mediastinal or hilar masses or lymphadenopathy seen. No chest wall mass or abnormal axill iary lymphadenopathy. Displaced left lateral 3rd to 7th rib fractures as well as a nondisplaced left ninth rib fracture. IMPRESSION: No evidence of acute central pulmonary emboli. Multiple displaced left rib fractures. Trace layering left pleural effusion versus hemothorax.
--- NOTE | 2024-03-01 18:49 | ER ---
Nurse's Notes [facility] Name: Zain Hope Age: 73 yrs Sex: Male : 1950 Arrival Date: 03/01/2024 Time: 17:06 Bed 4 Private MD: Diagnosis: Hemoptysis Presentation: 03/01 17:04 Chief complaint: EMS states: [facility] CALLED FOR VOMITING BLOOD. BLOOD TINGED db VOMIT. BP 60'S/40'S. PATIENT GIVEN ZOFRAN 4 MG IM. Coronavirus screen: Client denies travel out of the [place] in the last 14 days. At this time, the client does not indicate any symptoms associated with coronavirus-19. Ebola Screen: Patient negative for fever greater than or equal to 101.5 degrees Fahrenheit, and additional compatible Ebola Virus Disease symptoms Patient denies exposure to infectious person. Patient denies travel to an Ebola-affected area in the 21 days before illness onset. No symptoms or risks identified at this time. Initial Sepsis Screen: Does the patient meet any 2 criteria? No. Patient's initial sepsis screen is negative. Does the patient have a suspected source of infection? No. Patient's initial sepsis screen is negative. Risk Assessment: Do you want to hurt yourself or someone else? Patient reports no desire to harm self or others. Onset of symptoms was March 01, 2024. Care prior to arrival: Medication(s) given: zofran 4 mg. 17:04 Method Of Arrival: EMS: [facility] db 17:04 Acuity: BRYANT 2 db Triage Assessment: 17:23 General: Appears in no apparent distress. comfortable, Behavior is calm, cooperative. db Pain: Denies pain. Neuro: Level of Consciousness is awake, alert, obeys commands, Oriented to person. Respiratory: Airway is patent Respiratory effort is even, unlabored, Respiratory pattern is regular, symmetrical. Historical: - Allergies: 17:23 No Known Allergies; db - PMHx: 17:23 CAD; CVA; Depression; Diabetes - NIDDM; DYSPHAGIA; GERD; Hyperlipidemia; Hypertension; db Hypothyroidism; Left 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 - Infectious Disease History:: Denies. - Social history:: Smoking status: Patient denies any tobacco usage or history of. Screenin:15 [facility] ED Fall Risk Assessment (Adult) History of falling in the last 3 months, bp including since admission No falls in past 3 months (0 pts) Confusion or Disorientation No (0 pts) Intoxicated or Sedated No (0 pts) Impaired Gait No (0 pts) Mobility Assist Device Used No (0 pt) Altered Elimination No (0 pt) Score/Fall Risk Level 0 - 2 = Low Risk. Abuse screen: Denies threats or abuse. Denies injuries from another. Nutritional screening: No deficits noted. Tuberculosis screening: No symptoms or risk factors identified. Assessment: 17:30 General: Appears in no apparent distress. Behavior is calm, cooperative, appropriate bp for age. Pain: Denies pain. 18:15 Reassessment: Patient appears in no apparent distress at this time. Patient is alert, bp oriented x 3, equal unlabored respirations, skin warm/dry/pink. 19:00 General: Appears in no apparent distress. Behavior is calm, cooperative, appropriate cp4 for age. Pain: Denies pain. Neuro: Level of Consciousness is awake, alert, obeys commands, Oriented to person, place, time, situation. Cardiovascular: No deficits noted. Respiratory: No deficits noted. 20:00 Reassessment: No changes from previously documented assessment. Patient and/or family cp4 updated on plan of care and expected duration. Pain level reassessed. Patient is alert, oriented x 3, equal unlabored respirations, skin warm/dry/pink. 21:00 Reassessment: No changes from previously documented assessment. Patient and/or family cp4 updated on plan of care and expected duration. Pain level reassessed. Patient is alert, oriented x 3, equal unlabored respirations, skin warm/dry/pink. 22:00 Reassessment: Patient appears in no apparent distress at this time. No changes from cp4 previously documented assessment. Patient and/or family updated on plan of care and expected duration. Pain level reassessed. 22:35 General: Appears in no apparent distress. Pain: Denies pain. Neuro: No deficits noted. cp4 Cardiovascular: No deficits noted. Respiratory: No deficits noted. Vital Signs: 17:04 Pulse 85; Resp 18; Temp 98.1; Pulse Ox 90% on R/A; Weight 59.87 kg; Height 5 ft. 10 in. db ; 17:13 BP 100 / 56; Pulse 68; Resp 18; Temp 98.2; Pulse Ox 93% ; bp 18:14 BP 111 / 60; Pulse 68; Resp 13; Pulse Ox 100% ; bp 19:00 BP 119 / 65; Pulse 67; Resp 16; Pulse Ox 100% ; cp4 20:00 BP 123 / 61; Pulse 62; Resp 14; Pulse Ox 100% ; cp4 21:00 BP 116 / 65; Pulse 67; Resp 15; Pulse Ox 100% ; cp4 22:00 BP 125 / 61; Pulse 69; Resp 14; Pulse Ox 100% ; cp4 17:04 Body Mass Index 18.94 (59.87 kg, 177.8 cm) db ED Course: 17:08 Patient arrived in ED. ec2 17:08 Celestine Win MD is Attending Physician. ec2 17:11 Jeffrey Cross, JACLYN is Primary Nurse. bp 17:12 Inserted saline lock: 20 gauge in right antecubital area, using aseptic technique. bp Blood collected. Flushed with 10 mL NS. 17:23 Triage completed. db 17:23 Arm band placed on Patient placed in an exam room. db 17:59 CT Chest For PE Angio In Process Unspecified. EDMS 18:15 Patient has correct armband on for positive identification. bp 18:47 Paul Collado MD is Hospitalizing Provider. ec2 18:48 Jayden Collado MD is Hospitalizing Provider. ec2 22:29 No provider procedures requiring assistance completed. Patient admitted, IV remains in cp4 place. 22:29 Provided Education on: admission. cp4 Administered Medications: 17:33 Drug: NS 0.9% IV 1000 ml IV at 1 bolus Per protocol; 1000 mL bolus Route: IV; Rate: 1 iw bolus; Site: right antecubital; 19:00 Follow up: Response: No adverse reaction; IV Status: Completed infusion cp4 19:59 Drug: Ondansetron IVP 4 mg IVP once; over 2 minutes Route: IVP; Site: right antecubital;bp 22:36 Follow up: Response: No adverse reaction cp4 Medication: 22:30 VIS not applicable for this client. cp4 Outcome: 18:48 Decision to Hospitalize by Provider. ec2 22:29 Admitted to Med/surg accompanied by tech, via stretcher, with chart, cp4 22:29 Condition: stable 22:29 Instructed on the need for admit, 22:50 Patient left the ED. sb4 Signatures: Dispatcher [employer] Melody Smyth RN RN iw Peltier, Brian, RN RN bp Benton, Danielle, RN RN db Brown, Sophia, PACarina PACarina sb4 Celestine Win MD MD ec2 Brenda Rosa cp4 Corrections: (The following items were deleted from the chart) 17:23 17:23 Allergies: Aspirin; rosa elena cuba
--- NOTE | 2024-03-01 18:49 | EDPHYS ---
Physician Documentation [facility] Name: Zain Hope Age: 73 yrs Sex: Male : 1950 Arrival Date: 03/01/2024 Time: 17:06 Bed 4 Private MD: ED Physician Celestine Win HPI: 03/01 17:10 This 73 yrs old Male presents to ER via Unassigned with complaints of ec2 hemoptysis. 17:10 Patient returns with a second bout of hemoptysis. Brought in from [facility] EMS ec2 also witnessed hemoptysis. No difficulty breathing. Some reported documented soft blood pressures. Patient with no additional new complaints. I recently saw him earlier and had also noted hemoptysis. . Historical: - Allergies: 17:23 No Known Allergies; db - PMHx: 17:23 CAD; CVA; Depression; Diabetes - NIDDM; DYSPHAGIA; GERD; Hyperlipidemia; Hypertension; db Hypothyroidism; Left 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 - Infectious Disease History:: Denies. - Social history:: Smoking status: Patient denies any tobacco usage or history of. ROS: 17:10 Constitutional: as per hpi ec2 Exam: 17:10 Constitutional: GEN: NAD Head: atraumatic Eyes: EOMI Ears: External ears are ec2 normal. CV: regular rate LUNGS: no respiratory distress ABD: non-distended SKIN: no evidence of rashes MSK: no evidence of trauma Vital Signs: 17:04 Pulse 85; Resp 18; Temp 98.1; Pulse Ox 90% on R/A; Weight 59.87 kg; Height 5 ft. 10 in. db ; 17:13 BP 100 / 56; Pulse 68; Resp 18; Temp 98.2; Pulse Ox 93% ; bp 18:14 BP 111 / 60; Pulse 68; Resp 13; Pulse Ox 100% ; bp 19:00 BP 119 / 65; Pulse 67; Resp 16; Pulse Ox 100% ; cp4 20:00 BP 123 / 61; Pulse 62; Resp 14; Pulse Ox 100% ; cp4 21:00 BP 116 / 65; Pulse 67; Resp 15; Pulse Ox 100% ; cp4 22:00 BP 125 / 61; Pulse 69; Resp 14; Pulse Ox 100% ; cp4 17:04 Body Mass Index 18.94 (59.87 kg, 177.8 cm) db MDM: 17:09 Patient medically screened. ec2 17:10 Data reviewed: vital signs. ED course: Patient arrives today for evaluation of ec2 hemoptysis. Examination remarkable for well-appearing nontoxic individual. I recently saw the patient several hours ago and had normal labs. Had a CBC that shows slight anemia, renal dysfunction. Patient with similar findings on previous workup. Will obtain IV status and obtain CT scan of the chest and give the patient additional crystalloid for the reported soft blood pressures. Anticipate that we will observe him overnight as well. . 17:52 ED course: EKG independently reviewed and interpreted by me, shows normal sinus rhythm, ec2 rate of 61, no acute ST segment elevations, intervals are nonconcerning. . 18:43 ED course: CT scan of the chest shows known previous rib fractures from his previous ec2 fall. Ultimately will obstipation for this hemoptysis. Patient is hemodynamically stable, no evidence of PE, no evidence of infection. . 03/01 20:20 Order name: CBC with Automated Diff EDMS / 20:20 Order name: CBC with Automated Diff EDMS / 20:20 Order name: Comprehensive Metabolic Panel EDMS 03/01 20:20 Order name: Comprehensive Metabolic Panel EDMS 03/01 17:09 Order name: CT Chest For PE Angio; Complete Time: 18:42 ec2 /02 20:20 Order name: Chest Single View EDMS / 20:20 Order name: Chest Single View EDMS / 17:09 Order name: EKG; Complete Time: 17:10 ec2 03/01 17:09 Order name: Cardiac monitoring; Complete Time: 17:12 ec2 03/01 17:09 Order name: EKG - Nurse/Tech; Complete Time: 17:50 ec2 03/01 17:09 Order name: IV Saline Lock; Complete Time: 17:12 ec2 03/01 17:09 Order name: Labs collected and sent; Complete Time: 17:12 ec2 02 17:09 Order name: O2 Per Protocol; Complete Time: 17:12 ec2 02 17:09 Order name: O2 Sat Monitoring; Complete Time: 17:12 ec2 Administered Medications: 17:33 Drug: NS 0.9% IV 1000 ml IV at 1 bolus Per protocol; 1000 mL bolus Route: IV; Rate: 1 iw bolus; Site: right antecubital; 19:00 Follow up: Response: No adverse reaction; IV Status: Completed infusion cp4 19:59 Drug: Ondansetron IVP 4 mg IVP once; over 2 minutes Route: IVP; Site: right antecubital;bp 22:36 Follow up: Response: No adverse reaction cp4 Disposition Summary: 03/01/24 18:48 Hospitalization Ordered Notes: Hospitalization Status: Inpatient Admission ec2 Provider: Jayden Collado ec2 Location: Telemetry/MedSurg (observation) ec2 Condition: Stable ec2 Problem: new ec2 Symptoms: are unchanged ec2 Bed/Room Type: Standard ec2 Room Assignment: 210(03/01/24 20:23) cg Diagnosis - Hemoptysis ec2 Forms: - Medication Reconciliation Form ec2 - SBAR form ec2 - Leadership Thank You Letter ec2 Signatures: Dispatcher [employer] Melody Smyth RN RN iw Sally Anaya RN RN cg Jeffrey Cross RN RN bp Benton, Danielle, RN RN db Celestine Win MD MD ec2 Brenda Rosa cp4 Corrections: (The following items were deleted from the chart) 17:23 17:23 Allergies: Aspirin; rosa elena cuba 20:23 18:48 ec2 cg
[2024-03-01] MEDS ORDERED: ONDANSETRON 4 MG/2 ML VIAL ONE (19:57)
[2024-03-01] MEDS ORDERED: ONDANSETRON 4 MG/2 ML VIAL IV PRN (20:12)
--- NOTE | 2024-03-01 20:19 | P.HP ---
Certification for Inpatient Patient admitted to: Observation With expected LOS: <2 Midnights Practitioner: I am a practitioner with admitting privileges, knowledge of patient current condition, hospital course, and medical plan of care. Services: Services provided to patient in accordance with Admission requirements found in Title 42 Section 412.3 of the Code of Federal Regulations Patient History Date of Service: 03/01/24 Reason for admission: Hemoptysis left-sided rib fracture History of Present Illness: Patient is 73 years of age lives in a prison admitted with recurrent hemoptysis he was here in the emergency room this morning was discharged came back again was sent because of hemoptysis patient has multiple fractures of his ribs on the left side he had fallen recently not complaining of a little nausea at his baseline he is able to walk and needed he had a stroke affecting the left side patient denies any previous history of hemoptysis history of previous tobacco abuse Allergies No Known Allergies Allergy (Unverified 03/01/24 20:20) Home Medications: Acetaminophen 325 mg PO Q4H PRN 12/18/20 Aspirin 81 mg PO DAILY 12/18/20 Atorvastatin Calcium [Lipitor] 80 mg PO BEDTIME 12/18/20 Famotidine 20 mg PO DAILY 12/18/20 Fluoxetine HCl 10 mg PO DAILY 12/18/20 Insulin Glargine,Hum.rec.anlog [Lantus Solostar] 10 units SQ BID 12/18/20 Levothyroxine Sodium 25 mcg PO DAILY 12/18/20 Losartan Potassium 0.5 tab DAILY 12/18/20 Metformin HCl 1 tab DAILY 12/18/20 Sennosides [Senna] 8.6 mg PO DAILY 12/18/20 Ticagrelor [Brilinta*] 1 tab BID 12/18/20 Tramadol HCl [Ultram] 2 tab Q12H PRN 12/18/20 levETIRAcetam [Keppra] 1 tab BID 12/18/20 ondansetron HCL [Zofran] 1 tab Q8H PRN 12/18/20 Atorvastatin Calcium [Lipitor] 40 mg PO BEDTIME #30 tab 12/19/20 - Past Medical/Surgical History -: T2DM -: CAD MIx2 -: CVA -: HTN -: HLD -: hypothyroidism -: CABG x 2 - Social History Alcohol use: No CD- Drugs: No Caffeine use: No Review of Systems 10-point ROS is otherwise unremarkable Physical Examination - Vital Signs Temperature: 98.1 F Blood Pressure: 111/60 Pulse: 85 Respirations: 18 Pulse Ox (%): 90 - Physical Exam General: Alert, Oriented x3 Respiratory: Clear to auscultation bilaterally, Diminished Cardiovascular: No edema, Regular rate/rhythm, Normal S1 S2 Gastrointestinal: Normal bowel sounds, Soft and benign, Non-distended Musculoskeletal: No clubbing, No swelling Integumentary: No rashes, No breakdown Neurological: Other (Patient has weakness on his left side) Assessment and Plan - Problems (Diagnosis) (1) Hemoptysis Current Visit: Yes Status: Acute Plan: Patient is 73 years of age prison resident with a history of stroke admitted with a fall left-sided rib fractures and hemoptysis CT scan is clear there is no obvious lung mass prior history of tobacco abuse in addition patient has acute on chronic renal failure mild anemia he was here in the morning was discharged he was came back again will admit for observation for now with IV fluids some bronchodilators patient's hemoptysis is probably with some chest contusion from his multiple fractured ribs he is also little hypoxic start patient with some oxygen and repeat chest x-ray tomorrow possible discharge patient is on Brilinta Discharge Plan: Assisted Plan to discharge in: 24 Hours - Advance Directives Does patient have a Living Will: No Does patient have a Durable POA for Healthcare: No
[2024-03-01] MEDS ORDERED: GLUCAGON 1 MG/VIAL IM PRN (20:20)
[2024-03-01] MEDS ORDERED: D50W 25 GM/50 ML SYRINGE IV PRN (20:20)
[2024-03-01] MEDS ORDERED: D10W 125 ML IV PRN (20:22)
[2024-03-01] MEDS: INSULIN REGULAR (HUMAN) 100 UNIT/ML SQ SCH (21:00)
[2024-03-01 23:06] VITALS: BMI 18.9
[2024-03-02] MEDS: NA CHLORIDE 0.9% 1,000 ML IV SCH (00:16)
[2024-03-02] MEDS: IPRATROPIUM BROM 0.5MG/2.5ML NEB SCH (01:00)
[2024-03-02 04:44] LABS: Absolute Lymphocytes (CBC) 1.4 K/uL (0.7-4.9); Absolute Monocytes 0.4 K/uL (0.1-1.3); Absolute Neutrophil 6.9 K/uL (1.8-8.0); Basophils % 0.1 % (0-1.3); Eosinophils % 0.1 % (0-4.4); Hematocrit 20.2 % (39.6-49.0); Hemoglobin 6.6 g/dL (13.6-17.9); MCH 26.2 pg (27.0-35.0); MCHC 32.7 g/dL (32.0-36.0); MPV 7.7 fL (7.6-11.3); Monocytes % 4.7 % (3.3-12.3); Neutrophils % 79.1 % (41.7-73.7); Platelets 257 thou/uL (152-406); RBC Red Blood Cell Count 2.53 M/uL (4.33-5.43); Red Cell Distribution Width 18.5 % (12.1-15.2)
[2024-03-02 05:29] LABS: AST/SGOT 11 U/L (15-37); Albumin 2.8 g/dL (3.4-5.0); Albumin/Globulin Ratio 0.8 (1.1-1.8); Alkaline Phosphatase 73 U/L (45-117); BUN Blood Urea Nitrogen 45 mg/dL (7-18); Bicarbonate 21 mEq/L (21-32); Bilirubin Total 0.4 mg/dL (0.2-1.0); Globulin 3.4 g/dL (2.3-3.5); Glomerular Filtration Rate 36 ml/min (=/>90); Glucose Level 96 mg/dL (74-106); Protein, Total 6.2 g/dL (6.4-8.2); Sodium Level 137 mEq/L (136-145)
[2024-03-02 06:04] LABS: Anion Gap 10.7 mEq/L (5.0-15.0); Potassium 5.7 mEq/L (3.5-5.1)
[2024-03-02 06:05] LABS: ALT/SGPT < 14 U/L (16-61)
[2024-03-02] MEDS: MORPHINE 2 MG/ML SYR IV PRN (06:24)
--- NOTE | 2024-03-02 07:43 | P.PN ---
Date of Service: 03/02/24 Subjective: reports vomiting/coughing up dark red blood in large volumes that started yesterday. Thinks it was more blood than phlegm unable to discern if more vomiting vs coughing up blood but sounds more like vomiting from description. reports some left-sided chest discomfort near fractured ribs. +abdominal discomfort denies any prior bleeding denies any worsening pains after fall last night last episode of bloody output at assisted per patient ROS: 10 point ROS as noted above, otherwise negative Physical Exam: GEN: Alert, oriented1-2, NAD HEENT: Normal conjunctiva, sclera anicteric, pale appearing CV: Regular rate and rhythm, trace edema Pulm: Nonlabored respirations on room air, diminished bilaterally ABD: Soft, mild deep tenderness in epigastrium Integumentary: left hip ecchymosis POA Neuro: left sided weakness vitals reviewed Problem List: Hematemesis vs hemoptysis acute blood loss anemia secondary to presumed GI bleed Multiple displaced left rib fractures POA Trace layering pleural effusion vs hemothorax VONNIE, prerenal Hyperkalemia s/p fall (03/01); recurrent falls NIDDM2 GERD, H/oh Schatzki's ring, mild (noted at time of PEG placement in 2019) HLD HTN Hypothyroidism Depression Hx CVA with left sided deficits (large R MCA infarct 2018) hx CAD s/p CABG h/o R common carotid artery stent (2018) h/o systolic CHF, chronic (EF: 40% 2019) h/o prior PEG after CVA, now removed Hematemesis, hemoptysis ?GI bleed Multiple displaced left rib fractures POA Trace layering pleural effusion vs hemothorax unclear etiology Came from assisted - reports vomiting/coughing up dark red blood in large volumes that started yesterday. Thinks it was more blood than phlegm. Was hypotensive at the time 60/40s per EMR. unable to discern if more vomiting vs coughing up blood but patient states he would cough and cough, then caused him to throw up dark blood Had been seen a earlier in the day in ED for nausea/vomiting with blood- tinged sputum During initial episode patient felt like he overate, felt bloated/distended and subsequently felt nauseous which triggered emesis. Denies previous history of hemopytsis/hematemesis prior to this episode however all labs here have shown anemia CTA chest (8/2): Trace layering pleural effusion vs hemothorax. Multiple displaced left rib fractures. No PE. CXR (03/02): several minimally displaced left lateral rib fractures. No measu rable pneumothorax. Lungs grossly clear. rib fractures from fall on 02/20/24 hgb down 8.9 -> 6.6 (03/02) 1 uPRBC ordered (03/02) check H&H after transfusion given 1L NS IVF bolus in ED. takes brilinta at home; hold for now given bleeding and anemia NPO for now. monitor closely. start protonix BID VONNIE Hyperkalemia creatinine 2.11 -> 1.93 (03/02) unknown baseline , ~1.5 estimated continue IV fluids Nephrology consulted Continue to monitor renal function s/p fall (03/01); recurrent falls sustained another fall last night ~2325 shortly after admission. Found on floor face first by nursing staff after hearing loud slam. BP 100/58 at the time, HR 64, 98%SPO2 on room air. No new visible injuries noted after fall. Has bruising to left hip POA prior to fall. Denies an head pain, no tenderness when asked what he hurt, he responded with "the wall" also had fall 1-2 weeks ago at [facility] resulting in mildly displaced left 4th-7th rib fractures. Fall precautions pain control PT consult once more stable Hypertension hold antihypertensives for now given low-normal BP NIDDM2 accu-cheks, SSI GERD Hyperlipidemia Hypothyroidism Depression Hx CVA with left sided deficits (large R MCA infarct 2019) hx CAD s/p CABG confirm home meds, restart as appropriate hold brilinta for now VTE: SCDs Code: Full Dispo: back to [place] , ~3 days Time Spent Managing Pts Care (In Minutes): 51
[2024-03-02] MEDS ORDERED: NA CHLORIDE 0.9% 250 ML IV SCH (08:00)
--- NOTE | 2024-03-02 08:33 | RAD REPORT ---
EXAM DESCRIPTION: RAD - Chest Single View - 03/02/2024 6:06 am CLINICAL HISTORY: Rib fractures and hemoptysis Chest pain. COMPARISON: Chest Single View dated 03/01/2024; Chest Single View dated 12/17/2020; Chest Single View d ated 10/30/2018; CHEST SINGLE VIEW dated 07/18/2015; Chest For Pe Angio dated 03/01/2024 FINDINGS: Portable technique limits examination quality. The lungs are grossly clear. The heart is normal in size. Sternotomy wires are present.Several minima lly displaced left lateral rib fractures are present. No measurable pneumothorax.
[2024-03-02] MEDS ORDERED: SODIUM CHLORIDE 0.9% 10ML INJ IV PRN (08:48)
[2024-03-02] MEDS: PANTOPRAZOLE 40 MG INJ IVP SCH (09:00)
[2024-03-02] MEDS: D5 0.45 NS 1,000 ML IV SCH (14:21)
--- NOTE | 2024-03-02 16:25 | CON ---
Date of Consultation: 03/02/2024 Reason For Consultation: Elevated BUN and creatinine, fluid management. History Of Present Illness: This is a 73-year-old gentleman, shelter resident, came to the hospital with hemoptysis/hematemesis. The patient found to have low blood pressure and low hemoglobin. The patient found to have elevation in BUN and creatinine. For that reason, we have been consulted. Upon arrival to the hospital, creatinine 1.9. Reviewing the record for the patient, the patient's creatinine back in November 1.8 with GFR of 38. The patient been in the shelter and been on losartan and metformin. No other insulting medication. The patient received blood transfusion today. Past Medical History: Includes: 1. Hypertension. 2. Diabetes, complicated with neuropathy. 3. CVA with weakness. 4. Dementia. 5. CAD status post CABG. Past Surgical History: Includes: 1. CABG. 2. Chronic kidney disease. Home Medications: Include Tylenol, aspirin, atorvastatin, insulin, levothyroxine, losartan, metformin, Brilinta, tramadol, Keppra, Zofran, atorvastatin. Social History: Denied smoking, denied drinking, denied drugs abuse. Review of Systems: Head and Neck: No red eye. No ear pain. GI: No nausea, no vomiting. : No polyuria, no dysuria, no hematuria. Sample Dye Mixer: Not applicable. Respiratory: No shortness of breath. Cardiovascular: No chest pain. Endocrine: No polydipsia. Skin: No rash. Neuro: Dementia. Has left-side weakness. Musculoskeletal: Generalized body ache. Physical Examination: Vital Signs: Blood pressure of 153/67, pulse of 69, afebrile. Chest: Clear to auscultation. Heart: S1, S2. Systolic murmur. Abdomen: Soft, nontender. Extremities: No edema. Neurologic: Alert. Left-sided weakness. Laboratory Data: Chest x-ray, no cardiomegaly, no congestion. Sodium 137, potassium 5.7, bicarb 21, BUN 45, creatinine 1.9, trending down GFR of 36. WBC 8.7, hemoglobin 6.6. Current Medications: The patient on include Zofran, pantoprazole, morphine. Assessment And Plan: Acute kidney injury, mostly secondary to prerenal, superimposed with ARB, complicated with hyperkalemia on chronic kidney disease, baseline creatinine 1.9 with GFR of 38 as of November 2022. 1. I am going to start hydrating the patient and we will monitor. The patient just exposed to contrast yesterday. We will continue hydration. 2. Hypertension with the presence of acute kidney injury. I am going to hold any ARB for the time being, especially with the presence of hyperkalemia. 3. Hyperkalemia. We will start gentle hydration and we will monitor. 4. Hemostasis, as by primary. Continue blood transfusion p.r.n. with the presence of acute kidney injury to rule out pulmonary, renal. 5. Diabetes, as by primary. 6. Questionable GI bleed. Continue p.r.n. transfusion. Continue PPI. Time spent examining the patient [id number] reviewing data lab and the radiology placing orders discussing the case with the patient discussing the case with the logistics team lead including hospitalist and nursing staff more than 55 minutes MARY Voice ID: [id number] Report ID: [id number] MARIA EUGENIA
--- NOTE | 2024-03-02 17:16 | RAD REPORT ---
EXAM DESCRIPTION: US - Renal Ultrasound-Complete - 03/02/2024 4:48 pm CLINICAL HISTORY: VONNIE COMPARISON: <Comparisons> FINDINGS: Both kidneys demonstrate mildly increased echogenicity. The right kidney measures 9.4 x 4.7 x 4.1 cm. No hydronephrosis, focal mass or perinephric fluid. The left kidney measures 9.8 x 5.3 x 4.4 cm. No hydronephrosis, focal mass or perinephric fluid. The urinary bladder is incompletely distended without gross abnormality seen. IMPRESSION: Increased echogenicity of both kidneys indicating underlying medical renal disease.
[2024-03-02 17:33] LABS: Hematocrit 27.4 % (39.6-49.0); Hemoglobin 8.8 g/dL (13.6-17.9)
[2024-03-02] MEDS: levETIRAcetam 500 MG TAB PO SCH (20:50)
[2024-03-02] MEDS: ATORVASTATIN 10 MG TAB PO SCH (20:50)
[2024-03-03 06:38] LABS: Absolute Eosinophils 0.2 K/uL (0-0.5); Absolute Lymphocytes (CBC) 1.2 K/uL (0.7-4.9); Absolute Monocytes 0.4 K/uL (0.1-1.3); Absolute Neutrophil 5.8 K/uL (1.8-8.0); Basophils % 0.4 % (0-1.3); Eosinophils % 2.4 % (0-4.4); Hematocrit 25.9 % (39.6-49.0); Hemoglobin 8.5 g/dL (13.6-17.9); Lymphocytes % 16.1 % (15.3-44.8); MCH 26.7 pg (27.0-35.0); MCHC 32.8 g/dL (32.0-36.0); MCV 81.5 fL (80-100); MPV 8.1 fL (7.6-11.3); Neutrophils % 76.1 % (41.7-73.7); Percent Reticulocyte Count 1.15 % (0.4-2.05); Platelets 230 thou/uL (152-406); RBC Red Blood Cell Count 3.18 M/uL (4.33-5.43); Red Cell Distribution Width 19.1 % (12.1-15.2)
[2024-03-03 06:49] LABS: Albumin/Globulin Ratio 0.9 (1.1-1.8); Alkaline Phosphatase 83 U/L (45-117); BUN Blood Urea Nitrogen 28 mg/dL (7-18); Bicarbonate 24 mEq/L (21-32); Bilirubin Direct 0.2 mg/dL (0-0.2); Bilirubin Indirect, Calculated 0.5 mg/dL (0.2-0.8); Bilirubin Total 0.7 mg/dL (0.2-1.0); Creatine Phosphokinase 49 U/L (39-308); Globulin 3.4 g/dL (2.3-3.5); Glomerular Filtration Rate 46 ml/min (=/>90); Glucose Level 106 mg/dL (74-106); Phosphorus 2.3 mg/dL (2.5-4.9); Protein, Total 6.4 g/dL (6.4-8.2); Sodium Level 139 mEq/L (136-145); Uric Acid 6.7 mg/dL (3.5-7.2)
[2024-03-03 06:51] LABS: ALT/SGPT < 14 U/L (16-61); AST/SGOT < 10 U/L (15-37)
[2024-03-03] MEDS: FLUOXETINE 20 MG CAP PO SCH (08:47)
[2024-03-03] MEDS: FLUOXETINE 10 MG CAP PO SCH (08:47)
--- NOTE | 2024-03-03 10:01 | P.PN ---
Date of Service: 03/03/24 Subjective: feeling a little better today reports some left sided chest discomfort, improving denies further episodes of bloody emesis states last BM was prior to admission tolerating liquids without issues ROS: 10 point ROS as noted above, otherwise negative Physical Exam: GEN: Alert, orientedx2, NAD, pale CV: Regular rate and rhythm, trace edema Pulm: Nonlabored respirations on room air, diminished bilaterally ABD: Soft, mild deep tenderness in epigastrium Integumentary: left hip ecchymosis POA Neuro: left sided weakness vitals reviewed Problem List: Hematemesis; acute blood loss anemia secondary to presumed GI bleed Multiple displaced left rib fractures POA Trace layering pleural effusion vs hemothorax VONNIE, prerenal Hyperkalemia, improved s/p fall (03/01); recurrent falls NIDDM2 GERD, H/oh Schatzki's ring, mild (noted at time of PEG placement in 2018) HLD HTN Hypothyroidism Depression 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 Thinks it was more blood than phlegm. Was hypotensive at the time 60/40s per EMR. CTA chest (03/01): Trace layering pleural effusion vs hemothorax. Multiple displaced left rib fractures. No PE. CXR (03/02): several minimally displaced left lateral rib fractures. No measurable pneumothorax. Lungs grossly clear. rib fractures from fall on 02/20/24 hgb down 8.9 -> 6.6 (03/02) s/p 1 uPRBC (03/02) repeat hgb 8.8 post transfusion (03/02). Hgb stable in 8s for now hold home brilinta for now given bleeding and anemia start CLD 8/4 AM recheck h/h this evening, if stable, will consider advancing diet tomorrow. continue protonix BID VONNIE, prerenal Hyperkalemia, improved unknown baseline , ~1.5 estimated continue IV fluids Nephrology consulted Continue to monitor renal function creatinine improving s/p fall (03/01); recurrent falls sustained another fall last night ~2325 shortly after admission. Found on floor face first by nursing staff after hearing loud slam. BP 100/58 at the time, HR 64, 98%SPO2 on room air. No new visible injuries noted after fall. Has bruising to left hip POA prior to fall. Denies an head pain, no tenderness when asked what he hurt, he responded with "the wall" also had fall 1-2 weeks ago at [place] resulting in mildly displaced left 4th-7th rib fractures. Fall precautions pain control PT consulted Hypertension hold antihypertensives for now given low-normal BP NIDDM2 accu-cheks, SSI GERD Hyperlipidemia Hypothyroidism Depression Hx CVA with left sided deficits (large R MCA infarct 2019) hx CAD s/p CABG confirm home meds, restart as appropriate hold brilinta for now VTE: SCDs Code: Full Dispo: back to [place] , ~2 days Time Spent Managing Pts Care (In Minutes): 38
--- NOTE | 2024-03-03 13:05 | PN ---
Date of Progress Note: 03/03/2024 Subjective: The patient was admitted to the hospital with symptomatic anemia. The patient transfuse d yesterday. The patient had acute kidney injury secondary to prerenal. Patient was started on hydr ation. Kidney function has been improved. Objective: Vital Signs: Blood pressure 140/66, pulse of 85, afebrile. Chest: Clear to auscultation. Heart: S1, S2. Regular. Abdomen: Soft, nontender. Extremity: No edema. Neurologic: Alert. No focality. Laboratory Data: Hemoglobin 8.5. Sodium 139, potassium 5, bicarb 24, BUN 28, creatinine 1.5, GFR 46 , uric acid 6.7, calcium 8.7, phosphorus 2.3. Serology is still pending. TSH 2.9. Serum protein el ectrophoresis pending. PTH 77. Urinalysis still pending. Current Medications: The patient on, it includes atorvastatin, Keppra, breathing treatment, IV fluid , D5 half. Assessment And Plan: 1.Acute kidney injury secondary to prerenal, secondary to GI loss, superimposed with contrast exposu re yesterday. I am going to continue the patient on hydration and we will follow up the patient. 2.Hyponatremia, depletional, recovered. 3.Hyperkalemia secondary to GI bleed and renal failure, recovered, resolved. 4.GI bleed, as by Primary. JOSEFINA/TEDDY Voice ID: [id number] Report ID: [id number]
[2024-03-03 19:02] LABS: Rheumatoid Factor NEG (NEG)
[2024-03-03 19:42] LABS: Ferritin 26.4 ng/mL (26-388); Transferrin 199 mg/dL (200-360)
[2024-03-04 06:39] LABS: Albumin 2.7 g/dL (3.4-5.0); Anion Gap 7.8 mEq/L (5.0-15.0); Magnesium 1.8 mg/dL (1.6-2.4); Phosphorus 2.9 mg/dL (2.5-4.9); Potassium 4.8 mEq/L (3.5-5.1)
[2024-03-04 07:06] LABS: Hematocrit 24.6 % (39.6-49.0); Hemoglobin 8.2 g/dL (13.6-17.9); MCH 26.8 pg (27.0-35.0); MCHC 33.4 g/dL (32.0-36.0); MCV 80.3 fL (80-100); MPV 7.9 fL (7.6-11.3); Platelets 230 thou/uL (152-406); RBC Red Blood Cell Count 3.06 M/uL (4.33-5.43); Red Cell Distribution Width 18.9 % (12.1-15.2)
--- NOTE | 2024-03-04 09:47 | P.PN ---
Date of Service: 03/04/24 Subjective: feeling better today appetite improving; tolerating diet without issues no further episodes of bloody emesis breathing comfortably on room air ROS: 10 point ROS as noted above, otherwise negative Physical Exam: GEN: Alert, orientedx3, NAD, pale CV: Regular rate and rhythm, trace edema Pulm: Non-labored respirations on room air, diminished bilaterally ABD: Soft, mild deep tenderness in epigastrium Integumentary: left hip ecchymosis POA Neuro: left sided weakness vitals reviewed Problem List: Hematemesis; acute blood loss anemia secondary to presumed GI bleed Multiple displaced left rib fractures POA Trace layering pleural effusion vs hemothorax VONNIE, prerenal Hyperkalemia, improved s/p fall (03/01); recurrent falls NIDDM2 GERD, H/oh Schatzki's ring, mild (noted at time of PEG placement in 2018) HLD HTN Hypothyroidism Depression Hx CVA with left sided deficits (large R MCA infarct 2018) hx CAD s/p CABG h/o R common carotid artery stent (2018) h/o systolic CHF, chronic (EF: 40% 2018) h/o prior PEG after CVA, now removed Hematemesis; acute blood loss anemia secondary to presumed GI bleed Multiple displaced left rib fractures POA Trace layering pleural effusion vs hemothorax unclear etiology, but suspect GI bleed Came from group home - reports vomiting/coughing up dark red blood in large volumes that started yesterday. Thinks it was more blood than phlegm. Was hypotensive at the time 60/40s per EMR. CTA chest (03/01): Trace layering pleural effusion vs hemothorax. Multiple displaced left rib fractures. No PE. CXR (03/02): several minimally displaced left lateral rib fractures. No measurable pneumothorax. Lungs grossly clear. rib fractures from fall on 02/20/24 s/p 1 uPRBC (03/02) Hgb has been stable in 8s since transfusion hold home brilinta for now given bleeding and anemia tolerating liquid diet without issues; advance to soft&bite sized 8/5 am continue protonix BID will need to establish care / follow up with GI as outpatient VONNIE, prerenal Hyperkalemia, improved unknown baseline , ~1.5 estimated continue IV fluids Nephrology consulted Continue to monitor renal function creatinine improving s/p fall (03/01); recurrent falls sustained another fall last night ~2325 shortly after admission. Found on floor face first by nursing staff after hearing loud slam. BP 100/58 at the time, HR 64, 98%SPO2 on room air. No new visible injuries noted after fall. Has bruising to left hip POA prior to fall. Denies an head pain, no tenderness when asked what he hurt, he responded with "the wall" also had fall 1-2 weeks ago at [place] resulting in mildly displaced left 4th-7th rib fractures. Fall precautions pain control PT consulted Hypertension antihypertensives held since admission given low BP confirm home meds BP improving NIDDM2 accu-cheks, SSI GERD, H/oh Schatzki's ring, mild (noted at time of PEG placement in 2019) Hyperlipidemia Hypothyroidism Depression Hx CVA with left sided deficits (large R MCA infarct 2019) hx CAD s/p CABG h/o R common carotid artery stent (2019) h/o systolic CHF, chronic (EF: 40% 2019) h/o prior PEG after CVA, now removed confirm home meds, restart as appropriate hold brilinta for now VTE: SCDs Code: Full Dispo: back to [place] , ~1 day Pending hgb stable / renal function improves / BP stable / tolerates diet Time Spent Managing Pts Care (In Minutes): 38
--- NOTE | 2024-03-04 17:06 | EKG ---
Test Date: 2024-03-01 Test Time: 17:49:00 Icing Machine Operator: DESTINY MEASUREMENT RESULTS: Intervals: Rate: 61 NH: 154 QRSD: 104 QT: 428 QTc: 430 [place]: P: 80 NH: 154 QRS: -19 T: -41 INTERPRETIVE STATEMENTS: Sinus rhythm with sinus arrhythmia with fusion complexes Inferior infarct, age undetermined Cannot rule out Anterior infarct, age undetermined Abnormal ECG Compared to ECG 02/19/2022 16:01:44 Fusion complex(es) now present ST (T wave) deviation no longer present Possible ischemia no longer present Myocardial infarct finding still present Electronically Signed On 03-04-24 16:59:20 CDT by Leonid Daley
--- NOTE | 2024-03-04 20:20 | PN ---
Date of Progress Note: 03/04/2024 Chief Complaint: Acute on chronic kidney injury. History Of Present Illness: Patient presented to the hospital with severe fatigue and symptomatic an emia. He received blood transfusion. Renal function is stabilizing, and patient is on p.o. hydratio n primarily. He was started on IV fluids and renal function improved in response to IV fluids. Review of Systems: Denies chest pain or palpitation. Physical Examination: Lungs: Clear to auscultation bilaterally. Heart: S1, S2. Abdomen: Soft, benign. Extremities: No edema. Laboratory Data: Sodium 139, potassium 5, bicarbonate 24, BUN 28, creatinine 1.5, estimated GFR 46. Uric acid 6.7, phosphorus 2.3. Serum protein electrophoresis is pending. Urinalysis pending. Impression And Plan: 1.Acute on chronic kidney injury. Patient has severe anemia and received blood transfusion. GI wor kup was initiated for GI bleeding. Patient developed acute kidney injury secondary to prerenal azote apolinar, complicated by ATN in setting of GI bleeding and GI fluid loss, superimposed with contrast expos ure. Patient will continue hydration with IV. 2.Hyponatremia, depletional and improved. 3.Hyperkalemia, secondary to GI bleeding and kidney failure, and potassium level is improving. 4.GI bleeding, as per Primary team and Gastroenterology. 5.Hypertension. Blood pressure controlled. Continue current medication. STEPHANIE inhibitor on hold due to acute kidney injury. SHANICE/MODL Voice ID: [id number] Report ID: [id number]
[2024-03-04] MEDS: ENSURE HIGH PROTEIN 237 ML CAN PO SCH (20:37)
[2024-03-04 22:34] VITALS: O2SAT 98
[2024-03-05 05:55] LABS: Potassium 4.5 mEq/L (3.5-5.1)
[2024-03-05 05:59] LABS: Albumin 2.6 g/dL (3.4-5.0); Anion Gap 7.5 mEq/L (5.0-15.0); Magnesium 1.7 mg/dL (1.6-2.4)
[2024-03-05 06:05] LABS: Phosphorus 3.1 mg/dL (2.5-4.9)
[2024-03-05 06:24] LABS: Hematocrit 24.7 % (39.6-49.0); Hemoglobin 8.1 g/dL (13.6-17.9); MCH 27.1 pg (27.0-35.0); MCV 82.1 fL (80-100); Platelets 210 thou/uL (152-406); RBC Red Blood Cell Count 3.01 M/uL (4.33-5.43); Red Cell Distribution Width 19.2 % (12.1-15.2)
[2024-03-05 07:15] LABS: Specific Gravity 1.015 (1.005-1.030); Sqamous Epithelial <5 /HPF (None Seen); Urine Bacteria None Seen /HPF (<20); Urine Bilirubin NEGATIVE (Negative); Urine Blood Negative (Negative); Urine Clarity Extremely Turbid (Clear); Urine Color Light-Yellow (Yellow); Urine Glucose NEGATIVE (Negative); Urine Ketones NEGATIVE (Negative); Urine Microscopic Reflex YN ORDER UMIC; Urine Nitrite NEGATIVE (Negative); Urine Protein NEGATIVE (Negative); Urine RBC None Seen /HPF (None Seen); Urine Urobilinogen Normal (Normal); Urine WBC <5 /HPF (<5)
[2024-03-05 07:26] LABS: UR PROTEIN 24.8 mg/dL (<11.9); Urine Protein/Creatinine Ratio 0.2 ratio (<0.15)
--- NOTE | 2024-03-05 13:28 | P.DS ---
Admission Date: 03/02/24 Discharge Date: 03/05/24 Disposition: TRANSFER TO [facility] Discharge Condition: FAIR Reason for Admission: Hemoptysis left-sided rib fracture Brief History of Present Illness: Patient is 73 years old ma, [facility] resident was admitted with recurrent hemoptysis he was here in the emergency room on the day of admission and was discharged. He came back again because of persistent hemoptysis. Patient has multiple fractures of his ribs on the left side from a recent fall. Patient was complaining of nausea. He has a history of stroke with left-sided deficit and has been on aspirin and Brilinta. CT chest showed layering pleural effusion. Hematuria, and displaced left lateral 3rd to 7th rib fractures as well as a nondisplaced left ninth rib fracture. Patient was hospitalized for further management. Hospital Course: Diagnosis Hematemesis; acute blood loss anemia secondary to presumed GI bleed Multiple displaced left rib fractures POA Trace layering pleural effusion vs hemothorax VONNIE, prerenal Hyperkalemia, improved s/p fall (03/01); recurrent falls NIDDM2 GERD, H/oh Schatzki's ring, mild (noted at time of PEG placement in 2019) HLD HTN Hypothyroidism Depression Hx CVA with left sided deficits (large R MCA infarct 2018) hx CAD s/p CABG h/o R common carotid artery stent (2018) h/o systolic CHF, chronic (EF: 40% 2019) h/o prior PEG after CVA, now removed Hematemesis; acute blood loss anemia secondary to presumed GI bleed Multiple displaced left rib fractures POA Trace layering pleural effusion vs hemothorax unclear etiology, but suspect GI bleed [facility] - reports vomiting/coughing up dark red blood. Patient was hypotensive at the time 60/40s per EMR. CTA chest (03/01): Trace layering pleural effusion vs hemothorax. Multiple displaced left rib fractures. No PE. CXR (03/02): several minimally displaced left lateral rib fractures. No measurable pneumothorax. Lungs grossly clear. rib fractures from fall on 02/20/24 s/p 1 uPRBC (03/02) Hgb has been stable in 8s since transfusion Held home brilinta given bleeding and anemia Patient tolerated soft&bite sized diet He was treated with IV Protonix and transition to oral Protonix on discharge. No GI on-call. Case discussed with Dr. Bullard who will follow up with patient next week for EGD Cardiology consulted for preoperative evaluation. VONNIE, prerenal Hyperkalemia, improved unknown baseline , ~1.5 estimated Patient treated with IV fluid, serum creatinine improved to baseline Nephrology consulted to assist with management s/p fall (03/01); recurrent falls sustained another fall last night ~2325 shortly after admission. Found on floor face first by nursing staff after hearing loud slam. BP 100/58 at the time, HR 64, 98%SPO2 on room air. No new visible injuries noted after fall. Has bruising to left hip POA prior to fall. Denies an head pain, no tenderness Fall precautions advised Patient received PT sessions. Patient recommended to continue PT after discharge Hypertension antihypertensives held since admission given low BP BP improved and he is currently normotensive. Patient may resume home antihypertensives on discharge. NIDDM2 Managed with insulin sliding scale Home dose metformin resumed on discharge. GERD, H/oh Schatzki's ring, mild (noted at time of PEG placement in 2018) Hyperlipidemia Hypothyroidism Depression Hx CVA with left sided deficits (large R MCA infarct 2018) hx CAD s/p CABG h/o R common carotid artery stent (2018) h/o systolic CHF, chronic (EF: 40% 2018) h/o prior PEG after CVA, now removed Held Brilinta, continue with other medications. Vital Signs/Physical Exam: Temp Pulse Resp BP Pulse Ox 98.4 F 80 15 125/26 L 95 03/05/24 12:00 03/05/24 12:00 03/05/24 12:20 03/05/24 12:00 03/05/24 12:20 Laboratory Data at Discharge: WBC 5.50 thou/uL (4.3-10.9) 03/05/24 04:57 Hgb 8.1 g/dL (13.6-17.9) L 03/05/24 04:57 Hct 24.7 % (39.6-49.0) L 03/05/24 04:57 Plt Count 210 thou/uL (152-406) 03/05/24 04:57 Sodium 140 mEq/L (136-145) 03/05/24 04:57 Potassium 4.5 mEq/L (3.5-5.1) 03/05/24 04:57 BUN 14 mg/dL (7-18) 03/05/24 04:57 Creatinine 1.39 mg/dL (0.70-1.30) H 03/05/24 04:57 Glucose 108 mg/dL (74-106) H 03/05/24 04:57 Uric Acid 6.7 mg/dL (3.5-7.2) 03/03/24 05:56 Phosphorus 3.1 mg/dL (2.5-4.9) 03/05/24 04:57 Magnesium 1.7 mg/dL (1.6-2.4) 03/05/24 04:57 Total Bilirubin 0.7 mg/dL (0.2-1.0) 03/03/24 05:56 AST < 10 U/L (15-37) L 03/03/24 05:56 ALT < 14 U/L (16-61) L 03/03/24 05:56 Alkaline Phosphatase 83 U/L (45-117) 03/03/24 05:56 Home Medications: Acetaminophen 650 mg PO Q4H PRN 12/18/20 Fluoxetine HCl 10 mg PO DAILY 12/18/20 Levothyroxine Sodium 25 mcg PO DAILY 12/18/20 Metformin HCl 1 tab PO BIDWM 12/18/20 Sennosides [Senna] 8.6 mg PO DAILY 12/18/20 Tramadol HCl [Ultram] 1 tab PO Q8HP PRN 12/18/20 levETIRAcetam [Keppra] 1 tab PO BID 12/18/20 ondansetron HCL [Zofran] 1 tab PO Q8H PRN 12/18/20 Atorvastatin Calcium [Lipitor*] 10 mg PO BEDTIME 03/02/24 Fluoxetine HCl 20 mg PO DAILY 03/02/24 Losartan Potassium 100 mg PO DAILY 03/02/24 Mag Hydrox/Aluminum Hyd/Simeth [Alum-Mag Hydroxide-Simeth Cup] 15 ml PO Q6HP PRN 03/02/24 Multivitamin [Multiple Vitamins] 1 each PO DAILY 03/02/24 Nitroglycerin [Nitrostat*] 0.4 mg SL SEECOM PRN 03/02/24 Ensure High Protein 237 ml PO BID can 03/05/24 Pantoprazole [Protonix Tab] 40 mg PO BID #60 tab 03/05/24 New Medications: Pantoprazole [Protonix Tab] 40 mg PO BID #60 tab Physician Discharge Instructions: Please resume home antihypertensives once systolic blood pressure is greater maria e n 140. Fall precautions advised. PT services recommended in the facility postdischarge from acute care. Check hemoglobin at least once weekly to follow anemia. LT resident: Chandrika [address] [place] [id number] P:[phone]/F:[phone] Followup: NONE,NONE [Primary Care Provider] - 1 Week Jesus Bullard MD [ACTIVE - CAN ADMIT] - 1 Week (GI bleed, Please follow-up with Dr. Bullard next week.) Time spent managing pt's care (in minutes): 38
[2024-03-05 16:15] VITALS: BP 143/70; TEMP 97.7
--- NOTE | 2024-03-05 17:04 | PN ---
Date of Progress Note: 03/05/2024 Subjective: Patient was admitted to the hospital with acute kidney injury secondary to prerenal. Fred jack was started on hydration. The patient exposed to contrast. Kidney function continued to impro ve. Physical Examination: Vital Signs: Blood pressure 126/65, pulse of 78, afebrile. Chest: Clear to auscultation. Heart: S1, S2 regular. Abdomen: Soft, nontender. Extremities: No edema. Neuro: Alert. No focality. Laboratory Data: WBC 5.5, hemoglobin 8.1. Sodium 140, potassium 4.5, bicarb 24, BUN 14, creatinine 1.3, GFR 53, calcium 8.6. Phosphorus 3.1, magnesium 1.7, albumin 2.6, corrected calcium is 9.8. Iro n saturation of 30. Ferritin of 26. Current Medications: The patient on include atorvastatin, Keppra, breathing treatment, Zofran, morph ine. Assessment And Plan: 1.Acute kidney injury secondary to prerenal, superimposed with contrast-induced nephropathy. Contin ue to recover. Normal volume. Discontinue IV fluid. We will monitor. 2.Hypertension, controlled, optimal. Continue current medication. 3.Hyperkalemia, resolved. 4.Deconditioning. Continue PT, OT. Patient cleared from the Renal standpoint for discharge planning. MARY Voice ID: [id number] Report ID: [id number]
--- NOTE | 2024-03-05 20:52 | CON ---
Date of Consultation: 03/05/2024 Reason For Consultation: Preop risk assessment before colonoscopy plus-minus EGD. History Of Present Illness: Patient is a 73-year-old male, is admitted with recurrent hemoptysis cristian arently and GI saw him and requested a cardiac clearance before a GI workup with the endoscopy. This patient has history of coronary artery disease, status post 2-vessel CABG a few years back 3 years a go. No chest pain. 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 He has hypertension, dyslipidemia , and diabetes, history of CVA and lives in a [facility]. Denies having any active chest pain or s hortness of breath and no cardiac complaints at the present time. Past Medical History: As outlined above in the HPI. Medications: Refer to reconciliation sheet for detailed list. Allergies: NO KNOWN DRUG ALLERGIES. Family History: No premature coronary artery disease or cancer. Social History: Does not smoke or drink. Does not use any drugs. Review of Systems: All systems were reviewed and they were negative except as mentioned in the HPI. Physical Examination: Vital Signs: Reviewed. Head and Neck: Pupils are equal, reactive to light. Intact eye movements. No JVD. No cervical lym phadenopathy. Neck is supple. Thyroid is not enlarged. Lungs: Clear to auscultation bilaterally. No rhonchi, wheezing, or crackles. No accessory muscle u se. Heart: Irregular. No extra sounds. Abdomen: Soft, nontender. Bowel sounds positive. No organomegaly. No masses or hernia. No rigidi ty or rebound. Extremities: No edema, clubbing, or cyanosis. Intact pulses. Skin: No rash. No nodule. Neurologic: Alert, awake, oriented x3. No acute focal deficits appreciated. Investigations: BUN is 14, creatinine 1.39, and hemoglobin is 8.1. Assessment And Recommendations: 1.Cardiac preoperative risk assessment for GI workup, esophagogastroduodenoscopy and colonoscopy. T he patient has history of coronary artery disease but appears to be stable and status post bypass andrea rohith 3 years ago and no chest pain. Cardiac exam is unremarkable. It is a low risk procedure. From the cardiac standpoint, no further workup is needed prior to the EGD/colonoscopy. Discussed the ana paula e with the primary hospitalist. 2.Hyperlipidemia. Continue statin. 3.Coronary artery disease. No chest pain. Continue home medications. 4.Hypertension. Blood pressure is controlled. Thank you for the consult. Cardiology will sign off. SR/MODL Voice ID: [id number] Report ID: [id number]
[2024-03-07 12:00] LABS: Complement C3 114 mg/dL (82-185)
[2024-03-07 13:05] LABS: Abnormal Protein Band 1 REPORT; Albumin, (SPE) 3.2 g/dL (3.8-4.8); Alpha-1-Globulins 0.3 g/dL (0.2-0.3); Alpha-2-Globulins 0.9 g/dL (0.5-0.9); Beta 1 Globulin 0.4 g/dL (0.4-0.6); Gamma Globulins 0.7 g/dL (0.8-1.7); INTERPRETATION REPORT; Total Protein 5.9 g/dL (6.1-8.1)
[2024-03-09 13:35] LABS: Anti-Nuclear Antibody Screen Positive (Negative)
[2024-03-09 14:01] LABS: Anti-Nuclear Antibody Pattern REPORT
== END 2024-03-05 19:55 | DRG 183 ==
LOC: ER 17:06 → ERHOLD 20:12 → 2ND 22:24 → OBSVTOIN 03-02 09:41
PROVIDERS: ADMIT Internal Medicine Sleep Medicine; ATTEND Internal Medicine
PROC: 30233N1 Transfusion of Nonautologous Red Blood Cells into Peripheral Vein, Percutaneous Approach (ICD-10-PCS; principal; 2024-03-02)
DX: S22.42XA Multiple fractures of ribs, left side, initial encounter for closed fracture (principal); N17.0 Acute kidney failure with tubular necrosis; D62 Acute posthemorrhagic anemia; I69.354 Hemiplegia and hemiparesis following cerebral infarction affecting left non-dominant side; I50.22 Chronic systolic (congestive) heart failure; K92.0 Hematemesis; E87.1 Hypo-osmolality and hyponatremia; I11.0 Hypertensive heart disease with heart failure; K21.9 Gastro-esophageal reflux disease without esophagitis; E78.5 Hyperlipidemia, unspecified; E03.9 Hypothyroidism, unspecified; E87.5 Hyperkalemia; F32.A Depression, unspecified; E11.40 Type 2 diabetes mellitus with diabetic neuropathy, unspecified; I25.10 Atherosclerotic heart disease of native coronary artery without angina pectoris; I25.2 Old myocardial infarction; Z79.4 Long term (current) use of insulin; Z95.1 Presence of aortocoronary bypass graft; Z79.82 Long term (current) use of aspirin; Z79.890 Hormone replacement therapy; Z79.899 Other long term (current) drug therapy; W18.30XA Fall on same level, unspecified, initial encounter; Y92.129 Unspecified place in nursing home as the place of occurrence of the external cause; Y93.9 Activity, unspecified; Y99.9 Unspecified external cause status
CPT/HCPCS: 36415; 36430; 71045; 71275; 76770; 80053; 80069; 80076; 81001; 82550; 82570; 82607; 82728; 82947; 83540; 83735; 83970; 84156; 84165; 84443; 84466; 84550; 85014; 85018; 85025; 85027; 85044; 86021; 86038; 86160; 86225; 86430; 86803; 86850; 86900; 86901; 86920; 93005; 94640; 96361; 96374; 97116; 97161; 97530; 99285; G0378; J2270; J2405; J2470; J7030; J7644; J7799; P9016; Q9967

== ENCOUNTER → 2024-03-08 | Day surgery (SDC) | payer OTHER ==
[~2024-03-08] MED LIST: LIDOCAINE 1% MPF 5 ML VIAL ONE; NA CHLORIDE 0.9% 1,000 ML ONE; propofoL 200 MG/20 ML VIAL IV ONE
[2024-03-08 13:18] VITALS: TEMP 97.6
[2024-03-08 15:35] VITALS: BP 136/79; O2SAT 99
== END ==
LOC: OR 12:13
PROVIDERS: ATTEND Internal Medicine Gastroenterology
PROC: 0DB78ZX Excision of Stomach, Pylorus, Via Natural or Artificial Opening Endoscopic, Diagnostic (ICD-10-PCS; 2024-03-08)
PROC: 0DB68ZX Excision of Stomach, Via Natural or Artificial Opening Endoscopic, Diagnostic (ICD-10-PCS; principal; 2024-03-08 14:30)
DX: D50.9 Iron deficiency anemia, unspecified (principal); K92.0 Hematemesis; K92.2 Gastrointestinal hemorrhage, unspecified; K22.2 Esophageal obstruction; K44.9 Diaphragmatic hernia without obstruction or gangrene; K26.3 Acute duodenal ulcer without hemorrhage or perforation; K29.50 Unspecified chronic gastritis without bleeding; B96.81 Helicobacter pylori [H. pylori] as the cause of diseases classified elsewhere; N18.9 Chronic kidney disease, unspecified; E11.9 Type 2 diabetes mellitus without complications; I10 Essential (primary) hypertension; R53.83 Other fatigue
CPT/HCPCS: 43239; 88312; 82947; 88305; J2704; J2001; J7030

== ENCOUNTER 2024-05-06 08:00 | Emergency (ER) | payer OTHER ==
[2024-05-06] MEDS ORDERED: ACETAMINOPHEN 325 MG TABLET ONE (08:17)
--- NOTE | 2024-05-06 09:50 | RAD REPORT ---
EXAM:Ribs Left HISTORY: fall;Pain COMPARISON: 03/02/2024 chest radiograph IMPRESSION: Multiple subacute left-sided rib fractures including the left third, fourth, fifth, sixth, seventh, e ighth, and ninth ribs ribs. The left seventh rib fracture is segmental. No pneumothorax. No definte acute rib fracture identified. Sternotomy.
--- NOTE | 2024-05-06 09:54 | ER ---
Nurse's Notes [facility] Name: Zain Hope Age: 73 yrs Sex: Male : 1950 Arrival Date: 05/06/2024 Time: 08:00 Bed 19 Private MD: Diagnosis: Sprain of ribs Presentation: 05/06 08:07 Chief complaint: EMS states: they were toned out to [place] for a fall in the 6 bathroom. pt denies LOC, take a baby aspirin daily and reports left sided rib pain. Coronavirus screen: At this time, the client does not indicate any symptoms associated with coronavirus-19. Ebola Screen: No symptoms or risks identified at this time. Initial Sepsis Screen: Does the patient meet any 2 criteria? No. Patient's initial sepsis screen is negative. Does the patient have a suspected source of infection? No. Patient's initial sepsis screen is negative. Risk Assessment: Do you want to hurt yourself or someone else? Patient reports no desire to harm self or others. Onset of symptoms was May 06, 2024. 08:07 Method Of Arrival: EMS: [facility] 08:07 Acuity: BRYANT 3 kc6 Triage Assessment: 08:08 General: Appears in no apparent distress. comfortable, well groomed, well developed, kc Behavior is calm, cooperative, appropriate for age. Pain: Complains of pain in left lateral anterior chest. EENT: No signs and/or symptoms were reported regarding the EENT system. Neuro: Level of Consciousness is awake, alert, obeys commands, Oriented to person, place, situation, Appropriate for age. Cardiovascular: Capillary refill < 3 seconds. Respiratory: Airway is patent Trachea midline Respiratory effort is even, unlabored, Respiratory pattern is regular, symmetrical. GI: No signs and/or symptoms were reported involving the gastrointestinal system. : No signs and/or symptoms were reported regarding the genitourinary system. Derm: No signs and/or symptoms reported regarding the dermatologic system. Skin is intact, is healthy with good turgor, Skin is pink, warm \T\ dry. Musculoskeletal: No signs and/or symptoms reported regarding the musculoskeletal system. Circulation, motion, and sensation intact. Capillary refill < 3 seconds, Range of motion: intact in all extremities. Historical: - Allergies: 08:08 No Known Allergies; kc6 - PMHx: 08:08 CAD; CVA; Depression; Diabetes - NIDDM; DYSPHAGIA; GERD; Hyperlipidemia; Hypertension; kc6 Hypothyroidism; 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 - Infectious Disease History:: Denies. - Social history:: Smoking status: Patient/guardian denies using tobacco, but has a distant history of tobacco abuse. Screenin:11 [facility] ED Fall Risk Assessment (Adult) History of falling in the last 3 months, kc6 including since admission Yes- fall prone (multiple falls) (3 pts) Confusion or Disorientation Yes (5 pts) Intoxicated or Sedated No (0 pts) Impaired Gait Yes (1 pt) Mobility Assist Device Used Yes (1 pt) Altered Elimination No (0 pt) Score/Fall Risk Level 3 or more points = High Risk Oriented to surroundings, Maintained a safe environment, Educated pt \T\ family on fall prevention, incl call for assistance when getting out of bed. Abuse screen: Denies threats or abuse. Denies injuries from another. Nutritional screening: No deficits noted. Tuberculosis screening: No symptoms or risk factors identified. Assessment: 08:10 Reassessment: please see triage. [facility] 09:04 Reassessment: Patient appears in no apparent distress at this time. No changes from [facility] previously documented assessment. Patient and/or family updated on plan of care and expected duration. Pain level reassessed. 09:56 Reassessment: attempted to call report to [place]. no answer at this time. [facility] 10:18 Reassessment: Patient appears in no apparent distress at this time. No changes from [facility] previously documented assessment. Patient and/or family updated on plan of care and expected duration. Pain level reassessed. 10:20 Reassessment: nurse to nurse report given to JACLYN Downing at [place]. states she will [facility] arrange transport and call back with an ETA. Vital Signs: 08:07 BP 181 / 93; Pulse 62; Resp 18 S; Temp 98.2(O); Pulse Ox 96% on R/A; Weight 58.06 kg kc6 (M); Height 5 ft. 4 in. (R); 08:11 BP 155 / 94; kc6 09:57 BP 171 / 72; Pulse 72; Resp 18 S; Pulse Ox 96% on R/A; kc6 08:07 Body Mass Index 21.97 (58.06 kg, 162.56 cm) kc6 ED Course: 08:06 Patient arrived in ED. kc6 08:08 [facility] sb[facility] 08:08 Veena Griggs MD is Attending Physician. sb4 08:08 Triage completed. kc6 08:08 Arm band placed on. kc6 08:11 Patient has correct armband on for positive identification. Bed in low position. Call kc6 light in reach. Side rails up X2. Pulse ox on. NIBP on. Door closed. Noise minimized. Lights dimmed. Warm blanket given. Pillow given. 08:11 Patient maintains SpO2 saturation greater than 95% on room air. kc6 08:12 Danna Martinez RN is Primary Nurse. kc6 09:04 Ribs Left XRAY In Process Unspecified. EDMS 10:36 Assisted with urinal. kc6 11:15 Provided Education on: incentive spirometer. kc6 11:15 No provider procedures requiring assistance completed. Patient did not have IV access kc6 during this emergency room visit. Administered Medications: 08:21 Drug: Acetaminophen PO 650 mg PO once Route: PO; kc6 09:02 Follow up: Response: No adverse reaction kc6 10:05 Drug: traMADol PO 50 mg PO once Route: PO; kc6 10:21 Follow up: Response: No adverse reaction; Pain is decreased; RASS: Alert and Calm (0) kc6 Medication: 11:15 VIS not applicable for this client. kc6 Outcome: 09:54 Discharge ordered by . sb4 11:15 Discharged to skilled nursing. Report called to JACLYN Downing kc6 11:15 Condition: good 11:15 Discharge instructions given to patient, Instructed on discharge instructions, follow up and referral plans. Demonstrated understanding of instructions, follow-up care, 11:15 Patient left the ED. kc6 Signatures: Dispatcher [employer] EDMS Danna Martinez RN RN kc6 Ann Corea PA-C PA-C sb4
--- NOTE | 2024-05-06 09:55 | EDPHYS ---
Physician Documentation [facility] Name: Zain Hope Age: 73 yrs Sex: Male : 1950 Arrival Date: 05/06/2024 Time: 08:00 Bed 19 Private MD: ED Physician Veena Griggs HPI: 05/06 08:08 This 73 yrs old Male presents to ER via Unassigned with complaints of Fall sb4 Injury. 08:10 Details of fall: The patient fell from an upright position, while walking. Onset: The sb4 symptoms/episode began/occurred just prior to arrival. Associated injuries: The patient sustained injury to the chest, pain with breathing, pain with movement, tenderness, left anterior. The patient has experienced similar episodes in the past, a few times. The patient has not recently seen a physician. Historical: - Allergies: 08:08 No Known Allergies; kc6 - PMHx: 08:08 CAD; CVA; Depression; Diabetes - NIDDM; DYSPHAGIA; GERD; Hyperlipidemia; Hypertension; kc6 Hypothyroidism; 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 - Infectious Disease History:: Denies. - Social history:: Smoking status: Patient/guardian denies using tobacco, but has a distant history of tobacco abuse. ROS: 08:10 Constitutional: Negative for fever, chills, and weight loss, sb4 08:10 MS/extremity: Positive for injury or acute deformity, pain, tenderness, of the left lateral anterior chest, 08:10 All other systems are negative, Exam: 08:10 Constitutional: This is a well developed, well nourished patient who is awake, alert, sb4 and in no acute distress. Head/Face: Normocephalic, atraumatic. Eyes: Extra-ocular motions intact. Periorbital areas with no swelling, redness, or edema. ENT: Mucous membranes moist. Cardiovascular: Regular rate and rhythm with a normal S1 and S2. Respiratory: Lungs have equal breath sounds bilaterally, clear to auscultation and percussion. No rales, rhonchi or wheezes noted. No increased work of breathing, no retractions or nasal flaring. Skin: Warm, dry with normal turgor. Normal color with no rashes, no lesions, and no evidence of cellulitis. 08:10 Chest/axilla: Inspection: normal, Palpation: tenderness, that is mild, of the left seventh rib and left eighth rib, that partially reproduces the patient's complaints, Vital Signs: 08:07 BP 181 / 93; Pulse 62; Resp 18 S; Temp 98.2(O); Pulse Ox 96% on R/A; Weight 58.06 kg kc6 (M); Height 5 ft. 4 in. (R); 08:11 BP 155 / 94; kc6 09:57 BP 171 / 72; Pulse 72; Resp 18 S; Pulse Ox 96% on R/A; kc6 08:07 Body Mass Index 21.97 (58.06 kg, 162.56 cm) kc6 MDM: 08:08 Patient medically screened. sb4 09:44 Data reviewed: vital signs, nurses notes, EMS record, shelter records, radiologic sb4 studies, and as a result, I will discharge patient. Care significantly affected by the following chronic conditions: Diabetes, Hypertension. Counseling: I had a detailed discussion with the patient and/or guardian regarding the historical points, exam findings, and any diagnostic results supporting the discharge/admit diagnosis, radiology results, the need for outpatient follow up, for definitive care, to return to the emergency department if symptoms worsen or persist or if there are any questions or concerns that arise at home. 09:54 ED course: fractures are subacute, chest CT from 2 months ago confirms. sb4 05/06 08:08 Order name: Ribs Left XRAY; Complete Time: 09:52 sb4 05/06 09:54 Order name: INCENTIVE SPIROMETRY sb4 Administered Medications: 08:21 Drug: Acetaminophen PO 650 mg PO once Route: PO; 6 09:02 Follow up: Response: No adverse reaction kc6 10:05 Drug: traMADol PO 50 mg PO once Route: PO; kc6 10:21 Follow up: Response: No adverse reaction; Pain is decreased; RASS: Alert and Calm (0) kc6 Disposition Summary: 05/06/24 09:54 Discharge Ordered Notes: Location: Home sb4 Problem: new sb4 Symptoms: have improved sb4 Condition: Stable sb4 Diagnosis - Sprain of ribs sb4 Followup: sb4 - With: Private Physician - When: 1 week - Reason: Recheck today's complaints, Re-evaluation by your physician Discharge Instructions: - Discharge Summary Sheet sb4 - Rib Contusion sb4 - How to Use an Incentive Spirometer sb4 Forms: - Patient Portal Instructions sb4 - Leadership Thank You Letter sb4 Signatures: Dispatcher MedHoDanna Godinez, RN RN kc6 Ann Corea PA-C PA-C sb4 Corrections: (The following items were deleted from the chart) 08:08 08:08 Ribs Left+RAD.RAD.BRZ ordered. NIRMALA SILVESTRE
[2024-05-06] MEDS ORDERED: TRAMADOL HCL 50 MG TAB ONE (10:01)
[2024-05-06 11:24] VITALS: TEMP 98.2; O2SAT 96
[2024-05-06 11:27] VITALS: BP 171/72
== END 2024-05-06 11:15 | disposition home or self-care (01) ==
LOC: ER 08:00
DX: S23.41XA Sprain of ribs, initial encounter (principal); W18.30XA Fall on same level, unspecified, initial encounter
CPT/HCPCS: 99284

== ENCOUNTER 2024-07-16 07:30 | Day surgery (SDC) | payer OTHER ==
[2024-07-12 14:05] LABS: Absolute Eosinophils 0.3 K/uL (0-0.5); Absolute Lymphocytes (CBC) 1.6 K/uL (0.7-4.9); Absolute Monocytes 0.6 K/uL (0.1-1.3); Absolute Neutrophil 4.3 K/uL (1.8-8.0); Basophils % 0.6 % (0-1.3); Eosinophils % 4.4 % (0-4.4); Hemoglobin 8.5 g/dL (13.6-17.9); MCH 25.9 pg (27.0-35.0); MCHC 31.5 g/dL (32.0-36.0); MCV 82.4 fL (80-100); MPV 8.3 fL (7.6-11.3); Monocytes % 9.4 % (3.3-12.3); Neutrophils % 62.6 % (41.7-73.7); Platelets 302 thou/uL (152-406); RBC Red Blood Cell Count 3.27 M/uL (4.33-5.43); Red Cell Distribution Width 17.3 % (12.1-15.2)
[2024-07-12 14:17] LABS: Anion Gap 5.8 mEq/L (5.0-15.0); Potassium 4.8 mEq/L (3.5-5.1)
[2024-07-16] MEDS ORDERED: propofoL 200 MG/20 ML VIAL IV ONE (07:50)
[2024-07-16] MEDS ORDERED: LIDOCAINE 2% MPF 5 ML VIAL ONE (07:50)
[2024-07-16] MEDS: NA CHLORIDE 0.9% 1,000 ML ONE (07:55)
[2024-07-16] MEDS ORDERED: SUCCINYLCHOLINE 20 MG/ML (10 ML) IV ONE (08:20)
[2024-07-16 10:09] VITALS: TEMP 97.3
[2024-07-16 10:10] VITALS: BP 141/64; O2SAT 99
== END 2024-07-16 10:00 | disposition home or self-care (01) ==
LOC: OR 07:30
PROVIDERS: ATTEND Internal Medicine Gastroenterology
PROC: 0DJD8ZZ Inspection of Lower Intestinal Tract, Via Natural or Artificial Opening Endoscopic (ICD-10-PCS; principal; 2024-07-16 08:30)
DX: D50.9 Iron deficiency anemia, unspecified (principal); K26.9 Duodenal ulcer, unspecified as acute or chronic, without hemorrhage or perforation; K57.30 Diverticulosis of large intestine without perforation or abscess without bleeding; Q27.33 Arteriovenous malformation of digestive system vessel; K64.8 Other hemorrhoids
CPT/HCPCS: 85025; 80048; 36415; 82947; 45378; J2704; J2003; J7030

== ENCOUNTER 2024-10-30 03:12 | Observation (INO) | payer OTHER ==
[2024-10-30 03:54] LABS: Absolute Eosinophils 0.4 K/uL (0-0.5); Absolute Lymphocytes (CBC) 1.5 K/uL (0.7-4.9); Absolute Monocytes 0.5 K/uL (0.1-1.3); Absolute Neutrophil 3.1 K/uL (1.8-8.0); Basophils % 0.6 % (0-1.3); Eosinophils % 6.6 % (0-4.4); Hematocrit 22.9 % (39.6-49.0); Hemoglobin 7.6 g/dL (13.6-17.9); Lymphocytes % 27.7 % (15.3-44.8); MCH 24.2 pg (27.0-35.0); MCHC 33.1 g/dL (32.0-36.0); MCV 73.1 fL (80-100); MPV 8.4 fL (7.6-11.3); Monocytes % 9.8 % (3.3-12.3); Neutrophils % 55.3 % (41.7-73.7); Platelets 213 thou/uL (152-406); RBC Red Blood Cell Count 3.14 M/uL (4.33-5.43); Red Cell Distribution Width 17.8 % (12.1-15.2)
[2024-10-30 04:05] LABS: Albumin 3.3 g/dL (3.4-5.0); Alkaline Phosphatase 55 U/L (45-117); Anion Gap 8.6 mEq/L (5.0-15.0); BUN Blood Urea Nitrogen 24 mg/dL (7-18); Bicarbonate 26 mEq/L (21-32); Bilirubin Total 0.3 mg/dL (0.2-1.0); Globulin 3.4 g/dL (2.3-3.5); Glomerular Filtration Rate 35 ml/min (=/>90); Glucose Level 88 mg/dL (74-106); Potassium 4.6 mEq/L (3.5-5.1); Protein, Total 6.7 g/dL (6.4-8.2); Sodium Level 137 mEq/L (136-145)
[2024-10-30 04:06] LABS: ALT/SGPT < 14 U/L (16-61); AST/SGOT < 10 U/L (15-37)
[2024-10-30 04:08] LABS: Troponin High Sensitivity 64.5 pg/mL (<58.9)
[2024-10-30] MEDS ORDERED: ACETAMINOPHEN 500 MG TAB ONE (04:22)
[2024-10-30] MEDS ORDERED: NA CHLORIDE 0.9% 1,000 ML ONE ×2 (04:28→10:18)
--- NOTE | 2024-10-30 04:39 | ER ---
Nurse's Notes [facility] Name: Zain Hope Age: 73 yrs Sex: Male : 1950 Arrival Date: 10/30/2024 Time: 03:12 Bed 5 Private MD: Diagnosis: Near syncope;Elevated troponin;Elevated creatinine Presentation: 10/30 03:18 Chief complaint: EMS states: TONED OUT FOR LOW HGB. EMS REPORTS PT FROM [facility][1], dd2 RECEIVED CALL FROM RN THAT PT'S BLOODWORK FROM PREVIOUS DAY RESULTED WITH HGB 7.3 AND PT NEEDS A BLOOD TRANSFUSION. Coronavirus screen: At this time, the client does not indicate any symptoms associated with coronavirus-19. Ebola Screen: No symptoms or risks identified at this time. Initial Sepsis Screen: Does the patient meet any 2 criteria? No. Patient's initial sepsis screen is negative. Does the patient have a suspected source of infection? No. Patient's initial sepsis screen is negative. Risk Assessment: Do you want to hurt yourself or someone else? Patient reports no desire to harm self or others. Onset of symptoms was October 29, 2024. Transition of care: patient was received from another setting of care (long-term care facility), [facility]. 03:18 Method Of Arrival: EMS: [facility] dd2 03:18 Acuity: BRYANT 3 dd2 Triage Assessment: 03:22 General: Appears in no apparent distress. Behavior is calm, cooperative, appropriate dd2 for age. Pain: Complains of pain in HEAD Pain does not radiate. Pain currently is 6 out of 10 on a pain scale. Pain began PT REPORTS EVERYDAY. EENT: No deficits noted. No signs and/or symptoms were reported regarding the EENT system. 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 Reports headache in entire PT REPORTS HEADACHE EVERYDAY. Cardiovascular: Heart tones S1 S2 present Capillary refill < 3 seconds JVD is absent Patient's skin is warm and dry. Respiratory: Airway is patent Respiratory effort is even, unlabored, Respiratory pattern is regular, symmetrical, Breath sounds are clear bilaterally. GI: Abdomen is flat, non-distended, Bowel sounds present X 4 quads. Abd is soft and non tender X 4 quads. : No deficits noted. No signs and/or symptoms were reported regarding the genitourinary system. Derm: No deficits noted. No signs and/or symptoms reported regarding the dermatologic system. Skin is intact, is thin, Skin is dry, Skin is normal, Skin temperature is warm. Musculoskeletal: Circulation, motion, and sensation intact. Range of motion: LT HAND CONTRACTED. 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 - Infectious Disease History:: Denies. - Family history:: not pertinent. - Social history:: Smoking status: Patient denies any tobacco usage or history of. Screenin:29 [facility] ED Fall Risk Assessment (Adult) History of falling in the last 3 months, dd2 including since admission No falls in past 3 months (0 pts) Confusion or Disorientation No (0 pts) Intoxicated or Sedated No (0 pts) Impaired Gait Yes (1 pt) Mobility Assist Device Used Yes (1 pt) Altered Elimination Yes (1 pt) Score/Fall Risk Level 3 or more points = High Risk Oriented to surroundings, Maintained a safe environment, Educated pt \T\ family on fall prevention, incl call for assistance when getting out of bed, Assessed \T\ reinforced patient's understanding of fall precautions, Provided non-skid footwear, Hourly rounding (assess needs \T\ fall precautionary measures) done, Used ambulatory aids as needed (educated on \T\ assisted with), Offered frequent toileting (1:1 observation). Abuse screen: Denies threats or abuse. Denies injuries from another. Nutritional screening: No deficits noted. Tuberculosis screening: No symptoms or risk factors identified. Assessment: 03:29 Reassessment: SEE TRIAGE ASSESSMENT FOR FULL ASSESSMENT. dd2 04:35 General: Appears in no apparent distress. Behavior is calm, cooperative. Neuro: Level kd3 of Consciousness is awake, alert, obeys commands, Oriented to person, place, time, situation. Cardiovascular: Patient's skin is warm and dry. Respiratory: Airway is patent Trachea midline Respiratory effort is even, unlabored, Respiratory pattern is regular, symmetrical. Vital Signs: 03:18 BP 139 / 78; Pulse 85; Resp 16; Temp 97.9; Pulse Ox 97% ; Weight 74.84 kg; Pain 4/10; dd2 04:30 BP 138 / 78; Pulse 72; Resp 16; Pulse Ox 99% on R/A; dd2 05:35 BP 128 / 80; Pulse 82; Resp 16; Pulse Ox 97% on R/A; dd2 06:45 BP 138 / 82; Pulse 70; Resp 16; Pulse Ox 96% on R/A; dd2 15:14 BP 131 / 97; Pulse 77; Resp 18; Pulse Ox 98% on R/A; ld1 03:18 Pain Scale: Adult dd2 [place] Coma Score: 03:29 Eye Response: spontaneous(4). Motor Response: obeys commands(6). Verbal Response: dd2 oriented(5). Total: 15. ED Course: 03:13 Patient arrived in ED. dd2 03:14 Tanner Hodge MD is Attending Physician. rt 03:22 Triage completed. dd2 03:22 Arm band placed on right wrist. dd2 03:24 Samina Rodriguez, RN is Primary Nurse. kd3 03:29 Patient has correct armband on for positive identification. Bed in low position. Call dd2 light in reach. Side rails up X2. Client placed on continuous cardiac and pulse oximetry monitoring. NIBP monitoring applied. Door closed. Noise minimized. Warm blanket given. Pillow given. Verbal reassurance given. 03:29 No provider procedures requiring assistance completed. Patient maintains SpO2 dd2 saturation greater than 95% on room air. 03:40 Troponin High Sensitivity Sent. kd3 03:40 Type And Screen Sent. kd3 03:40 CMP Sent. kd3 03:40 CBC with Diff Sent. kd3 03:40 Initial lab(s) drawn, by me, sent to lab. Inserted saline lock: 20 gauge in right kd3 antecubital area, using aseptic technique. Blood collected. Flushed with 10 mL NS. 04:00 EKG done, by ED staff, reviewed by Tanner Hodge MD. dd2 04:38 Karrie Leal MD is Hospitalizing Provider. rt 07:05 Primary Nurse role handed off by Samina Rodriguez RN bd Administered Medications: 04:26 Drug: Acetaminophen PO 1000 mg PO once Route: PO; kd3 04:56 Follow up: Response: No adverse reaction dd2 05:45 Follow up: Response: No adverse reaction; Pain is decreased kd3 04:30 Drug: NS 0.9% IV 1000 ml IV at 1000 ml once; to be given as a bolus over 60 minutes dd2 Route: IV; Rate: 1000 ml; Site: right antecubital; 05:45 Follow up: Response: No adverse reaction; IV Status: Completed infusion kd3 05:45 Follow up: IV Status: Completed infusion; IV Intake: 1000ml dd2 Medication: 03:29 VIS not applicable for this client. dd2 Intake: 05:45 IV: 1000ml; Total: 1000ml. dd2 Outcome: 04:38 Decision to Hospitalize by Provider. rt 18:19 Patient left the ED. jb4 Signatures: Lyndsay Wallace James, RN RN jb4 Natacha Malcolm RN RN ld1 Samina Rodriguez, JACLYN RN kd3 Tanner Hodge MD MD rt SANJANA CHANG RN RN dd2
--- NOTE | 2024-10-30 04:39 | EDPHYS ---
Physician Documentation [facility] Name: Zain Hope Age: 73 yrs Sex: Male : 1950 Arrival Date: 10/30/2024 Time: 03:12 Bed 5 Private MD: ED Physician Tanner Hodge HPI: 10/30 03:21 This 73 yrs old Male presents to ER via Unassigned with complaints of Low HBG. rt 03:21 Patient presents to the ED from nursing for reportedly low hemoglobin, labs were drawn rt about 2 days ago, reportedly was 7.3. Denies any active bleeding. States that he feels a little bit dizzy but denies other acute complaints at this time, symptoms are moderate in severity, no other aggravating alleviating factors.. Historical: - Allergies: 03: No Known Allergies; dd2 - PMHx: :22 CAD; CVA; Depression; Diabetes - NIDDM; DYSPHAGIA; GERD; Hyperlipidemia; Hypertension; dd2 Hypothyroidism; Left sided weakness from previous CVA; CKD (Left sided weakness from previous CVA ); - PSHx: :22 None; dd2 - Immunization history:: Adult Immunizations unknown. - Infectious Disease History:: Denies. - Family history:: not pertinent. - Social history:: Smoking status: Patient denies any tobacco usage or history of. ROS: 03:21 Constitutional: Negative for fever, chills, and weight loss, Cardiovascular: Negative rt for chest pain, palpitations, and edema, Respiratory: Negative for shortness of breath, cough, wheezing, and pleuritic chest pain, Abdomen/GI: Negative for abdominal pain, nausea, vomiting, diarrhea, and constipation, MS/Extremity: Negative for injury and deformity, Skin: Negative for injury, rash, and discoloration, 03:21 Neuro: Positive for dizziness, Negative for loss of consciousness, Exam: 03:21 Constitutional: This is a well developed, well nourished patient who is awake, alert, rt and in no acute distress. Head/Face: Normocephalic, atraumatic. Chest/axilla: Normal chest wall appearance and motion. Nontender with no deformity. No lesions are appreciated. Cardiovascular: Regular rate and rhythm with a normal S1 and S2. No gallops, murmurs, or rubs. Normal PMI, no JVD. No pulse deficits. Respiratory: Lungs have equal breath sounds bilaterally, clear to auscultation and percussion. No rales, rhonchi or wheezes noted. No increased work of breathing, no retractions or nasal flaring. Abdomen/GI: Soft, non-tender, with normal bowel sounds. No distension or tympany. No guarding or rebound. No evidence of tenderness throughout. Skin: Warm, dry with normal turgor. Normal color with no rashes, no lesions, and no evidence of cellulitis. MS/ Extremity: Pulses equal, no cyanosis. Neurovascular intact. Full, normal range of motion. Neuro: Awake and alert, GCS 15, oriented to person, place, time, and situation. Cranial nerves II-XII grossly intact. Motor strength 5/5 in all extremities. Sensory grossly intact. Cerebellar exam normal. Normal gait. 04:06 ECG was reviewed by the Attending Physician. rt Vital Signs: 03:18 BP 139 / 78; Pulse 85; Resp 16; Temp 97.9; Pulse Ox 97% ; Weight 74.84 kg; Pain 4/10; dd2 04:30 BP 138 / 78; Pulse 72; Resp 16; Pulse Ox 99% on R/A; dd2 05:35 BP 128 / 80; Pulse 82; Resp 16; Pulse Ox 97% on R/A; dd2 06:45 BP 138 / 82; Pulse 70; Resp 16; Pulse Ox 96% on R/A; dd2 15:14 BP 131 / 97; Pulse 77; Resp 18; Pulse Ox 98% on R/A; ld1 03:18 Pain Scale: Adult dd2 [place] Coma Score: 03:29 Eye Response: spontaneous(4). Motor Response: obeys commands(6). Verbal Response: dd2 oriented(5). Total: 15. MDM: 03:14 Medical Screening Exam initiated rt 04:49 Differential Diagnosis Near syncope, dehydration, intravascular volume depletion, rt elevated troponin. Data reviewed: vital signs, nurses notes, lab test result(s), EKG. Consideration of Admission/Observation Patient was admitted/placed on observation. Management of patient was discussed with the following: Hospitalist: Agrees to admit. I considered the following discharge prescriptions or medication management in the emergency department Medications were administered in the Emergency Department. See MAR. Care significantly affected by the following chronic conditions: Diabetes, Hypertension. Counseling: I had a detailed discussion with the patient and/or guardian regarding the historical points, exam findings, and any diagnostic results supporting the discharge/admit diagnosis, lab results, radiology results, the need for further work-up and treatment in the hospital. Response to treatment: the patient's symptoms have mildly improved after treatment. 10/30 03:16 Order name: CBC with Diff; Complete Time: 04:08 rt 10/30 03:16 Order name: CMP; Complete Time: 04:08 rt 10/30 03:16 Order name: Type And Screen; Complete Time: 04:39 rt 10/30 03:16 Order name: Troponin High Sensitivity; Complete Time: 04:08 rt 10/30 08:32 Order name: Basic Metabolic Panel EDMS 10/30 08:32 Order name: Basic Metabolic Panel EDMS 10/30 08:32 Order name: Basic Metabolic Panel EDMS 10/30 08:32 Order name: Basic Metabolic Panel EDMS 10/30 08:32 Order name: Basic Metabolic Panel EDMS 10/30 08:32 Order name: Basic Metabolic Panel EDMS 10/30 08:32 Order name: Basic Metabolic Panel EDMS 10/30 08:32 Order name: Basic Metabolic Panel EDMS 10/30 08:32 Order name: CBC with Automated Diff EDMS 10/30 08:32 Order name: CBC with Automated Diff EDMS 10/30 08:32 Order name: CBC with Automated Diff EDMS 10/30 08:32 Order name: CBC with Automated Diff EDMS 10/30 08:32 Order name: CBC with Automated Diff EDMS 10/30 08:32 Order name: CBC with Automated Diff EDMS 10/30 08:32 Order name: CBC with Automated Diff EDMS 10/30 08:33 Order name: Urinalysis w/ reflexes EDMS 10/30 08:33 Order name: CBC with Automated Diff EDMS 10/30 08:33 Order name: Magnesium EDMS 10/30 08:33 Order name: Magnesium EDMS 10/30 08:33 Order name: Magnesium EDMS 10/30 08:33 Order name: Magnesium EDMS 10/30 08:33 Order name: Magnesium EDMS 10/30 08:33 Order name: Magnesium EDMS 10/30 08:33 Order name: Magnesium EDMS 10/30 08:33 Order name: Magnesium EDMS 10/30 08:33 Order name: Phosphorus EDMS 04/ 08:33 Order name: Phosphorus EDMS 10/30 08:33 Order name: Phosphorus EDMS / 08:33 Order name: Phosphorus EDMS 10/30 08:33 Order name: Phosphorus EDMS 10/30 08:33 Order name: Phosphorus EDMS 10/30 08:33 Order name: Phosphorus EDMS 10/30 08:33 Order name: Phosphorus EDMS 10/30 08:34 Order name: Packed RBC Leukored EDMS 10/30 08:34 Order name: Hematocrit EDMS 10/30 08:34 Order name: Hemoglobin EDMS 10/30 08:35 Order name: ABO/RH typing EDMS 10/30 08:35 Order name: Antibody Screen EDMS 10/30 08:45 Order name: Troponin High Sensitivity EDMS 10/30 08:45 Order name: Troponin High Sensitivity EDMS 10/30 12:41 Order name: Glucose, Ancillary Testing EDMS 10/30 16:43 Order name: Glucose, Ancillary Testing EDMS 10/30 03:16 Order name: EKG - Nurse/Tech; Complete Time: 04:00 rt EC:06 Rate is 84 beats/min. Rhythm is regular, Normal Sinus Rhythm with No ectopy. QRS [place] rt is Normal. LA interval is normal. QRS interval is normal. QT interval is normal. No Q waves. No ST changes noted. Interpreted by me. Administered Medications: 04:26 Drug: Acetaminophen PO 1000 mg PO once Route: PO; kd3 04:56 Follow up: Response: No adverse reaction dd2 05:45 Follow up: Response: No adverse reaction; Pain is decreased kd3 04:30 Drug: NS 0.9% IV 1000 ml IV at 1000 ml once; to be given as a bolus over 60 minutes dd2 Route: IV; Rate: 1000 ml; Site: right antecubital; 05:45 Follow up: Response: No adverse reaction; IV Status: Completed infusion kd3 05:45 Follow up: IV Status: Completed infusion; IV Intake: 1000ml dd2 Disposition Summary: 10/30/24 04:38 Hospitalization Ordered Notes: Hospitalization Status: Observation rt Provider: Karrie Leal rt Condition: Stable rt Problem: new rt Symptoms: have improved rt Bed/Room Type: Standard rt Location: Telemetry/MedSurg (observation)(10/30/24 17:04) ll1 Room Assignment: 228(10/30/24 17:04) ll1 Diagnosis - Near syncope rt - Elevated troponin rt - Elevated creatinine rt Forms: - Medication Reconciliation Form rt - SBAR form rt - Leadership Thank You Letter rt Signatures: Dispatcher [employer] Joelle Davis RN RN ll1 Samina Rodriguez RN RN kd3 Tanner Hodge MD MD rt Radha Ren rv1 SANJANA CHANG RN RN dd2 Corrections: (The following items were deleted from the chart) 05:09 04:38 Telemetry/MedSurg (observation) rt rv1 05:09 04:38 rt rv1 17:04 05:09 [facility] ER HOLD rv1 ll1 17:04 05:09 ERHOLD- rv1 1
[2024-10-30] MEDS ORDERED: ACETAMINOPHEN 325 MG TABLET PO PRN (08:27)
--- NOTE | 2024-10-30 08:42 | P.HP ---
Certification for Inpatient Patient admitted to: Observation With expected LOS: <2 Midnights Patient will require the following post-hospital care: None Practitioner: I am a practitioner with admitting privileges, knowledge of patient current condition, hospital course, and medical plan of care. Services: Services provided to patient in accordance with Admission requirements found in Title 42 Section 412.3 of the Code of Federal Regulations Patient History Date of Service: 10/30/24 Reason for admission: Drop in hgb, anemic History of Present Illness: Zain Hope is a 73 year old male with Pmhx CAD; CVA; Depression; Diabetes - NIDDM; DYSPHAGIA; GERD; Hyperlipidemia; Hypertension; who presents to the ED from the group home d/t a drop in Hgb at 7.3. Evaluation in the ED Hgb 7.6 and seems to have a history of Hgb 8 on average. Reportedly, no recent GI or bleed. Patient is not a good historian, review of the chart shows a colonoscopy in June last year with no clear findings. Laboratory evaluation significant for H&H 7.6/22.9, eosinophils 6.6, BUN/creatinine 24/1.96, GFR 35, troponin 64.5 Zain will be admitted to observation for blood transfusion and continued monitoring. Allergies No Known Allergies Allergy (Verified 07/12/24 13:00) Home Medications: Fluoxetine HCl 10 mg PO DAILY 12/18/20 Levothyroxine Sodium 25 mcg PO DAILY 12/18/20 Metformin HCl 1 tab PO BIDWM 12/18/20 Sennosides [Senna] 8.6 mg PO DAILY 12/18/20 Tramadol HCl [Ultram] 1 tab PO Q8HP PRN 12/18/20 levETIRAcetam [Keppra] 1 tab PO BID 12/18/20 ondansetron HCL [Zofran] 1 tab PO Q8H PRN 12/18/20 Atorvastatin Calcium [Lipitor*] 10 mg PO BEDTIME 03/02/24 Fluoxetine HCl 20 mg PO DAILY 03/02/24 Losartan Potassium 100 mg PO DAILY 03/02/24 Multivitamin [Multiple Vitamins] 1 each PO DAILY 03/02/24 Nitroglycerin [Nitrostat*] 0.4 mg SL SEECOM PRN 03/02/24 Pantoprazole [Protonix Tab] 40 mg PO BID #60 tab 03/05/24 Calcium Carbonate [Tums] 2 tab PO BID* PRN 07/12/24 Hydralazine [Apresoline] 25 mg PO BID 07/12/24 Lactulose 30 ml PO Q12HP PRN 07/12/24 - Past Medical/Surgical History -: T2DM -: CAD MIx2 -: CVA -: HTN -: HLD -: hypothyroidism -: CABG x 2 - Social History Smoking Status: Never smoker Alcohol use: No CD- Drugs: No Caffeine use: No Physical Examination - Physical Exam General: Alert, In no apparent distress, Oriented x1 HEENT: Atraumatic, Normocephalic, PERRLA Neck: Supple, 2+ carotid pulse no bruit Respiratory: Clear to auscultation bilaterally, Normal air movement Cardiovascular: Normal pulses, Regular rate/rhythm Capillary refill: <2 Seconds Gastrointestinal: Normal bowel sounds, Soft and benign Musculoskeletal: No clubbing Integumentary: No rashes Neurological: Normal speech, Normal tone - Studies Laboratory Data (last 24 hrs) 10/30/24 10/30/24 03:37 03:37 WBC 5.50 Hgb 7.6 L Hct 22.9 L Plt Count 213 Sodium 137 Potassium 4.6 BUN 24 H Creatinine 1.96 H Glucose 88 Total Bilirubin 0.3 AST < 10 L ALT < 14 L Alkaline Phosphatase 55 Assessment and Plan - Plan Assessment and Plan Anemia -H/H 7.6/22 -one unit PRBC transfusion -repeat H/H Elevated troponin -Troponin 64.5 -Serial troponin pending -Cardiology consulted CKD -BUN/creatinine 24/1.96, GFR 35 -Gentle IV fluids Diabetes - NIDDM -Accu-Chek with sliding scale insulin CAD CVA Depression DYSPHAGIA GERD Hyperlipidemia Hypertension -Continue home medication -Hold anticoagulant due to anemia DVT PPx SCD Full code 24-hour OBS Discharge Plan: Home Plan to discharge in: 24 Hours - Advance Directives Does patient have a Living Will: No Does patient have a Durable POA for Healthcare: No
[2024-10-30] MEDS ORDERED: NA CHLORIDE 0.9% 250 ML IV SCH (09:00)
[2024-10-30 10:17] VITALS: BMI 25.1
[2024-10-30] MEDS: NA CHLORIDE 0.9% 1,000 ML IV SCH (10:21)
--- NOTE | 2024-10-30 11:51 | P.CNS ---
Date of Consult: 10/30/24 Chief Complaint: Drop in hgb, anemic History of Present Illness: Patient with PMH of CAD s/p CABG, presented with near syncope, generalized weakness, dneies chest pain, no palpitation, no CHAPMAN, no lower extremities edema. Allergies No Known Allergies Allergy (Verified 07/12/24 13:00) Home medications list reviewed: Yes Home Medications: Fluoxetine HCl 10 mg PO DAILY 12/18/20 Levothyroxine Sodium 25 mcg PO DAILY 12/18/20 Metformin HCl 1 tab PO BIDWM 12/18/20 Sennosides [Senna] 8.6 mg PO DAILY 12/18/20 Tramadol HCl [Ultram] 1 tab PO Q8HP PRN 12/18/20 levETIRAcetam [Keppra] 1 tab PO BID 12/18/20 ondansetron HCL [Zofran] 1 tab PO Q8H PRN 12/18/20 Atorvastatin Calcium [Lipitor*] 10 mg PO BEDTIME 03/02/24 Fluoxetine HCl 20 mg PO DAILY 03/02/24 Losartan Potassium 100 mg PO DAILY 03/02/24 Multivitamin [Multiple Vitamins] 1 each PO DAILY 03/02/24 Nitroglycerin [Nitrostat*] 0.4 mg SL SEECOM PRN 03/02/24 Pantoprazole [Protonix Tab] 40 mg PO BID #60 tab 03/05/24 Calcium Carbonate [Tums] 2 tab PO BID* PRN 07/12/24 Hydralazine [Apresoline] 25 mg PO BID 07/12/24 Lactulose 30 ml PO Q12HP PRN 07/12/24 - Past Medical/Surgical History -: T2DM -: CAD MIx2 -: CVA -: HTN -: HLD -: hypothyroidism -: CABG x 2 - Social History Smoking Status: Former smoker Alcohol use: No CD- Drugs: No Caffeine use: No Review of Systems 10-point ROS is otherwise unremarkable Physical Examination General: Alert, In no apparent distress HEENT: Atraumatic, PERRLA, Mucous membr. moist/pink, EOMI, Sclerae nonicteric Neck: Supple, 2+ carotid pulse no bruit, No LAD, Without JVD or thyroid abnormality Respiratory: Clear to auscultation bilaterally, Normal air movement Cardiovascular: Regular rate/rhythm, Normal S1 S2 Gastrointestinal: Normal bowel sounds, No tenderness Musculoskeletal: No tenderness Integumentary: No rashes Neurological: Normal gait, Normal speech, Normal tone, Normal affect Lymphatics: No axilla or inguinal lymphadenopathy Laboratory Data (last 24 hrs) 10/30/24 10/30/24 03:37 03:37 WBC 5.50 Hgb 7.6 L Hct 22.9 L Plt Count 213 Sodium 137 Potassium 4.6 BUN 24 H Creatinine 1.96 H Glucose 88 Total Bilirubin 0.3 AST < 10 L ALT < 14 L Alkaline Phosphatase 55 - Problems (1) CAD (coronary artery disease) Current Visit: No Status: Chronic Plan: history of CABG x 2 back almost 3 years ago at [facility] please get records troponin mild elevated, continue to trend for 3 sets or until down trending. patient denies any active chest pain Troponin leak is most likely type 2 OH from anemia continue ASA 81 mg daily continue Lipitor 20 mg daily get echo Qualifiers: Coronary Disease-Associated Artery/Lesion type: bypass graft [place] vs. transplanted heart: [place] heart Associated angina: with unstable angina Qualified Code(s): I25.700 - Atherosclerosis of coronary artery bypass graft(s), unspecified, with unstable angina pectoris (2) HLD (hyperlipidemia) Current Visit: No Status: Chronic Plan: increase lipitor to 20 mg daily Qualifiers: Hyperlipidemia type: unspecified Qualified Code(s): E78.5 - Hyperlipidemia, unspecified (3) HTN (hypertension) Current Visit: No Status: Chronic Plan: resume patient home dose Losartan 100 mg daily add coreg 3.125 mg po BID Stop Hydralazine Qualifiers: Hypertension type: essential hypertension Qualified Code(s): I10 - Essential (primary) hypertension
[2024-10-30] MEDS: INSULIN REGULAR (HUMAN) 100 UNIT/ML SQ SCH (12:31)
--- NOTE | 2024-10-30 12:32 | EKG ---
Test Date: 2024-10-30 Test Time: 03:52:51 Automatic Pad Making Machine Operator: SREE MEASUREMENT RESULTS: Intervals: Rate: 84 NM: 164 QRSD: 108 QT: 388 QTc: 458 [place]: P: 67 NM: 164 QRS: -1 T: 23 INTERPRETIVE STATEMENTS: Normal sinus rhythm with sinus arrhythmia Inferior infarct, age undetermined Cannot rule out Anterior infarct, age undetermined Abnormal ECG Compared to ECG 03/01/2024 17:49:00 Fusion complex(es) no longer present Myocardial infarct finding still present Electronically Signed On 10-30-24 12:31:57 CDT by Marco A Carreno
[2024-10-30] MEDS ORDERED: NA CHLORIDE 0.9% 250 ML ONE (13:02)
[2024-10-30] MEDS ORDERED: FUROSEMIDE 20 MG/ 2ML VIAL ONE (16:55)
[2024-10-30] MEDS: FUROSEMIDE 20 MG/ 2ML VIAL IV ONE (17:05)
[2024-10-30 18:55] VITALS: O2SAT 98
[2024-10-30 22:40] LABS: Hematocrit 28.7 % (39.6-49.0); Hemoglobin 9.6 g/dL (13.6-17.9)
[2024-10-31 02:30] LABS: Specific Gravity 1.011 (1.005-1.030); Urine Bilirubin NEGATIVE (Negative); Urine Blood Negative (Negative); Urine Clarity Clear (Clear); Urine Color Colorless (Yellow); Urine Glucose NEGATIVE (Negative); Urine Ketones NEGATIVE (Negative); Urine Microscopic Reflex YN NO UMIC; Urine Nitrite NEGATIVE (Negative); Urine Protein NEGATIVE (Negative); Urine Urobilinogen Normal (Normal)
[2024-10-31 05:25] LABS: Absolute Basophils 0.1 K/uL (0-0.5); Absolute Eosinophils 0.3 K/uL (0-0.5); Absolute Lymphocytes (CBC) 1.6 K/uL (0.7-4.9); Absolute Monocytes 0.6 K/uL (0.1-1.3); Absolute Neutrophil 4.3 K/uL (1.8-8.0); Basophils % 0.9 % (0-1.3); Eosinophils % 4.8 % (0-4.4); Hemoglobin 9.5 g/dL (13.6-17.9); Lymphocytes % 22.8 % (15.3-44.8); MCH 25.3 pg (27.0-35.0); MCHC 32.7 g/dL (32.0-36.0); MCV 77.4 fL (80-100); Monocytes % 8.9 % (3.3-12.3); Neutrophils % 62.6 % (41.7-73.7); Nucleated Red Blood Cells % 0.1 % (0-0); Platelets 218 thou/uL (152-406); RBC Red Blood Cell Count 3.75 M/uL (4.33-5.43); Red Cell Distribution Width 18.7 % (12.1-15.2)
[2024-10-31 05:46] LABS: Anion Gap 9.5 mEq/L (5.0-15.0); Magnesium 1.7 mg/dL (1.6-2.4); Phosphorus 3.8 mg/dL (2.5-4.9); Potassium 4.5 mEq/L (3.5-5.1)
--- NOTE | 2024-10-31 09:21 | P.DS ---
Admission Date: 10/30/24 Discharge Date: 10/31/24 Disposition: TRANSFER TO [facility] Discharge Condition: GOOD Reason for Admission: Drop in hgb, anemic Brief History of Present Illness: Zain Hope is a 73 year old male with Pmhx CAD; CVA; Depression; Diabetes - NIDDM; DYSPHAGIA; GERD; Hyperlipidemia; Hypertension; who presents to the ED from the [facility] d/t a drop in Hgb at 7.3. Evaluation in the ED Hgb 7.6 and seems to have a history of Hgb 8 on average. Reportedly, no recent GI or bleed. Patient is not a good historian, review of the chart shows a colonoscopy in June last year with no clear findings. Laboratory evaluation significant for H&H 7.6/22.9, eosinophils 6.6, BUN/creatinine 24/1.96, GFR 35, troponin 64.5 Zain will be admitted to observation for blood transfusion and continued monitoring. Vital Signs/Physical Exam: Temp Pulse Resp BP Pulse Ox 98.2 F 73 20 123/64 97 10/31/24 08:00 10/31/24 08:00 10/31/24 08:00 10/31/24 08:00 10/31/24 08:00 Laboratory Data at Discharge: WBC 6.90 thou/uL (4.3-10.9) 10/31/24 05:10 Hgb 9.5 g/dL (13.6-17.9) L 10/31/24 05:10 Hct 29.0 % (39.6-49.0) L 10/31/24 05:10 Plt Count 218 thou/uL (152-406) 10/31/24 05:10 Sodium 137 mEq/L (136-145) 10/31/24 05:10 Potassium 4.5 mEq/L (3.5-5.1) 10/31/24 05:10 BUN 24 mg/dL (7-18) H 10/31/24 05:10 Creatinine 1.82 mg/dL (0.70-1.30) H 10/31/24 05:10 Glucose 98 mg/dL (74-106) 10/31/24 05:10 Phosphorus 3.8 mg/dL (2.5-4.9) 10/31/24 05:10 Magnesium 1.7 mg/dL (1.6-2.4) 10/31/24 05:10 Total Bilirubin 0.3 mg/dL (0.2-1.0) 10/30/24 03:37 AST < 10 U/L (15-37) L 10/30/24 03:37 ALT < 14 U/L (16-61) L 10/30/24 03:37 Alkaline Phosphatase 55 U/L (45-117) 10/30/24 03:37 Home Medications: Fluoxetine HCl 10 mg PO DAILY 12/18/20 Levothyroxine Sodium 25 mcg PO DAILY 12/18/20 Metformin HCl 1 tab PO BIDWM 12/18/20 Sennosides [Senna] 8.6 mg PO DAILY 12/18/20 Tramadol HCl [Ultram] 1 tab PO Q8HP PRN 12/18/20 levETIRAcetam [Keppra] 1 tab PO BID 12/18/20 ondansetron HCL [Zofran] 1 tab PO Q8H PRN 12/18/20 Atorvastatin Calcium [Lipitor*] 10 mg PO BEDTIME 03/02/24 Fluoxetine HCl 20 mg PO DAILY 03/02/24 Losartan Potassium 100 mg PO DAILY 03/02/24 Multivitamin [Multiple Vitamins] 1 each PO DAILY 03/02/24 Nitroglycerin [Nitrostat*] 0.4 mg SL SEECOM PRN 03/02/24 Pantoprazole [Protonix Tab] 40 mg PO BID #60 tab 03/05/24 Calcium Carbonate [Tums] 2 tab PO BID* PRN 07/12/24 Hydralazine [Apresoline] 25 mg PO BID 07/12/24 Lactulose 30 ml PO Q12HP PRN 07/12/24 Followup: Anjum Armstrong MD [Primary Care Provider] - 1-2 Weeks
[2024-10-31 12:27] VITALS: BP 132/79; TEMP 98.7
--- NOTE | 2024-10-31 12:35 | ECHO ---
HEIGHT: 5 ft 8 in WEIGHT: 165 lb 5.547 oz DATE OF STUDY: 10/31/[address]: Michael Kelsey MD 2-DIMENSIONAL: YES M.MODE: YES DOPPLER: YES COLOR FLOW: YES TDS: PORTABLE: YES DEFINITY: BUBBLE STUDY: DIAGNOSIS: NON ST ELEVATION MYOCARDIAL INFARCTION CARDIAC HISTORY: CATHERIZATION: YES SURGERY: PROSTHETIC VALVE: PACEMAKER: MEASUREMENTS (cm) DIASTOLIC (NORMALS) SYSTOLIC (NORMALS) IVSd 1.1 (0.6-1.2) LA Diam 3.7 (1.9-4.0) LVEF 15-20% LVIDd 4.4 (3.5-5.7) LVIDs 4.1 (2.0-3.5) %FS 6% LVPWd 1.3 (0.6-1.2) Ao Diam 2.7 (2.0-3.7) 2 DIMENSIONAL ASSESSMENT: RIGHT ATRIUM: NORMAL LEFT ATRIUM: NORMAL RIGHT VENTRICLE: NORMAL LEFT VENTRICLE: NORMAL TRICUSPID VALVE: MILD TRICUSPID REGURGITATION MITRAL VALVE: TRACE MITRAL REGURGITATION PULMONIC VALVE: NORMAL AORTIC VALVE: TRACE AORTIC REGURGITATION PERICARDIAL EFFUSION: NONE AORTIC ROOT: NORMAL LEFT VENTRICULAR WALL MOTION: SEVERE GLOBAL HYPOKINESIS WITH ANTERIOR, ANTEROSEPTAL AND APICAL WALL AKINESIS DOPPLER/COLOR FLOW: DIASTOLIC DYSFUNCTION COMMENTS: 1. SEVERELY REDUCED LEFT VENTRICULAR SYSTOLIC FUNCTION, EJECTION FRACTION 15-20%, WALL MOTION ABNORMALITIES ABOVE. 2. DIASTOLIC DYSFUNCTION 3. NORMAL FILLING PRESSURE (RIGHT ATRIAL PRESSURE 0-5 mmHg) TECHNOLOGIST: GALE BARFIELD
== END 2024-10-31 14:05 ==
LOC: ER 03:12 → ERHOLD 08:27 → 2ND 17:24
PROVIDERS: ADMIT Internal Medicine; ATTEND Internal Medicine
DX: D64.9 Anemia, unspecified (principal); I25.10 Atherosclerotic heart disease of native coronary artery without angina pectoris; R53.1 Weakness; F32.A Depression, unspecified; E11.9 Type 2 diabetes mellitus without complications; K21.9 Gastro-esophageal reflux disease without esophagitis; R47.02 Dysphasia; R55 Syncope and collapse; E78.5 Hyperlipidemia, unspecified; I10 Essential (primary) hypertension; R79.89 Other specified abnormal findings of blood chemistry; N18.9 Chronic kidney disease, unspecified; Z86.73 Personal history of transient ischemic attack (TIA), and cerebral infarction without residual deficits; Z95.1 Presence of aortocoronary bypass graft
CPT/HCPCS: 36415; 36430; 80048; 80053; 81003; 82947; 83735; 84100; 84484; 85014; 85018; 85025; 86850; 86900; 86901; 86920; 93005; 93306; 96360; 99284; G0378; J1940; J7030; J7050; P9016

== ENCOUNTER 2025-03-05 04:45 | Emergency (ER) | payer OTHER ==
[2025-03-05] MEDS ORDERED: DERMABOND SKIN ADHESIVE TOP ONE (05:55)
--- NOTE | 2025-03-05 06:57 | ER ---
Nurse's Notes [facility] Name: Zain Hope Age: 74 yrs Sex: Male : 1950 Arrival Date: 03/05/2025 Time: 04:45 Bed 20 Private MD: Diagnosis: Unspecified injury of head, initial encounter;Laceration without foreign body of unspecified part of head Presentation: 03/05 05:34 Chief complaint: EMS states: Fall. Coronavirus screen: At this time, unable to obtain sd4 information related to travel outside the [place] Ebola Screen: No symptoms or risks identified at this time. Initial Sepsis Screen: Does the patient meet any 2 criteria? No. Patient's initial sepsis screen is negative. Does the patient have a suspected source of infection? No. Patient's initial sepsis screen is negative. Risk Assessment: Do you want to hurt yourself or someone else? Patient reports no desire to harm self or others. 05:34 Method Of Arrival: EMS sd4 05:34 Acuity: BRYANT 3 sd4 07:11 Onset of symptoms was March 05, 2025. tb4 Triage Assessment: 05:34 General: Appears in no apparent distress. Behavior is calm, cooperative, appropriate sd4 for age. Pain: Complains of pain in top of head Pain. EENT: Neuro: Level of Consciousness is awake, alert, confused, Oriented to person, place, Reports headache. Cardiovascular: No deficits noted. Respiratory: No deficits noted. Airway is patent GI: No deficits noted. No signs and/or symptoms were reported involving the gastrointestinal system. : Parent/caregiver report the patient having incontinence. Derm: No deficits noted. No signs and/or symptoms reported regarding the dermatologic system. Injury Description: Head injury sustained to top of head. Historical: - Allergies: 07:05 No Known Allergies; tb4 - Home Meds: 07:05 fluoxetine 10 mg Oral capsule 1 cap daily [Active]; fluoxetine 20 mg Oral capsule 1 cap tb4 daily [Active]; metformin 1 Oral tablet 1 tab 2 times per day for Type 2 Diabetes Mellitus [Active]; losartan 100 mg Oral tablet 1 tab daily for Hypertension [Active]; levothyroxine 25 mcg capsule 1 cap daily for Hypothyroidism [Active]; metoprolol tartrate 50 mg Oral tablet 1 tab 2 times per day for Hypertension [Active]; Keppra 500 mg Oral tablet 1 tabs 2 times per day [Active]; hydralazine 25 mg Oral tablet 2 tabs 3 times per day for Hypertension [Active]; ticagrelor 90 mg Oral tablet 1 tab 2 times per day [Active]; - PMHx: 07:05 CAD; CKD (Left sided weakness); Depression; CVA; DYSPHAGIA; GERD; Hyperlipidemia; tb4 Hypertension; Hypothyroidism; Diabetes - NIDDM; Left 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 - Infectious Disease History:: Denies. unknown. - Family history:: not pertinent. - Social history:: Smoking status: unknown. - Hospitalizations: : No recent hospitalization is reported. Screenin:[facility] ED Fall Risk Assessment (Adult) History of falling in the last 3 months, tb4 including since admission Yes- single mechanical fall (1 pt) Confusion or Disorientation No (0 pts) Intoxicated or Sedated No (0 pts) Impaired Gait Yes (1 pt) Mobility Assist Device Used Yes (1 pt) Altered Elimination No (0 pt) Score/Fall Risk Level 3 or more points = High Risk Oriented to surroundings, Maintained a safe environment, Educated pt \T\ family on fall prevention, incl call for assistance when getting out of bed, Hourly rounding (assess needs \T\ fall precautionary measures) done. [facility] ED Fall Risk Assessment (Adult) Altered Elimination Score/Fall Risk Level. [facility] ED Fall Risk Assessment (Adult) Score/Fall Risk Level 3 or more points = High Risk. Abuse screen: Denies threats or abuse. Nutritional screening: No deficits noted. Tuberculosis screening: No symptoms or risk factors identified. Assessment: 06:08 Reassessment: wound care done. small cut noted on top on pt head. sd4 07:03 Reassessment: Patient is alert, oriented x 3, equal unlabored respirations, skin tb4 warm/dry/pink. Patient in bed with eyes open, no s/s of distress noted. General: Appears in no apparent distress. Behavior is calm, cooperative. Neuro: No deficits noted. Level of Consciousness is awake, alert, obeys commands, Oriented to person, place, time, situation, Education Sales Consultant are equal bilaterally Moves all extremities. Full function Speech is normal. Respiratory: No deficits noted. Airway is patent Trachea midline Respiratory effort is even, unlabored, Respiratory pattern is regular, symmetrical. GI: No signs and/or symptoms were reported involving the gastrointestinal system. : No signs and/or symptoms were reported regarding the genitourinary system. Vital Signs: 05:34 BP 155 / 87; Pulse 78; Resp 20; Temp 98.1; Pulse Ox 98% ; sd4 07:09 BP 124 / 84; Pulse 71; Resp 18; Pulse Ox 100% on R/A; tb4 [place] Coma Score: 05:09 Eye Response: spontaneous(4). Motor Response: obeys commands(6). Verbal Response: rn oriented(5). Total: 15. ED Course: 04:46 Patient arrived in ED. vk 04:46 Deejay Bazzi MD is Attending Physician. rn 04:50 Julia Ortiz RN is Primary Nurse. sd4 05:34 Arm band placed on right wrist. sd4 05:38 Triage completed. sd4 05:41 CT Head C Spine In Process Unspecified. EDMS 07:00 Patient has correct armband on for positive identification. Bed in low position. Call tb4 light in reach. Client placed on continuous cardiac and pulse oximetry monitoring. NIBP monitoring applied. 07:00 No provider procedures requiring assistance completed. Patient did not have IV access tb4 during this emergency room visit. 07:09 Provided Education on: Follow up if need. Report given to Cindy bedoya [place]. tb4 Administered Medications: No medications were administered Medication: 07:02 VIS not applicable for this client. tb4 Outcome: 06:56 Discharge ordered by . rn 07:09 Discharged to snf. Report called to Cindy tb4 07:09 Condition: stable 07:09 Discharge instructions given to patient, snf, Instructed on discharge instructions, follow up and referral plans. Demonstrated understanding of instructions, follow-up care, 07:47 Patient left the ED. ap3 Signatures: Dispatcher [employer] EDMS Deejay Bazzi MD MD rn Prokisch, Amanda, RN RN ap3 Makeda Catalan Terri, RN RN tb4 Julia Ortiz RN RN sd4
--- NOTE | 2025-03-05 06:57 | EDPHYS ---
Physician Documentation [facility] Name: Zain Hope Age: 74 yrs Sex: Male : 1950 Arrival Date: 03/05/2025 Time: 04:45 Bed 20 Private MD: ED Physician Deejay Bazzi HPI: 03/05 05:09 This 74 yrs old Male presents to ER via Unassigned with complaints of head rn injury. 05:09 The patient or guardian reports injury, a laceration. The complaints affect the top of rn head. Onset: The symptoms/episode began/occurred just prior to arrival. Patient brought by EMS after fall out of bed, minor head injury with small laceration to top of head. Patient reports only pain to head. Denies extremity injury or chest pain or abdominal pain or back pain. residential reports patient is at baseline mentally. Historical: - Allergies: 07:05 No Known Allergies; tb4 - Home Meds: 07:05 fluoxetine 10 mg Oral capsule 1 cap daily [Active]; fluoxetine 20 mg Oral capsule 1 cap tb4 daily [Active]; metformin 1 Oral tablet 1 tab 2 times per day for Type 2 Diabetes Mellitus [Active]; losartan 100 mg Oral tablet 1 tab daily for Hypertension [Active]; levothyroxine 25 mcg capsule 1 cap daily for Hypothyroidism [Active]; metoprolol tartrate 50 mg Oral tablet 1 tab 2 times per day for Hypertension [Active]; Keppra 500 mg Oral tablet 1 tabs 2 times per day [Active]; hydralazine 25 mg Oral tablet 2 tabs 3 times per day for Hypertension [Active]; ticagrelor 90 mg Oral tablet 1 tab 2 times per day [Active]; - PMHx: 07:05 CAD; CKD (Left sided weakness); Depression; CVA; DYSPHAGIA; GERD; Hyperlipidemia; tb4 Hypertension; Hypothyroidism; Diabetes - NIDDM; Left 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 - Infectious Disease History:: Denies. unknown. - Family history:: not pertinent. - Social history:: Smoking status: unknown. - Hospitalizations: : No recent hospitalization is reported. ROS: 05:09 Constitutional: Negative for fever, chills, and weight loss, Eyes: Negative for injury, rn pain, redness, and discharge, Neck: Negative for injury, pain, and swelling, Cardiovascular: Negative for chest pain, palpitations, and edema, Respiratory: Negative for shortness of breath, cough, wheezing, and pleuritic chest pain, Abdomen/GI: Negative for abdominal pain, nausea, vomiting, diarrhea, and constipation, Back: Negative for injury and pain, MS/Extremity: Negative for injury and deformity, Neuro: Positive for mild headache Exam: 05:09 Constitutional: This is a well developed, well nourished patient who is awake, alert, rn and in no acute distress. Patient is joking and laughing Head/Face: Normocephalic, 1 cm superficial laceration top of head. No active bleeding. No foreign body. No depression. Neck: No midline cervical tenderness Chest/axilla: No rib tenderness or crepitus Cardiovascular: Regular rate and rhythm. No pulse deficits. Respiratory: No increased work of breathing, no retractions or nasal flaring. Abdomen/GI: Soft, non-tender Back: No spinal tenderness. MS/ Extremity: Pulses equal, no cyanosis. Neurovascular intact. Full, normal range of motion. Equal circumference. Neuro: Awake and alert, GCS 15, residual left sided deficits from previous stroke, otherwise normal strength and movement in other extremities. Vital Signs: 05:34 BP 155 / 87; Pulse 78; Resp 20; Temp 98.1; Pulse Ox 98% ; sd4 07:09 BP 124 / 84; Pulse 71; Resp 18; Pulse Ox 100% on R/A; tb4 [place] Coma Score: 05:09 Eye Response: spontaneous(4). Motor Response: obeys commands(6). Verbal Response: rn oriented(5). Total: 15. Laceration: 06:16 Wound Repair of 1cm ( 0.4in ) subcutaneous laceration to top of head. Distal rn neuro/vascular/tendon intact. Skin closed with 1 thin layer Adhesive skin closure using Dermabond. Patient tolerated well. MDM: 04:46 Medical Screening Exam initiated rn 03/05 04:48 Order name: CT Head C Spine; Complete Time: 07:02 rn 03/05 04:48 Order name: Wound Care; Complete Time: 06:09 rn 03/05 04:48 Order name: Dermabond; Complete Time: 06:05 rn Administered Medications: No medications were administered Disposition Summary: 03/05/25 06:56 Discharge Ordered Notes: Location: Home rn Problem: new rn Symptoms: have improved rn Condition: Stable rn Diagnosis - Unspecified injury of head, initial encounter rn - Laceration without foreign body of unspecified part of head rn Followup: rn - With: Private Physician - When: As needed - Reason: Recheck today's complaints, Re-evaluation by your physician Discharge Instructions: - Discharge Summary Sheet rn - Tissue Adhesive graduate rn - Head Injury, Adult rn - Laceration Care, Adult rn Forms: - Medication Reconciliation Form rn - Antibiotic 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 Patient reports only pain to head. Denies extremity injury or chest pain or abdominal pain or back pain.. rn
--- NOTE | 2025-03-05 07:00 | RAD REPORT ---
EXAM: CT Head and Cervical Spine Without Intravenous Contrast CLINICAL HISTORY: The patient is 74 years old and is Male; Fall, head injury. TECHNIQUE: Axial computed tomography images of the head/brain and cervical spine without intravenou s contrast. Sagittal and coronal reformatted images were created and reviewed. This CT exam was performed using one or more of the following dose reduction techniques: automated exposure control, adjustment of the mA and/or kV according to patient size, and/or use of iterative reconstruction technique. COMPARISON: CT Head 02/03/[address] Head and Cervical Spine 02/20/2024. FINDINGS: Brain: Right cerebral encephalomalacia from old infarct within the right MCA vascular distributio n. No hemorrhage. No significant white matter disease. Ventricles: Unremarkable. No ventriculomegaly. Skull: No acute skull fracture. Sinuses: Unremarkable as visualized. No acute sinusitis. Mastoid air cells: No significant mastoid fluid. Vertebrae: No acute cervical spine fracture. Mild degenerative facet arthropathy on the left, with associated left neural foraminal narrow ing. Lateral alignment is maintained. Discs/spinal canal/neural foramina: See also above. Degenerative disc disease C3-4 to C6-7. No sign ificant central canal stenosis. Other bones/joints: Old fracture left zygomatic arch. Soft tissues: Unremarkable. Pleural space: No apical pneumothorax. IMPRESSION: 1. No intracranial hemorrhage. No acute skull fracture. 2. 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 3. No acute cervical spine fracture. 4. Degenerative changes as above. Electronically signed by: Sara Arroyo MD 03/05/2025 06:54 AM T V2 Due to temporary technical issues with the PACS/[employer] reporting system, reports are being cecilia d by the in-house radiologist without review as a courtesy to ensure prompt reporting the interpreting radiologist is fully responsible for the content of the report. Transcribed Date/Time: 03/05/2025 7:00 AM
[2025-03-05 07:54] VITALS: TEMP 98.1
[2025-03-05 07:55] VITALS: BP 124/84; O2SAT 100
== END 2025-03-05 07:47 | disposition home or self-care (01) ==
LOC: ER 04:45
DX: S01.81XA Laceration without foreign body of other part of head, initial encounter (principal); W06.XXXA Fall from bed, initial encounter
CPT/HCPCS: 12001; 70450; 72125; 99283

== ENCOUNTER 2025-03-24 11:23 | Inpatient (IN) | payer OTHER ==
[2025-03-24 11:56] LABS: Absolute Lymphocytes (CBC) 1.3 K/uL (0.7-4.9); Hematocrit 35.6 % (39.6-49.0); Hemoglobin 11.5 g/dL (13.6-17.9); MCH 27.5 pg (27.0-35.0); MCHC 32.3 g/dL (32.0-36.0); MCV 85.1 fL (80-100); MPV 8.0 fL (7.6-11.3); Nucleated RBC Absolute Count 0.0 (0-0); Nucleated Red Blood Cells % 0.0 % (0-0); RBC Red Blood Cell Count 4.19 M/uL (4.33-5.43); White Blood Count 7.70 thou/uL (4.3-10.9)
[2025-03-24 12:03] LABS: PT Prothrombin Time 12.3 SECONDS (10-13.0); Protime INR 1.09
[2025-03-24 12:22] LABS: Anion Gap 13.4 mEq/L (5.0-15.0); BUN Blood Urea Nitrogen 23.0 mg/dL (7-18); Glucose Level 181.0 mg/dL (74-106); Potassium 4.4 mEq/L (3.5-5.1)
[2025-03-24 12:23] LABS: ALT/SGPT 19.0 U/L (16-61); AST/SGOT 5.0 U/L (15-37); Albumin 3.1 g/dL (3.4-5.0); Albumin/Globulin Ratio 0.8 (1.1-1.8); Alkaline Phosphatase 63.0 U/L (45-117); Bilirubin Indirect, Calculated 0.5 mg/dL (0.2-0.8); Globulin 3.7 g/dL (2.3-3.5)
[2025-03-24 12:24] LABS: Magnesium 2.1
[2025-03-24 12:26] LABS: Troponin High Sensitivity 100.0 (<58.9)
--- NOTE | 2025-03-24 12:29 | RAD REPORT ---
Procedure: Chest Single View HISTORY: Shortness of breath COMPARISON: 2023 FINDINGS: The lungs appear clear of acute infiltrate. No significant pleural effusion noted. The heart is moderately enlarged. Post surgical changes involve the chest. IMPRESSION: No acute abnormality is displayed.
--- NOTE | 2025-03-24 13:47 | ER ---
Nurse's Notes [facility] Name: Zain Hope Age: 74 yrs Sex: Male : 1950 Arrival Date: 03/24/2025 Time: 11:23 Bed 13 Private MD: Diagnosis: Subsequent non-ST elevation (NSTEMI) myocardial infarction;Shortness of breath Presentation: 03/24 11:30 Chief complaint: EMS states: Per EMS, [place] states that patient was in respiratory ar8 distress. Patient denies SOB, c/o cough and WILCOX x2 days. 11:30 Coronavirus screen: At this time, the client does not indicate any symptoms associated ar8 with coronavirus-19. Ebola Screen: No symptoms or risks identified at this time. Initial Sepsis Screen: Does the patient meet any 2 criteria? No. Patient's initial sepsis screen is negative. Does the patient have a suspected source of infection? No. Patient's initial sepsis screen is negative. Risk Assessment: Do you want to hurt yourself or someone else? Patient reports no desire to harm self or others. Onset of symptoms was March 22, 2025. 11:30 Method Of Arrival: EMS: [facility] ar8 11:30 Acuity: BRYANT 3 ar8 Triage Assessment: 11:50 General: Appears in no apparent distress. Behavior is calm, cooperative, appropriate ar8 for age. Pain: Complains of pain in forehead Pain currently is 4 out of 10 on a pain scale. Quality of pain is described as dull. Neuro: No deficits noted. Level of Consciousness is awake, alert, obeys commands, Oriented to person, place, time, situation. Cardiovascular: No deficits noted. Capillary refill < 3 seconds Patient's skin is warm and dry. Respiratory: Reports cough that is productive, Airway is patent Respiratory effort is even, unlabored, Respiratory pattern is regular, symmetrical. GI: No deficits noted. : No deficits noted. Historical: - Allergies: 11:50 No Known Allergies; ar8 - Home Meds: 11:50 fluoxetine 10 mg Oral capsule 1 cap daily [Active]; fluoxetine 20 mg Oral capsule 1 cap ar8 daily [Active]; hydralazine 25 mg Oral tablet 2 tabs 3 times per day for Hypertension [Active]; Keppra 500 mg Oral tablet 1 tabs 2 times per day [Active]; levothyroxine 25 mcg capsule 1 cap daily for Hypothyroidism [Active]; ticagrelor 90 mg Oral tablet 1 tab 2 times per day [Active]; senna 8.6 mg Oral capsule 1 cap once for constipation [Active]; metoprolol tartrate 50 mg Oral tablet 1 tab 2 times per day for Hypertension [Active]; metformin 1 Oral tablet 1 tab 2 times per day for Type 2 Diabetes Mellitus [Active]; losartan 100 mg Oral tablet 1 tab daily for Hypertension [Active]; - PMHx: 11:50 Left sided weakness from previous CVA; CVA; Depression; Diabetes - NIDDM; DYSPHAGIA; ar8 GERD; Hyperlipidemia; Hypertension; Hypothyroidism; CKD (Left sided weakness); CAD; - Immunization history:: Adult Immunizations unknown. - Infectious Disease History:: Denies. - Social history:: Smoking status: Patient denies any tobacco usage or history of. Screenin:54 [facility] ED Fall Risk Assessment (Adult) History of falling in the last 3 months, ar8 including since admission No falls in past 3 months (0 pts) Confusion or Disorientation No (0 pts) Intoxicated or Sedated No (0 pts) Impaired Gait Yes (1 pt) Mobility Assist Device Used Yes (1 pt) Altered Elimination No (0 pt) Score/Fall Risk Level 0 - 2 = Low Risk Oriented to surroundings, Maintained a safe environment. Abuse screen: Denies threats or abuse. Nutritional screening: No deficits noted. Tuberculosis screening: No symptoms or risk factors identified. Assessment: 11:54 Reassessment: see triage assessment. ar8 15:18 Reassessment: Patient and/or family updated on plan of care and expected duration. Pain ar8 level reassessed. Patient is alert, oriented x 3, equal unlabored respirations, skin warm/dry/pink. 16:12 Reassessment: Patient and/or family updated on plan of care and expected duration. Pain ar8 level reassessed. Patient is alert, oriented x 3, equal unlabored respirations, skin warm/dry/pink. Vital Signs: 11:30 BP 138 / 72; Pulse 87; Resp 17 S; Temp 98.6(O); Pulse Ox 93% on R/A; Weight 86.18 kg; ar8 Height 5 ft. 9 in. ; Pain 4/10; 13:15 BP 137 / 75; Pulse 82; Resp 16; Pulse Ox 98% on 2 lpm NC; ar8 14:56 BP 141 / 86; Pulse 87; Resp 16; Pulse Ox 98% on R/A; ar8 15:30 BP 141 / 81; Pulse 85; Resp 16; Temp 98.2(O); Pulse Ox 98% on 2 lpm NC; ar8 16:30 BP 139 / 81; Pulse 84; Resp 19; Pulse Ox 98% on 2 lpm NC; ar8 17:45 BP 149 / 85; Pulse 95; Resp 20; Pulse Ox 98% on 2 lpm NC; ar8 11:30 Body Mass Index 28.06 (86.18 kg, 175.26 cm) ar8 11:30 Pain Scale: Adult ar8 ED Course: 11:26 Patient arrived in ED. ll1 11:30 Jose Maria Malcolm DO is Attending Physician. ms3 11:35 Bill Leon, RN is Primary Nurse. ar8 11:46 No provider procedures requiring assistance completed. Inserted saline lock: 22 gauge ar8 in right forearm, using aseptic technique. Blood collected. Flushed with 10 mL NS. 11:50 Triage completed. ar8 11:50 Arm band placed on right wrist. ar8 11:54 Bed in low position. Call light in reach. Side rails up X2. Provided Education on: plan ar8 of care. 12:23 XRAY Chest (1 view) In Process Unspecified. EDMS 13:45 Karrie Leal MD is Hospitalizing Provider. ms3 17:59 Diet: Patient given a regular meal tray. Tolerated well. ar8 18:21 Patient admitted, IV remains in place. ar8 Administered Medications: No medications were administered Medication: 11:54 VIS not applicable for this client. ar8 Outcome: 13:46 Decision to Hospitalize by Provider. ms3 18:21 Patient left the ED. ll1 18:21 Admitted to Med/surg accompanied by nurse, family with patient, via stretcher, room ar8 204, Report called to faxed to charge nurse 18:21 Condition: stable 18:21 Discharge instructions given to N/A Signatures: Dispatcher [employer] EDMS Joelle Larkin, JACLYN RN ll1 Jose Maria Malcolm DO DO ms3 Bill Leon, RN RN ar8
--- NOTE | 2025-03-24 13:47 | EDPHYS ---
Physician Documentation [facility] Name: Zain Hope Age: 74 yrs Sex: Male : 1950 Arrival Date: 03/24/2025 Time: 11:23 Bed 13 Private MD: ED Physician Jose Maria Malcolm HPI: 03/24 14:40 This 74 yrs old Male presents to ER via EMS with complaints of shortness of ms3 breath. 14:40 74-year-old male with past medical history of CVA, depression, diabetes, ms3 dysphagia presents to the emergency department for shortness of breath began this morning. Patient endorses cough and states his shortness of breath improved after application of nasal cannula oxygen. Patient denies inciting factors. Patient denies pain. Patient denies fevers or chills. Historical: - Allergies: 11:50 No Known Allergies; ar8 - Home Meds: 11:50 fluoxetine 10 mg Oral capsule 1 cap daily [Active]; fluoxetine 20 mg Oral capsule 1 cap ar8 daily [Active]; hydralazine 25 mg Oral tablet 2 tabs 3 times per day for Hypertension [Active]; Keppra 500 mg Oral tablet 1 tabs 2 times per day [Active]; levothyroxine 25 mcg capsule 1 cap daily for Hypothyroidism [Active]; ticagrelor 90 mg Oral tablet 1 tab 2 times per day [Active]; senna 8.6 mg Oral capsule 1 cap once for constipation [Active]; metoprolol tartrate 50 mg Oral tablet 1 tab 2 times per day for Hypertension [Active]; metformin 1 Oral tablet 1 tab 2 times per day for Type 2 Diabetes Mellitus [Active]; losartan 100 mg Oral tablet 1 tab daily for Hypertension [Active]; - PMHx: 11:50 Left sided weakness from previous CVA; CVA; Depression; Diabetes - NIDDM; DYSPHAGIA; ar8 GERD; Hyperlipidemia; Hypertension; Hypothyroidism; CKD (Left sided weakness); CAD; - Immunization history:: Adult Immunizations unknown. - Infectious Disease History:: Denies. - Social history:: Smoking status: Patient denies any tobacco usage or history of. ROS: 14:40 Constitutional: Negative for fever, and chills. Cardiovascular: Negative for chest ms3 pain, and palpitations. Abdomen/GI: Negative for abdominal pain, nausea, vomiting, diarrhea, and constipation, MS/Extremity: Negative for injury and deformity, Skin: Negative for injury, rash, and discoloration, 14:40 Respiratory: Positive for cough, shortness of breath, Exam: 14:40 Constitutional: This is a well developed, well nourished patient who is awake, alert, ms3 and in no acute distress. Cardiovascular: Regular rate and rhythm with a normal S1 and S2. No gallops, murmurs, or rubs. Normal PMI, no JVD. No pulse deficits. Respiratory: Lungs have equal breath sounds bilaterally, clear to auscultation and percussion. No rales, rhonchi or wheezes noted. No increased work of breathing, no retractions or nasal flaring. Abdomen/GI: Soft, non-tender, with normal bowel sounds. No distension or tympany. No guarding or rebound. No evidence of tenderness throughout. Skin: Warm, dry with normal turgor. Normal color with no rashes, no lesions, and no evidence of cellulitis. MS/ Extremity: Pulses equal, no cyanosis. Neurovascular intact. Full, normal range of motion. 15:45 ECG was reviewed by the Attending Physician. ms3 Vital Signs: 11:30 BP 138 / 72; Pulse 87; Resp 17 S; Temp 98.6(O); Pulse Ox 93% on R/A; Weight 86.18 kg; ar8 Height 5 ft. 9 in. ; Pain 4/10; 13:15 BP 137 / 75; Pulse 82; Resp 16; Pulse Ox 98% on 2 lpm NC; ar8 14:56 BP 141 / 86; Pulse 87; Resp 16; Pulse Ox 98% on R/A; ar8 15:30 BP 141 / 81; Pulse 85; Resp 16; Temp 98.2(O); Pulse Ox 98% on 2 lpm NC; ar8 16:30 BP 139 / 81; Pulse 84; Resp 19; Pulse Ox 98% on 2 lpm NC; ar8 17:45 BP 149 / 85; Pulse 95; Resp 20; Pulse Ox 98% on 2 lpm NC; ar8 11:30 Body Mass Index 28.06 (86.18 kg, 175.26 cm) ar8 11:30 Pain Scale: Adult ar8 MDM: 11:31 Medical Screening Exam initiated ms3 14:40 Differential diagnosis: Anemia CHF exacerbation, Myocardial Infarction. Data reviewed: ms3 vital signs, nurses notes, lab test result(s), EKG, radiologic studies, and as a result, I will admit patient. Consideration of Admission/Observation Patient was admitted/placed on observation. Management of patient was discussed with the following: Hospitalist: . I considered the following discharge prescriptions or medication management in the emergency department. Independent interpretation of the following test(s) in the Emergency Department EKG: See my EKG interpretation above X-Ray: My interpretation is Chest x-ray image reviewed by me does not reveal pulmonary edema or pleural effusions. Counseling: I had a detailed discussion with the patient and/or guardian regarding the historical points, exam findings, and any diagnostic results supporting the discharge/admit diagnosis, lab results, radiology results, the need for further work-up and treatment in the hospital. ED course: Discussed necessity for admission. Patient understands agrees with plan.. 03/24 11:35 Order name: Basic Metabolic Panel ms3 03/24 11:35 Order name: CBC with Diff; Complete Time: 12:30 ms3 03/24 11:35 Order name: LFT's ms3 03/24 11:35 Order name: Magnesium ms3 03/24 11:35 Order name: NT PRO-BNP ms3 03/24 11:35 Order name: PT-INR; Complete Time: 12:30 ms3 03/24 11:35 Order name: Troponin HS ms3 03/24 14:35 Order name: CBC with Automated Diff EDMS 03/24 14:35 Order name: CBC with Automated Diff EDMS 03/24 14:35 Order name: CBC with Automated Diff EDMS 03/24 14:35 Order name: CBC with Automated Diff EDMS 03/24 14:35 Order name: CBC with Automated Diff EDMS 03/24 14:35 Order name: Comprehensive Metabolic Panel EDMS 03/24 14:35 Order name: Comprehensive Metabolic Panel EDMS 03/24 14:35 Order name: Comprehensive Metabolic Panel EDMS 03/24 14:35 Order name: Comprehensive Metabolic Panel EDMS 03/24 14:35 Order name: Comprehensive Metabolic Panel EDMS 03/24 14:35 Order name: Troponin High Sensitivity EDMS 03/24 14:35 Order name: Troponin High Sensitivity; Complete Time: 17:43 EDMS 03/24 14:35 Order name: Troponin High Sensitivity EDMS 03/24 11:35 Order name: XRAY Chest (1 view); Complete Time: 12:31 ms3 03/24 11:35 Order name: EKG; Complete Time: 11:35 ms3 03/24 11:35 Order name: Cardiac monitoring; Complete Time: 12:20 ms3 03/24 11:35 Order name: EKG - Nurse/Tech; Complete Time: 12:20 ms3 03/24 11:35 Order name: IV Saline Lock; Complete Time: 11:56 ms3 03/24 11:35 Order name: Labs collected and sent; Complete Time: 11:56 ms3 03/24 11:35 Order name: O2 Per Protocol; Complete Time: 11:56 ms3 03/24 11:35 Order name: O2 Sat Monitoring; Complete Time: 11:56 ms3 EC:45 Rate is 91 beats/min. Rhythm is regular. QRS [place] is Normal. ID interval is normal. QRS ms3 interval is normal. Clinical impression: NSR w/ Non-specific ST/T Changes. Interpreted by me. Reviewed by me. Administered Medications: No medications were administered Disposition Summary: 03/24/25 13:46 Hospitalization Ordered Notes: Hospitalization Status: Inpatient Admission ms3 Provider: Karrie Leal ms3 Location: Telemetry/MedSurg (Inpatient) ms3 Condition: Stable ms3 Problem: new ms3 Symptoms: are unchanged ms3 Bed/Room Type: Standard ms3 Room Assignment: 204(03/24/25 15:33) bd Diagnosis - Subsequent non-ST elevation (NSTEMI) myocardial infarction ms3 - Shortness of breath ms3 Forms: - Medication Reconciliation Form ms3 - SBAR form ms3 - Leadership Thank You Letter ms3 Signatures: Dispatcher [employer] EDMS Lyndsay Wallace Marcus, DO DO ms3 Bill Leon, RN RN ar8 Corrections: (The following items were deleted from the chart) 15:33 13:46 ms3 bd
[2025-03-24] MEDS ORDERED: ONDANSETRON 4 MG/2 ML VIAL IV PRN (14:31)
--- NOTE | 2025-03-24 15:37 | P.HP ---
Certification for Inpatient Patient admitted to: Inpatient With expected LOS: >2 Midnights Patient will require the following post-hospital care: None Practitioner: I am a practitioner with admitting privileges, knowledge of patient current condition, hospital course, and medical plan of care. Services: Services provided to patient in accordance with Admission requirements found in Title 42 Section 412.3 of the Code of Federal Regulations <Sukhdeep Jorge - Last Filed: 03/24/25 15:34> Patient History Date of Service: 03/24/25 Reason for admission: NSTEMI History of Present Illness: 74-year-old male with history of previous hemorrhagic CVA, idp-edufylj-plnmponxu diabetes, CKD 3, hypertension, hyperlipidemia, GERD, hemiplegia, chronic systolic congestive heart failure presented to the emergency department chief complaint of shortness of breath. Family reports that he been feeling short of breath since yesterday, today got worse and EMS was called. He was administered a nebulizer treatment by EMS and reports that it greatly improved his symptoms. Patient was evaluated here in the emergency department his labs are significant for a creatinine of 1.77 GFR of 39 with a BUN of 23 near his baseline CBC with a hemoglobin 11.5 Marshall crit 35.6 high sensitive troponin initially at 100. Patient breathing is much improved, he is feeling well at this time but with the troponin being mildly elevated ED provider wishes to admit under observation for further evaluation. Patient did have an echocardiogram performed at our facility October 30 of this year which showed severely reduced LVEF of 15 to 20% with wall motion abnormalities, diastolic dysfunction. Severe global hypokinesis of the anterior, anteroseptal and apical wall akinesis. Patient denies chest pain at this time, he will be admitted for further evaluation and management. - Past Medical/Surgical History -: T2DM -: CAD MIx2 -: CVA -: HTN -: HLD -: hypothyroidism -: CHFsystolic -: CABG x 2 Psychosocial/ Personal History: Long-term resident at assisted - Social History Alcohol use: No CD- Drugs: No Caffeine use: No <Sukhdeep Jorge - Last Filed: 03/24/25 15:34> Date of Service: 03/24/25 <Karrie Leal - Last Filed: 03/24/25 16:08> Allergies No Known Allergies Allergy (Verified 12/13/24 13:00) Home Medications: Fluoxetine HCl 10 mg PO DAILY 12/18/20 Levothyroxine Sodium 25 mcg PO DAILY 12/18/20 Metformin HCl 1 tab PO BIDWM 12/18/20 Sennosides [Senna] 8.6 mg PO DAILY 12/18/20 Tramadol HCl [Ultram] 1 tab PO Q8HP PRN 12/18/20 levETIRAcetam [Keppra] 1 tab PO BID 12/18/20 ondansetron HCL [Zofran] 1 tab PO Q8H PRN 12/18/20 Atorvastatin Calcium [Lipitor*] 10 mg PO BEDTIME 03/02/24 Fluoxetine HCl 20 mg PO DAILY 03/02/24 Losartan Potassium 100 mg PO DAILY 03/02/24 Multivitamin [Multiple Vitamins] 1 each PO DAILY 03/02/24 Nitroglycerin [Nitrostat*] 0.4 mg SL SEECOM PRN 03/02/24 Pantoprazole [Protonix Tab*] 40 mg PO BID #60 tab 03/05/24 Calcium Carbonate [Tums] 2 tab PO BID* PRN 07/12/24 Hydralazine [Apresoline*] 25 mg PO BID 07/12/24 Lactulose 30 ml PO Q12HP PRN 07/12/24 Review of Systems 10-point ROS is otherwise unremarkable Respiratory: Cough, Shortness of Breath <Sukhdeep Jorge Quentin - Last Filed: 03/24/25 15:34> Physical Examination - Physical Exam General: Alert, In no apparent distress, Oriented x3 HEENT: Atraumatic, PERRLA, EOMI Neck: Supple, 2+ carotid pulse no bruit, No LAD, Without JVD or thyroid abnormality Respiratory: Normal air movement, Diminished Cardiovascular: Regular rate/rhythm, Normal S1 S2 Gastrointestinal: Normal bowel sounds, No tenderness Musculoskeletal: No tenderness Integumentary: No rashes Neurological: Normal gait, Normal speech, Normal strength at 5/5 x4 extr, Normal tone, Normal affect Lymphatics: No axilla or inguinal lymphadenopathy - Studies Laboratory Data (last 24 hrs) 03/24/25 03/24/25 03/24/25 11:44 11:44 11:44 WBC 7.70 Hgb 11.5 L Hct 35.6 L Plt Count 216 PT 12.3 INR 1.09 Sodium 142 Potassium 4.4 BUN 23 H Creatinine 1.77 H Glucose 181 H Magnesium 2.1 Total Bilirubin 0.7 AST 5 L ALT 19 Alkaline Phosphatase 63 <Sukhdeep Jorge - Last Filed: 03/24/25 15:34> - Studies Laboratory Data (last 24 hrs) 03/24/25 03/24/25 03/24/25 11:44 11:44 11:44 WBC 7.70 Hgb 11.5 L Hct 35.6 L Plt Count 216 PT 12.3 INR 1.09 Sodium 142 Potassium 4.4 BUN 23 H Creatinine 1.77 H Glucose 181 H Magnesium 2.1 Total Bilirubin 0.7 AST 5 L ALT 19 Alkaline Phosphatase 63 <Karrie Leal - Last Filed: 03/24/25 16:08> Assessment and Plan - Plan Assessment: NSTEMIhistory of CAD Chronic systolic congestive heart failure Dyspnea-improved History of hemorrhagic CVA/subarachnoid bleed Paraplegia Hypertension Hyperlipidemia GERD Yya-jzhwjux-vzypuutfj diabetes Plan: NSTEMIhistory of CAD Chronic systolic congestive heart failure Dyspnea-improved Denies chest pain Chest x-ray was clear Trend troponin and monitor on telemetry If troponin is significantly elevated on recheck we will order heparin drip Cardiology consultation placed Echocardiogram October of this year showed LVEF of 15 to 20% with wall motion abnormalities Per chart review history of CABG x 2 History of hemorrhagic CVA/subarachnoid bleed CKD 3 Paraplegia Hypertension Hyperlipidemia GERD Continue home medications when verified Sbv-oospuad-zzlkoyvsf diabetes ACHS Accu-Chek, sliding scale insulin DVT PPX: Heparin subcu Code status: Full code Discharge Plan: Home Plan to discharge in: 24 Hours - Advance Directives Does patient have a Living Will: No Does patient have a Durable POA for Healthcare: No - Code Status/Comfort Care Code Status Assessed: Yes (Full code) Critical Care: No Time Spent Managing Pts Care (In Minutes): 68 <Sukhdeep Jorge - Last Filed: 03/24/25 15:34> Physician Review: Patient Assessed, Agree with Above Assessment and Plan <Karrie Leal - Last Filed: 03/24/25 16:08>
[2025-03-24] MEDS: PANTOPRAZOLE 40MG TABLET PO SCH (16:30)
[2025-03-24] MEDS: INSULIN REGULAR (HUMAN) 100 UNIT/ML SQ SCH (16:30)
[2025-03-24 18:11] LABS: NT PRO-BNP 15599.0 pg/mL (<450)
[2025-03-24] MEDS: HEPARIN 5000 UNIT/ML 1 ML VIAL SQ SCH (21:29)
[2025-03-24] MEDS: HYDRALAZINE HCL 25 MG TABLET PO SCH (21:30)
[2025-03-24] MEDS: ATORVASTATIN 10 MG TAB PO SCH (21:30)
[2025-03-25] MEDS: TRAMADOL HCL 50 MG TAB PO PRN (00:52)
[2025-03-25 04:56] LABS: Absolute Lymphocytes (CBC) 1.0 K/uL (0.7-4.9); Hematocrit 32.8 % (39.6-49.0); Hemoglobin 10.8 g/dL (13.6-17.9); MCH 27.8 pg (27.0-35.0); MCHC 32.9 g/dL (32.0-36.0); MCV 84.5 fL (80-100); MPV 8.3 fL (7.6-11.3); Nucleated RBC Absolute Count 0.0 (0-0); Nucleated Red Blood Cells % 0.0 % (0-0); RBC Red Blood Cell Count 3.88 M/uL (4.33-5.43); White Blood Count 6.90 thou/uL (4.3-10.9)
[2025-03-25 05:05] LABS: ALT/SGPT 18 U/L (16-61); Albumin 3.0 g/dL (3.4-5.0); Albumin/Globulin Ratio 0.9 (1.1-1.8); Alkaline Phosphatase 63 U/L (45-117); Anion Gap 11.2 mEq/L (5.0-15.0); BUN Blood Urea Nitrogen 24 mg/dL (7-18); Globulin 3.3 g/dL (2.3-3.5); Glucose Level 115 mg/dL (74-106); Potassium 4.2 mEq/L (3.5-5.1)
[2025-03-25 05:08] LABS: AST/SGOT < 10 U/L (15-37)
[2025-03-25] MEDS: LEVOTHYROXINE SOD 0.025 MG TAB PO SCH (06:26)
[2025-03-25] MEDS: ASPIRIN EC 81 MG TAB PO SCH (08:55)
[2025-03-25] MEDS: LOSARTAN POTASSIUM 50 MG TABLET PO SCH (08:55)
[2025-03-25] MEDS: FUROSEMIDE 20 MG/ 2ML VIAL IV SCH (08:55)
[2025-03-25] MEDS: ALBUTEROL 2.5 MG/3 ML NEB SOL NEB PRN (11:03)
--- NOTE | 2025-03-25 12:06 | P.CNS ---
Date of Consult: 03/25/25 Chief Complaint: NSTEMI History of Present Illness: Patient with PMH of CAD s/p CABG x2, heart failure reduced EF, presented with worsening SOB, CHAPMAN, denies chest pain, no plapitations, no syncope. Allergies No Known Allergies Allergy (Verified 07/12/24 13:00) Home medications list reviewed: Yes Home Medications: Fluoxetine HCl 10 mg PO DAILY 12/18/20 Levothyroxine Sodium 25 mcg PO DAILY 12/18/20 Metformin HCl 1 tab PO BIDWM 12/18/20 Sennosides [Senna] 8.6 mg PO DAILY 12/18/20 Tramadol HCl [Ultram] 1 tab PO Q8HP PRN 12/18/20 levETIRAcetam [Keppra] 1 tab PO BID 12/18/20 ondansetron HCL [Zofran] 1 tab PO Q8H PRN 12/18/20 Atorvastatin Calcium [Lipitor*] 10 mg PO BEDTIME 03/02/24 Fluoxetine HCl 20 mg PO DAILY 03/02/24 Losartan Potassium 100 mg PO DAILY 03/02/24 Multivitamin [Multiple Vitamins] 1 each PO DAILY 03/02/24 Nitroglycerin [Nitrostat*] 0.4 mg SL SEECOM PRN 03/02/24 Pantoprazole [Protonix Tab*] 40 mg PO BID #60 tab 03/05/24 Calcium Carbonate [Tums] 2 tab PO BID* PRN 07/12/24 Hydralazine [Apresoline*] 25 mg PO BID 07/12/24 Lactulose 30 ml PO Q12HP PRN 07/12/24 - Past Medical/Surgical History Diabetic: Yes -: T2DM -: CAD MIx2 -: CVA -: HTN -: HLD -: hypothyroidism -: CHFsystolic -: CABG x 2 Psychosocial/ Personal History: Long-term resident at long-term - Social History Smoking Status: Unknown if ever smoked Alcohol use: No CD- Drugs: No Caffeine use: No Place of Residence: [facility] Review of Systems 10-point ROS is otherwise unremarkable Physical Examination Temp Pulse Resp BP Pulse Ox 97.8 F 86 18 171/78 H 93 03/25/25 08:00 03/25/25 08:00 03/25/25 08:00 03/25/25 08:00 03/25/25 08:00 General: Alert, In no apparent distress HEENT: Atraumatic, PERRLA, Mucous membr. moist/pink, EOMI, Sclerae nonicteric Neck: Supple, 2+ carotid pulse no bruit, No LAD, Without JVD or thyroid abnormality Respiratory: Clear to auscultation bilaterally, Normal air movement Cardiovascular: Regular rate/rhythm, Normal S1 S2 Gastrointestinal: Normal bowel sounds, No tenderness Musculoskeletal: No tenderness Integumentary: No rashes Neurological: Normal gait, Normal speech, Normal tone, Normal affect Lymphatics: No axilla or inguinal lymphadenopathy Laboratory Data (last 24 hrs) 03/24/25 11:44 Sodium 142 Potassium 4.4 BUN 23 H Creatinine 1.77 H Glucose 181 H Magnesium 2.1 Total Bilirubin 0.7 AST 5 L ALT 19 Alkaline Phosphatase 63 - Problems (1) Acute on chronic combined systolic (congestive) and diastolic (congestive) heart failure Current Visit: Yes Status: Acute Plan: increase lasix to 40 mg IV BID Continue Hydralazine and losartan continue to monitor input and output and electorlytes (2) CAD (coronary artery disease) Current Visit: No Status: Chronic Plan: patient with history of CABG x2, mild leak in troponin, type 2 AK from CHF/VONNIE ASA 81 mg daily outpatient follow up with cardiology for cardiac PET. Qualifiers: Coronary Disease-Associated Artery/Lesion type: bypass graft [place] vs. transplanted heart: [place] heart Associated angina: with unstable angina Qualified Code(s): I25.700 - Atherosclerosis of coronary artery bypass graft(s), unspecified, with unstable angina pectoris (3) HTN (hypertension) Current Visit: No Status: Chronic Plan: continue medications as above and monitor. Qualifiers: Hypertension type: essential hypertension Qualified Code(s): I10 - Essential (primary) hypertension
--- NOTE | 2025-03-25 15:38 | P.PN ---
Date of Service: 03/25/25 Subjective: Still with orthopnea/dyspnea on exertion No other acute events overnight ROS: 10 point ROS as noted above, otherwise negative Physical exam GEN: Alert, oriented, NAD HEENT: Normal conjunctiva, sclera anicteric CV: Regular rate and rhythm, no edema Pulm: Nonlabored respirations on room air ABD: Soft, nontender, nondistended MSK: No joint tenderness Integumentary: No rashes Neuro: Normal speech, normal affect Vitals reviewed Assessment: NSTEMIhistory of CAD Chronic systolic congestive heart failure Dyspnea-improved History of hemorrhagic CVA/subarachnoid bleed Paraplegia Hypertension Hyperlipidemia GERD [id number] diabetes Plan: NSTEMIhistory of CAD Chronic systolic congestive heart failure Dyspnea-improved Denies chest pain Troponin trended flat seen Continue IV diuresis Cardiology consultation placed Echocardiogram October of this year showed LVEF of 15 to 20% with wall motion abnormalities Per chart review history of CABG x 2 Continue diuresis overnight, possible discharge tomorrow with outpatient follow- up with cardiology History of hemorrhagic CVA/subarachnoid bleed CKD 3 Paraplegia Hypertension Hyperlipidemia GERD Continue home medications when verified Cuh-akfvowi-dfcnuxbba diabetes ACHS Accu-Chek, sliding scale insulin DVT PPX: Heparin subcu Code status: Full code Discharge Plan: Home Plan to discharge in: 24 Hours Time Spent Managing Pts Care (In Minutes): 35 <Sukhdeep Jorge - Last Filed: 03/25/25 15:37> I have personally seen and evaluated the patient. I have reviewed the history, physical exam findings, and assessment provided by Sukhdeep Jorge EXTRUSION SUPERVISOR. I agree with the plan of care as documented <Karrie Leal - Last Filed: 03/25/25 16:34>
[2025-03-25] MEDS: FUROSEMIDE 40 MG/4 ML VIAL IV SCH (17:05)
[2025-03-26 05:27] LABS: Absolute Lymphocytes (CBC) 1.2 K/uL (0.7-4.9); Hematocrit 33.6 % (39.6-49.0); Hemoglobin 11.5 g/dL (13.6-17.9); MCH 28.5 pg (27.0-35.0); MCHC 34.1 g/dL (32.0-36.0); MCV 83.7 fL (80-100); MPV 7.8 fL (7.6-11.3); Nucleated RBC Absolute Count 0.0 (0-0); Nucleated Red Blood Cells % 0.0 % (0-0); RBC Red Blood Cell Count 4.02 M/uL (4.33-5.43); White Blood Count 7.00 thou/uL (4.3-10.9)
[2025-03-26 05:47] VITALS: O2SAT 3
[2025-03-26 05:51] LABS: ALT/SGPT 21.0 U/L (16-61); AST/SGOT 12.0 U/L (15-37); Albumin 3.1 g/dL (3.4-5.0); Albumin/Globulin Ratio 0.9 (1.1-1.8); Alkaline Phosphatase 61.0 U/L (45-117); Anion Gap 9.9 mEq/L (5.0-15.0); BUN Blood Urea Nitrogen 24.0 mg/dL (7-18); Globulin 3.5 g/dL (2.3-3.5); Glucose Level 138.0 mg/dL (74-106); Potassium 3.9 mEq/L (3.5-5.1)
[2025-03-26 06:14] VITALS: BMI 21.4
--- NOTE | 2025-03-26 10:42 | P.PN ---
Subjective Date of Service: 03/26/25 Chief Complaint: NSTEMI Subjective: No new changes, No C/O voiced, Tolerating diet, Ambulating, Improving Review of Systems 10-point ROS is otherwise unremarkable Physical Examination - Vital Signs Temperature: 98.0 F Blood Pressure: 153/77 Pulse: 78 Respirations: 16 Pulse Ox (%): 93 - Physical Exam General: Alert, In no apparent distress HEENT: Atraumatic, PERRLA, EOMI Neck: Supple, JVD not distended Respiratory: Clear to auscultation bilaterally, Normal air movement Cardiovascular: Regular rate/rhythm, Normal S1 S2 Gastrointestinal: Normal bowel sounds, No tenderness Musculoskeletal: No tenderness Integumentary: No rashes Neurological: Normal speech, Normal tone, Normal affect Lymphatics: No axilla or inguinal lymphadenopathy - Studies Medications List Reviewed: Yes Assessment And Plan - Current Problems (Diagnosis) (1) Acute on chronic combined systolic (congestive) and diastolic (congestive) h eart failure Current Visit: Yes Status: Acute Plan: switch to lasix 40 mg po BID Continue Hydralazine and losartan continue to monitor input and output and electorlytes (2) CAD (coronary artery disease) Current Visit: No Status: Chronic Plan: patient with history of CABG x2, mild leak in troponin, type 2 ID from CHF/VONNIE ASA 81 mg daily outpatient follow up with cardiology for cardiac PET. Qualifiers: Coronary Disease-Associated Artery/Lesion type: bypass graft [place] vs. transplanted heart: [place] heart Associated angina: with unstable angina Qualified Code(s): I25.700 - Atherosclerosis of coronary artery bypass graft(s), unspecified, with unstable angina pectoris (3) HTN (hypertension) Current Visit: No Status: Chronic Plan: continue medications as above and monitor. Qualifiers: Hypertension type: essential hypertension Qualified Code(s): I10 - Essential (primary) hypertension Physician Review: Patient Assessed, Agree with Above Assessment and Plan
[2025-03-26 13:02] VITALS: BP 157/86; TEMP 98.5
--- NOTE | 2025-03-26 13:22 | P.DS ---
Admission Date: 03/25/25 Discharge Date: 03/26/25 Reason for Admission: NSTEMI Brief History of Present Illness: 74-year-old male with history of previous hemorrhagic CVA, [id number] diabetes, CKD 3, hypertension, hyperlipidemia, GERD, hemiplegia, chronic systolic congestive heart failure presented to the emergency department chief complaint of shortness of breath. Family reports that he been feeling short of breath since yesterday, today got worse and EMS was called. He was administered a nebulizer treatment by EMS and reports that it greatly improved his symptoms. Patient was evaluated here in the emergency department his labs are significant for a creatinine of 1.77 GFR of 39 with a BUN of 23 near his baseline CBC with a hemoglobin 11.5 Marshall crit 35.6 high sensitive troponin initially at 100. Patient breathing is much improved, he is feeling well at this time but with the troponin being mildly elevated ED provider wishes to admit under observation for further evaluation. Patient did have an echocardiogram performed at our facility October 30 of this ye ar which showed severely reduced LVEF of 15 to 20% with wall motion abnormalities, diastolic dysfunction. Severe global hypokinesis of the anterior, anteroseptal and apical wall akinesis. Patient denies chest pain at this time, he will be admitted for further evaluation and management. Hospital Course: Patient was admitted to hospital for dyspnea. He has known history of CHF. His most recent echocardiogram performed on 10/30/2024 showed severely reduced LVEF of 15 to 20% with wall motion abnormalities, diastolic dysfunction. He improved some with nebulizer treatment given by EMS but the following day had more orthopnea and dyspnea on exertion. He was started on IV Lasix and diuresed, also seen by cardiology. His troponin was initially mildly elevated and at 100.0, it peaked at 117.7 and is now downtrending, renal function is near baseline. Cardiology recommends outpatient follow-up for cardiac PET scan. Will start patient on Lasix 40 mg by mouth twice daily As needed nebulizer treatment/albuterol inhaler Continue other home medications as previously prescribed Follow-up with cardiology in 1 to 2 weeks for outpatient cardiac PET Assessment: NSTEMIhistory of CAD Chronic systolic congestive heart failure Dyspnea-improved History of hemorrhagic CVA/subarachnoid bleed Paraplegia Hypertension Hyperlipidemia GERD Dyq-zhuyfjp-ktvyqcani diabetes <Sukhdeep Jorge - Last Filed: 03/26/25 13:21> Admission Date: 03/25/25 Discharge Date: 03/26/25 <Karrie Leal - Last Filed: 03/26/25 15:51> Disposition: TRANSFER TO [facility] Discharge Condition: GOOD Vital Signs/Physical Exam: Temp Pulse Resp BP Pulse Ox 98.5 F 85 16 157/86 H 92 03/26/25 12:00 03/26/25 12:00 03/26/25 12:00 03/26/25 12:00 03/26/25 12:00 General: Alert, In no apparent distress, Oriented x3 HEENT: Atraumatic, PERRLA Neck: Supple, JVD not distended Respiratory: Clear to auscultation bilaterally, Normal air movement Cardiovascular: Regular rate/rhythm, Normal S1 S2 Gastrointestinal: Non-distended Neurological: Normal speech, Normal affect Laboratory Data at Discharge: WBC 7.00 thou/uL (4.3-10.9) 03/26/25 05:08 Hgb 11.5 g/dL (13.6-17.9) L 03/26/25 05:08 Hct 33.6 % (39.6-49.0) L 03/26/25 05:08 Plt Count 223 thou/uL (152-406) 03/26/25 05:08 PT 12.3 SECONDS (10-13.0) 03/24/25 11:44 INR 1.09 03/24/25 11:44 Sodium 136 mEq/L (136-145) D 03/26/25 05:08 Potassium 3.9 mEq/L (3.5-5.1) 03/26/25 05:08 BUN 24 mg/dL (7-18) H 03/26/25 05:08 Creatinine 1.81 mg/dL (0.70-1.30) H 03/26/25 05:08 Glucose 138 mg/dL (74-106) H 03/26/25 05:08 Magnesium 2.1 03/24/25 11:44 Total Bilirubin 0.8 mg/dL (0.2-1.0) 03/26/25 05:08 AST 12 U/L (15-37) L 03/26/25 05:08 ALT 21 U/L (16-61) 03/26/25 05:08 Alkaline Phosphatase 61 U/L (45-117) 03/26/25 05:08 <Sukhdeep Jorge - Last Filed: 03/26/25 13:21> Vital Signs/Physical Exam: Temp Pulse Resp BP Pulse Ox 98.5 F 85 16 157/86 H 92 03/26/25 12:00 03/26/25 12:00 03/26/25 12:00 03/26/25 12:00 03/26/25 12:00 Laboratory Data at Discharge: WBC 7.00 thou/uL (4.3-10.9) 03/26/25 05:08 Hgb 11.5 g/dL (13.6-17.9) L 03/26/25 05:08 Hct 33.6 % (39.6-49.0) L 03/26/25 05:08 Plt Count 223 thou/uL (152-406) 03/26/25 05:08 PT 12.3 SECONDS (10-13.0) 03/24/25 11:44 INR 1.09 03/24/25 11:44 Sodium 136 mEq/L (136-145) D 03/26/25 05:08 Potassium 3.9 mEq/L (3.5-5.1) 03/26/25 05:08 BUN 24 mg/dL (7-18) H 03/26/25 05:08 Creatinine 1.81 mg/dL (0.70-1.30) H 03/26/25 05:08 Glucose 138 mg/dL (74-106) H 03/26/25 05:08 Magnesium 2.1 03/24/25 11:44 Total Bilirubin 0.8 mg/dL (0.2-1.0) 03/26/25 05:08 AST 12 U/L (15-37) L 03/26/25 05:08 ALT 21 U/L (16-61) 03/26/25 05:08 Alkaline Phosphatase 61 U/L (45-117) 03/26/25 05:08 <Karrie Leal - Last Filed: 03/26/25 15:51> Diet: AHA Activity: Fall precautions Time spent managing pt's care (in minutes): 54 <Sukhdeep Jorge - Last Filed: 03/26/25 13:21> Physician Review: Patient Assessed, Agree with Above Assessment and Plan <Karrie Leal - Last Filed: 03/26/25 15:51> Home Medications: Fluoxetine HCl 10 mg PO DAILY 12/18/20 Levothyroxine Sodium 25 mcg PO DAILY 12/18/20 Sennosides [Senna] 8.6 mg PO DAILY 12/18/20 Tramadol HCl [Ultram] 1 tab PO Q12HP PRN 12/18/20 ondansetron HCL [Zofran] 1 tab PO Q8H PRN 12/18/20 Atorvastatin Calcium [Lipitor*] 10 mg PO BEDTIME 03/02/24 Fluoxetine HCl 40 mg PO DAILY 03/02/24 Losartan Potassium 100 mg PO DAILY 03/02/24 Multivitamin [Multiple Vitamins] 1 each PO DAILY 03/02/24 Nitroglycerin [Nitrostat*] 0.4 mg SL SEECOM PRN 03/02/24 Lactulose 30 ml PO Q12HP PRN 07/12/24 Acetaminophen 650 mg PO Q4HP PRN 03/26/25 Albuterol Inhaler [Ventolin Inhaler*] 2 puff IH Q6H PRN #2 inh 03/26/25 Albuterol Neb [Proventil 0.083% Neb Soln] 2.5 mg NEB [id number] PRN amp 03/26/25 Calcium Carbonate [Calcium] 1,000 mg PO Q12HP PRN 03/26/25 Ferrous Sulfate 325 mg PO DAILY 03/26/25 Furosemide [Lasix] 40 mg PO BIDL #60 tab 03/26/25 Guaifenesin/Dextromethorphan [Guaifenesin-Dm 100-10 mg/5 ml] 10 ml PO Q6HP PRN 03/26/25 Hydralazine HCl 50 mg PO BID 03/26/25 Pantoprazole [Protonix Tab*] 40 mg PO BID 03/26/25 New Medications: Furosemide [Lasix] 40 mg PO BIDL #60 tab Albuterol Inhaler [Ventolin Inhaler*] 2 puff IH Q6H PRN #2 inh PRN Reason: Shortness Of Breath Physician Discharge Instructions: Patient was admitted to hospital for dyspnea. He has known history of CHF. His most recent echocardiogram performed on 10/30/2024 showed severely reduced LVEF of 15 to 20% with wall motion abnormalities, diastolic dysfunction. He improved some with nebulizer treatment given by EMS but the following day had more orthopnea and dyspnea on exertion. He was started on IV Lasix and diuresed, also seen by cardiology. His respiratory status has improved, he is feeling much better. His troponin was initially mildly elevated and at 100.0, it peaked at 117.7 and is now downtrending, renal function is near baseline. Cardiology recommends outpatient follow-up for cardiac PET scan. Will start patient on Lasix 40 mg by mouth twice daily As needed nebulizer treatment/albuterol inhaler Continue other home medications as previously prescribed Follow-up with cardiology in 1 to 2 weeks for outpatient cardiac PET Followup: Joel Masters DO [ACTIVE - CAN ADMIT] - 1-2 Weeks Marco A Carreno MD [ACTIVE - CAN ADMIT] - 1-2 Weeks NONE,NONE [Primary Care Provider] - 1 Week
[2025-03-26] MEDS: ACETAMINOPHEN 325 MG TABLET PO PRN (15:54)
== END 2025-03-26 15:55 | DRG 280 ==
LOC: ER 11:23 → ERHOLD 14:30 → 2ND 15:57 → OBSVTOIN 03-25 12:19
PROVIDERS: ADMIT Family Medicine; ATTEND Family Medicine
DX: I13.0 Hypertensive heart and chronic kidney disease with heart failure and stage 1 through stage 4 chronic kidney disease, or unspecified chronic kidney disease (principal); I50.43 Acute on chronic combined systolic (congestive) and diastolic (congestive) heart failure; I21.A1 Myocardial infarction type 2; G82.20 Paraplegia, unspecified; N17.9 Acute kidney failure, unspecified; N18.30 Chronic kidney disease, stage 3 unspecified; E11.22 Type 2 diabetes mellitus with diabetic chronic kidney disease; E78.5 Hyperlipidemia, unspecified; E03.9 Hypothyroidism, unspecified; K21.9 Gastro-esophageal reflux disease without esophagitis; I25.700 Atherosclerosis of coronary artery bypass graft(s), unspecified, with unstable angina pectoris; I25.2 Old myocardial infarction; Z79.84 Long term (current) use of oral hypoglycemic drugs; Z86.73 Personal history of transient ischemic attack (TIA), and cerebral infarction without residual deficits; Z79.890 Hormone replacement therapy; Z79.899 Other long term (current) drug therapy
CPT/HCPCS: 36415; 71045; 80048; 80053; 80076; 82947; 83735; 83880; 84484; 85025; 85610; 93005; 99285; G0378; J1644; J1938; J7613